=== PATIENT | female | born 1940 | race Caucasian/White ===

== ENCOUNTER → 2020-05-28 10:33 | Outpatient (BNVA) | payer MEDICARE, SELFPAY | PROVIDERS: PCP Internal Medicine Cardiovascular Disease; Referring Provider Internal Medicine Cardiovascular Disease; Visit Provider Internal Medicine | DX: I48.91 Unspecified atrial fibrillation (principal); Z51.81 Encounter for therapeutic drug level monitoring; Z79.01 Long term (current) use of anticoagulants | CPT/HCPCS: 99211 ==

== ENCOUNTER 2020-05-28 18:42 | Outpatient (REF) | payer MEDICARE, SELFPAY | END 2020-05-28 18:43 | disposition home or self-care (01) | LOC: HO.LNP 18:42 | PROVIDERS: Visit Provider Internal Medicine | DX: I48.91 Unspecified atrial fibrillation (principal); Z51.81 Encounter for therapeutic drug level monitoring; Z79.01 Long term (current) use of anticoagulants | CPT/HCPCS: 85610 ==

== ENCOUNTER → 2020-06-08 15:14 | Outpatient (BNVA) | payer MEDICARE, SELFPAY | PROVIDERS: PCP Internal Medicine; Visit Provider Internal Medicine | DX: I48.20 Chronic atrial fibrillation, unspecified (principal); Z51.81 Encounter for therapeutic drug level monitoring; Z79.01 Long term (current) use of anticoagulants | CPT/HCPCS: 85610; 99211 ==

== ENCOUNTER → 2020-06-21 09:23 | Outpatient (BNVA) | payer MEDICARE, SELFPAY | PROVIDERS: PCP Internal Medicine; Visit Provider Internal Medicine | DX: I48.20 Chronic atrial fibrillation, unspecified (principal); Z79.01 Long term (current) use of anticoagulants; Z51.81 Encounter for therapeutic drug level monitoring | CPT/HCPCS: 85610; 99211 ==

== ENCOUNTER → 2020-06-29 09:56 | Outpatient (REF) | payer MEDICARE, SELFPAY ==
--- NOTE | 2020-06-29 10:30 | CA_ITS ---
Transthoracic Echocardiogram Patient (Last, First, Middle): Sandra Herrera A Gender: Female Date of : 1940 Age: 80 Procedure Date: 06/29/2020 Procedure Type: Transthoracic Echocardiogram Location: OP Height: 157.48 cm Weight: 38.56 kg BSA: 1.33 m2 Heart Rate: bpm BP: 102 / 70 mmHg Surgical Elastic Knitter: Carol MD: Pilar Mcguire MD Symptoms: S/P MITRACLIP PROCEDURE Study Quality: Good ECG Rhythm: Atrial Fibrillation Conclusions: - The left ventricular systolic function is low normal. The visually estimated ejection fraction is between 50-55%. - Moderately increased right ventricular cavity size. There is moderate to severely decreased right ventricular systolic function. - Severe biatrial enlargement. - Status post collin-clip procedure. Mean gradient across the mitral valve 4mmHg at 69/min. There is mild mitral valve regurgitation. - There is moderate to severe tricuspid valve regurgitation. Findings Left Ventricle Normal left ventricular cavity size. There is normal left ventricular wall thickness. The left ventricular systolic function is low normal. The visually estimated ejection fraction is between 50-55%. The calculated ejection fraction is 53% by biplane method. There is no evidence of regional wall motion abnormalities. There is a flattened septum in diastole ( D shaped left ventricle) consistent with right ventricular volume overload. Right Ventricle Moderately increased right ventricular cavity size. There is moderate to severely decreased right ventricular systolic function. Atria Severe biatrial enlargement. Suspect iatrogenic [id number] interatrial shunt based on color Doppler. Aortic Valve There is a normal trileaflet aortic valve. There is no aortic valve stenosis. There is mild aortic valve regurgitation. Mitral Valve There is mild mitral valve regurgitation. Status post collin-clip procedure. Mean gradient across the mitral valve 4mmHg at 69/min. Pulmonic Valve The pulmonic valve was not well visualized. There is trace pulmonic valve regurgitation. Tricuspid Valve Normal tricuspid valve structure. There is moderate to severe tricuspid valve regurgitation. The pulmonary artery systolic pressure is normal. Great Vessels The aortic annulus, sinuses of valsalva, and asc aorta are normal in size. Venous The inferior vena cava is normal in size and collapses greater than 50% with inspiration. Pericardium/Pleural There is no evidence of pericardial effusion. Prior Study Comparison Changes noted compared to prior study dated: 12/27/2019. Improved mitral regurgitation severity after MitraClip. Measurements 2D Linear Measurements RVIDd: 3.16 RVIDd Index: 2.38 IVSd: 0.99 0.6-0.9/0.6-1.0 cm LVIDd: 4.78 3.9-5.3/4.2-5.9 cm LVIDd Index: 3.59 2.4-3.2/2.2-3.1 cm/m2 LVIDs: 3.31 2.0-3.6 cm LVPWd: 0.97 0.7-1.1 cm Ao Root: 2.80 2.1-3.5 cm LA Diam: 5.50 2.7-3.8/3.0-4.0 cm LAIDs Index: 4.14 1.5-2.3 cm/m2 LV Mass: 204.56 67-162/88-224 g LV Mass Index: 153.81 43-95/49-115 g/m2 LVOT Diam: 2.00 3.0+(-)1.3 cm 2D Systolic Function EF 4C: 49.70 >55% EF 2C: 55.10 >55% EF BiP: 52.70 >55% Mitral Valve MV VTI: 0.42 MV Pk Eduard: 1.58 MV Mn Eduard: 0.94 MV Pk Grad: 10.00 MV Mn Grad: 4.00 MVA Continuity: 0.74 MR ERO: 13.00 MR Alias Eduard: 0.29 MR RAD: 0.60 Aortic Valve AoV Pk Eduard: 1.08 AoV Mn Eduard: 0.78 AoV VTI: 0.21 AoV Pk Grad: 5.00 Aov Mn Grad: 3.00 JAZMIN Cont.VTI: 1.49 AI Pk Eduard: 3.76 AI Sully: 1.90 LVOT LVOT Pk Eduard: 0.55 LVOT Mn Eduard: 0.33 LVOT VTI: 0.10 LVOT Pk Grad: 1.00 LVOT Mn Grad: 1.00 LVOT Diam: 2.00 LVOT Area: 3.14 Tricuspid Valve TR Pk Eduard: 2.40 TR Pk Grad: 23.00 RA Press: 8.00 RVSP: 31.00 Great Vessels Aorta Ao Root-2D: 2.80 2.0-3.7 cm Ao Asc: 3.00 2.1-3.4 cm Ao Arch: 2.90 Updated in Other Vendor System with Status of Final Pedro Joseph MD electronically signed on 06/29/2020 1:03:25 PM with status of Final
== END ==
LOC: HO.CARD 09:56
PROVIDERS: Visit Provider Internal Medicine Cardiovascular Disease
DX: Z98.890 Other specified postprocedural states (principal); Z95.2 Presence of prosthetic heart valve
CPT/HCPCS: 85610; 93306

== ENCOUNTER → 2020-07-06 08:51 | Outpatient (BNVA) | payer MEDICARE, SELFPAY | PROVIDERS: PCP Internal Medicine; Visit Provider Internal Medicine | DX: I48.20 Chronic atrial fibrillation, unspecified (principal); Z51.81 Encounter for therapeutic drug level monitoring; Z79.01 Long term (current) use of anticoagulants | CPT/HCPCS: 85610; 99211 ==

== ENCOUNTER → 2020-07-13 10:05 | Outpatient (BNVA) | payer MEDICARE, SELFPAY | PROVIDERS: PCP Internal Medicine; Referring Provider Internal Medicine; Visit Provider Internal Medicine Cardiovascular Disease | DX: I34.0 Nonrheumatic mitral (valve) insufficiency (principal); I38 Endocarditis, valve unspecified; I50.9 Heart failure, unspecified; I48.20 Chronic atrial fibrillation, unspecified; Z79.01 Long term (current) use of anticoagulants; Z95.818 Presence of other cardiac implants and grafts | CPT/HCPCS: 99212 ==

== ENCOUNTER → 2020-07-14 09:57 | Outpatient (BNVA) | payer MEDICARE, SELFPAY | PROVIDERS: PCP Internal Medicine; Visit Provider Internal Medicine | DX: I48.20 Chronic atrial fibrillation, unspecified (principal); Z51.81 Encounter for therapeutic drug level monitoring; Z79.01 Long term (current) use of anticoagulants | CPT/HCPCS: 85610; 99211 ==

== ENCOUNTER 2020-07-20 09:22 | Outpatient (REF) | payer MEDICARE, SELFPAY ==
[2020-07-20 12:33] LABS: Free T4 (Free Thyroxine) 1.31 ng/dL (0.71-1.85); Thyroid Stimulating Hormone 3.37 uIU/mL (0.32-4.0)
== END 2020-07-20 09:23 | disposition home or self-care (01) ==
LOC: HO.LAB 09:22
PROVIDERS: PCP Internal Medicine; Visit Provider Internal Medicine Endocrinology, Diabetes & Metabolism
DX: E03.9 Hypothyroidism, unspecified (principal)
CPT/HCPCS: 84439; 84443; 85610; 99211

== ENCOUNTER → 2020-07-30 09:42 | Outpatient (BNVA) | payer MEDICARE, SELFPAY | PROVIDERS: PCP Internal Medicine; Visit Provider Internal Medicine | DX: I48.91 Unspecified atrial fibrillation (principal); Z51.81 Encounter for therapeutic drug level monitoring; Z79.01 Long term (current) use of anticoagulants | CPT/HCPCS: 85610; 99211 ==

== ENCOUNTER → 2020-08-09 10:18 | Outpatient (BNVA) | payer MEDICARE, SELFPAY | PROVIDERS: PCP Internal Medicine; Visit Provider Internal Medicine | DX: I48.91 Unspecified atrial fibrillation (principal); Z51.81 Encounter for therapeutic drug level monitoring; Z79.01 Long term (current) use of anticoagulants | CPT/HCPCS: 85610; 99211 ==

== ENCOUNTER → 2020-08-16 10:06 | Outpatient (BNVA) | payer MEDICARE, SELFPAY | PROVIDERS: PCP Internal Medicine; Visit Provider Internal Medicine | DX: I48.91 Unspecified atrial fibrillation (principal); Z51.81 Encounter for therapeutic drug level monitoring; Z79.01 Long term (current) use of anticoagulants | CPT/HCPCS: 85610; 99211 ==

== ENCOUNTER → 2020-09-01 10:39 | Outpatient (BNVA) | payer MEDICARE, SELFPAY | PROVIDERS: PCP Internal Medicine; Visit Provider Internal Medicine | DX: I48.20 Chronic atrial fibrillation, unspecified (principal); Z79.01 Long term (current) use of anticoagulants; Z51.81 Encounter for therapeutic drug level monitoring | CPT/HCPCS: 85610; 99211 ==

== ENCOUNTER → 2020-09-08 10:16 | Outpatient (BNVA) | payer MEDICARE, SELFPAY | PROVIDERS: PCP Internal Medicine; Visit Provider Internal Medicine | DX: I48.91 Unspecified atrial fibrillation (principal); I48.20 Chronic atrial fibrillation, unspecified; Z79.01 Long term (current) use of anticoagulants; Z51.81 Encounter for therapeutic drug level monitoring | CPT/HCPCS: 85610; 99211 ==

== ENCOUNTER → 2020-09-14 09:39 | Outpatient (BNVA) | payer MEDICARE, SELFPAY | PROVIDERS: PCP Internal Medicine; Visit Provider Internal Medicine Cardiovascular Disease | DX: I50.9 Heart failure, unspecified (principal); I38 Endocarditis, valve unspecified; I48.20 Chronic atrial fibrillation, unspecified; I34.0 Nonrheumatic mitral (valve) insufficiency; I07.1 Rheumatic tricuspid insufficiency; I51.7 Cardiomegaly | CPT/HCPCS: 99212 ==

== ENCOUNTER → 2020-09-17 10:25 | Outpatient (BNVA) | payer MEDICARE, SELFPAY | PROVIDERS: PCP Internal Medicine; Visit Provider Internal Medicine | DX: I48.91 Unspecified atrial fibrillation (principal); Z51.81 Encounter for therapeutic drug level monitoring; Z79.01 Long term (current) use of anticoagulants | CPT/HCPCS: 85610 ==

== ENCOUNTER → 2020-10-01 10:17 | Outpatient (BNVA) | payer MEDICARE, SELFPAY | PROVIDERS: PCP Internal Medicine; Visit Provider Internal Medicine | DX: I48.91 Unspecified atrial fibrillation (principal); Z51.81 Encounter for therapeutic drug level monitoring; Z79.01 Long term (current) use of anticoagulants | CPT/HCPCS: 85610; 99211 ==

== ENCOUNTER → 2020-10-22 10:28 | Outpatient (BNVA) | payer MEDICARE, SELFPAY | PROVIDERS: PCP Internal Medicine; Visit Provider Internal Medicine | DX: I48.91 Unspecified atrial fibrillation (principal); Z51.81 Encounter for therapeutic drug level monitoring; Z79.01 Long term (current) use of anticoagulants | CPT/HCPCS: 85610; 99211 ==

== ENCOUNTER → 2020-11-12 10:18 | Outpatient (BNVA) | payer MEDICARE, SELFPAY | PROVIDERS: PCP Internal Medicine; Visit Provider Internal Medicine | DX: I48.91 Unspecified atrial fibrillation (principal); Z51.81 Encounter for therapeutic drug level monitoring; Z79.01 Long term (current) use of anticoagulants | CPT/HCPCS: 85610; 99211 ==

== ENCOUNTER 2020-11-22 10:22 | Outpatient (REF) | payer MEDICARE, SELFPAY ==
[2020-11-22 12:03] LABS: MANUAL DIFF FLAG NO
[2020-11-22 12:06] LABS: Glucose Urine UA NEG (NEG); Leukocyte Esterase Urine TRACE (NEG); Nitrite Urine NEG (NEG); Specific Gravity - Urine 1.025 (1.005-1.025); UACC Culture Trigger YES; Urine Blood 2+ (NEG); Urine Ketones NEG (NEG); Urine Protein TRACE MG/DL (NEG-TRACE)
[2020-11-22 12:09] LABS: Appearance Urine CLEAR; Color Urine YELLOW
[2020-11-22 12:10] LABS: Basophils Percent Auto 0.7 % (0-2); Eosinophils Absolute Auto 0.1 X10*3/uL (0.0-0.4); Eosinophils Percent Auto 3.2 % (0-4); Hematocrit 44.7 % (37-47); Hemoglobin 14.1 g/dl (12.0-16.0); Imm Gran Abs Auto 0.02 X10*3/uL (0.00-0.03); Imm Gran Pct Auto 0.5 % (0.0-0.4); Lymphocytes Absolute Auto 1.2 X10*3/uL (1.2-4.9); Lymphocytes Percent Auto 27.8 % (20-40); Mean Corpuscular HGB Conc 31.5 g/dl (31.0-35.0); Mean Platelet Volume 9.3 fL (9.4-12.3); Monocytes Absolute Auto 0.6 X10*3/uL (0.1-1.2); Monocytes Percent Auto 13.1 % (2-11); Neutrophils Absolute Auto 2.4 X10*3/uL (2.0-8.3); Neutrophils Percent Auto 54.7 % (45-73); Platelet Count 196 X10*3/uL (160-400); Red Blood Count 4.86 X10*6/uL (4.20-5.50); Red Cell Distribution Width 17.3 % (11.0-16.0); White Blood Count 4.4 X10*3/uL (4.8-10.8)
[2020-11-22 12:19] LABS: Bacteria Urine TRACE /LPF; Squamous Epithelial Cell Urine 4+ /LPF
[2020-11-22 12:33] LABS: B Type Natriuretic Peptide 1150 pg/mL (<100)
[2020-11-22 12:36] LABS: Alanine Aminotransferase 24 U/L (0-31); Albumin Level 3.7 g/dL (3.5-5.0); Alkaline Phosphatase 98 U/L (39-117); Anion Gap 13 (12-20); Aspartate Amino Transferase 38 U/L (5-31); Blood Urea Nitrogen 38 mg/dL (9-16); Calcium 8.8 mg/dL (8.4-10.2); Carbon Dioxide 29 mmol/L (22-29); Chloride 99 mmol/L (96-108); Cholesterol 197 mg/dL; Estimated Glomerular Filt Rate 45; Glucose Fasting 89 mg/dL (60-99); HDL Cholesterol 53 mg/dL; LDL Cholesterol Calculated 120 mg/dl; Potassium 4.2 mmol/L (3.3-5.1); Sodium 137 mmol/L (135-145); Total Protein 6.5 g/dL (6.5-8.0); Triglycerides 120 mg/dL
[2020-11-22 12:57] LABS: Free T4 (Free Thyroxine) 1.59 ng/dL (0.71-1.85); Thyroid Stimulating Hormone 0.44 uIU/mL (0.32-4.0); Vitamin D 25-OH Total 49.7 ng/mL (>30)
== END 2020-11-22 10:23 | disposition home or self-care (01) ==
LOC: HO.LAB 10:22
PROVIDERS: PCP Internal Medicine; Visit Provider Internal Medicine
DX: I50.30 Unspecified diastolic (congestive) heart failure (principal); I38 Endocarditis, valve unspecified; I48.20 Chronic atrial fibrillation, unspecified; I50.9 Heart failure, unspecified; K58.9 Irritable bowel syndrome, unspecified; N18.31 Chronic kidney disease, stage 3a; E78.00 Pure hypercholesterolemia, unspecified; E03.9 Hypothyroidism, unspecified; E55.9 Vitamin D deficiency, unspecified; M81.0 Age-related osteoporosis without current pathological fracture
CPT/HCPCS: 36415; 80053; 80061; 81001; 81003; 82306; 83880; 84439; 84443; 85025; 87086

== ENCOUNTER → 2020-11-26 10:14 | Outpatient (BNVA) | payer MEDICARE, SELFPAY | PROVIDERS: PCP Internal Medicine; Visit Provider Internal Medicine | DX: I48.20 Chronic atrial fibrillation, unspecified (principal); Z79.01 Long term (current) use of anticoagulants; Z51.81 Encounter for therapeutic drug level monitoring | CPT/HCPCS: 85610; 99211 ==

== ENCOUNTER → 2020-12-10 10:14 | Outpatient (BNVA) | payer MEDICARE, SELFPAY | PROVIDERS: PCP Internal Medicine; Visit Provider Internal Medicine | DX: I48.91 Unspecified atrial fibrillation (principal); Z79.01 Long term (current) use of anticoagulants; Z51.81 Encounter for therapeutic drug level monitoring | CPT/HCPCS: 85610; 99211 ==

== ENCOUNTER → 2020-12-14 09:28 | Outpatient (BNVA) | payer MEDICARE, SELFPAY | PROVIDERS: PCP Internal Medicine; Visit Provider Nurse Practitioner Family | DX: I50.9 Heart failure, unspecified (principal); I38 Endocarditis, valve unspecified; I34.0 Nonrheumatic mitral (valve) insufficiency; I07.1 Rheumatic tricuspid insufficiency; I48.20 Chronic atrial fibrillation, unspecified; I51.7 Cardiomegaly | CPT/HCPCS: 99212 ==

== ENCOUNTER → 2020-12-24 10:12 | Outpatient (BNVA) | payer MEDICARE, SELFPAY | PROVIDERS: PCP Internal Medicine; Visit Provider Internal Medicine | DX: I48.20 Chronic atrial fibrillation, unspecified (principal); Z51.81 Encounter for therapeutic drug level monitoring; Z79.01 Long term (current) use of anticoagulants | CPT/HCPCS: 85610; 99211 ==

== ENCOUNTER 2020-12-30 09:40 | Outpatient (REF) | payer MEDICARE, SELFPAY ==
[2020-12-30 11:16] LABS: Alanine Aminotransferase 27 U/L (0-31); Albumin Level 3.8 g/dL (3.5-5.0); Alkaline Phosphatase 106 U/L (39-117); Anion Gap 12 (12-20); Aspartate Amino Transferase 40 U/L (5-31); Bilirubin Total 1.1 mg/dL (0.0-1.0); Blood Urea Nitrogen 44 mg/dL (9-16); Calcium 9.4 mg/dL (8.4-10.2); Carbon Dioxide 30 mmol/L (22-29); Chloride 102 mmol/L (96-108); Estimated Glomerular Filt Rate 41; Glucose Random 112 mg/dL (60-115); Potassium 4.3 mmol/L (3.3-5.1); Sodium 140 mmol/L (135-145); Total Protein 6.6 g/dL (6.5-8.0)
[2020-12-30 11:38] LABS: Vitamin D 25-OH Total 50.8 ng/mL (>30)
[2021-01-04 16:57] LABS: N-Telopeptide 41 (see note); NTXCreaRU 18 mg/dL (20-275)
== END 2020-12-30 09:41 | disposition home or self-care (01) ==
LOC: HO.LAB 09:40
PROVIDERS: PCP Internal Medicine; Visit Provider Internal Medicine Endocrinology, Diabetes & Metabolism
DX: M81.0 Age-related osteoporosis without current pathological fracture (principal)
CPT/HCPCS: 36415; 80053; 82306; 82523

== ENCOUNTER → 2020-12-31 09:40 | Outpatient (BNVA) | payer MEDICARE, SELFPAY | PROVIDERS: PCP Internal Medicine; Visit Provider Internal Medicine Endocrinology, Diabetes & Metabolism | DX: M81.0 Age-related osteoporosis without current pathological fracture (principal); E03.9 Hypothyroidism, unspecified | CPT/HCPCS: 99212 ==

== ENCOUNTER → 2021-01-11 10:11 | Outpatient (BNVA) | payer MEDICARE, SELFPAY | PROVIDERS: PCP Internal Medicine; Visit Provider Internal Medicine | DX: I48.91 Unspecified atrial fibrillation (principal); Z51.81 Encounter for therapeutic drug level monitoring; Z79.01 Long term (current) use of anticoagulants | CPT/HCPCS: 85610; 99211 ==

== ENCOUNTER → 2021-01-25 10:22 | Outpatient (BNVA) | payer MEDICARE, SELFPAY | PROVIDERS: PCP Internal Medicine; Visit Provider Internal Medicine | DX: Z79.01 Long term (current) use of anticoagulants (principal) | CPT/HCPCS: 85610; 99211 ==

== ENCOUNTER 2021-01-27 09:04 | Outpatient (REF) | payer MEDICARE, SELFPAY ==
--- NOTE | ~2021-01-27 | MM_ITS ---
EXAMINATION: BONE DENSITOMETRY CLINICAL INDICATION: Age-related osteoporosis without current pathological fracture. COMPARISON: Previous BD dated 09/24/2018 and baseline BD dated 10/04/2007. TECHNIQUE: Using a [employer] DXA System (software version: 13.1) manufactured by [employer], dual-energy x-ray absorptiometry was performed of the lumbar spine and left hip. The images are of good technical quality. Summary results are attached. FINDINGS: AP SPINE L1-L4: Current: BMD 0.799 g/cm2, Z-score -0.5, T-score -3.2, osteoporosis, 10.0% decrease from previous, 18.0% decrease from baseline (<5% change is not significant). Prior: BMD 0.888 g/cm2. Baseline: BMD 0.974 g/cm2. LEFT FEMUR, NECK: Current: BMD 0.617 g/cm2, Z-score -0.3, T-score -3.0, osteoporosis. Prior: BMD 0.735 g/cm2. Baseline: BMD 0.783 g/cm2. LEFT FEMUR, TOTAL: Current: BMD 0.660 g/cm2, Z-score -0.1, T-score -2.8, osteoporosis, 10.7% decrease from previous, 24.0% decrease from baseline (<5% change is not significant). Prior: BMD 0.739 g/cm2. Baseline: BMD 0.868 g/cm2. IDENTIFIED RISK FACTORS: Height loss, family history (parental hip fracture), menopause. HISTORY OF FRACTURE: None listed. MEDICATIONS: Vitamin D. MM/XR DEXA axial skeleton IMPRESSION: 1. DIAGNOSIS: Osteoporosis based on the lowest T-score value of -3.2 in the lumbar spine applying World Health Organization criteria. 2. 10-YEAR FRACTURE RISK PREDICTION, FRAX: Major osteoporotic fracture (clinical spine, forearm, hip or shoulder) 39.1%. Hip fracture 31.1%. 3. Treatment Recommendations: NOF guidelines recommend consideration for treatment in postmenopausal women and men age 50 and older presenting with the following: -A hip or vertebral (clinical or morphometric) fracture. -T-score less than or equal to -2.5 at the femoral neck or spine after appropriate evaluation to exclude secondary causes. -Low bone mass at the hip or spine and a 10-year fracture probability by FRAX of greater than or equal to 3% for hip fracture or greater than or equal to 20% for major osteoporotic fracture based on the [place] adapted WHO algorithm. 4. Other Recommendations: All treatment decisions require clinical judgment and consideration of individual patient factors, including patient preferences, comorbidities, previous drug use, risk factors not captured in the FRAX model (e.g. frailty, falls, vitamin D deficiency, increased bone turnover, interval significant decline in bone density) and possible under or overestimation of fracture risk by FRAX. Additional medical evaluation for secondary cause of low bone mineral density may be appropriate. FUTURE SCAN RECOMMENDATION: People with diagnosed cases of osteoporosis or at high risk for fracture should have regular bone mineral density tests. For patients eligible for Medicare, routine testing is allowed once every 2 years. The testing frequency can be increased to one year for patients who have rapidly progressing disease, those who are receiving or discontinuing medical therapy to restore bone mass, or have additional risk factors.
[2021-01-27 12:12] LABS: MANUAL DIFF FLAG NO
[2021-01-27 12:18] LABS: Basophils Percent Auto 0.6 % (0-2); Eosinophils Absolute Auto 0.1 X10*3/uL (0.0-0.4); Eosinophils Percent Auto 2.2 % (0-4); Hematocrit 44.3 % (37-47); Hemoglobin 13.9 g/dl (12.0-16.0); Imm Gran Abs Auto 0.01 X10*3/uL (0.00-0.03); Imm Gran Pct Auto 0.2 % (0.0-0.4); Lymphocytes Absolute Auto 1.1 X10*3/uL (1.2-4.9); Lymphocytes Percent Auto 22.8 % (20-40); Mean Corpuscular HGB Conc 31.4 g/dl (31.0-35.0); Mean Corpuscular Hemoglobin 29.8 pg (27.0-33.0); Mean Corpuscular Volume 94.9 fL (80-98); Monocytes Absolute Auto 0.5 X10*3/uL (0.1-1.2); Monocytes Percent Auto 9.8 % (2-11); Neutrophils Absolute Auto 3.2 X10*3/uL (2.0-8.3); Neutrophils Percent Auto 64.4 % (45-73); Platelet Count 170 X10*3/uL (160-400); Red Blood Count 4.67 X10*6/uL (4.20-5.50); Red Cell Distribution Width 15.8 % (11.0-16.0); White Blood Count 4.9 X10*3/uL (4.8-10.8)
[2021-01-27 12:26] LABS: D Dimer < 200 NG/ML
[2021-01-27 13:02] LABS: Alanine Aminotransferase 21 U/L (0-31); Alkaline Phosphatase 104 U/L (39-117); Anion Gap 12 (12-20); Aspartate Amino Transferase 35 U/L (5-31); Bilirubin Total 1.2 mg/dL (0.0-1.0); Blood Urea Nitrogen 36 mg/dL (9-16); Calcium 9.1 mg/dL (8.4-10.2); Carbon Dioxide 28 mmol/L (22-29); Chloride 105 mmol/L (96-108); Estimated Glomerular Filt Rate 44; Glucose Random 87 mg/dL (60-115); Potassium 4.3 mmol/L (3.3-5.1); Sodium 141 mmol/L (135-145); Total Protein 6.9 g/dL (6.5-8.0)
[2021-01-27 13:33] LABS: Erythrocyte Sedimentation Rate 7 MM/HR (0-20)
== END 2021-01-27 09:05 | disposition home or self-care (01) ==
LOC: HO.MAMMO 09:04
PROVIDERS: Absent Provider Internal Medicine; PCP Internal Medicine; Visit Provider Internal Medicine Endocrinology, Diabetes & Metabolism
DX: Z13.820 Encounter for screening for osteoporosis (principal); M81.0 Age-related osteoporosis without current pathological fracture; R23.3 Spontaneous ecchymoses; Z78.0 Asymptomatic menopausal state; Z79.01 Long term (current) use of anticoagulants; Z79.899 Other long term (current) drug therapy
CPT/HCPCS: 36415; 77080; 80053; 85025; 85379; 85652

== ENCOUNTER → 2021-02-15 10:12 | Outpatient (BNVA) | payer MEDICARE, SELFPAY | PROVIDERS: PCP Internal Medicine; Visit Provider Internal Medicine | DX: I48.91 Unspecified atrial fibrillation (principal); Z51.81 Encounter for therapeutic drug level monitoring; Z79.01 Long term (current) use of anticoagulants | CPT/HCPCS: 85610; 99211 ==

== ENCOUNTER → 2021-03-08 09:58 | Outpatient (BNVA) | payer MEDICARE, SELFPAY | PROVIDERS: PCP Internal Medicine; Visit Provider Internal Medicine | DX: I48.20 Chronic atrial fibrillation, unspecified (principal); Z51.81 Encounter for therapeutic drug level monitoring; Z79.01 Long term (current) use of anticoagulants | CPT/HCPCS: 85610; 99211 ==

== ENCOUNTER → 2021-03-22 09:31 | Outpatient (BNVA) | payer MEDICARE, SELFPAY | PROVIDERS: PCP Internal Medicine; Visit Provider Internal Medicine | DX: I48.20 Chronic atrial fibrillation, unspecified (principal); I50.9 Heart failure, unspecified; I83.893 Varicose veins of bilateral lower extremities with other complications; Z51.81 Encounter for therapeutic drug level monitoring; Z79.01 Long term (current) use of anticoagulants; Z79.899 Other long term (current) drug therapy; Z98.890 Other specified postprocedural states | CPT/HCPCS: 85610; 99211; 99212 ==

== ENCOUNTER → 2021-04-12 10:13 | Outpatient (BNVA) | payer MEDICARE, SELFPAY | PROVIDERS: PCP Internal Medicine; Visit Provider Internal Medicine | DX: I48.20 Chronic atrial fibrillation, unspecified (principal); Z51.81 Encounter for therapeutic drug level monitoring; Z79.01 Long term (current) use of anticoagulants | CPT/HCPCS: 85610; 99211 ==

== ENCOUNTER → 2021-04-15 09:05 | Outpatient (REF) | payer MEDICARE, SELFPAY ==
--- NOTE | 2021-04-15 09:08 | CA_ITS ---
Transthoracic Echocardiogram Patient (Last, First, Middle): Sandra Herrera A Gender: Female Date of : 1940 Age: 80 Procedure Date: 04/15/2021 Procedure Type: Transthoracic Echocardiogram Location: OP Height: 157.48 cm Weight: 39.46 kg BSA: 1.34 m2 Heart Rate: bpm BP: 110 / 60 mmHg Bioengineer: MASSIEL Referring MD: Mikey Rodriguez MD Track Equipment Operator: Mikey Rodriguez MD Symptoms: S/p Mitraclip Study Quality: Good ECG Rhythm: Atrial Fibrillation Conclusions: - 1. Low normal LV systolic function next 2. Severe biatrial enlargement 3. Status post MitraClip procedure with mean gradient across lateral orifice of 4 mm of mercury with mild mitral regurgitation 4. Severe tricuspid regurgitation 5. Normal RV systolic pressure 6. No pericardial effusion Findings Left Ventricle Normal left ventricular cavity size. There is normal left ventricular wall thickness. The left ventricular systolic function is low normal. The visually estimated ejection fraction is between 50-55%. There is a flattened septum in diastole ( D shaped left ventricle) consistent with right ventricular volume overload. Diastolic function is indeterminate on the basis of available data. Right Ventricle Severely increased right ventricular cavity size. There is low normal right ventricular systolic function. Atria Severe biatrial enlargement. There is no evidence of interatrial shunt. Aortic Valve There is mild thickening of the aortic valve. There is no aortic valve stenosis. There is trace (trivial) aortic valve regurgitation. Mitral Valve There is moderate anterior and severe posterior mitral leaflet thickening. The anterior mitral leaflet has restricted mobility and the posterior mitral leaflet has restricted mobility. There is mild mitral valve regurgitation. The mitral regurgitation jet is directed posteriorly. There is mild mitral valve stenosis. Mobility consistent with MitraClip procedure, 2 separate orifice with mean gradient of 4 mm of mercury through the lateral orifice. Pulmonic Valve The pulmonic valve is likely normal. There is trace to mild pulmonic valve regurgitation. Tricuspid Valve Normal tricuspid valve structure. There is severe tricuspid valve regurgitation. The tricuspid regurgitation jet is directed centrally. The right ventricular systolic pressure is normal. The right ventricular systolic pressure is 29 mmHg. Mildly elevated right atrial pressure. There is poor coaptation of leaflets Great Vessels All visible segments of the aorta are normal in size. The pulmonary artery was not well visualized. Venous The inferior vena cava is moderately dilated and collapses greater than 50% with inspiration. Pericardium/Pleural There is no evidence of pericardial effusion. Prior Study Comparison Changes noted compared to prior study dated: 06/29/2020. Severe tricuspid regurgitation noted, due to poor coaptation of tricuspid leaflets Measurements 2D Linear Measurements IVSd: 1.01 0.6-0.9/0.6-1.0 cm LVIDd: 4.47 3.9-5.3/4.2-5.9 cm LVIDd Index: 3.34 2.4-3.2/2.2-3.1 cm/m2 LVIDs: 3.25 2.0-3.6 cm LVPWd: 1.00 0.7-1.1 cm Ao Root: 3.00 2.1-3.5 cm LA Diam: 5.10 2.7-3.8/3.0-4.0 cm LAIDs Index: 3.81 1.5-2.3 cm/m2 LV Mass: 190.09 67-162/88-224 g LV Mass Index: 141.86 43-95/49-115 g/m2 LVOT Diam: 1.90 3.0+(-)1.3 cm 2D Systolic Function EF 4C: 53.70 >55% EF 2C: 56.60 >55% EF BiP: 55.70 >55% Mitral Valve MV VTI: 0.49 MV Pk Eduard: 2.11 MV Mn Eduard: 1.10 MV Pk Grad: 18.00 MV Mn Grad: 6.00 PHT: 87.00 MVA PHT: 2.53 MVA Continuity: 0.58 Decel Castro: 6.91 Aortic Valve AoV Pk Eduard: 0.85 AoV Mn Eduard: 0.63 AoV VTI: 0.16 AoV Pk Grad: 3.00 Aov Mn Grad: 2.00 JAZMIN Cont.VTI: 1.80 AI Pk Eduard: 3.80 AI Castro: 1.29 LVOT LVOT Pk Eduard: 0.49 LVOT Mn Eduard: 0.30 LVOT VTI: 0.10 LVOT Pk Grad: 1.00 LVOT Mn Grad: 0.00 LVOT Diam: 1.90 LVOT Area: 2.84 Right Ventricle TAPSE (mm): 1.65 TVS' Eduard: 11.30 Tricuspid Valve TR Pk Eduard: 2.30 TR Pk Grad: 21.00 RA Press: 8.00 RVSP: 29.00 Great Vessels Aorta Ao Root-2D: 3.00 2.0-3.7 cm Ao Asc: 2.90 2.1-3.4 cm Ao Arch: 2.70 Updated in Other Vendor System with Status of Final Mikey Rodriguez MD electronically signed on 04/16/2021 2:00:55 PM with status of Final
== END ==
LOC: HO.CARD 09:05
PROVIDERS: PCP Internal Medicine; Visit Provider Internal Medicine Cardiovascular Disease
DX: Z95.818 Presence of other cardiac implants and grafts (principal); Z98.890 Other specified postprocedural states; Z95.2 Presence of prosthetic heart valve
CPT/HCPCS: 93306

== ENCOUNTER → 2021-05-03 10:14 | Outpatient (BNVA) | payer MEDICARE, SELFPAY | PROVIDERS: PCP Internal Medicine; Visit Provider Internal Medicine | DX: I48.20 Chronic atrial fibrillation, unspecified (principal); Z51.81 Encounter for therapeutic drug level monitoring; Z79.01 Long term (current) use of anticoagulants | CPT/HCPCS: 85610; 99211 ==

== ENCOUNTER → 2021-05-31 10:10 | Outpatient (BNVA) | payer MEDICARE, SELFPAY | PROVIDERS: PCP Internal Medicine; Visit Provider Internal Medicine | DX: I48.20 Chronic atrial fibrillation, unspecified (principal); Z51.81 Encounter for therapeutic drug level monitoring; Z79.01 Long term (current) use of anticoagulants | CPT/HCPCS: 85610; 99211 ==

== ENCOUNTER → 2021-06-28 10:12 | Outpatient (BNVA) | payer MEDICARE, SELFPAY | PROVIDERS: PCP Internal Medicine; Visit Provider Internal Medicine | DX: I48.20 Chronic atrial fibrillation, unspecified (principal); Z51.81 Encounter for therapeutic drug level monitoring; Z79.01 Long term (current) use of anticoagulants | CPT/HCPCS: 85610; 99211 ==

== ENCOUNTER 2021-07-25 10:20 | Outpatient (REF) | payer MEDICARE, SELFPAY ==
[2021-07-25 12:04] LABS: MANUAL DIFF FLAG NO
[2021-07-25 12:11] LABS: Basophils Percent Auto 0.4 % (0-2); Eosinophils Absolute Auto 0.1 X10*3/uL (0.0-0.4); Eosinophils Percent Auto 1.7 % (0-4); Hematocrit 46.2 % (37.0-47.0); Hemoglobin 14.5 g/dl (12.0-16.0); Imm Gran Abs Auto 0.03 X10*3/uL (0.00-0.03); Imm Gran Pct Auto 0.6 % (0.0-0.4); Lymphocytes Absolute Auto 1.3 X10*3/uL (1.2-4.9); Lymphocytes Percent Auto 24.9 % (20-40); Mean Corpuscular HGB Conc 31.4 g/dl (31.0-35.0); Mean Corpuscular Hemoglobin 30.2 pg (27.0-33.0); Mean Corpuscular Volume 96.3 fL (80.0-98.0); Mean Platelet Volume 8.7 fL (9.4-12.3); Monocytes Absolute Auto 0.5 X10*3/uL (0.1-1.2); Monocytes Percent Auto 9.7 % (2-11); Neutrophils Absolute Auto 3.2 x10*3/uL (2.0-8.3); Neutrophils Percent Auto 62.7 % (45-73); Platelet Count 157 X10*3/uL (160-400); White Blood Count 5.2 X10*3/uL (4.8-10.8)
[2021-07-25 12:31] LABS: Alanine Aminotransferase 25 U/L (0-31); Alkaline Phosphatase 127 U/L (39-117); Anion Gap 12 (12-20); Aspartate Amino Transferase 38 U/L (5-31); Bilirubin Total 1.3 mg/dL (0.0-1.0); Blood Urea Nitrogen 32 mg/dL (9-16); Calcium 9.7 mg/dL (8.4-10.2); Carbon Dioxide 29 mmol/L (22-29); Chloride 104 mmol/L (96-108); Cholesterol 192 mg/dL; Estimated Glomerular Filt Rate 50; Glucose Fasting 96 mg/dL (60-99); HDL Cholesterol 51 mg/dL; LDL Cholesterol Calculated 111 mg/dl; Potassium 4.6 mmol/L (3.3-5.1); Triglycerides 151 mg/dL
[2021-07-25 12:38] LABS: B Type Natriuretic Peptide 1708 pg/mL (<100)
[2021-07-25 12:52] LABS: Free T4 (Free Thyroxine) 1.52 ng/dL (0.71-1.85); Thyroid Stimulating Hormone 1.42 uIU/mL (0.32-4.0); Vitamin D 25-OH Total 44.4 ng/mL (>30)
[2021-07-25 12:55] LABS: Sodium 140 mmol/L (135-145)
== END 2021-07-25 10:21 | disposition home or self-care (01) ==
LOC: HO.LAB 10:20
PROVIDERS: PCP Internal Medicine; Referring Provider Internal Medicine; Visit Provider Internal Medicine
DX: I48.20 Chronic atrial fibrillation, unspecified (principal); I11.0 Hypertensive heart disease with heart failure; I50.9 Heart failure, unspecified; I38 Endocarditis, valve unspecified; E78.00 Pure hypercholesterolemia, unspecified; E03.9 Hypothyroidism, unspecified; E55.9 Vitamin D deficiency, unspecified; Z51.81 Encounter for therapeutic drug level monitoring; Z79.01 Long term (current) use of anticoagulants
CPT/HCPCS: 36415; 80053; 80061; 82306; 83880; 84439; 84443; 85025; 85610; 99211

== ENCOUNTER 2021-07-26 09:24 | Outpatient (REF) | payer MEDICARE, SELFPAY ==
[2021-07-26 10:33] LABS: Appearance Urine HAZY; Color Urine YELLOW; Glucose Urine UA NEG (NEG); Leukocyte Esterase Urine TRACE (NEG); Nitrite Urine POS (NEG); PH 5.5 (5.0-8.0); Specific Gravity - Urine 1.025 (1.005-1.025); UACC Culture Trigger YES; Urine Blood 1+ (NEG); Urine Ketones NEG (NEG); Urine Protein TRACE MG/DL (NEG-TRACE)
[2021-07-26 10:50] LABS: Bacteria Urine 3+ /LPF
[2021-07-26 10:51] LABS: Mucus Urine TRACE /LPF; Squamous Epithelial Cell Urine TRACE /LPF
== END 2021-07-26 09:25 | disposition home or self-care (01) ==
LOC: HO.LDS 09:24
PROVIDERS: PCP Internal Medicine; Visit Provider Internal Medicine
DX: N39.0 Urinary tract infection, site not specified (principal)
CPT/HCPCS: 81001; 81003; 87086; 87088; 87186

== ENCOUNTER → 2021-08-03 11:05 | Outpatient (REF) | payer MEDICARE, SELFPAY ==
--- NOTE | 2021-08-03 11:09 | CA_ITS ---
Transthoracic Echocardiogram Patient (Last, First, Middle): Sandra Herrera A Gender: Female Date of : 1940 Age: 81 Procedure Date: 08/03/2021 Procedure Type: Transthoracic Echocardiogram Location: OP Height: 157.48 cm Weight: 38.56 kg BSA: 1.33 m2 Heart Rate: bpm BP: 116 / 70 mmHg Commercial Banker: MELANIE Referring MD: Mikey Rodriguez MD Mortgage Loan Computation Clerk: Mikey Rodriguez MD Symptoms: Z98.890 - Other specified postprocedural states Study Quality: Good ECG Rhythm: Atrial Fibrillation Conclusions: - 1. Normal LV systolic function 2. Severe biatrial enlargement with small shunt at the level of fossa ovalis 3. MitraClip in position with [id number] mitral regurgitation with possible mild mitral stenosis 4. Severe tricuspid regurgitation 5. Normal calculated RV systolic pressure 6. No pericardial effusion Findings Left Ventricle Normal left ventricular size, thickness, and systolic function. The visually estimated ejection fraction is between 55-60%. Diastolic function is indeterminate on the basis of available data. Right Ventricle Moderately increased right ventricular cavity size. There is borderline right ventricular systolic function. Atria Severe biatrial enlargement. There is evidence of a small secundum atrial septal defect with left to right shunting. Most likely iatrogenic related to MitraClip procedure. Aortic Valve There is mild thickening of the aortic valve. There is no aortic valve stenosis. There is trace (trivial) aortic valve regurgitation. Mitral Valve There is moderate anterior and posterior mitral leaflet thickening. The anterior mitral leaflet has restricted mobility and the posterior mitral leaflet is immobile. There is mild to moderate mitral valve regurgitation. The mitral regurgitation jet is directed posteriorly. The leaflets a tethered together as could be seen in patients status post MitraClip procedure with some refractile portion noted on the posterior leaflet. Mean gradient across 1 of the orifice is 5 mmHg, weighs suggest some stenosis Pulmonic Valve The pulmonic valve is likely normal. Tricuspid Valve Likely normal tricuspid valve structure and function. There is severe tricuspid valve regurgitation. The right ventricular systolic pressure is 28 mmHg. There is poor coaptation of leaflets leading to what appears to be severe tricuspid regurgitation. Great Vessels All visible segments of the aorta are normal in size. The pulmonary artery was not well visualized. Venous The inferior vena cava is moderately dilated and collapses less than 50% with inspiration. Pericardium/Pleural There is no evidence of pericardial effusion. Measurements 2D Linear Measurements IVSd: 0.81 0.6-0.9/0.6-1.0 cm LVIDd: 4.22 3.9-5.3/4.2-5.9 cm LVIDd Index: 3.17 2.4-3.2/2.2-3.1 cm/m2 LVIDs: 2.70 2.0-3.6 cm LVPWd: 1.11 0.7-1.1 cm Ao Root: 2.70 2.1-3.5 cm LA Diam: 5.30 2.7-3.8/3.0-4.0 cm LAIDs Index: 3.98 1.5-2.3 cm/m2 LV Mass: 162.93 67-162/88-224 g LV Mass Index: 122.50 43-95/49-115 g/m2 LVOT Diam: 1.90 3.0+(-)1.3 cm 2D Systolic Function EF 4C: 55.80 >55% EF 2C: 58.50 >55% Mitral Valve MV VTI: 0.41 MV Pk Eduard: 1.86 MV Mn Eduard: 1.09 MV Pk Grad: 14.00 MV Mn Grad: 6.00 MV Pk E: 1.72 MV Decel Time: 287.00 E'Lateral: 8.27 E'Medial: 5.87 E/E' Med: 29.30 E/E' Lat: 20.80 PHT: 84.00 MVA PHT: 2.62 MVA Continuity: 0.87 Decel Edmunds: 6.39 Aortic Valve AoV Pk Eduard: 0.94 AoV Pk Grad: 4.00 AI Pk Eduard: 1.89 AI Edmunds: 0.56 LVOT LVOT Pk Eduard: 0.71 LVOT Mn Eduard: 0.45 LVOT VTI: 0.13 LVOT Pk Grad: 2.00 LVOT Mn Grad: 1.00 LVOT Diam: 1.90 LVOT Area: 2.84 Diastolic Function MV Pk E: 1.72 E'Medial: 5.87 E/E' Med: 29.30 E' Laterial: 8.27 E/E' Lat: 20.80 Right Ventricle TAPSE (mm): 1.82 Tricuspid Valve TR Pk Eduard: 2.22 TR Pk Grad: 20.00 RA Press: 8.00 RVSP: 28.00 Great Vessels Aorta Ao Root-2D: 2.70 2.0-3.7 cm Updated in Other Vendor System with Status of Final Mikey Rodriguez MD electronically signed on 08/03/2021 4:41:02 PM with status of Final
== END ==
LOC: HO.CARD 11:05
PROVIDERS: PCP Internal Medicine; Visit Provider Internal Medicine Cardiovascular Disease
DX: I38 Endocarditis, valve unspecified (principal); I50.9 Heart failure, unspecified; I34.0 Nonrheumatic mitral (valve) insufficiency; Z95.818 Presence of other cardiac implants and grafts; Z98.890 Other specified postprocedural states
CPT/HCPCS: 93306

== ENCOUNTER → 2021-08-09 10:09 | Outpatient (BNVA) | payer MEDICARE, SELFPAY | PROVIDERS: PCP Internal Medicine; Visit Provider Internal Medicine | DX: I48.20 Chronic atrial fibrillation, unspecified (principal); Z51.81 Encounter for therapeutic drug level monitoring; Z79.01 Long term (current) use of anticoagulants | CPT/HCPCS: 85610; 99211 ==

== ENCOUNTER → 2021-08-30 09:57 | Outpatient (BNVA) | payer MEDICARE, SELFPAY | PROVIDERS: PCP Internal Medicine; Visit Provider Internal Medicine | DX: I48.20 Chronic atrial fibrillation, unspecified (principal); Z51.81 Encounter for therapeutic drug level monitoring; Z79.01 Long term (current) use of anticoagulants | CPT/HCPCS: 85610; 99211 ==

== ENCOUNTER 2021-09-13 09:45 | Outpatient (REF) | payer MEDICARE, SELFPAY ==
[2021-09-13 13:02] LABS: Anion Gap 12 (12-20); B Type Natriuretic Peptide 1430 pg/mL (<100); Blood Urea Nitrogen 35 mg/dL (9-16); Calcium 9.8 mg/dL (8.4-10.2); Carbon Dioxide 30 mmol/L (22-29); Chloride 103 mmol/L (96-108); Estimated Glomerular Filt Rate 47; Glucose Random 91 mg/dL (60-115); Potassium 4.9 mmol/L (3.3-5.1); Sodium 140 mmol/L (135-145)
== END 2021-09-13 09:46 | disposition home or self-care (01) ==
LOC: HO.LAB 09:45
PROVIDERS: Absent Provider Internal Medicine Cardiovascular Disease; PCP Internal Medicine; Visit Provider Internal Medicine
DX: I48.20 Chronic atrial fibrillation, unspecified (principal); I38 Endocarditis, valve unspecified; I07.1 Rheumatic tricuspid insufficiency; I50.9 Heart failure, unspecified; Z51.81 Encounter for therapeutic drug level monitoring; Z79.01 Long term (current) use of anticoagulants; Z95.818 Presence of other cardiac implants and grafts; Z98.890 Other specified postprocedural states
CPT/HCPCS: 36415; 80048; 83880; 85610; 93005; 99211; 99212

== ENCOUNTER → 2021-10-11 10:00 | Outpatient (BNVA) | payer MEDICARE, SELFPAY | PROVIDERS: PCP Internal Medicine; Visit Provider Internal Medicine | DX: I48.20 Chronic atrial fibrillation, unspecified (principal); Z51.81 Encounter for therapeutic drug level monitoring; Z79.01 Long term (current) use of anticoagulants | CPT/HCPCS: 85610; 99211 ==

== ENCOUNTER → 2021-11-09 09:52 | Outpatient (BNVA) | payer MEDICARE, SELFPAY | PROVIDERS: PCP Internal Medicine; Visit Provider Internal Medicine | DX: I48.20 Chronic atrial fibrillation, unspecified (principal); Z79.01 Long term (current) use of anticoagulants; Z51.81 Encounter for therapeutic drug level monitoring | CPT/HCPCS: 85610; 99211 ==

== ENCOUNTER 2021-11-25 09:30 | Outpatient (REF) | payer MEDICARE, SELFPAY ==
[2021-11-25 11:34] LABS: MANUAL DIFF FLAG NO
[2021-11-25 11:46] LABS: Basophils Percent Auto 0.5 % (0-2); Eosinophils Absolute Auto 0.1 X10*3/uL (0.0-0.4); Eosinophils Percent Auto 2.7 % (0-4); Hematocrit 44.6 % (37.0-47.0); Hemoglobin 13.9 g/dl (12.0-16.0); Imm Gran Abs Auto 0.02 X10*3/uL (0.00-0.03); Imm Gran Pct Auto 0.5 % (0.0-0.4); Lymphocytes Absolute Auto 1.1 X10*3/uL (1.2-4.9); Lymphocytes Percent Auto 24.3 % (20-40); Mean Corpuscular HGB Conc 31.2 g/dl (31.0-35.0); Mean Corpuscular Hemoglobin 30.9 pg (27.0-33.0); Mean Corpuscular Volume 99.1 fL (80.0-98.0); Mean Platelet Volume 9.4 fL (9.4-12.3); Monocytes Absolute Auto 0.6 X10*3/uL (0.1-1.2); Monocytes Percent Auto 12.7 % (2-11); Neutrophils Absolute Auto 2.6 x10*3/uL (2.0-8.3); Neutrophils Percent Auto 59.3 % (45-73); Platelet Count 170 X10*3/uL (160-400); Red Cell Distribution Width 15.2 % (11.0-16.0); White Blood Count 4.4 X10*3/uL (4.8-10.8)
[2021-11-25 12:03] LABS: Alanine Aminotransferase 24 U/L (0-31); Albumin Level 4.1 g/dL (3.5-5.0); Alkaline Phosphatase 116 U/L (39-117); Anion Gap 12 (12-20); Aspartate Amino Transferase 40 U/L (5-31); Bilirubin Total 1.6 mg/dL (0.0-1.0); Blood Urea Nitrogen 36 mg/dL (9-16); Calcium 9.4 mg/dL (8.4-10.2); Carbon Dioxide 29 mmol/L (22-29); Chloride 103 mmol/L (96-108); Cholesterol 203 mg/dL; Estimated Glomerular Filt Rate 46; Glucose Fasting 94 mg/dL (60-99); HDL Cholesterol 59 mg/dL; LDL Cholesterol Calculated 120 mg/dl; Potassium 4.1 mmol/L (3.3-5.1); Sodium 140 mmol/L (135-145); Total Protein 7.2 g/dL (6.5-8.0); Triglycerides 122 mg/dL
[2021-11-25 12:18] LABS: B Type Natriuretic Peptide 1173 pg/mL (<100)
[2021-11-25 12:27] LABS: Free T4 (Free Thyroxine) 1.32 ng/dL (0.71-1.85); Thyroid Stimulating Hormone 2.01 uIU/mL (0.32-4.0); Vitamin D 25-OH Total 47.3 ng/mL (>30)
== END 2021-11-25 09:31 | disposition home or self-care (01) ==
LOC: HO.HMGCLDS 09:30
PROVIDERS: PCP Internal Medicine; Visit Provider Internal Medicine
DX: E55.9 Vitamin D deficiency, unspecified (principal); E78.00 Pure hypercholesterolemia, unspecified; E03.9 Hypothyroidism, unspecified; I11.0 Hypertensive heart disease with heart failure; I50.9 Heart failure, unspecified
CPT/HCPCS: 36415; 80053; 80061; 82306; 83880; 84439; 84443; 85025

== ENCOUNTER 2021-11-28 07:43 | Outpatient (REF) | payer MEDICARE, SELFPAY ==
[2021-11-28 12:12] LABS: Appearance Urine HAZY; Color Urine YELLOW; Glucose Urine UA NEG (NEG); Leukocyte Esterase Urine 1+ (NEG); Nitrite Urine NEG (NEG); PH 6.5 (5.0-8.0); UACC Culture Trigger YES; Urine Blood 2+ (NEG); Urine Ketones NEG (NEG); Urine Protein TRACE MG/DL (NEG-TRACE)
[2021-11-28 13:23] LABS: Bacteria Urine 4+ /LPF; Calcium Oxalate Crystals Urine 4+ /LPF; RBC Urine 0 /HPF (0); Squamous Epithelial Cell Urine 4+ /LPF
== END 2021-11-28 07:44 | disposition home or self-care (01) ==
LOC: HO.HMGCLNP 07:43
PROVIDERS: Visit Provider Internal Medicine
DX: I10 Essential (primary) hypertension (principal)
CPT/HCPCS: 81001; 81003; 87086; 87088; 87186

== ENCOUNTER → 2021-12-06 10:26 | Outpatient (BNVA) | payer MEDICARE, SELFPAY | PROVIDERS: PCP Internal Medicine; Visit Provider Internal Medicine | DX: I48.20 Chronic atrial fibrillation, unspecified (principal); Z79.01 Long term (current) use of anticoagulants; Z51.81 Encounter for therapeutic drug level monitoring | CPT/HCPCS: 85610; 99211 ==

== ENCOUNTER → 2021-12-20 10:17 | Outpatient (BNVA) | payer MEDICARE, SELFPAY | PROVIDERS: PCP Internal Medicine; Referring Provider Internal Medicine; Visit Provider Internal Medicine Cardiovascular Disease | DX: I50.9 Heart failure, unspecified (principal); I38 Endocarditis, valve unspecified; I48.20 Chronic atrial fibrillation, unspecified; Z79.01 Long term (current) use of anticoagulants | CPT/HCPCS: 99212 ==

== ENCOUNTER → 2022-01-03 10:08 | Outpatient (BNVA) | payer MEDICARE, SELFPAY | PROVIDERS: PCP Internal Medicine; Visit Provider Internal Medicine | DX: I48.20 Chronic atrial fibrillation, unspecified (principal); Z79.01 Long term (current) use of anticoagulants; Z51.81 Encounter for therapeutic drug level monitoring | CPT/HCPCS: 85610; 99211 ==

== ENCOUNTER → 2022-02-01 09:55 | Outpatient (BNVA) | payer MEDICARE, SELFPAY | PROVIDERS: PCP Internal Medicine; Visit Provider Internal Medicine | DX: Z79.01 Long term (current) use of anticoagulants (principal); Z51.81 Encounter for therapeutic drug level monitoring; I48.20 Chronic atrial fibrillation, unspecified | CPT/HCPCS: 85610; 99211 ==

== ENCOUNTER → 2022-02-28 10:28 | Outpatient (BNVA) | payer MEDICARE, SELFPAY | PROVIDERS: PCP Internal Medicine; Visit Provider Internal Medicine | DX: I48.20 Chronic atrial fibrillation, unspecified (principal); Z51.81 Encounter for therapeutic drug level monitoring; Z79.01 Long term (current) use of anticoagulants | CPT/HCPCS: 85610; 99211 ==

== ENCOUNTER → 2022-03-14 09:56 | Outpatient (BNVA) | payer MEDICARE, SELFPAY | PROVIDERS: PCP Internal Medicine; Visit Provider Internal Medicine | DX: I48.20 Chronic atrial fibrillation, unspecified (principal); Z51.81 Encounter for therapeutic drug level monitoring; Z79.01 Long term (current) use of anticoagulants | CPT/HCPCS: 85610; 99211 ==

== ENCOUNTER 2022-03-21 10:14 | Outpatient (REF) | payer MEDICARE, SELFPAY ==
[2022-03-21 10:27] LABS: MANUAL DIFF FLAG NO
[2022-03-21 11:04] LABS: Basophils Percent Auto 0.5 % (0-2); Eosinophils Absolute Auto 0.1 X10*3/uL (0.0-0.4); Eosinophils Percent Auto 2.5 % (0-4); Hematocrit 45.1 % (37.0-47.0); Hemoglobin 14.2 g/dl (12.0-16.0); Imm Gran Abs Auto 0.01 X10*3/uL (0.00-0.03); Imm Gran Pct Auto 0.2 % (0.0-0.4); Lymphocytes Absolute Auto 0.9 X10*3/uL (1.2-4.9); Lymphocytes Percent Auto 20.8 % (20-40); Mean Corpuscular HGB Conc 31.5 g/dl (31.0-35.0); Mean Corpuscular Hemoglobin 31.4 pg (27.0-33.0); Mean Corpuscular Volume 99.8 fL (80.0-98.0); Mean Platelet Volume 8.7 fL (9.4-12.3); Monocytes Absolute Auto 0.5 X10*3/uL (0.1-1.2); Monocytes Percent Auto 12.2 % (2-11); Neutrophils Absolute Auto 2.8 x10*3/uL (2.0-8.3); Neutrophils Percent Auto 63.8 % (45-73); Platelet Count 143 X10*3/uL (160-400); Red Blood Count 4.52 X10*6/uL (4.20-5.50); Red Cell Distribution Width 14.6 % (11.0-16.0); White Blood Count 4.4 X10*3/uL (4.8-10.8)
[2022-03-21 11:17] LABS: Appearance Urine HAZY; Color Urine YELLOW; Glucose Urine UA NEG (NEG); Leukocyte Esterase Urine NEG (NEG); Nitrite Urine NEG (NEG); PH 5.5 (5.0-8.0); Specific Gravity - Urine >= 1.030 (1.005-1.025); UACC Culture Trigger NO; Urine Blood NEG (NEG); Urine Ketones NEG (NEG); Urine Protein 2+ MG/DL (NEG-TRACE)
[2022-03-21 11:33] LABS: B Type Natriuretic Peptide 1424 pg/mL (<100)
[2022-03-21 11:35] LABS: Alanine Aminotransferase 18 U/L (0-31); Albumin Level 4.2 g/dL (3.5-5.0); Alkaline Phosphatase 119 U/L (39-117); Anion Gap 12 (12-20); Aspartate Amino Transferase 36 U/L (5-31); Bilirubin Total 1.5 mg/dL (0.0-1.0); Blood Urea Nitrogen 32 mg/dL (9-16); Calcium 9.2 mg/dL (8.4-10.2); Carbon Dioxide 30 mmol/L (22-29); Chloride 103 mmol/L (96-108); Cholesterol 192 mg/dL; Estimated Glomerular Filt Rate 47; Glucose Fasting 142 mg/dL (60-99); HDL Cholesterol 54 mg/dL; LDL Cholesterol Calculated 119 mg/dl; Potassium 5.2 mmol/L (3.3-5.1); Sodium 140 mmol/L (135-145); Total Protein 7.1 g/dL (6.5-8.0); Triglycerides 95 mg/dL
[2022-03-21 11:42] LABS: Bacteria Urine 1+ /LPF; Squamous Epithelial Cell Urine 1+ /LPF; WBC Urine 0-2 /HPF (0-4)
[2022-03-21 11:51] LABS: Free T4 (Free Thyroxine) 1.22 ng/dL (0.71-1.85); Thyroid Stimulating Hormone 2.14 uIU/mL (0.32-4.0)
== END 2022-03-21 10:15 | disposition home or self-care (01) ==
LOC: HO.LAB 10:14
PROVIDERS: PCP Internal Medicine; Visit Provider Internal Medicine
DX: I11.0 Hypertensive heart disease with heart failure (principal); I50.9 Heart failure, unspecified; I38 Endocarditis, valve unspecified; I48.20 Chronic atrial fibrillation, unspecified; I07.1 Rheumatic tricuspid insufficiency; E03.9 Hypothyroidism, unspecified; E78.00 Pure hypercholesterolemia, unspecified; E55.9 Vitamin D deficiency, unspecified; Z95.818 Presence of other cardiac implants and grafts; Z79.890 Hormone replacement therapy
CPT/HCPCS: 36415; 80053; 80061; 81001; 81003; 82306; 83880; 84439; 84443; 85025; 99212

== ENCOUNTER 2022-04-05 11:00 | Outpatient (REF) | payer MEDICARE, SELFPAY ==
[2022-04-05 14:19] LABS: Anion Gap 15 (12-20); Blood Urea Nitrogen 34 mg/dL (9-16); Calcium 9.3 mg/dL (8.4-10.2); Carbon Dioxide 28 mmol/L (22-29); Chloride 102 mmol/L (96-108); Estimated Glomerular Filt Rate 50; Glucose Random 87 mg/dL (60-115); Potassium 4.9 mmol/L (3.3-5.1); Sodium 140 mmol/L (135-145)
== END 2022-04-05 11:01 | disposition home or self-care (01) ==
LOC: HO.LAB 11:00
PROVIDERS: PCP Internal Medicine; Visit Provider Nurse Practitioner Family
DX: E87.5 Hyperkalemia (principal)
CPT/HCPCS: 36415; 80048

== ENCOUNTER → 2022-04-11 10:27 | Outpatient (BNVA) | payer MEDICARE, SELFPAY | PROVIDERS: PCP Internal Medicine; Visit Provider Internal Medicine | DX: I48.20 Chronic atrial fibrillation, unspecified (principal); Z51.81 Encounter for therapeutic drug level monitoring; Z79.01 Long term (current) use of anticoagulants | CPT/HCPCS: 85610; 99211 ==

== ENCOUNTER 2022-04-11 11:18 | Outpatient (REF) | payer MEDICARE, SELFPAY ==
[2022-04-11 11:32] LABS: Appearance Urine Cloudy; Color Urine Dark Yellow; Glucose Urine UA Negative (Negative); Leukocyte Esterase Urine Moderate (2+) (Negative); Nitrite Urine Positive (Negative); PH 5.5 (5.0-8.0); Specific Gravity - Urine 1.025 (1.005-1.025); Urine Blood Small (1+) (Negative); Urine Ketones Negative (Negative); Urine Protein 30 (1+) mg/dL (Neg-Trace)
[2022-04-11 11:41] LABS: Bacteria Urine 4+ (None Seen); Hyaline Casts Urine 0-2 /LPF; RBC Urine 0-2 /HPF (0-2); Squamous Epithelial Cell Urine 0-2 /HPF; UACC Culture Trigger YES; WBC Clumps Urine Present; WBC Urine 21-50 /HPF (0-5)
== END 2022-04-11 11:19 | disposition home or self-care (01) ==
LOC: HO.LNP 11:18
PROVIDERS: Visit Provider Internal Medicine
DX: I10 Essential (primary) hypertension (principal)
CPT/HCPCS: 81001; 87086; 87088; 87186

== ENCOUNTER → 2022-05-09 10:34 | Outpatient (BNVA) | payer MEDICARE, SELFPAY | PROVIDERS: PCP Internal Medicine; Visit Provider Internal Medicine | DX: I48.20 Chronic atrial fibrillation, unspecified (principal); Z79.01 Long term (current) use of anticoagulants; Z51.81 Encounter for therapeutic drug level monitoring | CPT/HCPCS: 85610; 99211 ==

== ENCOUNTER → 2022-06-06 10:28 | Outpatient (BNVA) | payer MEDICARE, SELFPAY | PROVIDERS: PCP Internal Medicine; Visit Provider Internal Medicine | DX: I48.20 Chronic atrial fibrillation, unspecified (principal); Z79.01 Long term (current) use of anticoagulants; Z51.81 Encounter for therapeutic drug level monitoring | CPT/HCPCS: 85610; 99211 ==

== ENCOUNTER → 2022-07-04 09:50 | Outpatient (BNVA) | payer MEDICARE, SELFPAY | PROVIDERS: PCP Internal Medicine; Visit Provider Internal Medicine | DX: I48.20 Chronic atrial fibrillation, unspecified (principal); Z79.01 Long term (current) use of anticoagulants; Z51.81 Encounter for therapeutic drug level monitoring | CPT/HCPCS: 85610; 99211 ==

== ENCOUNTER → 2022-07-18 09:52 | Outpatient (BNVA) | payer MEDICARE, SELFPAY | PROVIDERS: PCP Internal Medicine; Visit Provider Internal Medicine | DX: I48.20 Chronic atrial fibrillation, unspecified (principal); Z79.01 Long term (current) use of anticoagulants; Z51.81 Encounter for therapeutic drug level monitoring | CPT/HCPCS: 85610; 99211 ==

== ENCOUNTER → 2022-08-02 09:46 | Outpatient (REF) | payer MEDICARE, SELFPAY ==
--- NOTE | 2022-08-02 09:49 | CA_ITS ---
Transthoracic Echocardiogram Patient (Last, First, Middle): Sandra Herrera A Gender: Female Date of : 1940 Age: 82 Procedure Date: 08/02/2022 Procedure Type: Transthoracic Echocardiogram Location: OP Height: 157.48 cm Weight: 39.46 kg BSA: 1.34 m2 Heart Rate: 61 bpm BP: 125 / 80 mmHg Licensed Funeral Director And Embalmer: ROBERTA Referring MD: Mikey Rodriguez MD Physics Instructor: Mikey Rodriguez MD Symptoms: Z98.890 - Other specified postprocedural states Study Quality: Adequate ECG Rhythm: Atrial Fibrillation Conclusions: - 1. Normal LV systolic function 2. Moderately increased right ventricular size with reduced systolic function next 3. Severe biatrial enlargement 4. MitraClip in place with mild mitral regurgitation 5. Mild aortic regurgitation noted 6. Moderate to severe tricuspid regurgitation with mildly elevated right atrial pressures with normal RV systolic pressure 7. No gross pericardial effusion Findings Left Ventricle Normal left ventricular size, thickness, and systolic function. The visually estimated ejection fraction is between 55-60%. Right Ventricle Moderately increased right ventricular cavity size. There is mildly decreased right ventricular systolic function. Atria Severe biatrial enlargement. There is evidence of a small secundum atrial septal defect with left to right shunting. Aortic Valve Normal aortic valve structure and function. There is no aortic valve stenosis. There is mild aortic valve regurgitation. Mitral Valve There is mild anterior and moderate posterior mitral leaflet thickening. There is mild mitral valve regurgitation. The mitral regurgitation jet is directed posteriorly. patient with known prior MitraClip, with leaflet mobility restricted due to the clip. Pulmonic Valve The pulmonic valve is likely normal. There is trace to mild pulmonic valve regurgitation. Tricuspid Valve Normal tricuspid valve structure. There is moderate to severe tricuspid valve regurgitation. Mildly elevated right atrial pressure. There is no evidence of pulmonary hypertension. Great Vessels All visible segments of the aorta are normal in size. The pulmonary artery was not well visualized. Venous The inferior vena cava is moderately dilated and collapses less than 50% with inspiration. Pericardium/Pleural There is no evidence of pericardial effusion. Prior Study Comparison No significant change compared to prior study dated: 08/03/2021. delay in reporting due to technical issues with vendor reporting system Measurements 2D Linear Measurements IVSd: 0.87 0.6-0.9/0.6-1.0 cm LVIDd: 5.35 3.9-5.3/4.2-5.9 cm LVIDd Index: 3.99 2.4-3.2/2.2-3.1 cm/m2 LVIDs: 4.04 2.0-3.6 cm LVPWd: 0.82 0.7-1.1 cm LA Diam: 5.90 2.7-3.8/3.0-4.0 cm LAIDs Index: 4.40 1.5-2.3 cm/m2 LV Mass: 203.61 67-162/88-224 g LV Mass Index: 151.95 43-95/49-115 g/m2 LVOT Diam: 1.80 3.0+(-)1.3 cm 2D Systolic Function EF 4C: 57.20 >55% EF 2C: 55.70 >55% EF BiP: 59.60 >55% Mitral Valve MV Pk E: 1.53 MV Decel Time: 499.00 E'Lateral: 10.10 E'Medial: 5.98 E/E' Med: 25.60 E/E' Lat: 15.10 PHT: 146.00 MVA PHT: 1.51 Decel [place]: 3.07 Aortic Valve AoV Pk Eduard: 0.93 AoV Mn Eduard: 0.61 AoV VTI: 0.18 AoV Pk Grad: 3.00 Aov Mn Grad: 2.00 JAZMIN Cont.VTI: 1.39 LVOT LVOT Pk Eduard: 0.48 LVOT Mn Eduard: 0.33 LVOT VTI: 0.10 LVOT Pk Grad: 1.00 LVOT Mn Grad: 1.00 LVOT Diam: 1.80 LVOT Area: 2.54 Diastolic Function MV Pk E: 1.53 E'Medial: 5.98 E/E' Med: 25.60 E' Laterial: 10.10 E/E' Lat: 15.10 Right Ventricle TAPSE (mm): 14.80 TVS' Eduard: 8.27 Tricuspid Valve TR Pk Eduard: 2.66 TR Pk Grad: 28.00 RA Press: 8.00 RVSP: 36.00 Great Vessels Aorta Sinus of Valsalva: 2.80 2.0-3.5 cm Ao Asc: 2.80 2.1-3.4 cm Pulmonary Valve PV Pk Eduard: 0.68 Peak PV Grad: 2.00 Updated in Other Vendor System with Status of Final Mikey Rodriguez MD electronically signed on 08/04/2022 4:24:56 PM with status of Final
== END ==
LOC: HO.CARD 09:46
PROVIDERS: PCP Internal Medicine; Visit Provider Internal Medicine Cardiovascular Disease
DX: I07.1 Rheumatic tricuspid insufficiency (principal); I38 Endocarditis, valve unspecified; I50.9 Heart failure, unspecified; Z95.818 Presence of other cardiac implants and grafts; Z98.890 Other specified postprocedural states
CPT/HCPCS: 93306

== ENCOUNTER 2022-08-04 09:07 | Outpatient (REF) | payer MEDICARE, SELFPAY ==
[2022-08-04 11:40] LABS: Appearance Urine Cloudy; Color Urine Dark Yellow; Glucose Urine UA Negative (Negative); Leukocyte Esterase Urine Moderate (2+) (Negative); Nitrite Urine Negative (Negative); PH 5.5 (5.0-9.0); UMIC TRIGGER UACC YES; Urine Blood Small (1+) (Negative); Urine Ketones Negative (Negative); Urine Protein 30 (1+) mg/dL (Neg-Trace)
[2022-08-04 11:46] LABS: Bacteria Urine 4+ (None Seen); Hyaline Casts Urine 0-2 /LPF (0-2); UACC Culture Trigger YES; WBC Urine >50 /HPF (0-5)
== END 2022-08-04 09:08 | disposition home or self-care (01) ==
LOC: HO.HMGCLDS 09:07
PROVIDERS: PCP Internal Medicine; Visit Provider Internal Medicine
DX: I10 Essential (primary) hypertension (principal)
CPT/HCPCS: 81001; 87086

== ENCOUNTER → 2022-08-08 09:52 | Outpatient (BNVA) | payer MEDICARE, SELFPAY | PROVIDERS: PCP Internal Medicine; Visit Provider Internal Medicine | DX: I48.20 Chronic atrial fibrillation, unspecified (principal); Z79.01 Long term (current) use of anticoagulants; Z51.81 Encounter for therapeutic drug level monitoring | CPT/HCPCS: 85610; 99211 ==

== ENCOUNTER → 2022-08-22 09:56 | Outpatient (BNVA) | payer MEDICARE, SELFPAY | PROVIDERS: PCP Internal Medicine; Visit Provider Internal Medicine | DX: I48.20 Chronic atrial fibrillation, unspecified (principal); Z79.01 Long term (current) use of anticoagulants; Z51.81 Encounter for therapeutic drug level monitoring | CPT/HCPCS: 85610; 99211 ==

== ENCOUNTER → 2022-09-12 09:37 | Outpatient (BNVA) | payer MEDICARE, SELFPAY | PROVIDERS: PCP Internal Medicine; Visit Provider Internal Medicine | DX: I48.20 Chronic atrial fibrillation, unspecified (principal); Z79.01 Long term (current) use of anticoagulants; Z51.81 Encounter for therapeutic drug level monitoring | CPT/HCPCS: 85610; 99211 ==

== ENCOUNTER → 2022-09-26 09:31 | Outpatient (BNVA) | payer MEDICARE, SELFPAY | PROVIDERS: PCP Internal Medicine; Referring Provider Internal Medicine; Visit Provider Internal Medicine Cardiovascular Disease | DX: I48.20 Chronic atrial fibrillation, unspecified (principal); I50.9 Heart failure, unspecified; I38 Endocarditis, valve unspecified | CPT/HCPCS: 93005; 99212 ==

== ENCOUNTER → 2022-10-10 09:28 | Outpatient (BNVA) | payer MEDICARE, SELFPAY | PROVIDERS: PCP Internal Medicine; Visit Provider Internal Medicine | DX: I48.20 Chronic atrial fibrillation, unspecified (principal); Z51.81 Encounter for therapeutic drug level monitoring; Z79.01 Long term (current) use of anticoagulants | CPT/HCPCS: 85610; 99211 ==

== ENCOUNTER → 2022-11-14 09:34 | Outpatient (BNVA) | payer MEDICARE, SELFPAY | PROVIDERS: PCP Internal Medicine; Visit Provider Internal Medicine | DX: I48.20 Chronic atrial fibrillation, unspecified (principal); Z79.01 Long term (current) use of anticoagulants; Z51.81 Encounter for therapeutic drug level monitoring | CPT/HCPCS: 85610; 99211 ==

== ENCOUNTER 2022-11-28 09:21 | Outpatient (REF) | payer MEDICARE, SELFPAY ==
[2022-11-28 11:30] LABS: MANUAL DIFF FLAG NO
[2022-11-28 11:36] LABS: Appearance Urine Cloudy; Color Urine Dark Yellow; Glucose Urine UA Negative (Negative); Leukocyte Esterase Urine Small (1+) (Negative); Nitrite Urine Negative (Negative); PH 5.5 (5.0-9.0); UMIC TRIGGER UACC YES; Urine Blood Moderate (2+) (Negative); Urine Ketones Negative (Negative); Urine Protein 30 (1+) mg/dL (Neg-Trace)
[2022-11-28 11:47] LABS: Bacteria Urine 2+ (None Seen); Calcium Oxalate Crystals Urine Present; Hyaline Casts Urine 0-2 /LPF (0-2); UACC Culture Trigger YES; WBC Clumps Urine Present; WBC Urine 21-50 /HPF (0-5)
[2022-11-28 11:52] LABS: Basophils Percent Auto 0.4 % (0-2); Eosinophils Absolute Auto 0.3 X10*3/uL (0.0-0.4); Hematocrit 43.6 % (37.0-47.0); Hemoglobin 13.7 g/dl (12.0-16.0); Imm Gran Abs Auto 0.02 X10*3/uL (0.00-0.03); Imm Gran Pct Auto 0.4 % (0.0-0.4); Lymphocytes Absolute Auto 1.1 X10*3/uL (1.2-4.9); Lymphocytes Percent Auto 22.2 % (20-40); Mean Corpuscular HGB Conc 31.4 g/dl (31.0-35.0); Mean Corpuscular Hemoglobin 31.4 pg (27.0-33.0); Mean Platelet Volume 8.9 fL (9.4-12.3); Monocytes Absolute Auto 0.6 X10*3/uL (0.1-1.2); Monocytes Percent Auto 11.6 % (2-11); Neutrophils Percent Auto 60.4 % (45-73); Platelet Count 204 X10*3/uL (160-400); Red Blood Count 4.36 X10*6/uL (4.20-5.50); Red Cell Distribution Width 13.4 % (11.0-16.0)
[2022-11-28 12:48] LABS: Alanine Aminotransferase 25 U/L (0-31); Albumin Level 4.1 g/dL (3.5-5.0); Alkaline Phosphatase 117 U/L (39-117); Anion Gap 15 (12-20); Aspartate Amino Transferase 41 U/L (5-31); Bilirubin Total 1.4 mg/dL (0.0-1.0); Blood Urea Nitrogen 37 mg/dL (9-16); Calcium 9.4 mg/dL (8.4-10.2); Carbon Dioxide 28 mmol/L (22-29); Chloride 104 mmol/L (96-108); Cholesterol 227 mg/dL; Estimated Glomerular Filt Rate 44; Glucose Fasting 90 mg/dL (60-99); HDL Cholesterol 58 mg/dL; LDL Cholesterol Calculated 149 mg/dl; Potassium 4.5 mmol/L (3.3-5.1); Sodium 142 mmol/L (135-145); Triglycerides 100 mg/dL
[2022-11-28 12:49] LABS: Folate 16.3 ng/mL (> or = 4.0); Free T4 (Free Thyroxine) 1.51 ng/dL (0.71-1.85); Thyroid Stimulating Hormone 0.57 uIU/mL (0.32-4.0); Vitamin B12 626 pg/mL (200-900); Vitamin D 25-OH Total 64.8 ng/mL (>30)
== END 2022-11-28 09:22 | disposition home or self-care (01) ==
LOC: HO.HMGCLDS 09:21
PROVIDERS: PCP Internal Medicine; Visit Provider Internal Medicine
DX: I10 Essential (primary) hypertension (principal); E03.9 Hypothyroidism, unspecified; E55.9 Vitamin D deficiency, unspecified; E78.00 Pure hypercholesterolemia, unspecified; E53.8 Deficiency of other specified B group vitamins; R30.0 Dysuria
CPT/HCPCS: 36415; 80053; 80061; 81001; 82306; 82607; 82746; 84439; 84443; 85025; 87086; 87088; 87186

== ENCOUNTER 2022-12-06 09:33 | Outpatient (AMB) | payer MEDICARE, SELFPAY ==
[2022-12-06 09:40] VITALS: BP 124/66; PULSE 58; BMI 16.9
--- NOTE | 2022-12-06 09:40 | A.OFFPC_ITS ---
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: No Allergies Sulfa (Sulfonamide Antibiotics) [Sulfa (Sulfonamides)] Allergy (Mild, Verified 04/09/23 13:54) RASH ciprofloxacin [Cipro] Allergy (Unknown, Verified 04/09/23 13:54) rash scallops Allergy (Unknown, Verified 04/09/23 13:54) Sick to the stomach Medication List - Last Reconciled 12/06/22 by Darrian Proctor MD amoxicillin 2,000 mg PO ONCE PRN cholecalciferol (vitamin D3) 25 mcg PO DAILY 90 days donepezil 10 mg PO DAILY furosemide 20 mg orally One tablet daily except Sunday and Sunday 2 tablets; levothyroxine 75 mcg PO DAILY 90 days metoprolol succinate ER 100 mg PO DAILY 90 days warfarin 2 mg See Protocol PO 4XW 90 days Tobacco use date assessed: 12/06/22 Fall risk assessment: No Falls in past year Last assessed Fall Risk: 12/06/22 HPI 4m follow up HPI Details Patient comes in today for her follow up visit - is again accompanied by her daughter Patient states that she feels okay She denies any headaches or dizziness Denies any chest pains, no SOB No nausea/vomiting, no abdominal pain No change in bowel habits noted Needs a few of her Rx refilled Had her follow up labs done last week - to discuss her results [facility] Medical History Alzheimer's disease Anticoagulated on Coumadin CHF due to valvular disease Chronic atrial fibrillation Chronic kidney disease (CKD), stage III (moderate) Enlarged RV (right ventricle) Hypothyroidism Irritable bowel syndrome (IBS) Mitral regurgitation Osteoporosis Petechial rash Petechial rash Pure hypercholesterolemia Tricuspid regurgitation Surgical History Hx of left mastectomy Hx of tubal ligation No pertinent past surgical history Status post implantation of mitral valve leaflet clip (~06/16/20) Family History Father Hx of blood clots Mother Hx of blood clots Social History Housing: House Alcohol intake: never Patient Tobacco Use Status: Never used Tobacco e-Cigarette/Vaping Use: Never Used Second Hand Smoke Exposure: No service: No Current occupational status: retired Cognitive needs: No Hearing needs: No Vision needs: Yes Questionnaire PHQ-9 Over the last 2 weeks, how often have you been bothered by any of the following problems? 1. Little interest or pleasure in doing things: not at all 2. Feeling down, depressed, or hopeless: not at all 3. Trouble falling or staying asleep, or sleeping too much: not at all 4. Feeling tired or having little energy: not at all 5. Poor appetite or overeating: not at all 6. Feeling bad about yourself - or that you are a failure or have let yourself or your family down: not at all 7. Trouble concentrating on things, such as reading the newspaper or watching television: not at all 8. Moving or speaking so slowly that other people could have noticed. Or the opposite - being so fidgety or restless that you have been moving around a lot more than usual: not at all 9. Thoughts that you would be better off or of hurting yourself in some way: not at all Total score: 0 Depression Screening Interpretation: Negative 23191 - PHQ-9 Billing: Yes Source: Developed by Drs. Freedom Yung, Radha Herrera, Adi Anand and colleagues, with an educational alejandro from [employer]. Thrive Questionnaire Declines Thrive assessment: No Date Thrive assessed: 12/06/22 I am a: Patient What is your living situation today?: I have a steady place to live Within the past 12 months, did the food you bought not last and you didn't have the money to get more?: Never true Within the past 12 months, did you worry whether your food would run out before you got money to buy more?: Never true Do you have trouble paying for medicines?: No Do you have trouble getting transportation to medical appointments?: No Do you have trouble paying your heating and electricity bill?: No Do you have trouble taking care of your child, family member or friend?: No Do you have trouble with day-to-day activities such as bathing, preparing meals, shopping, managing finances, etc.?: No Are you currently unemployed and looking for a job?: No Are you interested in more education?: No Currently or been in a relationship where the following occur: no concerns reported AUDIT C Alcohol Use Questionnaire (AUDIT-C) 1. How often do you have a drink containing alcohol?: Never 3. How often do you have six or more drinks on one occasion?: Never Total Score: 0 Score Reviewed/Action Taken: Yes ALTON-7 AMB Questionnaire ALTON-7 Date ALTON - 7 assessed: 12/06/22 Feeling nervous, anxious, or on edge: 0 = Not at all Not being able to stop or control worryin = Not at all Worrying too much about different things: 0 = Not at all Trouble relaxin = Not at all Being so restless that it is hard to sit still: 0 = Not at all Becoming easily annoyed or irritable: 0 = Not at all Feeling afraid as if something awful might happen: 0 = Not at all Total ALTON-7 score (0-4 normal; 5-9 mild; 10-14 moderate; 15-21 severe): 0 Source: Developed by Drs. Freedom Yung, Radha Herrera, Adi Anand and colleagues, with an educational alejandro from [employer]. Review of Systems Const Denies anorexia (but daughter states that she just eats what she wants, which is not much), Denies chills, Denies difficulty sleeping, Denies fatigue, Denies fever(s) and Denies headache(s) ENT Denies dysphagia, Denies dizziness, Denies otalgia, Denies headache(s), Denies neck pain, Denies odynophagia and Denies sore throat Card Denies chest pain, Denies palpitations and Denies dyspnea Resp Denies cough, Denies dyspnea and Denies wheezing GI Denies abdominal pain, Denies constipation, Denies dysphagia, Denies heartburn, Denies diarrhea, Denies nausea, Denies odynophagia and Denies vomiting Denies difficulty voiding, Denies nocturia and Denies dysuria Musc Denies neck pain Neuro Denies confusion, Denies dizziness, Denies headache(s) and Reports memory loss (stable) Psych Denies confusion and Reports memory loss (stable) Endo Denies fatigue and Denies palpitations Aller/Immun Denies wheezing Physical exam (Primary Care) Vital Signs: Last Vital Signs Pulse 58 12/06/22 09:40 BP 124/66 12/06/22 09:40 BMI result Body Mass Index 16.9 Tobacco/Smoking Status: Tobacco use Status Tobacco use date assessed 12/06/22 12/06/22 09:42 Patient Tobacco Use Status Never used Tobacco 12/06/22 09:42 e-Cigarette/Vaping Use Never Used 12/06/22 09:42 PHQ-9: PHQ-9 Score PHQ-9: Total score 0 12/06/22 10:47 Depression Screening Interpretation: Negative Thrive Assessment: Date of Thrive Assessment Date Thrive assessed 12/06/22 12/06/22 09:42 Currently or been in a relationship where the following occur: no concerns reported Const General: no acute distress and alert; No confusion Orientation/consciousness: No confusion HENMT Ears: TM's normal bilaterally and EAC's normal Throat: Yes posterior oropharynx normal and Yes tonsils normal (no TP congestion noted) Neck Neck: Yes no lymphadenopathy and Yes supple Resp Auscultation: clear to auscultation bilaterally, no rales and no wheezes Cardio Rate: regular rate Rhythm: abnormal rhythm irregularly irregular Heart sounds: Murmur heart sound present systolic III/, at the apex and at the left sternal border GI Palpation (GI): Soft to palpation and nontender Auscultation: normal bowel sounds Neuro General: No confusion Extrem General: Yes no clubbing, cyanosis or edema Results Reviewed Results Reviewed: Laboratory Tests 11/28/22 11/28/22 11/28/22 09:31 09:31 09:31 WBC 5.0 Hgb 13.7 Hct 43.6 Plt Count 204 D Sodium 142 Potassium 4.5 Creatinine 1.18 Estimated GFR 44 Fasting Glucose 90 Calcium 9.4 AST 41 H ALT 25 Triglycerides 100 Cholesterol 227 LDL Cholesterol, Calc 149 HDL Cholesterol 58 Vitamin B12 626 25-OH Vitamin D Total 64.8 TSH 0.57 Free T4 1.51 Ur Specific [place] 1.020 Urine Protein 30 (1+) H Urine Glucose (UA) Negative Urine Blood Moderate (2+) H Assessment and Plan Assessment & Plan (1) Chronic atrial fibrillation: Code(s): I48.20 - Chronic atrial fibrillation, unspecified Plan: Patient remains rate-controlled currently on Metoprolol ER 100 mg QD Continue on long-term anticoagulation with Coumadin - patient continues to follow-up with the [facility] for PT/ INR monitoring regularly (2) CHF due to valvular disease: Code(s): I50.9 - Heart failure, unspecified; I38 - Endocarditis, valve unspecified Plan: Symptoms have improved a lot since her MitraClip procedure in May 2020 Reinforced fluid restriction Continue Furosemide 40 mg alternating with 20 mg once a day Echocardiogram done a couple of years ago (prior to her MitraClip procedure) showed ejection fraction to be between 60-65% but with severe mitral regurgitation, severe tricuspid regurgitation and biatrial enlargement Repeat echocardiogram done last week (08/02/22) revealed normal LV systolic function, moderately increased right ventricular size with reduced? ? systolic function, severe biatrial enlargement, MitraClip in place, with mild mitral regurgitation, mild aortic regurgitation, moderate to severe? tricuspid regurgitation with mildly elevated right atrial pressures with normal RV systolic pressure. No gross pericardial effusion?is seen Follow up with Cardiology as scheduled (3) Mitral regurgitation: Comment: Status post MitraClip Code(s): I34.0 - Nonrheumatic mitral (valve) insufficiency Qualifiers: Cardiac valve disease etiology: nonrheumatic Qualified Code(s): I34.0 - Nonrheumatic mitral (valve) insufficiency Plan: S/P MitraClip procedure at [facility] on 06/16/2020, followed by cardiac rehab, which patient states has helped a lot with her symptoms Follow-up with cardiology as scheduled (4) Hypothyroidism: Code(s): E03.9 - Hypothyroidism, unspecified Qualifiers: Hypothyroidism type: acquired Qualified Code(s): E03.9 - Hypothyroidism, unspecified Plan: Continue Levothyroxine 75 mcg once a day Was seeing endocrinology for follow up but Dr. George recently left her practice; will renew referral later on with Dr. Bingham only if necessary Will recheck her TFTs in 4 months for follow up (5) Pure hypercholesterolemia: Code(s): E78.00 - Pure hypercholesterolemia, unspecified Plan: Results of her labs done last week reviewed and discussed with patient - cautioned that her cholesterol levels have increased from her previous numbers in 2020 Reinforced low cholesterol diet Patient was on Simvastatin in the past but this was discontinued during her hospitalization last year and she prefers NOT to go back on the Rx if possible Will recheck her labs in 4 months for follow-up (6) Chronic kidney disease (CKD), stage III (moderate): Code(s): N18.30 - Chronic kidney disease, stage 3 unspecified Qualifiers: Chronic kidney disease stage 3 subtype: stage 3a (GFR 45-59) Qualified Code(s): N18.31 - Chronic kidney disease, stage 3a Plan: Stable ? Will continue to monitor her renal function regularly (7) Osteoporosis: Code(s): M81.0 - Age-related osteoporosis without current pathological fracture Qualifiers: Osteoporosis type: age-related Presence of current pathological fracture: without current pathological fracture Qualified Code(s): M81.0 - Age- related osteoporosis without current pathological fracture Plan: Repeat BMD back on 01/27/2021 revealed about a 10% decline in her overall BMD from her previous scan in July 2016 Patient was referred to and seen by Endocrinology recently and recommended starting on Prolia but patient decided against taking any Rx due to their potential side effects Continue Caltrate 600+ D tablet chewable, 600-400 mg - unit 1 tablet twice a day Follow-up with endocrinology as schedule: (8) Irritable bowel syndrome (IBS): Code(s): K58.9 - Irritable bowel syndrome without diarrhea Qualifiers: Irritable bowel syndrome type: unspecified Qualified Code(s): K58.9 - Irritable bowel syndrome without diarrhea Plan: Follow up with GI (Dr. Tolliver)? as scheduled Has been taking Align (as recommended by Dr. Tolliver) and states that the medication helps a lot States that Dr. Tolliver recommended no further intervention or procedures -? last colonoscopy in 2008 was normal (9) Alzheimer's disease: Code(s): G30.9 - Alzheimer's disease, unspecified; F02.80 - Dementia in other diseases classified elsewhere, unspecified severity, without behavioral disturbance, psychotic disturbance, mood disturbance, and anxiety Plan: Continue Donepezil 5 mg once a day at bedtime Follow-up with Neurology as scheduled Plan Follow up in 4 months Orders: Orders Complete Blood Count Auto Diff 4 Months I10 - Essential (primary) hypertension Comprehensive [place]. Panel Fast 4 Months E78.00 - Pure hypercholesterolemia, unspecified Lipid Panel 4 Months E78.00 - Pure hypercholesterolemia, unspecified Free T4 (Free Thyroxine) 4 Months E03.9 - Hypothyroidism, unspecified Thyroid Stimulating Hormone 4 Months E03.9 - Hypothyroidism, unspecified Vitamin D 25-OH Total 4 Months E55.9 - Vitamin D deficiency, unspecified UA CC w/rflx Micro + Cult 4 Months R30.0 - Dysuria Medications: Changed From donepezil 10 mg PO DAILY To donepezil 10 mg PO DAILY 90 tabs 3RF 90 days Refilled levothyroxine 75 mcg PO DAILY 90 tabs 3RF 90 days E03.9 - Hypothyroidism, unspecified cholecalciferol (vitamin D3) 25 mcg PO DAILY 90 caps 3RF 90 days M81.0 - Age- related osteoporosis without current pathological fracture Coding Level of Care Code Est Pt Level 4 (35281) Diagnoses Chronic atrial fibrillation I48.20 CHF due to valvular disease I50.9; I38 Mitral regurgitation I34.0 Cardiac valve disease etiology: nonrheumatic Hypothyroidism E03.9 Hypothyroidism type: acquired Pure hypercholesterolemia E78.00 Chronic kidney disease (CKD), stage III (moderate) N18.31 Chronic kidney disease stage 3 subtype: stage 3a (GFR 45-59) Osteoporosis M81.0 Osteoporosis type: age-related Presence of current pathological fracture: without current pathological fracture Irritable bowel syndrome (IBS) K58.9 Irritable bowel syndrome type: unspecified Alzheimer's disease G30.9; F02.80
== END 2022-12-06 10:54 | disposition home or self-care (01) ==
LOC: HO.HMGH 09:33
PROVIDERS: PCP Internal Medicine; Visit Provider Internal Medicine
DX: I48.20 Chronic atrial fibrillation, unspecified (principal); I50.9 Heart failure, unspecified; E03.9 Hypothyroidism, unspecified; N18.31 Chronic kidney disease, stage 3a; I38 Endocarditis, valve unspecified; I34.0 Nonrheumatic mitral (valve) insufficiency; E78.00 Pure hypercholesterolemia, unspecified; M81.0 Age-related osteoporosis without current pathological fracture; K58.9 Irritable bowel syndrome, unspecified; G30.9 Alzheimer's disease, unspecified; F02.80 Dementia in other diseases classified elsewhere, unspecified severity, without behavioral disturbance, psychotic disturbance, mood disturbance, and anxiety
CPT/HCPCS: 99214

== ENCOUNTER → 2022-12-12 09:44 | Outpatient (BNVA) | payer MEDICARE, SELFPAY | PROVIDERS: PCP Internal Medicine; Visit Provider Internal Medicine | DX: I48.20 Chronic atrial fibrillation, unspecified (principal); Z79.01 Long term (current) use of anticoagulants; Z51.81 Encounter for therapeutic drug level monitoring | CPT/HCPCS: 85610; 99211 ==

== ENCOUNTER → 2022-12-26 09:30 | Outpatient (BNVA) | payer MEDICARE, SELFPAY | PROVIDERS: PCP Internal Medicine; Visit Provider Internal Medicine | DX: I48.20 Chronic atrial fibrillation, unspecified (principal); Z79.01 Long term (current) use of anticoagulants; Z51.81 Encounter for therapeutic drug level monitoring | CPT/HCPCS: 85610; 99211 ==

== ENCOUNTER → 2023-01-23 09:27 | Outpatient (BNVA) | payer MEDICARE, SELFPAY | PROVIDERS: PCP Internal Medicine; Visit Provider Internal Medicine | DX: I48.20 Chronic atrial fibrillation, unspecified (principal); Z79.01 Long term (current) use of anticoagulants; Z51.81 Encounter for therapeutic drug level monitoring | CPT/HCPCS: 85610; 99211 ==

== ENCOUNTER → 2023-02-20 09:31 | Outpatient (BNVA) | payer MEDICARE, SELFPAY | PROVIDERS: PCP Internal Medicine; Visit Provider Internal Medicine | DX: I48.20 Chronic atrial fibrillation, unspecified (principal); Z51.81 Encounter for therapeutic drug level monitoring; Z79.01 Long term (current) use of anticoagulants | CPT/HCPCS: 85610; 99211 ==

== ENCOUNTER 2023-03-20 09:24 | Outpatient (AMB) | payer MEDICARE, SELFPAY ==
--- NOTE | 2023-03-20 09:39 | MHC.OFFVISCO ---
Intake Intake Visit Reasons: Anticoagulation Allergies Sulfa (Sulfonamide Antibiotics) [Sulfa (Sulfonamides)] Allergy (Mild, Verified 03/20/23 09:28) RASH ciprofloxacin [Cipro] Allergy (Unknown, Verified 03/20/23 09:28) rash scallops Allergy (Unknown, Verified 03/20/23 09:28) Sick to the stomach Medication List - Last Reconciled 03/20/23 by Duyen Qureshi RN amoxicillin 2,000 mg PO ONCE PRN cholecalciferol (vitamin D3) 25 mcg PO DAILY 90 days donepezil 10 mg PO DAILY 90 days furosemide 20 mg orally One tablet daily except Sunday and Sunday 2 tablets; levothyroxine 75 mcg PO DAILY 90 days metoprolol succinate ER 100 mg PO DAILY 90 days warfarin 2 mg See Protocol PO 4XW 90 days Nursing Note Amb to [facility] accomp by daughter, feeling well Medications and supplements reviewed No changes in health, diet, medications, or supplements Denies any unusual signs and symptoms of bruising, bleeding Denies any new Chest pain, SOB, or clotting INR: 2.9 in therapeutic range, top Nutritional guidance given: ok for a green today then balance greens and reds in diet Dose: continue usual dosing;1mg x 2 days and 2mg x 5 days F/U INR: 4 weeks Patient verbalizes understanding of instructions given with accurate read back/ teach back of dosing Anti-Coag Initial Assessment Social Hx Patient Tobacco Use Status: Never used Tobacco alcohol intake: never Coding Level of Care Code Est Patient Level 1 Diagnoses Current use of anticoagulant therapy Z79.01 Time Spent (min) 15 Results AMB INR Fingerstick AMB INR Fingerstick 2.9 Last Edit by Duyen Qureshi RN on 03/20/23 09:36 interface failure Assessment & Plan Assessment & Plan (1) Current use of anticoagulant therapy: Code(s): Z79.01 - group home (current) use of anticoagulants Category: Medical
[2023-03-20 09:43] LABS: Prothrombin Time Whole Bld POC 34.5 sec (11.1-13.5); ~PT, ~INR - Anti Coag Clinic 2.9 (0.9-1.1)
== END 2023-03-20 09:41 | disposition home or self-care (01) ==
LOC: HO.ACS 09:24
PROVIDERS: PCP Internal Medicine; Visit Provider Internal Medicine
DX: Z79.01 Long term (current) use of anticoagulants (principal)

== ENCOUNTER → 2023-03-20 09:24 | Outpatient (BNVA) | payer MEDICARE, SELFPAY | PROVIDERS: PCP Internal Medicine; Visit Provider Internal Medicine | DX: I48.20 Chronic atrial fibrillation, unspecified (principal); Z51.81 Encounter for therapeutic drug level monitoring; Z79.01 Long term (current) use of anticoagulants | CPT/HCPCS: 85610; 99211 ==

== ENCOUNTER 2023-03-27 09:16 | Outpatient (AMB) | payer MEDICARE, SELFPAY ==
[2023-03-27 09:18] VITALS: BP 120/82; PULSE 61; BMI 15.8
--- NOTE | 2023-03-27 09:18 | MHC.OFFVIS ---
Intake Vital Signs 03/27/23 09:18 Height 5 ft 1 in Weight 83 lb 12.41 oz BMI 15.8 BP 120/82 Blood Pressure Location Lt brachial Position Sitting Pulse 61 Intake Visit Reasons: 6 mth f/ up Intake Note: 6 month follow-up feeling good Compliance Review Officer Required: No Loading Machine Adjuster: Loading Machine Adjuster Present Accompanied by: Daughter Allergies Sulfa (Sulfonamide Antibiotics) [Sulfa (Sulfonamides)] Allergy (Mild, Verified 03/20/23 09:28) RASH ciprofloxacin [Cipro] Allergy (Unknown, Verified 03/20/23 09:28) rash scallops Allergy (Unknown, Verified 03/20/23 09:28) Sick to the stomach Medication List - Last Reconciled 03/27/23 by Mikey Rodriguez MD amoxicillin 2,000 mg PO ONCE PRN cholecalciferol (vitamin D3) 25 mcg PO DAILY 90 days donepezil 10 mg PO DAILY 90 days furosemide 20 mg orally One tablet daily except Sunday and Sunday 2 tablets; levothyroxine 75 mcg PO DAILY 90 days metoprolol succinate ER 100 mg PO DAILY 90 days warfarin 2 mg See Protocol PO 4XW 90 days HPI HPI Comments History of Present Illness Details Sandra comes for follow-up. She has been doing well from cardiac perspective. She has not had any worsening heart failure symptoms. She remains very active at home. Denies orthopnea, abdominal distention, leg edema. Takes a diuretic regimen. Denies any palpitations, lightheadedness, syncope. No bleeding issues or neurologic events. [facility] Medical History Alzheimer's disease Anticoagulated on Coumadin CHF due to valvular disease Chronic atrial fibrillation Chronic kidney disease (CKD), stage III (moderate) Enlarged RV (right ventricle) Hypothyroidism Irritable bowel syndrome (IBS) Mitral regurgitation Osteoporosis Petechial rash Petechial rash Pure hypercholesterolemia Tricuspid regurgitation Surgical History Hx of left mastectomy Hx of tubal ligation No pertinent past surgical history Status post implantation of mitral valve leaflet clip (~06/16/20) Family History Father Hx of blood clots Mother Hx of blood clots Social History Housing: House Alcohol intake: never Patient Tobacco Use Status: Never used Tobacco e-Cigarette/Vaping Use: Never Used Second Hand Smoke Exposure: No service: No Current occupational status: retired Cognitive needs: No Hearing needs: No Vision needs: Yes Review of Systems Const Denies chills, Denies fatigue, Denies fever(s), Denies frequent falls, Denies weakness, Denies weight gain and Denies weight loss ENT Denies dizziness Card Denies chest pain, Denies leg edema, Denies lightheadedness, Denies palpitations, Denies dyspnea, Denies dyspnea on exertion, Denies orthopnea and Denies other (loss of consciousness) Resp Denies cough, Denies dyspnea and Denies dyspnea on exertion GI Denies hematochezia and Denies change in stool character Musc Denies abnormal gait, Denies muscle weakness, Denies numbness, Denies radiating pain into limb and Denies tingling Neuro Denies abnormal gait, Denies dizziness, Denies frequent falls, Denies numbness, Denies tingling and Denies weakness Endo Denies fatigue and Denies palpitations Physical Exam Vital Signs: Last Vital Signs Pulse 61 03/27/23 09:18 BP 120/82 03/27/23 09:18 BMI result Body Mass Index 15.8 Const General: cooperative, comfortable, no acute distress, alert, awake, Physically active and well groomed Nutritional Appearance: thin Orientation/consciousness: patient oriented x3 Limitations: no limitations Neck Neck: Yes trachea midline, Yes supple and Yes no JVD (Prominent V-waves) Resp Effort & Inspection: normal respiratory effort Auscultation: clear to auscultation bilaterally Cardio Jugular venous distension: no JVD Palpation: abnormal PMI displaced PMI and heave (Right ventricular) Rhythm: abnormal rhythm irregularly irregular Heart sounds: S1 normal heart sound present, S2 normal heart sound present, no click and Murmur heart sound present systolic holo and at the right sternal border GI Auscultation: normal bowel sounds Skin General skin exam: no rashes or lesions noted Neuro General: patient oriented x3 and no focal motor deficits Extrem General: No clubbing, No cyanosis and Yes edema (Right greater than left, both lower extremity in compression stocking) Psych Appearance: grossly normal Assessment & Plan Assessment & Plan (1) CHF due to valvular disease: Code(s): I50.9 - Heart failure, unspecified; I38 - Endocarditis, valve unspecified Plan: Patient with prior significant heart failure related to severe mitral regurgitation as well as predominantly right heart failure. Status post MitraClip procedure and since then she has done well with no hospitalization and improve functional status. Heart failure syndrome has been under control but has required chronic diuretic therapy. Continue the same. Management of heart failure was discussed in details. She does have underlying significant tricuspid regurgitation which increase the risk for development of right heart failure in the future. Her at this point time will continue monitor clinically. Advised to call me with worsening symptoms. Daily weight monitoring avoidance of salt loading was discussed additional diuretics was discussed. She understands agrees. Follow-up echocardiogram in 6 months time. (2) Chronic atrial fibrillation: Code(s): I48.20 - Chronic atrial fibrillation, unspecified Plan: Chronic rate control atrial fibrillation. Continue current rate control strategy. Continue full oral anticoagulation with warfarin therapy being followed by Cou[facility] Clinic. Maintain target INR between 2 and 3. (3) Status post implantation of mitral valve leaflet clip: Onset Date: ~06/16/20 Comment: May 2020. Three Aks TR MitraClips were placed for severe mitral regurgitation with reduction mitral regurgitation to mild range. Procedure was done for primary mitral regurgitation secondary to mitral valve prolapse with congestive heart failure. Code(s): Z98.890 - Other specified postprocedural states; Z95.818 - Presence of other cardiac implants and grafts Plan: Status post MitraClip procedure which has done very well for her. Her mitral regurgitation improved. Although she does have short murmur on clinical exam. Follow-up echocardiogram 6 months time. SBE prophylaxis as per [facility] guidelines. Follow up in the clinic in 6 months, sooner p.r.n.. Thank you for allowing me to partake in her care Coding Level of Care Code Est Pt Level 4 (48584) Diagnoses CHF due to valvular disease I50.9; I38 Chronic atrial fibrillation I48.20 Status post implantation of mitral valve leaflet clip Z98.890; Z95.818
== END 2023-03-27 09:36 | disposition home or self-care (01) ==
PROVIDERS: Visit Provider Internal Medicine Cardiovascular Disease
DX: I50.9 Heart failure, unspecified (principal); I38 Endocarditis, valve unspecified; I48.20 Chronic atrial fibrillation, unspecified; Z98.890 Other specified postprocedural states; Z95.818 Presence of other cardiac implants and grafts
CPT/HCPCS: 99214

== ENCOUNTER → 2023-03-27 09:16 | Outpatient (BNVA) | payer MEDICARE, SELFPAY | PROVIDERS: Visit Provider Internal Medicine Cardiovascular Disease | DX: I50.9 Heart failure, unspecified (principal); I38 Endocarditis, valve unspecified; I48.20 Chronic atrial fibrillation, unspecified; Z98.890 Other specified postprocedural states; Z95.818 Presence of other cardiac implants and grafts | CPT/HCPCS: 99212 ==

== ENCOUNTER 2023-03-28 08:42 | Outpatient (AMB) | payer MEDICARE, SELFPAY ==
--- NOTE | 2023-03-28 08:44 | AM.OFFVISMDC ---
Intake Vital Signs 03/28/23 08:45 Height 5 ft 1 in Weight 83 lb BMI 15.7 BP 130/82 Blood Pressure Location Rt brachial Position Sitting Pulse 64 Pulse Source Pulse Oximeter Temp Source Skin Pulse Oximetry (%) 97 Oxygen Delivery Method Room Air Intake Visit Reasons: AWV- G0439 Intake Note: Patient is here for an Annual Wellness Visit. Dam Attendant Required: No Allergies Sulfa (Sulfonamide Antibiotics) [Sulfa (Sulfonamides)] Allergy (Mild, Verified 03/28/23 09:06) RASH ciprofloxacin [Cipro] Allergy (Unknown, Verified 03/28/23 09:06) rash scallops Allergy (Unknown, Verified 03/28/23 09:06) Sick to the stomach Medication List - Last Reconciled 03/28/23 by BALWINDER Singh amoxicillin 2,000 mg PO ONCE PRN cholecalciferol (vitamin D3) 25 mcg PO DAILY 90 days donepezil 10 mg PO DAILY 90 days furosemide 20 mg orally One tablet daily except Sunday and Sunday 2 tablets; levothyroxine 75 mcg PO DAILY 90 days metoprolol succinate ER 100 mg PO DAILY 90 days warfarin 2 mg See Protocol PO 4XW 90 days Fall Risk Assessment Fall risk assessment: No Falls in past year Date Fall Risk Assessed: 03/28/23 HPI AWV- G0439 HPI Details Patient is an 82-year-old female presents today for subsequent wellness visit. Patient of Dr. Proctor. Today patient is accompanied by her daughter who is a healthcare proxy. Today we discussed patient's need for pneumonia vaccine, bone density screen, and mammogram, patient has declined. [place] of care was reviewed with healthcare proxy and the patient and they were provided with a screening schedule.? Patient has a healthcare proxy and MOLST forms on file. [facility] Medical History Alzheimer's disease Anticoagulated on Coumadin CHF due to valvular disease Chronic atrial fibrillation Chronic kidney disease (CKD), stage III (moderate) Enlarged RV (right ventricle) Hypothyroidism Irritable bowel syndrome (IBS) Mitral regurgitation Osteoporosis Petechial rash Petechial rash Pure hypercholesterolemia Tricuspid regurgitation Surgical History Hx of left mastectomy Hx of tubal ligation No pertinent past surgical history Status post implantation of mitral valve leaflet clip (~10/21/20) Family History Father Hx of blood clots Mother Hx of blood clots Social History Housing: House Alcohol intake: never Patient Tobacco Use Status: Never used Tobacco e-Cigarette/Vaping Use: Never Used Second Hand Smoke Exposure: No service: No Current occupational status: retired Cognitive needs: No Hearing needs: No Vision needs: Yes Questionnaire Medicare Wellness Checkup What is your age?: 80 or older What gender do you identify with?: female During the past 4 weeks, how much have you been bothered by emotional problems such as feeling anxious, depressed, irritable, sad or downhearted, and blue?: not at all During the past 4 weeks, has your physical & emotional health limited your social activities with family, friends, neighbors, or groups?: not at all During the past 4 weeks, how much bodily pain have you generally had?: no pain During the past 4 weeks, was someone available to help you if you needed & wanted help?: yes, as much as I wanted During the past 4 weeks, what was the hardest physical activity you could do for at least 2 minutes?: moderate Can you get to places out of walking distance without help? (For eg., can you travel alone on buses, taxis or drive your car?): No Can you go shopping for groceries or clothes without someone's help?: No Can you prepare your own meals?: No Can you do your housework without help?: Yes Because of any health problems, do you need the help of another person with your personal care needs such as eating, bathing, dressing or getting around the house?: No Can you handle your own money without help?: No During the past 4 weeks, how would you rate your health in general?: very good During the past 4 weeks how have things been going for you?: very well; could hardly better Are you having difficulties driving your car?: not applicable, I don't use a car Do you always fasten your seat belt when you are in a car?: yes, usually During past 4 weeks, have you been bothered by the following: never: Sexual problems?, Trouble eating well?, Teeth or denture problems? and Problems using the telephone?, seldom: Falling or dizzy when standing up and sometimes: Tiredness or fatigue? Have you fallen 2 or more times in the past year?: No Are you afraid of falling?: No Are you a smoker?: no During the past 4 weeks, how many drinks of wine, beer, or other alcoholic beverages did you have?: no alcohol at all Do you exercise for about 20 minutes 3 or more times a week?: no, I usually do not exercise this much Have you been given information to help with the following?: yes: Hazards in your house that might hurt you? and yes: Keeping track of your medications? How often do you have trouble taking medicines the way you have been told to take them?: sometimes I take medicine as prescribed How confident are you that you can control & manage most of your health problems?: somewhat confident What is your race?: White Mini Mental State Exam (MMSE) Orientation What is the (year) (season) (date) (day) (month)?: year, season, date and day Score Score: 4 Activity of Daily Living Bathing - sponge bath, tub bath or shower: receives no assistance (gets in/out by self, if usual bathing means Dressing - getting clothes from closets & drawers, including inner/outer garments & fasteners.: gets clothes & gets completely dressed without help Toileting - going to the 'toilet room' for urine/bowel elimination & cleaning self/arranging clothes: goes to toilet room, cleans self, arranges clothes without help Transfer: moves in & out of bed and chair without help (may use support object) Continence: controls urination/bowel movements completely by self Feeding: feeds self without help Total Score: 0 Information obtained from: patient Using telephone: independent Traveling: dependent Shopping: needs assistance Preparing meals: needs assistance Housework: needs assistance Taking medicine: needs assistance Managing money: dependent PHQ-9 Over the last 2 weeks, how often have you been bothered by any of the following problems? 1. Little interest or pleasure in doing things: not at all 2. Feeling down, depressed, or hopeless: not at all 3. Trouble falling or staying asleep, or sleeping too much: not at all 4. Feeling tired or having little energy: several days 5. Poor appetite or overeating: not at all 6. Feeling bad about yourself - or that you are a failure or have let yourself or your family down: several days 7. Trouble concentrating on things, such as reading the newspaper or watching television: not at all 8. Moving or speaking so slowly that other people could have noticed. Or the opposite - being so fidgety or restless that you have been moving around a lot more than usual: not at all 9. Thoughts that you would be better off or of hurting yourself in some way: not at all Total score: 2 Depression Screening Interpretation: Negative 74233 - PHQ-9 Billing: Yes Source: Developed by Drs. Freedom Yung, Radha Herrera, Adi Anand and colleagues, with an educational alejandro from [employer]. ALTON-7 AMB Questionnaire ALTON-7 Date ALTON - 7 assessed: 03/28/23 Feeling nervous, anxious, or on edge: 0 = Not at all Not being able to stop or control worryin = Not at all Worrying too much about different things: 0 = Not at all Trouble relaxin = Not at all Being so restless that it is hard to sit still: 0 = Not at all Becoming easily annoyed or irritable: 0 = Not at all Feeling afraid as if something awful might happen: 0 = Not at all Total ALTON-7 score (0-4 normal; 5-9 mild; 10-14 moderate; 15-21 severe): 0 Source: Developed by Drs. Freedom Yung, Radha Herrera, Adi Anand and colleagues, with an educational alejandro from [employer]. ALTON-7 Assessment Billing ALTON-7 Assessment Tool: ALTON-7 Assessment 72635 AUDIT C Alcohol Use Questionnaire (AUDIT-C) 1. How often do you have a drink containing alcohol?: Never 3. How often do you have six or more drinks on one occasion?: Never Total Score: 0 Score Reviewed/Action Taken: No Thrive Questionnaire Date Thrive assessed: 03/28/23 I am a: Patient What is your living situation today?: I have a steady place to live Within the past 12 months, did the food you bought not last and you didn't have the money to get more?: Never true Within the past 12 months, did you worry whether your food would run out before you got money to buy more?: Never true Currently or been in a relationship where the following occur: no concerns reported Physical Exam Vital Signs: Last Vital Signs Pulse 64 03/28/23 08:45 BP 130/82 03/28/23 08:45 Pulse Ox 97 03/28/23 08:45 Oxygen Delivery Method Room Air 03/28/23 08:45 BMI result Body Mass Index 15.7 Const General: cooperative and no acute distress Orientation/consciousness: oriented to person and oriented to place HEENT Other: Whisper test: pass Neuro Other: Balance: Normal Get up and walk: able to Romberg: negative Tandem gait: unable to General: oriented to person and oriented to place Assessment & Plan Assessment & Plan (1) Encounter for Medicare annual wellness exam: Code(s): Z00.00 - Encounter for general adult medical examination without abnormal findings (2) Anticoagulated on Coumadin: Code(s): Z79.01 - [facility] (current) use of anticoagulants Plan: Continue to follow-up with [facility] (3) Current use of anticoagulant therapy: Code(s): 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 Rodriguez (5) Chronic atrial fibrillation: Code(s): I48.20 - Chronic atrial fibrillation, unspecified Plan: Metoprolol 100 mg daily and Coumadin Continue to follow-up with cardiology Dr. Rodriguez (6) Hypothyroidism: Code(s): E03.9 - Hypothyroidism, unspecified Qualifiers: Hypothyroidism type: acquired Qualified Code(s): E03.9 - Hypothyroidism, unspecified Plan: Levothyroxine 75 mcg daily (7) Pure hypercholesterolemia: Code(s): E78.00 - Pure hypercholesterolemia, unspecified Plan: Low-cholesterol diet (8) Chronic kidney disease (CKD), stage III (moderate): Code(s): N18.30 - Chronic kidney disease, stage 3 unspecified Qualifiers: Chronic kidney disease stage 3 subtype: stage 3a (GFR 45-59) Qualified Code(s): N18.31 - Chronic kidney disease, stage 3a Plan: Stable, will continue to monitor (9) Osteoporosis: Code(s): M81.0 - Age-related osteoporosis without current pathological fracture Qualifiers: Osteoporosis type: age-related Presence of current pathological fracture: without current pathological fracture Qualified Code(s): M81.0 - Age-related osteoporosis without current pathological fracture Plan: Patient is on vitamin-D Patient has declined bone density screening (10) Alzheimer's disease: Code(s): G30.9 - Alzheimer's disease, unspecified; F02.80 - Dementia in other diseases classified elsewhere, unspecified severity, without behavioral disturbance, psychotic disturbance, mood disturbance, and anxiety Plan: Donepezil 10 mg daily Continue to follow-up with neurology Dr. Catalan Quality Reporting (2019) Fall Risk Screening ([facility] 139) Last assessed Fall Risk: 03/28/23 Fall risk assessment: No Falls in past year Depression/Bipolar (159/160/161/177) PHQ-9: Total score: 2 Coding Level of Care Code Medicare Subsequent (G0439) Diagnoses Encounter for Medicare annual wellness exam Z00.00 Anticoagulated on Coumadin Z79.01 Current use of anticoagulant therapy Z79.01 CHF due to valvular disease I50.9; I38 Chronic atrial fibrillation I48.20 Hypothyroidism E03.9 Hypothyroidism type: acquired Pure hypercholesterolemia E78.00 Chronic kidney disease (CKD), stage III (moderate) N18.31 Chronic kidney disease stage 3 subtype: stage 3a (GFR 45-59) Osteoporosis M81.0 Osteoporosis type: age-related Presence of current pathological fracture: without current pathological fracture Alzheimer's disease G30.9; F02.80 CPT Codes Advance Care Planning - Advance Care Planning discussion: On file, no changes ([id number]) Advance Care Planning - Time spent: 1-15 minutes, on File ([id number]) Additional Codes ALTON-7 Assessment Billing - ALTON-7 Assessment Tool: ALTON-7 Assessment [id number] ([id number]) Advance Care Planning Advance Care Planning discussion: On file, no changes Date of discussion: 03/28/23 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
[2023-03-28 08:45] VITALS: BP 130/82; PULSE 64; O2SAT 97; BMI 15.7
== END 2023-03-28 09:22 | disposition home or self-care (01) ==
PROVIDERS: PCP Internal Medicine; Visit Provider Nurse Practitioner Family
DX: Z00.00 Encounter for general adult medical examination without abnormal findings (principal); Z79.01 Long term (current) use of anticoagulants; I50.9 Heart failure, unspecified; I38 Endocarditis, valve unspecified; I48.20 Chronic atrial fibrillation, unspecified; E03.9 Hypothyroidism, unspecified; E78.00 Pure hypercholesterolemia, unspecified; N18.31 Chronic kidney disease, stage 3a; M81.0 Age-related osteoporosis without current pathological fracture; G30.9 Alzheimer's disease, unspecified; F02.80 Dementia in other diseases classified elsewhere, unspecified severity, without behavioral disturbance, psychotic disturbance, mood disturbance, and anxiety
CPT/HCPCS: 1123F; G0439

== ENCOUNTER 2023-04-02 08:46 | Outpatient (REF) | payer MEDICARE, SELFPAY ==
[2023-04-02 11:30] LABS: MANUAL DIFF FLAG NO
[2023-04-02 11:50] LABS: Basophils Percent Auto 0.5 % (0-2); Eosinophils Absolute Auto 0.1 X10*3/uL (0.0-0.4); Eosinophils Percent Auto 1.8 % (0-4); Hematocrit 44.7 % (37.0-47.0); Hemoglobin 14.4 g/dl (12.0-16.0); Imm Gran Abs Auto 0.02 X10*3/uL (0.00-0.03); Imm Gran Pct Auto 0.5 % (0.0-0.4); Lymphocytes Percent Auto 22.4 % (20-40); Mean Corpuscular HGB Conc 32.2 g/dl (31.0-35.0); Mean Corpuscular Hemoglobin 31.9 pg (27.0-33.0); Mean Corpuscular Volume 98.9 fL (80.0-98.0); Mean Platelet Volume 9.4 fL (9.4-12.3); Monocytes Absolute Auto 0.5 X10*3/uL (0.1-1.2); Monocytes Percent Auto 11.4 % (2-11); Neutrophils Absolute Auto 2.8 x10*3/uL (2.0-8.3); Neutrophils Percent Auto 63.4 % (45-73); Platelet Count 190 X10*3/uL (160-400); Red Blood Count 4.52 X10*6/uL (4.20-5.50); Red Cell Distribution Width 13.7 % (11.0-16.0); White Blood Count 4.4 X10*3/uL (4.8-10.8)
[2023-04-02 12:44] LABS: Alanine Aminotransferase 21 U/L (0-31); Alkaline Phosphatase 114 U/L (39-117); Anion Gap 17 (12-20); Aspartate Amino Transferase 36 U/L (5-31); Bilirubin Total 1.1 mg/dL (0.0-1.0); Blood Urea Nitrogen 39 mg/dL (9-16); Calcium 9.4 mg/dL (8.4-10.2); Carbon Dioxide 26 mmol/L (22-29); Chloride 102 mmol/L (96-108); Cholesterol 203 mg/dL; Estimated Glomerular Filt Rate 42; Glucose Fasting 102 mg/dL (60-99); HDL Cholesterol 56 mg/dL; LDL Cholesterol Calculated 130 mg/dl; Potassium 4.5 mmol/L (3.3-5.1); Sodium 140 mmol/L (135-145); Total Protein 7.2 g/dL (6.5-8.0); Triglycerides 89 mg/dL
[2023-04-02 12:48] LABS: Free T4 (Free Thyroxine) 1.54 ng/dL (0.71-1.85); Thyroid Stimulating Hormone 0.32 uIU/mL (0.32-4.0); Vitamin D 25-OH Total 69.9 ng/mL (>30)
== END 2023-04-02 08:47 | disposition home or self-care (01) ==
LOC: HO.HMGCLDS 08:46
PROVIDERS: PCP Internal Medicine; Visit Provider Internal Medicine
DX: E03.9 Hypothyroidism, unspecified (principal); I10 Essential (primary) hypertension; E55.9 Vitamin D deficiency, unspecified; E78.00 Pure hypercholesterolemia, unspecified
CPT/HCPCS: 36415; 80053; 80061; 82306; 84439; 84443; 85025

== ENCOUNTER 2023-04-03 08:00 | Outpatient (REF) | payer MEDICARE, SELFPAY ==
[2023-04-03 11:38] LABS: Appearance Urine Cloudy; Color Urine Dark Yellow; Glucose Urine UA Negative (Negative); Leukocyte Esterase Urine Moderate (2+) (Negative); Nitrite Urine Positive (Negative); PH 6.5 (5.0-9.0); UMIC TRIGGER UACC YES; Urine Blood Moderate (2+) (Negative); Urine Ketones Negative (Negative); Urine Protein 100 (2+) mg/dL (Neg-Trace)
[2023-04-03 11:41] LABS: Bacteria Urine 4+ (None Seen); Hyaline Casts Urine 0-2 /LPF (0-2); UACC Culture Trigger YES; WBC Urine >50 /HPF (0-5)
== END 2023-04-03 08:01 | disposition home or self-care (01) ==
LOC: HO.HMGCLNP 08:00
PROVIDERS: PCP Internal Medicine; Visit Provider Internal Medicine
DX: R30.0 Dysuria (principal)
CPT/HCPCS: 81001; 87086; 87088; 87186

== ENCOUNTER 2023-04-09 13:19 | Outpatient (AMB) | payer MEDICARE, SELFPAY ==
[2023-04-09 13:39] VITALS: BP 116/80; BMI 15.7
--- NOTE | 2023-04-09 13:39 | MHC.PC.OV ---
Vital Signs 04/09/23 13:39 Height 5 ft 1 in Weight 83 lb 4 oz BMI 15.7 BP 116/80 Blood Pressure Location Lt brachial Position Sitting Pulse Source Pulse Oximeter Oxygen Delivery Method Room Air Intake Visit Reasons: [facility] f/u Assessment Technician Required: No Accompanied by: Self / Same As Patient Allergies Sulfa (Sulfonamide Antibiotics) [Sulfa (Sulfonamides)] Allergy (Mild, Verified 04/09/23 13:54) RASH ciprofloxacin [Cipro] Allergy (Unknown, Verified 04/09/23 13:54) rash scallops Allergy (Unknown, Verified 04/09/23 13:54) Sick to the stomach Medication List - Last Reconciled 04/09/23 by Darrian Proctor MD amoxicillin 2,000 mg PO ONCE PRN cholecalciferol (vitamin D3) 25 mcg PO DAILY 90 days donepezil 10 mg PO DAILY 90 days furosemide 20 mg orally One tablet daily except Sunday and Sunday 2 tablets; levothyroxine 75 mcg PO DAILY 90 days metoprolol succinate ER 100 mg PO DAILY 90 days warfarin 2 mg See Protocol PO 4XW 90 days Tobacco use date assessed: 04/09/23 Fall risk assessment: No Falls in past year Last assessed Fall Risk: 04/09/23 Dental Screening Dental Screen Date: 04/09/23 Did you have a dental visit in the last 12 months?: Yes Did you have a dental problem in the last 6 months where you did not have access to dental care?: No Was dental information given to patient?: Patient has dentist [facility] HPI Details Patient comes in today for her follow up visit States that she feels okay She denies any headaches or dizziness Denies any chest pains, no SOB No nausea/vomiting, no abdominal pain No change in bowel habits noted Needs her Metoprolol Rx refilled Had her follow up labs done last week - to discuss her results [facility] Medical History Alzheimer's disease Anticoagulated on Coumadin CHF due to valvular disease Chronic atrial fibrillation Chronic kidney disease (CKD), stage III (moderate) Enlarged RV (right ventricle) Hypothyroidism Irritable bowel syndrome (IBS) Mitral regurgitation Osteoporosis Petechial rash Petechial rash Pure hypercholesterolemia Tricuspid regurgitation Surgical History Hx of left mastectomy Hx of tubal ligation No pertinent past surgical history Status post implantation of mitral valve leaflet clip (~06/16/20) Family History Father Hx of blood clots Mother Hx of blood clots Social History Housing: House Alcohol intake: never Patient Tobacco Use Status: Never used Tobacco e-Cigarette/Vaping Use: Never Used Second Hand Smoke Exposure: No service: No Current occupational status: retired Cognitive needs: No Hearing needs: No Vision needs: Yes Questionnaire PHQ-9 Over the last 2 weeks, how often have you been bothered by any of the following problems? 1. Little interest or pleasure in doing things: not at all 2. Feeling down, depressed, or hopeless: not at all 3. Trouble falling or staying asleep, or sleeping too much: not at all 4. Feeling tired or having little energy: several days 5. Poor appetite or overeating: not at all 6. Feeling bad about yourself - or that you are a failure or have let yourself or your family down: several days 7. Trouble concentrating on things, such as reading the newspaper or watching television: not at all 8. Moving or speaking so slowly that other people could have noticed. Or the opposite - being so fidgety or restless that you have been moving around a lot more than usual: not at all 9. Thoughts that you would be better off or of hurting yourself in some way: not at all Total score: 2 Depression Screening Interpretation: Negative 53328 - PHQ-9 Billing: Yes Source: Developed by Drs. Freedom Yung, Radha Herrera, Adi Anand and colleagues, with an educational alejandro from [employer]. Thrive Questionnaire Date Thrive assessed: 04/09/23 I am a: Patient What is your living situation today?: I have a steady place to live Within the past 12 months, did the food you bought not last and you didn't have the money to get more?: Never true Within the past 12 months, did you worry whether your food would run out before you got money to buy more?: Never true Do you have trouble paying for medicines?: No Do you have trouble getting transportation to medical appointments?: No Do you have trouble paying your heating and electricity bill?: No Do you have trouble taking care of your child, family member or friend?: No Do you have trouble with day-to-day activities such as bathing, preparing meals, shopping, managing finances, etc.?: No Are you currently unemployed and looking for a job?: No Are you interested in more education?: No Please select the resources that you would like help with: None Currently or been in a relationship where the following occur: no concerns reported AUDIT C Alcohol Use Questionnaire (AUDIT-C) 1. How often do you have a drink containing alcohol?: Never 3. How often do you have six or more drinks on one occasion?: Never Total Score: 0 Score Reviewed/Action Taken: Yes ALTON-7 AMB Questionnaire ALTON-7 Date ALTON - 7 assessed: 04/09/23 Feeling nervous, anxious, or on edge: 0 = Not at all Not being able to stop or control worryin = Not at all Worrying too much about different things: 0 = Not at all Trouble relaxin = Not at all Being so restless that it is hard to sit still: 0 = Not at all Becoming easily annoyed or irritable: 0 = Not at all Feeling afraid as if something awful might happen: 0 = Not at all Total ALTON-7 score (0-4 normal; 5-9 mild; 10-14 moderate; 15-21 severe): 0 Source: Developed by Drs. Freedom Yung, Radha Herrera, Adi Anand and colleagues, with an educational alejandro from [employer]. ALTON-7 Assessment Billing ALTON-7 Assessment Tool: ALTON-7 Assessment 12517 Review of Systems Const Denies anorexia (daughter states that patient has been eating better lately), Denies difficulty sleeping, Denies fatigue, Denies fever(s) and Denies headache(s) ENT Denies dysphagia, Denies dizziness, Denies otalgia, Denies headache(s), Denies neck pain, Denies odynophagia and Denies sore throat Card Denies chest pain, Denies palpitations and Denies dyspnea Resp Denies cough, Denies dyspnea and Denies wheezing GI Denies abdominal pain, Denies constipation, Denies dysphagia, Denies heartburn, Denies diarrhea, Denies nausea, Denies odynophagia and Denies vomiting Denies difficulty voiding, Denies nocturia, Denies dysuria and Denies urinary urgency Musc Denies neck pain Neuro Denies confusion, Denies dizziness, Denies headache(s) and Reports memory loss (stable) Psych Denies confusion and Reports memory loss (stable) Endo Denies fatigue and Denies palpitations Aller/Immun Denies wheezing Physical exam (Primary Care) Vital Signs: Last Vital Signs BP 116/80 04/09/23 13:39 Oxygen Delivery Method Room Air 04/09/23 13:39 BMI result Body Mass Index 15.7 Tobacco/Smoking Status: Tobacco use Status Tobacco use date assessed 04/09/23 04/09/23 13:47 Patient Tobacco Use Status Never used Tobacco 04/09/23 13:47 e-Cigarette/Vaping Use Never Used 04/09/23 13:47 PHQ-9: PHQ-9 Score PHQ-9: Total score 2 04/09/23 13:47 Depression Screening Interpretation: Negative Thrive Assessment: Date of Thrive Assessment Date Thrive assessed 04/09/23 04/09/23 13:47 Currently or been in a relationship where the following occur: no concerns reported Const General: No confusion Orientation/consciousness: No confusion HENMT Ears: TM's normal bilaterally and EAC's normal Throat: Yes posterior oropharynx normal and Yes tonsils normal (no TP congestion noted) Neck Neck: Yes no lymphadenopathy and Yes supple Resp Auscultation: clear to auscultation bilaterally, no rales and no wheezes Cardio Rate: regular rate Rhythm: abnormal rhythm irregularly irregular Heart sounds: Murmur heart sound present systolic III/, at the apex and at the left sternal border GI Palpation (GI): Soft to palpation and nontender Auscultation: normal bowel sounds Neuro General: No confusion Extrem General: Yes no clubbing, cyanosis or edema Results Reviewed Results Reviewed: Laboratory Tests 04/02/23 04/02/23 04/03/23 09:02 09:02 08:00 WBC 4.4 L Hgb 14.4 Hct 44.7 Plt Count 190 Sodium 140 Potassium 4.5 Creatinine 1.23 Estimated GFR 42 Fasting Glucose 102 H Calcium 9.4 AST 36 H ALT 21 Triglycerides 89 Cholesterol 203 LDL Cholesterol, Calc 130 HDL Cholesterol 56 25-OH Vitamin D Total 69.9 TSH 0.32 Free T4 1.54 Ur Specific [place] 1.020 Urine Protein 100 (2+) H Urine Glucose (UA) Negative Urine Blood Moderate (2+) H Assessment and Plan Assessment & Plan (1) Chronic atrial fibrillation: Code(s): I48.20 - Chronic atrial fibrillation, unspecified Plan: Patient remains rate-controlled on Metoprolol ER 100 mg QD - Rx refilled Continue long-term anticoagulation with Coumadin - patient continues to follow-up with [facility] for PT/ INR monitoring regularly (2) CHF due to valvular disease: Code(s): I50.9 - Heart failure, unspecified; I38 - Endocarditis, valve unspecified Plan: Symptoms have improved a lot since her MitraClip procedure a few years ago in May 2020 Echocardiogram done a couple of years ago (prior to her MitraClip procedure) showed ejection fraction to be between 60-65% but with severe mitral regurgitation, severe tricuspid regurgitation and biatrial enlargement Repeat echocardiogram on 08/02/22 revealed normal LV systolic function, moderately increased right ventricular size with reduced? systolic function, severe biatrial enlargement, MitraClip in place, with mild mitral regurgitation, mild aortic regurgitation, moderate to severe? tricuspid regurgitation with mildly elevated right atrial pressures with normal RV systolic pressure. No gross pericardial effusion?is seen Reinforced fluid restriction Continue Furosemide 40 mg alternating with 20 mg Q AM Follow up with Cardiology as scheduled (3) Mitral regurgitation: Comment: Status post MitraClip Code(s): I34.0 - Nonrheumatic mitral (valve) insufficiency Qualifiers: Cardiac valve disease etiology: nonrheumatic Qualified Code(s): I34.0 - Nonrheumatic mitral (valve) insufficiency Plan: S/P MitraClip procedure at [facility] on 06/16/2020, followed by cardiac rehab, which patient states has helped a lot with her symptoms Follow-up with cardiology as scheduled (4) Hypothyroidism: Code(s): E03.9 - Hypothyroidism, unspecified Qualifiers: Hypothyroidism type: acquired Qualified Code(s): E03.9 - Hypothyroidism, unspecified Plan: TFTs were normal on her labs done last week Continue Levothyroxine 75 mcg QD Was seeing endocrinology for follow up but Dr. George left the practice a couple of years ago; will renew referral to endocrinology only if necessary Will recheck her TFTs in 4 months for follow up (5) Pure hypercholesterolemia: Code(s): E78.00 - Pure hypercholesterolemia, unspecified Plan: Results of her labs done last week reviewed and discussed with patient and her daughter - patient's cholesterol levels have improved slightly from previous Reinforced to continue on low cholesterol diet Patient was on Simvastatin in the past but this was discontinued during her hospitalization last year and she prefers not to go back on it if possible Will recheck her labs in 4 months for follow-up (6) Chronic kidney disease (CKD), stage III (moderate): Code(s): N18.30 - Chronic kidney disease, stage 3 unspecified Qualifiers: Chronic kidney disease stage 3 subtype: stage 3a (GFR 45-59) Qualified Code(s): N18.31 - Chronic kidney disease, stage 3a Plan: Stable -? will continue to monitor renal function regularly (7) Osteoporosis: Code(s): M81.0 - Age-related osteoporosis without current pathological fracture Qualifiers: Osteoporosis type: age-related Presence of current pathological fracture: without current pathological fracture Qualified Code(s): M81.0 - Age-related osteoporosis without current pathological fracture Plan: Repeat BMD back on 01/27/2021 revealed about a 10% decline in her overall BMD from her previous scan in July 2016 Patient was referred to and seen by Endocrinology recently and recommended starting on Prolia but patient decided against taking any Rx due to their potential side effects Continue Caltrate 600+ D tablet chewable, 600-400 mg - unit 1 tablet BID Follow-up with endocrinology as scheduled (8) Irritable bowel syndrome (IBS): Code(s): K58.9 - Irritable bowel syndrome without diarrhea Qualifiers: Irritable bowel syndrome type: unspecified Qualified Code(s): K58.9 - Irritable bowel syndrome without diarrhea Plan: Follow up with GI (Dr. Tolliver)? as scheduled Has been taking Align (as recommended by Dr. Tolliver) and states that this has helped a lot States that Dr. Tolliver recommended no further intervention or procedures -? last colonoscopy in 2008 was normal (9) Alzheimer's disease: Code(s): G30.9 - Alzheimer's disease, unspecified; F02.80 - Dementia in other diseases classified elsewhere, unspecified severity, without behavioral disturbance, psychotic disturbance, mood disturbance, and anxiety Plan: Continue Donepezil 5 mg Q HS Follow-up with Neurology as scheduled (10) Bacteriuria: Code(s): R82.71 - Bacteriuria Plan: Patient's recent urine culture grew (+) Klebsiella Patient states that she has NO acute urinary symptoms at all - denies dysuria, urinary frequency or urgency or nocturia Advised to increase her oral fluid intake but as she currently has no acute symptoms, will NOT treat with antibiotics Patient is advised to call [facility] if she should start experiencing any acute urinary symptoms Plan Follow up in 4 months Orders: Orders Comprehensive [place]. Panel Fast 4 Months E78.00 - Pure hypercholesterolemia, unspecified Lipid Panel 4 Months E78.00 - Pure hypercholesterolemia, unspecified Complete Blood Count Auto Diff 4 Months I10 - Essential (primary) hypertension Vitamin D 25-OH Total 4 Months E55.9 - Vitamin D deficiency, unspecified Vitamin B12 and Folate 4 Months E53.8 - Deficiency of other specified B group vitamins Free T4 (Free Thyroxine) 4 Months E03.9 - Hypothyroidism, unspecified UA CC w/rflx Micro + Cult 4 Months R30.0 - Dysuria Thyroid Stimulating Hormone 4 Months E03.9 - Hypothyroidism, unspecified Medications: Refilled metoprolol succinate ER 100 mg PO DAILY 90 days 90 tabs 3RF I48.20 - Chronic atrial fibrillation, unspecified Coding Level of Care Code Est Pt Level 4 (38748) Diagnoses Chronic atrial fibrillation I48.20 CHF due to valvular disease I50.9; I38 Mitral regurgitation I34.0 Cardiac valve disease etiology: nonrheumatic Hypothyroidism E03.9 Hypothyroidism type: acquired Pure hypercholesterolemia E78.00 Chronic kidney disease (CKD), stage III (moderate) N18.31 Chronic kidney disease stage 3 subtype: stage 3a (GFR 45-59) Osteoporosis M81.0 Osteoporosis type: age-related Presence of current pathological fracture: without current pathological fracture Irritable bowel syndrome (IBS) K58.9 Irritable bowel syndrome type: unspecified Alzheimer's disease G30.9; F02.80 Bacteriuria R82.71 Additional Codes ALTON-7 Assessment Billing - ALTON-7 Assessment Tool: ALTON-7 Assessment 23409 ([id number])
== END 2023-04-09 14:08 | disposition home or self-care (01) ==
PROVIDERS: PCP Internal Medicine; Visit Provider Internal Medicine
DX: E03.9 Hypothyroidism, unspecified (principal); I48.20 Chronic atrial fibrillation, unspecified; I50.9 Heart failure, unspecified; N18.31 Chronic kidney disease, stage 3a; I38 Endocarditis, valve unspecified; I34.0 Nonrheumatic mitral (valve) insufficiency; E78.00 Pure hypercholesterolemia, unspecified; M81.0 Age-related osteoporosis without current pathological fracture; K58.9 Irritable bowel syndrome, unspecified; G30.9 Alzheimer's disease, unspecified; F02.80 Dementia in other diseases classified elsewhere, unspecified severity, without behavioral disturbance, psychotic disturbance, mood disturbance, and anxiety; R82.71 Bacteriuria
CPT/HCPCS: 99214

== ENCOUNTER 2023-04-17 09:04 | Outpatient (AMB) | payer SELFPAY ==
[2023-04-17 09:32] LABS: Prothrombin Time Whole Bld POC 34.7 sec (11.1-13.5); ~PT, ~INR - Anti Coag Clinic 2.9 (0.9-1.1)
--- NOTE | 2023-04-17 09:35 | MHC.OFFVISCO ---
Intake Intake Visit Reasons: Anticoagulation Allergies Sulfa (Sulfonamide Antibiotics) [Sulfa (Sulfonamides)] Allergy (Mild, Verified 04/17/23 09:28) RASH ciprofloxacin [Cipro] Allergy (Unknown, Verified 04/17/23 09:28) rash scallops Allergy (Unknown, Verified 04/17/23 09:28) Sick to the stomach Medication List - Last Reconciled 04/17/23 by Sherlyn Alvarez RN amoxicillin 2,000 mg PO ONCE PRN cholecalciferol (vitamin D3) 25 mcg PO DAILY 90 days donepezil 10 mg PO DAILY 90 days furosemide 20 mg orally One tablet daily except Sunday and Sunday 2 tablets; levothyroxine 75 mcg PO DAILY 90 days metoprolol succinate ER 100 mg PO DAILY 90 days warfarin 2 mg See Protocol PO 4XW 90 days Anti-Coag Initial Assessment Social Hx Patient Tobacco Use Status: Never used Tobacco alcohol intake: never Coding Diagnoses Current use of anticoagulant therapy Z79.01 Assessment & Plan Assessment & Plan (1) Current use of anticoagulant therapy: Code(s): 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
--- NOTE | 2023-04-17 09:35 | MHC.OFFVISCO ---
Intake Intake Visit Reasons: Anticoagulation Allergies Sulfa (Sulfonamide Antibiotics) [Sulfa (Sulfonamides)] Allergy (Mild, Verified 04/17/23 09:28) RASH ciprofloxacin [Cipro] Allergy (Unknown, Verified 04/17/23 09:28) rash scallops Allergy (Unknown, Verified 04/17/23 09:28) Sick to the stomach Medication List - Last Reconciled 04/17/23 by Sherlyn Alvarez RN amoxicillin 2,000 mg PO ONCE PRN cholecalciferol (vitamin D3) 25 mcg PO DAILY 90 days donepezil 10 mg PO DAILY 90 days furosemide 20 mg orally One tablet daily except Sunday and Sunday 2 tablets; levothyroxine 75 mcg PO DAILY 90 days metoprolol succinate ER 100 mg PO DAILY 90 days warfarin 2 mg See Protocol PO 4XW 90 days Nursing Note NO CP,SOB,DIET/MED CHANGES,FALLS OR SX OF BLEEDING. CONTINUE PRESENT DOSE AND FOLLOW-UP IN 4 WEEKS. GOOD UNDERSTANDING OF DOSING INSTR. 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
== END 2023-04-17 09:37 | disposition home or self-care (01) ==
LOC: HO.ACS 09:04
PROVIDERS: PCP Internal Medicine; Visit Provider Internal Medicine
DX: Z79.01 Long term (current) use of anticoagulants (principal)

== ENCOUNTER → 2023-04-17 09:04 | Outpatient (BNVA) | payer SELFPAY | PROVIDERS: PCP Internal Medicine; Visit Provider Internal Medicine | DX: I48.20 Chronic atrial fibrillation, unspecified (principal); Z51.81 Encounter for therapeutic drug level monitoring; Z79.01 Long term (current) use of anticoagulants | CPT/HCPCS: 85610; 99211 ==

== ENCOUNTER 2023-05-15 09:46 | Outpatient (AMB) | payer MEDICARE, SELFPAY ==
[2023-05-15 09:58] LABS: Prothrombin Time Whole Bld POC 34.6 sec (11.1-13.5); ~PT, ~INR - Anti Coag Clinic 2.9 (0.9-1.1)
--- NOTE | 2023-05-15 10:03 | MHC.OFFVISCO ---
Intake Intake Visit Reasons: Anticoagulation Allergies Sulfa (Sulfonamide Antibiotics) [Sulfa (Sulfonamides)] Allergy (Mild, Verified 05/15/23 09:51) RASH ciprofloxacin [Cipro] Allergy (Unknown, Verified 05/15/23 09:51) rash scallops Allergy (Unknown, Verified 05/15/23 09:51) Sick to the stomach Medication List - Last Reconciled 05/15/23 by Lorena Tobin RN amoxicillin 2,000 mg PO ONCE PRN cholecalciferol (vitamin D3) 25 mcg PO DAILY 90 days donepezil 10 mg PO DAILY 90 days furosemide 20 mg orally One tablet daily except Sunday and Sunday 2 tablets; levothyroxine 75 mcg PO DAILY 90 days metoprolol succinate ER 100 mg PO DAILY 90 days warfarin 2 mg See Protocol PO 4XW 90 days Nursing Note INR: 2.9 in therapeutic range Medications and supplements reviewed No changes in health, diet, medications, or supplements, pt states i feel good and I dont feel 83 Denies any signs and symptoms of bleeding or bruising or clotting. 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
== END 2023-05-15 10:06 | disposition home or self-care (01) ==
LOC: HO.ACS 09:46
PROVIDERS: PCP Internal Medicine; Visit Provider Internal Medicine
DX: Z79.01 Long term (current) use of anticoagulants (principal)

== ENCOUNTER → 2023-05-15 09:46 | Outpatient (BNVA) | payer MEDICARE, SELFPAY | PROVIDERS: PCP Internal Medicine; Visit Provider Internal Medicine | DX: I48.20 Chronic atrial fibrillation, unspecified (principal); Z79.01 Long term (current) use of anticoagulants; Z51.81 Encounter for therapeutic drug level monitoring | CPT/HCPCS: 85610; 99211 ==

== ENCOUNTER 2023-06-15 09:32 | Outpatient (AMB) | payer MEDICARE, SELFPAY ==
--- NOTE | 2023-06-15 09:53 | MHC.OFFVISCO ---
Intake Intake Visit Reasons: Anticoagulation Allergies Sulfa (Sulfonamide Antibiotics) [Sulfa (Sulfonamides)] Allergy (Mild, Verified 06/15/23 09:40) RASH ciprofloxacin [Cipro] Allergy (Unknown, Verified 06/15/23 09:40) rash scallops Allergy (Unknown, Verified 06/15/23 09:40) Sick to the stomach Medication List - Last Reconciled 06/15/23 by Lorena Tobin RN amoxicillin 2,000 mg PO ONCE PRN cholecalciferol (vitamin D3) 25 mcg PO DAILY 90 days donepezil 10 mg PO DAILY 90 days furosemide 20 mg orally One tablet daily except Sunday and Sunday 2 tablets; levothyroxine 75 mcg PO DAILY 90 days metoprolol succinate ER 100 mg PO DAILY 90 days warfarin 2 mg See Protocol PO 4XW 90 days Nursing Note INR: 3.3 just out of rang Medications and supplements reviewed- no changes s/p covid and flu vaccine 2 weeks ago, daughter had covid last week, pt feels fine Denies any signs and symptoms of bleeding or bruising or clotting. Bleeding, bruising, clotting discussed Nutritional guidance given - cooked greens weekly Dose: decrease dose today to 1 mg then resume usual dose 1mg sun sat/ 2mg x 5 days F/U INR: 1 month Patient verbalizes understanding of instructions given Anti-Coag Initial Assessment Social Hx Patient Tobacco Use Status: Never used Tobacco alcohol intake: never Coding Level of Care Code Est Patient Level 1 Diagnoses Current use of anticoagulant therapy Z79.01 Results AMB INR Fingerstick AMB INR Fingerstick 3.3 Last Edit by Lorena Tobin RN on 06/15/23 09:47 manual entry Assessment & Plan Assessment & Plan (1) Current use of anticoagulant therapy: Code(s): 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
[2023-06-15 09:54] LABS: Prothrombin Time Whole Bld POC 39.7 sec (11.1-13.5); ~PT, ~INR - Anti Coag Clinic 3.3 (0.9-1.1)
== END 2023-06-15 09:57 | disposition home or self-care (01) ==
LOC: HO.ACS 09:32
PROVIDERS: PCP Internal Medicine; Visit Provider Internal Medicine
DX: Z79.01 Long term (current) use of anticoagulants (principal)

== ENCOUNTER → 2023-06-15 09:32 | Outpatient (BNVA) | payer MEDICARE, SELFPAY | PROVIDERS: PCP Internal Medicine; Visit Provider Internal Medicine | DX: I48.20 Chronic atrial fibrillation, unspecified (principal); Z51.81 Encounter for therapeutic drug level monitoring; Z79.01 Long term (current) use of anticoagulants | CPT/HCPCS: 85610; 99211 ==

== ENCOUNTER → 2023-07-17 09:45 | Outpatient (BNVA) | payer MEDICARE, SELFPAY | PROVIDERS: PCP Internal Medicine; Visit Provider Internal Medicine | DX: I48.20 Chronic atrial fibrillation, unspecified (principal); Z79.01 Long term (current) use of anticoagulants; Z51.81 Encounter for therapeutic drug level monitoring | CPT/HCPCS: 85610; 99211 ==

== ENCOUNTER 2023-07-31 09:24 | Outpatient (REF) | payer MEDICARE, SELFPAY ==
[2023-07-31 10:29] LABS: MANUAL DIFF FLAG NO
[2023-07-31 10:49] LABS: Basophils Percent Auto 0.5 % (0-2); Eosinophils Absolute Auto 0.3 X10*3/uL (0.0-0.4); Hematocrit 43.7 % (37.0-47.0); Imm Gran Abs Auto 0.02 X10*3/uL (0.00-0.03); Imm Gran Pct Auto 0.3 % (0.0-0.4); Lymphocytes Absolute Auto 0.8 X10*3/uL (1.2-4.9); Lymphocytes Percent Auto 13.9 % (20-40); Mean Corpuscular Hemoglobin 31.7 pg (27.0-33.0); Mean Corpuscular Volume 98.9 fL (80.0-98.0); Mean Platelet Volume 9.2 fL (9.4-12.3); Monocytes Absolute Auto 0.7 X10*3/uL (0.1-1.2); Monocytes Percent Auto 11.6 % (2-11); Neutrophils Absolute Auto 4.1 x10*3/uL (2.0-8.3); Neutrophils Percent Auto 68.7 % (45-73); Platelet Count 272 X10*3/uL (160-400); Red Blood Count 4.42 X10*6/uL (4.20-5.50); Red Cell Distribution Width 13.5 % (11.0-16.0)
[2023-07-31 10:51] LABS: Appearance Urine Cloudy; Color Urine Yellow; Glucose Urine UA Negative (Negative); Leukocyte Esterase Urine Small (1+) (Negative); Nitrite Urine Positive (Negative); PH 5.5 (5.0-9.0); Specific Gravity - Urine 1.025 (1.005-1.025); UMIC TRIGGER UACC YES; Urine Blood Large (3+) (Negative); Urine Ketones 15 mg/dL (Negative); Urine Protein Trace mg/dL (Neg-Trace)
[2023-07-31 11:21] LABS: Bacteria Urine 4+ (None Seen); Hyaline Casts Urine 0-2 /LPF (0-2); RBC Urine >20 /HPF (0-2); UACC Culture Trigger YES; WBC Urine 21-50 /HPF (0-5)
[2023-07-31 11:26] LABS: Alanine Aminotransferase 21 U/L (0-31); Albumin Level 3.8 g/dL (3.5-5.0); Alkaline Phosphatase 109 U/L (39-117); Anion Gap 15 (12-20); Aspartate Amino Transferase 38 U/L (5-31); Bilirubin Total 1.1 mg/dL (0.0-1.0); Blood Urea Nitrogen 36 mg/dL (9-16); Calcium 9.6 mg/dL (8.4-10.2); Carbon Dioxide 27 mmol/L (22-29); Chloride 100 mmol/L (96-108); Cholesterol 209 mg/dL (<200); Estimated Glomerular Filt Rate 42; Glucose Fasting 161 mg/dL (60-99); HDL Cholesterol 50 mg/dL (>40); LDL Cholesterol Calculated 142 mg/dL (<100); Potassium 4.1 mmol/L (3.3-5.1); Sodium 138 mmol/L (135-145); Thyroid Stimulating Hormone 2.71 uIU/mL (0.32-4.0); Total Protein 7.3 g/dL (6.5-8.0); Triglycerides 89 mg/dL (<150); Vitamin D 25-OH Total 53.7 ng/mL (>30)
[2023-07-31 12:21] LABS: Folate 16.7 ng/mL (> or = 4.0); Vitamin B12 973 pg/mL (200-900)
== END 2023-07-31 09:25 | disposition home or self-care (01) ==
LOC: HO.HMGCLDS 09:24
PROVIDERS: PCP Internal Medicine; Visit Provider Internal Medicine
DX: I10 Essential (primary) hypertension (principal); E78.00 Pure hypercholesterolemia, unspecified; E03.9 Hypothyroidism, unspecified; E53.8 Deficiency of other specified B group vitamins; E55.9 Vitamin D deficiency, unspecified; R30.0 Dysuria
CPT/HCPCS: 36415; 80053; 80061; 81001; 82306; 82607; 82746; 84439; 84443; 85025; 87086

== ENCOUNTER 2023-08-07 14:03 | Outpatient (AMB) | payer MEDICARE, SELFPAY ==
[2023-08-07 14:06] VITALS: BP 110/68; PULSE 64; O2SAT 93; BMI 15.4
--- NOTE | 2023-08-07 14:06 | MHC.PC.OV ---
Vital Signs 08/07/23 14:06 Height 5 ft 1 in Weight 81 lb 8 oz BMI 15.4 BP 110/68 Blood Pressure Location Lt brachial Position Sitting Pulse 64 Pulse Source Pulse Oximeter Pulse Oximetry (%) 93 Oxygen Delivery Method Room Air Intake Visit Reasons: AF, hyperlipidemia, hypothyroidism, CHF, dementia Bi Application Developer Required: No Accompanied by: Self / Same As Patient Allergies Sulfa (Sulfonamide Antibiotics) [Sulfa (Sulfonamides)] Allergy (Mild, Verified 08/07/23 14:45) RASH ciprofloxacin [Cipro] Allergy (Unknown, Verified 08/07/23 14:45) rash scallops Allergy (Unknown, Verified 08/07/23 14:45) Sick to the stomach Medication List - Last Reconciled 08/07/23 by Darrian Proctor MD amoxicillin 2,000 mg PO ONCE PRN cholecalciferol (vitamin D3) 25 mcg PO DAILY 90 days donepezil 10 mg PO DAILY 90 days furosemide 20 mg orally One tablet daily except Sunday and Sunday 2 tablets; levothyroxine 75 mcg PO DAILY 90 days metoprolol succinate ER 100 mg PO DAILY 90 days warfarin 2 mg See Protocol PO 4XW 90 days Tobacco use date assessed: 08/07/23 Fall risk assessment: No Falls in past year Last assessed Fall Risk: 08/07/23 Dental Screening Dental Screen Date: 08/07/23 Did you have a dental visit in the last 12 months?: Yes Did you have a dental problem in the last 6 months where you did not have access to dental care?: No Was dental information given to patient?: Patient has dentist HPI AF, hyperlipidemia, hypothyroidism, CHF, dementia HPI Details Patient comes in today for her follow up visit - she is again accompanied by her daughter, who helps provide information when patient has difficulty doing so and unable to remember States that she feels okay She denies any headaches or dizziness Denies any chest pains, no SOB No nausea/vomiting, no abdominal pain No change in bowel habits noted Had her follow up labs done last week - to discuss her results [facility] Medical History Anticoagulated on Coumadin Petechial rash Petechial rash Enlarged RV (right ventricle) Tricuspid regurgitation Alzheimer's disease Irritable bowel syndrome (IBS) Osteoporosis Chronic kidney disease (CKD), stage III (moderate) Pure hypercholesterolemia Hypothyroidism Chronic atrial fibrillation Mitral regurgitation CHF due to valvular disease Surgical History Status post implantation of mitral valve leaflet clip (~06/16/20) Hx of tubal ligation Hx of left mastectomy No pertinent past surgical history Family History Father Hx of blood clots Mother Hx of blood clots Social History Housing: House Alcohol intake: never Patient Tobacco Use Status: Never used Tobacco e-Cigarette/Vaping Use: Never Used Second Hand Smoke Exposure: No service: No Current occupational status: retired Cognitive needs: No Hearing needs: No Vision needs: Yes Questionnaire PHQ-9 Over the last 2 weeks, how often have you been bothered by any of the following problems? 1. Little interest or pleasure in doing things: not at all 2. Feeling down, depressed, or hopeless: not at all 3. Trouble falling or staying asleep, or sleeping too much: not at all 4. Feeling tired or having little energy: several days 5. Poor appetite or overeating: not at all 6. Feeling bad about yourself - or that you are a failure or have let yourself or your family down: several days 7. Trouble concentrating on things, such as reading the newspaper or watching television: not at all 8. Moving or speaking so slowly that other people could have noticed. Or the opposite - being so fidgety or restless that you have been moving around a lot more than usual: not at all 9. Thoughts that you would be better off or of hurting yourself in some way: not at all Total score: 2 Depression Screening Interpretation: Negative Depression Screening Done: Yes 40148 - PHQ-9 Billing: Yes Source: Developed by Drs. Freedom Yung, Radha Herrera, Adi Anand and colleagues, with an educational alejandro from [employer]. Thrive Questionnaire Date Thrive assessed: 08/07/23 I am a: Patient What is your living situation today?: I have a steady place to live Within the past 12 months, did the food you bought not last and you didn't have the money to get more?: Never true Within the past 12 months, did you worry whether your food would run out before you got money to buy more?: Never true Do you have trouble paying for medicines?: No Do you have trouble getting transportation to medical appointments?: No Do you have trouble paying your heating and electricity bill?: No Do you have trouble taking care of your child, family member or friend?: No Do you have trouble with day-to-day activities such as bathing, preparing meals, shopping, managing finances, etc.?: No Are you currently unemployed and looking for a job?: No Are you interested in more education?: No Please select the resources that you would like help with: None Currently or been in a relationship where the following occur: no concerns reported AUDIT C Alcohol Use Questionnaire (AUDIT-C) 1. How often do you have a drink containing alcohol?: Never 3. How often do you have six or more drinks on one occasion?: Never Total Score: 0 Score Reviewed/Action Taken: Yes ALTON-7 AMB Questionnaire ALTON-7 Date ALTON - 7 assessed: 08/07/23 Feeling nervous, anxious, or on edge: 0 = Not at all Not being able to stop or control worryin = Not at all Worrying too much about different things: 0 = Not at all Trouble relaxin = Not at all Being so restless that it is hard to sit still: 0 = Not at all Becoming easily annoyed or irritable: 0 = Not at all Feeling afraid as if something awful might happen: 0 = Not at all Total ALTON-7 score (0-4 normal; 5-9 mild; 10-14 moderate; 15-21 severe): 0 Source: Developed by Drs. Freedom Yung, Radha Herrera, Adi Anand and colleagues, with an educational alejandro from [employer]. ALTON-7 Assessment Billing ALTON-7 Assessment Tool: ALTON-7 Assessment 75184 Review of Systems Const Denies anorexia (daughter states that patient has been eating better lately), Denies difficulty sleeping, Denies fatigue, Denies fever(s) and Denies headache(s) ENT Denies dysphagia, Denies dizziness, Denies otalgia, Denies headache(s), Denies neck pain, Denies odynophagia and Denies sore throat Card Denies chest pain, Denies palpitations and Denies dyspnea Resp Denies cough, Denies dyspnea and Denies wheezing GI Denies abdominal pain, Denies constipation, Denies dysphagia, Denies heartburn, Denies diarrhea, Denies nausea, Denies odynophagia and Denies vomiting Denies difficulty voiding, Denies nocturia, Denies dysuria and Denies urinary urgency Musc Denies neck pain Skin/Breast Denies rash Neuro Denies confusion, Denies dizziness, Denies headache(s) and Reports memory loss (stable) Psych Denies confusion and Reports memory loss (stable) Endo Denies fatigue and Denies palpitations Aller/Immun Denies wheezing Physical exam (Primary Care) Vital Signs: Last Vital Signs Pulse 64 08/07/23 14:06 BP 110/68 08/07/23 14:06 Pulse Ox 93 08/07/23 14:06 Oxygen Delivery Method Room Air 08/07/23 14:06 BMI result Body Mass Index 15.4 Tobacco/Smoking Status: Tobacco use Status Tobacco use date assessed 08/07/23 08/07/23 14:08 Patient Tobacco Use Status Never used Tobacco 08/07/23 14:08 e-Cigarette/Vaping Use Never Used 08/07/23 14:08 PHQ-9: PHQ-9 Score PHQ-9: Total score 2 08/07/23 14:26 Depression Screening Interpretation: Negative Thrive Assessment: Date of Thrive Assessment Date Thrive assessed 08/07/23 08/07/23 14:08 Currently or been in a relationship where the following occur: no concerns reported Const General: No confusion Orientation/consciousness: No confusion HENMT Ears: TM's normal bilaterally and EAC's normal Throat: Yes posterior oropharynx normal and Yes tonsils normal (no TP congestion noted) Neck Neck: Yes no lymphadenopathy and Yes supple Resp Auscultation: clear to auscultation bilaterally, no rales and no wheezes Cardio Rate: regular rate Rhythm: abnormal rhythm irregularly irregular Heart sounds: Murmur heart sound present systolic III/, at the apex and at the left sternal border GI Palpation (GI): Soft to palpation and nontender Auscultation: normal bowel sounds Neuro General: No confusion Extrem General: Yes no clubbing, cyanosis or edema Results Reviewed Results Reviewed: Laboratory Tests 07/31/23 07/31/23 08:00 09:29 WBC 6.0 Hgb 14.0 Hct 43.7 Plt Count 272 D Sodium 138 Potassium 4.1 Creatinine 1.22 Estimated GFR 42 Fasting Glucose 161 H Calcium 9.6 Total Bilirubin 1.1 H AST 38 H ALT 21 Triglycerides 89 Cholesterol 209 H LDL Cholesterol, Calc 142 H HDL Cholesterol 50 Vitamin B12 973 H 25-OH Vitamin D Total 53.7 TSH 2.71 Free T4 1.30 Ur Specific [place] 1.025 Urine Protein Trace Urine Glucose (UA) Negative Urine Blood Large (3+) H Assessment and Plan Assessment & Plan (1) Chronic atrial fibrillation: Code(s): I48.20 - Chronic atrial fibrillation, unspecified Plan: Patient remains rate-controlled on Metoprolol ER 100 mg QD Continue long-term anticoagulation with Coumadin - patient continues to follow-[facility] with [facility] for PT/ INR monitoring regularly (2) CHF due to valvular disease: Code(s): I50.9 - Heart failure, unspecified; I38 - Endocarditis, valve unspecified Plan: Compensated - symptoms have improved a lot since her MitraClip procedure a few years ago in May 2020 Echocardiogram done a few years ago (prior to her MitraClip procedure) showed ejection fraction to be between 60-65% but with severe mitral regurgitation, severe tricuspid regurgitation and biatrial enlargement Repeat echocardiogram on 08/02/22 revealed normal LV systolic function, moderately increased right ventricular size with reduced? systolic function, severe biatrial enlargement, MitraClip in place, with mild mitral regurgitation, mild aortic regurgitation, moderate to severe? tricuspid regurgitation with mildly elevated right atrial pressures with normal RV systolic pressure. No gross pericardial effusion?is seen Reinforced fluid restriction Continue Furosemide 40 mg alternating with 20 mg Q AM Follow up with Cardiology as scheduled (3) Mitral regurgitation: Comment: Status post MitraClip Code(s): I34.0 - Nonrheumatic mitral (valve) insufficiency Qualifiers: Cardiac valve disease etiology: nonrheumatic Qualified Code(s): I34.0 - Nonrheumatic mitral (valve) insufficiency Plan: S/P MitraClip procedure at [facility] on 06/16/2020, followed by cardiac rehab, which patient states has helped a lot with her symptoms Follow-up with cardiology as scheduled (4) Pure hypercholesterolemia: Code(s): E78.00 - Pure hypercholesterolemia, unspecified Plan: Results of her labs done last week reviewed and discussed with patient and her daughter Reinforced to continue on low cholesterol diet Patient was on Simvastatin in the past but this was discontinued during her hospitalization last year and she prefers not to go back on it if possible Will recheck her labs and fasting lipids in 4 months for follow-up (5) Hypothyroidism: Code(s): E03.9 - Hypothyroidism, unspecified Qualifiers: Hypothyroidism type: acquired Qualified Code(s): E03.9 - Hypothyroidism, unspecified Plan: TFTs remained normal on her labs done last week Continue Levothyroxine 75 mcg QD Was seeing endocrinology for follow up but Dr. George left the practice a couple of years ago; will renew referral to endocrinology only if necessary Will recheck her TFTs in 4 months for follow up (6) Chronic kidney disease (CKD), stage III (moderate): Code(s): N18.30 - Chronic kidney disease, stage 3 unspecified Qualifiers: Chronic kidney disease stage 3 subtype: stage 3a (GFR 45-59) Qualified Code(s): N18.31 - Chronic kidney disease, stage 3a Plan: Stable -? will continue to monitor her renal function regularly (7) Osteoporosis: Code(s): M81.0 - Age-related osteoporosis without current pathological fracture Qualifiers: Osteoporosis type: age-related Presence of current pathological fracture: without current pathological fracture Qualified Code(s): M81.0 - Age-related osteoporosis without current pathological fracture Plan: Repeat BMD back on 01/27/2021 revealed about a 10% decline in her overall BMD from her previous scan in July 2016 Patient was referred to and seen by Endocrinology recently and recommended starting on Prolia but patient decided against taking any Rx due to their potential side effects Continue Caltrate 600+ D tablet chewable, 600-400 mg - unit 1 tablet BID Follow-up with endocrinology as scheduled (8) Irritable bowel syndrome (IBS): Code(s): K58.9 - Irritable bowel syndrome without diarrhea Qualifiers: Irritable bowel syndrome type: unspecified Qualified Code(s): K58.9 - Irritable bowel syndrome without diarrhea Plan: Follow up with GI (Dr. Tolliver)? as scheduled Has been taking Align (as recommended by Dr. Tolliver) and states that this has helped a lot States that Dr. Tolliver recommended no further intervention or procedures -? last colonoscopy in 2008 was normal (9) Alzheimer's disease: Code(s): G30.9 - Alzheimer's disease, unspecified; F02.80 - Dementia in other diseases classified elsewhere, unspecified severity, without behavioral disturbance, psychotic disturbance, mood disturbance, and anxiety Plan: Continue Donepezil 5 mg Q HS Follow-up with Neurology as scheduled (10) Bacteriuria: Code(s): R82.71 - Bacteriuria Plan: Patient's recent urine culture grew (+) multiple monica, suggestive of contamination Patient states that she has NO acute urinary symptoms at all - denies dysuria, urinary frequency or urgency or nocturia Advised to increase her oral fluid intake; as she currently has no acute symptoms, will NOT treat with antibiotics Plan Follow up in 4 months Orders: Orders Thyroid Stimulating Hormone 4 Months E03.9 - Hypothyroidism, unspecified Free T4 (Free Thyroxine) 4 Months E03.9 - Hypothyroidism, unspecified Comprehensive [place]. Panel Fast 4 Months E78.00 - Pure hypercholesterolemia, unspecified Lipid Panel 4 Months E78.00 - Pure hypercholesterolemia, unspecified Complete Blood Count Auto Diff 4 Months I10 - Essential (primary) hypertension UA CC w/rflx Micro + Cult 4 Months R30.0 - Dysuria Vitamin B12 and Folate 4 Months E53.8 - Deficiency of other specified B group vitamins Vitamin D 25-OH Total 4 Months E55.9 - Vitamin D deficiency, unspecified Coding Level of Care Code Est Pt Level 4 (99957) Diagnoses Chronic atrial fibrillation I48.20 CHF due to valvular disease I50.9; I38 Nonrheumatic mitral valve regurgitation I34.0 Cardiac valve disease etiology: nonrheumatic Pure hypercholesterolemia E78.00 Acquired hypothyroidism E03.9 Hypothyroidism type: acquired Stage 3a chronic kidney disease N18.31 Chronic kidney disease stage 3 subtype: stage 3a (GFR 45-59) Age-related osteoporosis without current pathological fracture M81.0 Osteoporosis type: age-related Presence of current pathological fracture: without current pathological fracture Irritable bowel syndrome, unspecified type K58.9 Irritable bowel syndrome type: unspecified Alzheimer's disease G30.9; F02.80 Bacteriuria R82.71 Additional Codes ALTON-7 Assessment Billing - ALTON-7 Assessment Tool: ALTON-7 Assessment [id number] ([id number])
== END 2023-08-07 14:49 | disposition home or self-care (01) ==
PROVIDERS: PCP Internal Medicine; Visit Provider Internal Medicine
DX: I48.20 Chronic atrial fibrillation, unspecified (principal); I50.9 Heart failure, unspecified; N18.31 Chronic kidney disease, stage 3a; G30.9 Alzheimer's disease, unspecified; F02.80 Dementia in other diseases classified elsewhere, unspecified severity, without behavioral disturbance, psychotic disturbance, mood disturbance, and anxiety; I38 Endocarditis, valve unspecified; I34.0 Nonrheumatic mitral (valve) insufficiency; E78.00 Pure hypercholesterolemia, unspecified; E03.9 Hypothyroidism, unspecified; M81.0 Age-related osteoporosis without current pathological fracture; K58.9 Irritable bowel syndrome, unspecified; R82.71 Bacteriuria
CPT/HCPCS: 99214

== ENCOUNTER 2023-08-14 10:12 | Outpatient (AMB) | payer MEDICARE, SELFPAY ==
[2023-08-14 10:20] LABS: Prothrombin Time Whole Bld POC 32.6 sec (11.1-13.5); ~PT, ~INR - Anti Coag Clinic 2.7 (0.9-1.1)
--- NOTE | 2023-08-14 10:20 | MHC.OFFVISCO ---
Intake Intake Visit Reasons: Anticoagulation Allergies Sulfa (Sulfonamide Antibiotics) [Sulfa (Sulfonamides)] Allergy (Mild, Verified 08/14/23 10:16) RASH ciprofloxacin [Cipro] Allergy (Unknown, Verified 08/14/23 10:16) rash scallops Allergy (Unknown, Verified 08/14/23 10:16) Sick to the stomach Medication List - Last Reconciled 08/14/23 by Citlaly Kate RN amoxicillin 2,000 mg PO ONCE PRN cholecalciferol (vitamin D3) 25 mcg PO DAILY 90 days donepezil 10 mg PO DAILY 90 days furosemide 20 mg orally One tablet daily except Sunday and Sunday 2 tablets; levothyroxine 75 mcg PO DAILY 90 days metoprolol succinate ER 100 mg PO DAILY 90 days warfarin 2 mg See Protocol PO 4XW 90 days Nursing Note INR: 2.7- in therapeutic range of 2-3 Medications and supplements reviewed No changes in health, diet, medications, or supplements, Denies any signs and symptoms of bleeding or bruising or clotting. 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
== END 2023-08-14 10:27 | disposition home or self-care (01) ==
LOC: HO.ACS 10:12
PROVIDERS: PCP Internal Medicine; Visit Provider Internal Medicine
DX: Z79.01 Long term (current) use of anticoagulants (principal)

== ENCOUNTER → 2023-08-14 10:12 | Outpatient (BNVA) | payer MEDICARE, SELFPAY | PROVIDERS: PCP Internal Medicine; Visit Provider Internal Medicine | DX: I48.20 Chronic atrial fibrillation, unspecified (principal); Z79.01 Long term (current) use of anticoagulants; Z51.81 Encounter for therapeutic drug level monitoring | CPT/HCPCS: 85610; 99211 ==

== ENCOUNTER → 2023-08-23 08:22 | Outpatient (REF) | payer MEDICARE, SELFPAY ==
--- NOTE | 2023-08-23 08:26 | CA_ITS ---
Transthoracic Echocardiogram Patient (Last, First, Middle): Sandra Herrear A Gender: Female Date of : 1940 Age: 83 Procedure Date: 08/23/2023 Procedure Type: Transthoracic Echocardiogram Location: OP Height: 157.48 cm Weight: 37.2 kg BSA: 1.31 m2 Heart Rate: bpm BP: 118 / 68 mmHg Deckhand Clam Dredge: TO Referring MD: Mikey Rodriguez MD Symptoms: I50.9 - Heart failure, unspecified Study Quality: Technically Difficult ECG Rhythm: Atrial Fibrillation Conclusions: - The left ventricular systolic function is normal. The visually estimated ejection fraction is between 55-60%. - Severe biatrial enlargement. - Atrial septal defect with left to right shunt and gradient of 17mmHg. - There is mild to moderate mitral valve regurgitation. Mitraclip in place. Mean gradient of 7mmHg at 70/min. - There is moderate tricuspid valve regurgitation. - Mild pulmonary hypertension is present. Findings Procedure Information The study quality is limited by patients body habitus. Left Ventricle Normal left ventricular cavity size. There is normal left ventricular wall thickness. The left ventricular systolic function is normal. The visually estimated ejection fraction is between 55-60%. There is no evidence of regional wall motion abnormalities. Diastolic function is indeterminate on the basis of available data. Right Ventricle Mildly increased right ventricular cavity size. There is low normal right ventricular systolic function. Atria Severe biatrial enlargement. Atrial septal defect with left to right shunt and gradient of 17mmHg. Aortic Valve There is a normal trileaflet aortic valve. There is no aortic valve stenosis. There is mild aortic valve regurgitation. Mitral Valve There is mild to moderate mitral valve regurgitation. Mitraclip in place. Mean gradient of 7mmHg at 70/min. Pulmonic Valve There is trace to mild pulmonic valve regurgitation. Tricuspid Valve There is moderate tricuspid valve regurgitation. Mild pulmonary hypertension is present. Great Vessels The asc aorta is normal in size. Venous The inferior vena cava is mildly dilated and collapses less than 50% with inspiration. Pericardium/Pleural There is a trivial pericardial effusion. Prior Study Comparison No significant change compared to prior study dated: 08/02/2022. Measurements 2D Linear Measurements IVSd: 1.02 0.6-0.9/0.6-1.0 cm LVIDd: 4.91 3.9-5.3/4.2-5.9 cm LVIDd Index: 3.75 2.4-3.2/2.2-3.1 cm/m2 LVIDs: 3.01 2.0-3.6 cm LVPWd: 1.00 0.7-1.1 cm LA Diam: 4.90 2.7-3.8/3.0-4.0 cm LAIDs Index: 3.74 1.5-2.3 cm/m2 LV Mass: 222.57 67-162/88-224 g LV Mass Index: 169.90 43-95/49-115 g/m2 LVOT Diam: 2.00 3.0+(-)1.3 cm 2D Systolic Function EF 4C: 46.70 >55% EF 2C: 48.40 >55% Mitral Valve MV VTI: 0.57 MV Pk Eduard: 2.28 MV Mn Eduard: 1.14 MV Pk Grad: 21.00 MV Mn Grad: 7.00 E'Lateral: 10.70 E'Medial: 8.12 MVA Continuity: 0.61 MR VTI: 1.77 Aortic Valve AoV Pk Eduard: 0.75 AoV Pk Grad: 2.00 AI Pk Eduard: 3.43 AI [place]: 1.27 LVOT LVOT Pk Eduard: 0.56 LVOT Mn Eduard: 0.36 LVOT VTI: 0.11 LVOT Pk Grad: 1.00 LVOT Mn Grad: 1.00 LVOT Diam: 2.00 LVOT Area: 3.14 Diastolic Function E'Medial: 8.12 E' Laterial: 10.70 Right Ventricle TAPSE (mm): 17.60 TVS' Eduard: 11.20 Tricuspid Valve TR Pk Eduard: 3.06 TR Pk Grad: 37.00 RA Press: 15.00 RVSP: 52.00 Great Vessels Aorta Sinus of Valsalva: 2.97 2.0-3.5 cm Ao Asc: 3.00 2.1-3.4 cm Updated in Other Vendor System with Status of Final Pedro Joseph MD electronically signed on 08/25/2023 12:15:22 PM with status of Final
== END ==
LOC: HO.CARD 08:22
PROVIDERS: PCP Internal Medicine; Visit Provider Internal Medicine Cardiovascular Disease
DX: I50.9 Heart failure, unspecified (principal); I38 Endocarditis, valve unspecified
CPT/HCPCS: 93306

== ENCOUNTER → 2023-08-23 08:26 | Outpatient (BNV) | payer MEDICARE, SELFPAY | PROVIDERS: PCP Internal Medicine; Visit Provider Internal Medicine | DX: I50.9 Heart failure, unspecified (principal) | CPT/HCPCS: 93306 ==

== ENCOUNTER 2023-09-11 09:56 | Outpatient (AMB) | payer MEDICARE, SELFPAY ==
--- NOTE | 2023-09-11 10:01 | MHC.OFFVISCO ---
Intake Intake Visit Reasons: Anticoagulation Allergies Sulfa (Sulfonamide Antibiotics) [Sulfa (Sulfonamides)] Allergy (Mild, Verified 09/11/23 09:57) RASH ciprofloxacin [Cipro] Allergy (Unknown, Verified 09/11/23 09:57) rash scallops Allergy (Unknown, Verified 09/11/23 09:57) Sick to the stomach Medication List - Last Reconciled 09/11/23 by Citlaly Kate RN amoxicillin 2,000 mg PO ONCE PRN cholecalciferol (vitamin D3) 25 mcg PO DAILY 90 days donepezil 10 mg PO DAILY 90 days furosemide 20 mg orally One tablet daily except Sunday and Sunday 2 tablets; levothyroxine 75 mcg PO DAILY 90 days metoprolol succinate ER 100 mg PO DAILY 90 days warfarin 2 mg See Protocol PO 4XW 90 days Nursing Note INR: 2.5- in therapeutic range of 2-3 Medications and supplements reviewed- no changes No changes in health, diet, medications, or supplements, Denies any signs and symptoms of bleeding or bruising or clotting. 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
[2023-09-11 10:03] LABS: Prothrombin Time Whole Bld POC 29.6 sec (11.1-13.5); ~PT, ~INR - Anti Coag Clinic 2.5 (0.9-1.1)
== END 2023-09-11 10:20 | disposition home or self-care (01) ==
LOC: HO.ACS 09:56
PROVIDERS: PCP Internal Medicine; Visit Provider Internal Medicine
DX: Z79.01 Long term (current) use of anticoagulants (principal)

== ENCOUNTER → 2023-09-11 09:56 | Outpatient (BNVA) | payer MEDICARE, SELFPAY | PROVIDERS: PCP Internal Medicine; Visit Provider Internal Medicine | DX: I48.20 Chronic atrial fibrillation, unspecified (principal); Z79.01 Long term (current) use of anticoagulants; Z51.81 Encounter for therapeutic drug level monitoring | CPT/HCPCS: 85610; 99211 ==

== ENCOUNTER 2023-10-16 10:01 | Outpatient (AMB) | payer MEDICARE, SELFPAY ==
--- NOTE | 2023-10-16 10:24 | MHC.OFFVISCO ---
Intake Intake Visit Reasons: Anticoagulation Allergies Sulfa (Sulfonamide Antibiotics) [Sulfa (Sulfonamides)] Allergy (Mild, Verified 10/16/23 10:19) RASH ciprofloxacin [Cipro] Allergy (Unknown, Verified 10/16/23 10:19) rash scallops Allergy (Unknown, Verified 10/16/23 10:19) Sick to the stomach Medication List - Last Reconciled 10/16/23 by Citlaly Kate RN amoxicillin 2,000 mg PO ONCE PRN cholecalciferol (vitamin D3) 25 mcg PO DAILY 90 days donepezil 10 mg PO DAILY 90 days furosemide 20 mg orally One tablet daily except Sunday and Sunday 2 tablets; levothyroxine 75 mcg PO DAILY 90 days metoprolol succinate ER 100 mg PO DAILY 90 days warfarin 2 mg See Protocol PO 4XW 90 days Nursing Note INR: 2.6- in therapeutic range of 2-3 Medications and supplements reviewed- no changes No changes in health, diet, medications, or supplements, Denies any signs and symptoms of bleeding or bruising or clotting. 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
[2023-10-16 10:26] LABS: Prothrombin Time Whole Bld POC 31.5 sec (11.1-13.5); ~PT, ~INR - Anti Coag Clinic 2.6 (0.9-1.1)
== END 2023-10-16 10:52 | disposition home or self-care (01) ==
LOC: HO.ACS 10:01
PROVIDERS: PCP Internal Medicine; Visit Provider Internal Medicine
DX: Z79.01 Long term (current) use of anticoagulants (principal)

== ENCOUNTER → 2023-10-16 10:01 | Outpatient (BNVA) | payer MEDICARE, SELFPAY | PROVIDERS: PCP Internal Medicine; Visit Provider Internal Medicine | DX: I48.20 Chronic atrial fibrillation, unspecified (principal); Z79.01 Long term (current) use of anticoagulants; Z51.81 Encounter for therapeutic drug level monitoring | CPT/HCPCS: 85610; 99211 ==

== ENCOUNTER 2023-10-30 10:14 | Outpatient (REF) | payer MEDICARE, SELFPAY ==
[2023-10-30 11:05] LABS: MANUAL DIFF FLAG NO
[2023-10-30 11:57] LABS: Basophils Percent Auto 0.4 % (0-2); Eosinophils Absolute Auto 0.1 X10*3/uL (0.0-0.4); Eosinophils Percent Auto 1.6 % (0-4); Hematocrit 46.4 % (37.0-47.0); Hemoglobin 14.8 g/dl (12.0-16.0); Imm Gran Abs Auto 0.03 X10*3/uL (0.00-0.03); Imm Gran Pct Auto 0.6 % (0.0-0.4); Lymphocytes Percent Auto 21.4 % (20-40); Mean Corpuscular HGB Conc 31.9 g/dl (31.0-35.0); Mean Corpuscular Volume 100.2 fL (80.0-98.0); Mean Platelet Volume 9.1 fL (9.4-12.3); Monocytes Absolute Auto 0.4 X10*3/uL (0.1-1.2); Neutrophils Absolute Auto 3.3 x10*3/uL (2.0-8.3); Platelet Count 207 X10*3/uL (160-400); Red Blood Count 4.63 X10*6/uL (4.20-5.50); Red Cell Distribution Width 13.9 % (11.0-16.0); White Blood Count 4.9 X10*3/uL (4.8-10.8)
[2023-10-30 12:44] LABS: Alanine Aminotransferase 30 U/L (0-31); Albumin Level 4.1 g/dL (3.5-5.0); Alkaline Phosphatase 102 U/L (39-117); Anion Gap 13 (12-20); Aspartate Amino Transferase 43 U/L (5-31); Bilirubin Total 1.2 mg/dL (0.0-1.0); Blood Urea Nitrogen 31 mg/dL (9-16); Calcium 9.9 mg/dL (8.4-10.2); Carbon Dioxide 32 mmol/L (22-29); Chloride 100 mmol/L (96-108); Cholesterol 209 mg/dL (<200); Estimated Glomerular Filt Rate 43; Glucose Fasting 146 mg/dL (60-99); Glucose Random 145 mg/dL (60-115); HDL Cholesterol 64 mg/dL (>40); LDL Cholesterol Calculated 122 mg/dL (<100); Potassium 5.3 mmol/L (3.3-5.1); Sodium 140 mmol/L (135-145); Total Protein 7.4 g/dL (6.5-8.0); Triglycerides 117 mg/dL (<150)
[2023-10-30 12:55] LABS: Thyroid Stimulating Hormone 3.29 uIU/mL (0.32-4.0); Vitamin D 25-OH Total 53.9 ng/mL (>30)
[2023-10-30 13:13] LABS: Folate > 20.0 ng/mL (> or = 4.0)
[2023-10-31 12:11] LABS: Vitamin B12 754 pg/mL (200-900)
== END 2023-10-30 10:15 | disposition home or self-care (01) ==
LOC: HO.LAB 10:14
PROVIDERS: PCP Internal Medicine; Visit Provider Internal Medicine Cardiovascular Disease
DX: E53.8 Deficiency of other specified B group vitamins (principal); E55.9 Vitamin D deficiency, unspecified; E03.9 Hypothyroidism, unspecified; E78.00 Pure hypercholesterolemia, unspecified; I11.0 Hypertensive heart disease with heart failure; I50.9 Heart failure, unspecified; I38 Endocarditis, valve unspecified; I48.20 Chronic atrial fibrillation, unspecified; Q21.10 Atrial septal defect, unspecified; Z98.890 Other specified postprocedural states; Z95.818 Presence of other cardiac implants and grafts
CPT/HCPCS: 36415; 80048; 80053; 80061; 82306; 82607; 82746; 84439; 84443; 85025; 93005; 99212

== ENCOUNTER 2023-10-30 10:14 | Outpatient (AMB) | payer MEDICARE, SELFPAY ==
[2023-10-30 10:20] VITALS: BP 106/62; PULSE 66; BMI 15.8
--- NOTE | 2023-10-30 10:20 | MHC.OFFVIS ---
Intake Vital Signs 10/30/23 10:20 Height 5 ft 1 in Weight 83 lb 12.41 oz BMI 15.8 BP 106/62 Blood Pressure Location Lt brachial Position Left Lateral Pulse 66 Pulse Source Monitor Intake Visit Reasons: 6 mth f/up Intake Note: 6 month follow up with EKG PT feels good Allergies Sulfa (Sulfonamide Antibiotics) [Sulfa (Sulfonamides)] Allergy (Mild, Verified 10/16/23 10:19) RASH ciprofloxacin [Cipro] Allergy (Unknown, Verified 10/16/23 10:19) rash scallops Allergy (Unknown, Verified 10/16/23 10:19) Sick to the stomach Medication List - Last Reconciled 10/30/23 by Mikey Rodriguez MD amoxicillin 2,000 mg PO ONCE PRN cholecalciferol (vitamin D3) 25 mcg PO DAILY 90 days donepezil 10 mg PO DAILY 90 days furosemide 20 mg orally One tablet daily except Sunday and Sunday 2 tablets; levothyroxine 75 mcg PO DAILY 90 days metoprolol succinate ER 100 mg PO DAILY 90 days warfarin 2 mg See Protocol PO 4XW 90 days HPI HPI Comments History of Present Illness Details Sandra comes for follow-up. She is accompanied by her daughter. She has been doing well. Daughter is the 1 who manages her medications as she has some cognitive issues. She denies any worsening shortness of breath, orthopnea, PND. Denies any prolonged palpitation irregular heartbeat, weight gain, abdominal distension. She denies any chest pain, lightheadedness, syncope. No bleeding issues or neurologic events. REPLACED BY [facility] Medical History Anticoagulated on Coumadin Petechial rash Petechial rash Enlarged RV (right ventricle) Tricuspid regurgitation Alzheimer's disease Irritable bowel syndrome (IBS) Osteoporosis Chronic kidney disease (CKD), stage III (moderate) Pure hypercholesterolemia Hypothyroidism Chronic atrial fibrillation Mitral regurgitation CHF due to valvular disease Surgical History Status post implantation of mitral valve leaflet clip (~06/16/20) Hx of tubal ligation Hx of left mastectomy No pertinent past surgical history Family History Father Hx of blood clots Mother Hx of blood clots Social History Housing: House Alcohol intake: never Patient Tobacco Use Status: Never used Tobacco e-Cigarette/Vaping Use: Never Used Second Hand Smoke Exposure: No service: No Current occupational status: retired Cognitive needs: No Hearing needs: No Vision needs: Yes Review of Systems Const Denies weakness ENT Denies dizziness Card Denies chest pain, Denies chest pain with activity, Denies syncope, Denies rapid heart rate, Denies pedal edema, Denies edema, Denies leg edema, Denies lightheadedness, Denies palpitations, Denies dyspnea, Denies dyspnea on exertion and Denies orthopnea Resp Denies cough, Denies dyspnea and Denies dyspnea on exertion GI Denies hematochezia and Denies change in stool character Musc Denies abnormal gait, Denies muscle cramps, Denies muscle weakness, Denies numbness, Denies radiating pain into limb and Denies tingling Neuro Denies abnormal gait, Denies dizziness, Denies syncope, Denies numbness, Denies tingling and Denies weakness Endo Denies palpitations Physical Exam Vital Signs: Last Vital Signs Pulse 66 10/30/23 10:20 BP 106/62 10/30/23 10:20 BMI result Body Mass Index 15.8 Const General: cooperative, comfortable, no acute distress, alert, awake, Physically active and well groomed Nutritional Appearance: thin and underweight Orientation/consciousness: patient oriented x3 Limitations: no limitations Neck Neck: Yes trachea midline, Yes supple and Yes no JVD (Prominent V-waves) Resp Effort & Inspection: normal respiratory effort Auscultation: clear to auscultation bilaterally Cardio Jugular venous distension: no JVD Palpation: abnormal PMI displaced PMI and heave (Right ventricular) Rhythm: abnormal rhythm irregularly irregular Heart sounds: S1 normal heart sound present, S2 normal heart sound present, no click and Murmur heart sound present systolic holo and at the right sternal border GI Auscultation: normal bowel sounds Skin General skin exam: no rashes or lesions noted Neuro General: patient oriented x3 and no focal motor deficits Extrem General: No clubbing, No cyanosis and Yes edema (Right greater than left, both lower extremity in compression stocking) Psych Appearance: grossly normal Office Procedures EKG Details: EKG shows atrial fibrillation with poor R-wave progression, nonspecific ST T wave changes, with poor baseline 79169-[id number], Complete Assessment & Plan Assessment & Plan (1) CHF due to valvular disease: Code(s): I50.9 - Heart failure, unspecified; I38 - Endocarditis, valve unspecified Plan: Congestive heart failure related to mitral and tricuspid regurgitation the past has done very well with MitraClip procedure with improvement in mitral regurgitation. Clinically euvolemic and well compensated with good functional status. Continue current diuretic dose. Daily weight monitoring avoidance of salt loading was discussed. Additional diuretics as need be. She is multiple comorbidities including chronic atrial fibrillation, RV enlargement, tricuspid regurgitation, cognitive impairment, CKD that may impair her overall prognosis. However she is done well. She is encouraged to continue to participate in physical activity as tolerated. Continue current rate control with metoprolol. (2) Chronic atrial fibrillation: Code(s): I48.20 - Chronic atrial fibrillation, unspecified Plan: Chronic rate control atrial fibrillation for many years. She is done well at this point in time with rate control. Will continue pursue rate control with metoprolol. Daughter wishes to switch her from warfarin to Eliquis for the ease due to her cognitive dysfunction as well as to improve her diet and not worry about monitoring the levels. Will pursue the same will switch her to Eliquis 2.5 mg b.i.d.. Advised renal function today. She will require quarterly renal function test on Eliquis. (3) Status post implantation of mitral valve leaflet clip: Onset Date: ~06/16/20 Comment: May 2020. Three Aks TR MitraClips were placed for severe mitral regurgitation with reduction mitral regurgitation to mild range. Procedure was done for primary mitral regurgitation secondary to mitral valve prolapse with congestive heart failure. Code(s): Z98.890 - Other specified postprocedural states; Z95.818 - Presence of other cardiac implants and grafts Plan: Status post MitraClip placement for significant mitral regurgitation. Has done extremely well since the same. She has not [id number] mitral regurgitation with mean gradient across the valve 7 mmHg. She has no evidence of mitral stenosis. She is underlying moderate tricuspid regurgitation. Will continue monitor clinically continue full oral anticoagulation. SBE prophylaxis as per ACC/[place] guidelines. (4) ASD (atrial septal defect): Code(s): Q21.10 - Atrial septal defect, unspecified Plan: Iatrogenic ASD related to MitraClip procedure. Clinically not significant at this point time. No interventions required. Will continue monitor clinically. Follow up in the clinic in 6 months time, sooner p.r.n.. Thank you for allowing me to partake in her care Orders: Orders Basic Metabolic Panel Today I48.20 - Chronic atrial fibrillation, unspecified Medications: New apixaban (Eliquis) 2.5 mg PO BID 60 tabs 5RF I48.20 - Chronic atrial fibrillation, unspecified Discontinued warfarin 2 mg x 5 days a week, 1 mg x 2 days a week. Discontinued Reason: Doctor's Order 2 mg See Protocol PO 4XW 90 days 52 tabs 3RF afib I48.20 - Chronic atrial fibrillation, unspecified, Z79.01 - MCFP (current) use of anticoagulants Coding Level of Care Code Est Pt Level 4 (02983) Diagnoses CHF due to valvular disease I50.9; I38 Chronic atrial fibrillation I48.20 Status post implantation of mitral valve leaflet clip Z98.890; Z95.818 ASD (atrial septal defect) Q21.10 CPT Codes EKG - CPT: 42986-Trkyomytihhsipwym, Complete ([id number])
== END 2023-10-30 10:39 | disposition home or self-care (01) ==
PROVIDERS: PCP Internal Medicine; Visit Provider Internal Medicine Cardiovascular Disease
DX: I50.9 Heart failure, unspecified (principal); I38 Endocarditis, valve unspecified; I48.20 Chronic atrial fibrillation, unspecified; Z98.890 Other specified postprocedural states; Z95.818 Presence of other cardiac implants and grafts; Q21.10 Atrial septal defect, unspecified
CPT/HCPCS: 93010; 99214

== ENCOUNTER 2023-11-01 09:40 | Outpatient (REF) | payer MEDICARE, SELFPAY ==
[2023-11-01 10:32] LABS: Appearance Urine Cloudy; Color Urine Dark Yellow; Glucose Urine UA Negative (Negative); Leukocyte Esterase Urine Trace (Negative); Nitrite Urine Positive (Negative); Specific Gravity - Urine 1.025 (1.005-1.025); UMIC TRIGGER UACC YES; Urine Blood Small (1+) (Negative); Urine Ketones Negative (Negative); Urine Protein 30 (1+) mg/dL (Neg-Trace)
[2023-11-01 10:35] LABS: Bacteria Urine 4+ (None Seen); Hyaline Casts Urine 0-2 /LPF (0-2); Squamous Epithelial Cell Urine 0-2 /HPF (0-2); UACC Culture Trigger YES
== END 2023-11-01 09:41 | disposition home or self-care (01) ==
LOC: HO.LNP 09:40
PROVIDERS: Visit Provider Internal Medicine
DX: R30.0 Dysuria (principal)
CPT/HCPCS: 81001; 81003; 87086; 87088; 87186

== ENCOUNTER 2023-12-04 04:00 | Outpatient (REF) | payer MEDICARE, SELFPAY ==
[2023-12-04 13:32] LABS: Appearance Urine Cloudy; Color Urine Dark Yellow; Glucose Urine UA Negative (Negative); PH 5.5 (5.0-9.0); Specific Gravity - Urine 1.025 (1.005-1.025); Urine Blood Small (1+) (Negative)
[2023-12-04 13:33] LABS: Leukocyte Esterase Urine Trace (Negative); Nitrite Urine Negative (Negative); UMIC TRIGGER UACC YES; Urine Ketones Negative (Negative); Urine Protein 30 (1+) mg/dL (Neg-Trace)
[2023-12-04 13:47] LABS: Bacteria Urine 4+ (None Seen); Calcium Oxalate Crystals Urine Present; Hyaline Casts Urine 0-2 /LPF (0-2); WBC Urine 0-5 /HPF (0-5)
== END 2023-12-04 04:01 | disposition home or self-care (01) ==
LOC: HO.HMGCLNP 04:00
PROVIDERS: PCP Internal Medicine; Visit Provider Internal Medicine
DX: R30.0 Dysuria (principal)
CPT/HCPCS: 81001

== ENCOUNTER 2023-12-12 14:20 | Outpatient (AMB) | payer MEDICARE, SELFPAY ==
[2023-12-12 14:21] VITALS: BP 114/72; PULSE 60; BMI 15.7
--- NOTE | 2023-12-12 14:21 | A.OFFPC_ITS ---
Vital Signs 12/12/23 14:21 Height 5 ft 1 in Weight 83 lb 0.8 oz BMI 15.7 BP 114/72 Blood Pressure Location Lt brachial Position Sitting Pulse 60 Pulse Source Pulse Oximeter Oxygen Delivery Method Room Air Intake Visit Reasons: 4 month f/u Nursing Home Manager Required: No Allergies Sulfa (Sulfonamide Antibiotics) [Sulfa (Sulfonamides)] Allergy (Mild, Verified 12/12/23 15:40) RASH ciprofloxacin [Cipro] Allergy (Unknown, Verified 12/12/23 15:40) rash scallops Allergy (Unknown, Verified 12/12/23 15:40) Sick to the stomach Medication List - Last Reconciled 12/12/23 by Darrian Proctor MD amoxicillin 2,000 mg PO ONCE PRN apixaban (Eliquis) 2.5 mg PO BID cholecalciferol (vitamin D3) 25 mcg PO DAILY 90 days donepezil 10 mg PO DAILY 90 days furosemide 20 mg orally One tablet daily except Sunday and Sunday 2 tablets; levothyroxine 75 mcg PO DAILY 90 days metoprolol succinate ER 100 mg PO DAILY 90 days Tobacco use date assessed: 12/12/23 Fall risk assessment: No Falls in past year Last assessed Fall Risk: 12/12/23 Dental Screening Dental Screen Date: 08/07/23 HPI 4 month f/u HPI Details Patient comes in today for follow-up visit States that she feels okay She denies any headaches or dizziness Denies any chest pains, no shortness of breath No nausea /vomiting, no abdominal pain No change in bowel habits noted Had her follow-up labs done a couple of weeks ago - to discuss her results [facility] Medical History Anticoagulated on Coumadin Petechial rash Petechial rash Enlarged RV (right ventricle) Tricuspid regurgitation Alzheimer's disease Irritable bowel syndrome (IBS) Osteoporosis Chronic kidney disease (CKD), stage III (moderate) Pure hypercholesterolemia Hypothyroidism Chronic atrial fibrillation Mitral regurgitation CHF due to valvular disease Surgical History Status post implantation of mitral valve leaflet clip (~06/16/20) Hx of tubal ligation Hx of left mastectomy No pertinent past surgical history Family History Father Hx of blood clots Mother Hx of blood clots Social History Housing: House Alcohol intake: never Patient Tobacco Use Status: Never used Tobacco e-Cigarette/Vaping Use: Never Used Second Hand Smoke Exposure: No service: No Current occupational status: retired Cognitive needs: No Hearing needs: No Vision needs: Yes Questionnaire PHQ-9 Over the last 2 weeks, how often have you been bothered by any of the following problems? 1. Little interest or pleasure in doing things: not at all 2. Feeling down, depressed, or hopeless: not at all 3. Trouble falling or staying asleep, or sleeping too much: not at all 4. Feeling tired or having little energy: several days 5. Poor appetite or overeating: not at all 6. Feeling bad about yourself - or that you are a failure or have let yourself or your family down: several days 7. Trouble concentrating on things, such as reading the newspaper or watching television: not at all 8. Moving or speaking so slowly that other people could have noticed. Or the opposite - being so fidgety or restless that you have been moving around a lot more than usual: not at all 9. Thoughts that you would be better off or of hurting yourself in some way: not at all Total score: 2 Depression Screening Interpretation: Negative Depression Screening Done: Yes 52128 - PHQ-9 Billing: Yes Source: Developed by Drs. Freedom Yung, Radha Herrera, Adi Anand and colleagues, with an educational alejandro from [employer]. Thrive Questionnaire Date Thrive assessed: 12/12/23 I am a: Patient What is your living situation today?: I have a steady place to live Within the past 12 months, did the food you bought not last and you didn't have the money to get more?: Never true Within the past 12 months, did you worry whether your food would run out before you got money to buy more?: Never true Do you have trouble paying for medicines?: No Do you have trouble getting transportation to medical appointments?: No Do you have trouble paying your heating and electricity bill?: No Do you have trouble taking care of your child, family member or friend?: No Do you have trouble with day-to-day activities such as bathing, preparing meals, shopping, managing finances, etc.?: No Are you currently unemployed and looking for a job?: No Are you interested in more education?: No Please select the resources that you would like help with: None Currently or been in a relationship where the following occur: no concerns reported THRIVE Score: 0 AUDIT C Alcohol Use Questionnaire (AUDIT-C) 1. How often do you have a drink containing alcohol?: Never 3. How often do you have six or more drinks on one occasion?: Never Total Score: 0 Score Reviewed/Action Taken: Yes ALTON-7 AMB Questionnaire ALTON-7 Date ALTON - 7 assessed: 12/12/23 Feeling nervous, anxious, or on edge: 0 = Not at all Not being able to stop or control worryin = Not at all Worrying too much about different things: 0 = Not at all Trouble relaxin = Not at all Being so restless that it is hard to sit still: 0 = Not at all Becoming easily annoyed or irritable: 0 = Not at all Feeling afraid as if something awful might happen: 0 = Not at all Total ALTON-7 score (0-4 normal; 5-9 mild; 10-14 moderate; 15-21 severe): 0 Source: Developed by Drs. Freedom Yung, Radha Herrera, Adi Anand and colleagues, with an educational alejandro from [employer]. ALTON-7 Assessment Billing ALTON-7 Assessment Tool: ALTON-7 Assessment 94130 Review of Systems Const Denies difficulty sleeping, Denies fatigue, Denies fever(s) and Denies headache(s) ENT Denies dysphagia, Denies dizziness, Denies otalgia, Denies headache(s), Denies neck pain, Denies odynophagia and Denies sore throat Card Denies chest pain, Denies palpitations and Denies dyspnea Resp Denies cough, Denies dyspnea and Denies wheezing GI Denies abdominal pain, Denies constipation, Denies dysphagia, Denies heartburn, Denies diarrhea, Denies nausea, Denies odynophagia and Denies vomiting Denies difficulty voiding, Denies nocturia, Denies dysuria and Denies urinary urgency Musc Denies neck pain Skin/Breast Denies rash Neuro Denies confusion, Denies dizziness, Denies headache(s) and Reports memory loss (stable) Psych Denies confusion and Reports memory loss (stable) Endo Denies fatigue and Denies palpitations Aller/Immun Denies wheezing Physical exam (Primary Care) Vital Signs: Last Vital Signs Pulse 60 12/12/23 14:21 BP 114/72 12/12/23 14:21 Oxygen Delivery Method Room Air 12/12/23 14:21 BMI result Body Mass Index 15.7 Tobacco/Smoking Status: Tobacco use Status Tobacco use date assessed 12/12/23 12/12/23 14:22 Patient Tobacco Use Status Never used Tobacco 12/12/23 14:22 e-Cigarette/Vaping Use Never Used 12/12/23 14:22 PHQ-9: PHQ-9 Score PHQ-9: Total score 2 12/12/23 15:42 Depression Screening Interpretation: Negative Thrive Assessment: Date of Thrive Assessment Date Thrive assessed 12/12/23 12/12/23 14:22 Currently or been in a relationship where the following occur: no concerns reported Const General: No confusion Orientation/consciousness: No confusion HENMT Ears: TM's normal bilaterally and EAC's normal Throat: Yes posterior oropharynx normal and Yes tonsils normal (no TP congestion noted) Neck Neck: Yes no lymphadenopathy and Yes supple Resp Auscultation: clear to auscultation bilaterally, no rales and no wheezes Cardio Rate: regular rate Rhythm: abnormal rhythm irregularly irregular Heart sounds: Murmur heart sound present systolic III/, at the apex and at the left sternal border GI Palpation (GI): Soft to palpation and nontender Auscultation: normal bowel sounds Neuro General: No confusion Extrem General: Yes no clubbing, cyanosis or edema Results Reviewed Results Reviewed: Laboratory Tests 10/30/23 12/04/23 11:04 09:00 WBC 4.9 Hgb 14.8 Hct 46.4 Plt Count 207 Sodium 140 Potassium 5.3 H Creatinine 1.19 Estimated GFR 43 Fasting Glucose 146 H Calcium 9.9 AST 43 H ALT 30 Triglycerides 117 Cholesterol 209 H LDL Cholesterol, Calc 122 H HDL Cholesterol 64 Vitamin B12 754 25-OH Vitamin D Total 53.9 TSH 3.29 Free T4 1.20 Ur Specific [place] 1.025 Urine Protein 30 (1+) H Urine Glucose (UA) Negative Urine Blood Small (1+) H Urine Nitrite Negative Ur Leukocyte Esterase Trace H Assessment and Plan Assessment & Plan (1) Chronic atrial fibrillation: Code(s): I48.20 - Chronic atrial fibrillation, unspecified Plan: Patient remains rate-controlled on Metoprolol ER 100 mg QD She was recently switched from Coumadin to Apixaban 2.5 mg BID by cardiology and is very happy that she no longer has to keep monitoring her INR and adjusting her Rx dose accordingly (2) CHF due to valvular disease: Code(s): I50.9 - Heart failure, unspecified; I38 - Endocarditis, valve unspecified Plan: Compensated - symptoms have improved a lot since her MitraClip procedure a few years ago in May 2020 Echocardiogram done a few years ago (prior to her MitraClip procedure) showed ejection fraction to be between 60-65% but with severe mitral regurgitation, severe tricuspid regurgitation and biatrial enlargement Repeat echocardiogram on 08/02/22 revealed normal LV systolic function, moderately increased right ventricular size with reduced? systolic function, severe biatrial enlargement, MitraClip in place, with mild mitral regurgitation, mild aortic regurgitation, moderate to severe? tricuspid regurgitation with mildly elevated right atrial pressures with normal RV systolic pressure. No gross pericardial effusion?is seen Reinforced fluid restriction Continue Furosemide 40 mg alternating with 20 mg Q AM Follow up with Cardiology as scheduled (3) Mitral regurgitation: Comment: Status post MitraClip Code(s): I34.0 - Nonrheumatic mitral (valve) insufficiency Qualifiers: Cardiac valve disease etiology: nonrheumatic Qualified Code(s): I34.0 - Nonrheumatic mitral (valve) insufficiency Plan: S/P MitraClip procedure at [facility] on 06/16/2020, followed by cardiac rehab, which patient states has helped a lot with her symptoms Follow-up with cardiology as scheduled (4) Pure hypercholesterolemia: Code(s): E78.00 - Pure hypercholesterolemia, unspecified Plan: Results of her labs done a couple of weeks ago reviewed and discussed with patient and her daughter Reinforced to continue on low cholesterol diet Patient was on Simvastatin in the past but this was discontinued during her hospitalization last year and she prefers not to go back on it if possible Will recheck her labs and fasting lipids in 4 months for follow-up (5) Hypothyroidism: Code(s): E03.9 - Hypothyroidism, unspecified Qualifiers: Hypothyroidism type: acquired Qualified Code(s): E03.9 - Hypothyroidism, unspecified Plan: TFTs remained normal on her labs done a couple of weeks ago Continue Levothyroxine 75 mcg QD Was seeing endocrinology for follow up but Dr. George left the practice a couple of years ago; will renew referral to endocrinology only if necessary Will recheck her TFTs in 4 months for follow up (6) Chronic kidney disease (CKD), stage III (moderate): Code(s): N18.30 - Chronic kidney disease, stage 3 unspecified Qualifiers: Chronic kidney disease stage 3 subtype: stage 3a (GFR 45-59) Qualified Code(s): N18.31 - Chronic kidney disease, stage 3a Plan: Stable -? will continue to monitor her renal function regularly (7) Osteoporosis: Code(s): M81.0 - Age-related osteoporosis without current pathological fracture Qualifiers: Osteoporosis type: age-related Presence of current pathological fracture: without current pathological fracture Qualified Code(s): M81.0 - Age- related osteoporosis without current pathological fracture Plan: Repeat BMD back on 01/27/2021 revealed about a 10% decline in her overall BMD from her previous scan in July 2016 Patient was referred to and seen by Endocrinology recently and recommended starting on Prolia but patient decided against taking any Rx due to their potential side effects Continue Caltrate 600+ D tablet chewable, 600-400 mg - unit 1 tablet BID Follow-up with endocrinology as scheduled (8) Irritable bowel syndrome (IBS): Code(s): K58.9 - Irritable bowel syndrome without diarrhea Qualifiers: Irritable bowel syndrome type: unspecified Qualified Code(s): K58.9 - Irritable bowel syndrome without diarrhea Plan: Follow up with GI (Dr. Tolliver)? as scheduled Has been taking Align (as recommended by Dr. Tolliver) and states that this has helped a lot States that Dr. Tolliver recommended no further intervention or procedures -? last colonoscopy in 2008 was normal (9) Alzheimer's disease: Code(s): G30.9 - Alzheimer's disease, unspecified; F02.80 - Dementia in other diseases classified elsewhere, unspecified severity, without behavioral disturbance, psychotic disturbance, mood disturbance, and anxiety Plan: Continue Donepezil 5 mg Q HS Follow-up with Neurology as scheduled Plan To return as scheduled in March 2024 for her annual Medicare Wellness Exam AND follow up visit Orders: Orders Free T4 (Free Thyroxine) 03/27/24 E03.9 - Hypothyroidism, unspecified Thyroid Stimulating Hormone 03/27/24 E03.9 - Hypothyroidism, unspecified Lipid Panel 03/27/24 E78.00 - Pure hypercholesterolemia, unspecified Vitamin D 25-OH Total 03/27/24 E55.9 - Vitamin D deficiency, unspecified Complete Blood Count Auto Diff 03/27/24 D64.9 - Anemia, unspecified Comprehensive [place]. Panel Fast 03/27/24 E78.00 - Pure hypercholesterolemia, unspecified UA CC w/rflx Micro + Cult 03/27/24 R30.0 - Dysuria Vitamin B12 and Folate 03/27/24 E53.8 - Deficiency of other specified B group vitamins Referrals Podiatry Referral L60.1 - Onycholysis Medications: Refilled metoprolol succinate ER 100 mg PO DAILY 90 tabs 3RF 90 days I48.20 - Chronic atrial fibrillation, unspecified levothyroxine 75 mcg PO DAILY 90 tabs 3RF 90 days E03.9 - Hypothyroidism, unsp ecified Coding Level of Care Code Est Pt Level 4 (55724) Diagnoses Chronic atrial fibrillation I48.20 CHF due to valvular disease I50.9; I38 Nonrheumatic mitral valve regurgitation I34.0 Cardiac valve disease etiology: nonrheumatic Pure hypercholesterolemia E78.00 Acquired hypothyroidism E03.9 Hypothyroidism type: acquired Stage 3a chronic kidney disease N18.31 Chronic kidney disease stage 3 subtype: stage 3a (GFR 45-59) Age-related osteoporosis without current pathological fracture M81.0 Osteoporosis type: age-related Presence of current pathological fracture: without current pathological fracture Irritable bowel syndrome, unspecified type K58.9 Irritable bowel syndrome type: unspecified Alzheimer's disease G30.9; F02.80 Additional Codes ALTON-7 Assessment Billing - ALTON-7 Assessment Tool: ALTON-7 Assessment 47524 ([id number])
== END 2023-12-12 15:06 | disposition home or self-care (01) ==
PROVIDERS: PCP Internal Medicine; Visit Provider Internal Medicine
DX: I48.20 Chronic atrial fibrillation, unspecified (principal); I50.9 Heart failure, unspecified; N18.31 Chronic kidney disease, stage 3a; G30.9 Alzheimer's disease, unspecified; F02.80 Dementia in other diseases classified elsewhere, unspecified severity, without behavioral disturbance, psychotic disturbance, mood disturbance, and anxiety; I38 Endocarditis, valve unspecified; I34.0 Nonrheumatic mitral (valve) insufficiency; E78.00 Pure hypercholesterolemia, unspecified; E03.9 Hypothyroidism, unspecified; M81.0 Age-related osteoporosis without current pathological fracture; K58.9 Irritable bowel syndrome, unspecified
CPT/HCPCS: 99214

== ENCOUNTER 2024-02-25 11:18 | Outpatient (AMB) | payer MEDICARE, SELFPAY ==
--- NOTE | 2024-02-25 11:19 | MHC.PC.OV ---
Vital Signs 02/25/24 11:23 Height 5 ft 1 in Weight 83 lb 8 oz BMI 15.8 BP 110/66 Blood Pressure Location Rt brachial Position Sitting Pulse 61 Pulse Source Pulse Oximeter Pulse Oximetry (%) 95 Oxygen Delivery Method Room Air Intake Visit Reasons: preop march 10 surgery cataract Intake Note: Patient is here for a Pre-op for Cataract surgery scheduled with Dr West ([facility]) on 03/10 for left, 03/24 for right Scrap Metal Collector Required: No District Supervisor: Present Accompanied by: Daughter Allergies Sulfa (Sulfonamide Antibiotics) [Sulfa (Sulfonamides)] Allergy (Mild, Verified 02/25/24 11:38) RASH ciprofloxacin [Cipro] Allergy (Unknown, Verified 02/25/24 11:38) rash scallops Allergy (Unknown, Verified 02/25/24 11:38) Sick to the stomach Medication List - Last Reconciled 02/25/24 by Darrian Proctor MD amoxicillin 2,000 mg PO ONCE PRN apixaban (Eliquis) 2.5 mg PO BID cholecalciferol (vitamin D3) 25 mcg PO DAILY 90 days donepezil 10 mg PO DAILY 90 days furosemide 20 mg orally One tablet daily except Sunday and Sunday 2 tablets; levothyroxine 75 mcg PO DAILY 90 days metoprolol succinate ER 100 mg PO DAILY 90 days Tobacco use date assessed: 02/25/24 Fall risk assessment: No Falls in past year Last assessed Fall Risk: 02/25/24 Dental Screening Dental Screen Date: 02/25/24 Did you have a dental visit in the last 12 months?: Yes Did you have a dental problem in the last 6 months where you did not have access to dental care?: No Was dental information given to patient?: Patient has dentist HPI preop march 10 surgery cataract HPI Details Patient comes in today at the request of Dr. Nelson West for a preoperative medical examination for clearance for surgery She is currently scheduled for cataract extraction / phacoemulsification with IOL under MAC of the left eye on 03/10/2024, followed by the same procedure on the right eye a couple of weeks later on 03/24/2024 Patient states that she currently feels okay She denies any headaches or dizziness Denies any chest pains,no increased SOB No nausea/vomiting, no abdominal pain No change in bowel habits noted PFSH Medical History Anticoagulated on Coumadin Petechial rash Petechial rash Enlarged RV (right ventricle) Tricuspid regurgitation Alzheimer's disease Irritable bowel syndrome (IBS) Osteoporosis Chronic kidney disease (CKD), stage III (moderate) Pure hypercholesterolemia Hypothyroidism Chronic atrial fibrillation Mitral regurgitation CHF due to valvular disease Surgical History Status post implantation of mitral valve leaflet clip (~06/16/20) Hx of tubal ligation Hx of left mastectomy No pertinent past surgical history Family History Father Hx of blood clots Mother Hx of blood clots Social History Housing: House Alcohol intake: never Patient Tobacco Use Status: Never used Tobacco e-Cigarette/Vaping Use: Never Used Second Hand Smoke Exposure: No service: No Current occupational status: retired Cognitive needs: No Hearing needs: No Vision needs: Yes Questionnaire Thrive Questionnaire Date Thrive assessed: 12/12/23 ALTON-7 AMB Questionnaire ALTON-7 Date ALTON - 7 assessed: 12/12/23 Source: Developed by Drs. Freedom Yung, Radha Herrera, Adi Anand and colleagues, with an educational alejandro from [employer]. Review of Systems Const Denies difficulty sleeping, Denies fatigue, Denies fever(s) and Denies headache(s) Eyes Reports blurry vision ENT Denies dysphagia, Denies dizziness, Denies otalgia, Denies headache(s), Denies neck pain, Denies odynophagia and Denies sore throat Card Denies chest pain, Denies palpitations and Denies dyspnea Resp Denies cough, Denies dyspnea and Denies wheezing GI Denies abdominal pain, Denies constipation, Denies dysphagia, Denies heartburn, Denies diarrhea, Denies nausea, Denies odynophagia and Denies vomiting Denies difficulty voiding, Denies nocturia, Denies dysuria and Denies urinary urgency Musc Denies neck pain Skin/Breast Denies rash Neuro Denies confusion, Denies dizziness, Denies headache(s) and Reports memory loss (stable) Psych Denies confusion and Reports memory loss (stable) Endo Denies fatigue and Denies palpitations Aller/Immun Denies wheezing Physical exam (Primary Care) Vital Signs: Last Vital Signs Pulse 61 02/25/24 11:23 BP 110/66 02/25/24 11:23 Pulse Ox 95 02/25/24 11:23 Oxygen Delivery Method Room Air 02/25/24 11:23 BMI result Body Mass Index 15.8 Tobacco/Smoking Status: Tobacco use Status Tobacco use date assessed 02/25/24 02/25/24 11:30 Patient Tobacco Use Status Never used Tobacco 02/25/24 11:30 e-Cigarette/Vaping Use Never Used 02/25/24 11:30 Thrive Assessment: Date of Thrive Assessment Date Thrive assessed 12/12/23 02/25/24 11:30 Const General: comfortable, no acute distress and alert; No confusion Orientation/consciousness: No confusion HENMT Throat: Yes posterior oropharynx normal and Yes tonsils normal (no TP congestion noted) Neck Neck: Yes no lymphadenopathy and Yes supple Thyroid: Thyroid normal Resp Auscultation: clear to auscultation bilaterally, no rales and no wheezes Cardio Rate: regular rate Rhythm: abnormal rhythm irregularly irregular Heart sounds: Murmur heart sound present systolic III/, at the apex and at the left sternal border GI Palpation (GI): Soft to palpation and nontender Auscultation: normal bowel sounds General: Yes no CVA tenderness Back/Spine/Pelvis Back: no CVA tenderness Thoracic/Lumbar Spine: No lumbar spinal tenderness Skin Rashes: no rashes Neuro General: No confusion Extrem General: Yes no clubbing, cyanosis or edema Assessment and Plan Assessment & Plan (1) Preoperative examination: Code(s): Z01.818 - Encounter for other preprocedural examination Plan: Patient presents with acceptable risks and currently appears to be medically optimized for planned low cardiac-risk procedure(s) She has not had any significant pulmonary or cardiac symptoms lately - is still in AF but has been rate-controlled for a while now (2) Cataracts, bilateral: Code(s): H26.9 - Unspecified cataract Qualifiers: Cataract type: age-related Age-related cataract type: unspecified Qualified Code(s): H25.9 - Unspecified age-related cataract Plan: She is presently scheduled for cataract extraction / phacoemulsification with IOL under MAC of the left eye on 03/10/2024, followed by the same procedure on the right eye a couple of weeks later on 03/24/[address] Nelson West (3) Chronic atrial fibrillation: Code(s): I48.20 - Chronic atrial fibrillation, unspecified Plan: Patient is currently in atrial fibrillation but she remains rate-controlled on Metoprolol ER 100 mg QD Continue Apixaban 2.5 mg BID - is advised to just skip her dose on the night before her procedure and to resume her Eliquis at her usual dose immediately following her cataract surgery Follow up with cardiology as scheduled (4) CHF due to valvular disease: Code(s): I50.9 - Heart failure, unspecified; I38 - Endocarditis, valve unspecified Plan: Compensated - her cardiac symptoms have improved a lot since her MitraClip procedure a few years ago in May 2020 Echocardiogram done a few years ago (prior to her MitraClip procedure) showed ejection fraction to be between 60-65% but with severe mitral regurgitation, severe tricuspid regurgitation and biatrial enlargement Repeat echocardiogram on 08/02/22 revealed normal LV systolic function, moderately increased right ventricular size with reduced? systolic function, severe biatrial enlargement, MitraClip in place, with mild mitral regurgitation, mild aortic regurgitation, moderate to severe? tricuspid regurgitation with mildly elevated right atrial pressures with normal RV systolic pressure. No gross pericardial effusion?is seen Reinforced fluid restriction Continue Furosemide 40 mg alternating with 20 mg Q AM Follow up with Cardiology as scheduled (5) Mitral regurgitation: Comment: Status post MitraClip Code(s): I34.0 - Nonrheumatic mitral (valve) insufficiency Qualifiers: Cardiac valve disease etiology: nonrheumatic Qualified Code(s): I34.0 - Nonrheumatic mitral (valve) insufficiency Plan: S/P MitraClip procedure at [facility] on 06/16/2020, followed by cardiac rehab, which patient states has helped a lot with her symptoms Follow-up with cardiology as scheduled (6) Pure hypercholesterolemia: Code(s): E78.00 - Pure hypercholesterolemia, unspecified Plan: Reinforced low cholesterol diet Patient was on Simvastatin in the past but this was discontinued during her hospitalization last year and she prefers not to go back on it if possible Will recheck her labs and fasting lipids as scheduled next month for follow-up (7) Hypothyroidism: Code(s): E03.9 - Hypothyroidism, unspecified Qualifiers: Hypothyroidism type: acquired Qualified Code(s): E03.9 - Hypothyroidism, unspecified Plan: Continue Levothyroxine 75 mcg QD (8) Chronic kidney disease (CKD), stage III (moderate): Code(s): N18.30 - Chronic kidney disease, stage 3 unspecified Qualifiers: Chronic kidney disease stage 3 subtype: stage 3a (GFR 45-59) Qualified Code(s): N18.31 - Chronic kidney disease, stage 3a Plan: Stable -? will continue to monitor her renal function regularly (9) Osteoporosis: Code(s): M81.0 - Age-related osteoporosis without current pathological fracture Qualifiers: Osteoporosis type: age-related Presence of current pathological fracture: without current pathological fracture Qualified Code(s): M81.0 - Age-related osteoporosis without current pathological fracture Plan: Repeat BMD back on 01/27/2021 revealed about a 10% decline in her overall BMD from her previous scan in July 2016 Patient was referred to and seen by Endocrinology recently and recommended starting on Prolia but patient decided against taking any Rx due to their potential side effects Continue Caltrate 600+ D tablet chewable, 600-400 mg-unit 1 tablet BID Follow-up with endocrinology as scheduled (10) Irritable bowel syndrome (IBS): Code(s): K58.9 - Irritable bowel syndrome without diarrhea Qualifiers: Irritable bowel syndrome type: unspecified Qualified Code(s): K58.9 - Irritable bowel syndrome without diarrhea Plan: Follow up with GI (Dr. Tolliver)? as scheduled She has been taking Align (as recommended by Dr. Tolliver) and states that this has helped a lot States that Dr. Tolliver recommended no further intervention or procedures -? last colonoscopy in 2008 was normal (11) Alzheimer's disease: Code(s): G30.9 - Alzheimer's disease, unspecified; F02.80 - Dementia in other diseases classified elsewhere, unspecified severity, without behavioral disturbance, psychotic disturbance, mood disturbance, and anxiety Plan: Continue Donepezil 5 mg Q HS Follow-up with Neurology as scheduled Plan Patient currently appears medically optimized and has no contraindications to undergo planned low cardiac-risk procedures - she is medically cleared for her upcoming cataract surgeries with Dr. West on 03/10/2024 and 03/24/2024 She is reminded to just hold her nighttime dose of Eliquis the day before her procedure(s) and to resume it immediately following her surgery To return as scheduled next month for her annual Medicare Wellness Exam and follow up visit Coding Level of Care Code Est Pt Level 3 (60334) Diagnoses Preoperative examination Z01.818 Age-related cataract of both eyes, unspecified age-related cataract type H25.9 Cataract type: age-related Age-related cataract type: unspecified Chronic atrial fibrillation I48.20 CHF due to valvular disease I50.9; I38 Nonrheumatic mitral valve regurgitation I34.0 Cardiac valve disease etiology: nonrheumatic Pure hypercholesterolemia E78.00 Acquired hypothyroidism E03.9 Hypothyroidism type: acquired Stage 3a chronic kidney disease N18.31 Chronic kidney disease stage 3 subtype: stage 3a (GFR 45-59) Age-related osteoporosis without current pathological fracture M81.0 Osteoporosis type: age-related Presence of current pathological fracture: without current pathological fracture Irritable bowel syndrome, unspecified type K58.9 Irritable bowel syndrome type: unspecified Alzheimer's disease G30.9; F02.80
[2024-02-25 11:23] VITALS: BP 110/66; PULSE 61; O2SAT 95; BMI 15.8
== END 2024-02-25 11:50 | disposition home or self-care (01) ==
PROVIDERS: PCP Internal Medicine; Visit Provider Internal Medicine
DX: I48.20 Chronic atrial fibrillation, unspecified (principal); I50.9 Heart failure, unspecified; N18.31 Chronic kidney disease, stage 3a; G30.9 Alzheimer's disease, unspecified; F02.80 Dementia in other diseases classified elsewhere, unspecified severity, without behavioral disturbance, psychotic disturbance, mood disturbance, and anxiety; Z01.818 Encounter for other preprocedural examination; H25.9 Unspecified age-related cataract; I38 Endocarditis, valve unspecified; I34.0 Nonrheumatic mitral (valve) insufficiency; E78.00 Pure hypercholesterolemia, unspecified; M81.0 Age-related osteoporosis without current pathological fracture; E03.9 Hypothyroidism, unspecified
CPT/HCPCS: 99213

== ENCOUNTER 2024-03-10 08:24 | Day surgery (SDC) | payer MEDICARE, SELFPAY ==
[2024-03-06 09:27] VITALS: BMI 15.8
[2024-03-06 09:28] VITALS: BMI 15.8
[2024-03-10] MEDS: Tetracaine HCl/PF 0.5% Oph Sol 4 ML DROPS 1 DROP EYE-LEFT (09:19)
[2024-03-10] MEDS: Cyclopentolate 1 % Ophth Sol 2 ML DRPBTL 1 DROP EYE-LEFT ×3 (09:20→09:36)
[2024-03-10] MEDS: Tropicamide 1 % Ophth Sol 3 ML BTL 1 DROP EYE-LEFT ×3 (09:22→09:38)
[2024-03-10] MEDS: Ketorolac Tromethamine 0.5% Op 10 ML DROPS 1 DROP EYE-LEFT ×3 (09:24→09:40)
[2024-03-10] MEDS: Phenylephrine HCL 2.5% Oph SoL 2 ML BOTTLE 1 DROP EYE-LEFT ×3 (09:26→09:42)
[2024-03-10] MEDS: Lactated Ringers 500 ML 50 ML IV (09:36)
[2024-03-10 09:37] VITALS: BP 136/82; PULSE 64; RESP 16; TEMP 37.1; O2SAT 98
--- NOTE | 2024-03-10 10:00 | HO.ANESPROP2 ---
Documented by User: Danica Baumann NP 03/06/24 14:26 HPI - Anesthesia Eval Consult details Narrative: 83yo F for Left Cataract Extraction IOL Insertion No previous cataract on record Eliquis for afib Follows [facility] cardiology [facility] Active Problems Active Problems: All Active Problems Cataracts, bilateral (Acute) Preoperative examination (Acute) Onycholysis of toenail (Acute) ASD (atrial septal defect) (Acute) Bacteriuria (Acute) Serum potassium elevated (Acute) Encounter for Medicare annual wellness exam (Acute) Hospital discharge follow-up (Acute) Current use of anticoagulant therapy (Acute) Anticoagulated on Coumadin (Acute) Status post implantation of mitral valve leaflet clip (Acute ~06/16/20) CHF due to valvular disease (Acute) Chronic atrial fibrillation (Acute) Hypothyroidism (Acute) Pure hypercholesterolemia (Acute) Chronic kidney disease (CKD), stage III (moderate) (Acute) Osteoporosis (Acute) Irritable bowel syndrome (IBS) (Acute) Alzheimer's disease (Acute) Tricuspid regurgitation (Acute) Enlarged RV (right ventricle) (Acute) Petechial rash (Acute) Petechial rash (Acute) Past Medical History Medical History (Updated 03/06/24 @ 09:34 by Duyen Quick, RN) Cataract of both eyes Anticoagulated on Coumadin Petechial rash Petechial rash Enlarged RV (right ventricle) Tricuspid regurgitation Alzheimer's disease Irritable bowel syndrome (IBS) Osteoporosis Chronic kidney disease (CKD), stage III (moderate) Pure hypercholesterolemia Hypothyroidism Chronic atrial fibrillation Mitral regurgitation CHF due to valvular disease Family History Family History Father Hx of blood clots Mother Hx of blood clots Surgical History Surgical History (Updated 03/10/24 @ 09:55 by Jessy Yo) Status post implantation of mitral valve leaflet clip (~06/16/20) Hx of tubal ligation Hx of left mastectomy Social History Social History Housing: House Alcohol intake: never Patient Tobacco Use Status: Never used Tobacco e-Cigarette/Vaping Use: Never Used Second Hand Smoke Exposure: No Advance Directives: No Advance Directives Information Provided: Yes Advance Directives on File: No service: No Current occupational status: retired Cognitive needs: No Hearing needs: No Vision needs: Yes Meds Allergies Allergy/AdvReac Type Severity Reaction Status Date / Time Sulfa (Sulfonamide Allergy Mild RASH Verified 03/10/24 09:15 Antibiotics) [Sulfa (Sulfonamides)] ciprofloxacin [Cipro] Allergy Unknown rash Verified 03/10/24 09:15 scallops Allergy Unknown Sick to Verified 03/10/24 09:15 the stomach Home Medications ?Medication ?Instructions ?Recorded ?Confirmed ?Last Taken ?Type amoxicillin 500 mg capsule 2,000 mg PO ONCE PRN 10/10/22 02/25/24 Unknown History Exam Height,Weight and Vital Signs: Height 5 ft 1 in Weight 38.011 kg Assessment and Plan Assessment Anesthesia Assessment: Chart Reviewed Documented by User: Adele Prater DO 03/10/24 10:05 HPI - Anesthesia Eval Consult details Narrative: 83yo F for Left Cataract Extraction IOL Insertion No previous cataract on record Eliquis for afib Follows [facility] cardiology. Hx of ASD with left to right shunt on echo 07/2023, mild to mod MR, and moderate TR. EF 55-60%. [facility] Past Medical History Medical History (Updated 03/06/24 @ 09:34 by Duyen Quick RN) Cataract of both eyes Anticoagulated on Coumadin Petechial rash Petechial rash Enlarged RV (right ventricle) Tricuspid regurgitation Alzheimer's disease Irritable bowel syndrome (IBS) Osteoporosis Chronic kidney disease (CKD), stage III (moderate) Pure hypercholesterolemia Hypothyroidism Chronic atrial fibrillation Mitral regurgitation CHF due to valvular disease Family History Family History Father Hx of blood clots Mother Hx of blood clots Family history of problems with anesthesia: No Surgical History Surgical History (Updated 03/10/24 @ 09:55 by Jessy Yo) Status post implantation of mitral valve leaflet clip (~06/16/20) Hx of tubal ligation Hx of left mastectomy History of Problems with Anesthesia: No Social History Social History Housing: House Alcohol intake: never Patient Tobacco Use Status: Never used Tobacco e-Cigarette/Vaping Use: Never Used Second Hand Smoke Exposure: No Advance Directives: No Advance Directives Information Provided: Yes Advance Directives on File: No service: No Current occupational status: retired Cognitive needs: No Hearing needs: No Vision needs: Yes Meds Allergies Allergy/AdvReac Type Severity Reaction Status Date / Time Sulfa (Sulfonamide Allergy Mild RASH Verified 03/10/24 09:15 Antibiotics) [Sulfa (Sulfonamides)] ciprofloxacin [Cipro] Allergy Unknown rash Verified 03/10/24 09:15 scallops Allergy Unknown Sick to Verified 03/10/24 09:15 the stomach Home Medications ?Medication ?Instructions ?Recorded ?Confirmed ?Last Taken ?Type amoxicillin 500 mg capsule 2,000 mg PO ONCE PRN 10/10/22 02/25/24 Unknown History Exam Exam Date and Time: March 10, 2024 1000 Height,Weight and Vital Signs: Height 5 ft 1 in Weight 38.011 kg Vital Signs Temperature 98.8 F 03/10/24 09:37 Pulse Rate 64 03/10/24 09:37 Respiratory Rate 16 03/10/24 09:37 Blood Pressure 136/82 03/10/24 09:37 Pulse Oximetry 98 03/10/24 09:37 Oxygen Delivery Method Room Air 03/10/24 09:37 Temperature 98.8 F 03/10/24 09:37 Pulse Rate 64 03/10/24 09:37 Respiratory Rate 16 03/10/24 09:37 Blood Pressure 136/82 03/10/24 09:37 Pulse Oximetry 98 03/10/24 09:37 Oxygen Delivery Method Room Air 03/10/24 09:37 Airway Mallampati Class: II TM Dist: >3cm Neck ROM: Full Loose/Missing/Broken Teeth: No (patient denies any loose or broken teeth) Heart: S1S2 Lungs: CTAB Assessment and Plan Assessment Anesthesia Assessment: Anesthesia Plan Discussed and Chart Reviewed Final Anesthetic Review Family History of Problems with Anesthesia: No History of Problems with Anesthesia: No NPO: Yes ASA Class: III Final Preanesthetic Review: No Changes in Pt Med Stat, Meds/Allgs Chart Reviewed, Consent Obtained/Reviewed and Anes Risks/Benef Reviewed Patient Risk: High Procedure Risk: Low Anesthetic Plan Anesthetic Plan: MAC: and Agree w/ Assess. and Plan Disposition: Standard PACU
--- NOTE | 2024-03-10 10:21 | MHC.SHP ---
Pre-Procedural Eval Section A - 24 Hr Update-Section A only Date of Service: 03/10/24 The patient is an INPATIENT: No Changes since office visit: No Cold of Flu in the past 2 weeks, No New Medical Problems, No Changes in Medication and No Patient answered all questions The patient has been examined within 24 hours of the surgical procedure. The History & Physical has been completed within 30 days and I have reviewed it.: Yes Section B - Complete if H&P > 30 days Chief Complaint: Age-related nuclear cataract, left eye Allergies: Allergies Allergy/AdvReac Type Severity Reaction Status Date / Time Sulfa (Sulfonamide Allergy Mild RASH Verified 03/10/24 09:15 Antibiotics) [Sulfa (Sulfonamides)] ciprofloxacin [Cipro] Allergy Unknown rash Verified 03/10/24 09:15 scallops Allergy Unknown Sick to Verified 03/10/24 09:15 the stomach Plan Diagnosis/Plan: Unchanged I have reviewed the history and physical and performed a pertinent physical examination on my patient. No changes have occurred unless specified. Time Spent With Patient Time: Total time managing care of this patient today ____ minutes.
--- NOTE | 2024-03-10 10:21 | HO.PNOPHT ---
Ophthalmology Procedure Procedure Date of Service: 03/10/24 Ophthalmology Viscoelastic: Healon Duet Dual Pack Pro Ophthalmology Lenses: IOL Acrysof MP - MA60AC (17.5) Procedure Notes: PREOPERATIVE DIAGNOSIS: Decreased visual acuity left eye secondary to cataract POSTOPERATIVE DIAGNOSIS: Same PROCEDURE: Left cataract extraction with intraocular lens insertion SURGEON: Nelson Delgado M.D. ANESTHESIA: Topical/MAC ESTIMATED BLOOD LOSS: None COMPLICATIONS: None After obtaining informed consent, the patient was brought to the operation room suite and placed in the supine position. After adequate sedation per anesthesia, topical drops of Tetracaine were given to the left eye. The eye was then prepped and draped in the usual sterile fashion. The operating room microscope was then positioned over the operative eye and a lid speculum placed. A paracentesis was created. Viscoelastic was then instilled into the anterior chamber. A three plane incision was then created temporally, utilizing a 2.85 mm keratome. Capsulotomy forceps were then utilized to create a circular tear capsulotomy. Hydrodissection and hydrodelineation were carried out until adequate mobilization of the nucleus occurred. Phacoemulsification was then utilized to remove the dense central nucleus followed by removal of the cortical material utilizing the automated aspiration irrigation unit. Viscoat elastic was instilled into the posterior capsular bag followed by placement of a posterior chamber intraocular lens without difficulty. The residual Viscoat elastic was then removed utilizing the automated IA machine. The wound was check and found to be watertight. The patient tolerated the procedure well and the lid speculum was removed. Intracameral injection of Vigamox 0.1 mL followed by a subtenon injection of Kenalog-40 0.2 mL were administered. The patient will be seen in the a.m.
[2024-03-10 10:27] LABS: Potassium 4.5 mmol/L (3.3-5.1)
[2024-03-10 10:54] VITALS: BP 144/83; PULSE 73; RESP 16; TEMP 36.6; O2SAT 100
== END 2024-03-10 11:01 | disposition home or self-care (01) ==
PROVIDERS: Anesthesiology; PCP Internal Medicine; Visit Provider Ophthalmology
PROC: (CPT 66985; principal; 2024-03-10 10:30)
DX: H25.12 Age-related nuclear cataract, left eye (principal); H54.7 Unspecified visual loss; F03.90 Unspecified dementia, unspecified severity, without behavioral disturbance, psychotic disturbance, mood disturbance, and anxiety; E07.9 Disorder of thyroid, unspecified; E78.00 Pure hypercholesterolemia, unspecified; I48.20 Chronic atrial fibrillation, unspecified; Z79.01 Long term (current) use of anticoagulants; Z79.899 Other long term (current) drug therapy; Z88.1 Allergy status to other antibiotic agents; Z88.2 Allergy status to sulfonamides
CPT/HCPCS: 66984; 36415; 84132; J3010; J3301; V2630

== ENCOUNTER 2024-03-24 08:11 | Day surgery (SDC) | payer MEDICARE, SELFPAY ==
[2024-03-06 10:22] VITALS: BMI 15.8
--- NOTE | 2024-03-20 13:42 | P.CONAN_ITS ---
Documented by User: Danica Baumann NP 03/20/24 13:44 HPI - Anesthesia Eval Consult details Narrative: 83yo F for Right Cataract Extraction IOL Insertion Left eye 03/10/24: Fent 50 Eliquis for afib Follow[facility]ology. Hx of ASD with left to right shunt on echo 07/2023, mild to mod MR, and moderate TR. EF 55-60%. [facility] Active Problems Active Problems: All Active Problems Cataracts, bilateral (Acute) Preoperative examination (Acute) Onycholysis of toenail (Acute) ASD (atrial septal defect) (Acute) Bacteriuria (Acute) Serum potassium elevated (Acute) Encounter for Medicare annual wellness exam (Acute) Hospital discharge follow-up (Acute) Current use of anticoagulant therapy (Acute) Anticoagulated on Coumadin (Acute) Status post implantation of mitral valve leaflet clip (Acute ~06/16/20) CHF due to valvular disease (Acute) Chronic atrial fibrillation (Acute) Hypothyroidism (Acute) Pure hypercholesterolemia (Acute) Chronic kidney disease (CKD), stage III (moderate) (Acute) Osteoporosis (Acute) Irritable bowel syndrome (IBS) (Acute) Alzheimer's disease (Acute) Tricuspid regurgitation (Acute) Enlarged RV (right ventricle) (Acute) Petechial rash (Acute) Petechial rash (Acute) Past Medical History Medical History Cataract of both eyes Anticoagulated on Coumadin Petechial rash Petechial rash Enlarged RV (right ventricle) Tricuspid regurgitation Alzheimer's disease Irritable bowel syndrome (IBS) Osteoporosis Chronic kidney disease (CKD), stage III (moderate) Pure hypercholesterolemia Hypothyroidism Chronic atrial fibrillation Mitral regurgitation CHF due to valvular disease Family History Family History Father Hx of blood clots Mother Hx of blood clots Family history of problems with anesthesia: No Surgical History Surgical History Status post implantation of mitral valve leaflet clip (~06/16/20) Hx of tubal ligation Hx of left mastectomy History of Problems with Anesthesia: No Social History Social History Housing: House Alcohol intake: never Patient Tobacco Use Status: Never used Tobacco e-Cigarette/Vaping Use: Never Used Second Hand Smoke Exposure: No Are you DNR?: No Advance Directives: No Advance Directives Information Provided: Yes service: No Current occupational status: retired Cognitive needs: No Hearing needs: No Vision needs: Yes Meds Allergies Allergy/AdvReac Type Severity Reaction Status Date / Time Sulfa (Sulfonamide Allergy Mild RASH Verified 03/24/24 09:33 Antibiotics) [Sulfa (Sulfonamides)] ciprofloxacin [Cipro] Allergy Unknown rash Verified 03/24/24 09:33 scallops Allergy Unknown Sick to Verified 03/24/24 09:33 the stomach Exam Height,Weight and Vital Signs: Height 5 ft 1 in Weight 37.875 kg Assessment and Plan Assessment Anesthesia Assessment: Chart Reviewed Final Anesthetic Review Family History of Problems with Anesthesia: No History of Problems with Anesthesia: No Documented by User: Amirah Houston MD 03/24/24 10:04 [facility] Past Medical History Medical History Cataract of both eyes Anticoagulated on Coumadin Petechial rash Petechial rash Enlarged RV (right ventricle) Tricuspid regurgitation Alzheimer's disease Irritable bowel syndrome (IBS) Osteoporosis Chronic kidney disease (CKD), stage III (moderate) Pure hypercholesterolemia Hypothyroidism Chronic atrial fibrillation Mitral regurgitation CHF due to valvular disease Family History Family History Father Hx of blood clots Mother Hx of blood clots Surgical History Surgical History Status post implantation of mitral valve leaflet clip (~06/16/20) Hx of tubal ligation Hx of left mastectomy Social History Social History Housing: House Alcohol intake: never Patient Tobacco Use Status: Never used Tobacco e-Cigarette/Vaping Use: Never Used Second Hand Smoke Exposure: No Are you DNR?: No Advance Directives: No Advance Directives Information Provided: Yes service: No Current occupational status: retired Cognitive needs: No Hearing needs: No Vision needs: Yes Meds Allergies Allergy/AdvReac Type Severity Reaction Status Date / Time Sulfa (Sulfonamide Allergy Mild RASH Verified 03/24/24 09:33 Antibiotics) [Sulfa (Sulfonamides)] ciprofloxacin [Cipro] Allergy Unknown rash Verified 03/24/24 09:33 scallops Allergy Unknown Sick to Verified 03/24/24 09:33 the stomach Exam Airway Mallampati Class: II TM Dist: >3cm Neck ROM: Limited Heart: a fib Lungs: cta Assessment and Plan Assessment Anesthesia Assessment: Anesthesia Plan Discussed Final Anesthetic Review NPO: Yes ASA Class: III Final Preanesthetic Review: No Changes in Pt Med Stat, Meds/Allgs Chart Reviewed, Consent Obtained/Reviewed and Anes Risks/Benef Reviewed Patient Risk: Intermediate Procedure Risk: Low Anesthetic Plan Anesthetic Plan: MAC: Disposition: Standard PACU
[2024-03-24 09:42] VITALS: BMI 15.9
[2024-03-24 09:51] VITALS: BP 126/77; PULSE 63; RESP 18; TEMP 36.2; O2SAT 96; BMI 15.9
[2024-03-24] MEDS: Lactated Ringers 500 ML 50 ML IV (10:16)
[2024-03-24] MEDS: Tetracaine HCl/PF 0.5% Oph Sol 4 ML DROPS 1 DROP EYE-RIGHT ×2 (10:17→10:18)
[2024-03-24] MEDS: Tropicamide 1 % Ophth Sol 3 ML BTL 1 DROP EYE-RIGHT ×3 (10:18→10:23)
[2024-03-24] MEDS: Phenylephrine HCL 2.5% Oph SoL 2 ML BOTTLE 1 DROP EYE-RIGHT ×3 (10:18→10:22)
[2024-03-24] MEDS: Ketorolac Tromethamine 0.5% Op 10 ML DROPS 1 DROP EYE-RIGHT ×3 (10:18→10:23)
[2024-03-24] MEDS: Cyclopentolate 1 % Ophth Sol 2 ML DRPBTL 1 DROP EYE-RIGHT ×3 (10:19→10:23)
--- NOTE | 2024-03-24 10:42 | MHC.SHP ---
Pre-Procedural Eval Section A - 24 Hr Update-Section A only Date of Service: 03/24/24 The patient is an INPATIENT: No Changes since office visit: No Cold of Flu in the past 2 weeks, No New Medical Problems, No Changes in Medication and No Patient answered all questions The patient has been examined within 24 hours of the surgical procedure. The History & Physical has been completed within 30 days and I have reviewed it.: Yes Section B - Complete if H&P > 30 days Chief Complaint: Age-related nuclear cataract, right eye Allergies: Allergies Allergy/AdvReac Type Severity Reaction Status Date / Time Sulfa (Sulfonamide Allergy Mild RASH Verified 03/24/24 09:33 Antibiotics) [Sulfa (Sulfonamides)] ciprofloxacin [Cipro] Allergy Unknown rash Verified 03/24/24 09:33 scallops Allergy Unknown Sick to Verified 03/24/24 09:33 the stomach Plan Diagnosis/Plan: Unchanged I have reviewed the history and physical and performed a pertinent physical examination on my patient. No changes have occurred unless specified. Time Spent With Patient Time: Total time managing care of this patient today ____ minutes.
--- NOTE | 2024-03-24 10:43 | P.PCNO_ITS ---
Ophthalmology Procedure Procedure Date of Service: 03/24/24 Ophthalmology Lenses: IOL Acrysof MP - [id number] (18.5) Procedure Notes: PREOPERATIVE DIAGNOSIS: Decreased visual acuity right eye secondary to cataract POSTOPERATIVE DIAGNOSIS: Same PROCEDURE: Right cataract extraction with intraocular lens insertion SURGEON: Nelson Delgado M.D. ANESTHESIA: Topical/MAC ESTIMATED BLOOD LOSS: None COMPLICATIONS: None After obtaining informed consent, the patient was brought to the operating room suite and placed in the supine position. After adequate sedation per anesthesia, topical drops of Tetracaine were given to the right eye. The eye was then prepped and draped in the usual sterile fashion. The operating room microscope was then positioned over the operative eye and a lid speculum placed. A paracentesis was created. Viscoelastic was then instilled into the anterior chamber. A three plane incision was then created temporally, utilizing a 2.85 mm keratome. Capsulotomy forceps were then utilized to create a circular tear capsulotomy. Hydrodissection and hydrodelineation were carried out until adequate mobilization of the nucleus occurred. Phacoemulsification was then utilized to remove the dense central nucleus followed by removal of the cortical material utilizing the automated aspiration irrigation unit. Viscoelastic was instilled into the posterior capsular bag followed by placement of a posterior chamber intraocular lens without difficulty. The residual Viscoelastic was then removed utilizing the automated IA machine. The wound was checked and found to be watertight. The patient tolerated the procedure well and the lid speculum was removed. Intracameral injection of Viga mox 0.1 mL followed by a subtenon injection of Kenalog-40 0.2 mL were administered. The patient will be seen in the a.m.
[2024-03-24 11:08] VITALS: BP 140/69; PULSE 52; RESP 16; TEMP 36.6; O2SAT 96
== END 2024-03-24 11:27 | disposition home or self-care (01) ==
PROVIDERS: PCP Internal Medicine; Visit Provider Ophthalmology
PROC: (CPT 66985; principal; 2024-03-24 11:00)
DX: H25.11 Age-related nuclear cataract, right eye (principal); H54.7 Unspecified visual loss; E03.9 Hypothyroidism, unspecified; E78.00 Pure hypercholesterolemia, unspecified; N18.30 Chronic kidney disease, stage 3 unspecified; I48.20 Chronic atrial fibrillation, unspecified; I50.9 Heart failure, unspecified; I38 Endocarditis, valve unspecified; I34.0 Nonrheumatic mitral (valve) insufficiency; G30.9 Alzheimer's disease, unspecified; F02.80 Dementia in other diseases classified elsewhere, unspecified severity, without behavioral disturbance, psychotic disturbance, mood disturbance, and anxiety; M81.0 Age-related osteoporosis without current pathological fracture; Z79.01 Long term (current) use of anticoagulants; Z79.899 Other long term (current) drug therapy; Z88.1 Allergy status to other antibiotic agents; Z88.2 Allergy status to sulfonamides; Z98.890 Other specified postprocedural states
CPT/HCPCS: 66984; J3010; J3301; V2630

== ENCOUNTER 2024-03-31 08:19 | Outpatient (REF) | payer MEDICARE, SELFPAY ==
[2024-03-31 10:09] LABS: MANUAL DIFF FLAG NO
[2024-03-31 10:18] LABS: Basophils Percent Auto 0.6 % (0-2); Eosinophils Absolute Auto 0.1 X10*3/uL (0.0-0.4); Eosinophils Percent Auto 2.1 % (0-4); Hematocrit 41.7 % (37.0-47.0); Hemoglobin 13.5 g/dl (12.0-16.0); Imm Gran Abs Auto 0.02 X10*3/uL (0.00-0.03); Imm Gran Pct Auto 0.4 % (0.0-0.4); Lymphocytes Percent Auto 20.6 % (20-40); Mean Corpuscular HGB Conc 32.4 g/dl (31.0-35.0); Mean Corpuscular Hemoglobin 32.6 pg (27.0-33.0); Mean Corpuscular Volume 100.7 fL (80.0-98.0); Monocytes Absolute Auto 0.5 X10*3/uL (0.1-1.2); Monocytes Percent Auto 11.3 % (2-11); Neutrophils Absolute Auto 3.1 x10*3/uL (2.0-8.3); Platelet Count 176 X10*3/uL (160-400); Red Blood Count 4.14 X10*6/uL (4.20-5.50); Red Cell Distribution Width 13.5 % (11.0-16.0); White Blood Count 4.8 X10*3/uL (4.8-10.8)
[2024-03-31 10:53] LABS: Alanine Aminotransferase 36 U/L (0-31); Alkaline Phosphatase 81 U/L (39-117); Anion Gap 6 (12-20); Aspartate Amino Transferase 42 U/L (5-31); Bilirubin Total 1.1 mg/dL (0.0-1.0); Blood Urea Nitrogen 45 mg/dL (9-16); Calcium 9.2 mg/dL (8.4-10.2); Carbon Dioxide 34 mmol/L (22-29); Chloride 104 mmol/L (96-108); Cholesterol 185 mg/dL (<200); Estimated Glomerular Filt Rate 50; Glucose Fasting 100 mg/dL (60-99); HDL Cholesterol 58 mg/dL (>40); LDL Cholesterol Calculated 107 mg/dL (<100); Potassium 4.8 mmol/L (3.3-5.1); Sodium 139 mmol/L (135-145); Total Protein 6.8 g/dL (6.5-8.0); Triglycerides 103 mg/dL (<150)
[2024-03-31 10:57] LABS: Free T4 (Free Thyroxine) 1.28 ng/dL (0.71-1.85); Thyroid Stimulating Hormone 1.69 uIU/mL (0.32-4.0); Vitamin D 25-OH Total 62.9 ng/mL (>30)
[2024-03-31 11:12] LABS: Folate 10.4 ng/mL (> or = 4.0); Vitamin B12 574 pg/mL (200-900)
== END 2024-03-31 08:20 | disposition home or self-care (01) ==
LOC: HO.HMGCLDS 08:19
PROVIDERS: PCP Internal Medicine; Visit Provider Internal Medicine
DX: E03.9 Hypothyroidism, unspecified (principal); E78.00 Pure hypercholesterolemia, unspecified; D64.9 Anemia, unspecified; E55.9 Vitamin D deficiency, unspecified; E53.8 Deficiency of other specified B group vitamins
CPT/HCPCS: 36415; 80053; 80061; 82306; 82607; 82746; 84439; 84443; 85025

== ENCOUNTER 2024-04-04 10:44 | Outpatient (AMB) | payer MEDICARE, SELFPAY ==
[2024-04-04 11:12] VITALS: BP 112/62; PULSE 60; RESP 16; BMI 15.1
--- NOTE | 2024-04-04 11:16 | A.OFFVIS_ITS ---
Intake Vital Signs 04/04/24 11:12 04/04/24 11:25 Height 5 ft 1 in Weight 80 lb BMI 15.1 15.1 BP 112/62 Blood Pressure Location Lt brachial Position Sitting Respiration 16 Pulse 60 Pulse Source Palpation Intake Visit Reasons: SWV [id number] & AF, hyperlipidemia, hypothyroidism Allergies Sulfa (Sulfonamide Antibiotics) [Sulfa (Sulfonamides)] Allergy (Mild, Verified 04/04/24 12:02) RASH ciprofloxacin [Cipro] Allergy (Unknown, Verified 04/04/24 12:02) rash scallops Allergy (Unknown, Verified 04/04/24 12:02) Sick to the stomach Medication List - Last Reconciled 04/04/24 by Darrian Proctor MD apixaban (Eliquis) 2.5 mg PO BID apixaban (Eliquis) 2.5 mg PO BID cholecalciferol (vitamin D3) 25 mcg PO DAILY 90 days donepezil 10 mg PO DAILY 90 days furosemide 20 mg orally One tablet daily except Sunday and Sunday 2 tablets; levothyroxine 75 mcg PO DAILY 90 days levothyroxine 75 mcg PO DAILY 90 days metoprolol succinate ER 100 mg PO DAILY 90 days metoprolol succinate ER 100 mg PO DAILY 90 days HPI SWV [id number] & AF, hyperlipidemia, hypothyroidism HPI Details Patient comes in today for her Annual Medicare Wellness Exam AND follow up visit States that she feels okay Her daughter states that she is still forgetful at times but her cognition has not gotten any worse (no changes) since her last visit She denies any headaches or dizziness Denies any chest pains, no increased SOB No nausea/vomiting, no abdominal pain No change in bowel habits noted Needs a few of her Rx refilled She had her follow up labs done a few days ago - to discuss her results IPPE/AWV: c/o of Annual Wellness Visit, subsequent visit. Medical / Social History Reviewed Past Medical History Yes . [place] of Care / Care Team list updated Yes . Surgical/Hospitalization History Yes . Current Medications (including OTC and supplements) Yes . Family History Yes . Tobacco Control form Yes . AUDIT-C (Alcohol use) form Yes . Illicit drug use in Social History Yes . Current diagnosis of depression? No Appropriate PHQ2/PHQ9 completed Yes . Data entered by [employer] and reviewed by provider Home Safety Throw rugs? No Grab bars? No Raised toilet seats? No Working smoke detectors? Yes Working carbon monoxide detectors? Yes Data entered by [employer] and reviewed by provider Activities of Daily Living (ADLs) Difficulty bathing or showering? No Difficulty dressing? No Difficulty using the toilet? No Difficulty getting in and out of bed? No Difficulty walking? No Receives help from another person with any of the above tasks? No Instrumental Activities of Daily Living (IADLs) Uses the telephone without help Gets to places out of walking distance without help Goes shopping for groceries without help Prepares own meals without help Does own minor home maintenance without help Does own laundry without help Does own housework without help Manages own money without help Currently takes medications? Yes Takes medication without help End-of-Life Planning Discussed advance directive Yes Advance directive on file Discussed wishes expressed in advance directive agreed to following patient's wishes Fall Risk: Fall History Have you had any falls with injury in the past year? No . Have you had two or more falls in the past year? No . Fall Risk Assessment: No falls in the past year . HRA filled out by the patient, reviewed by Provider and scanned. REPLACED BY [facility] Medical History Cataract of both eyes Anticoagulated on Coumadin Petechial rash Petechial rash Enlarged RV (right ventricle) Tricuspid regurgitation Alzheimer's disease Irritable bowel syndrome (IBS) Osteoporosis Chronic kidney disease (CKD), stage III (moderate) Pure hypercholesterolemia Hypothyroidism Chronic atrial fibrillation Mitral regurgitation CHF due to valvular disease Surgical History Status post implantation of mitral valve leaflet clip (~06/16/20) Hx of tubal ligation Hx of left mastectomy Family History Father Hx of blood clots Mother Hx of blood clots Social History Housing: House Alcohol intake: never Patient Tobacco Use Status: Never used Tobacco e-Cigarette/Vaping Use: Never Used Second Hand Smoke Exposure: No service: No Current occupational status: retired Cognitive needs: No Hearing needs: No Vision needs: Yes Questionnaire Medicare Wellness Checkup What is your age?: 79 or older What gender do you identify with?: female During the past 4 weeks, how much have you been bothered by emotional problems such as feeling anxious, depressed, irritable, sad or downhearted, and blue?: not at all During the past 4 weeks, has your physical & emotional health limited your social activities with family, friends, neighbors, or groups?: not at all During the past 4 weeks, how much bodily pain have you generally had?: no pain During the past 4 weeks, was someone available to help you if you needed & wanted help?: yes, quite a bit During the past 4 weeks, what was the hardest physical activity you could do for at least 2 minutes?: moderate Can you get to places out of walking distance without help? (For eg., can you travel alone on buses, taxis or drive your car?): No Can you go shopping for groceries or clothes without someone's help?: No Can you prepare your own meals?: Yes Can you do your housework without help?: Yes Because of any health problems, do you need the help of another person with your personal care needs such as eating, bathing, dressing or getting around the house?: No Can you handle your own money without help?: No During the past 4 weeks, how would you rate your health in general?: very good During the past 4 weeks how have things been going for you?: very well; could hardly better Are you having difficulties driving your car?: not applicable, I don't use a car Do you always fasten your seat belt when you are in a car?: yes, usually During past 4 weeks, have you been bothered by the following: never: Falling or dizzy when standing up, Trouble eating well?, Teeth or denture problems? and Problems using the telephone? and sometimes: Tiredness or fatigue? Have you fallen 2 or more times in the past year?: No Are you afraid of falling?: No Are you a smoker?: no During the past 4 weeks, how many drinks of wine, beer, or other alcoholic beverages did you have?: no alcohol at all Do you exercise for about 20 minutes 3 or more times a week?: yes, most of the time Have you been given information to help with the following?: no: Hazards in your house that might hurt you? and no: Keeping track of your medications? How often do you have trouble taking medicines the way you have been told to take them?: I always take medicine as prescribed How confident are you that you can control & manage most of your health problems?: somewhat confident What is your race?: White Mini Mental State Exam (MMSE) Orientation What is the (year) (season) (date) (day) (month)?: year, season and month Where are we (state) (county) (town or city) (hospital) (floor)?: state, county, town or city, hospital/clinic and floor Score Score: 8 Activity of Daily Living Bathing - sponge bath, tub bath or shower: receives no assistance (gets in/out by self, if usual bathing means Dressing - getting clothes from closets & drawers, including inner/outer garments & fasteners.: gets clothes & gets completely dressed without help Toileting - going to the 'toilet room' for urine/bowel elimination & cleaning self/arranging clothes: goes to toilet room, cleans self, arranges clothes without help Transfer: moves in & out of bed and chair without help (may use support object) Continence: controls urination/bowel movements completely by self Feeding: feeds self without help Total Score: 0 Information obtained from: patient Using telephone: independent Traveling: dependent Shopping: needs assistance Preparing meals: needs assistance Housework: needs assistance Taking medicine: needs assistance Managing money: dependent PHQ-9 Over the last 2 weeks, how often have you been bothered by any of the following problems? 1. Little interest or pleasure in doing things: not at all 2. Feeling down, depressed, or hopeless: not at all 3. Trouble falling or staying asleep, or sleeping too much: not at all 4. Feeling tired or having little energy: several days 5. Poor appetite or overeating: not at all 6. Feeling bad about yourself - or that you are a failure or have let yourself or your family down: not at all 7. Trouble concentrating on things, such as reading the newspaper or watching television: several days 8. Moving or speaking so slowly that other people could have noticed. Or the opposite - being so fidgety or restless that you have been moving around a lot more than usual: not at all 9. Thoughts that you would be better off or of hurting yourself in some way: not at all Total score: 2 Depression Screening Interpretation: Negative Depression Screening Done: Yes 97920 - PHQ-9 Billing: Yes Source: Developed by Drs. Freedom Yung, Radha Herrera, Adi Anand and colleagues, with an educational alejandro from [employer]. Review of Systems Const Denies difficulty sleeping, Denies fatigue, Denies fever(s) and Denies headache(s) ENT Denies dysphagia, Denies dizziness, Denies otalgia, Denies headache(s), Denies neck pain, Denies odynophagia and Denies sore throat Card Denies chest pain, Denies palpitations and Denies dyspnea Resp Denies cough, Denies dyspnea and Denies wheezing GI Denies abdominal pain, Denies constipation, Denies dysphagia, Denies heartburn, Denies diarrhea, Denies nausea, Denies odynophagia and Denies vomiting Denies difficulty voiding, Denies nocturia, Denies dysuria and Denies urinary urgency Musc Denies neck pain Skin/Breast Denies rash Neuro Denies confusion, Denies dizziness, Denies headache(s) and Reports memory loss (stable) Psych Denies confusion and Reports memory loss (stable) Endo Denies fatigue and Denies palpitations Aller/Immun Denies wheezing Physical Exam Vital Signs: Last Vital Signs Pulse 60 04/04/24 11:12 Resp 16 04/04/24 11:12 BP 112/62 04/04/24 11:12 BMI result Body Mass Index 15.1 IPPE/AWV: Balance Romberg Yes . Tandem walk Yes . Walk and Turn Yes . Rise from sit to stand Yes . Vision Corrective lens No Vision screen pass Hearing Whisper test pass . Urinary incont. no. EKG Not clinically necessary. Const General: no acute distress and alert; No confusion Orientation/consciousness: No confusion HEENT Ears: TM's normal bilaterally and EAC's normal Throat: Yes posterior oropharynx normal and Yes tonsils normal (no TP congestion noted) Neck Neck: Yes no lymphadenopathy and Yes supple Thyroid: Thyroid normal Resp Auscultation: clear to auscultation bilaterally, no rales and no wheezes Cardio Rate: regular rate Rhythm: abnormal rhythm irregularly irregular Heart sounds: Murmur heart sound present systolic III/, at the apex and at the left sternal border GI Palpation (GI): Soft to palpation and nontender Auscultation: normal bowel sounds General: Yes no CVA tenderness Back/Spine/Pelvis Back: no CVA tenderness Thoracic/Lumbar Spine: No lumbar spinal tenderness Skin Rashes: no rashes Neuro General: No confusion Extrem General: Yes no clubbing, cyanosis or edema Results Reviewed Results Reviewed: Laboratory Tests 03/31/24 08:31 WBC 4.8 Hgb 13.5 Hct 41.7 Plt Count 176 Sodium 139 Potassium 4.8 Creatinine 1.04 Estimated GFR 50 Fasting Glucose 100 H Calcium 9.2 D AST 42 H ALT 36 H Triglycerides 103 Cholesterol 185 LDL Cholesterol, Calc 107 H HDL Cholesterol 58 Vitamin B12 574 25-OH Vitamin D Total 62.9 TSH 1.69 Free T4 1.28 Assessment & Plan Assessment & Plan (1) Medicare annual wellness visit, subsequent: Code(s): Z00.00 - Encounter for general adult medical examination without abnormal findings Plan: HRA form reviewed, discussed and filled out with patient; form will be scanned into patient's chart YOBANI and CCP forms updated (2) Chronic atrial fibrillation: Code(s): I48.20 - Chronic atrial fibrillation, unspecified Plan: Patient remains rate-controlled currently on Metoprolol ER 100 mg QD Continue on long-term anticoagulation with Apixaban 2.5 mg BID (3) CHF due to valvular disease: Code(s): I50.9 - Heart failure, unspecified; I38 - Endocarditis, valve unspecified Plan: Symptoms have improved a lot since her MitraClip procedure in May 2020 Will continue to monitor patient closely Reinforced fluid restriction Continue on Furosemide 40 mg alternating with 20 mg once a day Echocardiogram done a few years ago (prior to her MitraClip procedure) showed ejection fraction to be between 60-65% but with severe mitral regurgitation, severe tricuspid regurgitation and biatrial enlargement Repeat echocardiogram on 08/02/22 revealed normal LV systolic function, moderately increased right ventricular size with reduced? systolic function, severe biatrial enlargement, MitraClip in place, with mild mitral regurgitation, mild aortic regurgitation, moderate to severe? tricuspid regurgitation with mildly elevated right atrial pressures with normal RV systolic pressure. No gross pericardial effusion?is seen Follow up with cardiology as scheduled (4) Mitral regurgitation: Comment: Status post MitraClip Code(s): I34.0 - Nonrheumatic mitral (valve) insufficiency Qualifiers: Cardiac valve disease etiology: nonrheumatic Qualified Code(s): I34.0 - Nonrheumatic mitral (valve) insufficiency Plan: S/P MitraClip procedure at [facility] on 06/16/2020, followed by cardiac rehab, which patient states helped a lot Follow-up with cardiology as scheduled (5) Hypothyroidism: Code(s): E03.9 - Hypothyroidism, unspecified Qualifiers: Hypothyroidism type: acquired Qualified Code(s): E03.9 - Hypothyroidism, unspecified Plan: Continue Levothyroxine 75 mcg once a day - Rx refilled Will recheck TFTs in 4 months for follow up (6) Pure hypercholesterolemia: Code(s): E78.00 - Pure hypercholesterolemia, unspecified Plan: Results of her labs done a few days ago reviewed and discussed with patient Reinforced low cholesterol diet Patient was on Simvastatin in the past but this was discontinued during her hospitalization earlier this year and she prefers not to go back on it if possible Will continue to monitor her fasting lipid profile and labs regularly -? will recheck labs in 4 months for follow-up (7) Chronic kidney disease (CKD), stage III (moderate): Code(s): N18.30 - Chronic kidney disease, stage 3 unspecified Qualifiers: Chronic kidney disease stage 3 subtype: stage 3a (GFR 45-59) Qualified Code(s): N18.31 - Chronic kidney disease, stage 3a Plan: Stable -? will continue to monitor renal function regularly (8) Osteoporosis: Code(s): M81.0 - Age-related osteoporosis without current pathological fracture Qualifiers: Osteoporosis type: age-related Presence of current pathological fracture: without current pathological fracture Qualified Code(s): M81.0 - Age- related osteoporosis without current pathological fracture Plan: Repeat BMD back in July 2016 showed a -16% decline in BMD compared to 2013 Patient was referred to and seen by Endocrinology recently and recommended starting on Prolia but patient decided against taking any Rx due to their potential side effects Continue Caltrate 600+ D tablet chewable, 600-400 mg - unit 1 tablet twice a day Follow-up with endocrinology as scheduled (9) Irritable bowel syndrome (IBS): Code(s): K58.9 - Irritable bowel syndrome without diarrhea Qualifiers: Irritable bowel syndrome type: unspecified Qualified Code(s): K58.9 - Irritable bowel syndrome without diarrhea Plan: Follow up with GI (Dr. Tolliver)? as scheduled She has been taking Align (as recommended by Dr. Tolliver) and states that the medication helps a lot States that Dr. Tolliver recommended no further intervention -? last colonoscopy in 2008 was normal (10) Alzheimer's disease: Code(s): G30.9 - Alzheimer's disease, unspecified; F02.80 - Dementia in other diseases classified elsewhere, unspecified severity, without behavioral disturbance, psychotic disturbance, mood disturbance, and anxiety Plan: Continue Donepezil 5 mg once a day at bedtime Follow-up with Neurology as scheduled Plan Follow up in 4 months Orders: Orders Complete Blood Count Auto Diff 4 Months D64.9 - Anemia, unspecified Comprehensive [place]. Panel Fast 4 Months E78.00 - Pure hypercholesterolemia, unspecified Lipid Panel 4 Months E78.00 - Pure hypercholesterolemia, unspecified Free T4 (Free Thyroxine) 4 Months E03.9 - Hypothyroidism, unspecified Vitamin B12 and Folate 4 Months E53.8 - Deficiency of other specified B group vitamins B Type Natriuretic Peptide 4 Months I50.9 - Heart failure, unspecified Thyroid Stimulating Hormone 4 Months E03.9 - Hypothyroidism, unspecified Vitamin D 25-OH Total 4 Months E55.9 - Vitamin D deficiency, unspecified UA CC w/rflx Micro + Cult 4 Months R30.0 - Dysuria Medications: Refilled apixaban (Eliquis) 2.5 mg PO BID 60 tabs 5RF I48.20 - Chronic atrial fibrillation, unspecified metoprolol succinate ER 100 mg PO DAILY 90 days 90 tabs 3RF I48.20 - Chronic atrial fibrillation, unspecified donepezil 10 mg PO DAILY 90 days 90 tabs 3RF levothyroxine 75 mcg PO DAILY 90 days 90 tabs 3RF E03.9 - Hypothyroidism, unspecified Quality Reporting (2019) Depression/Bipolar (159/160/161/177) PHQ-9: Total score: 2 Coding Level of Care Code Medicare Subsequent (G0439) Est Pt Level 4 (32593) Diagnoses Medicare annual wellness visit, subsequent Z00.00 Chronic atrial fibrillation I48.20 CHF due to valvular disease I50.9; I38 Nonrheumatic mitral valve regurgitation I34.0 Cardiac valve disease etiology: nonrheumatic Acquired hypothyroidism E03.9 Hypothyroidism type: acquired Pure hypercholesterolemia E78.00 Stage 3a chronic kidney disease N18.31 Chronic kidney disease stage 3 subtype: stage 3a (GFR 45-59) Age-related osteoporosis without current pathological fracture M81.0 Osteoporosis type: age-related Presence of current pathological fracture: without current pathological fracture Irritable bowel syndrome, unspecified type K58.9 Irritable bowel syndrome type: unspecified Alzheimer's disease G30.9; F02.80
[2024-04-04 11:25] VITALS: BMI 15.1
== END 2024-04-04 12:14 | disposition home or self-care (01) ==
PROVIDERS: PCP Internal Medicine; Visit Provider Internal Medicine
DX: Z00.00 Encounter for general adult medical examination without abnormal findings (principal); I48.20 Chronic atrial fibrillation, unspecified; I50.9 Heart failure, unspecified; N18.31 Chronic kidney disease, stage 3a; G30.9 Alzheimer's disease, unspecified; F02.80 Dementia in other diseases classified elsewhere, unspecified severity, without behavioral disturbance, psychotic disturbance, mood disturbance, and anxiety; I38 Endocarditis, valve unspecified; I34.0 Nonrheumatic mitral (valve) insufficiency; E03.9 Hypothyroidism, unspecified; E78.00 Pure hypercholesterolemia, unspecified; M81.0 Age-related osteoporosis without current pathological fracture; K58.9 Irritable bowel syndrome, unspecified
CPT/HCPCS: G0439

== ENCOUNTER 2024-04-29 10:55 | Emergency (ER) | payer MEDICARE, SELFPAY ==
--- NOTE | ~2024-04-29 | XR_ITS ---
EXAMINATION: XR HAND, RIGHT CLINICAL INFORMATION: Hand pain COMPARISON: None available. TECHNIQUE: PA, lateral, and oblique views of the right hand. FINDINGS: Marked degenerative changes are seen in the hand at the DIP joints and to a lesser extent at the PIP joints there is some minimal subluxation at the PIP joint of the third digit. Degenerative changes are seen at the MCP joints most marked in the first through third digits. Marked degenerative changes are seen at the CMC joint and the triscaphe joint. No chondrocalcinosis. No fractures. XR/XR hand RT min 3V IMPRESSION: Marked degenerative changes in the hand as described above. No acute finding. Electronically signed by: Eulalio Valdivia MD 04/29/2024 12:01 PM EDT
[2024-04-29 11:00] VITALS: BP 122/78; PULSE 65; RESP 19; TEMP 36.6; O2SAT 98; BMI 15.2
--- NOTE | 2024-04-29 11:01 | ED.GENADULT ---
HPI - General Adult General Chief complaint: Wound/Laceration Stated complaint: Infected cut R hand Time Seen by Provider: 04/29/24 11:29 Source: patient and RN notes reviewed Mode of arrival: ambulatory Limitations: no limitations History of Present Illness ED Provider: Zina Gamboa PA-C [facility] narrative: This is a 83-year-old female, with a past medical history of CHF, chronic atrial fibrillation, CKD stage 3, atrial fibrillation, mitral regurgitation, who presents emergency department with complaints of right hand wound. Patient is unsure how she got this wound however daughter noticed increased redness to the dorsum of her right hand. Patient has prophylactic antibiotics which she takes prior to dental procedures and daughter gave this to her this morning as she was concerned that this area has become infected. She states that the area of swelling has improved since she 1st noticed it. No fevers or chills. No other complaints or concerns at this time. complaint: Right hand redness Related Data Previous Rx's ?Medication ?Instructions ?Recorded cholecalciferol (vitamin D3) 25 25 mcg PO DAILY 90 days #90 caps 12/06/22 mcg (1,000 unit) capsule furosemide 20 mg tablet 20 mg PO .COMPLEX #120 tabs 03/03/24 apixaban 2.5 mg tablet (Eliquis) 2.5 mg PO BID #60 tabs 04/04/24 donepezil 10 mg tablet 10 mg PO DAILY 90 days #90 tabs 04/04/24 levothyroxine 75 mcg tablet 75 mcg PO DAILY 90 days #90 tabs 04/04/24 metoprolol succinate 100 mg 100 mg PO DAILY 90 days #90 tabs 04/04/24 tablet,extended release 24 hr cephalexin 250 mg capsule 250 mg PO BID 7 days #14 caps 04/29/24 Allergies Allergy/AdvReac Type Severity Reaction Status Date / Time Sulfa (Sulfonamide Allergy Mild RASH Verified 04/29/24 11:03 Antibiotics) [Sulfa (Sulfonamides)] ciprofloxacin [Cipro] Allergy Unknown rash Verified 04/29/24 11:03 scallops Allergy Unknown Sick to Verified 04/29/24 11:03 the stomach Review of Systems Review of Systems: Yes all other systems are reviewed and are negative Constitutional: Constitutional: Reports as per [facility] Past Medical History Medical History Cataract of both eyes Anticoagulated on Coumadin Petechial rash Petechial rash Enlarged RV (right ventricle) Tricuspid regurgitation Alzheimer's disease Irritable bowel syndrome (IBS) Osteoporosis Chronic kidney disease (CKD), stage III (moderate) Pure hypercholesterolemia Hypothyroidism Chronic atrial fibrillation Mitral regurgitation CHF due to valvular disease Surgical History Status post implantation of mitral valve leaflet clip (~06/16/20) Hx of tubal ligation Hx of left mastectomy Family History Family History Father Hx of blood clots Mother Hx of blood clots Social History Social History Housing: House Alcohol intake: never Patient Tobacco Use Status: Never used Tobacco e-Cigarette/Vaping Use: Never Used Second Hand Smoke Exposure: No Advance Directives Date on File: 08/11/22 service: No Current occupational status: retired Cognitive needs: No Hearing needs: No Vision needs: Yes Physical Exam ED Vital Signs: Vital Signs - 24 hr 04/29/24 11:00 04/29/24 13:28 Temperature 98 F 98 F Pulse Rate 65 65 Respiratory Rate 19 19 Blood Pressure 122/78 122/78 Pulse Oximetry 98 98 Oxygen Delivery Method Room Air Room Air BMI result Body Mass Index 15.2 Const General: cooperative, comfortable and no acute distress Orientation/consciousness: patient oriented x3 Limitations: no limitations [facility] Head: Yes normal to inspection, Yes normocephalic and Yes atraumatic Ears: hearing grossly normal bilaterally General nose exam: Normal external nose present Face and sinus: Yes normal facial exam Mouth: Normal oral and palatal mucosa present, oropharynx normal and moist mucous membranes Throat: Yes posterior oropharynx normal Eyes General: appearance normal, both eyes and all related structures Eyelids: Yes eyelids normal Conjunctivae: conjunctivae normal Sclerae: sclerae normal Pupils: Equal, round and reactive pupils present EOM: EOMs intact bilaterally Neck Neck: Yes normal visual inspection, Yes full ROM and Yes no lymphadenopathy Lymphatic: no lymphadenopathy noted Chest Chest palpation & inspection: normal inspection of the chest Resp Effort & Inspection: normal respiratory effort and able to speak in complete sentences Auscultation: clear to auscultation bilaterally, no crackles, no rales, no rhonchi and no wheezes Cardio Rate: regular rate Rhythm: regular rhythm Heart sounds: S1 normal heart sound present and S2 normal heart sound present GI Inspection: Yes normal to inspection Skin Other: Right hand, dorsal aspect overlying the MCP, there is a healed eschar noted with mild surrounding erythema, no warmth, no drainage, full range of motion of the digits without difficulty. Strong radial pulse. No lymphangitic streaking. General skin exam: no rashes or lesions noted Trauma: no lacerations or abrasions Wounds: no wounds Neuro General: patient oriented x3 and moves all extremities Cranial nerves: Yes Equal, round and reactive pupils present Extrem General: Yes normal to inspection Right upper extremity: normal to inspection Left upper extremity: normal to inspection Right lower extremity: normal to inspection Left lower extremity: normal to inspection Course Course Course Narrative: RME, this is a rapid medical exam performed by Ulises Guerra please refer to primary provider for complete H&P- 83 year old female presents for evaluation of right hand redness and swelling. She reports a small cut about a week ago to her right 3rd finger that is now red and inflamed. She is currently on Amoxicillin after a dental extraction. Plan for basic labs and x-ray Medications Administered Discontinued Medications Generic Name Dose Route Start Last Admin Trade Name Freq PRN Reason Stop Dose Admin Diphtheria/Tetanus/Acell Pertussis 0.5 ml 04/29/24 13:09 04/29/24 13:19 Diphth,Pertus(Acell),Tet Adult 0.5 Ml Syringe IM 04/29/24 13:10 0.5 ml .ONCE ONE Administration Medical Decision Making Medical Decision Making [facility] Narrative: This is a 83-year-old female who presents emergency department with concerns for skin infection. Patient is unsure how she received this however daughter gave her amoxicillin this morning as she has this for dental procedures. Area appears to be slightly erythematous, no warmth. Will treat with course of Keflex. She does have CKD, and her creatinine clearance is 21.3, therefore renal adjustment was indicated. Discussed strict return precautions. Area was outlined using skin marker. Patient understands and agrees with plan. Daughter understands, stable for discharge Differential Diagnosis Differential Diagnoses: The differential diagnosis associated with the presentation includes Cellulitis, contusion, sprain, strain, lymphangitis Lab Data [facility] Lab Attestation statement: I reviewed the patient's lab results. No leukocytosis, stable H&H, chemistry revealing creatinine of 1.17 and BUN of 34, similar to previous 04/29/24 11:40 04/29/24 11:40 Labs: Lab Results 04/29/24 Range/Units 11:40 WBC 4.8 (4.8-10.8) X10*3/uL RBC 4.24 (4.20-5.50) X10*6/uL Hgb 13.8 (12.0-16.0) g/dl Hct 42.5 (37.0-47.0) % MCV 100.2 H (80.0-98.0) fL MCH 32.5 (27.0-33.0) pg MCHC 32.5 (31.0-35.0) g/dl RDW 13.6 (11.0-16.0) % Plt Count 178 (160-400) X10*3/uL MPV 8.3 L (9.4-12.3) fL Immature Gran % (Auto) 0.4 (0.0-0.4) % Neut % (Auto) 66.0 (45-73) % Lymph % (Auto) 18.8 L (20-40) % [place] % (Auto) 11.1 H (2-11) % Eos % (Auto) 3.3 (0-4) % Baso % (Auto) 0.4 (0-2) % Lymph # (Auto) 0.9 L (1.2-4.9) X10*3/uL [place] # (Auto) 0.5 (0.1-1.2) X10*3/uL Eos # (Auto) 0.2 (0.0-0.4) X10*3/uL Baso # (Auto) 0.0 (0.0-0.2) X10*3/uL Abs Immat Gran (auto) 0.02 (0.00-0.03) X10*3/uL Absolute Neuts (auto) 3.2 (2.0-8.3) x10*3/uL Absolute Nucleated RBC 0.000 (0.0-0.012) X10*3/uL Nucleated RBC % (auto) 0.0 (0.0-0.2) /100WBC ESR 5 (0-20) MM/HR PT 13.4 H (11.1-13.3) SEC INR 1.1 (0.9-1.1) Sodium 139 (135-145) mmol/L Potassium 4.9 (3.3-5.1) mmol/L Chloride 102 (96-108) mmol/L Carbon Dioxide 31 H (22-29) mmol/L Anion Gap 11 L (12-20) BUN 34 H (9-16) mg/dL Creatinine 1.17 (0.5-1.4) mg/dL Estim Creat Clear Calc 21.3 Estimated GFR 44 Random Glucose 99 (60-115) mg/dL Calcium 9.6 (8.4-10.2) mg/dL C-Reactive Protein 0.24 (< or = 0.50) mg/dL Radiology Impression Discussion of test interpretation with radiology: I have reviewed the radiologist's reading. Radiologist Impression: XR/XR hand RT min 3V IMPRESSION: Marked degenerative changes in the hand as described above. No acute finding. Electronically signed by: Eulalio Valdivia MD 04/29/2024 12:01 PM EDT RP Dictated By: Eulalio Valdivia MD Chronic Conditions Patient?s care impacted by: Other (CKD) Discharge Plan Discharge Clinical Impression: Cellulitis of hand Patient Disposition: Home, Self-Care Instructions: Cellulitis (ED) Additional Instructions: You were seen in the emergency department due to a wound. This is starting to become infected, please take prescribed antibiotics as directed. Finish the entire course even if your symptoms improve. Watch for any signs of worsening infection including but not limited to increased redness spreading the on the outlined region, fevers, chills, worsening swelling. If any of these occur, please report back to the emergency room for re-evaluation. Prescriptions: New cephalexin 250 mg capsule 250 mg PO BID 7 Days Qty: 14 0RF No Action furosemide 20 mg tablet 20 mg PO .COMPLEX Qty: 120 5RF Rx Instructions: 20 mg orally One tablet daily except Sunday and Sunday 2 tablets; cholecalciferol (vitamin D3) 25 mcg (1,000 unit) capsule 25 mcg PO DAILY 90 Days Qty: 90 3RF Eliquis 2.5 mg tablet 2.5 mg PO BID Qty: 60 5RF donepezil 10 mg tablet 10 mg PO DAILY 90 Days Qty: 90 3RF levothyroxine 75 mcg tablet 75 mcg PO DAILY 90 Days Qty: 90 3RF metoprolol succinate 100 mg tablet extended release 24 hr 100 mg PO DAILY 90 Days Qty: 90 3RF Interventions: ED Discharge Assessment Last Done: 04/29/24 13:28 Discharge Date/Time: 04/29/24 13:29 Print Language: Colombian
[2024-04-29 11:44] LABS: MANUAL DIFF FLAG NO
[2024-04-29 11:46] LABS: Basophils Percent Auto 0.4 % (0-2); Eosinophils Absolute Auto 0.2 X10*3/uL (0.0-0.4); Eosinophils Percent Auto 3.3 % (0-4); Hematocrit 42.5 % (37.0-47.0); Hemoglobin 13.8 g/dl (12.0-16.0); Imm Gran Abs Auto 0.02 X10*3/uL (0.00-0.03); Imm Gran Pct Auto 0.4 % (0.0-0.4); Lymphocytes Absolute Auto 0.9 X10*3/uL (1.2-4.9); Lymphocytes Percent Auto 18.8 % (20-40); Mean Corpuscular HGB Conc 32.5 g/dl (31.0-35.0); Mean Corpuscular Hemoglobin 32.5 pg (27.0-33.0); Mean Corpuscular Volume 100.2 fL (80.0-98.0); Mean Platelet Volume 8.3 fL (9.4-12.3); Monocytes Absolute Auto 0.5 X10*3/uL (0.1-1.2); Monocytes Percent Auto 11.1 % (2-11); Neutrophils Absolute Auto 3.2 x10*3/uL (2.0-8.3); Platelet Count 178 X10*3/uL (160-400); Red Blood Count 4.24 X10*6/uL (4.20-5.50); Red Cell Distribution Width 13.6 % (11.0-16.0); White Blood Count 4.8 X10*3/uL (4.8-10.8)
[2024-04-29 11:51] LABS: INTERNATIONAL NORM RATIO 1.1 (0.9-1.1); Prothrombin Time 13.4 SEC (11.1-13.3)
[2024-04-29 11:58] LABS: Anion Gap 11 (12-20); Blood Urea Nitrogen 34 mg/dL (9-16); C Reactive Protein 0.24 mg/dL (< or = 0.50); Calcium 9.6 mg/dL (8.4-10.2); Carbon Dioxide 31 mmol/L (22-29); Chloride 102 mmol/L (96-108); Creatinine Clr Calc Pharmacy 21.3; Estimated Glomerular Filt Rate 44; Glucose Random 99 mg/dL (60-115); Potassium 4.9 mmol/L (3.3-5.1); Sodium 139 mmol/L (135-145)
[2024-04-29 12:25] LABS: Erythrocyte Sedimentation Rate 5 MM/HR (0-20)
[2024-04-29] MEDS: Diphth,Pertus(ACell),Tet Adult 0.5 ML SYRINGE IM (13:19)
[2024-04-29 13:28] VITALS: BP 122/78; PULSE 65; RESP 19; TEMP 36.6; O2SAT 98
== END 2024-04-29 13:29 | disposition home or self-care (01) ==
PROVIDERS: Physician Assistant; Emergency Provider Emergency Medicine; PCP Internal Medicine
DX: L03.113 Cellulitis of right upper limb (principal)
CPT/HCPCS: 36415; 73130; 80048; 85025; 85610; 85652; 86140; 90715; 99282

== ENCOUNTER 2024-05-01 12:42 | Inpatient (IN) | payer MEDICARE, SELFPAY ==
--- NOTE | ~2024-05-01 | XR_ITS ---
EXAMINATION: XR HAND, RIGHT CLINICAL INFORMATION: Cellulitis. Scratched by a cat. COMPARISON: Right hand radiographs dated 04/29/2024. TECHNIQUE: PA, lateral, and oblique views of the right hand. FINDINGS: There is no fracture. There is unchanged subluxation at the distal interphalangeal joint of the third digit. There are stable degenerative changes at the distal interphalangeal joints and at the metacarpophalangeal joints. There is mild mid hand soft tissue swelling. There is no radiopaque foreign object. XR/XR hand RT min 3V IMPRESSION: No acute osseous right hand abnormality. Stable degenerative changes. Mild soft tissue swelling. Electronically signed by: Chaitanya Arauz DO 05/01/2024 04:31 PM EDT
[2024-05-01 13:08] VITALS: BP 118/53; PULSE 59; RESP 20; TEMP 37; O2SAT 100; BMI 14.2
--- NOTE | 2024-05-01 15:12 | ED_ITS ---
HPI - General Adult General Chief complaint: Skin/Abscess/Foreign Body Stated complaint: Rash on hands Time Seen by Provider: 05/01/24 14:55 Source: patient Mode of arrival: ambulatory Limitations: no limitations History of Present Illness ED Provider: Melvin MARLEY HPI narrative: 83 year old female history of Alzheimer's disease, atrial fibrillation, CKD, mitral regurg, CHF, recently diagnosed with right hand cellulitis presents with worsening cellulitis despite antibiotics. She reports the antibiotics also made her break out in a rash. She reports redness, swelling and pain to hand have worsened. It started as a small scratch and it progressed to her whole hand being red, hot and slightly painful. Denies fevers and chills. Related Data Previous Rx's ?Medication ?Instructions ?Recorded cholecalciferol (vitamin D3) 25 25 mcg PO DAILY 90 days #90 caps 12/06/22 mcg (1,000 unit) capsule furosemide 20 mg tablet 20 mg PO .COMPLEX #120 tabs 03/03/24 apixaban 2.5 mg tablet (Eliquis) 2.5 mg PO BID #60 tabs 04/04/24 donepezil 10 mg tablet 10 mg PO DAILY 90 days #90 tabs 04/04/24 levothyroxine 75 mcg tablet 75 mcg PO DAILY 90 days #90 tabs 04/04/24 metoprolol succinate 100 mg 100 mg PO DAILY 90 days #90 tabs 04/04/24 tablet,extended release 24 hr cephalexin 250 mg capsule 250 mg PO BID 7 days #14 caps 04/29/24 Allergies Allergy/AdvReac Type Severity Reaction Status Date / Time Sulfa (Sulfonamide Allergy Mild RASH Verified 05/01/24 13:11 Antibiotics) [Sulfa (Sulfonamides)] ciprofloxacin [Cipro] Allergy Unknown rash Verified 05/01/24 13:11 scallops Allergy Unknown Sick to Verified 05/01/24 13:11 the stomach Review of Systems Review of Systems: Yes all other systems are reviewed and are negative PMFSH Past Medical History Attestation statement: The following information was validated with the patient. Source: old records reviewed and nursing notes reviewed Medical History Cataract of both eyes Anticoagulated on Coumadin Petechial rash Petechial rash Enlarged RV (right ventricle) Tricuspid regurgitation Alzheimer's disease Irritable bowel syndrome (IBS) Osteoporosis Chronic kidney disease (CKD), stage III (moderate) Pure hypercholesterolemia Hypothyroidism Chronic atrial fibrillation Mitral regurgitation CHF due to valvular disease Surgical History Status post implantation of mitral valve leaflet clip (~06/16/20) Hx of tubal ligation Hx of left mastectomy Family History Family History Father Hx of blood clots Mother Hx of blood clots Social History Social History Housing: House Alcohol intake: never Patient Tobacco Use Status: Never used Tobacco e-Cigarette/Vaping Use: Never Used Second Hand Smoke Exposure: No Advance Directives Date on File: 08/11/22 Do you have a plan to hurt others: No Plan service: No Current occupational status: retired Cognitive needs: No Hearing needs: No Vision needs: Yes Physical Exam ED Vital Signs: Vital Signs - 24 hr 05/01/24 13:08 Temperature 98.6 F Pulse Rate 59 Respiratory Rate 20 Blood Pressure 118/53 L Pulse Oximetry 100 Oxygen Delivery Method Room Air BMI result Body Mass Index 14.2 vss Appearance: Alert.? Oriented X3.? No acute distress.? Head: Normocephalic, atraumatic, no step-offs or deformities Eyes: Pupils equal, round and reactive to light.? ENT: Pharynx normal.? Neck: Normal inspection.? Neck supple.? CVS: Normal heart rate and rhythm.? Pulses normal.? Respiratory: No respiratory distress.? Breath sounds normal.? Abdomen: Soft and nontender.? Skin: Skin warm and dry.? Normal skin color.? Normal skin turgor.? + significant erythema and warmth to the dorsal aspect of right hand expanding beyond marked regions with marker. No discomfort with range of motion of right wrist or fingers. 2+ radial pulses equal bilateral. Normal distal sensation Extremities: No lower extremity edema.? No calf ttp. 5/5 strength to bilateral upper and lower extremities Neuro: Oriented X 3.? No motor deficit.? No sensory deficit. CN 2-12 intact Medical Decision Making Medical Decision Making MDM Narrative: 83-year-old female presents with worsening cellulitis as well as drug rash. Physical exam + significant erythema and warmth to the dorsal aspect of right h and expanding beyond marked regions with marker. No discomfort with range of motion of right wrist or fingers. 2+ radial pulses equal bilateral. Normal distal sensation' History and physical exam concerning for worsening cellulitis as well as allergic reaction. No signs of anaphylaxis, had osteomyelitis, neurovascular compromise, acute threat to limb. Plan labs, Zosyn, hospital admission as patient is failing p.o. Differential Diagnosis Differential Diagnoses: The differential diagnosis associated with the presentation includes History and physical exam concerning for worsening cellulitis as well as allergic reaction. No signs of anaphylaxis, had osteomyelitis, neurovascular compromise, acute threat to limb. Admission/Observation Consideration of admission/observation: Escalation of care including admission/observation considered likely Independent Interpretation I performed an independent interpretation of an: Plain X-Ray Radiology Impression Discussion of test interpretation with radiology: I have reviewed the radiologist's reading. External Record Review External record reviewed: Office record, Outpatient record, Prior outpatient labs, Prior outpatient radiology and Primary care record Chronic Conditions Patient?s care impacted by: Other (Atrial fibrillation, CHF, atrial septal defect, CKD, Alzheimer's, tricuspid regurg) Discharge Plan Discharge Clinical Impression: Cellulitis Patient Disposition: Admitted As Inpatient Prescriptions: No Action furosemide 20 mg tablet 20 mg PO .COMPLEX Qty: 120 5RF Rx Instructions: 20 mg orally One tablet daily except Sunday and Sunday 2 tablets; cephalexin 250 mg capsule 250 mg PO BID 7 Days Qty: 14 0RF cholecalciferol (vitamin D3) 25 mcg (1,000 unit) capsule 25 mcg PO DAILY 90 Days Qty: 90 3RF Eliquis 2.5 mg tablet 2.5 mg PO BID Qty: 60 5RF donepezil 10 mg tablet 10 mg PO DAILY 90 Days Qty: 90 3RF levothyroxine 75 mcg tablet 75 mcg PO DAILY 90 Days Qty: 90 3RF metoprolol succinate 100 mg tablet extended release 24 hr 100 mg PO DAILY 90 Days Qty: 90 3RF Print Language: Burundian
--- OUTSIDE RECORDS SUMMARY | 2024-05-01 15:26 | XMS_ITS ---
Author Organization [facility] Address [address] [place] [address] Care Team Providers Care Acting Instructor Name Role Phone Hitesh CRENSHAW [place] Primary Care Provider Unava ilPatti Donald [phone] Encounters Encounter Location Date Provider Diagnosis [facility] [address] [place] [address] 03/11/2024 Patti Andrade PLAN OF TREATMENT Next Appt Details Provider Name:Patti ponce, 05/16/2024 01:45:00 PM, [address] [place], [address],
--- OUTSIDE RECORDS SUMMARY | 2024-05-01 15:26 | XMS_ITS ---
Author Organization [facility] Address [address] [place] [address] Care Team Providers Care Photovoltaic Subcontractor Name Role Phone Hitesh CRENSHAW [place] Primary Care Provider Unava ilPatti Donald Unavailable [phone] REASON FOR VISIT Gel Toe Spreaders Large Encounters Encounter Location Date Provider Diagnosis [facility] [address] [place] [address] 03/04/2024 Patti Andrade PLAN OF TREATMENT Next Appt Details Provider Name:Patti ponce, 05/16/2024 01:45:00 PM, [address] [place], [address],
--- OUTSIDE RECORDS SUMMARY | 2024-05-01 15:26 | XMS_ITS ---
Author Organization [facility] Address [address] [facility] [place] [address] Care Team Providers Care Vault Maker Name Role Phone Hitesh CRENSHAW [place] Primary Care Provider Patti Arellano Unavailable [phone] ALLERGIES Allergen (clinical drug ingredient) Drug/Non Drug Allergy documented on EMR Reaction Allergy Type Onset Date Status sulfamethoxazole / trimethoprim Bactrim Unknown Drug Allergy Active ciprofloxacin Cipro Unknown Drug Allergy Act fortino Shrimp Flavor Unknown Drug Allergy Act fortino REASON FOR VISIT At Risk Footcare, Painful Nail(s) aggrevated by shoes and causing difficulty standing/walking. MEDICATIONS Medication SIG (Take, Route, Frequency, Duration) Notes Start Date End Date Status Eliquis 2.5 MG as directed Orally Active B-Complex Active Vitamin D Active Furosemide 20 MG Oral for 90 Days Active Levothyroxine Sodium 75 MCG Oral for 90 Days Active Warfarin Sodium 10 MG 1 tablet Orally On ce a day for 48 days Not-Taking Metoprolol Succinate ER 100 MG Oral for 90 Days Active Donepezil HCl 10 MG Oral for 90 Active SOCIAL HISTORY Tobacco Use: Social History Observation Description Date Details (start date - stop date) Never Smoker NA - NA Sex Assigned At : Social History Observation Description Sex Assigned At Unknown Tobacco Use/Smoking Question Answer Notes Are you a: nonsmoker Additional Findings: Tobacco Non-User Current no n-smoker Tobacco use other than smoking: Question Answer Notes Are you an other tobacco user? No VITAL SIGNS Height 5 ft 2 in in 03/04/2024 Weight 83 lbs 03/04/2024 BMI 15.18 kg/m2 03/04/2024 Blood pressure systolic 111 mm Hg 03/04/20 24 Blood pressure diastolic 66 mm Hg 024 Encounters Encounter Location Date Provider Diagnosis [facility] [address] [place] [address] 03/04/2024 Patti Andrade Atherosclerosis of wrangell artery of both lower extremities, with unspecified presence of clinical manifestation I70.203 ; Tinea unguium B35.1 ; Pain in right toe(s) M79.674 and Pain in left toe(s) M79.675 ASSESSMENTS Encounter Date Diagnosis Assessment Notes Treatment Notes Treatment Clinical Notes 03/04/2024 Atherosclerosis of wrangell artery of both lower extremities, with unspecified presence of clinical manifestation (ICD-10 - I70.203) 03/04/2024 Tinea unguium (ICD-1 0 - B35.1) 03/04/2024 Pain in right toe(s) (ICD-10 - M79.674) 03/04/2024 Pain in left toe(s) (ICD-10 - M79.675) PLAN OF TREATMENT Next Appt Details Follow Up: 2 Months, Reason: Provider Name:Patit ponce, 05/16/2024 01:45:00 PM, [address] [place] [address], [phone], Procedure Notes * Category Sub-Category Detail Notes Keratoma Treatment Parring or Cutting o f Benign Hyperkeratotic Lesion(s) 64751 ( 2-4 Lesions ) - The Benign hyperkeratotic lesions, as described above were pared, and/or cut utilizing a sterile 15 blade, tissue nippers, and/or dremel, Q8 Debride Nails 1-5 Procedure: Nail debrideme nt performed extensively to reduce/remove overall nail length, girth, thickness, subungual debris, and necrotic tissue, by manual and electrical means through the use of a nail nipper and/or dremel, to more viable healthy nail plate or bed tissue 1-5. Silver nitrate used for any petechial bleeding as necessary. Patient chooses, no pharmaceutical tx (30476) Nail Reduction Nail Reduction Trimming of dyst rophic nails performed to reduce/remove overall nail length and girth, by manual and electrical means with use of a nail nipper and/or dremel, to more viable healthy nail plate or bed tissue 6-10 ([id number]) Progress Notes * Examination Category Sub-Category Detail Notes Dermatologic SKIN FINDINGS: Skin exam reveal s Keratotic lesion(s) located at TA T5 Vascular DP PULSES: 0/4, B/L PT PULSES: 0/4, B/L CAPILLARY FILL TIME: delayed, all digits , B/L SKIN TEMPERTURE GRADIENT OF THE LOWER EXTERMITIES: decreased, cool to cool, proximal to dis jennifer, B/L HAIR GROWTH/TEXTURE/ELASTICITY/TURGOR: d ecreased, B/L CLAUDICATION: denies, B/L REST PAIN: denies, B/L Nails NAILS are: Elongated, overg rown, dystrophic, lytic, greater than 3mm thick, discolored and friable with crumbly malodorous subungual debris, with pain on palpation TA T5 remaining nails are elongated, overgrown, dystrophic History and Physical Notes * HPI (History of Present Illness) Category Sub-Category Detail Notes At Risk footcare Pt States Last PCP Visit: Date: 12/11
--- OUTSIDE RECORDS SUMMARY | 2024-05-01 15:26 | XMS_ITS | Patient Health Record ---
Author Organization [facility] [place] Address [address] [place] [address] Care Team Providers Care Roustabout Supervisor Name Role Phone Darrian Proctor MD Primary Care Provider Patti Arellano Unavailable [phone] ALLERGIES Allergen (clinical drug ingredient) Drug/Non Drug Allergy documented on EMR Reaction Allergy Type Onset Date Status sulfamethoxazole / trimethoprim Bactrim Unknown Drug Allergy Active ciprofloxacin Cipro Unknown Drug Allergy Act fortino Shrimp Flavor Unknown Drug Allergy Act fortino REASON FOR REFERRAL Diagnosis 1 Pain in unspecified foot (M79.673) Referring Provider First Name Darrian Referring Provider Last Name Hitesh Referred Organization [facility] [place] Referred Provider Patti Andrade Referred Address [address],[place], [place],[address], Referred Provider Specialty Podiatry Referral Priority Routine MEDICATIONS Medication SIG (Take, Route, Frequency, Duration) Notes Start Date End Date Status Warfarin Sodium 10 MG 1 tablet Orally On ce a day for 48 days Not-Taking Metoprolol Succinate ER 100 MG Oral for 90 Days Active Donepezil HCl 10 MG Oral for 90 Active Eliquis 2.5 MG as directed Orally Active B-Complex Active Vitamin D Active Furosemide 20 MG Oral for 90 Days Active Levothyroxine Sodium 75 MCG Oral for 90 Days Active SOCIAL HISTORY Tobacco Use: Social History Observation Description Date Details (start date - stop date) Never Smoker NA - NA Sex Assigned At : Social History Observation Description Sex Assigned At Unknown Tobacco Use/Smoking Question Answer Notes Are you a: nonsmoker Additional Findings: Tobacco Non-User Current no n-smoker Alcohol Screen Question Answer Notes Did you have a drink containing alcohol in the p ast year? No Points 0 Interpretation Negative Tobacco use other than smoking: Question Answer Notes Are you an other tobacco user? No PROBLEMS Problem Type ICD Code Onset Dates Problem Status W/U Status Risk SNOMED Code Notes Problem Other hammer toe(s) (acquired), right foot (M20.41) Active confirmed Acquired hammer toe of right foot (74205227315 [id number]) Problem Other hammer toe(s) (acquired), left foot (M20.42) Active confirmed Acquired hammer toe of left foot ([id number]) Problem Atherosclerosis of red cliff artery of both lower extremities, with unspecified presence of clinical manifestation (I70.203) Active confirmed VITAL SIGNS Blood pressure diastolic 66 mm Hg 03/04/2024 Height 5 ft 2 in in 03/04/2024 Blood pressure systolic 111 mm Hg 03/04/2024 Weight 83 lbs 03/04/2024 BMI 15.18 kg/m2 03/04/2024 Encounters Encounter Location Date Provider Diagnosis [address] [address] 12/12/2023 Patti Andrade [address] [address] 12/18/2023 Patti Andrade Atherosclerosis of red cliff artery of both lower extremities, with unspecified presence of clinical manifestation I70.203 ; Other hammer toe(s) (acquired), right foot M20.41 ; Tinea unguium B35.1 ; Pain in right toe(s) M79.674 ; Pain in left toe(s) M79.675 and Other hammer toe(s) (acquired), left foot M20.[address] [address] 01/03/2024 Patti Andrade [address] [address] 03/04/2024 Patti Perickris Atherosclerosis of red cliff artery of both lower extremities, with unspecified presence of clinical manifestation I70.203 ; Tinea unguium B35.1 ; Pain in right toe(s) M79.674 and Pain in left toe(s) M79.675 [facility] [address] [place] [address] 03/04/2024 [facility] [address] [place] [address] 03/11/2024 Patti Andrade ASSESSMENTS Encounter Date Diagnosis Assessment Notes Treatment Notes Treatment Clinical Notes 12/18/2023 Other hammer toe(s) (acquired), right foot (ICD-10 - M20.41) 12/18/2023 Atherosclerosis of red cliff artery of both lower extremities, with unspecified presence of clinical manifestation (ICD-10 - I70.203) 03/04/2024 Tinea unguium (ICD-1 0 - B35.1) 03/04/2024 Atherosclerosis of red cliff artery of both lower extremities, with unspecified presence of clinical manifestation (ICD-10 - I70.203) 03/04/2024 Pain in right toe(s) (ICD-10 - M79.674) 12/18/2023 Tinea unguium (ICD-1 0 - B35.1) 12/18/2023 Pain in right toe(s) (ICD-10 - M79.674) 03/04/2024 Pain in left toe(s) (ICD-10 - M79.675) 12/18/2023 Pain in left toe(s) (ICD-10 - M79.675) 12/18/2023 Other hammer toe(s) (acquired), left foot (ICD-10 - M20.42) PLAN OF TREATMENT Next Appt Details Provider Name:Patti ponce, 05/16/2024 01:45:00 PM, [address] [place], [address], Insurance Providers Payer Name Payer Address Payer Phone Subscriber Number Group Number Insured Name Patient Relationship to Insured Coverage Start Date Coverage End Date [employer] 65 Medicare Preferred [address] [place] [address] [id number] Sandra Herrera Self - patient is the insured MEDICAL (GENERAL) HISTORY Medical History History ICD Code Cancer covid-19 Dementia Chicken pox thyroid congestive heart failure Surgical History Surgery Date(Month/Year) tubal ligation 1970 mastectomy 1998 torn knee ligament 1994 3 micro clips attached to mitral valve 1
[2024-05-01 15:54] LABS: MANUAL DIFF FLAG NO
[2024-05-01 15:57] LABS: Eosinophils Absolute Auto 0.2 X10*3/uL (0.0-0.4); Eosinophils Percent Auto 3.3 % (0-4); Hematocrit 42.3 % (37.0-47.0); Hemoglobin 13.8 g/dl (12.0-16.0); Imm Gran Abs Auto 0.01 X10*3/uL (0.00-0.03); Imm Gran Pct Auto 0.2 % (0.0-0.4); Lymphocytes Absolute Auto 0.9 X10*3/uL (1.2-4.9); Lymphocytes Percent Auto 18.7 % (20-40); Mean Corpuscular HGB Conc 32.6 g/dl (31.0-35.0); Mean Corpuscular Hemoglobin 32.8 pg (27.0-33.0); Mean Corpuscular Volume 100.5 fL (80.0-98.0); Mean Platelet Volume 8.6 fL (9.4-12.3); Monocytes Absolute Auto 0.5 X10*3/uL (0.1-1.2); Monocytes Percent Auto 10.2 % (2-11); Neutrophils Absolute Auto 3.1 x10*3/uL (2.0-8.3); Neutrophils Percent Auto 67.6 % (45-73); Platelet Count 188 X10*3/uL (160-400); Red Blood Count 4.21 X10*6/uL (4.20-5.50); Red Cell Distribution Width 13.6 % (11.0-16.0); White Blood Count 4.6 X10*3/uL (4.8-10.8)
--- NOTE | 2024-05-01 16:15 | PC.NURSE ---
No blood cultures needed per provider
[2024-05-01 16:16] LABS: Alanine Aminotransferase 20 U/L (0-31); Alkaline Phosphatase 78 U/L (39-117); Anion Gap 11 (12-20); Aspartate Amino Transferase 33 U/L (5-31); Bilirubin Total 0.7 mg/dL (0.0-1.0); Blood Urea Nitrogen 35 mg/dL (9-16); Calcium 9.8 mg/dL (8.4-10.2); Carbon Dioxide 34 mmol/L (22-29); Chloride 101 mmol/L (96-108); Estimated Glomerular Filt Rate 46; Glucose Random 92 mg/dL (60-115); Potassium 4.3 mmol/L (3.3-5.1); Sodium 142 mmol/L (135-145); Total Protein 7.1 g/dL (6.5-8.0)
[2024-05-01] MEDS: dexAMETHasone sod phosphate 4 MG/ML VIAL 8 MG IVPUSH (16:17)
[2024-05-01] MEDS: Piperacillin Sodium/Tazobactam 3.375 GM in 0.9 % Sodium Chloride 50 ML IV (16:18)
--- NOTE | 2024-05-01 17:05 | PC.NURSE ---
Pt reports cat scratch on right hand 2 days ago, was seen here and started on PO ABX, has been compliant. Pt noticed worsening in redness and swelling today, came back for eval. Alert and oriented, breathing even and unlabored, skin warm and dry. No vomiting, diarrhea, SOB or CP
--- NOTE | 2024-05-01 17:10 | PM.IMHP ---
History of Present Illness Date of Service: 05/01/24 Attending physician on admission: Adalgisa Curiel Chief Complaint: Worsening right hand infection Pt is an 83-year-old female with a PMH significant for HFpEF, mitral valve regurgitation s/p mitraclips in place, atrial septal defect, persistent AFib on Eliquis, dementia, IBS, and CKD III who presents to the ED with?worsening right hand cellulitis. Patient alert and oriented to self only secondary to dementia and is therefore incapable of providing accurate HPI, which is instead obtained from chart and provider review and family who was at bedside. Patient apparently was playing with her cat approximately 10 days ago when she got scratched at the base of her right 3rd finger. Area was cleaned and dried and covered with bacitracin and Band-Aids. Initially had did well, until early this week when patient started complaining of wound that was now leaking fluid. On Sunday and became swollen and red and patient presented to the ED where she was treated for cellulitis and discharged on cephalexin 250 mg b.i.d. x7 days. Patient re-presented today after family noticed redness and swelling has now spread further beyond marked boundaries on patient's hand as well as for a possible new pruritic rash on patient's forehead, arms, and legs bilaterally. Denies fever, chills, nausea, vomiting, abdominal pain. No chest pain/pressure, palpitation. Denies shortness or breath or difficulty breathing In the ED pt with low BP of 118/53, vitals otherwise WNL. Labs were grossly unremarkable and largely reassuring. No leukocytosis. Stable H& H. Renal function baseline. No electrolyte abnormalities. X-ray of right hand showed no acute osseous abnormalities, but showed mild soft tissue swelling and stable degenerative changes. Pt was treated with Zosyn and dexamethasone. Pt will be admitted to the hospital for treatment and further evaluation of right hand cellulitis secondary to animal encounter that has failed outpatient therapy. Review of Systems Review of Systems: Worsening right hand redness and swelling Rash on face, arms, torso, and legs No fever, chills, nausea, vomiting, abdominal pain Denies chest pain/pressure, palpitations No shortness a breath or difficulty breathing [facility] Medical History Cataract of both eyes Anticoagulated on Coumadin Petechial rash Petechial rash Enlarged RV (right ventricle) Tricuspid regurgitation Alzheimer's disease Irritable bowel syndrome (IBS) Osteoporosis Chronic kidney disease (CKD), stage III (moderate) Pure hypercholesterolemia Hypothyroidism Chronic atrial fibrillation Mitral regurgitation CHF due to valvular disease Family History Father Hx of blood clots Mother Hx of blood clots Surgical History Status post implantation of mitral valve leaflet clip (~06/16/20) Hx of tubal ligation Hx of left mastectomy Social History Housing: House Alcohol intake: never Patient Tobacco Use Status: Never used Tobacco Smoked in Last 30 Days: No e-Cigarette/Vaping Use: Never Used Second Hand Smoke Exposure: No Use of substances other than those prescribed or required for medical reasons: No Advance Directives: Yes Advance Directives on File: Yes Advance Directives Date on File: 08/11/22 Do you have a plan to hurt others: No Plan service: No Current occupational status: retired Cognitive needs: No Hearing needs: No Vision needs: Yes Meds Allergies Allergy/AdvReac Type Severity Reaction Status Date / Time Sulfa (Sulfonamide Allergy Mild RASH Verified 05/01/24 13:11 Antibiotics) [Sulfa (Sulfonamides)] ciprofloxacin [Cipro] Allergy Unknown rash Verified 05/01/24 13:11 scallops Allergy Unknown Sick to Verified 05/01/24 13:11 the stomach Home Medications ?Medication ?Instructions ?Recorded ?Confirmed ?Last Taken ?Type furosemide 20 mg tablet 20 mg PO SUMOTUTHFR 05/01/24 05/01/24 05/01/24 History furosemide 20 mg tablet 40 mg PO WESA 05/01/24 05/01/24 04/30/24 History levothyroxine 75 mcg tablet 75 mcg PO DAILY@0600 05/01/24 05/01/24 05/01/24 History vitamin B complex 1 tab PO DAILY 05/01/24 05/01/24 Unknown History Physical Exam Vital Signs and Narrative: Vital Signs: Last Vital Signs Temp 98.6 F 05/01/24 13:08 Pulse 59 05/01/24 13:08 Resp 20 05/01/24 13:08 BP 118/53 L 05/01/24 13:08 Pulse Ox 100 05/01/24 13:08 O2 Del Method Room Air 05/01/24 13:08 BMI result Body Mass Index 14.2 General: AOx1 only, frail-looking, no acute distress Resp: CTA bilaterally CVS: S1, S2, RRR GI: +BS, NT, no distention Skin: Diffuse maculopapular areas on face, arms, torso, and legs. As pictured below Neuro: Cranial nerves II-XII grossly intact bilaterally. Motor grossly intact bilaterally Extremities: Dorsal aspect of right hand with erythema, swelling, and tenderness. Small punctate lesion at the base of third finger. As pictured below Psych: Pleasantly confused Results Labs 05/01/24 15:50 05/01/24 15:50 Labs: Laboratory Results - last 24 hr 05/01/24 15:50 MCV 100.5 H MCH 32.8 MCHC 32.6 RDW 13.6 Plt Count 188 MPV 8.6 L Immature Gran % (Auto) 0.2 Neut % (Auto) 67.6 Lymph % (Auto) 18.7 L [place] % (Auto) 10.2 Eos % (Auto) 3.3 Baso % (Auto) 0.0 Lymph # (Auto) 0.9 L [place] # (Auto) 0.5 Eos # (Auto) 0.2 Baso # (Auto) 0.0 Abs Immat Gran (auto) 0.01 Absolute Neuts (auto) 3.1 Absolute Nucleated RBC 0.000 Nucleated RBC % (auto) 0.0 Anion Gap 11 L Estim Creat Clear Calc 22.0 Estimated GFR 46 Random Glucose 92 Calcium 9.8 Total Bilirubin 0.7 AST 33 H ALT 20 Alkaline Phosphatase 78 C-Reactive Protein 0.20 Total Protein 7.1 Albumin 4.0 Imaging Radiologist's Impressions: Impressions Hand X-Ray 05/01/24 15:20 IMPRESSION: No acute osseous right hand abnormality. Stable degenerative changes. Mild soft tissue swelling. Electronically signed by: Chaitanya Arauz DO 05/01/2024 04:31 PM EDT RP Assessment and Plan (1) Cellulitis of right hand: Status: Acute Plan Pt is an 83-year-old female with a PMH significant for HFpEF, mitral valve regurgitation s/p mitraclips in place, atrial septal defect, persistent AFib on Eliquis, dementia, hypothyroidism and CKD III who presents to the ED with?worsening right hand cellulitis. Pt will be admitted to the hospital for treatment and further evaluation of right hand cellulitis secondary to animal encounter that has failed outpatient therapy. Right hand cellulitis Secondary to cat scratch 10 days prior Started on Keflex 2 days ago with worsening cellulitis since Patient does not meet sepsis criteria: No fever, tachycardia, tachypnea, or leukocytosis Will treat with Zosyn, started 05/01/2024 Follow cultures Non-specific rash Pt with diffuse pruritic, nonpainful, maculopapular rash on face, arms, torso, and legs bilaterally Unclear etiology, unclear age Patient given dexamethasone in the ED Benadryl p.o. p.r.n. for pruritus Persistent AFib Continue Eliquis, metoprolol HFpEF Not in acute exacerbation BP soft, hold furosemide for now Hypothyroidism Continue levothyroxine Unspecified dementia Continue donepezil Full Code Attending:?Dr. Curiel DVT Prophylaxis: On Eliquis Pt will require a hospitalization of at least two nights for treatment of?right hand cellulitis secondary to cat scratch that has failed outpatient therapy that will require IV antibiotics. Quality Stroke Does the patient have a stroke diagnosis?: No VTE Prior VTE?: No VTE Risk Level:: Medical - moderate - high VTE Device Contraindication: Treatment Not Indicated VTE Drug Contraindication: N/A - Med Ordered
[2024-05-01 17:43] LABS: Erythrocyte Sedimentation Rate 5 MM/HR (0-20)
[2024-05-01] MEDS: diphenhydrAMINE HCL 25 MG CAPSULE PO (18:13)
--- NOTE | 2024-05-01 19:20 | PHA.MEDREC ---
Addendum entered by Irene Pace RPh 05/01/24 19:32: Reviewed by [facility] Original Note: Pharmacy Consult ? Medication Reconciliation Pharmacy has completed the medication reconciliation. Spoke to patient to confirm med list. patient didn't know what she takes she said to call her daughter. Called and spoke to daughter Alida and she was able to confirm patients medications. she said patient takes Furosemide 20 mg 1 tablet every day except on Saturdays and Wednesdays she takes 2 tablets. patient is no longer on cephalexin .
[2024-05-01 19:59] VITALS: BP 108/53; PULSE 55; RESP 16; TEMP 36.3; O2SAT 97
[2024-05-01] MEDS: Apixaban 2.5 MG TABLET PO (20:25)
[2024-05-01 21:15] VITALS: BP 142/78; PULSE 89; RESP 18; TEMP 36.1; O2SAT 97
[2024-05-01] MEDS: Piperacillin Sodium/Tazobactam 2.25 GM in 0.9 % Sodium Chloride 50 ML IV (21:49)
[2024-05-02 04:00] VITALS: BP 117/65; PULSE 68; RESP 16; TEMP 36.6; O2SAT 99
[2024-05-02] MEDS: Piperacillin Sodium/Tazobactam 2.25 GM in 0.9 % Sodium Chloride 50 ML IV ×4 (04:34→22:30)
[2024-05-02] MEDS: Levothyroxine Sodium 75 MCG TABLET PO (05:07)
[2024-05-02 07:16] VITALS: BP 108/63; PULSE 73; RESP 18; TEMP 36.8; O2SAT 96
[2024-05-02] MEDS: 0.9 % Sodium Chloride Flush 3 ML SYRINGE IVFLUSH ×3 (07:29→23:31)
[2024-05-02] MEDS: Apixaban 2.5 MG TABLET PO ×2 (07:30→20:03)
[2024-05-02] MEDS: Metoprolol Succinate ER 100 MG TAB.ER.24H PO (07:30)
[2024-05-02] MEDS: Cholecalciferol (Vitamin D3) 25 MCG TABLET PO (07:31)
[2024-05-02] MEDS: Donepezil HCl 10 MG TABLET PO (07:31)
[2024-05-02] MEDS: Multivitamin TABLET 1 TAB PO (07:31)
--- NOTE | 2024-05-02 09:07 | MHC.CM.PN ---
Addendum entered by Eva Abreu 05/02/24 09:09: A new HCP has been documented and scanned into EMR. Original Note: IMM 05/02/24 Female DX Cellulits from cat scratch. Patient lives with her son. She is independent with all functional mobility. If a VNA is ordered at co, Pt preference is [facility]. A referral has been sent to [facility]. DP Home self care. She will arrange for a ride home from a family member.
[2024-05-02 11:40] VITALS: BMI 15.7
--- NOTE | 2024-05-02 14:56 | P.PNIM_ITS ---
Subjective Subjective Date of Service: 05/03/24 Interval History: Being followed for right hand cellulitis due to cat scratch Poor historian due to dementia, denies pain and right hand, unable to recall when rash started but feels that started after using antibiotics (keflex), denies fever, no chills complaining itching. Review of Systems All other system reviewed and are negative. Physical Exam 2 Vital Signs: Vital Signs: Last Vital Signs Temp 98.2 F 05/02/24 07:16 Pulse 73 05/02/24 07:16 Resp 18 05/02/24 07:16 BP 108/63 05/02/24 07:16 Pulse Ox 96 05/02/24 07:16 O2 Del Method Room Air 05/02/24 07:16 BMI result Body Mass Index 15.7 Const: Other: General awake alert, in no acute distress. Neck no JVD. CVS regular rate rhythm, Respiratory lungs clear to auscultation, no respiratory distress, no wheeze, no rhonchi. Gastrointestinal abdomen soft, nonbtender, bowel sounds audible Extremities no edema. Neuro non focal Skin diffuse raised rash on forehead, arms torso and legs please see pictures in admission note, also nonblanching rash on legs, and hyperemic rash finger webs Dorsum of right hand with mild erythema, swelling resolved small punctate lesion at base of 3rd finger with no drainage Psych pleasantly confused Objective Data Active Medications Acetaminophen (Acetaminophen 325 Mg Tablet) 650 mg PO Q6H PRN PRN Reason: Pain, Mild (Pain Scale 1-3), fever or headache Apixaban (Apixaban 2.5 Mg Tablet) 2.5 mg PO BID [facility] Last Admin: 05/02/24 07:30 Dose: 2.5 mg Documented By: BASIA Benzonatate (Benzonatate 100 Mg Capsule) 100 mg PO TID PRN PRN Reason: Cough Calcium Carbonate (Calcium Carbonate 750 Mg Tab.Chew) 750 mg PO Q4H PRN PRN Reason: Heartburn Donepezil HCl (Donepezil Hcl 10 Mg Tablet) 10 mg PO DAILY [facility] Last Admin: 05/02/24 07:31 Dose: 10 mg Documented By: BASIA Furosemide (Furosemide 40 Mg Tablet) 40 mg PO WeSa@0900 [facility]; Protocol Piperacillin Sod/Tazobactam (Sod 2.25 gm/ Sodium Chloride) 50 mls @ 100 mls/hr IV Q6H [facility] Last Infusion: 05/02/24 12:12 Dose: Infused Documented By: BASIA Levothyroxine Sodium (Levothyroxine Sodium 75 Mcg Tablet) 75 mcg PO DAILY@0600 [facility] Last Admin: 05/02/24 05:07 Dose: 75 mcg Documented By: GIOVANNI-ARSEN Magnesium Hydroxide (Milk Of Magnesia 30 Ml Oral.Susp) 30 ml PO DAILY PRN PRN Reason: Constipation Melatonin (Melatonin 3 Mg Tablet) 6 mg PO BEDTIME PRN PRN Reason: Insomnia Metoprolol Succinate (Metoprolol Succinate Er 100 Mg Tab.Er.24h) 100 mg PO DAILY [facility]; Protocol Last Admin: 05/02/24 07:30 Dose: 100 mg Documented By: BASIA Multivitamins/Vitamin C (Multivitamin Tablet) 1 tab PO DAILY [facility] Last Admin: 05/02/24 07:31 Dose: 1 tab Documented By: BASIA Ondansetron HCl (Ondansetron Hcl 4 Mg/2 Ml Vial) 4 mg IVPUSH Q8H PRN PRN Reason: Nausea and Vomiting Sodium Chloride (0.9 % Sodium Chloride Flush 3 Ml Syringe) 3 ml IVFLUSH QSHIFT [facility] Last Admin: 05/02/24 07:29 Dose: 3 ml Documented By: BASIA Vitamin D (Cholecalciferol (Vitamin D3) 25 Mcg Tablet) 25 mcg PO DAILY [facility] Last Admin: 05/02/24 07:31 Dose: 25 mcg Documented By: BASIA Labs 05/01/24 15:50 05/01/24 15:50 Labs: Laboratory Results - last 24 hr 05/01/24 15:50 MCV 100.5 H MCH 32.8 MCHC 32.6 RDW 13.6 Plt Count 188 MPV 8.6 L Immature Gran % (Auto) 0.2 Neut % (Auto) 67.6 Lymph % (Auto) 18.7 L [place] % (Auto) 10.2 Eos % (Auto) 3.3 Baso % (Auto) 0.0 Lymph # (Auto) 0.9 L [place] # (Auto) 0.5 Eos # (Auto) 0.2 Baso # (Auto) 0.0 Abs Immat Gran (auto) 0.01 Absolute Neuts (auto) 3.1 Absolute Nucleated RBC 0.000 Nucleated RBC % (auto) 0.0 ESR 5 Anion Gap 11 L Estim Creat Clear Calc 22.0 Estimated GFR 46 Random Glucose 92 Calcium 9.8 Total Bilirubin 0.7 AST 33 H ALT 20 Alkaline Phosphatase 78 C-Reactive Protein 0.20 Total Protein 7.1 Albumin 4.0 Assessment and Plan (1) Cellulitis of right hand: Status: Acute (2) Rash and nonspecific skin eruption: Status: Acute Plan 83-year-old female with a PMH significant for HFpEF, mitral valve regurgitation s/p mitraclips in place, atrial septal defect, persistent AFib on Eliquis, dementia, hypothyroidism and CKD III who presents to the ED with?worsening right hand cellulitis. Pt will be admitted to the hospital for treatment and further evaluation of right hand cellulitis secondary to animal encounter that has failed outpatient therapy. Right hand cellulitis Secondary to cat scratch 10 days prior Failed outpatient antibiotic treatment with Keflex on iv Zosyn, started 05/01/2024 Afebrile, normal WBC if remained hemodynamically stable will transition to by mouth antibiotics Non-specific rash Pt with diffuse pruritic, nonpainful, maculopapular rash on face, arms, torso, and legs bilaterally, with some itching Unclear etiology, unclear age Patient given dexamethasone in the ED Benadryl p.o. p.r.n. for pruritus and add steroid cream twice daily Monitor closely Persistent AFib Continue Eliquis, and metoprolol HFpEF Not in acute exacerbation,BP soft, continue to hold furosemide Moderate protein calorie malnutrition recommend protein supplement. Hypothyroidism Continue levothyroxine Unspecified dementia Continue donepezil Full Code DVT Prophylaxis: On Eliquis Pt will require continued inpatient hospitalization for treatment of?right hand cellulitis secondary to cat scratch that has failed outpatient therapy that will require IV antibiotics. Quality Stroke Does the patient have a stroke diagnosis?: No VTE Prior VTE?: No VTE Risk Level:: Medical - moderate - high VTE Device Contraindication: Treatment Not Indicated VTE Drug Contraindication: N/A - Med Ordered
[2024-05-02 15:04] VITALS: BP 111/58; PULSE 66; RESP 20; TEMP 36.1; O2SAT 97
--- NOTE | 2024-05-02 15:21 | HO.WOUND ---
Wound Consult: Initial 83yr old? female admitted to [facility] on 05/01/24 - See progress notes and H&P for detailed history.? Wound consult placed for buttock.? Patient agreeable to assessment and photo documentation.? Coccyx - No Pressure injury noted - redness is blanchable - it is slow to sharath but remains blanchable at this time. The tissue remains intact and she denies pain. Nutrition is following and offered supplements - patient refused at this time. Recommend preventative measure of Foam to protect from friction and aid in pressure redistribution and ANN MARIE mattress to be added. Recommendations: 1. Turn and Reposition every 2 hours and as needed for patient comfort.? Use pillows or wedges to support off loading positions. 2. Off Load all bony prominences with use of pillows and heel boots if needed.? Apply Preventative foams where needed. ? 3. Monitor for incontinence and moisture control, use barrier creams when needed for prevention and treatment. 4. Provide adequate and supplemental nutrition.? 5. Order low air loss mattress. 6. When applicable maintain blood glucose levels per Providers order. 7. Coccyx and Sacrum - Routine Cleansing - Apply sacral foam dressing assess Q shift and Change every 5 days and PRN. Re-consult wound care Nurse for wound deterioration or wound changes.
[2024-05-02 16:00] VITALS: BP 96/54; PULSE 66; RESP 18; TEMP 36.3; O2SAT 95
[2024-05-02] MEDS: Triamcinolone Acet 0.5 % Cream 15 GM TUBE 1 APPL TOPICAL ×2 (16:40→20:05)
[2024-05-03] VITALS: RESP 16
[2024-05-03 03:02] VITALS: BP 137/77; PULSE 61; RESP 16; TEMP 36; O2SAT 93
[2024-05-03] MEDS: Piperacillin Sodium/Tazobactam 2.25 GM in 0.9 % Sodium Chloride 50 ML IV (05:39)
[2024-05-03] MEDS: Levothyroxine Sodium 75 MCG TABLET PO (05:40)
[2024-05-03 07:03] VITALS: BP 118/58; PULSE 52; RESP 16; TEMP 36.2; O2SAT 96
[2024-05-03] MEDS: 0.9 % Sodium Chloride Flush 3 ML SYRINGE IVFLUSH ×3 (09:19→21:15)
[2024-05-03 09:20] VITALS: BP 114/54; PULSE 62
[2024-05-03] MEDS: Metoprolol Succinate ER 100 MG TAB.ER.24H PO (09:20)
[2024-05-03] MEDS: Donepezil HCl 10 MG TABLET PO (09:23)
[2024-05-03] MEDS: Multivitamin TABLET 1 TAB PO (09:24)
[2024-05-03] MEDS: Apixaban 2.5 MG TABLET PO ×2 (09:24→21:16)
[2024-05-03] MEDS: Cholecalciferol (Vitamin D3) 25 MCG TABLET PO (09:24)
[2024-05-03] MEDS: Triamcinolone Acet 0.5 % Cream 15 GM TUBE 1 APPL TOPICAL ×2 (09:24→21:16)
[2024-05-03] MEDS: methylPREDNISolone Sod Succ 40 MG/ML VIAL IVPUSH ×2 (10:05→21:15)
--- NOTE | 2024-05-03 12:55 | P.PNIM_ITS ---
Subjective Subjective Date of Service: 05/04/24 Interval History: Patient is a poor historian with underlying history of dementia Complaining of intermittent itching, denies right hand worsening swelling or pain, denies shortness of breath, no nausea, no vomiting, no fever no chills, tolerating diet no acute issues overnight. Review of Systems All other system reviewed and are negative Physical Exam 2 Vital Signs: Vital Signs: Last Vital Signs Temp 97.2 F 05/03/24 07:03 Pulse 62 05/03/24 09:20 Resp 16 05/03/24 07:03 BP 114/54 L 05/03/24 09:20 Pulse Ox 96 05/03/24 07:03 O2 Del Method Room Air 05/03/24 07:03 BMI result Body Mass Index 15.7 Const: Other: General awake alert, in no acute distress. Neck no JVD. CVS regular rate rhythm, Respiratory lungs clear to auscultation, no respiratory distress, no wheeze, no rhonchi. Gastrointestinal abdomen soft, nonbtender, bowel sounds audible Extremities no edema. Neuro non focal Skin diffuse raised rash on forehead, arms torso and legs please see pictures in admission note, also nonblanching rash on legs, and hyperemic rash finger webs , no vesicle Dorsum of right hand with mild erythema, swelling resolved ,dry punctate lesion at base of 3rd finger with no drainage. Psych pleasantly confused Objective Data Active Medications Acetaminophen (Acetaminophen 325 Mg Tablet) 650 mg PO Q6H PRN PRN Reason: Pain, Mild (Pain Scale 1-3), fever or headache Apixaban (Apixaban 2.5 Mg Tablet) 2.5 mg PO BID [facility] Last Admin: 05/03/24 09:24 Dose: 2.5 mg Documented By: BASIA Benzonatate (Benzonatate 100 Mg Capsule) 100 mg PO TID PRN PRN Reason: Cough Calcium Carbonate (Calcium Carbonate 750 Mg Tab.Chew) 750 mg PO Q4H PRN PRN Reason: Heartburn Diphenhydramine HCl (Diphenhydramine Hcl 25 Mg Capsule) 25 mg PO Q6H PRN PRN Reason: itching Donepezil HCl (Donepezil Hcl 10 Mg Tablet) 10 mg PO DAILY [facility] Last Admin: 05/03/24 09:23 Dose: 10 mg Documented By: BASIA Levothyroxine Sodium (Levothyroxine Sodium 75 Mcg Tablet) 75 mcg PO DAILY@0600 [facility] Last Admin: 05/03/24 05:40 Dose: 75 mcg Documented By: CHAPIS Magnesium Hydroxide (Milk Of Magnesia 30 Ml Oral.Susp) 30 ml PO DAILY PRN PRN Reason: Constipation Melatonin (Melatonin 3 Mg Tablet) 6 mg PO BEDTIME PRN PRN Reason: Insomnia Methylprednisolone Sodium Succinate (Methylprednisolone Sod Succ 40 Mg/Ml Vial) 40 mg IVPUSH Q12H [facility] Last Admin: 05/03/24 10:05 Dose: 40 mg Documented By: BASIA Metoprolol Succinate (Metoprolol Succinate Er 100 Mg Tab.Er.24h) 100 mg PO DAILY [facility]; Protocol Last Admin: 05/03/24 09:20 Dose: 100 mg Documented By: BASIA Multivitamins/Vitamin C (Multivitamin Tablet) 1 tab PO DAILY [facility] Last Admin: 05/03/24 09:24 Dose: 1 tab Documented By: BASIA Ondansetron HCl (Ondansetron Hcl 4 Mg/2 Ml Vial) 4 mg IVPUSH Q8H PRN PRN Reason: Nausea and Vomiting Sodium Chloride (0.9 % Sodium Chloride Flush 3 Ml Syringe) 3 ml IVFLUSH QSHIFT [facility] Last Admin: 05/03/24 09:19 Dose: 3 ml Documented By: BASIA Triamcinolone Acetonide (Triamcinolone Acet 0.5 % Cream 15 Gm Tube) 1 appl TOPICAL BID [facility]; Protocol Last Admin: 05/03/24 09:24 Dose: 1 appl Documented By: BASIA Vitamin D (Cholecalciferol (Vitamin D3) 25 Mcg Tablet) 25 mcg PO DAILY [facility] Last Admin: 05/03/24 09:24 Dose: 25 mcg Documented By: BASIA Labs 05/01/24 15:50 05/01/24 15:50 Assessment and Plan (1) Rash and nonspecific skin eruption: Status: Acute (2) Cellulitis of right hand: Status: Acute Plan 83-year-old female with a PMH significant for HFpEF, mitral valve regurgitation s/p mitraclips in place, atrial septal defect, persistent AFib on Eliquis, dementia, hypothyroidism and CKD III who presents to the ED with?worsening right hand cellulitis. Pt will be admitted to the hospital for treatment and further evaluation of right hand cellulitis secondary to animal encounter that has failed outpatient therapy. Right hand cellulitis Secondary to cat scratch 10 days prior Redness and swelling significantly resolved DC IV antibiotics, afebrile, normal WBC, follow clinical course Non-specific rash Pt with diffuse pruritic, nonpainful, maculopapular rash on face, arms, torso, and legs bilaterally, with some itching Unclear etiology, unclear age Since no improvement in rash will place on IV Solu Medrol,cont. Benadryl p.o. p.r.n. for pruritus and steroid cream twice daily Call daughter left message to discuss when rash was started, before or after starting Keflex. Monitor closely Persistent AFib Continue Eliquis, and metoprolol HFpEF Not in acute exacerbation,BP soft, continue to hold furosemide Moderate protein calorie malnutrition recommend protein supplement. Hypothyroidism Continue levothyroxine Unspecified dementia Continue donepezil Full Code DVT Prophylaxis: On Eliquis Pt will require continued inpatient hospitalization for treatment of?right hand cellulitis secondary to cat scratch that has failed outpatient therapy that will require IV antibiotics. Quality Stroke Does the patient have a stroke diagnosis?: No VTE Prior VTE?: No VTE Risk Level:: Medical - moderate - high VTE Device Contraindication: Treatment Not Indicated VTE Drug Contraindication: N/A - Med Ordered
[2024-05-03 15:11] VITALS: BP 130/60; PULSE 61; RESP 16; TEMP 36.8; O2SAT 95
[2024-05-03 19:18] VITALS: BP 114/64; PULSE 73; RESP 16; TEMP 36.7; O2SAT 95
[2024-05-03] MEDS: diphenhydrAMINE HCL 25 MG CAPSULE PO (21:15)
[2024-05-04 03:01] VITALS: BP 126/73; PULSE 66; RESP 16; TEMP 36.1; O2SAT 94
[2024-05-04] MEDS: Levothyroxine Sodium 75 MCG TABLET PO (05:35)
[2024-05-04 07:41] VITALS: BP 131/68; PULSE 57; RESP 16; TEMP 36.4; O2SAT 97
[2024-05-04] MEDS: Apixaban 2.5 MG TABLET PO (08:38)
[2024-05-04] MEDS: Cholecalciferol (Vitamin D3) 25 MCG TABLET PO (08:38)
[2024-05-04] MEDS: Donepezil HCl 10 MG TABLET PO (08:38)
[2024-05-04] MEDS: Metoprolol Succinate ER 100 MG TAB.ER.24H PO (08:38)
[2024-05-04] MEDS: Multivitamin TABLET 1 TAB PO (08:39)
[2024-05-04] MEDS: 0.9 % Sodium Chloride Flush 3 ML SYRINGE IVFLUSH (08:39)
[2024-05-04] MEDS: methylPREDNISolone Sod Succ 40 MG/ML VIAL IVPUSH (08:39)
[2024-05-04] MEDS: Triamcinolone Acet 0.5 % Cream 15 GM TUBE 1 APPL TOPICAL (08:39)
--- NOTE | 2024-05-04 12:25 | MHC.CM.PN ---
PATIENT IS DC HOME - SELF CARE. RN AND UNIT AWARE OF PLAN. [facility] MADE AWARE IN [facility]. IMM 05/02 PREVIOUSLY COMPLETED.
--- NOTE | 2024-05-04 12:27 | P.DS_ITS ---
DS: Providers Provider Date of Service: 05/04/24 Date of admission: 05/01/24 17:24 Date of discharge: 05/04/24 Primary care physician: Darrian Proctor MD Consults: 05/02/24 07:41 Consult to Wound Care Routine Reason for consultation: bilateral buttocks redness Has provider been notified: No DS: Diagnosis Discharge Diagnosis (1) Rash and nonspecific skin eruption: Status: Acute (2) Cellulitis of right hand: Status: Acute DS: Summary Hospital Course Hospital Course: History of presenting illness: Date of Service: 05/01/24 Attending physician on admission: Adalgisa Curiel Chief Complaint: Worsening right hand infection Pt is an 83-year-old female with a PMH significant for HFpEF, mitral valve regurgitation s/p mitraclips in place, atrial septal defect, persistent AFib on Eliquis, dementia, IBS, and CKD III who presents to the ED with?worsening right hand cellulitis. Patient alert and oriented to self only secondary to dementia and is therefore incapable of providing accurate HPI, which is instead obtained from chart and provider review and family who was at bedside. Patient apparently was playing with her cat approximately 10 days ago when she got scratched at the base of her right 3rd finger. Area was cleaned and dried and covered with bacitracin and Band-Aids. Initially had did well, until early this week when patient started complaining of wound that was now leaking fluid. On Sunday and became swollen and red and patient presented to the ED where she was treated for cellulitis and discharged on cephalexin 250 mg b.i.d. x7 days. Patient re-presented today after family noticed redness and swelling has now spread further beyond marked boundaries on patient's hand as well as for a possi ble new pruritic rash on patient's forehead, arms, and legs bilaterally. Denies fever, chills, nausea, vomiting, abdominal pain. No chest pain/pressure, palpitation. Denies shortness or breath or difficulty breathing In the ED pt with low BP of 118/53, vitals otherwise WNL. Labs were grossly unremarkable and largely reassuring. No leukocytosis. Stable H& H. Renal function baseline. No electrolyte abnormalities. X-ray of right hand showed no acute osseous abnormalities, but showed mild soft tissue swelling and stable degenerative changes. Pt was treated with Zosyn and dexamethasone. Pt will be admitted to the hospital for treatment and further evaluation of right hand cellulitis secondary to animal encounter that has failed outpatient therapy. Hospital course: 83-year-old female with a PMH significant for HFpEF, mitral valve regurgitation s/p mitraclips in place, atrial septal defect, persistent AFib on Eliquis, dementia, hypothyroidism and CKD III presented to the ED with?worsening right hand cellulitis and admitted to the hospital for treatment and further evaluation of right hand cellulitis secondary to animal encounter that has failed outpatient therapy. Right hand cellulitis secondary to cat scratch treated at home with 2 days of Keflex, treated with IV Zosyn, patient remained afebrile with normal WBC count, redness and erythema completely resolved, therefore being discharged home on no further antibiotics. In regard to diffuse Non-specific rash, daughter provided history that rash was present on left upper arm prior to use of Keflex but noted new areas of rash over the course of next few days while on keflex, no history of prior similar rash, patient goes out and does yard work frequently,no hx of bug bites,no associated fevers, no pain, no vesicles, had intermittent itching, treated with IV Solu Medrol with good response ,will discharge home on 5 more days of steroids ,recommend to use Kenalog cream for few more days. Recommend to continue Eliquis and metoprolol for Persistent AFib, no acute CHF exacerbation was noted continue home dose of Lasix Hypothyroidism recommend to continue levothyroxine. Unspecified dementia continue donepezil. Time Attestation Discharge Coordination Time (in mins): 36 Quality: Safe Use of Opioids Does Pt have an Active Cancer Diagnosis on the Problem List?: No Quality: Stroke Does the patient have a stroke diagnosis?: No Physical Exam Vital Signs: Vital Signs: Last Vital Signs Temp 97.6 F 05/04/24 07:41 Pulse 57 05/04/24 07:41 Resp 16 05/04/24 07:41 BP 131/68 05/04/24 07:41 Pulse Ox 97 05/04/24 07:41 O2 Del Method Room Air 05/04/24 07:41 BMI result Body Mass Index 15.7 Const: Other: General awake alert, in no acute distress. Neck no JVD. CVS regular rate rhythm, Respiratory lungs clear to auscultation, no respiratory distress, no wheeze, no rhonchi. Gastrointestinal abdomen soft, non tender, bowel sounds audible Extremities no edema. Neuro non focal Skin significant improvement in diffuse rash with less hyperemia, no open sores Dorsum of right hand erythema and swelling resolved,dry punctate lesion at base of 3rd finger with no drainage. Psych pleasantly confused Discharge Plan Discharge Anticipated Discharge Date/Time: 05/04/24 10:13 Patient Disposition: Home, Self-Care Discharge Diagnosis: Right hand cellulitis Nonspecific diffuse rash Referrals: Darrian Proctor MD [Primary Care Provider] - 1 Week Discharge Medications: New prednisone 10 mg tablet 10 mg PO DAILY Qty: 5 0RF Rx Instructions: take prednisone 10mg x 2 tabs x2 days than 10mg 1 tab daily x3 days with food famotidine [Pepcid] 20 mg tablet 20 mg PO DAILY Qty: 10 0RF Continued furosemide 20 mg tablet 40 mg PO WESA levothyroxine 75 mcg tablet 75 mcg PO DAILY@0600 furosemide 20 mg tablet 20 mg PO SUMOTUTHFR vitamin B complex Tablet 1 tab PO DAILY cholecalciferol (vitamin D3) 25 mcg (1,000 unit) capsule 25 mcg PO DAILY 90 Days Qty: 90 3RF Eliquis 2.5 mg tablet 2.5 mg PO BID Qty: 60 5RF donepezil 10 mg tablet 10 mg PO DAILY 90 Days Qty: 90 3RF metoprolol succinate 100 mg tablet extended release 24 hr 100 mg PO DAILY 90 Days Qty: 90 3RF Discharge Orders: Discharge Order (Routine); Ordered 05/04/24 Ordered By: Adalgisa Curiel Diet: Advance to usual diet Activity on Discharge: As tolerated Stand Alone Forms: Patient Portal Discharge page Print Language: Singaporean Care Plan Goals: Right hand cellulitis resolved no further antibiotics Take prednisone 20 mg (2x 10mg prednisone) x2 days starting tomorrow, then prednisone 10 mg daily for 3 days with food Take Pepcid 1 tablet daily for 5 days is scheduled and then can use Pepcid 1 tablet daily as needed for acidity. Health Concerns: Continue all home medications as before Plan of Treatment: Follow-up with PCP call for appointment Assessment: As above Discharge Date/Time: 05/04/24 14:11
== END 2024-05-04 14:11 | disposition home or self-care (01) | DRG 603 ==
LOC: HO.ED 16:17 → HO.EDOVER 18:12 → HO.S3 19:36
PROVIDERS: Physician Assistant; Admitting Provider Student in an Organized Health Care Education/Training Program; Emergency Provider Emergency Medicine; PCP Internal Medicine; Visit Provider Hospitalist
DX: L03.113 Cellulitis of right upper limb (principal); I50.32 Chronic diastolic (congestive) heart failure; E44.0 Moderate protein-calorie malnutrition; Z68.1 Body mass index [BMI] 19.9 or less, adult; I48.19 Other persistent atrial fibrillation; G30.9 Alzheimer's disease, unspecified; F02.80 Dementia in other diseases classified elsewhere, unspecified severity, without behavioral disturbance, psychotic disturbance, mood disturbance, and anxiety; W55.03XD Scratched by cat, subsequent encounter; R21 Rash and other nonspecific skin eruption; I34.0 Nonrheumatic mitral (valve) insufficiency; N18.30 Chronic kidney disease, stage 3 unspecified; E03.9 Hypothyroidism, unspecified; Z79.01 Long term (current) use of anticoagulants; Z79.890 Hormone replacement therapy; Z79.899 Other long term (current) drug therapy
CPT/HCPCS: 36415; 73130; 80048; 80053; 85025; 85610; 85652; 86140; 90471; 90715; 99282; 99284; 99285; J1100; J2543; J2919

== ENCOUNTER → 2024-05-01 17:24 | Outpatient (BNV) | payer MEDICARE, SELFPAY | PROVIDERS: Admitting Provider Student in an Organized Health Care Education/Training Program; Emergency Provider Emergency Medicine; PCP Internal Medicine; Visit Provider Student in an Organized Health Care Education/Training Program | DX: L03.113 Cellulitis of right upper limb (principal) | CPT/HCPCS: 99222; 99232; 99239 ==

== ENCOUNTER 2024-05-07 09:32 | Outpatient (AMB) | payer MEDICARE, SELFPAY ==
--- NOTE | 2024-05-07 09:35 | MHC.OFFVIS ---
Vital Signs 05/07/24 09:37 Height 5 ft 1 in Weight 81 lb 9.137 oz BMI 15.4 BP 118/76 Blood Pressure Location Lt brachial Position Sitting Pulse 62 Intake Visit Reasons: 6 mth f/up Intake Note: 6 month follow-up feeling good Big Data Solutions Architect Required: No Service Engine Repairer: Service Engine Repairer Present Accompanied by: Daughter Allergies Sulfa (Sulfonamide Antibiotics) [Sulfa (Sulfonamides)] Allergy (Mild, Verified 05/01/24 13:11) RASH ciprofloxacin [Cipro] Allergy (Unknown, Verified 05/01/24 13:11) rash scallops Allergy (Unknown, Verified 05/01/24 13:11) Sick to the stomach Medication List - Last Reconciled 05/07/24 by Mikey Rodriguez MD apixaban (Eliquis) 2.5 mg PO BID cholecalciferol (vitamin D3) 25 mcg PO DAILY 90 days donepezil 10 mg PO DAILY 90 days famotidine (Pepcid) 20 mg PO DAILY furosemide 40 mg PO WESA furosemide 20 mg PO SUMOTUTHFR levothyroxine 75 mcg PO DAILY@0600 metoprolol succinate ER 100 mg PO DAILY 90 days prednisone 10 mg PO DAILY vitamin B complex 1 tab PO DAILY HPI Comments Details: Sandra comes for follow-up. He is accompanied by her daughter. She denies any new cardiac complaints at this point time. She denies any worsening shortness of breath, orthopnea, PND. Remains active. Recently admitted with cellulitis in her hand. Denies any prolonged palpitation irregular heartbeat. No lightheadedness, syncope. No chest pain. No bleeding issues or neurologic events. [facility] Medical History Cataract of both eyes Anticoagulated on Coumadin Petechial rash Petechial rash Enlarged RV (right ventricle) Tricuspid regurgitation Alzheimer's disease Irritable bowel syndrome (IBS) Osteoporosis Chronic kidney disease (CKD), stage III (moderate) Pure hypercholesterolemia Hypothyroidism Chronic atrial fibrillation Mitral regurgitation CHF due to valvular disease Surgical History Status post implantation of mitral valve leaflet clip (~06/16/20) Hx of tubal ligation Hx of left mastectomy Family History Father Hx of blood clots Mother Hx of blood clots Social History Household Members: Other Household Members Other:: son Housing: House Do you presently have visiting nurse or other home services: No Alcohol intake: never Patient Tobacco Use Status: Never used Tobacco e-Cigarette/Vaping Use: Never Used Second Hand Smoke Exposure: No Advance Directives Date on File: 08/11/22 service: No Current occupational status: retired Cognitive needs: No Hearing needs: No Vision needs: Yes Review of Systems Const Denies chills, Denies fatigue, Denies fever(s), Denies frequent falls, Denies weakness, Denies weight gain and Denies weight loss ENT Denies dizziness Card Denies chest pain, Denies leg edema, Denies lightheadedness, Denies palpitations, Denies dyspnea, Denies dyspnea on exertion, Denies orthopnea and Denies other (loss of consciousness) Resp Denies cough, Denies dyspnea and Denies dyspnea on exertion GI Denies hematochezia and Denies change in stool character Musc Denies abnormal gait, Denies muscle weakness, Denies numbness, Denies radiating pain into limb and Denies tingling Neuro Denies abnormal gait, Denies dizziness, Denies frequent falls, Denies numbness, Denies tingling and Denies weakness Endo Denies fatigue and Denies palpitations Physical Exam Vital Signs: Last Vital Signs Pulse 62 05/07/24 09:37 BP 118/76 05/07/24 09:37 BMI result Body Mass Index 15.4 Const General: cooperative, comfortable, no acute distress, alert, awake, Physically active and well groomed Nutritional Appearance: thin, underweight and other (Frail elderly woman) Orientation/consciousness: patient oriented x3 Limitations: no limitations Neck Neck: Yes trachea midline, Yes supple and Yes no JVD (Prominent V-waves) Resp Effort & Inspection: normal respiratory effort Auscultation: clear to auscultation bilaterally Cardio Jugular venous distension: no JVD Palpation: abnormal PMI displaced PMI and heave (Right ventricular) Rhythm: abnormal rhythm irregularly irregular Heart sounds: S1 normal heart sound present, S2 normal heart sound present, no click and Murmur heart sound present systolic holo and at the right sternal border GI Auscultation: normal bowel sounds Skin General skin exam: no rashes or lesions noted Neuro General: patient oriented x3 and no focal motor deficits Extrem General: No clubbing, No cyanosis and Yes edema (Right greater than left, both lower extremity in compression stocking) Psych Appearance: grossly normal Assessment & Plan Assessment & Plan (1) CHF due to valvular disease: Code(s): I50.9 - Heart failure, unspecified; I38 - Endocarditis, valve unspecified Category: Medical Plan: CHF due to prior biatrial valve regurgitation with delayed repair status post mitral valve clip. See below for management. Currently doing well, has remained clinically euvolemic and well compensated on current therapy. Will further reduce furosemide to 20 mg daily. Signs and symptoms of heart failure were discussed additional diuretics as need be. Advised to call me with worsening symptoms. Follow-up echocardiogram 6 months time. (2) Chronic atrial fibrillation: Code(s): I48.20 - Chronic atrial fibrillation, unspecified Category: Medical Plan: Chronic rate control atrial fibrillation. Longstanding atrial fibrillation unlikely to pursue rhythm control approach. Continue rate control approach with metoprolol. Rate is adequately controlled on this therapy. Continue full oral anticoagulation, currently on Eliquis 2.5 mg b.i.d.. Quarterly renal function test should be considered. (3) Status post implantation of mitral valve leaflet clip: Onset Date: ~06/16/20 Comment: May 2020. Three Aks TR MitraClips were placed for severe mitral regurgitation with reduction mitral regurgitation to mild range. Procedure was done for primary mitral regurgitation secondary to mitral valve prolapse with congestive heart failure. Code(s): Z98.890 - Other specified postprocedural states; Z95.818 - Presence of other cardiac implants and grafts Category: Surgical Plan: Status post MitraClip procedure for severe mitral regurgitation related to mitral valve prolapse. Has done significantly better since the procedure with improvement in heart failure syndrome although still requires diuretic therapy. Has residual [id number] mitral regurgitation. Pulmonary hypertension is improved significantly over time. 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 No interventions related to that is required at this point in time. Will follow-up echocardiogram in 6 months time. SBE prophylaxis as per [facility] guidelines. Currently on full oral anticoagulation with Eliquis. Will follow up in the clinic in 6 months time, sooner p.r.n.. Thank you for allowing me to partake in her care Orders: Orders CA echo transthoracic complete 6 Months Z95.818 - Presence of other cardiac implants and grafts, Z98.890 - Other specified postprocedural states Medications: Changed From furosemide 20 mg PO SUMOTUTHFR To furosemide 20 mg PO DAILY Coding Level of Care Code Est Pt Level 4 (71839) Diagnoses CHF due to valvular disease I50.9; I38 Chronic atrial fibrillation I48.20 Status post implantation of mitral valve leaflet clip Z98.890; Z95.818
[2024-05-07 09:37] VITALS: BP 118/76; PULSE 62; BMI 15.4
== END 2024-05-07 09:57 | disposition home or self-care (01) ==
PROVIDERS: PCP Internal Medicine; Visit Provider Internal Medicine
DX: I50.9 Heart failure, unspecified (principal); I38 Endocarditis, valve unspecified; I48.20 Chronic atrial fibrillation, unspecified; Z98.890 Other specified postprocedural states; Z95.818 Presence of other cardiac implants and grafts
CPT/HCPCS: 99214

== ENCOUNTER → 2024-05-07 09:32 | Outpatient (BNVA) | payer MEDICARE, SELFPAY | PROVIDERS: PCP Internal Medicine; Visit Provider Internal Medicine | DX: I50.9 Heart failure, unspecified (principal); I38 Endocarditis, valve unspecified; I48.20 Chronic atrial fibrillation, unspecified; Z95.818 Presence of other cardiac implants and grafts; Z98.890 Other specified postprocedural states | CPT/HCPCS: 99212 ==

== ENCOUNTER 2024-05-15 08:51 | Outpatient (AMB) | payer MEDICARE, SELFPAY ==
[2024-05-15 08:56] VITALS: BP 116/72; BMI 15.5
--- NOTE | 2024-05-15 08:56 | A.OFFPC_ITS ---
Vital Signs 05/15/24 08:56 Height 5 ft 1 in Weight 82 lb 4 oz BMI 15.5 BP 116/72 Blood Pressure Location Lt brachial Position Sitting Pulse Source Pulse Oximeter Oxygen Delivery Method Room Air Intake Visit Reasons: TCM 05/04 right hnd infection Volunteer Specialist Required: No Accompanied by: Self / Same As Patient Allergies Sulfa (Sulfonamide Antibiotics) [Sulfa (Sulfonamides)] Allergy (Mild, Verified 05/15/24 08:57) RASH ciprofloxacin [Cipro] Allergy (Unknown, Verified 05/15/24 08:57) rash scallops Allergy (Unknown, Verified 05/15/24 08:57) Sick to the stomach Tobacco use date assessed: 05/15/24 Fall risk assessment: No Falls in past year Last assessed Fall Risk: 05/15/24 Dental Screening Dental Screen Date: 05/15/24 Did you have a dental visit in the last 12 months?: Yes Did you have a dental problem in the last 6 months where you did not have access to dental care?: No Was dental information given to patient?: Patient has dentist HPI TCM TCM Information Date of Discharge 05/04/24 Discharged From [facility] Interactive Contact Date (Reference documentation from this date) 05/05/24 HPI Comments History of Present Illness Details 84 y/o female patient who [facility] for TCM. She was admitted at [facility] on 05/01/24 for Right hand Cellulitis from Cat Scratch. She was discharged home 05/04/24 on stable condition. Today Pt reports that infection had resolved and rash is completely Gone. Denies fevers, chills, nausea or vomiting. [facility] Medical History Cataract of both eyes Anticoagulated on Coumadin Petechial rash Petechial rash Enlarged RV (right ventricle) Tricuspid regurgitation Alzheimer's disease Irritable bowel syndrome (IBS) Osteoporosis Chronic kidney disease (CKD), stage III (moderate) Pure hypercholesterolemia Hypothyroidism Chronic atrial fibrillation Mitral regurgitation CHF due to valvular disease Surgical History Status post implantation of mitral valve leaflet clip (~06/16/20) Hx of tubal ligation Hx of left mastectomy Family History Father Hx of blood clots Mother Hx of blood clots Social History Household Members: Other Household Members Other:: son Housing: House Do you presently have visiting nurse or other home services: No Alcohol intake: never Patient Tobacco Use Status: Never used Tobacco e-Cigarette/Vaping Use: Never Used Second Hand Smoke Exposure: No Advance Directives Date on File: 08/11/22 service: No Current occupational status: retired Cognitive needs: No Hearing needs: No Vision needs: Yes Questionnaire PHQ-9 Over the last 2 weeks, how often have you been bothered by any of the following problems? 1. Little interest or pleasure in doing things: not at all 2. Feeling down, depressed, or hopeless: not at all 3. Trouble falling or staying asleep, or sleeping too much: not at all 4. Feeling tired or having little energy: several days 5. Poor appetite or overeating: not at all 6. Feeling bad about yourself - or that you are a failure or have let yourself or your family down: not at all 7. Trouble concentrating on things, such as reading the newspaper or watching television: several days 8. Moving or speaking so slowly that other people could have noticed. Or the opposite - being so fidgety or restless that you have been moving around a lot more than usual: not at all 9. Thoughts that you would be better off or of hurting yourself in some way: not at all Total score: 2 Depression Screening Interpretation: Negative Depression Screening Done: Yes 62515 - PHQ-9 Billing: Yes Source: Developed by Drs. Freedom Yung, Radha Herrera, Adi Anand and colleagues, with an educational alejandro from [employer]. Thrive Questionnaire Date Thrive assessed: 05/15/24 I am a: Patient What is your living situation today?: I have a steady place to live Within the past 12 months, did the food you bought not last and you didn't have the money to get more?: Never true Within the past 12 months, did you worry whether your food would run out before you got money to buy more?: Never true Do you have trouble paying for medicines?: No Do you have trouble getting transportation to medical appointments?: No Do you have trouble paying your heating and electricity bill?: No Do you have trouble taking care of your child, family member or friend?: No Do you have trouble with day-to-day activities such as bathing, preparing meals, shopping, managing finances, etc.?: No Are you currently unemployed and looking for a job?: No Are you interested in more education?: No Please select the resources that you would like help with: None Currently or been in a relationship where the following occur: No concerns reported THRIVE Score: 0 AUDIT C Alcohol Use Questionnaire (AUDIT-C) 1. How often do you have a drink containing alcohol?: Never 3. How often do you have six or more drinks on one occasion?: Never Total Score: 0 Score Reviewed/Action Taken: Yes ALTON-7 AMB Questionnaire ALTON-7 Date ALTON - 7 assessed: 05/15/24 Feeling nervous, anxious, or on edge: 0 = Not at all Not being able to stop or control worryin = Not at all Worrying too much about different things: 0 = Not at all Trouble relaxin = Not at all Being so restless that it is hard to sit still: 0 = Not at all Becoming easily annoyed or irritable: 0 = Not at all Feeling afraid as if something awful might happen: 0 = Not at all Total ALTON-7 score (0-4 normal; 5-9 mild; 10-14 moderate; 15-21 severe): 0 Source: Developed by Drs. Freedom Yung, Radha Herrera, Adi Anand and colleagues, with an educational alejandro from [employer]. Physical exam (Primary Care) Vital Signs: Last Vital Signs BP 116/72 05/15/24 08:56 Oxygen Delivery Method Room Air 05/15/24 08:56 BMI result Body Mass Index 15.5 Tobacco/Smoking Status: Tobacco use Status Tobacco use date assessed 05/15/24 05/15/24 08:58 Patient Tobacco Use Status Never used Tobacco 05/15/24 08:57 e-Cigarette/Vaping Use Never Used 05/15/24 08:57 PHQ-9: PHQ-9 Score PHQ-9: Total score 2 05/15/24 09:11 Depression Screening Interpretation: Negative Thrive Assessment: Date of Thrive Assessment Date Thrive assessed 05/15/24 05/15/24 08:58 Currently or been in a relationship where the following occur: No concerns reported Const General: cooperative and no acute distress Orientation/consciousness: patient oriented x3 Skin General skin exam: no rashes or lesions noted Neuro General: patient oriented x3, gait normal and moves all extremities Extrem General: Yes normal to inspection Psych Speech and movement: Normal speech and movement present Assessment and Plan Assessment & Plan (1) Cellulitis of right hand: Code(s): L03.113 - Cellulitis of right upper limb Plan: Resolved. Coding Level of Care Code TCM Mod MDM <= 14 Days Diagnoses Cellulitis of right hand L03.113 Time Spent (min) 20
== END 2024-05-15 09:25 | disposition home or self-care (01) ==
PROVIDERS: PCP Internal Medicine; Visit Provider Nurse Practitioner Family
DX: L03.113 Cellulitis of right upper limb (principal)

== ENCOUNTER → 2024-05-15 08:51 | Outpatient (BNVA) | payer MEDICARE, SELFPAY | PROVIDERS: PCP Internal Medicine; Visit Provider Nurse Practitioner Family | DX: L03.113 Cellulitis of right upper limb (principal) | CPT/HCPCS: 96127; 99212 ==

== ENCOUNTER 2024-08-05 10:07 | Outpatient (REF) | payer MEDICARE, SELFPAY ==
[2024-08-05 13:02] LABS: MANUAL DIFF FLAG NO
[2024-08-05 13:11] LABS: Basophils Percent Auto 0.4 % (0-2); Eosinophils Absolute Auto 0.2 X10*3/uL (0.0-0.4); Hematocrit 40.1 % (37.0-47.0); Hemoglobin 12.4 g/dl (12.0-16.0); Imm Gran Abs Auto 0.02 X10*3/uL (0.00-0.03); Imm Gran Pct Auto 0.4 % (0.0-0.4); Lymphocytes Percent Auto 21.6 % (20-40); Mean Corpuscular HGB Conc 30.9 g/dl (31.0-35.0); Mean Corpuscular Hemoglobin 31.6 pg (27.0-33.0); Mean Platelet Volume 9.3 fL (9.4-12.3); Monocytes Absolute Auto 0.4 X10*3/uL (0.1-1.2); Monocytes Percent Auto 9.7 % (2-11); Neutrophils Absolute Auto 2.9 x10*3/uL (2.0-8.3); Neutrophils Percent Auto 63.9 % (45-73); Platelet Count 182 X10*3/uL (160-400); Red Blood Count 3.93 X10*6/uL (4.20-5.50); Red Cell Distribution Width 15.2 % (11.0-16.0); White Blood Count 4.5 X10*3/uL (4.8-10.8)
[2024-08-05 13:20] LABS: Appearance Urine Cloudy; Color Urine Dark Yellow; Glucose Urine UA Negative (Negative); Leukocyte Esterase Urine Negative (Negative); Nitrite Urine Negative (Negative); PH 6.5 (5.0-9.0); UMIC TRIGGER UACC YES; Urine Blood Negative (Negative); Urine Ketones Negative (Negative); Urine Protein 30 (1+) mg/dL (Neg-Trace)
[2024-08-05 13:27] LABS: B Type Natriuretic Peptide 1133 pg/mL (<100)
[2024-08-05 13:32] LABS: Alanine Aminotransferase 31 U/L (0-31); Albumin Level 3.8 g/dL (3.5-5.0); Alkaline Phosphatase 77 U/L (39-117); Anion Gap 14 (12-20); Aspartate Amino Transferase 51 U/L (5-31); Bilirubin Total 1.1 mg/dL (0.0-1.0); Blood Urea Nitrogen 34 mg/dL (9-16); Calcium 8.5 mg/dL (8.4-10.2); Carbon Dioxide 31 mmol/L (22-29); Chloride 102 mmol/L (96-108); Cholesterol 170 mg/dL (<200); Estimated Glomerular Filt Rate 47; Glucose Fasting 82 mg/dL (60-99); HDL Cholesterol 66 mg/dL (>40); LDL Cholesterol Calculated 93 mg/dL (<100); Potassium 4.7 mmol/L (3.3-5.1); Sodium 142 mmol/L (135-145); Total Protein 6.9 g/dL (6.5-8.0); Triglycerides 58 mg/dL (<150)
[2024-08-05 13:37] LABS: Free T4 (Free Thyroxine) 1.36 ng/dL (0.71-1.85); Thyroid Stimulating Hormone 3.14 uIU/mL (0.32-4.0); Vitamin D 25-OH Total 55.5 ng/mL (>30)
[2024-08-05 13:50] LABS: Folate 15.7 ng/mL (> or = 4.0); Vitamin B12 785 pg/mL (200-900)
[2024-08-05 13:59] LABS: Bacteria Urine 1+ (None Seen); Calcium Oxalate Crystals Urine Present; Hyaline Casts Urine 0-2 /LPF (0-2); RBC Urine 0-2 /HPF (0-2); WBC Urine 0-5 /HPF (0-5)
--- OUTSIDE RECORDS SUMMARY | 2024-08-06 19:44 | XMS_ITS | Data Portability ---
Author Organization [facility]IE [facility], [address] Address [address] [place] [address] Assessment No assessment recorded. Plan of Treatment Reminders Order Date Submit Date Provider Last Modified By Organization Details Last Modified Time Details Appointments None recorded. Lab rapid flu (A+B) 2023 [email or web address] 20999_[facility] [address] [place], [address], 4 15:21:36 SARS CoV 2 (COVID-19) Ag, QL, IA, upper respiratory specimen 2023 024 [email or web address] [facility] [address] [place], [address], 4 15:21:36 urinalysis, dipstick 2023 024 [email or web address] _[facility], [address] [place], [address], 4 15:12:11 Referral None recorded. Procedures None recorded. Surgeries None recorded. Imaging None recorded. Medication Orders amoxicillin 875 mg-potassiu m clavulanate 125 mg tablet [address] [facility], [address] [place] [address], [address], 4 14:55:34 albuterol sulfate HFA 90 mcg/actuati on aerosol inhaler 2023 [facility], [address] [place] [address], [address], 15:21:39 azithromyci n 250 mg tablet 2023 024 [email or web address] [facility], [address] [place] [address], [address], 14:55:41 Patient TargetsNo targets recorded. Patient Instructions Encounter Date Encounter Id Patient Instructions Last Modified By Organization Details Last Modified Time 07/11/2024 [id number] pneumonia: care instructions [email or web address] Not available 07/11/2024 15:21:36 Reason for Referral None Reported. Results Created Date Observation Date Name Description Value Unit Range Abnormal Flag Note LastModifiedBy Organization Detail LastModifiedTime 07/11/2007/11/2024 SARS CoV 2 (COVI D-19) Ag, QL, IA, upper respi rator y speci men Unknown Analyte negati ve Not Available betsy ngo [address] [place], [address], 07/11/2024 14:46:48 07/11/20 24 07/11/2024 SARS CoV 2 (COVI D-19) Ag, QL, IA, upper respi rator y speci men Unknown Analyte yes Not Available arely [address] [place], [address], 07/11/2024 14:46:48 07/11/2007/11/2024 rapid flu (A+B) Unknown Analyte negati ve Not Available 2099betsy ngo [address] [place], [address], 07/11/2024 14:46:41 07/11/2007/11/2024 rapid flu (A+B) Unknown Analyte negati ve Not Available betsy ngo [address] [place], [address], 07/11/2024 14:46:41 11/26/07/22/2024 urina lysis , dipst ick Unknown Analyte Yellow Not Available _ arely [address] [place], [address], 07/22/2024 14:55:12 07/22/2007/22/2024 urina lysis , dipst ick Unknown Analyte Clear Not Available arely [address] [place], [address], 07/22/2024 14:55:12 07/22/2007/22/2024 urina lysis , dipst ick Unknown Analyte Negati ve Not Available betsy ngo [address] [place], [address], 07/22/2024 14:55:12 07/22/2007/22/2024 urina lysis , dipst ick Unknown Analyte Negati ve Not Available betsy ngo [address], [address], 07/22/2024 14:55:12 07/22/2007/22/2024 urina lysis , dipst ick Unknown Analyte Negati ve Not Available betys ngo [address], [address], 07/22/2024 14:55:12 07/22/2007/22/2024 urina lysis , dipst ick Unknown Analyte 1.025 Not Available arely [address], [address], 07/22/2024 14:55:12 07/22/2007/22/2024 urina lysis , dipst ick Unknown Analyte Trace- intact Not Available betsy ngo [address], [address], 07/22/2024 14:55:12 07/22/2007/22/2024 urina lysis , dipst ick Unknown Analyte 5.5 Not Available 2099Khurram_ arely [address], [address], 07/22/2024 14:55:12 07/22/2007/22/2024 urina lysis , dipst ick Unknown Analyte 30 mg/dL Not Available _betsy ngo [address], [address], 07/22/2024 14:55:12 07/22/2007/22/2024 urina lysis , dipst ick Unknown Analyte 0.2 E.U./d L Not Available _betsy ngo [address], [address], 07/22/2024 14:55:12 07/22/2007/22/2024 urina lysis , dipst ick Unknown Analyte Negati ve Not Available 2099tori ngo [address], [address], 07/22/2024 14:55:12 07/22/2007/22/2024 urina lysis , dipst ick Unknown Analyte Trace Not Available _ arely [address], [address], 07/22/2024 14:55:12 Result Notes None recorded. Problems Name Problem SNOMED Code Status Onset Date Resolution Date Notes Provider Name and Address Organization Details Recorded Time Congestive heart failure 66851507 Active 024 Sandra Dariusz null, PA - [facility] 14:45:47 Problem Notes None recorded. Medical Equipment None Reported. Allergies Allergen ID Allergen Name Allergen Category Reaction Reaction Severity Criticality Documentation Date Start Date Code Code System Note Provider Name and Address Organization Details Recorded Time 8048419 Cipro medicatio n Not available Not available Not available 07/11/202456937 3 RxNorm Sandra Dariusz null, PA - [facility] 4 14:43:17 7309183 scallop allergeni c extract food Not available Not available Not available 07/11/2024 42039 6 RxNorm Sandra Arzola angelo [facility] 4 14:43:30 8712626 Substance with sulfonami de structure and antibacte rial mechanism of action (substanc e) medicatio n Not available Not available Not available 07/11/2024 04291 8003 SNOMED Sandra Arzola angelo [facility] 4 14:43:34 Medications Name Sig Start Date Stop Date Status Note LastModified by Organization Details LastModified Time prednisone 10 mg tablet 07/22 completed Not Available Not Available Not Available azithromyci n 250 mg tablet TAKE 2 TABLETS (500 MG) BY ORAL ROUTE ONCE DAILY FOR 1 DAY THEN 1 TABLET (250 MG) BY ORAL ROUTE ONCE DAILY FOR 4 DAYS 07/22 completed Not Available Not Available Not Available cephalexin 250 mg capsule 07/22 completed Not Available Not Available Not Available donepezil 10 mg tablet active Not Available Not Available Not Available metoprolol succinate ER 100 mg tablet,exte nded release 24 hr active Not Available Not Available Not Available levothyroxi ne 75 mcg tablet active Not Available Not Available Not Available famotidine 20 mg tablet active Not Available Not Available Not Available warfarin 2 mg tablet active Not Available Not Available No t Available furosemide 20 mg tablet active Not Available Not Available Not Available albuterol sulfate HFA 90 mcg/actuati on aerosol inhaler Inhale 2 puffs every 4 hours by inhalatio n route for 30 days. active Not Available Not Available No t Available amoxicillin 875 mg-potassiu m clavulanate 125 mg tablet Take 1 tablet every 12 hours by oral route for 10 days. 07/22 completed Not Available Not Available Not Available levothyroxi ne active Not Available Not Available Not Available B Complex active Not Available Not Elsie ilable Not Available furosemide active Not Available Not Av ailable Not Available metoprolol succinate active Not Available Not Available No t Available Eliquis 2.5 mg tablet Take 1 tablet twice a day by oral route. active Not Available Not Available No t Available Vitals Date Recorded Body height Body mass index (BMI) Body weight Heart rate Respiratory rate Oxygen saturation Oxygen saturation in Arterial blood by Pulse oximetry Body temperature Systolic blood pressure Diastolic blood pressure Provider Name and Address Organization Details Last Updated DateTime 157.48 cm 15 kg/m2 95667.5 7 g 68 /min 18 /min 100 % 100 % 99 [degF] 134 mm[Hg] 84 mm[Hg] Sandra Dariusz PA - [facility] 14:49:58 Date Recorded Body height Body mass index (BMI) Body weight Respiratory rate Body temperature Oxygen saturation Oxygen saturation in Arterial blood by Pulse oximetry Heart rate Systolic blood pressure Diastolic blood pressure Provider Name and Address Organization Details Last Updated DateTime 157.48 cm 15.2 kg/m2 77251.1 7 g 18 /min 97.5 [degF] 97 % 97 % 54 /min 139 mm[Hg] 70 mm[Hg] Melvi Lenora PA - [facility] 14:52:35 Social History Question Answer Notes LastModified by [employer] ion Details LastModified Time Tobacco Smoking Status Never Smoker Sandra stephens PA - [facility] 07/11/2024 14:46:17 What Is Your Level Of Alcohol Consumption? None Information not available 07/11/2024 Have You Had A Flu Shot This Season? Yes Information not available 07/11/2024 If No, Would You Like A Flu Shot Today? No Information not available 07/11/2024 What Was The Date Of Your Most Recent Tobacco Screening? 07/11/2024 Information not available 07/11/2024 Do You Use Any Illicit Or Recreational Drugs? No Information not available 07/11/2024 Have You Recently Traveled Abroad? No Information not available 07/11/2024 Do You Or Have You Ever Used Any Other Forms Of Tobacco Or Nicotine? No Information not available 07/11/2024 Sex: Unknown Functional Status None recorded. Mental Status None recorded. Family History Relationship Description Onset Age of this Age Resolved Age Notes LastModified by Organization Details LastModified Time Father No current problems or disability Not available 07/11 14:45:58 Mother No current problems or disability Not available 07/11 14:45:58 Medical History No medical history recorded. Gynecological HistoryNo gynecological history recorded. Obstetrics History GPAL:G 0 P 0 0 0 0 Past Encounters Encounter ID Performer Location Encounter Start Date Encounter Closed Date Diagnosis/Indication Diagnosis SNOMED-CT Code Diagnosis ICD10 Code [id number] [address] [place] [address] 02/17/2020 11:10:35 02/17/2020 12:53:51 [id number] [address] [place] [address] 07/07/2016 09:49:52 07/07/2016 11:21:58 [id number] ROSALIE Rivas [address] [place] [address] 07/11/2024 14:37:21 07/11/2024 15:28:24 Community acquired pneumonia 726399957 J18.9 [id number] ROSALIE Rivas [address] [place] [address] 07/22/2024 14:39:53 07/22/2024 15:18:16 Mild dehydration 4392992236 108 E86.0 Health Concerns Section Related Observation LastModified by Organization Detai ls LastModified Time None Recorded Concern Status LastModified by Organization Details LastModified Time None Recorded Advance Directives Directive None Recorded Payers Encounter Date Sequence Insurance Name Policy Number Policy Cosme Covered Member ID Cosme Member ID Guarantor Name 02/17/2020 1 [facility]: MEDICARE H[place] BLUE (MEDICARE REPLACEMENT HMO) [id number] Sandra Herrera [id number] Sandra Herrera 07/11/2024 1 [facility]: MEDIC[place]UE (MEDICARE REPLACEMENT HMO) [id number] Sandra Herrera [id number] Sandra Herrera 07/22/2024 1 [facility]: MEDIC[place]UE (MEDICARE REPLACEMENT HMO) [id number] Sandra Herrera [id number] Sandra Herrera Notes Date Note Type Note Provider Name and Address Organization Details Recorded Time 07/11/2024 text/html 84 y/o female here with cough, congestion and fevers for the past week, not improving. Has CHF, but symptoms are not similar to her usual flares ROSALIE Rivas [address] [place], [address], PA - [facility] 07/11/2024 15:26:55 07/22/2024 text/html 84 y/o female here to recheck after being treated for pna 10 days ago. She is having some mid back pain. Cough has resolved completely. Daughter is concerned that her temp has been up and down, between 99-100 ROSALIE Rivas [address], [place], [address], PA - [facility] 07/22/2024 15:12:25 OBGyn Episode No OBEpisode recorded.
--- OUTSIDE RECORDS SUMMARY | 2024-08-06 19:44 | XMS_ITS | Continuity of Care Document ---
Author Organization [facility]IE Dickson [facility], [facility] Address [address] [place] [address] Assessment No assessment recorded. Plan of Treatment Reminders Order Date Submit Date Provider Last Modified By Organization Details Last Modified Time Details Appointments None recorded. Lab urinalysis , dipstick 2023 024 [email or web address] _arely [facility], [address] [place], [address], 15:12:11 Referral None recorded. Procedures None recorded. Surgeries None recorded. Imaging None recorded. Medication Orders None recorded. Patient TargetsNo targets recorded. Patient InstructionsNo instructions recorded. Reason for Referral None Reported. Results Created Date Observation Date Name Description Value Unit Range Abnormal Flag Note LastModifiedBy Organization Detail LastModifiedTime 07/22/2007/22/2024 urina lysis , dipst ick Unknown Analyte Yellow Not Available [facility] [address] [place], [address], 07/22/2024 14:55:12 07/22/2007/22/2024 urina lysis , dipst ick Unknown Analyte Clear Not Available _ [address] [place], [address], 07/22/2024 14:55:12 07/22/2007/22/2024 urina lysis , dipst ick Unknown Analyte Negati ve Not Available [address] [place], [address], 07/22/2024 14:55:12 07/22/2007/22/2024 urina lysis , dipst ick Unknown Analyte Negati ve Not Available betsy ngo [address] [place], [address], 07/22/2024 14:55:12 07/22/2007/22/2024 urina lysis , dipst ick Unknown Analyte Negati ve Not Available betsy ngo [address] [place], [address], 07/22/2024 14:55:12 07/22/2007/22/2024 urina lysis , dipst ick Unknown Analyte 1.025 Not Available are[place] [address] [place], [address], 07/22/2024 14:55:12 07/22/2007/22/2024 urina lysis , dipst ick Unknown Analyte Trace- intact Not Available betsy ngo [address] [place], [address], 07/22/2024 14:55:12 07/22/2007/22/2024 urina lysis , dipst ick Unknown Analyte 5.5 Not Available arely [address] [place], [address], 07/22/2024 14:55:12 07/22/2007/22/2024 urina lysis , dipst ick Unknown Analyte 30 mg/dL Not Available [facility]sy [place] [address] [place], [address], 07/22/2024 14:55:12 07/22/2007/22/2024 urina lysis , dipst ick Unknown Analyte 0.2 E.U./d L Not Available [facility] [address] [place], [address], 07/22/2024 14:55:12 07/22/20 24 07/22/2024 urina lysis , dipst ick Unknown Analyte Negati ve Not Available _betsy ngo [facility] [address] [place], [address], 07/22/2024 14:55:12 07/22/20 24 07/22/2024 urina lysis , dipst ick Unknown Analyte Trace Not Available _ arely [facility] [address] [place], [address], 07/22/2024 14:55:12 Result Notes None recorded. Problems Name Problem SNOMED Code Status Onset Date Resolution Date Notes Provider Name and Address Organization Details Recorded Time Congestive heart failure 34274646 Active 024 Sandra Daruisz null, PA - [facility] 14:45:47 Problem Notes None recorded. Medical Equipment None Reported. Allergies Allergen ID Allergen Name Allergen Category Reaction Reaction Severity Criticality Documentation Date Start Date Code Code System Note Provider Name and Address Organization Details Recorded Time 3176955 Cipro medicatio n Not available Not available Not available 07/11/202445014 3 RxNorm Sandra Dariusz null, PA - [facility] 4 14:43:17 7735087 scallop allergeni c extract food Not available Not available Not available 07/11/2024 65485 6 RxNorm Sandra Dariusz null, PA - [facility] 4 14:43:30 0308722 Substance with sulfonami de structure and antibacte rial mechanism of action (substanc e) medicatio n Not available Not available Not available 07/11/2024 46936 8003 SNOMED Sandra Dariusz null, PA - [facility] 4 14:43:34 Medications Name Sig [...] and Address Organization Details Last Updated DateTime 4 157.48 cm 15.2 kg/m2 77436.1 7 g 18 /min 97.5 [degF] 97 % 97 % 54 /min 139 mm[Hg] 70 mm[Hg] Melvi WIGGINS - [facility] 14:52:35 Social History Question Answer Notes LastModified by Organizat ion Details LastModified Time Tobacco Smoking Status Never Smoker ROSALIE Chow - [facility] 07/11/2024 14:46:17 What Is [...] Diagnosis/Indication Diagnosis SNOMED-CT Code Diagnosis ICD10 Code [id number] ROSALIE Rivas [address] [place] [address] 07/11/2024 14:37:21 07/11/2024 15:28:24 Community acquired pneumonia 242569970 J18.9 [id number] ROSALIE Rivas [address] [place] [address] 07/22/2024 14:39:53 07/22/2024 15:18:16 Mild dehydration 3258930079 108 E86.0 Health Concerns Section Related Observation LastModified by Organization Detai ls LastModified Time None Recorded Concern Status LastModified by Organization Details LastModified Time None Recorded Payers Encounter Date Sequence Insurance Name Policy Number Policy Cosme Covered Member ID Cosme Member ID Guarantor Name 07/22/2024 1 [facility]: [place] BLUE (MEDICARE REPLACEMENT HMO) [id number] Sandra Herrera [id number] Sandra Herrera Notes Date Note Type Note Provider Name and Address Organization Details Recorded Time 07/22/2024 text/html 84 y/o female here to recheck after being treated for pna 10 days ago. She is having some mid back pain. Cough has resolved completely. Daughter is concerned that her temp has been up and down, between 99-100 ROSALIE Rivas [address] [place], [address], PA - [facility] 07/22/2024 15:12:25 OBGyn Episode No OBEpisode recorded.
--- OUTSIDE RECORDS SUMMARY | 2024-08-06 19:45 | XMS_ITS ---
[facility] Organization [facility] Address [address] [place] [address] Care Team Providers Care Stone Banker Name Role Phone Hitesh CRENSHAW Medanales Primary Care Provider Patti Arellano Unavailable [phone] Allergies Allergen (clinical drug ingredient) Drug/Non Drug Allergy documented on EMR Reaction Allergy Type Onset Date Status sulfamethoxazole / trimethoprim Bactrim Unknown Drug Allergy Active ciprofloxacin Cipro Unknown Drug Allergy Act fortino Shrimp Flavor Unknown Drug Allergy Act fortino REASON FOR VISIT At Risk Footcare, Painful Nail(s) aggrevated by shoes and causing difficulty standing/walking. Medications Medication SIG (Take, Route, Frequency, Duration) Notes Start Date End Date Status Furosemide 20 MG Oral for 90 Days Active Vitamin D Active Metoprolol Succinate ER 100 MG Oral for 90 Days Active Levothyroxine Sodium 75 MCG Oral for 90 Days Active Donepezil HCl 10 MG Oral for 90 Active B-Complex Active Eliquis 2.5 MG as directed Orally Active Warfarin Sodium 10 MG 1 tablet Orally On ce a day for 48 days Not-Taking Social History Tobacco Use: Social History Observation Description Date Details (start date - stop date) Never Smoker NA - NA Tobacco Use/Smoking Question Answer Notes Are you a: nonsmoker Additional Findings: Tobacco Non-User Current no n-smoker Alcohol Screen Question Answer Notes Did you have a drink containing alcohol in the p ast year? No Points 0 Interpretation Negative Tobacco use other than smoking: Question Answer Notes Are you an other tobacco user? No Vital Signs Height 5 ft 2 in in 08/01/2024 Weight 83 lbs 08/01/2024 BMI 15.18 kg/m2 08/01/2024 Encounters Encounter Location Date Provider Diagnosis [facility] [place] [address] [place] [address] 08/01/2024 Patti Andrade Atherosclerosis of kiana artery of both lower extremities, with unspecified presence of clinical manifestation I70.203 ; Tinea unguium B35.1 ; Pain in right toe(s) M79.674 and Pain in left toe(s) M79.675 Assessments Encounter Date Diagnosis (ICD Code) Assessment Notes Treatment Notes Treatment Clinical Notes Section Notes 08/01/2024 Atherosclerosis of kiana artery of both lower extremities, with unspecified presence of clinical manifestation (ICD-10 - I70.203) 08/01/2024 Tinea unguium (ICD-10 - B35.1) 08/01/2024 Pain in right toe(s) (ICD-10 - M79.674) 08/01/2024 Pain in left toe(s) (ICD-10 - M79.675) Plan Of Treatment Next Appt Details Follow Up: 2 Months, Reason: Provider Name:Patti ponce, 10/17/2024 02:00:00 PM, [address] [place] [address], [id number], Procedure Notes * Category Sub-Category Detail Notes Keratoma Treatment Parring or Cutting o f Benign Hyperkeratotic Lesion(s) (-56) 2-4 Lesions - Due to the at risk nature of the patients medical condition as documented in the exam findings, performance of this keratoderma treatment is medically necessary as its management by an unskilled/untrained nonprofessional would put this patients foot and overall health at risk. Therefore, the benign hyperkeratotic lesions, ( 2) in total, locations as stated and described in the exam, were pared, and/or cut utilizing a sterile 15 blade, tissue nippers, and/or power [employer] instrumentation - 64723 Debride Nails 1-5 Procedure: Due to the cli nical pathology outlined in the exam findings, performance of this nail treatment is medically necessary as its management by an unskilled/untrained nonprofessional would put this patients foot and overall health at risk. Therefore, debridement to affected nail(s), as described in exam, was performed extensively to reduce/remove overall nail length, girth, thickness, subungual debris, and necrotic tissue, by manual and/or electrical means through the use of a nail nipper and/or dremel stylegrinder, to a more viable healthy nail plate or bed tissue 5 nails or fewer in number. Silver nitrate was used for any petechial bleeding as necessary. Definitive antifungal treatment options, both pharmaceutical and surgical, have been reviewed and discussed with the patient. The patient solely prefers the use of intermittent/as needed professional debridement services for their nail condition and understands that additional periodic treatments may be required as necessary to maintain effective symptomatic relief - 74235 Nail Reduction Nail Reduction Trimming of dyst rophic nails performed to reduce/remove overall nail length and girth, by manual and electrical means with use of a nail nipper and/or dremel, to more viable healthy nail plate or bed tissue 6-10 (S4027-N9) Progress Notes * Sandra HERRERA ADOB: [birth year] (84 yo F)Acc No.[id number]:08/01/2024 Progress Note Patient:?Sandra HERRERA Provider:?Patti Andrade DPM :1940???Age:84 Y???Sex:Female D ate:08/01/2024 Address:[address] [place] [address] Pcp:Darrian Proctor MD Subjective: * Chief Complaints: * ???At Risk FootcarePainful N ail(s) aggrevated by shoes and causing difficulty standing/walking. * HPI: ???At Risk footcare:?Pt States Last PCP Visit:?Date?04/04/2024 * ROS:?General/Constitutional:?Nausea?denies.?Vomiting?denies.?Hunger Thirst?denies.?Loss appetite?denies.?Chills?denies.?Fatigue?denies.?Fever?denies.?Night Sweats?denies.?Unexplained weight loss?denies.?Unexplained weight gain?denies.?HEENTM:?Dentures?denies.?Dizziness?denies.?Glasses/contacts?admits.?Retinopathy?de nies.?Blurred/double vision?denies.?TMJ?denies.?Discharge/drainage?denies.?Implants?denies.?Sore throat?denies.?Dental implants?denies.?Hard of hearing ?denies.?Difficulty chewing/swallowing/speaking?denies.?Nose bleeds?denies.?Sore mouth?denies.?Respiratory:?On Oxygen?denies.?Pneumonia/pleurisy?denies.?Bronchitis?denies.?Emphysema?denies.?C oughing?denies.?Cough blood?denies.?Shortness of breath?admits.?Wheezing?denies.?Cardiovascular:?Pacemaker?denies.?MVP?denies.?WPW?denies.?CHF?admits.?Heart attack?denies.?Septal defect?denies.?Rapid beat?denies.?Chest pain ?denies.?Atrial Fib.?admits.?Murmur/Palpitations?admits.?Gastrointestinal:?Hemorrhoids?denies.?Stomach/Abdominal pain?denies.?Dark blood stool?denies.?Irritable bowel ?denies.?Constipation?denies.?Diarrhea?denies.?Hematology:?Swelling?denies.?Clots?denies.?Varicose Veins?admits.?Bruising?denies.?Bleeding problem?denies.?Genitourinary:?Blood urine?denies.?Frequent/Painfu/urination/bladder control?denies.?Kidney stones?denies.?Infection (UTI)?denies.?Nephropathy?denies.?sex trans dis (STD)?denies.?Prostate?denies.?Musculoskeletal:?Hammertoes?denies.?Bunions?denies.?Back Pain?denies.?Muscle Cramps/ Resting?denies.?Muscle cramps / walking?denies.?Generalized aches and pains?denies.?Weakness?denies.?Integ.:?Christensen?denies.?Scars?denies.?Corns/calluses?denies.?Ingrown nails?admits.?Painful nails?denies.?Open Sores?denies.?Rashes?denies.?Neurologic:?Difficulty sleeping?denies.?Brain disorder?denies.?Numbness?denies.?Balance trouble?denies.?Confusion?admits.?Fainting/blackouts?denies.?Tingling?denies.?Tr emors?denies.? * Medical History:? * Surgical History:?tubal liga tion 1970mastectomy 1999torn knee ligament micro clips attached to mitral valve 06/16/2020 * Hospitalization/Major Diagno stic Procedure:?[facility] [place]- Right hand infection 05/01-05/04/24 * Family History:?Mother: dece ased.?Father: .? * Social History:?Tobacco Use:?Tobacco Use/Smoking?Are you a:?nonsmoker ?Additional Findings: Tobacco Non-User?Current non-smoker ?Tobacco use other than smoking?Are you an other tobacco user??No ???Drugs/Alcohol:?Drugs?Have you used drugs other than those for medical reasons in the past 12 months??No ?Alcohol Screen?Did you have a drink containing alcohol in the past year??No ?Points?0 ?Interpretation?Negative ???Miscellaneous:?Caffeine: no. ?Children: yes, 8. ?Exercise: yes, walking, housework, gardening/yard work,glider. ?Marital status: single. ?Occupation: Retired- [employer] at the [employer]. * Medications:?TakingEliquis 2 .5 MG Tablet as directed Orally B-Complex Vitamin D Furosemide 20 MG Tablet Oral Levothyroxine Sodium 75 MCG Tablet Oral Metoprolol Succinate ER 100 MG Tablet Extended Release 24 Hour Oral Donepezil HCl 10 MG Tablet Oral Taking Eliquis 2.5 MG Tablet as directed Orally Taking B-Complex Taking Vitamin D Taking Furosemide 20 MG Tablet Oral Taking Levothyroxine Sodium 75 MCG Tablet Oral Taking Metoprolol Succinate ER 100 MG Tablet Extended Release 24 Hour Oral Taking Donepezil HCl 10 MG Tablet Oral Not-Taking/PRNWarfarin Sodium 10 MG Tablet 1 tablet Orally Once a day Medication List reviewed and reconciled with the patientNot-Taking/PRN Warfarin Sodium 10 MG Tablet 1 tablet Orally Once a day Medication List reviewed and reconciled with the patient * Allergies:?CiproBactriRadames Rand[Allergies Verified] Objective: * Vitals:?Ht: 5 ft 2 in, Wt: 8 3, BMI: 15.18, Shoe size: 6, Ht-cm: 157.48 cm, Wt- k.65 kg. * Examination: ???Vascular: ?DP PULSES(B):? 0/4, B/L.?PT PULSES(B):? 0/4, B/L.?CAPILLARY FILL TIME:? delayed, all digits, B/L.?TROPHIC CONDITION-TEXTURE/ELASTICITY/TURGOR/HAIR GROWTH(B):? decreased, B/L.?TEMPERTURE GRADIENT(C):? decreased, cool to cool, proximal to distal, B/L.?CLAUDICATION(C):?denies, B/L.?REST PAIN:?denies, B/L.?Nails: ?NAILS are:?Elongated, overgrown, dystrophic, lytic, greater than 3mm thick, discolored and friable with crumbly malodorous subungual debris, with pain on palpation TA T5 remaining nails are elongated, overgrown, dystrophic.?Dermatologic: ?SKIN FINDINGS:?Skin exam reveals Keratotic lesion(s) located at, SUB MTH (s), 5, B/L.? Assessment: * Assessment: 1.?Tinea unguium - B35.1???2 .?Atherosclerosis of kiana artery of both lower extremities, with unspecified presence of clinical manifestation - I70.203 (Primary)???3.?Pain in right toe(s) - M79.674???4.?Pain in left toe(s) - M79.675??? Plan: * Treatment: * Procedures:?Debride Nails 1-5:?Procedure:?Due to the clinical pathology outlined in the exam findings, performance of this nail treatment is medically necessary as its management by an unskilled/untrained nonprofessional would put this patients foot and overall health at risk. Therefore, debridement to affected nail(s), as described in exam, was performed extensively to reduce/remove overall nail length, girth, thickness, subungual debris, and necrotic tissue, by manual and/or electrical means through the use of a nail nipper and/or dremel stylegrinder, to a more viable healthy nail plate or bed tissue 5 nails or fewer in number. Silver nitrate was used for any petechial bleeding as necessary. Definitive antifungal treatment options, both pharmaceutical and surgical, have been reviewed and discussed with the patient. The patient solely prefers the use of intermittent/as needed professional debridement services for their nail condition and understands that additional periodic treatments may be required as necessary to maintain effective symptomatic relief - 57501.?Keratoma Treatment:?Parring or Cutting of Benign Hyperkeratotic Lesion(s)?(-56) 2-4 Lesions - Due to the at risk nature of the patients medical condition as documented in the exam findings, performance of this keratoderma treatment is medically necessary as its management by an unskilled/untrained nonprofessional would put this patients foot and overall health at risk. Therefore, the benign hyperkeratotic lesions, ( 2) in total, locations as stated and described in the exam, were pared, and/or cut utilizing a sterile 15 blade, tissue nippers, and/or power dremel instrumentation - 25573.?Nail Reduction:?Nail Reduction?Trimming of dystrophic nails performed to reduce/remove overall nail length and girth, by manual and electrical means with use of a nail nipper and/or dremel, to more viable healthy nail plate or bed tissue 6-10 (G0127- Q8).? * Procedure Codes:?G0127 RENETTA ING DYSTROPHIC NAILS ANY #, Modifiers: XS , [id number] DEBRIDE NAIL, 1-5, Modifiers: XS 80072 TRIM SKIN LESIONS, 2 TO 4, Modifiers: XS , Q8 * Follow Up:?2 Months * Images: * Sign off status: Completed true * Provider:?Patti Andrade DPM Date:?01/2024 Generated for Bella interiano/Svetlana/Valerie on:?08/06/2024 07:44 PM EST History and Physical Notes * HPI (History of Present Illness) Category Sub-Category Detail Notes Category Not es At Risk footcare Pt States Last PCP Visit: Date: Examination Category Sub-Category Detail Notes Category Not es Dermatologic SKIN FINDINGS: Skin exam reveal s Keratotic lesion(s) located at, SUB MTH (s), 5, B/L Vascular DP PULSES(B): 0/4, B/L PT PULSES(B): 0/4, B/L CAPILLARY FILL TIME: delayed, all digits , B/L TEMPERTURE GRADIENT(C): decreased, cool to cool, proximal to distal, B/L TROPHIC CONDITION-TEXTURE/ELASTICITY/TURGOR/HAIR GROWTH(B): decreased, B/L CLAUDICATION(C): denies, B/L REST PAIN: denies, B/L Nails NAILS are: Elongated, overg rown, dystrophic, lytic, greater than 3mm thick, discolored and friable with crumbly malodorous subungual debris, with pain on palpation TA T5 remaining nails are elongated, overgrown, dystrophic
--- OUTSIDE RECORDS SUMMARY | 2024-08-06 19:45 | XMS_ITS | Patient Health Record ---
Author Organization [facility] Address [address] [place] [address] Care Team Providers Care Chief Load Dispatcher Name Role Phone Darrian Proctor MD Primary Care Provider Patti Arellano Unavailable [phone] Allergies Allergen (clinical drug ingredient) Drug/Non Drug Allergy documented on EMR Reaction Allergy Type Onset Date Status sulfamethoxazole / trimethoprim Bactrim Unknown Drug Allergy Active ciprofloxacin Cipro Unknown Drug Allergy Act fortino Shrimp Flavor Unknown Drug Allergy Act fortino Reason For Referral Diagnosis 1 Pain in unspecified foot (M79.673) Referring Provider First Name Darrian Referring Provider Last Name Hitesh Referred Organization [facility] Referred Provider Patti Andrade Referred Address [address],[place], [place],[address], Referred Provider Specialty Podiatry Referral Priority Routine Medications Medication SIG (Take, Route, Frequency, Duration) Notes Start Date End Date Status B-Complex Active Eliquis 2.5 MG as directed Orally Active Furosemide 20 MG Oral for 90 Days Active Vitamin D Active Metoprolol Succinate ER 100 MG Oral for 90 Days Active Levothyroxine Sodium 75 MCG Oral for 90 Days Active Warfarin Sodium 10 MG 1 tablet Orally On ce a day for 48 days Not-Taking Donepezil HCl 10 MG Oral for 90 Active Social History Tobacco Use: Social History Observation [...] Are you an other tobacco user? No Problems Problem Type SNOMED Code ICD Code Onset Dates Problem Status W/U Status Risk Notes Problem Acquired hammer toe of right foot ([id number] 93653) Other hammer toe(s) (acquired), right foot (M20.41) Active confirmed Problem Acquired hammer toe of left foot ([id number] 37385) Other hammer toe(s) (acquired), left foot (M20.42) Active confirmed Problem Atherosclerosis of big sandy artery of both lower extremities, with unspecified presence of clinical manifestation (I70.203) Active confirmed Vital Signs Blood pressure diastolic 72 mm Hg 05/16/2024 Height 5 ft 2 in in 08/01/2024 Blood pressure systolic 122 mm Hg 05/16/2024 Weight 83 lbs 08/01/2024 BMI 15.18 kg/m2 08/01/2024 Encounters Encounter Location Date Provider Diagnosis [address] [address] 12/18/2023 Patti Perica Atherosclerosis of big sandy artery of both lower extremities, with unspecified presence of clinical manifestation I70.203 ; Other hammer toe(s) (acquired), right foot M20.41 ; Tinea unguium B35.1 ; Pain in right toe(s) M79.674 ; Pain in left toe(s) M79.675 and Other hammer toe(s) (acquired), left foot M20.[address] [address] 03/04/2024 Patti Perica Atherosclerosis of big sandy artery of both lower extremities, with unspecified presence of clinical manifestation I70.203 ; Tinea unguium B35.1 ; Pain in right toe(s) M79.674 and Pain in left toe(s) M79.[address] [address] 05/16/2024 Patti Perica Atherosclerosis of big sandy artery of both lower extremities, with unspecified presence of clinical manifestation I70.203 ; Tinea unguium B35.1 ; Pain in right toe(s) M79.674 and Pain in left toe(s) M79.675 [facility] [address] [address] 08/01/2024 Patti Andrade Atherosclerosis of big sandy artery of both lower extremities, with unspecified presence of clinical manifestation I70.203 ; Tinea unguium B35.1 ; Pain in right toe(s) M79.674 and Pain in left toe(s) M79.675 [facility] [address] 12/12/2023 Patti Perica [facility] [address] 01/03/2024 [facility] [address] 03/04/2024 Patti Andrade Assessments Encounter Date Diagnosis (ICD Code) Assessment Notes Treatment Notes Treatment Clinical Notes Section Notes 12/18/2023 Other hammer toe(s) (acquired), right foot (ICD-10 - M20.41) 12/18/2023 Atherosclerosis of big sandy artery of both lower extremities, with unspecified presence of clinical manifestation (ICD-10 - I70.203) 03/04/2024 Tinea unguium (ICD-10 - B35.1) 03/04/2024 Atherosclerosis of big sandy artery of both lower extremities, with unspecified presence of clinical manifestation (ICD-10 - I70.203) 05/16/2024 Tinea unguium (ICD-10 - B35.1) 05/16/2024 Atherosclerosis of big sandy artery of both lower extremities, with unspecified presence of clinical manifestation (ICD-10 - I70.203) 08/01/2024 Tinea unguium (ICD-10 - B35.1) 08/01/2024 Atherosclerosis of big sandy artery of both lower extremities, with unspecified presence of clinical manifestation (ICD-10 - I70.203) 05/16/2024 Pain in right toe(s) (ICD-10 - M79.674) 08/01/2024 Pain in right toe(s) (ICD-10 - M79.674) 03/04/2024 Pain in right toe(s) (ICD-10 - M79.674) 12/18/2023 Tinea unguium (ICD-10 - B35.1) 12/18/2023 Pain in right toe(s) (ICD-10 - M79.674) 03/04/2024 Pain in left toe(s) (ICD-10 - M79.675) 08/01/2024 Pain in left toe(s) (ICD-10 - M79.675) 05/16/2024 Pain in left toe(s) (ICD-10 - M79.675) 12/18/2023 Pain in left toe(s) (ICD-10 - M79.675) 12/18/2023 Other hammer toe(s) (acquired), left foot (ICD-10 - M20.42) Plan Of Treatment Next Appt Details Provider Name:Patti ponce, 10/17/2024 02:00:00 PM, [address] [place] [address], [address], Insurance Providers Payer Name Payer Address Payer Phone Subscriber Number Group Number Insured Name Patient Relationship to Insured Coverage Start Date Coverage End Date [facility] 65 Medicare Preferred [address] [place] [address] [id number] Sandra Herrera Self - patient is the insured Medical (General) History Medical History History ICD Code Cancer covid-19 Dementia Chicken pox thyroid congestive heart failure Surgical History Surgery Date(Month/Year) tubal ligation 1970 mastectomy 1998 torn knee ligament 1994 3 micro clips attached to mitral valve 1 Hospitalization History Reason Date(Month/Year) [facility] [place] [facility]- Right hand infection 05/01-05/04
--- OUTSIDE RECORDS SUMMARY | 2024-08-06 19:45 | XMS_ITS ---
Author Organization [facility] Address [address] [place] [address] Care Team Providers Care House Parent Name Role Phone Darrian Proctor MD Primary Care Provider Unava ilPatti Donald [phone] Encounters Encounter Location Date Provider Diagnosis [facility] [address] [place] [address] 03/11/2024 Patti Andrade Plan Of Treatment Next Appt Details Provider Name:Patti ponce, 10/17/2024 02:00:00 PM, [address] [place], [address], Progress Notes * Sandra HERRERA ADOB: (84 yo F)Acc No.[id number]:03/11/2024 Progress Note Patient:?Sandra HERRERA Provider:?Patti Andrade DPM :1940???Age:83 Y???Sex:Female D ate:03/11/2024 Address:[address] [place] [address] Pcp:Darrian Proctor MD Subjective: * Chief Complaints: * ??? * Medical History:? Objective: * Vitals:? Assessment: Plan: * Treatment: * Images: * The named appointment provid er may or may not be the originator of this progress note, and it is not deemed complete until electronically signed by the appointment provider. Sign off status: Pending * Provider:?Patti Andrade DPM Date:? Generated for Bella interiano/Svetlana/Valerie on:?08/06/2024 07:45 PM EST
--- OUTSIDE RECORDS SUMMARY | 2024-08-06 19:45 | XMS_ITS ---
Author Organization [facility] Address [address] [place] [address] Care Team Providers Care Padder Cushion Name Role Phone Hitesh CRENSHAW [place] Primary Care Provider Patti Arellano Unavailable [phone] Allergies Allergen (clinical drug ingredient) Drug/Non Drug [...] HCl 10 MG Oral for 90 Active Levothyroxine Sodium 75 MCG Oral for 90 Days Active Metoprolol Succinate ER 100 MG Oral for 90 Days Active Furosemide 20 MG Oral for 90 Days Active Vitamin D Active Eliquis 2.5 MG as directed Orally Active B-Complex Active Social History Tobacco Use: Social History Observation Description Date Details (start date - stop date) Never Smoker NA - NA Tobacco Use/Smoking Question Answer Notes Are you a: nonsmoker Additional Findings: Tobacco Non-User Current no n-smoker Tobacco use other than smoking: Question Answer Notes Are you an other tobacco user? No Vital Signs Height 5 ft 2 in in 05/16/2024 Weight 83 lbs 05/16/2024 BMI 15.18 kg/m2 05/16/2024 Blood pressure systolic 122 mm Hg 05/16/20 24 Blood pressure diastolic 72 mm Hg 024 Encounters Encounter Location Date Provider Diagnosis [facility] [address] [place] [address] 05/16/2024 Patti Andrade Atherosclerosis of big sandy artery of both lower extremities, with unspecified presence of clinical manifestation I70.203 ; Tinea unguium B35.1 ; Pain in right toe(s) M79.674 and Pain in left toe(s) M79.675 Assessments Encounter Date Diagnosis (ICD Code) Assessment Notes Treatment Notes Treatment Clinical Notes Section Notes 05/16/2024 Atherosclerosis of big sandy artery of both lower extremities, with unspecified presence of clinical manifestation (ICD-10 - I70.203) 05/16/2024 Tinea unguium (ICD-10 - B35.1) 05/16/2024 Pain in right toe(s) (ICD-10 - M79.674) 05/16/2024 Pain in left toe(s) (ICD-10 - M79.675) Plan Of Treatment Next Appt Details Follow Up: 2 Months, Reason: Provider Name:Patti ponce, 10/17/2024 02:00:00 PM, [address] [place] [address], [phone], Procedure Notes * Category Sub-Category Detail Notes Debride Nails 1-5 Procedure: Nail debrideme nt performed extensively to reduce/remove overall nail length, girth, thickness, subungual debris, and necrotic tissue, by manual and electrical means through the use of a nail nipper and/or dremel, to more viable healthy nail plate or bed tissue 1-5. Silver nitrate used for any petechial bleeding as necessary. Patient chooses, no pharmaceutical tx (25277) Nail Reduction Nail Reduction Trimming of dyst rophic nails performed to reduce/remove overall nail length and girth, by manual and electrical means with use of a nail nipper and/or dremel, to more viable healthy nail plate or bed tissue 6-10 (S4019-B9) Progress Notes * Sandra HERRERA ADOB: [birth year] (84 yo F)Acc No.[id number]:05/16/2024 Progress Note Patient:?Sandra Herrera Provider:?Patti Andrade DPM :1940???Age:84 Y???Sex:Female D ate:05/16/2024 Address:[address], [place] Pcp:Darrian Proctor MD Subjective: * Chief Complaints: [...] History:?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 * Social History:?Tobacco Use:?Tobacco Use/Smoking?Are you a:?nonsmoker ?Additional Findings: Tobacco Non-User?Current non-smoker ?Tobacco use other than smoking?Are you an other tobacco user??No ???Miscellaneous:?no Caffeine. ?Children: yes, 8. ?Exercise: yes, walking, housework, gardening/yard work,glider. ?Marital status: single. ?Occupation: Retired- [employer] at the [employer]. * Medications:?TakingEliquis 2 .5 MG Tablet as [...] MG Tablet 1 tablet Orally Once a dayMedication List reviewed and reconciled with the patientNot-Taking/PRN Warfarin Sodium 10 MG Tablet 1 tablet Orally Once a dayMedication List reviewed and reconciled with the patient * Allergies:?CiproBactrimShrim p Navyes[Allergies Verified] Objective: * Vitals:?Ht: 5 ft 2 in, Wt: 8 3, BMI: 15.18, Shoe size: 6, BP: 122/72 mm Hg, Ht- cm: 157.48 cm, Wt-k.65 kg. * Examination: ???Vascular: ?DP PULSES(B):? 0/4, B/L.?PT PULSES(B):? 0/4, B/L.?CAPILLARY FILL TIME:? delayed, all digits, B/L.?TROPHIC CONDITION-TEXTURE/ELASTICITY/TURGOR/HAIR GROWTH(B):? decreased, B/L.?TEMPERTURE GRADIENT(C):? decreased, cool to cool, proximal to distal, B/L.?CLAUDICATION(C):?denies, B/L.?REST PAIN:?denies, B/L.?Nails: ?NAILS are:?Elongated, overgrown, dystrophic, lytic, greater than 3mm thick, discolored and friable with crumbly malodorous subungual debris, with pain on palpation TA T5 remaining nails are elongated, overgrown, dystrophic.? Assessment: * Assessment: 1.?Tinea unguium - B35.1?2.? Atherosclerosis of big sandy artery of both lower extremities, with unspecified presence of clinical manifestation - I70.203?3.?Pain in right toe(s) - M79.674?4.?Pain in left toe(s) - M79.675? Plan: * Treatment: * Procedures:?Debride Nails 1-5:?Procedure:?Nail debridement performed extensively to reduce/remove overall nail length, girth, thickness, subungual debris, and necrotic tissue, by manual and electrical means through the use of a nail nipper and/or dremel, to more viable healthy nail plate or bed tissue 1-5. Silver nitrate used for any petechial bleeding as necessary. Patient chooses, no pharmaceutical tx (50838).?Nail Reduction:?Nail Reduction?Trimming of dystrophic nails performed to reduce/remove overall nail length and girth, by manual and electrical means with use of a nail nipper and/or dremel, to more viable healthy nail plate or bed tissue 6-10 (G0127- Q8).? * Procedure Codes:?G0127 RENETTA ING DYSTROPHIC NAILS ANY #, Modifiers: XS , [id number] DEBRIDE NAIL, 1-5, Modifiers: XS * Follow Up:?2 Months * Images: * Sign off status: Completed true * Provider:Denisa Andrade, DPM Date:? Generated for Mariani laisha/Svetlana/eTransmitting on:?08/06/2024 07:44 PM EST History and Physical Notes * HPI (History of Present Illness) Category Sub-Category Detail Notes Category Not es At Risk footcare Pt States Last PCP Visit: Date: Examination Category Sub-Category Detail Notes Category Not es Dermatologic SKIN FINDINGS: Vascular DP PULSES(B): 0/4, B/L PT PULSES(B): [...]
--- OUTSIDE RECORDS SUMMARY | 2024-08-06 19:45 | XMS_ITS | Continuity of Care Document ---
Author Organization [facility] Dickson s, [address] Address [address] [place] [address] Assessment No assessment recorded. Plan of Treatment Reminders Order Date Submit Date Provider Last Modified By Organization Details Last Modified Time Details Appointments None recorded. Lab rapid flu (A+B) 2023 [email or web address] [facility], [address] [place] [address], [phone], 4 15:21:36 SARS CoV 2 (COVID-19) Ag, QL, IA, upper respiratory specimen 2023 [email or web address] [facility], [address] [place] [address], [phone], 4 15:21:36 Referral None recorded. Procedures None recorded. Surgeries None recorded. Imaging None recorded. Medication Orders amoxicillin 875 mg-potassiu m clavulanate 125 mg tablet [address] [facility], [address] [place] [address], [address], 4 14:55:34 albuterol sulfate HFA 90 mcg/actuati on aerosol inhaler 2023 [facility], [address] [place] [address], [address], 4 15:21:39 azithromyci n 250 mg tablet [address] [facility] [address] [facility], [address] [place] [address], [address], 14:55:41 Patient TargetsNo targets recorded. Patient Instructions Encounter Date Encounter Id Patient Instructions Last Modified By Organization Details Last Modified Time 07/11/2024 [id number] pneumonia: care instructions [email or web address] Not available 07/11/2024 15:21:36 Reason for Referral None Reported. Results Created Date Observation Date Name Description Value Unit Range Abnormal Flag Note LastModifiedBy Organization Detail LastModifiedTime 07/11/20 24 07/11/2024 SARS CoV 2 (COVI D-19) Ag, QL, IA, upper respi rator y speci men Unknown Analyte negati ve Not Available [address] [place], [place] [address] [place], [address], 07/11/2024 14:46:48 07/11/2007/11/2024 SARS CoV 2 (COVI D-19) Ag, QL, IA, upper respi rator y speci men Unknown Analyte yes Not Available [address] [place], [place] [address] [place], [phone], 07/11/2024 14:46:48 07/11/2007/11/2024 rapid flu (A+B) Unknown Analyte negati ve Not Available [address] [place] [address], [phone], 07/11/2024 14:46:41 07/11/20 24 07/11/2024 rapid flu (A+B) Unknown Analyte negati ve Not Available [address] [place] [address], [phone], 07/11/2024 14:46:41 Result Notes None recorded. Problems Name Problem SNOMED Code Status Onset Date Resolution Date Notes Provider Name and Address Organization Details Recorded Time Congestive heart failure 93349589 Active 024 Sandra stephens PA - [facility] 14:45:47 Problem Notes None recorded. Medical Equipment None Reported. Allergies Allergen ID Allergen Name Allergen Category Reaction Reaction Severity Criticality Documentation Date Start Date Code Code System Note Provider Name and Address Organization Details Recorded Time 9326949 Cipro medicatio n Not available Not available Not available 07/11/202418865 3 RxNorm Sandra Dariusz null, PA - [facility] 4 14:43:17 6294579 scallop allergeni c extract food Not available Not available Not available 07/11/2024 45962 6 RxNorm Sandra Dariusz null, PA - [facility] 4 14:43:30 [id number] Substance with sulfonami de structure and antibacte rial mechanism of action (substanc e) medicatio n Not available Not available Not available 07/11/2024 14707 8003 SNOMED Sandra Dariusz null, PA - [...] Last Updated DateTime 157.48 cm 15 kg/m2 80824.5 7 g 68 /min 18 /min 100 % 100 % 99 [degF] 134 mm[Hg] 84 mm[Hg] Sandra Arzola PA - [facility] 14:49:58 Social History Question Answer Notes LastModified by [...] Diagnosis/Indication Diagnosis SNOMED-CT Code Diagnosis ICD10 Code [id number] ROSALIE Rivas [address] [facility] [place] [address] 07/11/2024 14:37:21 07/11/2024 15:28:24 Community acquired pneumonia 743091153 J18.9 Health Concerns Section Related Observation LastModified by Organization Detai ls LastModified Time None Recorded Concern Status LastModified by Organization Details LastModified Time None Recorded Payers Encounter Date Sequence Insurance Name Policy Number Policy Cosme Covered Member ID Cosme Member ID Guarantor Name 07/11/2024 1 [facility]: MEDICARE HMO BLUE (MEDICARE REPLACEMENT HMO) [id number] Sandra Herrera [id number] Sandra Herrera Notes Date Note Type Note Provider Name and Address Organization Details Recorded Time 07/11/2024 text/html 84 y/o female here with cough, congestion and fevers for the past week, not improving. Has CHF, but symptoms are not similar to her usual flares ROSALIE Rivas [address] [place], [address], [place] - [facility] 07/11/2024 15:26:55 OBGyn Episode No OBEpisode recorded.
== END 2024-08-05 10:08 | disposition home or self-care (01) ==
LOC: HO.HMGCLDS 10:07
PROVIDERS: PCP Internal Medicine; Visit Provider Internal Medicine
DX: D64.9 Anemia, unspecified (principal); E78.00 Pure hypercholesterolemia, unspecified; I50.9 Heart failure, unspecified; E03.9 Hypothyroidism, unspecified; E53.8 Deficiency of other specified B group vitamins; E55.9 Vitamin D deficiency, unspecified
CPT/HCPCS: 36415; 80053; 80061; 81001; 82306; 82607; 82746; 83880; 84439; 84443; 85025

== ENCOUNTER 2024-08-12 10:40 | Outpatient (AMB) | payer MEDICARE, SELFPAY ==
[2024-08-12 10:43] VITALS: BP 118/78; PULSE 75; BMI 16.1
--- NOTE | 2024-08-12 10:43 | MHC.PC.OV ---
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 Accompanied by: Self / Same As Patient Allergies Sulfa (Sulfonamide Antibiotics) [Sulfa (Sulfonamides)] Allergy (Mild, Verified 08/12/24 11:32) RASH ciprofloxacin [Cipro] Allergy (Unknown, Verified 08/12/24 11:32) rash scallops Allergy (Unknown, Verified 08/12/24 11:32) Sick to the stomach Medication List - Last Reconciled 08/12/24 by Darrian Proctor MD apixaban (Eliquis) 2.5 mg PO BID 90 days cholecalciferol (vitamin D3) 25 mcg PO DAILY 90 days donepezil 10 mg PO DAILY 90 days furosemide 20 mg PO DAILY levothyroxine 75 mcg PO DAILY@0600 metoprolol succinate ER 100 mg PO DAILY 90 days vitamin B complex 1 tab PO DAILY Tobacco use date assessed: 08/12/24 Fall risk assessment: No Falls in past year Last assessed Fall Risk: 08/12/24 Dental Screening Dental Screen Date: 08/12/24 Did you have a dental visit in the last 12 months?: Yes Did you have a dental problem in the last 6 months where you did not have access to dental care?: No Was dental information given to patient?: Patient has dentist HPI 4 Month F/U HPI Details Patient comes in today for follow-up visit Her daughter states that patient had a bout of pneumonia last month and she was brought to a local urgent care center where they prescribed her some oral antibiotics that eventually cleared up her pneumonia Patient states that she currently feels okay She denies any headaches or dizziness; denies any fever or sore throat Denies any chest pains, no increased shortness of breath No nausea /vomiting, no abdominal pain No change in bowel habits noted Needs her Eliquis Rx refilled She had her follow-up labs done last week - to discuss her results [facility] Medical History (Updated 08/12/24 @ 12:39 by Darrian Proctor MD) Mitral regurgitation Cataract of both eyes Anticoagulated on Coumadin Petechial rash Petechial rash Enlarged RV (right ventricle) Tricuspid regurgitation Alzheimer's disease Irritable bowel syndrome (IBS) Osteoporosis Chronic kidney disease (CKD), stage III (moderate) Pure hypercholesterolemia Hypothyroidism Chronic atrial fibrillation CHF due to valvular disease Surgical History Status post implantation of mitral valve leaflet clip (~06/16/20) Hx of tubal ligation Hx of left mastectomy Family History Father Hx of blood clots Mother Hx of blood clots Social History Household Members: Other Household Members Other:: son Housing: House Do you presently have visiting nurse or other home services: No Alcohol intake: never Patient Tobacco Use Status: Never used Tobacco e-Cigarette/Vaping Use: Never Used Second Hand Smoke Exposure: No Advance Directives Date on File: 08/11/22 service: No Current occupational status: retired Cognitive needs: No Hearing needs: No Vision needs: Yes Questionnaire PHQ-9 Over the last 2 weeks, how often have you been bothered by any of the following problems? 1. Little interest or pleasure in doing things: not at all 2. Feeling down, depressed, or hopeless: not at all 3. Trouble falling or staying asleep, or sleeping too much: not at all 4. Feeling tired or having little energy: several days 5. Poor appetite or overeating: not at all 6. Feeling bad about yourself - or that you are a failure or have let yourself or your family down: not at all 7. Trouble concentrating on things, such as reading the newspaper or watching television: several days 8. Moving or speaking so slowly that other people could have noticed. Or the opposite - being so fidgety or restless that you have been moving around a lot more than usual: not at all 9. Thoughts that you would be better off or of hurting yourself in some way: not at all Total score: 2 Depression Screening Interpretation: Negative Depression Screening Done: Yes 83124 - PHQ-9 Billing: Yes Source: Developed by Drs. Freedom Yung, Radha Herrera, Adi Anand and colleagues, with an educational alejandro from [employer]. Thrive Questionnaire Date Thrive assessed: 08/12/24 I am a: Patient What is your living situation today?: I have a steady place to live Within the past 12 months, did the food you bought not last and you didn't have the money to get more?: Never true Within the past 12 months, did you worry whether your food would run out before you got money to buy more?: Never true Do you have trouble paying for medicines?: No Do you have trouble getting transportation to medical appointments?: No Do you have trouble paying your heating and electricity bill?: No Do you have trouble taking care of your child, family member or friend?: No Do you have trouble with day-to-day activities such as bathing, preparing meals, shopping, managing finances, etc.?: No Are you currently unemployed and looking for a job?: No Are you interested in more education?: No Please select the resources that you would like help with: None Currently or been in a relationship where the following occur: No concerns reported THRIVE Score: 0 AUDIT C Alcohol Use Questionnaire (AUDIT-C) 1. How often do you have a drink containing alcohol?: Never 3. How often do you have six or more drinks on one occasion?: Never Total Score: 0 Score Reviewed/Action Taken: Yes ALTON-7 AMB Questionnaire ALTON-7 Date ALTON - 7 assessed: 08/12/24 Feeling nervous, anxious, or on edge: 0 = Not at all Not being able to stop or control worryin = Not at all Worrying too much about different things: 0 = Not at all Trouble relaxin = Not at all Being so restless that it is hard to sit still: 0 = Not at all Becoming easily annoyed or irritable: 0 = Not at all Feeling afraid as if something awful might happen: 0 = Not at all Total ALTON-7 score (0-4 normal; 5-9 mild; 10-14 moderate; 15-21 severe): 0 Source: Developed by Drs. Freedom Yung, Radha Herrera, Adi Anand and colleagues, with an educational alejandro from [employer]. Review of Systems Const Denies chills, Denies difficulty sleeping, Denies fatigue, Denies fever(s) and Denies headache(s) ENT Denies dysphagia, Denies dizziness, Denies otalgia, Denies headache(s), Denies neck pain, Denies odynophagia and Denies sore throat Card Denies chest pain, Denies palpitations and Denies dyspnea Resp Denies chest congestion, Denies cough and Denies dyspnea GI Denies abdominal pain, Denies constipation, Denies dysphagia, Denies heartburn, Denies diarrhea, Denies nausea, Denies odynophagia and Denies vomiting Denies difficulty voiding, Denies nocturia, Denies dysuria and Denies urinary urgency Musc Denies back pain and Denies neck pain Skin/Breast Denies rash Neuro Denies confusion, Denies dizziness, Denies headache(s) and Reports memory loss (stable) Psych Denies confusion and Reports memory loss (stable) Endo Denies fatigue and Denies palpitations Physical exam (Primary Care) Vital Signs: Last Vital Signs Pulse 75 08/12/24 10:43 BP 118/78 08/12/24 10:43 Oxygen Delivery Method Room Air 08/12/24 10:43 BMI result Body Mass Index 16.1 Tobacco/Smoking Status: Tobacco use Status Tobacco use date assessed 08/12/24 08/12/24 10:48 Patient Tobacco Use Status Never used Tobacco 08/12/24 10:48 e-Cigarette/Vaping Use Never Used 08/12/24 10:48 PHQ-9: PHQ-9 Score PHQ-9: Total score 2 08/12/24 10:48 Depression Screening Interpretation: Negative Thrive Assessment: Date of Thrive Assessment Date Thrive assessed 08/12/24 08/12/24 10:48 Currently or been in a relationship where the following occur: No concerns reported Const General: no acute distress and alert; No confusion Orientation/consciousness: patient oriented x3 and No confusion HENMT Ears: TM's normal bilaterally and EAC's normal Throat: Yes posterior oropharynx normal and Yes tonsils normal (no TP congestion noted) Neck Neck: Yes supple and No lymphadenopathy Thyroid: Thyroid normal Resp Auscultation: clear to auscultation bilaterally, no rales and no wheezes Cardio Rate: regular rate Rhythm: abnormal rhythm irregularly irregular Heart sounds: Murmur heart sound present systolic III/, at the apex and at the left sternal border GI Palpation (GI): Soft to palpation and nontender Auscultation: normal bowel sounds General: Yes no CVA tenderness Back/Spine/Pelvis Back: no CVA tenderness Skin Rashes: no rashes Neuro General: patient oriented x3 and No confusion Extrem General: Yes no clubbing, cyanosis or edema Results Reviewed Results Reviewed: Laboratory Tests 08/05/24 08/05/24 07:00 10:40 WBC 4.5 L Hgb 12.4 Hct 40.1 Plt Count 182 Sodium 142 Potassium 4.7 Creatinine 1.11 Estimated GFR 47 Fasting Glucose 82 Calcium 8.5 D AST 51 H ALT 31 B-Natriuretic Peptide 1133 H Triglycerides 58 Cholesterol 170 LDL Cholesterol, Calc 93 HDL Cholesterol 66 Vitamin B12 785 25-OH Vitamin D Total 55.5 TSH 3.14 Free T4 1.36 Ur Specific Wolcott 1.020 Urine Protein 30 (1+) H Urine Glucose (UA) Negative Urine Blood Negative Urine Nitrite Negative Ur Leukocyte Esterase Negative Coding Level of Care Code Est Pt Level 4 (95587) Diagnoses Chronic atrial fibrillation I48.20 CHF due to valvular disease I50.9; I38 Nonrheumatic mitral valve regurgitation I34.0 Cardiac valve disease etiology: nonrheumatic Acquired hypothyroidism E03.9 Hypothyroidism type: acquired Pure hypercholesterolemia E78.00 Stage 3a chronic kidney disease N18.31 Chronic kidney disease stage 3 subtype: stage 3a (GFR 45-59) Age-related osteoporosis without current pathological fracture M81.0 Osteoporosis type: age-related Presence of current pathological fracture: without current pathological fracture Irritable bowel syndrome, unspecified type K58.9 Irritable bowel syndrome type: unspecified Elevated LFTs R79.89 Alzheimer's disease G30.9; F02.80 Additional Codes PHQ-9 - 85352 - PHQ-9 Billing: Yes ([id number]) Assessment & Plan Assessment & Plan (1) Chronic atrial fibrillation: Code(s): I48.20 - Chronic atrial fibrillation, unspecified Category: Medical Plan: Patient currently remains rate-controlled on Metoprolol ER 100 mg QD Continue long-term anticoagulation with Apixaban 2.5 mg BID - Rx refilled (2) CHF due to valvular disease: Code(s): I50.9 - Heart failure, unspecified; I38 - Endocarditis, valve unspecified Category: Medical Plan: Her symptoms have improved a lot since her MitraClip procedure back in May 2020 Reinforced fluid restriction Continue Furosemide 20 mg QD Echocardiogram done a few years ago (prior to her MitraClip procedure) showed ejection fraction to be between 60-65% but with severe mitral regurgitation, severe tricuspid regurgitation and biatrial enlargement Her most recent echocardiogram done in July 2023 revealed normal left ventricular systolic function, with the visually estimated ejection fraction to be between 55-60%. There is severe biatrial enlargement and atrial septal defect with left to right shunt and gradient of 17mmHg. There is also mild to moderate mitral valve regurgitation. Mitraclip is in place. Mean gradient of 7mmHg at 70/min. There is moderate tricuspid valve regurgitation. Mild pulmonary hypertension is present She is scheduled for repeat echocardiogram in October 2024 Follow up with cardiology as scheduled (3) Mitral regurgitation: Comment: Status post MitraClip Code(s): I34.0 - Nonrheumatic mitral (valve) insufficiency Category: Medical Qualifiers: Cardiac valve disease etiology: nonrheumatic Qualified Code(s): I34.0 - Nonrheumatic mitral (valve) insufficiency Plan: S/P MitraClip procedure at [facility] on 06/16/2020, followed by cardiac rehab, which patient states helped a lot Follow-up with cardiology as scheduled (4) Hypothyroidism: Code(s): E03.9 - Hypothyroidism, unspecified Category: Medical Qualifiers: Hypothyroidism type: acquired Qualified Code(s): E03.9 - Hypothyroidism, unspecified Plan: Continue Levothyroxine 75 mcg once a day Will recheck TFTs in 4 months for follow up (5) Pure hypercholesterolemia: Code(s): E78.00 - Pure hypercholesterolemia, unspecified Category: Medical Plan: Results of her labs done last week reviewed and discussed with patient Reinforced low cholesterol diet Patient was on Simvastatin in the past but this was discontinued during her hospitalization earlier this year and she prefers not to go back on it if possible Will continue to monitor her fasting lipid profile and labs regularly -? will recheck her labs in 4 months for follow-up (6) Chronic kidney disease (CKD), stage III (moderate): Code(s): N18.30 - Chronic kidney disease, stage 3 unspecified Category: Medical Qualifiers: Chronic kidney disease stage 3 subtype: stage 3a (GFR 45-59) Qualified Code(s): N18.31 - Chronic kidney disease, stage 3a Plan: Stable -? will continue to monitor her renal function regularly (7) Osteoporosis: Code(s): M81.0 - Age-related osteoporosis without current pathological fracture Category: Medical Qualifiers: Osteoporosis type: age-related Presence of current pathological fracture: without current pathological fracture Qualified Code(s): M81.0 - Age-related osteoporosis without current pathological fracture Plan: Her repeat BMD back in July 2016 showed a -16% decline in BMD compared to her numbers in 2013 Patient was referred to and seen by Endocrinology recently and recommended starting on Prolia but patient decided against taking any Rx due to their potential side effects Continue Caltrate 600+ D tablet chewable, 600-400 mg - unit 1 tablet twice a day Her most recent BMD done in 01/2021 revealed (+) osteoporosis based on the lowest T-score value of -3.2 in the lumbar spine Her BMD here in both the AP spine and femur have declined by 10% or more from her previous BMD In 2015 Follow-up with endocrinology as scheduled (8) Irritable bowel syndrome (IBS): Code(s): K58.9 - Irritable bowel syndrome, unspecified Category: Medical Qualifiers: Irritable bowel syndrome type: unspecified Qualified Code(s): K58.9 - Irritable bowel syndrome without diarrhea Plan: Patient has been taking Align (as recommended by Dr. Tolliver) and states that the medication helps a lot States that Dr. Tolliver recommended no further intervention -? last colonoscopy in 2008 was normal Follow up with GI (Dr. Tolliver)? as scheduled (9) Elevated LFTs: Code(s): R79.89 - Other specified abnormal findings of blood chemistry Category: Medical Plan: Patient's serum AST was again elevated on her recent labs and has increased slightly from previous She currently denies any acute GI symptoms Will just continue to monitor her LFTs for now and if her LFT elevation persists or gets worse, will consider sending her for abdominal US at her next visit for further evaluation Patient is advised to call [facility] if she starts experiencing any unusual and persistent GI symptoms at any time (10) Alzheimer's disease: Code(s): G30.9 - Alzheimer's disease, unspecified; F02.80 - Dementia in other diseases classified elsewhere, unspecified severity, without behavioral disturbance, psychotic disturbance, mood disturbance, and anxiety Category: Medical Plan: Continue Donepezil 5 mg once a day at bedtime Follow-up with Neurology as scheduled Plan Follow up in 4 months Orders: Orders Lipid Panel 4 Months E78.00 - Pure hypercholesterolemia, unspecified Thyroid Stimulating Hormone 4 Months E03.9 - Hypothyroidism, unspecified Free T4 (Free Thyroxine) 4 Months E03.9 - Hypothyroidism, unspecified Complete Blood Count Auto Diff 4 Months D64.9 - Anemia, unspecified Comprehensive Lucile. Panel Fast 4 Months E78.00 - Pure hypercholesterolemia, unspecified B Type Natriuretic Peptide 4 Months I50.9 - Heart failure, unspecified UA CC w/rflx Micro + Cult 4 Months R30.0 - Dysuria Medications: Changed From apixaban (Eliquis) 2.5 mg PO BID 60 tabs 5RF I48.20 - Chronic atrial fibrillation, unspecified To apixaban (Eliquis) 2.5 mg PO BID 90 days 180 tabs 3RF I48.20 - Chronic atrial fibrillation, unspecified
--- OUTSIDE RECORDS SUMMARY | 2024-08-12 10:47 | XMS_ITS | Continuity of Care Document ---
Author Organization [facility] Dickson s, [facility] Address [address] [place] [address] Assessment No assessment recorded. Plan of Treatment Reminders Order Date Submit Date Provider Last Modified By Organization Details Last Modified Time Details Appointments None recorded. Lab rapid flu (A+B) 2023 [email or web address], [address] [place] [address], [phone], 4 15:21:36 SARS CoV 2 (COVID-19) Ag, QL, IA, upper respiratory specimen 2023 [email or web address] [facility], [address] [place] [address], [phone], 4 15:21:36 Referral None recorded. Procedures None recorded. Surgeries None recorded. Imaging None recorded. Medication Orders amoxicillin 875 mg-potassiu m clavulanate 125 mg tablet [address] [facility], [address] [place] [address], [id number], 4 14:55:34 albuterol sulfate HFA 90 mcg/actuati on aerosol inhaler 2023 [facility], [address] [place] [address], [id number], 4 15:21:39 azithromyci n 250 mg tablet [address] [facility], [address] [place] [address], [id number], 14:55:41 Patient TargetsNo targets recorded. Patient Instructions Encounter Date Encounter Id Patient Instructions Last Modified By Organization Details Last Modified Time 07/11/2024 [id number] pneumonia: care instructions [email or web address] Not available 07/11/2024 15:21:36 Reason for Referral None Reported. Results Created Date Observation Date Name Description Value Unit Range Abnormal Flag Note LastModifiedBy Organization Detail LastModifiedTime 07/11/20 24 07/11/2024 SARS CoV 2 (COVI D-19) Ag, QL, IA, upper respi rator y speci men Unknown Analyte negati ve Not Available [address] [place], [place] [address] [place], [phone], 07/11/2024 14:46:48 07/11/2007/11/2024 SARS CoV 2 (COVI D-19) Ag, QL, IA, upper respi rator y speci men Unknown Analyte yes Not Available [address] [place], [place] [address] [place], [phone], 07/11/2024 14:46:48 07/11/2007/11/2024 rapid flu (A+B) Unknown Analyte negati ve Not Available [address] [place] [address], [phone], 07/11/2024 14:46:41 07/11/20 24 07/11/2024 rapid flu (A+B) Unknown Analyte negati ve Not Available [address] [place] [address], [phone], 07/11/2024 14:46:41 Result Notes None recorded. Problems Name Problem SNOMED Code Status Onset Date Resolution Date Notes Provider Name and Address Organization Details Recorded Time Congestive heart failure [id number] Active 024 Sandra stephens PA - [facility] 14:45:47 Problem Notes None recorded. Medical Equipment None Reported. Allergies Allergen ID Allergen Name Allergen Category Reaction Reaction Severity Criticality Documentation Date Start Date Code Code System Note Provider Name and Address Organization Details Recorded Time [id number] Cipro medicatio n Not available Not available Not available 07/11/202429821 3 RxNorm Sandra Dariusz null, PA - [facility] 4 14:43:17 [id number] scallop allergeni c extract food Not available Not available Not available 07/11/2024 48415 6 RxNorm Sandra Dariusz null, PA - [facility] 4 14:43:30 [id number] Substance with sulfonami de structure and antibacte rial mechanism of action (substanc e) medicatio n Not available Not available Not available 07/11/2024 32669 8003 SNOMED Sandra Dariusz null, PA - [...] Last Updated DateTime 157.48 cm 15 kg/m2 30069.5 7 g 68 /min 18 /min 100 % 100 % 99 [degF] 134 mm[Hg] 84 mm[Hg] Sandra Arzola PA - [facility] 14:49:58 Social History Question Answer Notes [...] Diagnosis/Indication Diagnosis SNOMED-CT Code Diagnosis ICD10 Code [id number] ROSALIE Rivas [address] [facility] [place] [address] 07/11/2024 14:37:21 07/11/2024 15:28:24 Community acquired pneumonia [id number] J18.9 Health Concerns Section Related Observation LastModified by Organization Detai ls LastModified Time None Recorded Concern Status LastModified by Organization Details LastModified Time None Recorded Payers Encounter Date Sequence Insurance Name Policy Number Policy Cosme Covered Member ID Cosme Member ID Guarantor Name 07/11/2024 1 [facility]: MEDICARE HMO BLUE (MEDICARE REPLACEMENT HMO) [id number] Sandra Herrera [id number] Sandra Herrera Notes Date Note Type Note Provider Name and Address Organization Details Recorded Time 07/11/2024 text/html 84 y/o female here with cough, congestion and fevers for the past week, not improving. Has CHF, but symptoms are not similar to her usual flares ROSALIE Rivas [address] [place], [address], PA - [facility] 07/11/2024 15:26:55 OBGyn Episode No OBEpisode recorded.
--- OUTSIDE RECORDS SUMMARY | 2024-08-12 10:48 | XMS_ITS ---
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, with unspecified presence of clinical manifestation I70.203 ; Tinea unguium B35.1 ; Pain in right toe(s) M79.674 and Pain in left toe(s) M79.675 Assessments Encounter Date Diagnosis (ICD Code) Assessment Notes Treatment Notes Treatment Clinical Notes Section Notes 05/16/2024 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 Patient chooses, no pharmaceutical tx (38726) Nail Reduction Nail Reduction Trimming of dyst rophic nails performed to reduce/remove overall nail length and girth, by manual and electrical means with use of a nail nipper and/or dremel, to more viable healthy nail plate or bed tissue 6-10 (O9180-S6) Progress Notes * Sandra HERRERA ADOB: [birth year] (84 yo F)Acc No.[id number]:05/16/2024 Progress Note Patient:?Sandra Herrera Provider:?Patti Andrade DPM :1940???Age:84 Y???Sex:Female D ate:05/16/2024 Address:[address], [place] Pcp:Darrian Proctor MD Subjective: * Chief Complaints: [...] History:?tubal liga tion 1970mastectomy 1999torn knee ligament 10829 micro clips attached to mitral valve 06/16/2020 * Hospitalization/Major Diagno stic Procedure:?[facility] [place] [facility]- Right hand infection 05/01-05/04/24 * Family History:?Mother: dece ased.?Father: .? * Social History:?Tobacco Use:?Tobacco Use/Smoking?Are you a:?nonsmoker ?Additional Findings: Tobacco Non-User?Current non-smoker ?Tobacco use other than smoking?Are you an other tobacco user??No ???Miscellaneous:?no Caffeine. ?Children: yes, 8. ?Exercise: yes, walking, housework, gardening/yard work,glider. ?Marital status: single. ?Occupation: Retired- [employer] the [employer]. * Medications:?TakingEliquis 2 .5 MG Tablet as [...] Assessment: 1.?Tinea unguium - B35.1?2.? 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 Patient chooses, no pharmaceutical tx (90710).?Nail Reduction:?Nail Reduction?Trimming of dystrophic nails performed to reduce/remove overall nail length and girth, by manual and electrical means with use of a nail nipper and/or dremel, to more viable healthy nail plate or bed tissue 6-10 (G0127- Q8).? * Procedure Codes:?G0127 RENETTA ING DYSTROPHIC NAILS ANY #, Modifiers: XS , [id number] DEBRIDE NAIL, 1-5, Modifiers: XS * Follow Up:?2 Months * Images: * Sign off status: Completed true * Provider:Denisa Andrade, DPM Date:? Generated for Mariani laisha/Svetlana/eTransmitting on:?08/12/2024 10:47 AM EST History and Physical Notes * HPI [...]
--- OUTSIDE RECORDS SUMMARY | 2024-08-12 10:48 | XMS_ITS ---
Author Organization [facility] Address [address] [place] [address] Care Team Providers Care Student Truck Driver Name Role Phone Hitesh CRENSHAW [place] Primary Care Provider Patti Arellano Unavailable [phone] Allergies Allergen (clinical drug ingredient) Drug/Non Drug [...] 08/01/2024 Encounters Encounter Location Date Provider Diagnosis [facility] [address] [place] [address] 08/01/2024 Patti Andrade Atherosclerosis of kas[place] artery of both lower extremities, with unspecified presence of clinical manifestation I70.203 ; Tinea unguium B35.1 ; Pain in right toe(s) M79.674 and Pain in left toe(s) M79.675 Assessments Encounter Date Diagnosis (ICD Code) Assessment Notes Treatment Notes Treatment Clinical Notes Section Notes 08/01/2024 Atherosclerosis of kas[place] artery of both lower extremities, with unspecified presence of clinical manifestation (ICD-10 - I70.203) 08/01/2024 Tinea unguium (ICD-10 - B35.1) 08/01/2024 Pain in right toe(s) (ICD-10 - M79.674) 08/01/2024 Pain in left toe(s) (ICD-10 - M79.675) Plan Of Treatment Next Appt Details Follow Up: 2 Months, Reason: Provider Name:Patti ponce, 10/17/2024 02:00:00 PM, [address] [place] [address], [address], Procedure Notes * Category Sub-Category Detail Notes [...] sterile 15 blade, tissue nippers, and/or power [employer] instrumentation - 78152 Debride Nails 1-5 Procedure: Due to the [...] necessary to maintain effective symptomatic relief - 95435 Nail Reduction Nail Reduction Trimming of dyst rophic nails performed to reduce/remove overall nail length and girth, by manual and electrical means with use of a nail nipper and/or dremel, to more viable healthy nail plate or bed tissue 6-10 (C9494-I7) Progress Notes * Sandra HERRERA ADOB: [birth year] (84 yo F)Acc No.[id number]:08/01/2024 Progress Note Patient:?Sandra HERRERA Provider:?Patti Andrade DPM :1940???Age:84 Y???Sex:Female D ate:08/01/2024 Address:[address] [place] [address] Pcp:Darrian Proctor MD Subjective: * Chief Complaints: [...] mitral valve 06/16/2020 * Hospitalization/Major Diagno stic Procedure:[place] [place] [place] 05[place]01-05[place]04/24 * Family [...] gardening/yard work,glider. ?Marital status: single. ?Occupation: Retired- [employer] * Medications:?TakingEliquis 2 .5 MG Tablet as [...] Assessment: 1.?Tinea unguium - B35.1???2 .?Atherosclerosis of kasaan artery of both lower extremities, with unspecified [...] necessary to maintain effective symptomatic relief - 49041.?Keratoma Treatment:?Parring or Cutting of Benign Hyperkeratotic Lesion(s)?(-56) [...] tissue nippers, and/or power dremel instrumentation - 32009.?Nail Reduction:?Nail Reduction?Trimming of dystrophic nails performed to reduce/remove overall nail length and girth, by manual and electrical means with use of a nail nipper and/or dremel, to more viable healthy nail plate or bed tissue 6-10 (G0127- Q8).? * Procedure Codes:?G0127 RENETTA ING DYSTROPHIC NAILS ANY #, Modifiers: XS , [id number] DEBRIDE NAIL, 1-5, Modifiers: XS 32990 TRIM SKIN LESIONS, 2 TO 4, Modifiers: XS , Q8 * Follow Up:?2 Months * Images: * Sign off status: Completed true * Provider:?Patti Andrade DPM Date:?01/2024 Generated for Bella interiano/Svetlana/Valerie on:?08/12/2024 10:47 AM EST History and Physical [...]
--- OUTSIDE RECORDS SUMMARY | 2024-08-12 10:48 | XMS_ITS | Patient Health Record ---
Author Organization [facility] [place] Address [address] [place] [address] Care Team Providers Care Buttonhole Maker Name Role Phone Darrian Proctor MD Primary Care Provider Patti Arellano Unavailable [phone] Allergies Allergen (clinical drug ingredient) Drug/Non Drug Allergy documented on EMR Reaction Allergy Type Onset Date Status sulfamethoxazole / trimethoprim Bactrim Unknown Drug Allergy Active ciprofloxacin Cipro Unknown Drug Allergy Act fortino Shrimp Flavor Unknown Drug Allergy Act fortino Reason For Referral Diagnosis 1 Pain in unspecified foot (M79.673) Referring Provider First Name Darrian Referring Provider Last Name Hitesh Referred Organization [facility] Referred Provider Patti Andrade Referred Address [address] [facility],[place],[address], Referred Provider Specialty Podiatry Referral Priority Routine [...] Problem Acquired hammer toe of right foot (37052583744 80996) Other hammer toe(s) (acquired), right foot (M20.41) Active confirmed Problem Acquired hammer toe of left foot ([id number] 07149) Other hammer toe(s) (acquired), left foot (M20.42) Active confirmed Problem Atherosclerosis of cloverdale artery of both lower extremities, with unspecified presence of clinical manifestation (I70.203) Active confirmed Vital Signs Blood pressure diastolic 72 mm Hg 05/16/2024 Height 5 ft 2 in in 08/01/2024 Blood pressure systolic 122 mm Hg 05/16/2024 Weight 83 lbs 08/01/2024 BMI 15.18 kg/m2 08/01/2024 Encounters Encounter Location Date Provider Diagnosis [address] [address] 12/18/2023 Patti Perica Atherosclerosis of cloverdale artery of both lower extremities, with unspecified presence of clinical manifestation I70.203 ; Other hammer toe(s) (acquired), right foot M20.41 ; Tinea unguium B35.1 ; Pain in right toe(s) M79.674 ; Pain in left toe(s) M79.675 and Other hammer toe(s) (acquired), left foot M20.[address] [address] 03/04/2024 Patti Perica Atherosclerosis of cloverdale artery of both lower extremities, with unspecified presence of clinical manifestation I70.203 ; Tinea unguium B35.1 ; Pain in right toe(s) M79.674 and Pain in left toe(s) M79.[address] [address] 05/16/2024 Patti Perica Atherosclerosis of cloverdale artery of both lower extremities, with unspecified presence of clinical manifestation I70.203 ; Tinea unguium B35.1 ; Pain in right toe(s) M79.674 and Pain in left toe(s) M79.[address] [facility] [address] [address] 08/01/2024 Patti Andrade Atherosclerosis of cloverdale artery of both lower extremities, with unspecified presence of clinical manifestation I70.203 ; Tinea unguium B35.1 ; Pain in right toe(s) M79.674 and Pain in left toe(s) M79.[address] [facility] [address] 12/12/2023 Patti Perica [facility] [address] 01/03/2024 [facility] [address] 03/04/2024 Patti Andrade Assessments Encounter Date Diagnosis (ICD Code) Assessment Notes Treatment Notes Treatment Clinical Notes Section Notes 12/18/2023 Other hammer toe(s) (acquired), right foot (ICD-10 - M20.41) 12/18/2023 Atherosclerosis of cloverdale artery of both lower extremities, with unspecified presence of clinical manifestation (ICD-10 - I70.203) 03/04/2024 Tinea unguium (ICD-10 - B35.1) 03/04/2024 Atherosclerosis of cloverdale artery of both lower extremities, with unspecified presence of clinical manifestation (ICD-10 - I70.203) 05/16/2024 Tinea unguium (ICD-10 - B35.1) 05/16/2024 Atherosclerosis of cloverdale artery of both lower extremities, with unspecified presence of clinical manifestation (ICD-10 - I70.203) 08/01/2024 Tinea unguium (ICD-10 - B35.1) 08/01/2024 Atherosclerosis of cloverdale artery of both lower extremities, with unspecified [...] Details Provider Name:Patti ponce, 10/17/2024 02:00:00 PM, [address] [place] [address], [address], Insurance Providers Payer Name Payer Address Payer Phone Subscriber Number Group Number Insured Name Patient Relationship to Insured Coverage Start Date Coverage End Date [facility] 65 Medicare Preferred [address] [place] [address] [id number] Sandra Herrera Self - patient is the insured Medical (General) History Medical History History ICD Code Cancer covid-19 Dementia Chicken pox thyroid congestive heart failure Surgical History Surgery Date(Month/Year) tubal ligation 1970 mastectomy 1998 torn knee ligament 1994 3 micro clips attached to mitral valve 1 Hospitalization History Reason Date(Month/Year) [facility] [place] 05/01-05/04
--- OUTSIDE RECORDS SUMMARY | 2024-08-12 10:48 | XMS_ITS ---
Author Organization [facility] Address [address] [place] [address] Care Team Providers Care Account Executive Agribusiness Name Role Phone Darrian Proctor MD Primary Care Provider Unava ilPatti Donald [phone] Encounters Encounter Location Date Provider Diagnosis [facility] [address] [place] [address] 03/11/2024 Patti Andrade Plan Of Treatment Next Appt Details Provider Name:Patti ponce, 10/17/2024 02:00:00 PM, [address] [place], [address], Progress Notes * Sandra HERRERA ADOB: (84 yo F)Acc No.[id number]:03/11/2024 Progress Note Patient:?Sandra HERRERA Provider:?Patti Andrade DPM :1940???Age:83 Y???Sex:Female D ate:03/11/2024 Address:[address] [place] [address] Pcp:Darrian Proctor MD Subjective: * Chief Complaints: [...] Andrade DPM Date:? Generated for Bella interiano/Svetlana/Valerie on:?08/12/2024 10:47 AM EST
== END 2024-08-12 11:16 | disposition home or self-care (01) ==
PROVIDERS: PCP Internal Medicine; Visit Provider Internal Medicine
DX: I48.20 Chronic atrial fibrillation, unspecified (principal); I50.9 Heart failure, unspecified; N18.31 Chronic kidney disease, stage 3a; G30.9 Alzheimer's disease, unspecified; F02.80 Dementia in other diseases classified elsewhere, unspecified severity, without behavioral disturbance, psychotic disturbance, mood disturbance, and anxiety; I38 Endocarditis, valve unspecified; I34.0 Nonrheumatic mitral (valve) insufficiency; E03.9 Hypothyroidism, unspecified; E78.00 Pure hypercholesterolemia, unspecified; M81.0 Age-related osteoporosis without current pathological fracture; K58.9 Irritable bowel syndrome, unspecified

== ENCOUNTER → 2024-08-12 10:40 | Outpatient (BNVA) | payer MEDICARE, SELFPAY | PROVIDERS: PCP Internal Medicine; Visit Provider Internal Medicine | DX: I48.20 Chronic atrial fibrillation, unspecified (principal); I50.9 Heart failure, unspecified; I38 Endocarditis, valve unspecified; I34.0 Nonrheumatic mitral (valve) insufficiency; N18.31 Chronic kidney disease, stage 3a; E03.9 Hypothyroidism, unspecified; E78.00 Pure hypercholesterolemia, unspecified; M81.0 Age-related osteoporosis without current pathological fracture; K58.9 Irritable bowel syndrome, unspecified; G30.9 Alzheimer's disease, unspecified; F02.80 Dementia in other diseases classified elsewhere, unspecified severity, without behavioral disturbance, psychotic disturbance, mood disturbance, and anxiety; R79.89 Other specified abnormal findings of blood chemistry; D64.9 Anemia, unspecified; R30.0 Dysuria; Z79.01 Long term (current) use of anticoagulants | CPT/HCPCS: 96127; 99212 ==

== ENCOUNTER → 2024-11-05 08:33 | Outpatient (REF) | payer MEDICARE, SELFPAY ==
--- OUTSIDE RECORDS SUMMARY | 2024-11-05 09:05 | XMS_ITS ---
[facility] Organization [facility] Address [address] [facility] [place] [address] Care Team Providers Care Machine Silk Screen Printer Name Role Phone Hitesh CRENSHAW Merna Primary Care Provider UnaPatti Knapp Unavailable [phone] Allergies Allergen (clinical drug ingredient) Drug/Non Drug Allergy documented on EMR Reaction Allergy Type Onset Date Status Bactrim Unknown Drug Allergy Active ciprofloxacin Cipro [...] 08/01/2024 Encounters Encounter Location Date Provider Diagnosis [facility] [place] [address] [place] [address] 08/01/2024 Patti Andrade Atherosclerosis of twenty-nine palms artery of both lower extremities, with unspecified presence of clinical manifestation I70.203 ; Tinea unguium B35.1 ; Pain in right toe(s) M79.674 and Pain in left toe(s) M79.675 Assessments Encounter Date Diagnosis (ICD Code) Assessment Notes Treatment Notes Treatment Clinical Notes Section Notes 08/01/2024 Atherosclerosis of twenty-nine palms artery of both lower extremities, with unspecified presence of clinical manifestation (ICD-10 - I70.203) 08/01/2024 Tinea unguium (ICD-10 - B35.1) 08/01/2024 Pain in right toe(s) (ICD-10 - M79.674) 08/01/2024 Pain in left toe(s) (ICD-10 - M79.675) Plan Of Treatment Next Appt Details Follow Up: 2 Months, Reason: Provider Name:Patti ponce, 12/31/2024 02:00:00 PM, [address] [place] [address], [phone], Procedure Notes * Category Sub-Category Detail Notes [...] sterile 15 blade, tissue nippers, and/or power Pipelinefxmel instrumentation - 29528 Debride Nails 1-5 Procedure: Due to the [...] necessary to maintain effective symptomatic relief - 09212 Nail Reduction Nail Reduction Trimming of dyst rophic nails performed to reduce/remove overall nail length and girth, by manual and electrical means with use of a nail nipper and/or dremel, to more viable healthy nail plate or bed tissue 6-10 (X4514-G8) Progress Notes * Sandra HERRERA ADOB: [birth year] (84 yo F)Acc No.[id number]:08/01/2024 Progress Note Patient:?Sandra HERRERA Provider:?Patti Andrade DPM :1940???Age:84 Y???Sex:Female D ate:08/01/2024 Address:[address] [place] [address] [place] Pcp:Darrian Proctor MD Subjective: * Chief Complaints: [...] mitral valve 06/16/2020 * Hospitalization/Major Diagno stic Procedure:?[facility] [place]- Right hand infection 05/01-05/04/24 * [...] gardening/yard work,glider. ?Marital status: single. ?Occupation: Retired- [employer] at the [employer]. * Medications:?TakingEliquis 2 .5 MG Tablet [...] reviewed and reconciled with the patient * Allergies:?TheoroBactriRadames Rand[Allergies Verified] Objective: * Vitals:?Ht: 5 ft [...] Assessment: 1.?Tinea unguium - B35.1???2 .?Atherosclerosis of twenty-nine palms artery of both lower extremities, with unspecified [...] necessary to maintain effective symptomatic relief - 28656.?Keratoma Treatment:?Parring or Cutting of Benign Hyperkeratotic Lesion(s)?(-56) [...] tissue nippers, and/or power dremel instrumentation - 24597.?Nail Reduction:?Nail Reduction?Trimming of dystrophic nails performed to reduce/remove overall nail length and girth, by manual and electrical means with use of a nail nipper and/or dremel, to more viable healthy nail plate or bed tissue 6-10 (G0127- Q8).? * Procedure Codes:?G0127 RENETTA ING DYSTROPHIC NAILS ANY #, Modifiers: XS , [id number] DEBRIDE NAIL, 1-5, Modifiers: XS 21814 TRIM SKIN LESIONS, 2 TO 4, Modifiers: XS , Q8 * Follow Up:?2 Months * Images: * Sign off status: Completed true * Provider:?Patti Andrade DPM Date:?01/2024 Generated for Bella interiano/Svetlana/Maryamsmitting on:?11/05/2024 09:05 AM EDT History and Physical Notes * HPI (History of Present Illness) Category Sub-Category Detail Notes Category Not es At Risk footcare Pt States Last PCP Visit: Date: Examination Category Sub-Category Detail Notes Category Not es Dermatologic SKIN FINDINGS: Skin exam reveal s Keratotic lesion(s) located at, SUB MTH (s), 5, B/L Vascular DP PULSES (B): 0/4, B/L PT PULSES (B): 0/4, B/L CAPILLARY FILL TIME: delayed, all digits , B/L TEMPERTURE GRADIENT (C): decreased, cool to cool, proximal to distal, B/L TROPHIC CONDITION-TEXTURE/ELASTICITY/TURGOR/HAIR GROWTH (B): decreased, B/L CLAUDICATION (C): denies, B/L REST PAIN: denies, B/L Nails NAILS are: Elongated, overg rown, dystrophic, lytic, greater than 3mm thick, discolored and friable with crumbly malodorous subungual debris, with pain on palpation TA T5 remaining nails are elongated, overgrown, dystrophic
--- OUTSIDE RECORDS SUMMARY | 2024-11-05 09:05 | XMS_ITS ---
Author Organization [facility] Address [address] [place] [address] Care Team Providers Care Diet Consultant Name Role Phone Hitesh CRENSHAW [place] Primary Care Provider UnaPatti Knapp Unavailable [phone] Allergies Allergen (clinical drug ingredient) Drug/Non Drug Allergy documented on EMR Reaction Allergy Type Onset Date Status Bactrim Unknown Drug Allergy Active ciprofloxacin Cipro Unknown Drug Allergy Act fortino Shrimp Flavor Unknown Drug Allergy Act fortino Medications Medication SIG (Take, Route, Frequency, Duration) Notes Start Date End Date Status Metoprolol Succinate ER 100 MG Oral for 90 Days Active Levothyroxine Sodium 75 MCG Oral for 90 Days Active Furosemide 20 MG Oral for 90 Days Active Warfarin Sodium 10 MG 1 tablet Orally On ce a day for 48 days Not-Taking Donepezil HCl 10 MG Oral for 90 Active Vitamin D Active B-Complex Active Eliquis 2.5 MG as directed Orally Active Encounters Encounter Location Date Provider Diagnosis [facility] [address] [place] [address] 10/17/2024 Patti Andrade Plan Of Treatment Next Appt Details Provider Name:Patti ponce, 12/31/2024 02:00:00 PM, [address] [place] [address], [phone], Progress Notes * Sandra HERRERA ADOB: [birth year] (84 yo F)Acc No.[id number]:10/17/2024 Progress Note Patient:?Sandra HERRERA Provider:?Patti Andrade DPM :1940???Age:84 Y???Sex:Female D ate:10/17/2024 Address:[address] [place] [address] [place] [facility] Pcp:Darrian Proctor MD Subjective: * Chief Complaints: * ??? * Medical History:?Cancer, Cov id-19, Dementia, Chicken pox, Thyroid, Congestive heart failure. * Medications:?Taking Eliquis 2.5 MG Tablet as directed Orally [...] 1 tablet Orally Once a day * Allergies:?Cipro, Bactrim, S hrimp Flavor. Objective: * Vitals:? Assessment: Plan: * Treatment: * Images: * The named appointment provid er may or may not be the originator of this progress note, and it is not deemed complete until electronically signed by the appointment provider. Sign off status: Pending * Provider:?Patti Andrade DPM Date:? Generated for Bella interiano/Svetlana/Ozitting on:?11/05/2024 09:05 AM EDT
--- OUTSIDE RECORDS SUMMARY | 2024-11-05 09:06 | XMS_ITS | Patient Health Record ---
Author Organization [facility] [place] Address [address] [place] [address] Care Team Providers Care City Marshal Name Role Phone Darrian Proctor MD Primary Care Provider Patti Arellano Unavailable [phone] Allergies Allergen (clinical drug ingredient) Drug/Non Drug Allergy documented on EMR Reaction Allergy Type Onset Date Status Bactrim Unknown Drug Allergy Active ciprofloxacin Cipro Unknown Drug Allergy Act fortino Shrimp Flavor Unknown Drug Allergy Act fortino Reason For Referral Diagnosis 1 Pain in unspecified foot (M79.673) Referring Provider First Name Darrian Referring Provider Last Name Hitesh Referred Organization [facility] Referred Provider Patti Andrade Referred Address [address] [facility],[address],[place] Referred Provider Specialty Podiatry Referral Priority Routine Medications Medication SIG (Take, Route, Frequency, Duration) Notes Start Date End Date Status Metoprolol Succinate ER 100 MG Oral for 90 Days Active Levothyroxine Sodium 75 MCG Oral for 90 Days Active Furosemide 20 MG Oral for 90 Days Active Vitamin D Active B-Complex Active Eliquis [...] Problem Acquired hammer toe of right foot (30121850760 28049) Other hammer toe(s) (acquired), right foot (M20.41) Active confirmed Problem Acquired hammer toe of left foot ([id number] 47365) Other hammer toe(s) (acquired), left foot (M20.42) Active confirmed Problem Atherosclerosis of anvik artery of both lower extremities, with unspecified presence of clinical manifestation (I70.203) Active confirmed Vital Signs Blood pressure diastolic 72 mm Hg 05/16/2024 Height 5 ft 2 in in 08/01/2024 Blood pressure systolic 122 mm Hg 05/16/2024 Weight 83 lbs 08/01/2024 BMI 15.18 kg/m2 08/01/2024 Encounters Encounter Location Date Provider Diagnosis [address] [address] 12/18/2023 Patti Perica Atherosclerosis of anvik artery of both lower extremities, with unspecified presence of clinical manifestation I70.203 ; Other hammer toe(s) (acquired), right foot M20.41 ; Tinea unguium B35.1 ; Pain in right toe(s) M79.674 ; Pain in left toe(s) M79.675 and Other hammer toe(s) (acquired), left foot M20.[address] [address] 03/04/2024 Patti Perica Atherosclerosis of anvik artery of both lower extremities, with unspecified presence of clinical manifestation I70.203 ; Tinea unguium B35.1 ; Pain in right toe(s) M79.674 and Pain in left toe(s) M79.[address] [address] 05/16/2024 Patti Perica Atherosclerosis of anvik artery of both lower extremities, with unspecified presence of clinical manifestation I70.203 ; Tinea unguium B35.1 ; Pain in right toe(s) M79.674 and Pain in left toe(s) M79.675 [facility] [address] 08/01/2024 Patti Andrade Atherosclerosis of anvik artery of both lower extremities, with unspecified presence of clinical manifestation I70.203 ; Tinea unguium B35.1 ; Pain in right toe(s) M79.674 and Pain in left toe(s) M79.[address] [address] 12/12/2023 Patti Andrade [facility] [address] 01/03/2024 Patti Andrade [address] [address] 03/04/2024 Patti Andrade Assessments Encounter Date Diagnosis (ICD Code) Assessment Notes Treatment Notes Treatment Clinical Notes Section Notes 12/18/2023 Other hammer toe(s) (acquired), right foot (ICD-10 - M20.41) 12/18/2023 Atherosclerosis of anvik artery of both lower extremities, with unspecified presence of clinical manifestation (ICD-10 - I70.203) 03/04/2024 Tinea unguium (ICD-10 - B35.1) 03/04/2024 Atherosclerosis of anvik artery of both lower extremities, with unspecified presence of clinical manifestation (ICD-10 - I70.203) 05/16/2024 Tinea unguium (ICD-10 - B35.1) 05/16/2024 Atherosclerosis of anvik artery of both lower extremities, with unspecified presence of clinical manifestation (ICD-10 - I70.203) 08/01/2024 Tinea unguium (ICD-10 - B35.1) 08/01/2024 Atherosclerosis of anvik artery of both lower extremities, with unspecified [...] Details Provider Name:Patti ponce, 12/31/2024 02:00:00 PM, [address] [place] [address], [phone], Insurance Providers Payer Name Payer Address Payer Phone Subscriber Number Group Number Insured Name Patient Relationship to Insured Coverage Start Date Coverage End Date [employer] 65 Medicare Preferred [address] [place] [address] [phone] [id number] Sandra Herrera Self - patient is the insured Medical (General) History Medical History History ICD Code Cancer covid-19 Dementia Chicken pox thyroid congestive heart failure Surgical History Surgery Date(Month/Year) tubal ligation 1970 mastectomy 1998 torn knee ligament 1994 3 micro clips attached to mitral valve 1 Hospital[place] History Reason Date(Month/[place] [facility] [place]
--- OUTSIDE RECORDS SUMMARY | 2024-11-05 09:06 | XMS_ITS ---
[facility] Address [address] [place] [address] Care Team Providers Care Air Press Operator Name Role Phone Hitesh CRENSHAW Veteran Primary Care Provider Patti Arellano Unavailable [phone] Allergies Allergen (clinical drug ingredient) Drug/Non Drug [...] 024 Encounters Encounter Location Date Provider Diagnosis [facility] [place] [address] [place] [address] 05/16/2024 Patti Andrade Atherosclerosis of hop[place] artery of both lower extremities, with unspecified presence of clinical manifestation I70.203 ; Tinea unguium B35.1 ; Pain in right toe(s) M79.674 and Pain in left toe(s) M79.675 Assessments Encounter Date Diagnosis (ICD Code) Assessment Notes Treatment Notes Treatment Clinical Notes Section Notes 05/16/2024 Atherosclerosis of hop[place] artery of both lower extremities, with unspecified presence of clinical manifestation (ICD-10 - I70.203) 05/16/2024 Tinea unguium (ICD-10 - B35.1) 05/16/2024 Pain in right toe(s) (ICD-10 - M79.674) 05/16/2024 Pain in left toe(s) (ICD-10 - M79.675) Plan Of Treatment Next Appt Details Follow Up: 2 Months, Reason: Provider Name:Patti ponce, 12/31/2024 02:00:00 PM, [address] [place] [address], [phone], Procedure Notes * Category Sub-Category Detail Notes [...] as necessary. Patient chooses, no pharmaceutical tx (49933) Nail Reduction Nail Reduction Trimming of dyst rophic nails performed to reduce/remove overall nail length and girth, by manual and electrical means with use of a nail nipper and/or dremel, to more viable healthy nail plate or bed tissue 6-10 (P0230-C3) Progress Notes * Sandra HERRERA ADOB: [birth year] (84 yo F)Acc No.[id number]:05/16/2024 Progress Note Patient:?Sandra Herrera Provider:?Patti Andrade DPM :1940???Age:84 Y???Sex:Female D ate:05/16/2024 Address:[address] , [place] Pcp:Darrian Proctor MD Subjective: * Chief Complaints: [...] History:?tubal liga tion 1970mastectomy 1999torn knee ligament 48448 micro clips attached to mitral valve 06/16/2020 * Hospitalization/Major Diagno stic Procedure[place] [place] 05[place]01[place]04[place]24 * Family History:?Mother: dece ased.?Father: .? * Social History:?Tobacco Use:?Tobacco Use/Smoking?Are you a:?nonsmoker ?Additional Findings: Tobacco Non-User?Current non-smoker ?Tobacco use other than smoking?Are you an other tobacco user??No ???Miscellaneous:?no Caffeine. ?Children: yes, 8. ?Exercise: yes, walking, housework, gardening/yard work,glider. ?Marital status: single. ?Occupation: Retired- [employer] at the [employer]. * Medications:?TakingEliquis 2 .5 MG Tablet as [...] reconciled with the patient * Allergies:?CiproBactrimShrim p Giorgi[Allergies Verified] Objective: * Vitals:?Ht: 5 ft 2 [...] Assessment: 1.?Tinea unguium - B35.1?2.? Atherosclerosis of hop[place] artery of both lower extremities, with unspecified [...] as necessary. Patient chooses, no pharmaceutical tx (13479).?Nail Reduction:?Nail Reduction?Trimming of dystrophic nails performed to reduce/remove overall nail length and girth, by manual and electrical means with use of a nail nipper and/or dremel, to more viable healthy nail plate or bed tissue 6-10 (G0127- Q8).? * Procedure Codes:?G0127 RENETTA ING DYSTROPHIC NAILS ANY #, Modifiers: XS , [id number] DEBRIDE NAIL, 1-5, Modifiers: XS * Follow Up:?2 Months * Images: * Sign off status: Completed true * Provider:?Patti Andrade, DPM Date:? Generated for Bella interiano/Svetlana/Ozitting on:?11/05/2024 09:05 AM EDT History and Physical Notes * HPI (History of Present Illness) Category Sub-Category Detail Notes Category Not es At Risk footcare Pt States Last PCP Visit: Date: 4 Examination Category Sub-Category Detail Notes Category Not es Dermatologic SKIN FINDINGS: Vascular DP PULSES (B): 0/4, B/L PT [...]
--- OUTSIDE RECORDS SUMMARY | 2024-11-05 09:06 | XMS_ITS | Data Portability ---
Author Organization ROSALIE Dickson s [address] Address [address] [place] [address] Assessment No assessment recorded. Plan of Treatment Reminders Order Date Submit Date Provider Last Modified By Organization Details Last Modified Time Details Appointments None recorded. Lab urinalysis, dipstick 2023 [facility] [address] [address] [place], [address], 4 15:12:11 rapid flu (A+B) 2023 ik6 [facility] [address] [place], [address], 4 15:21:36 SARS CoV 2 (COVID-19) Ag, QL, IA, upper respiratory specimen 2023 [facility] [address] [place], [address], 4 15:21:36 Referral None recorded. Procedures None recorded. Surgeries None recorded. Imaging None recorded. Medication Orders amoxicillin 875 mg-potassiu m clavulanate 125 mg tablet [address] [facility], [address] [place] [address], [address], 4 14:55:34 albuterol sulfate HFA 90 mcg/actuati on aerosol inhaler 2023 [facility], [address] [place] [address], [address], 15:21:39 azithromyci n 250 mg tablet 2023 024 [email or web address] [facility], [address] [place] [address], [address], 14:55:41 Patient TargetsNo targets recorded. Patient Instructions Encounter Date Encounter Id Patient Instructions Last Modified By Organization Details Last Modified Time 07/11/2024 [id number] pneumonia: care instructions [email or web address] Not available 07/11/2024 15:21:36 Reason for Referral None Reported. Results Created Date Observation Date Name Description Value Unit Range Abnormal Flag Note LastModifiedBy Organization Detail LastModifiedTime 07/11/2007/11/2024 SARS CoV 2 (COVI D-19) Ag, QL, IA, upper respi rator y speci men Unknown Analyte negati ve Not Available betsy n[place] [address] [place], [address], 07/11/2024 14:46:48 07/11/20 24 07/11/2024 SARS CoV 2 (COVI D-19) Ag, QL, IA, upper respi rator y speci men Unknown Analyte yes Not Available arely [address] [place], [address], 07/11/2024 14:46:48 07/11/2007/11/2024 rapid flu (A+B) Unknown Analyte negati ve Not Available 2099betsy ngo [address] [place], [address], 07/11/2024 14:46:41 07/11/2007/11/2024 rapid flu (A+B) Unknown Analyte negati ve Not Available betsy ngo [address] [place], [address], 07/11/2024 14:46:41 11/26/07/22/2024 urina lysis , dipst ick Unknown Analyte Yellow Not Available _ are[place] [address] [place], [address], 07/22/2024 14:55:12 07/22/2007/22/2024 urina lysis , dipst ick Unknown Analyte Clear Not Available arely [address] [place], [address], 07/22/2024 14:55:12 07/22/2007/22/2024 urina lysis , dipst ick Unknown Analyte Negati ve Not Available betsy ngo [address] [place], [address], 07/22/2024 14:55:12 07/22/2007/22/2024 urina lysis , dipst ick Unknown Analyte Negati ve Not Available betsy ngo [address], [address], 07/22/2024 14:55:12 07/22/2007/22/2024 urina lysis , dipst ick Unknown Analyte Negati ve Not Available betsy ngo [address], [address], 07/22/2024 14:55:12 07/22/2007/22/2024 urina lysis , dipst ick Unknown Analyte 1.025 Not Available arely [address], [address], 07/22/2024 14:55:12 07/22/2007/22/2024 urina lysis , dipst ick Unknown Analyte Trace- intact Not Available betsy ngo [address], [address], 07/22/2024 14:55:12 07/22/2007/22/2024 urina lysis , dipst ick Unknown Analyte 5.5 Not Available 2099Khurram_ arely [address], [address], 07/22/2024 14:55:12 07/22/2007/22/2024 urina lysis , dipst ick Unknown Analyte 30 mg/dL Not Available _betsy ngo [address], [address], 07/22/2024 14:55:12 07/22/2007/22/2024 urina lysis , dipst ick Unknown Analyte 0.2 E.U./d L Not Available _betsy ngo [address], [address], 07/22/2024 14:55:12 07/22/2007/22/2024 urina lysis , dipst ick Unknown Analyte Negati ve Not Available 2099tori ngo [address], [address], 07/22/2024 14:55:12 07/22/2007/22/2024 urina lysis , dipst ick Unknown Analyte Trace Not Available _ arely [address], [address], 07/22/2024 14:55:12 Result Notes None recorded. Problems Name Problem SNOMED Code Status Onset Date Resolution Date Notes Provider Name and Address Organization Details Recorded Time Congestive heart failure 86292563 Active 024 Sandra Dariusz null, [place] - [facility] 14:45:47 Problem Notes None recorded. Medical Equipment None Reported. Allergies Allergen ID Allergen Name Allergen Category Reaction Reaction Severity Criticality Documentation Date Start Date Code Code System Note Provider Name and Address Organization Details Recorded Time 8606370 Cipro medicatio n Not available Not available Not available 07/11/202480725 3 RxNorm Sandra Dariusz null, PA - [facility] 4 14:43:17 8404667 scallop allergeni c extract food Not available Not available Not available 07/11/2024 16962 6 RxNorm Sandra Arzola angelo BANNER [facility] 4 14:43:30 2739070 Substance with sulfonami de structure and antibacte rial mechanism of action (substanc e) medicatio n Not available Not available Not available 07/11/2024 70628 8003 SNOMED Sandra Arzola angelo BANNER [facility] 4 14:43:34 Medications Name Sig [...] height Body mass index (BMI) Body weight Pain severity - 0-10 verbal numeric rating [Score] - Reported Heart rate Respiratory rate Oxygen saturation Oxygen saturation in Arterial blood by Pulse oximetry Body temperature Systolic blood pressure Diastolic blood pressure Provider Name and Address Organization Details Last Updated DateTime 157.48 cm 15 kg/m2 15395.5 7 g 0 68 /min 18 /min 100 % 100 % 99 [degF] 134 mm[Hg] 84 mm[Hg] Sandra Arzola PA - [facility] 14:49:58 Date Recorded Body height Body mass index (BMI) Body weight Respiratory rate Body temperature Oxygen saturation Oxygen saturation in Arterial blood by Pulse oximetry Heart rate Systolic blood pressure Diastolic blood pressure Provider Name and Address Organization Details Last Updated DateTime 157.48 cm 15.2 kg/m2 30400.1 7 g 18 /min 97.5 [degF] 97 % 97 % 54 /min 139 mm[Hg] 70 mm[Hg] Melvi Cooley ID - [facility] [facility] 14:52:35 Social History Question Answer Notes LastModified by OMsignalizOzmosis ion Details LastModified Time Tobacco Smoking Status Never Smoker Sandra stephens Drizly - [facility] 07/11/2024 14:46:17 What Is Your Level Of Alcohol Consumption? None Information not available 07/11/2024 Have You Had A Flu Shot This ? Yes Information not available 07/11/2024 If No, [...] Diagnosis/Indication Diagnosis SNOMED-CT Code Diagnosis ICD10 Code Diagnosis Note [id number] [address] [address] 02/17/2020 11:10:35 02/17/2020 12:53:51 [id number] 2[address] [address] 07/07/2016 09:49:52 07/07/2016 11:21:58 [id number] ROSALIE Rivas [address] [address] [place] [address] 07/11/2024 14:37:21 07/11/2024 15:28:24 Community acquired pneumonia [id number] J18.9 Treatment is antibiotic s as prescribed , inhaler and cough medication as needed, supportive , including, rest, fluids, humidifier , and sometimes cough suppressan ts and/or nasal decongesta nts to help reduce symptoms until your body's immune system kills the virus and the both self-recov ers Breathing warm, moist air helps loosen the sticky mucus that may make you feel like you are choking. Other things that may also help include: Placing a warm, wet washcloth loosely near your nose and mouth.Fill ing a humidifier with warm water and breathing in the warm mist.Cough ing helps clear your airways. Take a couple of deep breaths, 2 to 3 times every hour. Deep breaths help open up your lungs. While lying down, tap your chest gently a few times a day. This helps bring up mucus from the lungs. If you smoke, now is the time to quit. Do not allow smoking in your home. Drink plenty of liquids, as long as your provider says it is OK. Drink water, juice, or weak tea.Drink at least 6 to 10 cups (1.5 to 2.5 liters) a day.Do not drink alcohol.Ge t plenty of rest when you go home. If you have trouble sleeping at night, take naps during the day. Go to Emergency room for new or worsening concerning symptoms.I f breathing is: Getting harderFast er than beforeShal low and you cannot get a deep breathAlso call your provider if you have any of the following: Need to lean forward when sitting to breathe more easilyHave chest pain when you take a deep breathHead aches more often than usualFeel sleepy or confusedFe lashawn returnsCou ghing up dark mucus or bloodFinge rtips or the skin around your fingernail s is blue If symptoms worsen, return to clinic.If you develop any chest pain, worsening symptoms, worsening shortness of breath, fevers unrelieved with OTC tylenol or ibuprofen go to the nearest emergency room, or call 911. Contact office for any questions. Follow-up with your PCP in 2 weeks for a recheck. If you are not seeing improvemen t within 48-72 hours I would recommend a reevaluati on with a chest xray. Recheck chest xray in 1 month with PCP is recommende d to verify pneumonia has resolved. [id number] ROSALIE Rivas [address] [place] [address] 07/22/2024 14:39:53 07/22/2024 15:18:16 Mild dehydration [id number] 108 E86.0 DEHYDRATIO N- Dehydratio n happens when your body loses too much fluid. This might happen when you do not drink enough water or you lose large amounts of fluids from your body because of diarrhea, vomiting, or sweating. Severe dehydratio n can be life-threa tening. ??? Water and minerals called electrolyt es help put your body fluids back in balance. Learn the early signs of fluid loss, and drink more fluids to prevent dehydratio n. ??? How can you care for yourself at home? Drink plenty of fluids. Choose water and other clear liquids until you feel better. If you have kidney, heart, or liver disease and have to limit fluids, talk with your doctor before you increase the amount of fluids you drink. If you do not feel like eating or drinking, try taking small sips of water, sports drinks, or other rehydratio n drinks. Get plenty of rest. To prevent dehydratio n Add more fluids to your diet and daily routine, unless your doctor has told you not to. During hot weather, drink more fluids. Drink even more fluids if you exercise a lot. Stay away from drinks with alcohol. Watch for the symptoms of dehydratio n. These include: A dry, sticky mouth. Not much urine. Dry and sunken eyes. Feeling very tired. Learn what problems can lead to dehydratio n. These include: Diarrhea, fever, and vomiting. Any illness with a fever, such as pneumonia or the flu. Activities that cause heavy sweating, such as endurance races and heavy outdoor work in hot or humid weather. Certain medicines, such as cold and allergy pills (antihista mines), pills that remove water from the body (diuretics ), and laxatives. Certain diseases, such as diabetes, cancer, and heart or kidney disease. Health Concerns Section Related Observation LastModified by Organization Detai ls LastModified Time None Recorded Concern Status LastModified by Organization Details LastModified Time None Recorded Advance Directives Directive None Recorded Payers Encounter Date Sequence Insurance Name Policy Number Policy Cosme Covered Member ID Cosme Member ID Guarantor Name 02/17/2020 1 [facility] (MEDICARE REPLACEMENT HMO) [id number] Sandra Herrera [id number] Sandra Herrera 07/11/2024 1 [facility] HMO) [id number] Sandra Herrera [id number] Sandra Herrera 07/22/2024 1 [facility]MEDICARE [place]PLACEMENT HMO) [id number] Sandra Herrera [id number] Sandra Herrera Notes Date Note Type Note Provider Name and Address Organization Details Recorded Time 07/11/2024 text/html 84 y/o female here with cough, congestion and fevers for the past week, not improving. Has CHF, but symptoms are not similar to her usual flares ROSALIE Rivas [address] [place], [address], PA - [facility] 07/11/2024 15:26:55 07/22/2024 text/html 84 y/o female here to recheck after being treated for pna 10 days ago. She is having some mid back pain. Cough has resolved completely. Daughter is concerned that her temp has been up and down, between 99-100 ROSALIE Rivas [address] [place], [address], PA - [facility] 07/22/2024 15:12:25 OBGyn Episode No OBEpisode recorded.
--- OUTSIDE RECORDS SUMMARY | 2024-11-05 09:06 | XMS_ITS ---
[facility] Organization Unknown Encounters Encounter Type Encounter Reason Primary Diagnosis Location Date Ambulatory [facility], [facility]. ([facility]) 07/22/2024
== END ==
LOC: HO.CARD 08:33
PROVIDERS: PCP Internal Medicine; Visit Provider Internal Medicine Cardiovascular Disease
DX: Z95.818 Presence of other cardiac implants and grafts (principal); Z98.890 Other specified postprocedural states
CPT/HCPCS: 93306

== ENCOUNTER → 2024-11-05 08:36 | Outpatient (BNV) | payer MEDICARE, SELFPAY | PROVIDERS: PCP Internal Medicine; Visit Provider Internal Medicine | DX: Q21.19 Other specified atrial septal defect (principal); T82.03XA Leakage of heart valve prosthesis, initial encounter; I27.20 Pulmonary hypertension, unspecified; I36.1 Nonrheumatic tricuspid (valve) insufficiency; I37.1 Nonrheumatic pulmonary valve insufficiency; I35.1 Nonrheumatic aortic (valve) insufficiency; I31.39 Other pericardial effusion (noninflammatory) | CPT/HCPCS: 93303; 93320; 93325 ==

== ENCOUNTER 2024-11-12 09:11 | Outpatient (AMB) | payer MEDICARE, SELFPAY ==
[2024-11-12 09:21] VITALS: BP 104/60; PULSE 59; BMI 15.8
--- NOTE | 2024-11-12 09:21 | A.OFFVIS_ITS ---
Vital Signs 11/12/24 09:21 Height 5 ft 1 in Weight 83 lb 12.41 oz BMI 15.8 BP 104/60 Blood Pressure Location Rt brachial Position Sitting Pulse 59 Pulse Source Monitor Intake Visit Reasons: 6mth f/up-echo Allergies Sulfa (Sulfonamide Antibiotics) [Sulfa (Sulfonamides)] Allergy (Mild, Verified 08/12/24 11:32) RASH ciprofloxacin [Cipro] Allergy (Unknown, Verified 08/12/24 11:32) rash scallops Allergy (Unknown, Verified 08/12/24 11:32) Sick to the stomach Medication List - Last Reconciled 11/12/24 by Mikey Rodriguez MD apixaban (Eliquis) 2.5 mg PO BID 90 days cholecalciferol (vitamin D3) 25 mcg PO DAILY 90 days donepezil 10 mg PO DAILY 90 days furosemide 20 mg PO DAILY levothyroxine 75 mcg PO DAILY@0600 metoprolol succinate ER 100 mg PO DAILY 90 days vitamin B complex 1 tab PO DAILY HPI Comments Details: Sandra comes for follow-up. She is accompanied by her daughter. She continues to remain active around the house. She was no new worsening symptoms. Denies any worsening shortness of breath, fatigue. Denies any lightheadedness, syncope. Denies any orthopnea, PND, worsening leg edema. Takes all her medications. No prolonged palpitation irregular heartbeat. Most recent echocardiogram shows low normal LV EF but severely dilated right ventricle with severe biatrial enlargement with MitraClip in place with yhgn-cj-lxwwyvyi mitral regurgitation with severe tricuspid regurgitation severe pulmonary hypertension. [facility] Medical History Mitral regurgitation Cataract of both eyes Anticoagulated on Coumadin Petechial rash Petechial rash Enlarged RV (right ventricle) Tricuspid regurgitation Alzheimer's disease Irritable bowel syndrome (IBS) Osteoporosis Chronic kidney disease (CKD), stage III (moderate) Pure hypercholesterolemia Hypothyroidism Chronic atrial fibrillation CHF due to valvular disease Surgical History Status post implantation of mitral valve leaflet clip (~06/16/20) Hx of tubal ligation Hx of left mastectomy Family History Father Hx of blood clots Mother Hx of blood clots Social History Household Members: Other Household Members Other:: son Housing: House Do you presently have visiting nurse or other home services: No Alcohol intake: never Patient Tobacco Use Status: Never used Tobacco e-Cigarette/Vaping Use: Never Used Second Hand Smoke Exposure: No Advance Directives Date on File: 08/11/22 service: No Current occupational status: retired Cognitive needs: No Hearing needs: No Vision needs: Yes Review of Systems Const Denies weakness ENT Denies dizziness Card Denies chest pain, Denies chest pain with activity, Denies syncope, Denies rapid heart rate, Denies pedal edema, Denies edema, Denies leg edema, Denies lightheadedness, Denies palpitations, Denies dyspnea, Denies dyspnea on exertion and Denies orthopnea Resp Denies cough, Denies dyspnea and Denies dyspnea on exertion GI Denies hematochezia and Denies change in stool character Musc Denies abnormal gait, Denies muscle cramps, Denies muscle weakness, Denies numbness, Denies radiating pain into limb and Denies tingling Neuro Denies abnormal gait, Denies dizziness, Denies syncope, Denies numbness, Denies tingling and Denies weakness Endo Denies palpitations Physical Exam Vital Signs: Last Vital Signs Pulse 59 11/12/24 09:21 BP 104/60 11/12/24 09:21 BMI result Body Mass Index 15.8 Const General: cooperative, comfortable, no acute distress, alert, awake, Physically active and well groomed Nutritional Appearance: thin, underweight and other (Frail elderly woman) Orientation/consciousness: patient oriented x3 Limitations: no limitations Neck Neck: Yes trachea midline, Yes supple and Yes no JVD (Prominent V-waves) Resp Effort & Inspection: normal respiratory effort Auscultation: clear to auscultation bilaterally Cardio Jugular venous distension: no JVD Palpation: abnormal PMI displaced PMI and heave (Right ventricular) Rhythm: abnormal rhythm irregularly irregular Heart sounds: S1 normal heart sound present, S2 normal heart sound present, no click and Murmur heart sound present systolic holo and at the right sternal border GI Auscultation: normal bowel sounds Skin General skin exam: no rashes or lesions noted Neuro General: patient oriented x3 and no focal motor deficits Extrem General: No clubbing, No cyanosis and Yes edema (Right greater than left, both lower extremity in compression stocking) Psych Appearance: grossly normal Office Procedures EKG Details: EKG shows atrial fibrillation with incomplete right bundle-branch block with septal QS pattern 44609-Sqbokhggvoualbdna, Complete Assessment & Plan Assessment & Plan (1) CHF due to valvular disease: Code(s): I50.9 - Heart failure, unspecified; I38 - Endocarditis, valve unspecified Category: Medical Plan: Patient with congestive heart failure status post MitraClip although this was quite delayed in her course with now severe pulmonary hypertension with severe tricuspid regurgitation severely enlarged RV. Overall prognosis is guarded and limited unlikely to cause progressive heart failure in the future. Clinically today looks euvolemic and well compensated. Goals of therapy were discussed. Continue current diuretic regimen. Daily weight monitoring avoidance salt loading was discussed additional diuretics as need be. She understands and agrees. Maintain activity level as tolerated. (2) Status post implantation of mitral valve leaflet clip: Onset Date: ~06/16/20 Comment: May 2020. Three Aks TR MitraClips were placed for severe mitral regurgitation with reduction mitral regurgitation to mild range. Procedure was done for primary mitral regurgitation secondary to mitral valve prolapse with congestive heart failure. Code(s): Z98.890 - Other specified postprocedural states; Z95.818 - Presence of other cardiac implants and grafts Category: Surgical Plan: Status post MitraClip with arri-pq-cyawauof mitral regurgitation. Overall good repair. Will continue monitor clinically. Continue Eliquis therapy as above. SBE prophylaxis as per ACC/aha guidelines. (3) Chronic atrial fibrillation: Code(s): I48.20 - Chronic atrial fibrillation, unspecified Category: Medical Plan: Chronic atrial fibrillation, currently rate controlled with metoprolol therapy. No symptoms related to it. Significant biatrial enlargement precludes rhythm management. Continue full oral anticoagulation, currently on Eliquis 2.5 mg b.i.d.. Quarterly renal function test should be pursued. Will follow up in the clinic in 6 months time, sooner p.r.n.. Thank you for allowing me to partake in her care Coding Level of Care Code Est Pt Level 4 (25999) Complex EM visit Add On G2211 Diagnoses CHF due to valvular disease I50.9; I38 Status post implantation of mitral valve leaflet clip Z98.890; Z95.818 Chronic atrial fibrillation I48.20 CPT Codes EKG - CPT: 42477-Wnfnpzbqhauvaeyua, Complete ([id number])
--- OUTSIDE RECORDS SUMMARY | 2024-11-12 10:01 | XMS_ITS ---
Author Organization [facility] Address [address] [place] [address] Care Team Providers Care Living Skills Advisor Name Role Phone Hitesh CRENSHAW [place] Primary Care Provider Patti Arellano Unavailable [phone] Allergies Allergen (clinical drug ingredient) Drug/Non Drug [...] 08/01/2024 Encounters Encounter Location Date Provider Diagnosis [facility] [address] [place] [address] 08/01/2024 Patti Andrade Atherosclerosis of [place] artery of both lower extremities, with unspecified presence of clinical manifestation I70.203 ; Tinea unguium B35.1 ; Pain in right toe(s) M79.674 and Pain in left toe(s) M79.675 Assessments Encounter Date Diagnosis (ICD Code) Assessment Notes Treatment Notes Treatment Clinical Notes Section Notes 08/01/2024 Atherosclerosis of [place] artery of both lower extremities, with unspecified presence of clinical manifestation (ICD-10 - I70.203) 08/01/2024 Tinea unguium (ICD-10 - B35.1) 08/01/2024 Pain in right toe(s) (ICD-10 - M79.674) 08/01/2024 Pain in left toe(s) (ICD-10 - M79.675) Plan Of Treatment Next Appt Details Follow Up: 2 Months, Reason: Provider Name:Patti ponce, 12/31/2024 02:00:00 PM, [address] [place] [address], [address], Procedure Notes * Category Sub-Category Detail Notes [...] sterile 15 blade, tissue nippers, and/or power BrightScope instrumentation - 07174 Debride Nails 1-5 Procedure: Due to the [...] necessary to maintain effective symptomatic relief - 22900 Nail Reduction Nail Reduction Trimming of dyst rophic nails performed to reduce/remove overall nail length and girth, by manual and electrical means with use of a nail nipper and/or dremel, to more viable healthy nail plate or bed tissue 6-10 (D6410-C5) Progress Notes * Sandra HERRERA ADOB: [birth year] (84 yo F)Acc No.[id number]:08/01/2024 Progress Note Patient:?Sandra HERRERA Provider:?Patti Andrade DPM :1940???Age:84 Y???Sex:Female D ate:08/01/2024 Address:[address] [place] [address] Pcp:Darrian Proctor MD Subjective: * Chief Complaints: [...] mitral valve 06/16/2020 * Hospitalization/Major Diagno stic Procedure:?[facility] ER- Right hand infection 05/01-05/04/24 * Family [...] gardening/yard work,glider. ?Marital status: single. 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 * Medications:?TakingEliquis 2 .5 MG Tablet [...] Assessment: 1.?Tinea unguium - B35.1???2 .?Atherosclerosis of [place] artery of both lower extremities, with unspecified [...] necessary to maintain effective symptomatic relief - 03371.?Keratoma Treatment:?Parring or Cutting of Benign Hyperkeratotic Lesion(s)?(-56) [...] tissue nippers, and/or power dremel instrumentation - 23889.?Nail Reduction:?Nail Reduction?Trimming of dystrophic nails performed to reduce/remove overall nail length and girth, by manual and electrical means with use of a nail nipper and/or dremel, to more viable healthy nail plate or bed tissue 6-10 (G0127- Q8).? * Procedure Codes:?G0127 RENETTA ING DYSTROPHIC NAILS ANY #, Modifiers: XS , [id number] DEBRIDE NAIL, 1-5, Modifiers: XS 32281 TRIM SKIN LESIONS, 2 TO 4, Modifiers: XS , Q8 * Follow Up:?2 Months * Images: * Sign off status: Completed true * Provider:?Patti Andrade DPM Date:?01/2024 Generated for Bella interiano/Svetlana/Valerie on:?11/12/2024 10:01 AM EDT History and Physical Notes * [...]
--- OUTSIDE RECORDS SUMMARY | 2024-11-12 10:01 | XMS_ITS ---
[facility] Address [address] [place] [address] Care Team Providers Care District Resource Officer Name Role Phone Hitesh CRENSHAW [place] Primary Care Provider Patti Arellano Unavailable [phone] Allergies Allergen (clinical drug ingredient) Drug/Non Drug [...] Active Encounters Encounter Location Date Provider Diagnosis [facility] [address] [place] [address] 10/17/2024 Patti Andrade Plan Of Treatment Next Appt Details Provider Name:Patti ponce, 12/31/2024 02:00:00 PM, [address] [place], [address], Progress Notes * Sandra HERRERA ADOB: [birth year] (84 yo F)Acc No.[id number]:10/17/2024 Progress Note Patient:?Sandra HERRERA Provider:?Patti Andrade DPM :1940???Age:84 Y???Sex:Female D ate:10/17/2024 Address:[address] [place] [address] [id number] Pcp:Darrian Proctor MD Subjective: * Chief Complaints: [...] Andrade DPM Date:? Generated for Bella interiano/Svetlana/Ozitting on:?11/12/2024 10:01 AM EDT
--- OUTSIDE RECORDS SUMMARY | 2024-11-12 10:02 | XMS_ITS | Patient Health Record ---
Author Organization [facility] Zari chanel [place] Address [address] [place] [address] Care Team Providers Care Reconciler Name Role Phone Darrian Proctor MD Primary Care Provider Patti Arellano Unavailable [phone] Allergies Allergen (clinical drug ingredient) Drug/Non Drug Allergy documented on EMR Reaction Allergy Type Onset Date Status sulfamethoxazole / trimethoprim Bactrim Unknown Drug Allergy Active ciprofloxacin Cipro Unknown Drug Allergy Act fortino Shrimp Flavor Unknown Drug Allergy Act fortino Reason For Referral Diagnosis 1 Pain in unspecified foot (M79.673) Referring Provider First Name Darrian Referring Provider Last Name Hitesh Referred Organization [facility] [place] Referred Provider Patti Andrade Referred Address [address] [facility],[place],[address], Referred Provider Specialty Podiatry Referral Priority Routine [...] Problem Acquired hammer toe of right foot (71103240350 08310) Other hammer toe(s) (acquired), right foot (M20.41) Active confirmed Problem Acquired hammer toe of left foot (33269167050 74328) Other hammer toe(s) (acquired), left foot (M20.42) Active confirmed Problem Atherosclerosis of suquamish artery of both lower extremities, with unspecified presence of clinical manifestation (I70.203) Active confirmed Vital Signs Blood pressure diastolic 72 mm Hg 05/16/2024 Height 5 ft 2 in in 08/01/2024 Blood pressure systolic 122 mm Hg 05/16/2024 Weight 83 lbs 08/01/2024 BMI 15.18 kg/m2 08/01/2024 Encounters Encounter Location Date Provider Diagnosis [address] [address] 12/18/2023 Patti Perica Atherosclerosis of suquamish artery of both lower extremities, with unspecified presence of clinical manifestation I70.203 ; Other hammer toe(s) (acquired), right foot M20.41 ; Tinea unguium B35.1 ; Pain in right toe(s) M79.674 ; Pain in left toe(s) M79.675 and Other hammer toe(s) (acquired), left foot M20.[address] [address] 03/04/2024 Patti Perica Atherosclerosis of suquam[place] artery of both lower extremities, with unspecified presence of clinical manifestation I70.203 ; Tinea unguium B35.1 ; Pain in right toe(s) M79.674 and Pain in left toe(s) M79.[address] [address] 05/16/2024 Patti Perica Atherosclerosis of suquamish artery of both lower extremities, with unspecified presence of clinical manifestation I70.203 ; Tinea unguium B35.1 ; Pain in right toe(s) M79.674 and Pain in left toe(s) M79.675 [facility] [address] [address] 08/01/2024 Patti Andrade Atherosclerosis of [place]quam[place] artery of both lower extremities, with unspecified presence of clinical manifestation I70.203 ; Tinea unguium B35.1 ; Pain in right toe(s) M79.674 and Pain in left toe(s) M79.675 [facility] [address] 12/12/2023 Patti Perica [facility] [address] 01/03/2024 [facility] [address] 03/04/2024 Patti Andrade Assessments Encounter Date Diagnosis (ICD Code) Assessment Notes Treatment Notes Treatment Clinical Notes Section Notes 12/18/2023 Other hammer toe(s) (acquired), right foot (ICD-10 - M20.41) 12/18/2023 Atherosclerosis of suquamish artery of both lower extremities, with unspecified presence of clinical manifestation (ICD-10 - I70.203) 03/04/2024 Tinea unguium (ICD-10 - B35.1) 03/04/2024 Atherosclerosis of suquamish artery of both lower extremities, with unspecified presence of clinical manifestation (ICD-10 - I70.203) 05/16/2024 Tinea unguium (ICD-10 - B35.1) 05/16/2024 Atherosclerosis of suquamish artery of both lower extremities, with unspecified presence of clinical manifestation (ICD-10 - I70.203) 08/01/2024 Tinea unguium (ICD-10 - B35.1) 08/01/2024 Atherosclerosis of suquamish artery of both lower extremities, with unspecified [...] Details Provider Name:Patti ponce, 12/31/2024 02:00:00 PM, [address] [place] [address], [address], Insurance Providers Payer Name Payer Address Payer Phone Subscriber Number Group Number Insured Name Patient Relationship to Insured Coverage Start Date Coverage End Date [facility] 65 Medicare Preferred [address] [place] [address] [id number] Sandra Herrera Self - patient is the insured Medical (General) History Medical History History ICD Code Cancer covid-19 Dementia Chicken pox thyroid congestive heart failure Surgical History Surgery Date(Month/Year) tubal ligation 1970 mastectomy 1998 torn knee ligament 1994 3 micro clips attached to mitral valve 1 Hospitalization History Reason Date(Month/Year) [facility]- Right hand infection 05/01-05/04
--- OUTSIDE RECORDS SUMMARY | 2024-11-12 10:02 | XMS_ITS | Data Portability ---
Author Organization [facility]on [facility] [address] Address [address] [place] [address] Assessment No assessment recorded. Plan of Treatment Reminders Order Date Submit Date Provider Last Modified By Organization Details Last Modified Time Details Appointments None recorded. Lab urinalysis, dipstick 2023 [email or web address] [address] [facility] [place], [address], 4 15:12:11 rapid flu (A+B) 2023 [facility] [address] [place], [address], 4 15:21:36 SARS CoV 2 (COVID-19) Ag, QL, IA, upper respiratory specimen 2023 [facility], [address] [place], [address], 4 15:21:36 Referral None recorded. Procedures None recorded. Surgeries None recorded. Imaging None recorded. Medication Orders amoxicillin 875 mg-potassiu m clavulanate 125 mg tablet [address] [facility] [address] [facility], [address] [place] [address], [address], 4 14:55:34 albuterol sulfate HFA 90 mcg/actuati on aerosol inhaler 2023 [facility], [address] [place] [address], [address], 15:21:39 azithromyci n 250 mg tablet 2023 024 [email or web address] [facility], [address] [place] [address], [address], 14:55:41 Patient TargetsNo targets recorded. Patient Instructions Encounter Date Encounter Id Patient Instructions Last Modified By Organization Details Last Modified Time 07/11/2024 [id number] pneumonia: care instructions [email or web address] Not available 07/11/2024 15:21:36 Reason for Referral None Reported. Results Created Date Observation Date Name Description Value Unit Range Abnormal Flag Note LastModifiedBy Organization Detail LastModifiedTime 07/11/2007/11/2024 SARS CoV 2 (COVI D-19) Ag, QL, IA, upper respi rator y speci men Unknown Analyte negati ve Not Available [facility] [address] [place], [address], 07/11/2024 14:46:48 07/11/20 24 07/11/2024 SARS CoV 2 (COVI D-19) Ag, QL, IA, upper respi rator y speci men Unknown Analyte yes Not Available arely [address] [place], [address], 07/11/2024 14:46:48 07/11/2007/11/2024 rapid flu (A+B) Unknown Analyte negati ve Not Available [address]y [address] [place], [address], 07/11/2024 14:46:41 07/11/2007/11/2024 rapid flu (A+B) Unknown Analyte negati ve Not Available [facility] [address] [place], [address], 07/11/2024 14:46:41 11/26/07/22/2024 urina lysis , dipst ick Unknown Analyte Yellow Not Available _ arely [address] [place], [address], 07/22/2024 14:55:12 07/22/2007/22/2024 urina lysis , dipst ick Unknown Analyte Clear Not Available arely [address] [place], [address], 07/22/2024 14:55:12 07/22/2007/22/2024 urina lysis , dipst ick Unknown Analyte Negati ve Not Available betsy n[facility] [address] [place], [address], 07/22/2024 14:55:12 07/22/2007/22/2024 urina lysis , dipst ick Unknown Analyte Negati ve Not Available betsy ngo [address], [address], 07/22/2024 14:55:12 07/22/2007/22/2024 urina lysis , dipst ick Unknown Analyte Negati ve Not Available betsy ngo [address], [address], 07/22/2024 14:55:12 07/22/2007/22/2024 urina lysis , dipst ick Unknown Analyte 1.025 Not Available arely [address], [address], 07/22/2024 14:55:12 07/22/2007/22/2024 urina lysis , dipst ick Unknown Analyte Trace- intact Not Available betsy ngo [address], [address], 07/22/2024 14:55:12 07/22/2007/22/2024 urina lysis , dipst ick Unknown Analyte 5.5 Not Available 2099Khurram_ arely [address], [address], 07/22/2024 14:55:12 07/22/2007/22/2024 urina lysis , dipst ick Unknown Analyte 30 mg/dL Not Available _betsy ngo [address], [address], 07/22/2024 14:55:12 07/22/2007/22/2024 urina lysis , dipst ick Unknown Analyte 0.2 E.U./d L Not Available _betsy ngo [address], [address], 07/22/2024 14:55:12 07/22/2007/22/2024 urina lysis , dipst ick Unknown Analyte Negati ve Not Available 2099tori ngo [address], [address], 07/22/2024 14:55:12 07/22/2007/22/2024 urina lysis , dipst ick Unknown Analyte Trace Not Available _ arely [address], [address], 07/22/2024 14:55:12 Result Notes None recorded. Problems Name Problem SNOMED Code Status Onset Date Resolution Date Notes Provider Name and Address Organization Details Recorded Time Congestive heart failure 41349052 Active 024 Sandra Dariusz null, [place] - [facility] 14:45:47 Problem Notes None recorded. Medical Equipment None Reported. Allergies Allergen ID Allergen Name Allergen Category Reaction Reaction Severity Criticality Documentation Date Start Date Code Code System Note Provider Name and Address Organization Details Recorded Time 2400780 Cipro medicatio n Not available Not available Not available 07/11/202468983 3 RxNorm Sandra Dariusz null, [place] - [facility] 4 14:43:17 4723789 scallop allergeni c extract food Not available Not available Not available 07/11/2024 19836 6 RxNorm Sandra Arzola angelo [facility] [place] 4 14:43:30 5751041 Substance with sulfonami de structure and antibacte rial mechanism of action (substanc e) medicatio n Not available Not available Not available 07/11/2024 88803 8003 SNOMED Sandra Arzola angelo [facility] [facility] 4 14:43:34 Medications Name Sig [...] Last Updated DateTime 157.48 cm 15 kg/m2 87509.5 7 g 0 68 /min 18 /min 100 % 100 % 99 [degF] 134 mm[Hg] 84 mm[Hg] Sandra Arzola [place] - [facility] 14:49:58 Date Recorded Body height Body mass index (BMI) Body weight Respiratory rate Body temperature Oxygen saturation Oxygen saturation in Arterial blood by Pulse oximetry Heart rate Systolic blood pressure Diastolic blood pressure Provider Name and Address Organization Details Last Updated DateTime 157.48 cm 15.2 kg/m2 49684.1 7 g 18 /min 97.5 [degF] 97 % 97 % 54 /min 139 mm[Hg] 70 mm[Hg] Melvi [place] [facility] 14:52:35 Social History Question Answer Notes LastModified by FlittoizWymsee ion Details LastModified Time Tobacco Smoking Status Never Smoker Sandra stephens [facility] - [facility] 07/11/2024 14:46:17 What Is [...] SNOMED-CT Code Diagnosis ICD10 Code Diagnosis Note [id number] [address] [address] 02/17/2020 11:10:35 02/17/2020 12:53:[id number] [address] 07/07/2016 09:49:52 07/07/2016 11:21:58 [id number] ROSALIE Rivas [address] [address] [place] [address] 07/11/2024 14:37:21 07/11/2024 15:28:24 Community acquired pneumonia 177837964 J18.9 Treatment is antibiotic s as prescribed [...] recommende d to verify pneumonia has resolved. [id number] ROSALIE Rivas [address] [place] [address] 07/22/2024 14:39:53 07/22/2024 15:18:16 Mild dehydration [id number] 108 E86.0 DEHYDRATIO N- Dehydratio n happens [...] Member ID Guarantor Name 02/17/2020 1 [facility] BLUE (MEDICARE REPLACEMENT HMO) [id number] Sandra Herrera [id number] Sandra Herrera 07/11/2024 1 [facility] O [place]UE (MEDICARE REPLACEMENT HMO) [id number] Sandra Herrera [id number] Sandra Herrera 07/22/2024 1 [facility] (MEDICARE REPLACEMENT HMO) [id number] Sandra Herrera [id number] Sandra Herrera Notes Date Note Type Note Provider Name and Address Organization Details Recorded Time 07/11/2024 text/html 84 y/o female here with cough, congestion and fevers for the past week, not improving. Has CHF, but symptoms are not similar to her usual flares ROSALIE Rivas [address] [place], [address], [place] - [facility] 07/11/2024 15:26:55 07/22/2024 text/html 84 y/o female here to recheck after being treated for pna 10 days ago. She is having some mid back pain. Cough has resolved completely. Daughter is concerned that her temp has been up and down, between 99-100 ROSALIE Rivas [address] [place], [address], [place] - [facility] 07/22/2024 15:12:25 OBGyn Episode No OBEpisode recorded.
--- OUTSIDE RECORDS SUMMARY | 2024-11-12 10:02 | XMS_ITS ---
Author Organization [facility] Address [address] [facility] [place] [address] Care Team Providers Care Bit Tapper Name Role Phone Hitesh CRENSHAW [place] Primary Care Provider Patti Arellano Unavailable [phone] Allergies Allergen (clinical drug ingredient) Drug/Non Drug [...] 024 Encounters Encounter Location Date Provider Diagnosis [facility] [place] [address] [place] [address] 05/16/2024 Patti Andrade Atherosclerosis of [place] artery of both lower extremities, with unspecified presence of clinical manifestation I70.203 ; Tinea unguium B35.1 ; Pain in right toe(s) M79.674 and Pain in left toe(s) M79.675 Assessments Encounter Date Diagnosis (ICD Code) Assessment Notes Treatment Notes Treatment Clinical Notes Section Notes 05/16/2024 Atherosclerosis of [place] artery of both lower extremities, with unspecified presence of clinical manifestation (ICD-10 - I70.203) 05/16/2024 Tinea unguium (ICD-10 - B35.1) 05/16/2024 Pain in right toe(s) (ICD-10 - M79.674) 05/16/2024 Pain in left toe(s) (ICD-10 - M79.675) Plan Of Treatment Next Appt Details Follow Up: 2 Months, Reason: Provider Name:Patti ponce, 12/31/2024 02:00:00 PM, [address] [place] [address], [address], Procedure Notes * Category Sub-Category Detail Notes [...] as necessary. Patient chooses, no pharmaceutical tx (19906) Nail Reduction Nail Reduction Trimming of dyst rophic nails performed to reduce/remove overall nail length and girth, by manual and electrical means with use of a nail nipper and/or dremel, to more viable healthy nail plate or bed tissue 6-10 (T2137-O9) Progress Notes * Sandra HERRERA ADOB: 9 (84 yo F)Acc No.[id number]:05/16/2024 Progress Note Patient:?Sandra Herrera Provider:?Patti Andrade DPM :1940???Age:84 Y???Sex:Female D ate:05/16/2024 Address:[address], [place] Pcp:Darrian Proctor MD Subjective: * Chief Complaints: [...] History:?tubal liga tion 1970mastectomy 1999torn knee ligament 15377 micro clips attached to mitral valve 06/16/2020 [...] gardening/yard work,glider. ?Marital status: single. ?Occupation: Retired- [employer]. * Medications:?TakingEliquis 2 .5 MG [...] Assessment: 1.?Tinea unguium - B35.1?2.? Atherosclerosis of chicken [place] artery of both lower extremities, with unspecified [...] as necessary. Patient chooses, no pharmaceutical tx (20138).?Nail Reduction:?Nail Reduction?Trimming of dystrophic nails performed to reduce/remove overall nail length and girth, by manual and electrical means with use of a nail nipper and/or dremel, to more viable healthy nail plate or bed tissue 6-10 (G0127- Q8).? * Procedure Codes:?G0127 RENETTA ING DYSTROPHIC NAILS ANY #, Modifiers: XS , [id number] DEBRIDE NAIL, 1-5, Modifiers: XS * Follow Up:?2 Months * Images: * Sign off status: Completed true * Provider:Denisa Andrade, DPM Date:? Generated for Mariani laisha/Svetlana/eTransmitting on:?11/12/2024 10:01 AM EDT History and Physical [...]
== END 2024-11-12 09:39 | disposition home or self-care (01) ==
LOC: HO.HCS 09:11
PROVIDERS: PCP Internal Medicine; Visit Provider Internal Medicine Cardiovascular Disease
DX: I50.9 Heart failure, unspecified (principal); I38 Endocarditis, valve unspecified; Z98.890 Other specified postprocedural states; Z95.818 Presence of other cardiac implants and grafts; I48.20 Chronic atrial fibrillation, unspecified
CPT/HCPCS: 93010; 99214; G2211

== ENCOUNTER → 2024-11-12 09:11 | Outpatient (BNVA) | payer MEDICARE, SELFPAY | PROVIDERS: PCP Internal Medicine; Visit Provider Internal Medicine Cardiovascular Disease | DX: I27.20 Pulmonary hypertension, unspecified (principal); I50.9 Heart failure, unspecified; I48.20 Chronic atrial fibrillation, unspecified; Z95.818 Presence of other cardiac implants and grafts; Z98.890 Other specified postprocedural states | CPT/HCPCS: 93005; 99212 ==

== ENCOUNTER 2024-11-28 17:12 | Inpatient (IN) | payer MEDICARE, SELFPAY ==
--- NOTE | ~2024-11-28 | XR_ITS ---
CLINICAL HISTORY: weakness 2 view chest x-ray Comparison: None Findings: Moderate left pleural effusion. Mild adjacent airspace opacity. Clear right lung. No significant right pleural effusion. Moderately enlarged cardiac silhouette. Postsurgical changes of the heart. No acute fracture. IMPRESSION: 1. Moderately enlarged cardiac silhouette may be secondary to moderate cardiomegaly and/or pericardial fluid. 2. Moderate left pleural effusion. Mild adjacent atelectasis and/or infiltrate. This document has been electronically signed by: Gaby Ruiz MD on 11/28/2024 17:48:18
--- NOTE | ~2024-11-28 | CT_ITS ---
CLINICAL HISTORY: vomiting, marylu, r o urinary obstruction CT abdomen and pelvis without contrast Comparison: US - US ABDOMEN LIMITED - 11/28/24 18:55 EDT Findings: Findings at the lung bases are reported separately. There is moderate hydronephrosis of the left kidney. There are multiple small nonobstructive calculi within the left kidney. Evaluation of the left ureter is mildly limited. There is no gross evidence of ureteral calculus. There is severe infiltration of left-sided perinephric fat. There is a trace amount of free fluid adjacent to the spleen. There is a small right kidney cyst. There is pancreatic volume loss. Infiltration of perinephric fat obscures the left adrenal gland. The spleen and right adrenal gland are unremarkable. There are no calcified gallstones. No bowel obstruction, pneumoperitoneum, or pneumatosis. Severe vascular calcifications within the uterus. Small to moderate pelvic free fluid. 11 mm left ovarian cyst. Unremarkable urinary bladder. Appendix not definitively seen. The bones are intact. IMPRESSION: 1. Moderate hydronephrosis of the left kidney. Severe infiltration of left-sided perinephric fat. Consider pyelonephritis. The degree of infiltration within the retroperitoneum also raises the possibility of urine extravasation or hemorrhage of uncertain source. Recommend follow-up evaluation, preferably with contrast. 2. There are multiple small nonobstructive calculi within the left kidney. No gross evidence of ureteral calculus. 3. There is a small amount of free fluid within the left upper quadrant and there is a small to moderate amount of pelvic free fluid. This document has been electronically signed by: Gaby Ruiz MD on 11/28/2024 20:51:58
--- NOTE | ~2024-11-28 | US_ITS ---
CLINICAL HISTORY: pain, N V Ultrasound gallbladder Comparison: None Findings: The gallbladder is distended. There are no gallstones. There is no gallbladder wall thickening or pericholecystic fluid. The common bile duct measures 3 mm. Impression: 1. No evidence of cholelithiasis or biliary obstruction. This document has been electronically signed by: Gaby Ruiz MD on 11/28/2024 19:25:55
--- NOTE | ~2024-11-28 | CT_ITS ---
CLINICAL HISTORY: weakness, ?pericardial effusion CT chest without contrast Comparison: None Findings: The heart is normal size. The visualized thyroid and mediastinum are unremarkable. There is moderately severe cardiomegaly. There is no pericardial effusion. There are postsurgical changes in the region of the mitral valve. There are bandlike opacities and volume loss within the left lower lobe. There are trace bilateral pleural effusions. Findings at the level of the abdomen are reported separately. The bones are intact. IMPRESSION: 1. Small left pleural effusion. Multifocal atelectasis within the left lower lobe with volume loss. 2. Moderately severe cardiomegaly. No pericardial effusion. 3. There are trace bilateral pleural effusions. This document has been electronically signed by: Gaby Ruiz MD on 11/28/2024 20:40:27
[2024-11-28 17:24] VITALS: BP 103/62; PULSE 81; RESP 18; TEMP 36.6; O2SAT 93; BMI 15.2
--- NOTE | 2024-11-28 17:26 | ED_ITS ---
HPI - General Adult General Chief complaint: Weakness Stated complaint: dehydration Time Seen by Provider: 11/28/24 18:08 Source: patient, family (daughter), RN notes reviewed and old records reviewed Mode of arrival: ambulatory Limitations: no limitations History of Present Illness ED Provider: Mari AVALOS narrative: 84-year-old female with past medical history significant for mitral regurgitation, AFib on Eliquis, atrial septal defect, congestive heart failure, hypothyroidism, chronic kidney disease, IBS, Alzheimer's disease presents for evaluation of weakness per the patient's daughter, 3 days ago on Sunday, the patient had several episodes of nonbloody diarrhea that lasted for about 3 hours. Ever since then she has had decreased appetite and has been sleeping most of the day the patient offers no complaints, she denies any pain, denies any fevers, chills, cough, shortness of breath, she denies any current nausea or vomiting. She had an echocardiogram last month with Dr. Rodriguez she does not have any leg swelling no other complaints or concerns at this time Related Data Home Medications ?Medication ?Instructions ?Recorded ?Confirmed levothyroxine 75 mcg tablet 75 mcg PO DAILY@0600 05/01/24 11/12/24 vitamin B complex 1 tab PO DAILY 05/01/24 11/12/24 furosemide 20 mg tablet 20 mg PO DAILY 05/07/24 11/12/24 Previous Rx's ?Medication ?Instructions ?Recorded cholecalciferol (vitamin D3) 25 25 mcg PO DAILY 90 days #90 caps 12/06/22 mcg (1,000 unit) capsule donepezil 10 mg tablet 10 mg PO DAILY 90 days #90 tabs 04/04/24 metoprolol succinate 100 mg 100 mg PO DAILY 90 days #90 tabs 04/04/24 tablet,extended release 24 hr apixaban 2.5 mg tablet (Eliquis) 2.5 mg PO BID 90 days #180 tabs 08/12/24 Allergies Allergy/AdvReac Type Severity Reaction Status Date / Time Sulfa (Sulfonamide Allergy Mild RASH Verified 11/28/24 17:26 Antibiotics) [Sulfa (Sulfonamides)] ciprofloxacin [Cipro] Allergy Unknown rash Verified 11/28/24 17:26 scallops Allergy Unknown Sick to Verified 11/28/24 17:26 the stomach Review of Systems 2 Constitutional: Constitutional: Denies chills, Denies fever(s), Reports malaise, Reports poor appetite and Reports weakness Eyes: Eyes: Denies blurry vision ENT: Denies vertigo and Denies dizziness Cardiovascular: Cardiovascular: Denies chest pain and Denies dyspnea Respiratory: Respiratory: Denies cough and Denies dyspnea Gastrointestinal: Gastrointestinal: Denies abdominal pain, Reports diarrhea (resolved), Denies nausea and Denies vomiting Musculoskeletal: Musculoskeletal: Denies back pain Integumentary/Breasts: Skin/Breast: Denies rash Neurologic: Denies vertigo, Denies dizziness and Reports weakness Psychiatric: Psychiatric: Denies anxiety and Denies suicidal ideation [facility] Past Medical History Medical History Mitral regurgitation Cataract of both eyes Anticoagulated on Coumadin Petechial rash Petechial rash Enlarged RV (right ventricle) Tricuspid regurgitation Alzheimer's disease Irritable bowel syndrome (IBS) Osteoporosis Chronic kidney disease (CKD), stage III (moderate) Pure hypercholesterolemia Hypothyroidism Chronic atrial fibrillation CHF due to valvular disease Surgical History Status post implantation of mitral valve leaflet clip (~06/16/20) Hx of tubal ligation Hx of left mastectomy Family History Family History Father Hx of blood clots Mother Hx of blood clots Social History Social History Household Members: Other Household Members Other:: son Housing: House Do you presently have visiting nurse or other home services: No Alcohol intake: never Patient Tobacco Use Status: Never used Tobacco Smoked in Last 30 Days: No e-Cigarette/Vaping Use: Never Used Second Hand Smoke Exposure: No Use of substances other than those prescribed or required for medical reasons: No Advance Directives: Yes Advance Directives on File: Yes Advance Directives Date on File: 08/11/22 service: No Current occupational status: retired Cognitive needs: No Hearing needs: No Vision needs: Yes Physical Exam ED Vital Signs: Vital Signs - 24 hr 11/28/24 17:24 11/28/24 18:10 11/28/24 22:23 Temperature 97.8 F 97.6 F 98.4 F Pulse Rate 81 72 80 Respiratory Rate 18 23 H 24 H Blood Pressure 103/62 126/73 116/68 Pulse Oximetry 93 93 98 Oxygen Delivery Method Room Air Room Air Room Air BMI result Body Mass Index 15.2 Const General: healthy appearing, comfortable, no acute distress, alert and awake Orientation/consciousness: patient oriented x3 HENMT Other: mucosa dry Head: Yes normocephalic and Yes atraumatic Eyes Eyelids: Yes eyelids normal Conjunctivae: conjunctivae normal Sclerae: sclerae normal Corneas: corneas normal Pupils: Equal, round and reactive pupils present EOM: EOMs intact bilaterally Neck Neck: Yes full ROM Resp Effort & Inspection: normal respiratory effort, able to speak in complete sentences, no audible wheezes and not labored Auscultation: clear to auscultation bilaterally Cardio Other: No significant lower extremity edema Rhythm: abnormal rhythm irregularly irregular GI Inspection: No distended Palpation (GI): Soft to palpation, not firm, nontender, no guarding and not rigid Skin General skin exam: elasticity normal Neuro General: patient oriented x3 Cranial nerves: Yes CN's II-XII intact bilaterally, Yes Equal, round and reactive pupils present and Yes Bilaterally intact EOM present Cognition (Neuro): normal cognition Extrem Other: Moving all extremities well without any obvious deformities Course Course Course Narrative: RME performed by Samantha Duckworth PA-C. Patient is an 84 year old assigned female at presenting to the emergency department with increased confusion and concerns for dehydration. Patient's family states that the patient has been eating and drinking less and looking overall lethargic. Detailed physical exam and review of systems are deferred to the rf test technician. EKG, labs, and swabs ordered. Patient placed back in the waiting room pending room availability and results. Reevaluation(s) Reevaluation #1: received call from we will Radiology, the patient's CT scan shows findings consistent with pyelonephritis and possible extravasation of urine into the peritoneum. I ordered ceftriaxone, we will get a straight cath of the urinalysis. I will discuss with the Urology, Dr. Paula Time: 21:03 Reevaluation #2: discussed with Dr. Paula who was comfortable admitting this patient to the medical service and he will follow up tomorrow. The patient should be NPO after midnight. she has already received ceftriaxone, blood cultures were ordered though the patient Is not septic. Time: 22:25 Medications Administered Discontinued Medications Generic Name Dose Route Start Last Admin Trade Name Freq PRN Reason Stop Dose Admin Ceftriaxone Sodium 1 gm 11/28/24 20:56 11/28/24 21:47 Ceftriaxone Sodium 1 Gm Vial IVPUSH 11/28/24 20:57 1 gm ONCE ONE Administration Sodium Chloride 1,000 mls @ 999 mls/hr 11/28/24 18:30 11/28/24 21:41 Ns IV 11/28/24 19:30 Infused .Q1H1M SHAHRIAR Infusion Medical Decision Making Medical Decision Making [facility] Narrative: 84-year-old female with past medical history as above presents for evaluation of weakness and decreased appetite. The patient offers no complaints, most of the history is provided by the daughter who is bedside. clinically, the patient appears dry, she does have a white count of 12.4 1000 with a left shift, no significant anemia. Her chemistries are significant for acute kidney injury on top of chronic kidney disease. her sodium is low at 133 which could be related to her vomiting, there is no anion gap. The BUN of 59 and creatinine of 2.48 is approximately double her baseline. Troponin was in normal limits at 14.8, the patient's BNP is chronically elevated in his currently 1781. chest x-ray shows a left-sided pleural effusion and some concern for pericardial effusion. Her last echocardiogram shows concern for a small right-sided pericardial effusion Differential Diagnosis Differential Diagnoses: The differential diagnosis associated with the presentation includes weakness JOLYNN Gastroenteritis Diverticulitis Colitis Acute appendicitis Pericardial effusion Pneumonia Failure to thrive Dehydration Orthostasis Admission/Observation Consideration of admission/observation: Escalation of care including admission/observation considered Consult Healthcare Provider Management of the patient was discussed with: Hospitalist and Mainframe Systems Administrator (Dr. Paula) he recommends admission to medicine and NPO after midnight. He feels this is just severe pyelonephritis Lab Data [facility] Lab Attestation statement: I reviewed the patient's lab results. mild leukocytosis with a left shift as above. Chemistry abnormalities as above 11/28/24 17:59 11/28/24 17:59 Labs: Lab Results 11/28/24 11/28/24 11/28/24 Range/Units 17:59 21:22 22:01 WBC 12.4 H (4.8-10.8) X10*3/uL RBC 4.64 (4.20-5.50) X10*6/uL Hgb 14.6 (12.0-16.0) g/dl Hct 43.4 (37.0-47.0) % MCV 93.5 (80.0-98.0) fL MCH 31.5 (27.0-33.0) pg MCHC 33.6 (31.0-35.0) g/dl RDW 14.2 (11.0-16.0) % Plt Count 197 (160-400) X10*3/uL MPV 8.9 L (9.4-12.3) fL Immature Gran % (Auto) 0.5 H (0.0-0.4) % Neut % (Auto) 85.3 H (45-73) % Lymph % (Auto) 4.2 L (20-40) % [place] % (Auto) 9.8 (2-11) % Eos % (Auto) 0.0 (0-4) % Baso % (Auto) 0.2 (0-2) % Lymph # (Auto) 0.5 L (1.2-4.9) X10*3/uL [place] # (Auto) 1.2 (0.1-1.2) X10*3/uL Eos # (Auto) 0.0 (0.0-0.4) X10*3/uL Baso # (Auto) 0.0 (0.0-0.2) X10*3/uL Abs Immat Gran (auto) 0.06 H (0.00-0.03) X10*3/uL Absolute Neuts (auto) 10.6 H (2.0-8.3) x10*3/uL Absolute Nucleated RBC 0.000 (0.0-0.012) X10*3/uL Nucleated RBC % (auto) 0.0 (0.0-0.2) /100WBC Sodium 133 L (135-145) mmol/L Potassium 4.4 (3.3-5.1) mmol/L Chloride 95 L (96-108) mmol/L Carbon Dioxide 28 (22-29) mmol/L Anion Gap 14 (12-20) BUN 59 H (9-16) mg/dL Creatinine 2.48 H (0.5-1.4) mg/dL Estim Creat Clear Calc 9.8 Estimated GFR 18 Random Glucose 103 (60-115) mg/dL Lactic Acid 1.5 (0.5-2.0) mmol/L Calcium 9.0 (8.4-10.2) mg/dL Magnesium 2.3 (1.6-2.6) mg/dL Total Bilirubin 2.2 H (0.0-1.0) mg/dL AST 32 H (5-31) U/L ALT 13 (0-31) U/L Alkaline Phosphatase 81 (39-117) U/L Total Creatine Kinase 52 (26-140) U/L Troponin I High Sens 14.8 (<3.5-17.0) ng/L B-Natriuretic Peptide 1781 H (<100) pg/mL Total Protein 6.7 (6.5-8.0) g/dL Albumin 3.4 L (3.5-5.0) g/dL Urine Color Dark Yellow Urine Appearance Clear Urine pH 5.0 (5.0-9.0) Ur Specific [place] 1.020 (1.005-1.025) Urine Protein 30 (1+) H (Neg-Trace) mg/dL Urine Glucose (UA) Negative (Negative) mg/dL Urine Ketones Trace (Negative) mg/dL Urine Blood Negative (Negative) Urine Nitrite Negative (Negative) Ur Leukocyte Esterase Negative (Negative) Urine RBC 0-2 (0-2) /HPF Urine WBC 0-5 (0-5) /HPF Ur Squamous Epith Cells 3-5 (0-2) /HPF Urine Bacteria None Seen (None Seen) Hyaline Casts 11-20 (0-2) /LPF Influenza Type A (PCR) NEGATIVE (Negative) Influenza Type B (PCR) NEGATIVE (Negative) RSV RNA Qual (PCR) NEGATIVE (Negative) SARS-CoV-2 RNA (RT-PCR) NEGATIVE (Negative) Discharge Plan Discharge Clinical Impression: Weakness, JOLYNN (acute kidney injury), Acute pyelonephritis Patient Disposition: Admitted As Inpatient Prescriptions: No Action levothyroxine 75 mcg tablet 75 mcg PO DAILY@0600 vitamin B complex Tablet 1 tab PO DAILY cholecalciferol (vitamin D3) 25 mcg (1,000 unit) capsule 25 mcg PO DAILY 90 Days Qty: 90 3RF donepezil 10 mg tablet 10 mg PO DAILY 90 Days Qty: 90 3RF metoprolol succinate 100 mg tablet extended release 24 hr 100 mg PO DAILY 90 Days Qty: 90 3RF furosemide 20 mg tablet 20 mg PO DAILY Eliquis 2.5 mg tablet 2.5 mg PO BID 90 Days Qty: 180 3RF Print Language: Kiswahili
--- NOTE | 2024-11-28 17:27 | ECG_ITS ---
Test Reason : WEAKNESS Blood Pressure : */* mmHG Vent. Rate : 78 BPM Atrial Rate : * BPM P-R Int : * ms QRS Dur : 92 ms QT Int : 382 ms P-R-T Axes : * 130 3 degrees QTcB Int : 435 ms Atrial fibrillation Right axis deviation Incomplete right bundle branch block Anterior infarct , age undetermined Abnormal ECG When compared with ECG of 26-Dec-2019 20:51, Incomplete right bundle branch block is now Present Referred By: Samantha Duckworth Electronically Signed By: DEBRA SIMMONS
[2024-11-28 18:07] LABS: MANUAL DIFF FLAG NO
[2024-11-28 18:08] LABS: Basophils Percent Auto 0.2 % (0-2); Hematocrit 43.4 % (37.0-47.0); Hemoglobin 14.6 g/dl (12.0-16.0); Imm Gran Abs Auto 0.06 X10*3/uL (0.00-0.03); Imm Gran Pct Auto 0.5 % (0.0-0.4); Lymphocytes Absolute Auto 0.5 X10*3/uL (1.2-4.9); Lymphocytes Percent Auto 4.2 % (20-40); Mean Corpuscular HGB Conc 33.6 g/dl (31.0-35.0); Mean Corpuscular Hemoglobin 31.5 pg (27.0-33.0); Mean Corpuscular Volume 93.5 fL (80.0-98.0); Mean Platelet Volume 8.9 fL (9.4-12.3); Monocytes Absolute Auto 1.2 X10*3/uL (0.1-1.2); Monocytes Percent Auto 9.8 % (2-11); Neutrophils Absolute Auto 10.6 x10*3/uL (2.0-8.3); Neutrophils Percent Auto 85.3 % (45-73); Platelet Count 197 X10*3/uL (160-400); Red Blood Count 4.64 X10*6/uL (4.20-5.50); Red Cell Distribution Width 14.2 % (11.0-16.0); White Blood Count 12.4 X10*3/uL (4.8-10.8)
[2024-11-28 18:10] VITALS: BP 126/73; PULSE 72; RESP 23; TEMP 36.4; O2SAT 93
--- OUTSIDE RECORDS SUMMARY | 2024-11-28 18:16 | XMS_ITS ---
Author Organization [facility] Address [address] [place] [address] Care Team Providers Care Agent Name Role Phone Hitesh CRENSHAW [place] Primary Care Provider Patti Arellano Unavailable [phone] Allergies Allergen (clinical drug ingredient) Drug/Non Drug [...] Active Encounters Encounter Location Date Provider Diagnosis [facility] [address] [place] [address] 10/17/2024 Patti Andrade Plan Of Treatment Next Appt Details Provider Name:Patti ponce, 12/31/2024 02:00:00 PM, [address] [place], [address], Progress Notes * Sandra HERRERA ADOB: [birth year] (84 yo F)Acc No.[id number]:10/17/2024 Progress Note Patient:?Sandra HERRERA Provider:?Patti Andrade DPM :1940???Age:84 Y???Sex:Female D ate:10/17/2024 Address:[address] [place] [address] [place] Pcp:Darrian Proctor MD Subjective: * Chief Complaints: [...] Andrade DPM Date:? Generated for Bella interiano/Svetlana/Ozitting on:?11/28/2024 06:15 PM EDT
--- OUTSIDE RECORDS SUMMARY | 2024-11-28 18:16 | XMS_ITS ---
Author Organization [facility] Address [address] [facility] [place] [address] Care Team Providers Care Chairman Emeritus Name Role Phone Hitesh CRENSHAW [place] Primary Care Provider Patti Arellano Unavailable [phone] Allergies Allergen (clinical drug ingredient) Drug/Non Drug [...] 024 Encounters Encounter Location Date Provider Diagnosis [facility] [place] [address] [place] [address] 05/16/2024 Patti Andrade Atherosclerosis of kashia artery of both lower extremities, with unspecified presence of clinical manifestation I70.203 ; Tinea unguium B35.1 ; Pain in right toe(s) M79.674 and Pain in left toe(s) M79.675 Assessments Encounter Date Diagnosis (ICD Code) Assessment Notes Treatment Notes Treatment Clinical Notes Section Notes 05/16/2024 Atherosclerosis of kashia artery of both lower extremities, with unspecified presence of clinical manifestation (ICD-10 - I70.203) 05/16/2024 Tinea unguium (ICD-10 - B35.1) 05/16/2024 Pain in right toe(s) (ICD-10 - M79.674) 05/16/2024 Pain in left toe(s) (ICD-10 - M79.675) Plan Of Treatment Next Appt Details Follow Up: 2 Months, Reason: Provider Name:Patti ponce, 12/31/2024 02:00:00 PM, [address] [place] [address], [address], Procedure Notes * Category Sub-Category Detail Notes [...] as necessary. Patient chooses, no pharmaceutical tx (79635) Nail Reduction Nail Reduction Trimming of dyst rophic nails performed to reduce/remove overall nail length and girth, by manual and electrical means with use of a nail nipper and/or dremel, to more viable healthy nail plate or bed tissue 6-10 (Q1587-D3) Progress Notes * Sandra HERRERA ADOB: [birth year] (84 yo F)Acc No.[id number]:05/16/2024 Progress Note Patient:?Sandra Herrera Provider:?Patti Andrade DPM :1940???Age:84 Y???Sex:Female D ate:05/16/2024 Address:[address], [place] Pcp:Darrian Proctor MD Subjective: * Chief Complaints: [...] History:?tubal liga tion 1970mastectomy 1999torn knee ligament 06143 micro clips attached to mitral valve 06/16/2020 * Hospitalization/Major Diagno stic Procedure:?[facility] ER- Right hand infection 05/01-05/04/24 * Family History:?Mother: dece ased.?Father: .? * Social History:?Tobacco Use:?Tobacco Use/Smoking?Are you a:?nonsmoker ?Additional Findings: Tobacco Non-User?Current non-smoker ?Tobacco use other than smoking?Are you an other tobacco user??No ???Miscellaneous:?no Caffeine. ?Children: yes, 8. ?Exercise: yes, walking, housework, gardening/yard work,glider. ?Marital status: single. ?Occupation: Retired- [employer] at the [employer]. * Medications:?TakingEliquis 2 .5 MG [...] Assessment: 1.?Tinea unguium - B35.1?2.? Atherosclerosis of kashia artery of both lower extremities, with unspecified [...] as necessary. Patient chooses, no pharmaceutical tx (43595).?Nail Reduction:?Nail Reduction?Trimming of dystrophic nails performed to reduce/remove overall nail length and girth, by manual and electrical means with use of a nail nipper and/or dremel, to more viable healthy nail plate or bed tissue 6-10 (G0127- Q8).? * Procedure Codes:?G0127 RENETTA ING DYSTROPHIC NAILS ANY #, Modifiers: XS , [id number] DEBRIDE NAIL, 1-5, Modifiers: XS * Follow Up:?2 Months * Images: * Sign off status: Completed true * Provider:Denisa Andrade, DPM Date:? Generated for Mariani laisha/Svetlana/eTransmitting on:?11/28/2024 06:16 PM EDT History and Physical Notes * HPI [...]
--- OUTSIDE RECORDS SUMMARY | 2024-11-28 18:16 | XMS_ITS | Patient Health Record ---
Author Organization [facility] [place] Address [address] [place] [address] Care Team Providers Care Assistant Football Coach Name Role Phone Hitesh CRENSHAW [place] Primary Care Provider Unava ilable Patti Andrade Unavailable [phone] Allergies Allergen (clinical drug ingredient) Drug/Non Drug Allergy documented on EMR Reaction Allergy Type Onset Date Status sulfamethoxazole / trimethoprim Bactrim Unknown Drug Allergy Active ciprofloxacin Cipro Unknown Drug Allergy Act fortino Shrimp Flavor Unknown Drug Allergy Act fortino Reason For Referral Diagnosis 1 Pain in unspecified foot (M79.673) Referring Provider First Name Darrian Referring Provider Last Name [facility] Referred Provider Patti Andrade Referred Address [address] [place], [place],[address], Referred Provider Specialty Podiatry Referral Priority Routine Diagnosis 1 Atherosclerosis of n ative artery of both lower extremities, with unspecified presence of clinical manifestation (I70.203) Diagnosis 2 Other hammer toe(s) (acquired), right foot (M20.41) Diagnosis 3 Other hammer toe(s) (acquired), left foot (M20.42) Diagnosis 4 Pain in left toe(s) (M79.675) Diagnosis 5 Pain in right toe(s) (M79.674) Diagnosis 6 Tinea unguium (B35.1 ) Referring Provider First Name Darrian Referring Provider Last Name Hitesh [facility] Referred Provider Patti Andrade Referred Address [address] [place], [place],[address], Referred Provider Specialty Podiatry Referral Priority Routine [...] Problem Acquired hammer toe of right foot ([id number]) Other hammer toe(s) (acquired), right foot (M20.41) Active confirmed Problem Acquired hammer toe of left foot ([id number]) Other hammer toe(s) (acquired), left foot (M20.42) Active confirmed Problem Atherosclerosis of choctaw artery of both lower extremities, with unspecified presence of clinical manifestation (I70.203) Active confirmed Vital Signs Blood pressure diastolic 72 mm Hg 05/16/2024 Height 5 ft 2 in in 08/01/2024 Blood pressure systolic 122 mm Hg 05/16/2024 Weight 83 lbs 08/01/2024 BMI 15.18 kg/m2 08/01/2024 Encounters Encounter Location Date Provider Diagnosis [facility] [place] [address] [place] [address] 12/18/2023 aPtti Andrade Atherosclerosis of choctaw artery of both lower extremities, with unspecified presence of clinical manifestation I70.203 ; Other hammer toe(s) (acquired), right foot M20.41 ; Tinea unguium B35.1 ; Pain in right toe(s) M79.674 ; Pain in left toe(s) M79.675 and Other hammer toe(s) (acquired), left foot M20.[address] [address] 03/04/2024 Patti Perica Atherosclerosis of choctaw artery of both lower extremities, with unspecified presence of clinical manifestation I70.203 ; Tinea unguium B35.1 ; Pain in right toe(s) M79.674 and Pain in left toe(s) M79.[address] [address] 05/16/2024 Patti Perica Atherosclerosis of choctaw artery of both lower extremities, with unspecified presence of clinical manifestation I70.203 ; Tinea unguium B35.1 ; Pain in right toe(s) M79.674 and Pain in left toe(s) M79.[address] [address] 08/01/2024 Patti Perica Atherosclerosis of choctaw artery of both lower extremities, with unspecified presence of clinical manifestation I70.203 ; Tinea unguium B35.1 ; Pain in right toe(s) M79.674 and Pain in left toe(s) M79.[address] [address] 12/12/2023 Patti Perica [address] [address] 01/03/2024 Patti Perica [address] [address] 03/04/2024 Patti Andrade Assessments Encounter Date Diagnosis (ICD Code) Assessment Notes Treatment Notes Treatment Clinical Notes Section Notes 12/18/2023 Other hammer toe(s) (acquired), right foot (ICD-10 - M20.41) 12/18/2023 Atherosclerosis of choctaw artery of both lower extremities, with unspecified presence of clinical manifestation (ICD-10 - I70.203) 03/04/2024 Tinea unguium (ICD-10 - B35.1) 03/04/2024 Atherosclerosis of choctaw artery of both lower extremities, with unspecified presence of clinical manifestation (ICD-10 - I70.203) 05/16/2024 Tinea unguium (ICD-10 - B35.1) 05/16/2024 Atherosclerosis of choctaw artery of both lower extremities, with unspecified presence of clinical manifestation (ICD-10 - I70.203) 08/01/2024 Tinea unguium (ICD-10 - B35.1) 08/01/2024 Atherosclerosis of choctaw artery of both lower extremities, with unspecified [...] Provider Name:Patti ponce, 12/31/2024 02:00:00 PM, [address] [place], [address], Insurance Providers Payer Name Payer Address Payer Phone Subscriber Number Group Number Insured Name Patient Relationship to Insured Coverage Start Date Coverage End Date [facility] 65 Medicare Preferred [address] [place] [address] [id number] Sandra Herrera Self - patient is the insured Medical (General) History Medical History History ICD Code Cancer covid-19 Dementia Chicken pox thyroid congestive heart failure Surgical History Surgery Date(Month/Year) tubal ligation 1969 mastectomy 1998 torn knee ligament 1994 3 micro clips attached to mitral valve 1 Hospitalization History Reason Date(Month/Year) [facility] [place] ER- Right hand infection 05/01-05/04
--- OUTSIDE RECORDS SUMMARY | 2024-11-28 18:16 | XMS_ITS | Data Portability ---
Author Organization ROSALIE Dickson s [address] Address [address] [place] [address] Assessment No assessment recorded. Plan of Treatment Reminders Order Date Submit Date Provider Last Modified By Organization Details Last Modified Time Details Appointments None recorded. Lab urinalysis, dipstick 2023 [facility] [address] [place], [address], 4 15:12:11 rapid flu (A+B) 2023 ik6 [facility] [address] [place], [address], 4 15:21:36 SARS CoV 2 (COVID-19) Ag, QL, IA, upper respiratory specimen 2023 [facility] [address] [place], [address], 4 15:21:36 Referral None recorded. Procedures None recorded. Surgeries None recorded. Imaging None recorded. Medication Orders amoxicillin 875 mg-potassiu m clavulanate 125 mg tablet [address] [facility], [address] [place] [address], [address], 14:55:34 albuterol sulfate HFA 90 mcg/actuati on aerosol inhaler 2023 [facility], [address] [place] [address], [address], 15:21:39 azithromyci n 250 mg tablet 2023 024 [email or web address] [facility], [address] [place] [address], [id number], 14:55:41 Patient TargetsNo targets recorded. Patient Instructions Encounter Date Encounter Id Patient Instructions Last Modified By Organization Details Last Modified Time 07/11/2024 [id number] pneumonia: care instructions [email or web address] Not available 07/11/2024 15:21:36 Reason for Referral None Reported. Results Created Date Observation Date Name Description Value Unit Range Abnormal Flag Note LastModifiedBy Organization Detail LastModifiedTime 07/11/2007/11/2024 SARS CoV 2 (COVI D-19) Ag, QL, IA, upper respi rator y speci men Unknown Analyte negati ve Not Available betsy [place] [address] [place], [address], 07/11/2024 14:46:48 07/11/20 24 07/11/2024 SARS CoV 2 (COVI D-19) Ag, QL, IA, upper respi rator y speci men Unknown Analyte yes Not Available arely [address] [place], [address], 07/11/2024 14:46:48 07/11/2007/11/2024 rapid flu (A+B) Unknown Analyte negati ve Not Available 2099betsy ngo [address] [place], [address], 07/11/2024 14:46:41 07/11/2007/11/2024 rapid flu (A+B) Unknown Analyte negati ve Not Available [address]sy [address] [address] [place], [address], 07/11/2024 14:46:41 11/26/07/22/2024 urina lysis , dipst ick Unknown Analyte Yellow Not Available _ are[place] [address] [place], [address], 07/22/2024 14:55:12 07/22/2007/22/2024 urina lysis , dipst ick Unknown Analyte Clear Not Available arely [address] [place], [address], 07/22/2024 14:55:12 07/22/2007/22/2024 urina lysis , dipst ick Unknown Analyte Negati ve Not Available betsy ngo [address] [place], [address], 07/22/2024 14:55:12 07/22/2007/22/2024 urina lysis , dipst ick Unknown Analyte Negati ve Not Available betsy ngo [address], [address], 07/22/2024 14:55:12 07/22/2007/22/2024 urina lysis , dipst ick Unknown Analyte Negati ve Not Available betsy ngo [address], [address], 07/22/2024 14:55:12 07/22/2007/22/2024 urina lysis , dipst ick Unknown Analyte 1.025 Not Available arely [address], [address], 07/22/2024 14:55:12 07/22/2007/22/2024 urina lysis , dipst ick Unknown Analyte Trace- intact Not Available betsy ngo [address], [address], 07/22/2024 14:55:12 07/22/2007/22/2024 urina lysis , dipst ick Unknown Analyte 5.5 Not Available 2099Khurram_ arely [address], [address], 07/22/2024 14:55:12 07/22/2007/22/2024 urina lysis , dipst ick Unknown Analyte 30 mg/dL Not Available _betsy ngo [address], [address], 07/22/2024 14:55:12 07/22/2007/22/2024 urina lysis , dipst ick Unknown Analyte 0.2 E.U./d L Not Available _betsy ngo [address], [address], 07/22/2024 14:55:12 07/22/2007/22/2024 urina lysis , dipst ick Unknown Analyte Negati ve Not Available 2099tori ngo [address], [address], 07/22/2024 14:55:12 07/22/2007/22/2024 urina lysis , dipst ick Unknown Analyte Trace Not Available _ arely [address], [address], 07/22/2024 14:55:12 Result Notes None recorded. Problems Name Problem SNOMED Code Status Onset Date Resolution Date Notes Provider Name and Address Organization Details Recorded Time Congestive heart failure 58288841 Active 024 Sandra Dariusz null, [place] - [facility] 14:45:47 Problem Notes None recorded. Medical Equipment None Reported. Allergies Allergen ID Allergen Name Allergen Category Reaction Reaction Severity Criticality Documentation Date Start Date Code Code System Note Provider Name and Address Organization Details Recorded Time 5626478 Cipro medicatio n Not available Not available Not available 07/11/202408036 3 RxNorm Sandra Dariusz null, PA - [facility] 4 14:43:17 2114905 scallop allergeni c extract food Not available Not available Not available 07/11/2024 56161 6 RxNorm Sandra Arzola angelo [facility] 4 14:43:30 7575843 Substance with sulfonami de structure and antibacte rial mechanism of action (substanc e) medicatio n Not available Not available Not available 07/11/2024 65800 8003 SNOMED Sandra Arzola angelo [facility] 4 14:43:34 Medications [...] Last Updated DateTime 157.48 cm 15 kg/m2 27898.5 7 g 0 68 /min 18 /min 100 % 100 % 99 [degF] 134 mm[Hg] 84 mm[Hg] Sandra Arzola PA - [facility] 14:49:58 Date Recorded Body height Body mass index (BMI) Body weight Respiratory rate Body temperature Oxygen saturation Oxygen saturation in Arterial blood by Pulse oximetry Heart rate Systolic blood pressure Diastolic blood pressure Provider Name and Address Organization Details Last Updated DateTime 157.48 cm 15.2 kg/m2 65140.1 7 g 18 /min 97.5 [degF] 97 % 97 % 54 /min 139 mm[Hg] 70 mm[Hg] Melvi Cooley [place] - [facility] 14:52:35 Social History Question Answer Notes LastModified by [employer] ion Details LastModified Time Tobacco Smoking Status Never Smoker Sandra stephens Genome - [facility] 07/11/2024 14:46:17 What Is [...] SNOMED-CT Code Diagnosis ICD10 Code Diagnosis Note [id number] 21005_[address] [address] 02/17/2020 11:10:35 02/17/2020 12:53:[address] [id number] 2[address] [address] 07/07/2016 09:49:52 07/07/2016 11:21:58 [id number] [facility]ALIE Rivas [address] [address] [place] [address] 07/11/2024 14:37:21 07/11/2024 15:28:24 Community acquired pneumonia 327957197 J18.9 Treatment is antibiotic s as prescribed [...] recommende d to verify pneumonia has resolved. [id number] ROSALIE Rivas [address] [place] [address] 07/22/2024 14:39:53 07/22/2024 15:18:16 Mild dehydration 6418184797 108 E86.0 DEHYDRATIO N- Dehydratio n happens [...] Cosme Member ID Guarantor Name 02/17/2020 1 [facility]: MEDICARE HMO BLUE (MEDICARE REPLACEMENT HMO) [id number] Sandra Herrera [id number] Sandra Herrera 07/11/2024 1 [facility]: MEDICARE O BLUE (MEDICARE REPLACEMENT HMO) [id number] Sandra Herrera [id number] Sandra Herrera 07/22/2024 1 [facility]: MEDICARE HMO BLUE (MEDICARE REPLACEMENT HMO) [id number] Sandra Herrera [id number] Sandra Herrera Notes Date Note Type Note Provider Name and Address Organization Details Recorded Time 07/11/2024 text/html 84 y/o female here with cough, congestion and fevers for the past week, not improving. Has CHF, but symptoms are not similar to her usual flares ROSALIE Rivas [address] [place], [address], PA - [facility] 07/11/2024 15:26:55 07/22/2024 text/html 84 y/o female here to recheck after being treated for pna 10 days ago. She is having some mid back pain. Cough has resolved completely. Daughter is concerned that her temp has been up and down, between 99-100 ROSALIE Rivas [address] [place], [address], PA - [facility] 07/22/2024 15:12:25 OBGyn Episode No OBEpisode recorded.
--- OUTSIDE RECORDS SUMMARY | 2024-11-28 18:16 | XMS_ITS ---
Author Organization [facility] Address [address] [place] [address] Care Team Providers Care User Experience Researcher Name Role Phone Hitesh CRENSHAW [place] Primary Care Provider Patti Arellano Unavailable [phone] Allergies Allergen (clinical drug ingredient) Drug/Non Drug [...] 08/01/2024 Encounters Encounter Location Date Provider Diagnosis [facility] [place] [address] [place] [address] 08/01/2024 Patti Andrade Atherosclerosis of [place]osh[place] artery of both lower extremities, with unspecified presence of clinical manifestation I70.203 ; Tinea unguium B35.1 ; Pain in right toe(s) M79.674 and Pain in left toe(s) M79.675 Assessments Encounter Date Diagnosis (ICD Code) Assessment Notes Treatment Notes Treatment Clinical Notes Section Notes 08/01/2024 Atherosclerosis of [place]osh[place] artery of both lower extremities, with unspecified presence of clinical manifestation (ICD-10 - I70.203) 08/01/2024 Tinea unguium (ICD-10 - B35.1) 08/01/2024 Pain in right toe(s) (ICD-10 - M79.674) 08/01/2024 Pain in left toe(s) (ICD-10 - M79.675) Plan Of Treatment Next Appt Details Follow Up: 2 Months, Reason: Provider Name:Patti ponce, 12/31/2024 02:00:00 PM, [address] [place] [address], [address], Procedure Notes * Category Sub-Category Detail Notes [...] sterile 15 blade, tissue nippers, and/or power [employer] instrumentation - 98624 Debride Nails 1-5 Procedure: Due to the [...] necessary to maintain effective symptomatic relief - 63905 Nail Reduction Nail Reduction Trimming of dyst rophic nails performed to reduce/remove overall nail length and girth, by manual and electrical means with use of a nail nipper and/or dremel, to more viable healthy nail plate or bed tissue 6-10 (O3853-M4) Progress Notes * Sandra HERRERA ADOB: [birth year] (84 yo F)Acc No.[id number]:08/01/2024 Progress Note Patient:?Sandra HERRERA Provider:?Patti Andrade DPM :1940???Age:84 Y???Sex:Female D ate:08/01/2024 Address:[address] [place] [address] Pcp:Darrian Proctor MD Subjective: * Chief Complaints: [...] mitral valve 06/16/2020 * Hospitalization/Major Diagno stic Procedure:?[facility]- Right hand infection 05/01-05/04/24 * Family [...] gardening/yard work,glider. ?Marital status: single. ?Occupation: Retired- [employer] at the [employer]. * Medications:?TakingEliquis 2 .5 MG [...] Assessment: 1.?Tinea unguium - B35.1???2 .?Atherosclerosis of [place]osh[place] artery of both lower extremities, with unspecified [...] necessary to maintain effective symptomatic relief - 19466.?Keratoma Treatment:?Parring or Cutting of Benign Hyperkeratotic Lesion(s)?(-56) [...] tissue nippers, and/or power dremel instrumentation - 69457.?Nail Reduction:?Nail Reduction?Trimming of dystrophic nails performed to reduce/remove overall nail length and girth, by manual and electrical means with use of a nail nipper and/or dremel, to more viable healthy nail plate or bed tissue 6-10 (G0127- Q8).? * Procedure Codes:?G0127 RENETTA ING DYSTROPHIC NAILS ANY #, Modifiers: XS , [id number] DEBRIDE NAIL, 1-5, Modifiers: XS 16367 TRIM SKIN LESIONS, 2 TO 4, Modifiers: XS , Q8 * Follow Up:?2 Months * Images: * Sign off status: Completed true * Provider:?Patti Andrade DPM Date:?01/2024 Generated for Bella interiano/Svetlana/Valerie on:?11/28/2024 06:15 PM EDT History and Physical Notes * [...]
[2024-11-28 18:22] LABS: Alanine Aminotransferase 13 U/L (0-31); Albumin Level 3.4 g/dL (3.5-5.0); Alkaline Phosphatase 81 U/L (39-117); Anion Gap 14 (12-20); Aspartate Amino Transferase 32 U/L (5-31); Bilirubin Total 2.2 mg/dL (0.0-1.0); Blood Urea Nitrogen 59 mg/dL (9-16); Carbon Dioxide 28 mmol/L (22-29); Chloride 95 mmol/L (96-108); Creatinine Clr Calc Pharmacy 9.8; Estimated Glomerular Filt Rate 18; Glucose Random 103 mg/dL (60-115); Magnesium 2.3 mg/dL (1.6-2.6); Potassium 4.4 mmol/L (3.3-5.1); Sodium 133 mmol/L (135-145); Total Protein 6.7 g/dL (6.5-8.0)
[2024-11-28 18:28] LABS: Troponin-I High Sensitivity 14.8 ng/L (<3.5-17.0)
[2024-11-28] MEDS: 0.9 % Sodium Chloride 1,000 ML 999 ML IV (18:41)
[2024-11-28 18:43] LABS: Influenza A PCR NEGATIVE (Negative); Influenza B PCR NEGATIVE (Negative); Resp Syncy Virus RNA Qual PCR NEGATIVE (Negative); SARS COV2 PCR INHOUSE NEGATIVE (Negative)
[2024-11-28 18:56] LABS: B Type Natriuretic Peptide 1781 pg/mL (<100)
[2024-11-28 21:15] VITALS: BP 109/59; PULSE 71; RESP 16; O2SAT 94
[2024-11-28 21:29] LABS: Appearance Urine Clear; Color Urine Dark Yellow; Glucose Urine UA Negative (Negative); Leukocyte Esterase Urine Negative (Negative); Nitrite Urine Negative (Negative); UMIC TRIGGER UACC YES; Urine Blood Negative (Negative); Urine Ketones Trace mg/dL (Negative); Urine Protein 30 (1+) mg/dL (Neg-Trace)
--- NOTE | 2024-11-28 21:39 | PC.NURSE ---
Straight cath for urine sample. Collected and sent to lab.
[2024-11-28 21:41] LABS: Bacteria Urine None Seen (None Seen); RBC Urine 0-2 /HPF (0-2); WBC Urine 0-5 /HPF (0-5)
[2024-11-28] MEDS: cefTRIAXone sodium 1 GM VIAL IVPUSH (21:47)
[2024-11-28 22:21] LABS: Lactic Acid 1.5 mmol/L (0.5-2.0)
[2024-11-28 22:23] VITALS: BP 116/68; PULSE 80; RESP 24; TEMP 36.9; O2SAT 98
--- NOTE | 2024-11-28 22:43 | PM.IMHP ---
History of Present Illness Date of Service: 11/28/24 Chief Complaint: lethargy This is a 84-year-old female with pertinent history of congestive heart failure with preserved ejection fraction, mitral valve regurgitation status post mitraclips, ASD, persistent atrial fibrillation on Eliquis, unspecified dementia, CKD stage 3, IBS who was brought to the emergency department for evaluation of altered mentation and poor p.o. intake. As per the daughter, patient is oriented to self and occasionally to place at baseline. At the time of my evaluation, patient is oriented x2. The daughter states that patient had an episode of nausea and nonbloody emesis 2 days prior to presentation. She has been very sleepy and lethargic over the last couple of days with very poor p.o. intake. This has unlike her and there is a change in mentation at the daughter observed. Also had nonbloody diarrhea 2 days prior to presentation that has since resolved. Patient has no complaints at the time of my evaluation. Unable to obtain review of systems. In the emergency department, imaging with moderate hydronephrosis and left-sided pyelonephritis. CT scan was discussed with Urology who requested admission and will evaluate the patient in a.m.. Also found to have JOLYNN with creatinine 2.48. Review of Systems Review of Systems: Yes Unobtainable due to mental condition and Unobtainable due to mental status [facility] Medical History Mitral regurgitation Cataract of both eyes Anticoagulated on Coumadin Petechial rash Petechial rash Enlarged RV (right ventricle) Tricuspid regurgitation Alzheimer's disease Irritable bowel syndrome (IBS) Osteoporosis Chronic kidney disease (CKD), stage III (moderate) Pure hypercholesterolemia Hypothyroidism Chronic atrial fibrillation CHF due to valvular disease Family History Father Hx of blood clots Mother Hx of blood clots Surgical History Status post implantation of mitral valve leaflet clip (~06/16/20) Hx of tubal ligation Hx of left mastectomy Social History Household Members: Other Household Members Other:: son Housing: House Do you presently have visiting nurse or other home services: No Alcohol intake: never Patient Tobacco Use Status: Never used Tobacco Smoked in Last 30 Days: No e-Cigarette/Vaping Use: Never Used Second Hand Smoke Exposure: No Use of substances other than those prescribed or required for medical reasons: No Advance Directives: Yes Advance Directives on File: Yes Advance Directives Date on File: 08/11/22 service: No Current occupational status: retired Cognitive needs: No Hearing needs: No Vision needs: Yes Meds Allergies Allergy/AdvReac Type Severity Reaction Status Date / Time Sulfa (Sulfonamide Allergy Mild RASH Verified 11/28/24 17:26 Antibiotics) [Sulfa (Sulfonamides)] ciprofloxacin [Cipro] Allergy Unknown rash Verified 11/28/24 17:26 scallops Allergy Unknown Sick to Verified 11/28/24 17:26 the stomach Home Medications ?Medication ?Instructions ?Recorded ?Confirmed ?Last Taken ?Type levothyroxine 75 mcg tablet 75 mcg PO DAILY@0600 05/01/24 11/12/24 05/01/24 History vitamin B complex 1 tab PO DAILY 05/01/24 11/12/24 Unknown History furosemide 20 mg tablet 20 mg PO DAILY 05/07/24 11/12/24 Unknown History Physical Exam Vital Signs and Narrative: Vital Signs: Last Vital Signs Temp 98.4 F 11/28/24 22:23 Pulse 80 11/28/24 22:23 Resp 24 H 11/28/24 22:23 BP 116/68 11/28/24 22:23 Pulse Ox 98 11/28/24 22:23 O2 Del Method Room Air 11/28/24 22:23 BMI result Body Mass Index 15.2 Elderly female lying in bed in no distress Neck supple, no JVD Irregularly irregular, S1-S2 heard Regular breath sounds bilaterally, no wheezing or crackles appreciated Abdomen soft nontender, no guarding, no rigidity Patient is awake, oriented x2, disoriented to time ; no focal motor deficit Psych: Normal mood No pedal edema Results Labs 11/28/24 17:59 11/28/24 17:59 Labs: Laboratory Results - last 24 hr 11/28/24 11/28/24 11/28/24 17:59 21:22 22:01 MCV 93.5 MCH 31.5 MCHC 33.6 RDW 14.2 Plt Count 197 MPV 8.9 L Immature Gran % (Auto) 0.5 H Neut % (Auto) 85.3 H Lymph % (Auto) 4.2 L [place] % (Auto) 9.8 Eos % (Auto) 0.0 Baso % (Auto) 0.2 Lymph # (Auto) 0.5 L [place] # (Auto) 1.2 Eos # (Auto) 0.0 Baso # (Auto) 0.0 Abs Immat Gran (auto) 0.06 H Absolute Neuts (auto) 10.6 H Absolute Nucleated RBC 0.000 Nucleated RBC % (auto) 0.0 Anion Gap 14 Estim Creat Clear Calc 9.8 Estimated GFR 18 Random Glucose 103 Lactic Acid 1.5 Calcium 9.0 Magnesium 2.3 Total Bilirubin 2.2 H AST 32 H ALT 13 Alkaline Phosphatase 81 Total Creatine Kinase 52 B-Natriuretic Peptide 1781 H Total Protein 6.7 Albumin 3.4 L Urine Color Dark Yellow Urine Appearance Clear Urine pH 5.0 Ur Specific [place] 1.020 Urine Protein 30 (1+) H Urine Glucose (UA) Negative Urine Ketones Trace Urine Blood Negative Urine Nitrite Negative Ur Leukocyte Esterase Negative Urine RBC 0-2 Urine WBC 0-5 Ur Squamous Epith Cells 3-5 Urine Bacteria None Seen Hyaline Casts 11-20 Influenza Type A (PCR) NEGATIVE Influenza Type B (PCR) NEGATIVE RSV RNA Qual (PCR) NEGATIVE SARS-CoV-2 RNA (RT-PCR) NEGATIVE Assessment and Plan (1) Acute pyelonephritis: Status: Acute (2) JOLYNN (acute kidney injury): Status: Acute Plan This is a 84-year-old female with pertinent history of congestive heart failure with preserved ejection fraction, mitral valve regurgitation status post mitraclips, ASD, persistent atrial fibrillation on Eliquis, unspecified dementia, CKD stage 3, IBS who was brought to the emergency department for evaluation of altered mentation and poor p.o. intake. #. Sepsis due to left-sided pyelonephritis with moderate hydronephrosis: Resuscitated with IV crystalloids. Lactic acid blood culture obtained. Initiating IV ceftriaxone. Urology consulted from the ER and CT scan was discussed. Will keep patient NPO for possible procedure in a.m. #. Acute metabolic encephalopathy in the setting of above #. Acute kidney injury on CKD: Likely prerenal in the setting of decreased p.o. intake. Monitor creatinine urine output with crystalloid resuscitation. Avoid nephrotoxins #. Congestive heart failure with preserved ejection fraction: No exacerbation during admission. Hold furosemide in the setting of JOLYNN #. Persistent atrial fibrillation: Hold Eliquis until urological evaluation #. Hypothyroidism: On Synthroid #. Dementia, unspecified: On donepezil. Maintain sleep-wake cycle Med rec pending DVT prophylaxis: Mechanical Full code. Discussed with daughter at bedside Admit as inpatient and will require two night minimum hospital stay for IV antibiotics, monitoring of mentation (as above), which is not possible in a lesser acute setting. Specialist consult pending Quality Stroke Does the patient have a stroke diagnosis?: No VTE Prior VTE?: No VTE Risk Level:: Medical - moderate - high VTE Device Contraindication: N/A - Device Ordered VTE Drug Contraindication: Treatment Not Indicated
--- NOTE | 2024-11-28 23:20 | PC.NURSE ---
Hospital bed requested
[2024-11-28 23:25] VITALS: BP 112/57; PULSE 68; RESP 16; O2SAT 92
[2024-11-29] VITALS (9 sets, daily range): BP systolic 101–131; BP diastolic 56–72; PULSE 63–90; RESP 12–24; TEMP 36–36.6; O2SAT 92–95
[2024-11-29] MEDS: 0.9 % Sodium Chloride Flush 3 ML SYRINGE IVFLUSH ×4 (00:52→22:52)
[2024-11-29 06:05] LABS: MANUAL DIFF FLAG NO
[2024-11-29 06:06] LABS: Basophils Percent Auto 0.1 % (0-2); Eosinophils Percent Auto 0.1 % (0-4); Hematocrit 41.9 % (37.0-47.0); Hemoglobin 14.2 g/dl (12.0-16.0); Imm Gran Abs Auto 0.04 X10*3/uL (0.00-0.03); Imm Gran Pct Auto 0.4 % (0.0-0.4); Lymphocytes Absolute Auto 0.6 X10*3/uL (1.2-4.9); Lymphocytes Percent Auto 6.3 % (20-40); Mean Corpuscular HGB Conc 33.9 g/dl (31.0-35.0); Mean Corpuscular Volume 94.4 fL (80.0-98.0); Mean Platelet Volume 8.8 fL (9.4-12.3); Monocytes Absolute Auto 1.1 X10*3/uL (0.1-1.2); Monocytes Percent Auto 11.9 % (2-11); Neutrophils Absolute Auto 7.7 x10*3/uL (2.0-8.3); Neutrophils Percent Auto 81.2 % (45-73); Platelet Count 179 X10*3/uL (160-400); Red Blood Count 4.44 X10*6/uL (4.20-5.50); Red Cell Distribution Width 14.3 % (11.0-16.0); White Blood Count 9.4 X10*3/uL (4.8-10.8)
[2024-11-29 06:19] LABS: Anion Gap 17 (12-20); Blood Urea Nitrogen 58 mg/dL (9-16); Calcium 8.6 mg/dL (8.4-10.2); Carbon Dioxide 26 mmol/L (22-29); Chloride 97 mmol/L (96-108); Creatinine Clr Calc Pharmacy 10.5; Estimated Glomerular Filt Rate 20; Glucose Random 84 mg/dL (60-115); Potassium 4.7 mmol/L (3.3-5.1); Sodium 135 mmol/L (135-145)
--- NOTE | 2024-11-29 08:36 | PC.NURSE ---
Patient sleeping, awakens easily to verbal stimuli. denies pain at this time. incontinent of urine. care provided and patient repositioned for comfort. patient aware of plan of care for admission
--- NOTE | 2024-11-29 08:44 | PC.NURSE ---
med rec confirmed with patients daughter Alida who is her HCP
--- NOTE | 2024-11-29 08:51 | PHA.MEDREC ---
Addendum entered by Allie Bedolla RPh 11/29/24 10:47: [facility] reviewed Original Note: Pharmacy Consult ? Medication Reconciliation Pharmacy has completed the medication reconciliation. Pt poor historian. Called Daughter Alida which knows all meds.
--- NOTE | 2024-11-29 11:11 | P.PNIM_ITS ---
Subjective Subjective Date of Service: 11/30/24 Interval History: seen and evaluated left eye has mild edema no fever or chills still lethargic no other events Review of Systems Review of Systems: Yes Unobtainable due to mental status Physical Exam 2 Vital Signs: Vital Signs: Last Vital Signs Temp 96.8 F 11/29/24 10:00 Pulse 81 11/29/24 10:00 Resp 18 11/29/24 10:00 BP 120/65 11/29/24 10:00 Pulse Ox 92 11/29/24 10:00 O2 Del Method Room Air 11/29/24 10:00 BMI result Body Mass Index 15.2 Const: Other: Constitutional : interactive, not in distress Cardiovascular : no JVP, no lower extremity edema Respiratory : bilateral chest movement, not in resp distress Gastrointestinal: soft, lax, Non tender Skin : Warm, Dry Neurological : Alert with stimulation & disoriented , No focal deficit Objective Data Active Medications Acetaminophen (Acetaminophen 325 Mg Tablet) 650 mg PO Q6H PRN PRN Reason: Pain, Mild 1-3,fever,headache Calcium Carbonate (Calcium Carbonate 750 Mg Tab.Chew) 750 mg PO Q4H PRN PRN Reason: Heartburn Ceftriaxone Sodium (Ceftriaxone Sodium 1 Gm Vial) 1 gm IVPUSH Q24H [facility] Magnesium Hydroxide (Milk Of Magnesia 30 Ml Oral.Susp) 30 ml PO DAILY PRN PRN Reason: Constipation Melatonin (Melatonin 3 Mg Tablet) 6 mg PO BEDTIME PRN PRN Reason: Insomnia Ondansetron HCl (Ondansetron Hcl 4 Mg/2 Ml Vial) 4 mg IVPUSH Q8H PRN PRN Reason: Nausea and Vomiting Sodium Chloride (0.9 % Sodium Chloride Flush 3 Ml Syringe) 3 ml IVFLUSH QSHIFT [facility] Last Admin: 11/29/24 07:25 Dose: 3 ml Documented By: DORIS Labs 11/30/24 06:16 11/30/24 06:16 Labs: Laboratory Results - last 24 hr 11/28/24 11/28/24 11/28/24 17:59 21:22 22:01 MCV 93.5 MCH 31.5 MCHC 33.6 RDW 14.2 Plt Count 197 MPV 8.9 L Immature Gran % (Auto) 0.5 H Neut % (Auto) 85.3 H Lymph % (Auto) 4.2 L [place] % (Auto) 9.8 Eos % (Auto) 0.0 Baso % (Auto) 0.2 Lymph # (Auto) 0.5 L [place] # (Auto) 1.2 Eos # (Auto) 0.0 Baso # (Auto) 0.0 Abs Immat Gran (auto) 0.06 H Absolute Neuts (auto) 10.6 H Absolute Nucleated RBC 0.000 Nucleated RBC % (auto) 0.0 Anion Gap 14 Estim Creat Clear Calc 9.8 Estimated GFR 18 Random Glucose 103 Lactic Acid 1.5 Calcium 9.0 Magnesium 2.3 Total Bilirubin 2.2 H AST 32 H ALT 13 Alkaline Phosphatase 81 Total Creatine Kinase 52 B-Natriuretic Peptide 1781 H Total Protein 6.7 Albumin 3.4 L Urine Color Dark Yellow Urine Appearance Clear Urine pH 5.0 Ur Specific [place] 1.020 Urine Protein 30 (1+) H Urine Glucose (UA) Negative Urine Ketones Trace Urine Blood Negative Urine Nitrite Negative Ur Leukocyte Esterase Negative Urine RBC 0-2 Urine WBC 0-5 Ur Squamous Epith Cells 3-5 Urine Bacteria None Seen Hyaline Casts 11-20 Influenza Type A (PCR) NEGATIVE Influenza Type B (PCR) NEGATIVE RSV RNA Qual (PCR) NEGATIVE SARS-CoV-2 RNA (RT-PCR) NEGATIVE 11/29/24 05:46 MCV 94.4 MCH 32.0 MCHC 33.9 RDW 14.3 Plt Count 179 MPV 8.8 L Immature Gran % (Auto) 0.4 Neut % (Auto) 81.2 H Lymph % (Auto) 6.3 L [place] % (Auto) 11.9 H Eos % (Auto) 0.1 Baso % (Auto) 0.1 Lymph # (Auto) 0.6 L [place] # (Auto) 1.1 Eos # (Auto) 0.0 Baso # (Auto) 0.0 Abs Immat Gran (auto) 0.04 H Absolute Neuts (auto) 7.7 Absolute Nucleated RBC 0.000 Nucleated RBC % (auto) 0.0 Anion Gap 17 Estim Creat Clear Calc 10.5 Estimated GFR 20 Random Glucose 84 Lactic Acid Calcium 8.6 Magnesium Total Bilirubin AST ALT Alkaline Phosphatase Total Creatine Kinase B-Natriuretic Peptide Total Protein Albumin Urine Color Urine Appearance Urine pH Ur Specific [place] Urine Protein Urine Glucose (UA) Urine Ketones Urine Blood Urine Nitrite Ur Leukocyte Esterase Urine RBC Urine WBC Ur Squamous Epith Cells Urine Bacteria Hyaline Casts Influenza Type A (PCR) Influenza Type B (PCR) RSV RNA Qual (PCR) SARS-CoV-2 RNA (RT-PCR) Assessment and Plan (1) Acute pyelonephritis: Status: Acute (2) JOLYNN (acute kidney injury): Status: Acute (3) Weakness: Status: Acute (4) Sepsis: Status: Acute (5) Toxic metabolic encephalopathy: Status: Acute (6) Pyelonephritis: Status: Acute Plan This is a 84-year-old female with pertinent history of congestive heart failure with preserved ejection fraction, mitral valve regurgitation status post mitraclips, ASD, persistent atrial fibrillation on Eliquis, unspecified dementia, CKD stage 3, IBS who was brought to the emergency department for evaluation of altered mentation and poor p.o. intake. # Sepsis due to left-sided pyelonephritis with moderate hydronephrosis complicated with acute toxic metabolic encephalopathy IV crystalloids. follow blood culture IV ceftriaxone Urology consulted , to monitor for need of intervention CT scan was discussed. start diet recurrent reorientation # Acute kidney injury on CKD Likely prerenal in the setting of decreased p.o. intake Monitor creatinine urine output crystalloid resuscitation. Avoid nephrotoxins # Congestive heart failure with preserved ejection fraction No exacerbation during admission. Hold furosemide in the setting of JOLYNN # Persistent atrial fibrillation Hold Eliquis until urological evaluation # Hypothyroidism On Synthroid # Dementia, unspecified donepezil. Maintain sleep-wake cycle DVT prophylaxis: Mechanical Full code. Discussed with daughter at bedside Admit as inpatient and will require overnight hospital stay for IV antibiotics, monitoring of mentation (as above), which is not possible in a lesser acute setting. Specialist consult pending Quality Stroke Does the patient have a stroke diagnosis?: No VTE Prior VTE?: No VTE Risk Level:: Medical - moderate - high VTE Device Contraindication: N/A - Device Ordered VTE Drug Contraindication: Treatment Not Indicated
--- NOTE | 2024-11-29 13:59 | P.CNUR_ITS ---
History of Present Illness Consult details Consult date: 11/29/24 Narrative: CC: Pyelonephritis versus forniceal rupture left kidney 84-year-old female Baseline dementia, CKD 3, malnutrition with BMI reported at 15 Brought into hospital by daughter. Relays episode of nausea with emesis. Noted her mother to be sleepy and lethargic over past few days with low p.o. intake Creatinine found to be 2.3 significantly above baseline WBC elevated UA normal Imaging - Moderate hydronephrosis of the left kidney. Severe infiltration of left-sided perinephric fat. Consider pyelonephritis. The degree of infiltration within the retroperitoneum also raises the possibility of urine extravasation or hemorrhage of uncertain source. Reason creatinine certainly suggestive of forniceal rupture with urinary extravasation and reabsorption. However significant elevation of BUN also favors dehydration with acute on chronic renal insult. Suggest [place] catheter placement and hydration for fluid monitoring If creatinine persistently elevated over 48 hours would consider stenting. No acute indication. Review of Systems 2 Constitutional: Constitutional: Reports as per HPI and Reports no additional constitutional complaints Cardiovascular: Cardiovascular: Reports as per HPI and Reports no additional cardiovascular complaints Respiratory: Respiratory: Reports as per HPI and Reports no additional respiratory complaints Gastrointestinal: Gastrointestinal: Reports as per HPI and Reports no additional gastrointestinal complaints Genitourinary: Genitourinary: Reports as per HPI Musculoskeletal: Musculoskeletal: Reports no additional musculoskeletal complaints and Reports as per HPI Neurologic: Reports system reviewed and no additional complaints, except as documented and Reports as per HPI [facility] Past Medical History Medical History Mitral regurgitation Cataract of both eyes Anticoagulated on Coumadin Petechial rash Petechial rash Enlarged RV (right ventricle) Tricuspid regurgitation Alzheimer's disease Irritable bowel syndrome (IBS) Osteoporosis Chronic kidney disease (CKD), stage III (moderate) Pure hypercholesterolemia Hypothyroidism Chronic atrial fibrillation CHF due to valvular disease Family History Family History Father Hx of blood clots Mother Hx of blood clots Surgical History Surgical History Status post implantation of mitral valve leaflet clip (~06/16/20) Hx of tubal ligation Hx of left mastectomy Social History Social History Household Members: Other Household Members Other:: Son Alex Housing: House Do you presently have visiting nurse or other home services: No Alcohol intake: never Patient Tobacco Use Status: Never used Tobacco Smoked in Last 30 Days: No e-Cigarette/Vaping Use: Never Used Second Hand Smoke Exposure: No Use of substances other than those prescribed or required for medical reasons: No Have you been hit, kicked, punched, or otherwise hurt by someone within the past year? If so, by whom?: No Do you feel safe in your current relationship?: Yes Is there a partner from a previous relationship who is making you feel unsafe now?: No Are you made to feel afraid or neglected: No Advance Directives: Yes Advance Directives on File: Yes Advance Directives Date on File: 08/11/22 Do you have a plan to hurt others: No Plan Recently lost weight without trying: Unsure Patient : No : No service: No Current occupational status: retired Cognitive needs: No Hearing needs: No Vision needs: Yes Meds Allergies Allergy/AdvReac Type Severity Reaction Status Date / Time Sulfa (Sulfonamide Allergy Mild RASH Verified 11/28/24 17:26 Antibiotics) [Sulfa (Sulfonamides)] ciprofloxacin [Cipro] Allergy Unknown rash Verified 11/28/24 17:26 scallops Allergy Unknown Sick to Verified 11/28/24 17:26 the stomach Active Medications: Current Medications Acetaminophen (Acetaminophen 325 Mg Tablet) 650 mg PO Q6H PRN PRN Reason: Pain, Mild 1-3,fever,headache Calcium Carbonate (Calcium Carbonate 750 Mg Tab.Chew) 750 mg PO Q4H PRN PRN Reason: Heartburn Ceftriaxone Sodium (Ceftriaxone Sodium 1 Gm Vial) 1 gm IVPUSH Q24H [facility] Magnesium Hydroxide (Milk Of Magnesia 30 Ml Oral.Susp) 30 ml PO DAILY PRN PRN Reason: Constipation Melatonin (Melatonin 3 Mg Tablet) 6 mg PO BEDTIME PRN PRN Reason: Insomnia Ondansetron HCl (Ondansetron Hcl 4 Mg/2 Ml Vial) 4 mg IVPUSH Q8H PRN PRN Reason: Nausea and Vomiting Sodium Chloride (0.9 % Sodium Chloride Flush 3 Ml Syringe) [facility] Last Admin: 11/29/24 07:25 Dose: 3 ml Home Medications ?Medication ?Instructions ?Recorded ?Confirmed ?Last Taken ?Type levothyroxine 75 mcg tablet 75 mcg PO DAILY@0600 05/01/24 11/29/24 11/28/24 History vitamin B complex 1 tab PO DAILY 05/01/24 11/29/24 11/28/24 History furosemide 20 mg tablet 20 mg PO DAILY 05/07/24 11/29/24 11/28/24 History donepezil 10 mg tablet 10 mg PO BEDTIME 11/29/24 11/29/24 11/27/24 History Physical Exam 2 Vital Signs: Vital Signs: Last Vital Signs Temp 97.7 F 11/29/24 12:00 Pulse 86 11/29/24 12:00 Resp 12 11/29/24 12:00 BP 131/67 11/29/24 12:00 Pulse Ox 92 11/29/24 12:00 O2 Del Method Room Air 11/29/24 12:00 BMI result Body Mass Index 15.2 Const: General: cooperative, healthy appearing, comfortable and no acute distress Orientation/consciousness: patient oriented x3 HEENT: Face and sinus: Yes normal facial exam Mouth: moist mucous membranes Neck: Neck: Yes normal visual inspection, Yes full ROM and Yes trachea midline Chest: Chest palpation & inspection: normal inspection of the chest Resp: Effort & Inspection: normal respiratory effort, able to speak in complete sentences and no respiratory distress GI: Inspection: Yes normal to inspection Back/Spine/Pelvis: Cervical Spine: normal cervical lordosis Thoracic/Lumbar Spine: thoracic and lumbar spine normal to inspection Skin: General skin exam: no rashes or lesions noted Neuro: General: patient oriented x3, tone normal and moves all extremities Extrem: General: Yes normal to inspection and Yes capillary refill normal Results Labs 11/29/24 05:46 11/29/24 05:46 Labs: Abnormal lab results 11/28/24 11/28/24 11/29/24 Range/Units 17:59 21:22 05:46 WBC 12.4 H (4.8-10.8) X10*3/uL MPV 8.9 L 8.8 L (9.4-12.3) fL Immature Gran % (Auto) 0.5 H (0.0-0.4) % Neut % (Auto) 85.3 H 81.2 H (45-73) % Lymph % (Auto) 4.2 L 6.3 L (20-40) % [place] % (Auto) 11.9 H (2-11) % Lymph # (Auto) 0.5 L 0.6 L (1.2-4.9) X10*3/uL Abs Immat Gran (auto) 0.06 H 0.04 H (0.00-0.03) X10*3/uL Absolute Neuts (auto) 10.6 H (2.0-8.3) x10*3/uL Sodium 133 L (135-145) mmol/L Chloride 95 L (96-108) mmol/L BUN 59 H 58 H (9-16) mg/dL Creatinine 2.48 H 2.32 H (0.5-1.4) mg/dL Total Bilirubin 2.2 H (0.0-1.0) mg/dL AST 32 H (5-31) U/L B-Natriuretic Peptide 1781 H (<100) pg/mL Albumin 3.4 L (3.5-5.0) g/dL Urine Protein 30 (1+) H (Neg-Trace) mg/dL Short CBC 11/28/24 11/29/24 Range/Units 17:59 05:46 WBC 12.4 H 9.4 (4.8-10.8) X10*3/uL Hgb 14.6 14.2 (12.0-16.0) g/dl Hct 43.4 41.9 (37.0-47.0) % Plt Count 197 179 (160-400) X10*3/uL BMP 11/28/24 11/29/24 17:59 05:46 Sodium 133 L 135 Potassium 4.4 4.7 Chloride 95 L 97 Carbon Dioxide 28 26 BUN 59 H 58 H Creatinine 2.48 H 2.32 H Calcium 9.0 8.6 Cardiac Enzymes 11/28/24 Range/Units 17:59 Total Creatine Kinase 52 (26-140) U/L Liver Function 11/28/24 Range/Units 17:59 Total Bilirubin 2.2 H (0.0-1.0) mg/dL AST 32 H (5-31) U/L ALT 13 (0-31) U/L Alkaline Phosphatase 81 (39-117) U/L Albumin 3.4 L (3.5-5.0) g/dL Urine 11/28/24 Range/Units 21:22 Urine Color Dark Yellow Urine Appearance Clear Urine pH 5.0 (5.0-9.0) Ur Specific [place] 1.020 (1.005-1.025) Urine Protein 30 (1+) H (Neg-Trace) mg/dL Urine Glucose (UA) Negative (Negative) mg/dL All other labs normal. Assessment and Plan (1) Pyelonephritis: Status: Acute (2) Hydronephrosis: Qualifiers: Hydronephrosis type: unspecified Qualified Code(s): N13.30 - Unspecified hydronephrosis Status: Acute (3) JOLYNN (acute kidney injury): Status: Acute Plan Rehydration Antibiotics Re evaluation for potential stent in 48 hours Procedures Date of Service Date of Service: 11/29/24
--- NOTE | 2024-11-29 15:34 | MHC.CM.PN ---
IMM 11/29/24 DX LETHARGY PYELO VS FORNICEAL RUPTURE VS DEHYDRATION SHE LIVES WITH HER SON. SHE IS INDEPENDENT WITH ALL FUNCTIONAL MOBILITY PER DTR. CONSULTS ORDERED + WOUND CARE HCP ON FILE DP HOME WITH OR WITH OUT SERVICES DTR WILL TRANSPORT HOME
[2024-11-29] MEDS: Metoprolol Succinate ER 50 MG TAB.ER.24H PO (15:36)
[2024-11-29] MEDS: cefTRIAXone sodium 1 GM VIAL IVPUSH (22:45)
[2024-11-29] MEDS: Donepezil HCl 10 MG TABLET PO (22:45)
[2024-11-30 03:48] VITALS: BP 109/59; PULSE 68; RESP 16; TEMP 36.6; O2SAT 94
[2024-11-30] MEDS: Levothyroxine Sodium 75 MCG TABLET PO (05:40)
[2024-11-30 06:35] LABS: MANUAL DIFF FLAG NO
[2024-11-30 06:42] LABS: Basophils Percent Auto 0.1 % (0-2); Eosinophils Percent Auto 0.2 % (0-4); Hematocrit 40.4 % (37.0-47.0); Hemoglobin 13.8 g/dl (12.0-16.0); Imm Gran Abs Auto 0.04 X10*3/uL (0.00-0.03); Imm Gran Pct Auto 0.5 % (0.0-0.4); Lymphocytes Absolute Auto 0.6 X10*3/uL (1.2-4.9); Lymphocytes Percent Auto 7.6 % (20-40); Mean Corpuscular HGB Conc 34.2 g/dl (31.0-35.0); Mean Corpuscular Hemoglobin 31.7 pg (27.0-33.0); Mean Corpuscular Volume 92.9 fL (80.0-98.0); Monocytes Percent Auto 11.8 % (2-11); Neutrophils Absolute Auto 6.7 x10*3/uL (2.0-8.3); Neutrophils Percent Auto 79.8 % (45-73); Platelet Count 197 X10*3/uL (160-400); Red Blood Count 4.35 X10*6/uL (4.20-5.50); Red Cell Distribution Width 14.1 % (11.0-16.0); White Blood Count 8.4 X10*3/uL (4.8-10.8)
[2024-11-30 06:55] LABS: Anion Gap 16 (12-20); Blood Urea Nitrogen 61 mg/dL (9-16); Calcium 8.7 mg/dL (8.4-10.2); Carbon Dioxide 25 mmol/L (22-29); Chloride 100 mmol/L (96-108); Creatinine Clr Calc Pharmacy 15.2; Estimated Glomerular Filt Rate 31; Glucose Random 96 mg/dL (60-115); Potassium 3.9 mmol/L (3.3-5.1); Sodium 137 mmol/L (135-145)
[2024-11-30 07:47] VITALS: BP 107/72; PULSE 82; RESP 18; TEMP 36.6; O2SAT 96
[2024-11-30] MEDS: Metoprolol Succinate ER 50 MG TAB.ER.24H PO (07:53)
[2024-11-30] MEDS: Cholecalciferol (Vitamin D3) 25 MCG TABLET PO (07:53)
[2024-11-30] MEDS: Multivitamin TABLET 1 TAB PO (07:53)
[2024-11-30] MEDS: 0.9 % Sodium Chloride Flush 3 ML SYRINGE IVFLUSH ×3 (07:56→23:41)
--- NOTE | 2024-11-30 11:50 | P.PNIM_ITS ---
Subjective Subjective Date of Service: 11/30/24 Interval History: seen and evaluated feels better , no fever or chills still lethargic reporting diarrhea no other events Review of Systems Review of Systems: Yes all other systems are reviewed and are negative Physical Exam 2 Vital Signs: Vital Signs: Last Vital Signs Temp 97.8 F 11/30/24 07:47 Pulse 82 11/30/24 07:47 Resp 18 11/30/24 07:47 BP 107/72 11/30/24 07:47 Pulse Ox 96 11/30/24 07:47 O2 Del Method Room Air 11/30/24 07:47 BMI result Body Mass Index 15.2 Const: Other: Constitutional : interactive, not in distress Cardiovascular : no JVP, no lower extremity edema Respiratory : bilateral chest movement, not in resp distress Gastrointestinal: soft, lax, Non tender Urology: no CVA tenderness Skin : Warm, Dry Neurological : Alert with stimulation & disoriented , No focal deficit Objective Data Active Medications Acetaminophen (Acetaminophen 325 Mg Tablet) 650 mg PO Q6H PRN PRN Reason: Pain, Mild 1-3,fever,headache Calcium Carbonate (Calcium Carbonate 750 Mg Tab.Chew) 750 mg PO Q4H PRN PRN Reason: Heartburn Ceftriaxone Sodium (Ceftriaxone Sodium 1 Gm Vial) 1 gm IVPUSH Q24H [facility] Last Admin: 11/29/24 22:45 Dose: 1 gm Documented By: HUSSEIN Donepezil HCl (Donepezil Hcl 10 Mg Tablet) 10 mg PO BEDTIME [facility] Last Admin: 11/29/24 22:45 Dose: 10 mg Documented By: HUSSEIN Levothyroxine Sodium (Levothyroxine Sodium 75 Mcg Tablet) 75 mcg PO DAILY@0600 [facility] Last Admin: 11/30/24 05:40 Dose: 75 mcg Documented By: JAME Magnesium Hydroxide (Milk Of Magnesia 30 Ml Oral.Susp) 30 ml PO DAILY PRN PRN Reason: Constipation Melatonin (Melatonin 3 Mg Tablet) 6 mg PO BEDTIME PRN PRN Reason: Insomnia Metoprolol Succinate (Metoprolol Succinate Er 50 Mg Tab.Er.24h) 50 mg PO DAILY [facility]; Protocol Last Admin: 11/30/24 07:53 Dose: 50 mg Documented By: FACUNDO Multivitamins/Vitamin C (Multivitamin Tablet) 1 tab PO DAILY [facility] Last Admin: 11/30/24 07:53 Dose: 1 tab Documented By: FACUNDO Ondansetron HCl (Ondansetron Hcl 4 Mg/2 Ml Vial) 4 mg IVPUSH Q8H PRN PRN Reason: Nausea and Vomiting Sodium Chloride (0.9 % Sodium Chloride Flush 3 Ml Syringe) 3 ml IVFLUSH QSHIFT [facility] Last Admin: 11/30/24 07:56 Dose: 3 ml Documented By: FACUNDO Vitamin D (Cholecalciferol (Vitamin D3) 25 Mcg Tablet) 25 mcg PO DAILY [facility] Last Admin: 11/30/24 07:53 Dose: 25 mcg Documented By: FACUNDO Labs 11/30/24 06:16 11/30/24 06:16 Labs: Laboratory Results - last 24 hr 11/30/24 06:16 MCV 92.9 MCH 31.7 MCHC 34.2 RDW 14.1 Plt Count 197 MPV 9.0 L Immature Gran % (Auto) 0.5 H Neut % (Auto) 79.8 H Lymph % (Auto) 7.6 L [place] % (Auto) 11.8 H Eos % (Auto) 0.2 Baso % (Auto) 0.1 Lymph # (Auto) 0.6 L [place] # (Auto) 1.0 Eos # (Auto) 0.0 Baso # (Auto) 0.0 Abs Immat Gran (auto) 0.04 H Absolute Neuts (auto) 6.7 Absolute Nucleated RBC 0.000 Nucleated RBC % (auto) 0.0 Anion Gap 16 Estim Creat Clear Calc 15.2 Estimated GFR 31 Random Glucose 96 Calcium 8.7 Microbiology Microbiology Results: Microbiology 11/28/24 22:01 Blood Culture - Preliminary Blood - Venous No growth after 24 hours. 11/28/24 22:01 Blood Culture - Preliminary Blood - Venous No growth after 24 hours. Assessment and Plan (1) Hydronephrosis: Status: Acute (2) Pyelonephritis: Status: Acute (3) Sepsis: Status: Acute (4) Acute pyelonephritis: Status: Acute (5) JOLYNN (acute kidney injury): Status: Acute Plan This is a 84-year-old female with pertinent history of congestive heart failure with preserved ejection fraction, mitral valve regurgitation status post mitraclips, ASD, persistent atrial fibrillation on Eliquis, unspecified dementia, CKD stage 3, IBS who was brought to the emergency department for evaluation of altered mentation and poor p.o. intake. # Sepsis due to left-sided pyelonephritis with moderate hydronephrosis complicated with acute toxic metabolic encephalopathy CT scan was discussed. dc IV crystalloids. follow blood culture IV ceftriaxone Urology consulted , to monitor for need of intervention tolerating diet recurrent reorientation # Acute kidney injury on CKD Likely prerenal in the setting of decreased p.o. intake Cr improved to 1.6 close to baseline Monitor creatinine urine output Avoid nephrotoxins # Diarrhea check stool studies, if negative start Imodium # Congestive heart failure with preserved ejection fraction No exacerbation during admission. Hold furosemide in the setting of JOLYNN # Persistent atrial fibrillation Hold Eliquis until urological evaluation # Hypothyroidism On Synthroid # Dementia, unspecified donepezil. Maintain sleep-wake cycle DVT prophylaxis: Mechanical Full code. Discussed with daughter at bedside Admit as inpatient and will require overnight hospital stay for IV antibiotics, monitoring of mentation and Specialist follow up and intervention pending Quality Stroke Does the patient have a stroke diagnosis?: No VTE Prior VTE?: No VTE Risk Level:: Medical - moderate - high VTE Device Contraindication: N/A - Device Ordered VTE Drug Contraindication: Treatment Not Indicated
[2024-11-30 13:00] LABS: Leukocytes Stool Qualitative NEGATIVE (NEGATIVE)
[2024-11-30 14:08] LABS: CDiff Toxin Negative (Negative)
[2024-11-30 14:09] LABS: CDIFF Internal ctrl Dots and bkg OK (V)
[2024-11-30 14:12] LABS: CDiff Gene PCR POSITIVE (Negative)
[2024-11-30] MEDS: vancomycin HCL 125 MG CAPSULE PO ×2 (14:18→19:56)
[2024-11-30 15:01] VITALS: BP 116/64; PULSE 77; RESP 16; TEMP 36.3; O2SAT 95
[2024-11-30] MEDS: Donepezil HCl 10 MG TABLET PO (19:56)
[2024-11-30] MEDS: cefTRIAXone sodium 1 GM VIAL IVPUSH (19:56)
[2024-11-30 23:34] VITALS: BP 124/67; PULSE 82; RESP 18; TEMP 36.7; O2SAT 96
[2024-12-01 06:53] VITALS: BP 115/67; PULSE 84; RESP 16; TEMP 36.6; O2SAT 95
[2024-12-01 08:00] LABS: MANUAL DIFF FLAG NO
[2024-12-01 08:17] LABS: Basophils Percent Auto 0.2 % (0-2); Eosinophils Absolute Auto 0.1 X10*3/uL (0.0-0.4); Eosinophils Percent Auto 2.5 % (0-4); Hematocrit 39.8 % (37.0-47.0); Hemoglobin 13.1 g/dl (12.0-16.0); Imm Gran Abs Auto 0.03 X10*3/uL (0.00-0.03); Imm Gran Pct Auto 0.5 % (0.0-0.4); Lymphocytes Absolute Auto 0.8 X10*3/uL (1.2-4.9); Lymphocytes Percent Auto 13.6 % (20-40); Mean Corpuscular HGB Conc 32.9 g/dl (31.0-35.0); Mean Corpuscular Hemoglobin 31.5 pg (27.0-33.0); Mean Corpuscular Volume 95.7 fL (80.0-98.0); Mean Platelet Volume 9.2 fL (9.4-12.3); Monocytes Absolute Auto 0.7 X10*3/uL (0.1-1.2); Neutrophils Absolute Auto 3.9 x10*3/uL (2.0-8.3); Neutrophils Percent Auto 71.2 % (45-73); Platelet Count 188 X10*3/uL (160-400); Red Blood Count 4.16 X10*6/uL (4.20-5.50); Red Cell Distribution Width 14.1 % (11.0-16.0); White Blood Count 5.5 X10*3/uL (4.8-10.8)
[2024-12-01 08:37] LABS: Anion Gap 11 (12-20); Blood Urea Nitrogen 50 mg/dL (9-16); Calcium 8.7 mg/dL (8.4-10.2); Carbon Dioxide 29 mmol/L (22-29); Chloride 104 mmol/L (96-108); Creatinine Clr Calc Pharmacy 24.1; Estimated Glomerular Filt Rate 52; Glucose Random 82 mg/dL (60-115); Potassium 3.5 mmol/L (3.3-5.1); Sodium 140 mmol/L (135-145)
[2024-12-01] MEDS: vancomycin HCL 125 MG CAPSULE PO ×3 (08:54→20:22)
[2024-12-01] MEDS: Cholecalciferol (Vitamin D3) 25 MCG TABLET PO (08:54)
[2024-12-01] MEDS: Metoprolol Succinate ER 50 MG TAB.ER.24H PO (08:54)
[2024-12-01] MEDS: Multivitamin TABLET 1 TAB PO (08:54)
[2024-12-01] MEDS: 0.9 % Sodium Chloride Flush 3 ML SYRINGE IVFLUSH ×3 (08:55→20:22)
--- NOTE | 2024-12-01 14:19 | HO.PM.IMPN ---
Subjective Subjective Date of Service: 12/01/24 Interval History: seen and evaluated feels better , no fever or chills more alert and interactive resolving diarrhea; CDiff positive no other events Review of Systems Review of Systems: Yes all other systems are reviewed and are negative Physical Exam Vital Signs: Vital Signs: Last Vital Signs Temp 97.8 F 12/01/24 06:53 Pulse 84 12/01/24 06:53 Resp 16 12/01/24 06:53 BP 115/67 12/01/24 06:53 Pulse Ox 95 12/01/24 06:53 O2 Del Method Room Air 12/01/24 06:53 BMI result Body Mass Index 15.2 Const: Other: Constitutional : interactive, not in distress Cardiovascular : no JVP, no lower extremity edema Respiratory : bilateral chest movement, not in resp distress Gastrointestinal: soft, lax, Non tender Urology: no CVA tenderness Skin : Warm, Dry Neurological : Alert with stimulation & disoriented , No focal deficit Objective Data Active Medications Acetaminophen (Acetaminophen 325 Mg Tablet) 650 mg PO Q6H PRN PRN Reason: Pain, Mild 1-3,fever,headache Calcium Carbonate (Calcium Carbonate 750 Mg Tab.Chew) 750 mg PO Q4H PRN PRN Reason: Heartburn Ceftriaxone Sodium (Ceftriaxone Sodium 1 Gm Vial) 1 gm IVPUSH Q24H [facility] Last Admin: 11/30/24 19:56 Dose: 1 gm Documented By: ASHLYN Donepezil HCl (Donepezil Hcl 10 Mg Tablet) 10 mg PO BEDTIME [facility] Last Admin: 11/30/24 19:56 Dose: 10 mg Documented By: ASHLYN Levothyroxine Sodium (Levothyroxine Sodium 75 Mcg Tablet) 75 mcg PO DAILY@0600 [facility] Last Admin: 12/01/24 05:46 Dose: Not Given Documented By: CHAPIS Non-Admin Reason: Patient Refused Magnesium Hydroxide (Milk Of Magnesia 30 Ml Oral.Susp) 30 ml PO DAILY PRN PRN Reason: Constipation Melatonin (Melatonin 3 Mg Tablet) 6 mg PO BEDTIME PRN PRN Reason: Insomnia Metoprolol Succinate (Metoprolol Succinate Er 50 Mg Tab.Er.24h) 50 mg PO DAILY [facility]; Protocol Last Admin: 12/01/24 08:54 Dose: 50 mg Documented By: DIAMANTE Multivitamins/Vitamin C (Multivitamin Tablet) 1 tab PO DAILY [facility] Last Admin: 12/01/24 08:54 Dose: 1 tab Documented By: DIAMANTE Ondansetron HCl (Ondansetron Hcl 4 Mg/2 Ml Vial) 4 mg IVPUSH Q8H PRN PRN Reason: Nausea and Vomiting Sodium Chloride (0.9 % Sodium Chloride Flush 3 Ml Syringe) 3 ml IVFLUSH QSHIFT [facility] Last Admin: 12/01/24 08:55 Dose: 3 ml Documented By: DIAMANTE Vancomycin HCl (Vancomycin Hcl 125 Mg Capsule) 125 mg PO Q6H [facility] Last Admin: 12/01/24 08:54 Dose: 125 mg Documented By: DIAMANTE Vitamin D (Cholecalciferol (Vitamin D3) 25 Mcg Tablet) 25 mcg PO DAILY [facility] Last Admin: 12/01/24 08:54 Dose: 25 mcg Documented By: DIAMANTE Labs 12/01/24 06:15 12/01/24 06:15 Labs: Laboratory Results - last 24 hr 12/01/24 06:15 MCV 95.7 MCH 31.5 MCHC 32.9 RDW 14.1 Plt Count 188 MPV 9.2 L Immature Gran % (Auto) 0.5 H Neut % (Auto) 71.2 Lymph % (Auto) 13.6 L [place] % (Auto) 12.0 H Eos % (Auto) 2.5 Baso % (Auto) 0.2 Lymph # (Auto) 0.8 L [place] # (Auto) 0.7 Eos # (Auto) 0.1 Baso # (Auto) 0.0 Abs Immat Gran (auto) 0.03 Absolute Neuts (auto) 3.9 Absolute Nucleated RBC 0.000 Nucleated RBC % (auto) 0.0 Anion Gap 11 L Estim Creat Clear Calc 24.1 Estimated GFR 52 Random Glucose 82 Calcium 8.7 Microbiology Microbiology Results: Microbiology 11/28/24 22:01 Blood Culture - Preliminary Blood - Venous No growth after 48 hours. 11/28/24 22:01 Blood Culture - Preliminary Blood - Venous No growth after 48 hours. Assessment and Plan (1) Hydronephrosis: Status: Acute (2) Pyelonephritis: Status: Acute (3) Toxic metabolic encephalopathy: Status: Acute (4) Sepsis: Status: Acute (5) Acute pyelonephritis: Status: Acute (6) JOLYNN (acute kidney injury): Status: Acute Plan This is a 84-year-old female with pertinent history of congestive heart failure with preserved ejection fraction, mitral valve regurgitation status post mitraclips, ASD, persistent atrial fibrillation on Eliquis, unspecified dementia, CKD stage 3, IBS who was brought to the emergency department for evaluation of altered mentation and poor p.o. intake. # Sepsis due to left-sided pyelonephritis with moderate hydronephrosis complicated with acute toxic metabolic encephalopathy CT scan as reported dc IV crystalloids. nngative urine and blood culture continue IV ceftriaxone Urology consulted , she will unlikely need of intervention tolerating diet recurrent reorientation # Acute kidney injury on CKD Likely prerenal in the setting of decreased p.o. intake Cr improved to 1 Monitor creatinine urine output Avoid nephrotoxins # Diarrhea +ve CDiff Ag but not the toxin start Imodium and PO Vancomycin # Congestive heart failure with preserved ejection fraction No exacerbation during admission. Hold furosemide in the setting of JOLYNN # Persistent atrial fibrillation Hold Eliquis until urological evaluation # Hypothyroidism On Synthroid # Dementia, unspecified donepezil. Maintain sleep-wake cycle DVT prophylaxis: Mechanical Full code. Admit as inpatient and will require overnight hospital stay for IV antibiotics, monitoring of mentation Quality Stroke Does the patient have a stroke diagnosis?: No VTE Prior VTE?: No VTE Risk Level:: Medical - moderate - high VTE Device Contraindication: N/A - Device Ordered VTE Drug Contraindication: Treatment Not Indicated
--- NOTE | 2024-12-01 14:29 | MHC.CM.PN ---
Per MD rounds patient not medically cleared for dc. PT eval pending. CM will continue to follow.
--- NOTE | 2024-12-01 14:30 | P.CDIM_ITS ---
PROVIDER RESPONSE TEXT: To clarify, the appropriate diagnosis supported by the clinical indicators: Moderate QUERY TEXT: PHYSICIAN'S DOCUMENTATION REQUEST Date of Query: 12/01/2024 07:41 AM EDT Patient Name: Sandra Herrera Admit Date: 11/29/2024 Dear Janel Gar MD, A review of the medical record indicates additional documentation may be needed. Please review below and update the documentation accordingly. Documentation includes the diagnosis of malnutrition. Clinical indicators: Urology consultation note 11/29/24 - Baseline dementia, Malnutrition with BMI reported at 15. Lethargic, low po intake. BMI 15.2 Wt: 37.648kg Ht: 5ft 2in If possible, please provide additional specificity regarding the severity of the malnutrition using t he above information: Mild Moderate Severe Other (explain) Clinically unable to determine (explain) Thank you, Aditi Nevarez, CCS, CDIS Use of terms such as suspected, likely, concern for, or probable (associated with a specific diagnosi s that is being evaluated, monitored, or treated as if it exists) are acceptable and can be coded in the inpatient se tting, when documented at the time of discharge. Please use your independent medical judgment in providing your response. THIS QUERY IS PART OF THE PERMANENT MEDICAL RECORD
--- NOTE | 2024-12-01 14:30 | P.CDIM_ITS ---
PROVIDER RESPONSE TEXT: To clarify, the appropriate diagnosis supported by the clinical indicators: Acute QUERY TEXT: PHYSICIAN'S DOCUMENTATION REQUEST Date of Query: 12/01/2024 07:38 AM EDT Patient Name: Sandra Herrera Admit Date: 11/29/2024 Dear Janel Gar MD, A review of the medical record indicates additional documentation may be needed. Please review below and update the documentation accordingly. Clinical Indicators: Progress notes 11/30/24 - Sepsis due to left sided pyelonephritis with moderate hydronephrosis complica terrell by encephalopathy. CT scan dc IV cystalloids. IV Ceftriaxone. Clarify which of the following accurately represents the acuity of the Pyelonephritis: Possible options might include: Acute Chronic Other specified Other (explain) Clinically unable to determine (explain) Thank you, Aditi Nevarez, CCS, CDIS Use of terms such as suspected, likely, concern for, or probable (associated with a specific diagnosi s that is being evaluated, monitored, or treated as if it exists) are acceptable and can be coded in the inpatient se tting, when documented at the time of discharge. Please use your independent medical judgment in providing your response. THIS QUERY IS PART OF THE PERMANENT MEDICAL RECORD
[2024-12-01 14:34] VITALS: BMI 15.2
--- NOTE | 2024-12-01 14:54 | MHC.CLN ---
NUTRITION DIET=2 GRAM SODIUM. QUALIFIES MODERATELY MALNOURISHED IN THE CONTEXT OF CHRONIC ILLNESS. BMI=15.2, UNDERWEIGHT. OVERALL, WEIGHT APPEARS STABLE X ONE YEAR. SKIN WITH REDNESS TO BUTTOCK. FOLLOW FOR PO INTAKE AND ADD SUPPLEMENT IF PO LESS THAN 50%. SEE CLINICAL NUTRITION ASSESSMENT 12/01/24.
[2024-12-01 15:32] VITALS: BP 107/58; PULSE 81; RESP 18; TEMP 36.6; O2SAT 92
--- NOTE | 2024-12-01 16:31 | HO.WOUND ---
Wound Consult: Initial 84yr old?female admitted to [facility] [place] on 11/28/24 - See progress notes and H&P for detailed history.? Wound consult placed for Coccyx.? Patient agreeable to assessment and photo documentation.? Patient noted to be in brief at the time of my assessment and in a recliner chair. Recommend adding waffle cushion to chair when up and limit uninterrupted sit time to 1-2 hr increments. Sacrum Etiology: ?Stage 1 Pressure Injury ?Present on Admission Measurements: 3cm x3cm x 0cm Wound Bed: intact red pink nonblanchable tissue Drainage / Odor: None Edges: ? irregular and attached Shweta wound: ?Intact [place] No Induration, Fluctuance or Warmth noted Pain: denies Goals of Treatment: ? Foam dressing to aid in pressure redistribution, waffle cusion when up to chair and limit uninterrupted sit times in recliner chair. Recommendations: 1. Turn and Reposition every 2 hours and as needed for patient comfort.? Use pillows or wedges to support off loading positions. 2. Off Load all bony prominences with use of pillows and heel boots if needed.? Apply Preventative foams where needed. ? 3. Monitor for incontinence and moisture control, use barrier creams when needed for prevention and treatment. 4. Provide adequate and supplemental nutrition.? 5. Order low air loss mattress. 6. When applicable maintain blood glucose levels per Providers order. Sacrum - Off Load Pressure with Q2 hr turns and use of pillows - Cleanse with PH balance spray or wipes, pat dry. ?Apply foam dressing to aid in off loading and protection from friction. Change every 3-5 days and PRN. Use waffler cushion when up to recliner chair. Limit uninterrupted sit time to 1-2 hrs at a time. Re-consult wound care Nurse for wound deterioration or wound changes.
[2024-12-01 19:19] VITALS: BP 138/78; PULSE 92; RESP 18; TEMP 36; O2SAT 93
[2024-12-01] MEDS: Donepezil HCl 10 MG TABLET PO (20:22)
[2024-12-01] MEDS: cefTRIAXone sodium 1 GM VIAL IVPUSH (20:22)
[2024-12-01 23:21] VITALS: BP 143/81; PULSE 86; RESP 18; TEMP 36.9; O2SAT 95
[2024-12-02] MEDS: vancomycin HCL 125 MG CAPSULE PO ×3 (03:13→13:54)
[2024-12-02] MEDS: Levothyroxine Sodium 75 MCG TABLET PO (05:51)
[2024-12-02 08:00] VITALS: BP 126/73; PULSE 88; RESP 18; TEMP 36.4; O2SAT 92
[2024-12-02] MEDS: Cholecalciferol (Vitamin D3) 25 MCG TABLET PO (08:29)
[2024-12-02] MEDS: Multivitamin TABLET 1 TAB PO (08:29)
[2024-12-02] MEDS: Metoprolol Succinate ER 50 MG TAB.ER.24H PO (08:30)
[2024-12-02] MEDS: 0.9 % Sodium Chloride Flush 3 ML SYRINGE IVFLUSH (08:32)
--- NOTE | 2024-12-02 13:22 | MHC.CM.PN ---
Per MD rounds patient likely dc today. PT rec home w/ services. Patient/daughter prefer [facility]. [facility] delivered. Daughter will transport.
--- NOTE | 2024-12-02 13:48 | PM.DS ---
DS: Providers Provider Date of Service: 12/02/24 Date of admission: 11/28/24 22:42 Date of discharge: 12/02/24 Primary care physician: Darrian Proctor MD Consults: 11/28/24 22:42 Consult to Urology Routine Consulting Provider: [facility] [place] Urology Services Reason for consultation: Hydronephrosis with pyelonephritis 11/29/24 10:06 Consult to Wound Care Routine Reason for consultation: stage 1 to coccyx DS: Diagnosis Discharge Diagnosis (1) Hydronephrosis: Status: Acute (2) Pyelonephritis: Status: Acute (3) Toxic metabolic encephalopathy: Status: Acute (4) Sepsis: Status: Acute (5) Acute pyelonephritis: Status: Acute (6) JOLYNN (acute kidney injury): Status: Acute (7) Weakness: Status: Acute DS: Summary Hospital Course Hospital Course: Admission note HPI This is a 84-year-old female with pertinent history of congestive heart failure with preserved ejection fraction, mitral valve regurgitation status post mitraclips, ASD, persistent atrial fibrillation on Eliquis, unspecified dementia, CKD stage 3, IBS who was brought to the emergency department for evaluation of altered mentation and poor p.o. intake. As per the daughter, patient is oriented to self and occasionally to place at baseline. At the time of my evaluation, patient is oriented x2. The daughter states that patient had an episode of nausea and nonbloody emesis 2 days prior to presentation. She has been very sleepy and lethargic over the last couple of days with very poor p.o. intake. This has unlike her and there is a change in mentation at the daughter observed. Also had nonbloody diarrhea 2 days prior to presentation that has since resolved. Patient has no complaints at the time of my evaluation. Unable to obtain review of systems. In the emergency department, imaging with moderate hydronephrosis and left-sided pyelonephritis. CT scan was discussed with Urology who requested admission and will evaluate the patient in a.m.. Also found to have JOLYNN with creatinine 2.48. Hospital course The patient was treated for the following: # Sepsis due to left-sided pyelonephritis with moderate hydronephrosis complicated with acute toxic metabolic encephalopathy CT scan as reported Moderate hydronephrosis of the left kidney. Severe infiltration of left-sided perinephric fat. Consider pyelonephritis. Treated with IV Ceftriaxone and Fluids with good response as bother urine and blood cultures were negative. Evaluated by Urology team who did not think she needs intervention as pain, kidney funtion improved. recommended outpatient follow up with Dr Paula to repeat images and possible intervention once the infection is treated. recurrent reorientation as she improved back to baseline. Seen by PT who recommended home PT. # Acute kidney injury on CKD3. Likely prerenal in the setting of decreased p.o. intake and Lasix usage. Cr improved to 1 with IV hydration. Follow as outpatient. # Diarrhea secondary to +ve CDiff Ag but not the toxin. no signes of colitis. Continue PO Vancomycin to finish total of 2 weeks # Congestive heart failure with preserved ejection fraction. No exacerbation during admission. restarted furosemide in discharge as it was held for JOLYNN. # Persistent atrial fibrillation, Hld Eliquis and restarted on discharge. Discharge plan Kidney function improved to baseline. Urine cleated up. Restart home medications Continue Ceftin for 1 more week Vancomycin every 6 hours for 10 more days Take Imodium as needed for diarrhea To follow with Dr Paula as outpatient Time Attestation Discharge Coordination Time (in mins): 37 Quality: Safe Use of Opioids Does Pt have an Active Cancer Diagnosis on the Problem List?: No Quality: Stroke Does the patient have a stroke diagnosis?: No Physical Exam Vital Signs: Vital Signs: Last Vital Signs Temp 97.6 F 12/02/24 08:00 Pulse 88 12/02/24 08:00 Resp 18 12/02/24 08:00 BP 126/73 12/02/24 08:00 Pulse Ox 92 12/02/24 08:00 O2 Del Method Room Air 12/02/24 08:00 O2 Flow Rate 1 12/01/24 15:32 BMI result Body Mass Index 15.2 Const: Other: Constitutional : interactive, not in distress Cardiovascular : no JVP, no lower extremity edema Respiratory : bilateral chest movement, not in resp distress Gastrointestinal: soft, lax, Non tender Urology: no CVA tenderness Skin : Warm, Dry Neurological : Alert with stimulation & disoriented , No focal deficit DS: Data Data Completed and Pending Labs on day of discharge: Preliminary micro results at discharge 11/28/24 22:01 Blood Culture - Preliminary Blood - Venous No growth after 48 hours. 11/28/24 22:01 Blood Culture - Preliminary Blood - Venous No growth after [address] scan - abdomen: Radiologist's impression: IMPRESSION: 1. Moderate hydronephrosis of the left kidney. Severe infiltration of left-sided perinephric fat. Consider pyelonephritis. The degree of infiltration within the retroperitoneum also raises the possibility of urine extravasation or hemorrhage of uncertain source. Recommend follow-up evaluation, preferably with contrast. 2. There are multiple small nonobstructive calculi within the left kidney. No gross evidence of ureteral calculus. 3. There is a small amount of free fluid within the left upper quadrant and there is a small to moderate amount of pelvic free fluid. This document has been electronically signed by: Gaby Ruiz MD on 11/28/2024 20:51:58 Discharge Plan Discharge Anticipated Discharge Date/Time: 12/02/24 11:15 Patient Disposition: Home Health Service Discharge Diagnosis: Pyelonephritis Hydronephritis Referrals: Mindy SPARROW [Outside] - 1 Day (Mindy SPARROW will call you to schedule home physical therapy appointments.) Darrian Proctor MD [Primary Care Provider] - 1 Week Discharge Medications: New vancomycin 125 mg Capsule 125 mg PO Q6H 10 Days Qty: 40 0RF cefuroxime axetil 500 mg tablet 500 mg PO BID Qty: 14 0RF Continued levothyroxine 75 mcg tablet 75 mcg PO DAILY@0600 vitamin B complex Tablet 1 tab PO DAILY donepezil 10 mg tablet 10 mg PO BEDTIME cholecalciferol (vitamin D3) 25 mcg (1,000 unit) capsule 25 mcg PO DAILY 90 Days Qty: 90 3RF metoprolol succinate 100 mg tablet extended release 24 hr 100 mg PO DAILY 90 Days Qty: 90 3RF furosemide 20 mg tablet 20 mg PO DAILY Eliquis 2.5 mg tablet 2.5 mg PO BID 90 Days Qty: 180 3RF Discharge Orders: Discharge Order (Routine); Ordered 12/02/24 Ordered By: Janel Gar Diet: Advance to usual diet Activity on Discharge: As tolerated Stand Alone Forms: Patient Portal Discharge page Print Language: Andorran Care Plan Goals: Kidney function improved to baseline. Urine cleated up. Restart home medications Continue Ceftin for 1 more week Vancomycin every 6 hours for 10 more days Take Imodium as needed for diarrhea To follow with Dr Paula as outpatient Health Concerns: Pyelonephritis Hydronephritis Kidney injury Plan of Treatment: Antibiotics Follow up with Urology Assessment: as above
--- NOTE | 2024-12-02 14:36 | P.F2F_ITS ---
Service Date Service Date: 12/02/24 Encounter Date of encounter: 12/02/24 Reasons for Services Signs and symptoms assessed: deconditioning Reason for physical therapy: home safety and mobility and therapeutic exercises Homebound: Leaving the home is medically contraindicated at this time without the asist of a device and/or another person due th the listed conditions above and below. Reason homebound: unsteady gait / fall risk Certification: Based on the above findings, I certify that this patient is confined to the home and needs intermittent [facility] care, physical therapy and/or speech therapy, or continues to need occupational therapy. The patient is under my care, and I have initiated the establishment of the plan of care. The patient will be followed by a physician who will periodically review the plan of care. Time Spent With Patient Time: Total time managing care of this patient today ____ minutes.
== END 2024-12-02 14:29 | disposition home health service (06) | DRG 871 ==
LOC: HO.ED 22:26 → HO.EDOVER 22:55 → HO.S3 11-29 08:07
PROVIDERS: Physician Assistant; Physician Assistant Medical; Admitting Provider Student in an Organized Health Care Education/Training Program; Emergency Provider Internal Medicine; PCP Internal Medicine; Visit Provider Student in an Organized Health Care Education/Training Program
DX: A41.9 Sepsis, unspecified organism (principal); G92.8 Other toxic encephalopathy; N17.9 Acute kidney failure, unspecified; I50.32 Chronic diastolic (congestive) heart failure; E44.0 Moderate protein-calorie malnutrition; Z68.1 Body mass index [BMI] 19.9 or less, adult; I48.19 Other persistent atrial fibrillation; N13.6 Pyonephrosis; A04.72 Enterocolitis due to Clostridium difficile, not specified as recurrent; E03.9 Hypothyroidism, unspecified; F03.90 Unspecified dementia, unspecified severity, without behavioral disturbance, psychotic disturbance, mood disturbance, and anxiety; N18.30 Chronic kidney disease, stage 3 unspecified; Z20.822 Contact with and (suspected) exposure to COVID-19; Z79.01 Long term (current) use of anticoagulants; Z79.890 Hormone replacement therapy; Z79.899 Other long term (current) drug therapy
CPT/HCPCS: 0241U; 36415; 71046; 71250; 74176; 76705; 80048; 80053; 81001; 82550; 83605; 83735; 83880; 84484; 85025; 87040; 87324; 87493; 89055; 93005; 97162; 99285; J0696

== ENCOUNTER → 2024-11-28 17:27 | Outpatient (BNV) | payer MEDICARE, SELFPAY | PROVIDERS: Admitting Provider Student in an Organized Health Care Education/Training Program; Emergency Provider Internal Medicine; PCP Internal Medicine; Visit Provider Internal Medicine | DX: I48.91 Unspecified atrial fibrillation (principal); I45.10 Unspecified right bundle-branch block | CPT/HCPCS: 93010 ==

== ENCOUNTER → 2024-11-28 17:27 | Outpatient (BNV) | payer MEDICARE, SELFPAY | PROVIDERS: Visit Provider Radiology Diagnostic Radiology | DX: N13.2 Hydronephrosis with renal and ureteral calculous obstruction (principal); J90 Pleural effusion, not elsewhere classified; J98.11 Atelectasis; I51.7 Cardiomegaly; R10.9 Unspecified abdominal pain; R11.2 Nausea with vomiting, unspecified | CPT/HCPCS: 71046; 71250; 74176; 76705 ==

== ENCOUNTER → 2024-11-28 18:12 | Outpatient (BNV) | payer MEDICARE, SELFPAY | PROVIDERS: Emergency Provider Internal Medicine; PCP Internal Medicine; Visit Provider Student in an Organized Health Care Education/Training Program | DX: A41.9 Sepsis, unspecified organism (principal); N10 Acute pyelonephritis; N17.9 Acute kidney failure, unspecified; G93.41 Metabolic encephalopathy | CPT/HCPCS: 99222; 99232; 99239 ==

== ENCOUNTER → 2024-11-28 22:42 | Outpatient (BNV) | payer MEDICARE, SELFPAY | PROVIDERS: Admitting Provider Student in an Organized Health Care Education/Training Program; Emergency Provider Internal Medicine; PCP Internal Medicine; Visit Provider Urology | DX: N12 Tubulo-interstitial nephritis, not specified as acute or chronic (principal); N13.30 Unspecified hydronephrosis; N17.9 Acute kidney failure, unspecified | CPT/HCPCS: 99222 ==

== ENCOUNTER 2024-12-11 11:52 | Outpatient (REF) | payer MEDICARE, SELFPAY ==
[2024-12-11 13:11] LABS: MANUAL DIFF FLAG NO
[2024-12-11 13:36] LABS: Basophils Absolute Auto 0.1 X10*3/uL (0.0-0.2); Basophils Percent Auto 0.7 % (0-2); Eosinophils Absolute Auto 0.1 X10*3/uL (0.0-0.4); Hematocrit 42.8 % (37.0-47.0); Hemoglobin 13.7 g/dl (12.0-16.0); Imm Gran Abs Auto 0.05 X10*3/uL (0.00-0.03); Imm Gran Pct Auto 0.7 % (0.0-0.4); Lymphocytes Absolute Auto 1.2 X10*3/uL (1.2-4.9); Mean Corpuscular Hemoglobin 31.6 pg (27.0-33.0); Mean Corpuscular Volume 98.6 fL (80.0-98.0); Mean Platelet Volume 8.8 fL (9.4-12.3); Monocytes Absolute Auto 0.5 X10*3/uL (0.1-1.2); Monocytes Percent Auto 6.6 % (2-11); Neutrophils Absolute Auto 5.5 x10*3/uL (2.0-8.3); Platelet Count 377 X10*3/uL (160-400); Red Blood Count 4.34 X10*6/uL (4.20-5.50); Red Cell Distribution Width 13.9 % (11.0-16.0); White Blood Count 7.3 X10*3/uL (4.8-10.8)
[2024-12-11 13:54] LABS: Appearance Urine Clear; Color Urine Yellow; Glucose Urine UA Negative (Negative); Leukocyte Esterase Urine Small (1+) (Negative); Nitrite Urine Negative (Negative); UMIC TRIGGER UACC YES; Urine Blood Trace (Negative); Urine Ketones Negative (Negative); Urine Protein 30 (1+) mg/dL (Neg-Trace)
[2024-12-11 13:58] LABS: B Type Natriuretic Peptide 697 pg/mL (<100)
[2024-12-11 14:05] LABS: Alanine Aminotransferase 20 U/L (0-31); Albumin Level 3.7 g/dL (3.5-5.0); Anion Gap 14 (12-20); Aspartate Amino Transferase 41 U/L (5-31); Blood Urea Nitrogen 36 mg/dL (9-16); Calcium 9.4 mg/dL (8.4-10.2); Carbon Dioxide 30 mmol/L (22-29); Chloride 99 mmol/L (96-108); Cholesterol 190 mg/dL (<200); Estimated Glomerular Filt Rate 49; Glucose Fasting 88 mg/dL (60-99); HDL Cholesterol 69 mg/dL (>40); LDL Cholesterol Calculated 104 mg/dL (<100); Potassium 4.2 mmol/L (3.3-5.1); Sodium 139 mmol/L (135-145); Total Protein 7.2 g/dL (6.5-8.0); Triglycerides 86 mg/dL (<150)
[2024-12-11 14:09] LABS: Bacteria Urine 1+ (None Seen); Calcium Oxalate Crystals Urine Present; Hyaline Casts Urine 0-2 /LPF (0-2); Squamous Epithelial Cell Urine 0-2 /HPF (0-2); UACC Culture Trigger YES; WBC Urine 0-5 /HPF (0-5)
[2024-12-11 14:28] LABS: Alkaline Phosphatase 102 U/L (39-117); Free T4 (Free Thyroxine) 1.39 ng/dL (0.71-1.85); Thyroid Stimulating Hormone 4.35 uIU/mL (0.32-4.0)
--- OUTSIDE RECORDS SUMMARY | 2024-12-11 14:50 | XMS_ITS ---
Author Organization [facility] Address [address] [place] [address] Care Team Providers Care Road Advisor Name Role Phone Hitesh CRENSHAW [place] Primary Care Provider Patti Arellano Unavailable [phone] Allergies Allergen (clinical drug ingredient) Drug/Non Drug [...] 024 Encounters Encounter Location Date Provider Diagnosis [facility] [place] [address] [place] [address] 05/16/2024 Patti Andrade Atherosclerosis of [place] artery of both lower extremities, with unspecified presence of clinical manifestation I70.203 ; Tinea unguium B35.1 ; Pain in right toe(s) M79.674 and Pain in left toe(s) M79.675 Assessments Encounter Date Diagnosis (ICD Code) Assessment Notes Treatment Notes Treatment Clinical Notes Section Notes 05/16/2024 Atherosclerosis of [place] artery of both lower extremities, with unspecified presence of clinical manifestation (ICD-10 - I70.203) 05/16/2024 Tinea unguium (ICD-10 - B35.1) 05/16/2024 Pain in right toe(s) (ICD-10 - M79.674) 05/16/2024 Pain in left toe(s) (ICD-10 - M79.675) Plan Of Treatment Next Appt Details Follow Up: 2 Months, Reason: Provider Name:Patti ponce, 12/31/2024 02:00:00 PM, [address] [place] [address], [id number], Procedure Notes * Category Sub-Category Detail Notes [...] as necessary. Patient chooses, no pharmaceutical tx ([id number]) Nail Reduction Nail Reduction Trimming of dyst rophic nails performed to reduce/remove overall nail length and girth, by manual and electrical means with use of a nail nipper and/or dremel, to more viable healthy nail plate or bed tissue 6-10 ([id number]) Progress Notes * Sandra HERRERA ADOB: [birth year] (84 yo F)Acc No.[id number]:05/16/2024 Progress Note Patient:?Sandra Herrera Provider:?Patti Andrade DPM :1940???Age:84 Y???Sex:Female D ate:05/16/2024 Address:[address], [id number] Pcp:Darrian Proctor MD Subjective: * Chief Complaints: [...] History:?tubal liga tion 1970mastectomy 1999torn knee ligament 62245 micro clips attached to mitral valve 06/16/2020 * Hospitalization/Major Diagno stic Procedure:?[facility]- Right hand infection 05/01-05/04/24 * Family History:?Mother: dece ased.?Father: .? * Social History:?Tobacco Use:?Tobacco Use/Smoking?Are you a:?nonsmoker ?Additional Findings: Tobacco Non-User?Current non-smoker ?Tobacco use other than smoking?Are you an other tobacco user??No ???Miscellaneous:?no Caffeine. ?Children: yes, 8. ?Exercise: yes, walking, housework, gardening/yard work,glider. ?Marital status: single. ?Occupation: Retired- [employer] at the [employer]. * Medications:?TakingEliquis 2 .5 MG Tablet [...] Assessment: 1.?Tinea unguium - B35.1?2.? Atherosclerosis of ass[place] sioux artery of both lower extremities, with unspecified [...] as necessary. Patient chooses, no pharmaceutical tx ([id number]).?Nail Reduction:?Nail Reduction?Trimming of dystrophic nails performed to reduce/remove overall nail length and girth, by manual and electrical means with use of a nail nipper and/or dremel, to more viable healthy nail plate or bed tissue 6-10 ([id number]).? * Procedure Codes:?G0127 RENETTA ING DYSTROPHIC NAILS ANY #, Modifiers: XS , [id number] DEBRIDE NAIL, 1-5, Modifiers: XS * Follow Up:?2 Months * Images: * Sign off status: Completed true * Provider:Denisa Andrade, DPM Date:? Generated for Mariani laisha/Svetlana/eTransmitting on:?12/11/2024 02:49 PM EDT History and Physical Notes * [...]
--- OUTSIDE RECORDS SUMMARY | 2024-12-11 14:50 | XMS_ITS | Data Portability ---
Author Organization ROSALIE Dickson s [facility] [address] Address [address] [place] [address] Assessment No assessment recorded. Plan of Treatment Reminders Order Date Submit Date Provider Last Modified By Organization Details Last Modified Time Details Appointments None recorded. Lab urinalysis, dipstick 2023 [facility] [address] [facility] [address] [place], [address], 4 15:12:11 rapid flu (A+B) 2023 ik6 [address] [address] [place], [address], 4 15:21:36 SARS CoV 2 (COVID-19) Ag, QL, IA, upper respiratory specimen 2023 [facility] [address] [place], [address], 4 15:21:36 Referral None recorded. Procedures None recorded. Surgeries None recorded. Imaging None recorded. Medication Orders amoxicillin 875 mg-potassiu m clavulanate 125 mg tablet [address] [facility] [address] [facility], [address] [place] [address], [address], 4 14:55:34 albuterol sulfate HFA 90 mcg/actuati on aerosol inhaler 2023 [facility], [address] [place] [address], [address], 15:21:39 azithromyci n 250 mg tablet 2023 024 [email or web address] [facility], [address] [place] [address], [address], 14:55:41 Patient TargetsNo targets recorded. Patient Instructions Encounter Date Encounter Id Patient Instructions Last Modified By Organization Details Last Modified Time 07/11/2024 [id number] pneumonia: care instructions [email or web address] Not available 07/11/2024 15:21:36 Reason for Referral None Reported. Results Created Date Observation Date Name Description Value Unit Range Abnormal Flag Note LastModifiedBy Organization Detail LastModifiedTime 07/11/2007/11/2024 SARS CoV 2 (COVI D-19) Ag, QL, IA, upper respi rator y speci men Unknown Analyte negati ve Not Available betsy ngo [address] [place], [address], 07/11/2024 14:46:48 07/11/20 24 07/11/2024 SARS CoV 2 (COVI D-19) Ag, QL, IA, upper respi rator y speci men Unknown Analyte yes Not Available arely [address] [place], [address], 07/11/2024 14:46:48 07/11/2007/11/2024 rapid flu (A+B) Unknown Analyte negati ve Not Available 2099betsy ngo [address] [place], [address], 07/11/2024 14:46:41 07/11/2007/11/2024 rapid flu (A+B) Unknown Analyte negati ve Not Available betsy ngo [address] [place], [address], 07/11/2024 14:46:41 11/26/07/22/2024 urina lysis , dipst ick Unknown Analyte Yellow Not Available _ arely [address] [place], [address], 07/22/2024 14:55:12 07/22/2007/22/2024 urina lysis , dipst ick Unknown Analyte Clear Not Available arely [address] [place], [address], 07/22/2024 14:55:12 07/22/2007/22/2024 urina lysis , dipst ick Unknown Analyte Negati ve Not Available betsy ngo [address] [place], [address], 07/22/2024 14:55:12 07/22/2007/22/2024 urina lysis , dipst ick Unknown Analyte Negati ve Not Available betsy ngo [address], [address], 07/22/2024 14:55:12 07/22/2007/22/2024 urina lysis , dipst ick Unknown Analyte Negati ve Not Available betsy ngo [address], [address], 07/22/2024 14:55:12 07/22/2007/22/2024 urina lysis , dipst ick Unknown Analyte 1.025 Not Available arely [address], [address], 07/22/2024 14:55:12 07/22/2007/22/2024 urina lysis , dipst ick Unknown Analyte Trace- intact Not Available betsy ngo [address], [address], 07/22/2024 14:55:12 07/22/2007/22/2024 urina lysis , dipst ick Unknown Analyte 5.5 Not Available 2099Khurram_ arely [address], [address], 07/22/2024 14:55:12 07/22/2007/22/2024 urina lysis , dipst ick Unknown Analyte 30 mg/dL Not Available _betsy ngo [address], [address], 07/22/2024 14:55:12 07/22/2007/22/2024 urina lysis , dipst ick Unknown Analyte 0.2 E.U./d L Not Available _betsy ngo [address], [address], 07/22/2024 14:55:12 07/22/2007/22/2024 urina lysis , dipst ick Unknown Analyte Negati ve Not Available 2099tori ngo [address], [address], 07/22/2024 14:55:12 07/22/2007/22/2024 urina lysis , dipst ick Unknown Analyte Trace Not Available _ arely [address], [address], 07/22/2024 14:55:12 Result Notes None recorded. Problems Name Problem SNOMED Code Status Onset Date Resolution Date Notes Provider Name and Address Organization Details Recorded Time Congestive heart failure 56225096 Active 024 Sandra Dariusz null, [place] - [facility] 14:45:47 Problem Notes None recorded. Medical Equipment None Reported. Allergies Allergen ID Allergen Name Allergen Category Reaction Reaction Severity Criticality Documentation Date Start Date Code Code System Note Provider Name and Address Organization Details Recorded Time 7624066 Cipro medicatio n Not available Not available Not available 07/11/202404093 3 RxNorm Sandra Dariusz null, PA - [facility] 4 14:43:17 7402709 scallop allergeni c extract food Not available Not available Not available 07/11/2024 87316 6 RxNorm Sandra Arzola angelo [facility] 4 14:43:30 0866731 Substance with sulfonami de structure and antibacte rial mechanism of action (substanc e) medicatio n Not available Not available Not available 07/11/2024 64998 8003 SNOMED Sandra Arzola angelo [facility] 4 14:43:34 Medications Name Sig [...] Last Updated DateTime 157.48 cm 15 kg/m2 34311.5 7 g 0 68 /min 18 /min 100 % 100 % 99 [degF] 134 mm[Hg] 84 mm[Hg] Sandra Arzola PA - [facility] 14:49:58 Date Recorded Body height Body mass index (BMI) Body weight Respiratory rate Body temperature Oxygen saturation Oxygen saturation in Arterial blood by Pulse oximetry Heart rate Systolic blood pressure Diastolic blood pressure Provider Name and Address Organization Details Last Updated DateTime 157.48 cm 15.2 kg/m2 37459.1 7 g 18 /min 97.5 [degF] 97 % 97 % 54 /min 139 mm[Hg] 70 mm[Hg] Melvi [place] - [facility] 14:52:35 Social History Question Answer Notes LastModified by [facility] ion Details LastModified Time Tobacco Smoking Status Never Smoker Sandra stephens Great[facility] - [facility] 07/11/2024 14:46:17 What Is [...] SNOMED-CT Code Diagnosis ICD10 Code Diagnosis Note [id number] 21005_[address] [address] 02/17/2020 11:10:35 02/17/2020 12:53:[address] [id number] 2[address] [address] 07/07/2016 09:49:52 07/07/2016 11:21:58 [id number] ROSALIE Rivas [address] [address] [place] [address] 07/11/2024 14:37:21 07/11/2024 15:28:24 Community acquired pneumonia 242587568 J18.9 Treatment is antibiotic s as prescribed [...] recommende d to verify pneumonia has resolved. [id number] ROSALIE Rivas [address] [place] [address] 07/22/2024 14:39:53 07/22/2024 15:18:16 Mild dehydration 4082017675 108 E86.0 DEHYDRATIO N- Dehydratio n happens [...] Cosme Member ID Guarantor Name 02/17/2020 1 [facility] (MEDICARE REPLACEMENT HMO) [id number] Sandra Herrera [id number] Sandra Herrera 07/11/2024 1 [facility] [place] O BLUE (MEDICARE REPLACEMENT HMO) [id number] Sandra Herrera [id number] Sandra Herrera 07/22/2024 1 [facility]UE (MEDICARE REPLACEMENT HMO) [id number] Sandra Herrera [id number] Sandra Herrera Notes Date Note Type Note Provider Name and Address Organization Details Recorded Time 07/11/2024 text/html 84 y/o female here with cough, congestion and fevers for the past week, not improving. Has CHF, but symptoms are not similar to her usual flares ROSALIE Rivas [address] [place], [address], PA - [facility] 07/11/2024 15:26:55 07/22/2024 text/html 84 y/o female here to recheck after being treated for pna 10 days ago. She is having some mid back pain. Cough has resolved completely. Daughter is concerned that her temp has been up and down, between 99-100 ROSALIE Rivas [address] [place], [address], PA - [facility] 07/22/2024 15:12:25 OBGyn Episode No OBEpisode recorded.
--- OUTSIDE RECORDS SUMMARY | 2024-12-11 14:50 | XMS_ITS | Patient Health Record ---
Author Organization [facility] Zari chanel [place] Address [address] [place] [address] Care Team Providers Care Traffic And Transport Planner Name Role Phone Hitesh CRENSHAW [place] Primary Care Provider Unava ilable Patti Andrade Unavailable [phone] Allergies Allergen (clinical drug ingredient) Drug/Non Drug Allergy documented on EMR Reaction Allergy Type Onset Date Status sulfamethoxazole / trimethoprim Bactrim Unknown Drug Allergy Active ciprofloxacin Cipro Unknown Drug Allergy Act fortino Shrimp Flavor Unknown Drug Allergy Act fortino Reason For Referral Diagnosis 1 Pain in unspecified foot (M79.673) Referring Provider First Name Darrian Referring Provider Last Name [facility] Referred Provider Patti Andrade Referred Address [address] [place],[address], Referred Provider Specialty Podiatry Referral Priority Routine [...] Name Darrian Referring Provider Last Name Hitesh [facility] Referred Provider Patti Andrade Referred Address [address] [place], [place],[address], Referred Provider Specialty Podiatry Referral Priority Routine [...] Problem Acquired hammer toe of right foot (55973467464 43147) Other hammer toe(s) (acquired), right foot (M20.41) Active confirmed Problem Acquired hammer toe of left foot (42982662509 43581) Other hammer toe(s) (acquired), left foot (M20.42) Active confirmed Problem Atherosclerosis of [place] artery of both lower extremities, with unspecified presence of clinical manifestation (I70.203) Active confirmed Vital Signs Blood pressure diastolic 72 mm Hg 05/16/2024 Height 5 ft 2 in in 08/01/2024 Blood pressure systolic 122 mm Hg 05/16/2024 Weight 83 lbs 08/01/2024 BMI 15.18 kg/m2 08/01/2024 Encounters Encounter Location Date Provider Diagnosis [facility] [address] [place] [address] 12/18/2023 Patti Andrade Atherosclerosis of [place] artery of both lower extremities, with unspecified presence of clinical manifestation I70.203 ; Other hammer toe(s) (acquired), right foot M20.41 ; Tinea unguium B35.1 ; Pain in right toe(s) M79.674 ; Pain in left toe(s) M79.675 and Other hammer toe(s) (acquired), left foot M20.[address] [address] 03/04/2024 Patti Perica Atherosclerosis of [place] artery of both lower extremities, with unspecified presence of clinical manifestation I70.203 ; Tinea unguium B35.1 ; Pain in right toe(s) M79.674 and Pain in left toe(s) M79.[address] [address] 05/16/2024 Patti Perica Atherosclerosis of [place] artery of both lower extremities, with unspecified presence of clinical manifestation I70.203 ; Tinea unguium B35.1 ; Pain in right toe(s) M79.674 and Pain in left toe(s) M79.[address] [address] 08/01/2024 Patti Perica Atherosclerosis of [place] artery of both lower extremities, with unspecified presence of clinical manifestation I70.203 ; Tinea unguium B35.1 ; Pain in right toe(s) M79.674 and Pain in left toe(s) M79.[address] [address] 12/12/2023 Patti Perica [address] [address] 01/03/2024 Patti Perica [address] [address] 03/04/2024 Patti Andrade Assessments Encounter Date Diagnosis (ICD Code) Assessment Notes Treatment Notes Treatment Clinical Notes Section Notes 12/18/2023 Other hammer toe(s) (acquired), right foot (ICD-10 - M20.41) 12/18/2023 Atherosclerosis of [place] artery of both lower extremities, with unspecified presence of clinical manifestation (ICD-10 - I70.203) 03/04/2024 Tinea unguium (ICD-10 - B35.1) 03/04/2024 Atherosclerosis of [place] artery of both lower extremities, with unspecified presence of clinical manifestation (ICD-10 - I70.203) 05/16/2024 Tinea unguium (ICD-10 - B35.1) 05/16/2024 Atherosclerosis of ho-[place] artery of both lower extremities, with unspecified presence of clinical manifestation (ICD-10 - I70.203) 08/01/2024 Tinea unguium (ICD-10 - B35.1) 08/01/2024 Atherosclerosis of ho-chunk artery of both lower extremities, with unspecified [...] Provider Name:Patti ponce, 12/31/2024 02:00:00 PM, [address] [place], [address], Insurance Providers Payer Name Payer Address Payer Phone Subscriber Number Group Number Insured Name Patient Relationship to Insured Coverage Start Date Coverage End Date [facility] 65 Medicare Preferred [address] [place] [address] [phone] [id number] Sandra Herrera Self - patient is the insured Medical (General) History Medical History History ICD Code Cancer covid-19 Dementia Chicken pox thyroid congestive heart failure Surgical History Surgery Date(Month/Year) tubal ligation 1969 mastectomy 1998 torn knee ligament 1994 3 micro clips attached to mitral valve 1 Hospitalization History Reason Date(Month/Year[place] [facility] 05/01-05/04
--- OUTSIDE RECORDS SUMMARY | 2024-12-11 14:50 | XMS_ITS ---
[facility] Organization [facility] Address [address] [facility] [place] [address] Care Team Providers Care Slubber Operator Name Role Phone Hitesh CRENSHAW [place] Primary Care Provider Patti Arellano Unavailable [phone] Allergies Allergen (clinical drug ingredient) Drug/Non Drug [...] 08/01/2024 Encounters Encounter Location Date Provider Diagnosis [facility] [address] [place] [address] 08/01/2024 Patti Andrade Atherosclerosis of [place] artery of both lower extremities, with unspecified presence of clinical manifestation I70.203 ; Tinea unguium B35.1 ; Pain in right toe(s) M79.674 and Pain in left toe(s) M79.675 Assessments Encounter Date Diagnosis (ICD Code) Assessment Notes Treatment Notes Treatment Clinical Notes Section Notes 08/01/2024 Atherosclerosis of [place] artery of both lower extremities, with unspecified presence of clinical manifestation (ICD-10 - I70.203) 08/01/2024 Tinea unguium (ICD-10 - B35.1) 08/01/2024 Pain in right toe(s) (ICD-10 - M79.674) 08/01/2024 Pain in left toe(s) (ICD-10 - M79.675) Plan Of Treatment Next Appt Details Follow Up: 2 Months, Reason: Provider Name:Patti ponce, 12/31/2024 02:00:00 PM, [address] [place] [address], [address], Procedure Notes * Category Sub-Category Detail Notes [...] sterile 15 blade, tissue nippers, and/or power [employer]end[employer]sta instrumentation - 72331 Debride Nails 1-5 Procedure: Due to the [...] necessary to maintain effective symptomatic relief - 80311 Nail Reduction Nail Reduction Trimming of dyst rophic nails performed to reduce/remove overall nail length and girth, by manual and electrical means with use of a nail nipper and/or dremel, to more viable healthy nail plate or bed tissue 6-10 (V2039-A9) Progress Notes * Sandra HERRERA ADOB: [birth year] (84 yo F)Acc No.[id number]:08/01/2024 Progress Note Patient:?Sandra HERRERA Provider:?Patti Andrade DPM :1940???Age:84 Y???Sex:Female D ate:08/01/2024 Address:[address] [place] [address] Pcp:Darrian Proctor MD Subjective: * Chief Complaints: [...] mitral valve 06/16/2020 * Hospitalization/Major Diagno stic Procedure:?[facility] [place] [facility]- Right hand infection 05/01-05/04/24 * Family [...] gardening/yard work,glider. ?Marital status: single. ?Occupation: Retired- [employer] * Medications:?TakingEliquis 2 .5 MG Tablet as [...] Assessment: 1.?Tinea unguium - B35.1???2 .?Atherosclerosis of [place] artery of both lower extremities, with unspecified [...] necessary to maintain effective symptomatic relief - 97131.?Keratoma Treatment:?Parring or Cutting of Benign Hyperkeratotic Lesion(s)?(-56) [...] tissue nippers, and/or power dremel instrumentation - 39996.?Nail Reduction:?Nail Reduction?Trimming of dystrophic nails performed to reduce/remove overall nail length and girth, by manual and electrical means with use of a nail nipper and/or dremel, to more viable healthy nail plate or bed tissue 6-10 (G0127- Q8).? * Procedure Codes:?G0127 RENETTA ING DYSTROPHIC NAILS ANY #, Modifiers: XS , I553608 DEBRIDE NAIL, 1-5, Modifiers: XS 53652 TRIM SKIN LESIONS, 2 TO 4, Modifiers: XS , Q8 * Follow Up:?2 Months * Images: * Sign off status: Completed true * Provider:?Patti Andrade DPM Date:?01/2024 Generated for Bella interiano/Svetlana/Valerie on:?12/11/2024 02:49 PM EDT History and Physical [...]
== END 2024-12-11 11:53 | disposition home or self-care (01) ==
LOC: HO.HMGCLDS 11:52
PROVIDERS: PCP Internal Medicine; Visit Provider Internal Medicine
DX: E78.00 Pure hypercholesterolemia, unspecified (principal); I50.9 Heart failure, unspecified; D64.9 Anemia, unspecified; E03.9 Hypothyroidism, unspecified; R30.0 Dysuria
CPT/HCPCS: 36415; 80053; 80061; 81001; 83880; 84439; 84443; 85025; 87086

== ENCOUNTER 2024-12-16 10:42 | Outpatient (AMB) | payer MEDICARE, SELFPAY ==
[2024-12-16 10:52] VITALS: BP 102/64; BMI 14.5
--- NOTE | 2024-12-16 10:52 | MHC.PC.OV ---
Vital Signs 12/16/24 10:52 Height 5 ft 2 in Weight 79 lb 8 oz BMI 14.5 BP 102/64 Blood Pressure Location Lt brachial Position Sitting Pulse Source Pulse Oximeter Oxygen Delivery Method Room Air Intake Visit Reasons: [facility] 12/02 Lethargy Fire Hose Curer Required: No Accompanied by: Self / Same As Patient Allergies Sulfa (Sulfonamide Antibiotics) [Sulfa (Sulfonamides)] Allergy (Mild, Verified 12/16/24 11:21) RASH ciprofloxacin [Cipro] Allergy (Unknown, Verified 12/16/24 11:21) rash scallops Allergy (Unknown, Verified 12/16/24 11:21) Sick to the stomach Medication List - Last Reconciled 12/16/24 by Darrian Proctor MD apixaban (Eliquis) 2.5 mg PO BID 90 days cholecalciferol (vitamin D3) 25 mcg PO DAILY 90 days donepezil 10 mg PO BEDTIME furosemide 20 mg PO DAILY levothyroxine 75 mcg PO DAILY@0600 metoprolol succinate ER 100 mg PO DAILY 90 days vancomycin 125 mg PO Q6H 10 days vitamin B complex 1 tab PO DAILY Tobacco use date assessed: 12/16/24 Fall risk assessment: No Falls in past year Last assessed Fall Risk: 12/16/24 Dental Screening Dental Screen Date: 12/16/24 Did you have a dental visit in the last 12 months?: Yes Did you have a dental problem in the last 6 months where you did not have access to dental care?: No Was dental information given to patient?: Patient has dentist HPI [facility] 12/02 Lethargy HPI Details Patient comes in today for her [facility] follow up visit She was admitted to [facility] for a few days a couple of weeks ago after she was brought to the ER with altered mentation and poor oral intake Work ups done at the ER revealed (+) moderate hydronephrosis and left-sided pyelonephritis and JOLYNN with a serum creatinine of 2.48 at the time Patient was admitted and started on IV hydration and IV Abx (Ceftriaxone), with gradual improvement of her renal function as well as her mentation She was transitioned to oral Cefuroxime a few days later prior to her being discharged from the hospital Patient completed her oral Abx regimen last week and per her daughter, has been doing well since with no acute issues Her daughter states that her appetite has also improved significantly and she now finishes most of the food that she is provided per meal Patient states that she feels okay - is currently oriented x 2 and her cognition appears to be at her baseline level She denies any headaches or dizziness; no fever Denies any chest pains, no increased SOB No nausea/vomiting, no abdominal pain No change in bowel habits noted and she denies any acute urinary symptoms at present She needs a couple of her Rx refilled She had her follow up labs done last week and her daughter would like to know how her results came out TCM TCM Information Date of Discharge 12/02/24 Interactive Contact Date (Reference documentation from this date) 12/16/24 [facility] Medical History Mitral regurgitation Cataract of both eyes Anticoagulated on Coumadin Petechial rash Petechial rash Enlarged RV (right ventricle) Tricuspid regurgitation Alzheimer's disease Irritable bowel syndrome (IBS) Osteoporosis Chronic kidney disease (CKD), stage III (moderate) Pure hypercholesterolemia Hypothyroidism Chronic atrial fibrillation CHF due to valvular disease Surgical History Status post implantation of mitral valve leaflet clip (~06/16/20) Hx of tubal ligation Hx of left mastectomy Family History Father Hx of blood clots Mother Hx of blood clots Social History Household Members: Other Household Members Other:: Son Alex Housing: House Do you presently have visiting nurse or other home services: No Alcohol intake: never Patient Tobacco Use Status: Never used Tobacco e-Cigarette/Vaping Use: Never Used Second Hand Smoke Exposure: No Advance Directives Date on File: 08/11/22 service: No Current occupational status: retired Cognitive needs: No Hearing needs: No Vision needs: Yes Questionnaire PHQ-9 Over the last 2 weeks, how often have you been bothered by any of the following problems? 1. Little interest or pleasure in doing things: not at all 2. Feeling down, depressed, or hopeless: not at all 3. Trouble falling or staying asleep, or sleeping too much: not at all 4. Feeling tired or having little energy: several days 5. Poor appetite or overeating: not at all 6. Feeling bad about yourself - or that you are a failure or have let yourself or your family down: not at all 7. Trouble concentrating on things, such as reading the newspaper or watching television: several days 8. Moving or speaking so slowly that other people could have noticed. Or the opposite - being so fidgety or restless that you have been moving around a lot more than usual: not at all 9. Thoughts that you would be better off or of hurting yourself in some way: not at all Total score: 2 Depression Screening Interpretation: Negative Depression Screening Done: Yes 13531 - PHQ-9 Billing: Yes Source: Developed by Drs. Freedom Yung, Radha Herrera, Adi Anand and colleagues, with an educational alejandro from [employer]. Thrive Questionnaire Date Thrive assessed: 12/16/24 I am a: Patient What is your living situation today?: I have a steady place to live Within the past 12 months, did the food you bought not last and you didn't have the money to get more?: Never true Within the past 12 months, did you worry whether your food would run out before you got money to buy more?: Never true Do you have trouble paying for medicines?: No Do you have trouble getting transportation to medical appointments?: No Do you have trouble paying your heating and electricity bill?: No Do you have trouble taking care of your child, family member or friend?: No Do you have trouble with day-to-day activities such as bathing, preparing meals, shopping, managing finances, etc.?: No Are you currently unemployed and looking for a job?: No Are you interested in more education?: No Please select the resources that you would like help with: None Currently or been in a relationship where the following occur: No concerns reported THRIVE Score: 0 AUDIT C Alcohol Use Questionnaire (AUDIT-C) 1. How often do you have a drink containing alcohol?: Never 3. How often do you have six or more drinks on one occasion?: Never Total Score: 0 Score Reviewed/Action Taken: Yes ALTON-7 AMB Questionnaire ALTON-7 Date ALTON - 7 assessed: 12/16/24 Feeling nervous, anxious, or on edge: 0 = Not at all Not being able to stop or control worryin = Not at all Worrying too much about different things: 0 = Not at all Trouble relaxin = Not at all Being so restless that it is hard to sit still: 0 = Not at all Becoming easily annoyed or irritable: 0 = Not at all Feeling afraid as if something awful might happen: 0 = Not at all Total ALTON-7 score (0-4 normal; 5-9 mild; 10-14 moderate; 15-21 severe): 0 Source: Developed by Drs. Freedom Yung, Radha Herrera, Adi Anand and colleagues, with an educational alejandro from [employer]. Review of Systems Const Denies chills, Denies difficulty sleeping, Reports fatigue (improving), Denies fever(s), Denies headache(s) and Denies poor appetite ENT Denies dysphagia, Denies dizziness, Denies otalgia, Denies headache(s), Denies neck pain, Denies odynophagia and Denies sore throat Card Denies chest pain, Denies palpitations and Denies dyspnea Resp Denies chest congestion, Denies cough and Denies dyspnea GI Denies abdominal pain, Denies constipation, Denies dysphagia, Denies heartburn, Denies diarrhea, Denies nausea, Denies odynophagia and Denies vomiting Denies difficulty voiding, Denies nocturia, Denies dysuria and Denies urinary urgency Musc Denies back pain and Denies neck pain Skin/Breast Denies rash Neuro Denies confusion, Denies dizziness, Denies headache(s) and Reports memory loss (stable) Psych Denies confusion and Reports memory loss (stable) Endo Reports fatigue (improving) and Denies palpitations Physical exam (Primary Care) Vital Signs: Last Vital Signs BP 102/64 12/16/24 10:52 Oxygen Delivery Method Room Air 12/16/24 10:52 BMI result Body Mass Index 14.5 Tobacco/Smoking Status: Tobacco use Status Tobacco use date assessed 12/16/24 12/16/24 11:01 Patient Tobacco Use Status Never used Tobacco 12/16/24 11:01 e-Cigarette/Vaping Use Never Used 12/16/24 11:01 PHQ-9: PHQ-9 Score PHQ-9: Total score 2 12/16/24 11:01 Depression Screening Interpretation: Negative Thrive Assessment: Date of Thrive Assessment Date Thrive assessed 12/16/24 12/16/24 11:01 Currently or been in a relationship where the following occur: No concerns reported Const General: No confusion Orientation/consciousness: No confusion HENMT Ears: TM's normal bilaterally and EAC's normal Throat: Yes posterior oropharynx normal and Yes tonsils normal (no TP congestion noted) Neck Neck: Yes supple and No lymphadenopathy Thyroid: Thyroid normal Resp Auscultation: clear to auscultation bilaterally, no rales and no wheezes Cardio Rate: regular rate Rhythm: abnormal rhythm irregularly irregular Heart sounds: Murmur heart sound present systolic III/, at the apex and at the left sternal border GI Palpation (GI): Soft to palpation and nontender Auscultation: normal bowel sounds General: Yes no CVA tenderness Back/Spine/Pelvis Back: no CVA tenderness Skin Rashes: no rashes Neuro General: No confusion Extrem General: Yes no clubbing, cyanosis or edema Results Reviewed Results Reviewed: Laboratory Tests 12/11/24 12/11/24 12/11/24 09:00 12:00 12:08 WBC 7.3 Hgb 13.7 Hct 42.8 Plt Count 377 D Sodium 139 Potassium 4.2 Creatinine 1.06 Estimated GFR 49 Fasting Glucose 88 Calcium 9.4 D AST 41 H ALT 20 B-Natriuretic Peptide 697 H Triglycerides 86 Cholesterol 190 LDL Cholesterol, Calc 104 H HDL Cholesterol 69 TSH 4.35 H Free T4 1.39 Ur Specific [place] 1.020 Urine Protein 30 (1+) H Urine Glucose (UA) Negative Urine Blood Trace H Urine Nitrite Negative Ur Leukocyte Esterase Small (1+) H Coding Level of Care Code TCM Mod MDM <= 14 Days Diagnoses Pyelonephritis N12 Hydronephrosis, unspecified hydronephrosis type N13.30 Hydronephrosis type: unspecified Chronic atrial fibrillation I48.20 CHF due to valvular disease I50.9; I38 Nonrheumatic mitral valve regurgitation I34.0 Cardiac valve disease etiology: nonrheumatic Acquired hypothyroidism E03.9 Hypothyroidism type: acquired Pure hypercholesterolemia E78.00 Stage 3a chronic kidney disease N18.31 Chronic kidney disease stage 3 subtype: stage 3a (GFR 45-59) Age-related osteoporosis without current pathological fracture M81.0 Osteoporosis type: age-related Presence of current pathological fracture: without current pathological fracture Irritable bowel syndrome, unspecified type K58.9 Irritable bowel syndrome type: unspecified Elevated LFTs R79.89 Alzheimer's disease G30.9; F02.80 Additional Codes PHQ-9 - 29941 - PHQ-9 Billing: Yes ([id number]) Assessment & Plan Assessment & Plan (1) Pyelonephritis: Code(s): N12 - Tubulo-interstitial nephritis, not specified as acute or chronic Category: Medical Plan: S/P IV Ceftriaxone while in the hospital, followed by 1 week of oral Cefuroxime following her discharge from [facility] - patient completed her Abx Tx a few days ago, with no acute issues or symptoms at present (2) Hydronephrosis: Comment: moderate hydronephrosis of the left kidney Code(s): N13.30 - Unspecified hydronephrosis Category: Medical Qualifiers: Hydronephrosis type: unspecified Qualified Code(s): N13.30 - Unspecified hydronephrosis Plan: (+) moderate hydronephrosis of the left kidney seen on abdominal/pelvic CT done at [facility] a couple of weeks ago She is scheduled to see urology next month on 01/20/2025 for follow up and further management (3) Chronic atrial fibrillation: Code(s): I48.20 - Chronic atrial fibrillation, unspecified Category: Medical Plan: Patient currently remains rate-controlled on Metoprolol ER 100 mg QD (Rx refilled) Continue long-term anticoagulation with Apixaban 2.5 mg BID (4) CHF due to valvular disease: Code(s): I50.9 - Heart failure, unspecified; I38 - Endocarditis, valve unspecified Category: Medical Plan: Her symptoms have improved a lot since her MitraClip procedure back in May 2020 Reinforced fluid restriction Continue Furosemide 20 mg QD Echocardiogram done a few years ago (prior to her MitraClip procedure) showed ejection fraction to be between 60-65% but with severe mitral regurgitation, severe tricuspid regurgitation and biatrial enlargement Repeat echocardiogram done in July 2023 revealed normal left ventricular systolic function, with the visually estimated ejection fraction to be between 55-60%. There is severe biatrial enlargement and atrial septal defect with left to right shunt and gradient of 17mmHg. There is also mild to moderate mitral valve regurgitation. Mitraclip is in place. Mean gradient of 7mmHg at 70/min. There is moderate tricuspid valve regurgitation. Mild pulmonary hypertension is present Her most recent echocardiogram done last month (October 2024) revealed (+) low normal left ventricular systolic function, with the calculated ejection fraction at 54% by the biplane method. The right ventricular cavity size is severely increased, with severe biatrial enlargement and (+) atrial septal defect with [id number] shunting is noted by color doppler. There is mild to moderate mitral valve regurgitation, with a Mitraclip in place. There is severe tricuspid valve regurgitation as well, with severe pulmonary hypertension now present Follow up with cardiology as scheduled (5) Mitral regurgitation: Comment: Status post MitraClip Code(s): I34.0 - Nonrheumatic mitral (valve) insufficiency Category: Medical Qualifiers: Cardiac valve disease etiology: nonrheumatic Qualified Code(s): I34.0 - Nonrheumatic mitral (valve) insufficiency Plan: S/P MitraClip procedure at [facility] on 06/16/2020, followed by cardiac rehab, which patient states helped a lot Follow-up with cardiology as scheduled (6) Hypothyroidism: Code(s): E03.9 - Hypothyroidism, unspecified Category: Medical Qualifiers: Hypothyroidism type: acquired Qualified Code(s): E03.9 - Hypothyroidism, unspecified Plan: Patient's TFTs were normal on her labs done last week Continue Levothyroxine 75 mcg once a day - Rx refilled Will recheck her TFTs in 4 months for follow up (7) Pure hypercholesterolemia: Code(s): E78.00 - Pure hypercholesterolemia, unspecified Category: Medical Plan: Results of her labs done last week reviewed and discussed with patient - her cholesterol numbers are acceptable on her recent labs Reinforced low cholesterol diet Patient was on Simvastatin in the past but this was discontinued during her hospitalization earlier this year and she prefers not to go back on it if possible Will continue to monitor her fasting lipid profile and labs regularly -? will recheck her labs and fasting lipids in 4 months for follow-up (8) Chronic kidney disease (CKD), stage III (moderate): Code(s): N18.30 - Chronic kidney disease, stage 3 unspecified Category: Medical Qualifiers: Chronic kidney disease stage 3 subtype: stage 3a (GFR 45-59) Qualified Code(s): N18.31 - Chronic kidney disease, stage 3a Plan: Stable -? patient did suffer JOLYNN with her recent hospital admission but her renal function appears to have recovered on her recent labs Will continue to monitor her renal function regularly (9) Osteoporosis: Code(s): M81.0 - Age-related osteoporosis without current pathological fracture Category: Medical Qualifiers: Osteoporosis type: age-related Presence of current pathological fracture: without current pathological fracture Qualified Code(s): M81.0 - Age-related osteoporosis without current pathological fracture Plan: Her repeat BMD back in July 2016 showed a -16% decline in BMD compared to her numbers in 2013 Patient was referred to and seen by Endocrinology recently and recommended starting on Prolia but patient decided against taking any Rx due to their potential side effects Continue Caltrate 600+ D tablet chewable, 600-400 mg - unit 1 tablet twice a day Her most recent BMD done in 01/2021 revealed (+) osteoporosis based on the lowest T-score value of -3.2 in the lumbar spine Her BMD here in both the AP spine and femur have declined by 10% or more from her previous BMD In 2016 Follow-up with endocrinology as scheduled (10) Irritable bowel syndrome (IBS): Code(s): K58.9 - Irritable bowel syndrome, unspecified Category: Medical Qualifiers: Irritable bowel syndrome type: unspecified Qualified Code(s): K58.9 - Irritable bowel syndrome without diarrhea Plan: Patient has been taking Align (as recommended by Dr. Tolliver) and states that the medication helps a lot States that Dr. Tolliver recommended no further intervention -? last colonoscopy in 2008 was normal Follow up with GI (Dr. Tolliver)? as scheduled (11) Elevated LFTs: Code(s): R79.89 - Other specified abnormal findings of blood chemistry Category: Medical Plan: Patient's serum AST was again slightly elevated on her recent labs; ALT was normal She currently denies any acute GI symptoms Will just continue to monitor her LFTs for now and if her LFT elevation persists or gets worse, will consider sending her for abdominal US for further evaluation Patient is advised to call PAD[facility]I if she starts experiencing any unusual and persistent GI symptoms at any time (12) Alzheimer's disease: Code(s): G30.9 - Alzheimer's disease, unspecified; F02.80 - Dementia in other diseases classified elsewhere, unspecified severity, without behavioral disturbance, psychotic disturbance, mood disturbance, and anxiety Category: Medical Plan: Continue Donepezil 10 mg once a day at bedtime Follow-up with Neurology as scheduled Plan Follow up as scheduled in March 2025 Medications: Changed From levothyroxine 75 mcg PO DAILY@0600 To levothyroxine 75 mcg PO DAILY@0600 90 days 90 tabs 3RF Refilled metoprolol succinate ER 100 mg PO DAILY 90 days 90 tabs 3RF I48.20 - Chronic atrial fibrillation, unspecified
--- OUTSIDE RECORDS SUMMARY | 2024-12-16 12:45 | XMS_ITS ---
[facility] Address [address] [place] [address] Care Team Providers Care Director Statistical Programming Name Role Phone Hitesh CRENSHAW [place] Primary Care Provider Patti Arellano Unavailable [phone] Allergies Allergen (clinical drug ingredient) Drug/Non Drug [...] 08/01/2024 Encounters Encounter Location Date Provider Diagnosis [facility] [address] [place] [address] 08/01/2024 Patti Andrade Atherosclerosis of atka artery of both lower extremities, with unspecified presence of clinical manifestation I70.203 ; Tinea unguium B35.1 ; Pain in right toe(s) M79.674 and Pain in left toe(s) M79.675 Assessments Encounter Date Diagnosis (ICD Code) Assessment Notes Treatment Notes Treatment Clinical Notes Section Notes 08/01/2024 Atherosclerosis of atka artery of both lower extremities, with unspecified presence of clinical manifestation (ICD-10 - I70.203) 08/01/2024 Tinea unguium (ICD-10 - B35.1) 08/01/2024 Pain in right toe(s) (ICD-10 - M79.674) 08/01/2024 Pain in left toe(s) (ICD-10 - M79.675) Plan Of Treatment Next Appt Details Follow Up: 2 Months, Reason: Provider Name:Patti ponce, 12/31/2024 02:00:00 PM, [address] [place] [address], [phone], Procedure Notes * Category Sub-Category Detail Notes [...] sterile 15 blade, tissue nippers, and/or power [employer] instrumentation - 74473 Debride Nails 1-5 Procedure: Due to the [...] necessary to maintain effective symptomatic relief - 57770 Nail Reduction Nail Reduction Trimming of dyst rophic nails performed to reduce/remove overall nail length and girth, by manual and electrical means with use of a nail nipper and/or dremel, to more viable healthy nail plate or bed tissue 6-10 (I0353-F8) Progress Notes * Sandra HERRERA ADOB: [birth year] (84 yo F)Acc No.[id number]:08/01/2024 Progress Note Patient:?Sandra HERRERA Provider:?Patti Andrade DPM :[id number]???Age:84 Y???Sex:Female D ate:08/01/2024 Address:[address] [place] [address] Pcp:Darrian Proctor MD Subjective: * Chief Complaints: [...] 06/16/2020 * Hospitalization/Major Diagno stic Procedure:[place] Right hand infection 05/01-05/04/24 * Family [...] gardening/yard work,glider. ?Marital status: single. ?Occupation: Retired- [employer] at the [employer]. * Medications:?TakingEliquis 2 .5 MG [...] Assessment: 1.?Tinea unguium - B35.1???2 .?Atherosclerosis of atka artery of both lower extremities, with unspecified [...] necessary to maintain effective symptomatic relief - 62319.?Keratoma Treatment:?Parring or Cutting of Benign Hyperkeratotic Lesion(s)?(-56) [...] tissue nippers, and/or power dremel instrumentation - 56945.?Nail Reduction:?Nail Reduction?Trimming of dystrophic nails performed to reduce/remove overall nail length and girth, by manual and electrical means with use of a nail nipper and/or dremel, to more viable healthy nail plate or bed tissue 6-10 (G0127- Q8).? * Procedure Codes:?G0127 RENETTA ING DYSTROPHIC NAILS ANY #, Modifiers: XS , [id number] DEBRIDE NAIL, 1-5, Modifiers: XS 08458 TRIM SKIN LESIONS, 2 TO 4, Modifiers: XS , Q8 * Follow Up:?2 Months * Images: * Sign off status: Completed true * Provider:?Patti Andrade DPM Date:?01/2024 Generated for Bella interiaon/Svetlana/Valerie on:?12/16/2024 12:44 PM EDT History and Physical Notes * [...]
--- OUTSIDE RECORDS SUMMARY | 2024-12-16 12:45 | XMS_ITS | Data Portability ---
Author Organization ROSALIE Dickson s [address] Address [address] [place] [address] Assessment No assessment recorded. Plan of Treatment Reminders Order Date Submit Date Provider Last Modified By Organization Details Last Modified Time Details Appointments None recorded. Lab urinalysis, dipstick 2023 [facility] [address] [facility] [address] [place], [address], 4 15:12:11 rapid flu (A+B) 2023 ik6 [facility], [address] [place], [address], 4 15:21:36 SARS CoV 2 (COVID-19) Ag, QL, IA, upper respiratory specimen 2023 [facility], [address] [place], [address], 4 15:21:36 Referral None recorded. Procedures None recorded. Surgeries None recorded. Imaging None recorded. Medication Orders amoxicillin 875 mg-potassiu m clavulanate 125 mg tablet [address] [facility] [address] [facility], [address] [place] [address], [address], 4 14:55:34 albuterol sulfate HFA 90 mcg/actuati on aerosol inhaler 2023 [facility], [address] [place] [address], [address], 15:21:39 azithromyci n 250 mg tablet 2023 024 [email or web address] [facility], [address] [place] [address], [address], 14:55:41 Patient TargetsNo targets recorded. Patient Instructions Encounter Date Encounter Id Patient Instructions Last Modified By Organization Details Last Modified Time 07/11/2024 [id number] pneumonia: care instructions [email or web address] Not available 07/11/2024 15:21:36 Reason for Referral None Reported. Results Created Date Observation Date Name Description Value Unit Range Abnormal Flag Note LastModifiedBy Organization Detail LastModifiedTime 07/11/2007/11/2024 SARS CoV 2 (COVI D-19) Ag, QL, IA, upper respi rator y speci men Unknown Analyte negati ve Not Available betsy ngo [address] [place], [address], 07/11/2024 14:46:48 07/11/20 24 07/11/2024 SARS CoV 2 (COVI D-19) Ag, QL, IA, upper respi rator y speci men Unknown Analyte yes Not Available arely [address] [place], [address], 07/11/2024 14:46:48 07/11/2007/11/2024 rapid flu (A+B) Unknown Analyte negati ve Not Available 2099betsy ngo [address] [place], [address], 07/11/2024 14:46:41 07/11/2007/11/2024 rapid flu (A+B) Unknown Analyte negati ve Not Available betsy ngo [address] [place], [address], 07/11/2024 14:46:41 11/26/07/22/2024 urina lysis , dipst ick Unknown Analyte Yellow Not Available _ arely [address] [place], [address], 07/22/2024 14:55:12 07/22/2007/22/2024 urina lysis , dipst ick Unknown Analyte Clear Not Available arely [address] [place], [address], 07/22/2024 14:55:12 07/22/2007/22/2024 urina lysis , dipst ick Unknown Analyte Negati ve Not Available betsy ngo [address] [place], [address], 07/22/2024 14:55:12 07/22/2007/22/2024 urina lysis , dipst ick Unknown Analyte Negati ve Not Available betsy ngo [address], [address], 07/22/2024 14:55:12 07/22/2007/22/2024 urina lysis , dipst ick Unknown Analyte Negati ve Not Available betsy ngo [address], [address], 07/22/2024 14:55:12 07/22/2007/22/2024 urina lysis , dipst ick Unknown Analyte 1.025 Not Available arely [address], [address], 07/22/2024 14:55:12 07/22/2007/22/2024 urina lysis , dipst ick Unknown Analyte Trace- intact Not Available betsy ngo [address], [address], 07/22/2024 14:55:12 07/22/2007/22/2024 urina lysis , dipst ick Unknown Analyte 5.5 Not Available 2099Khurram_ arely [address], [address], 07/22/2024 14:55:12 07/22/2007/22/2024 urina lysis , dipst ick Unknown Analyte 30 mg/dL Not Available _betsy ngo [address], [address], 07/22/2024 14:55:12 07/22/2007/22/2024 urina lysis , dipst ick Unknown Analyte 0.2 E.U./d L Not Available _betsy ngo [address], [address], 07/22/2024 14:55:12 07/22/2007/22/2024 urina lysis , dipst ick Unknown Analyte Negati ve Not Available 2099tori ngo [address], [address], 07/22/2024 14:55:12 07/22/2007/22/2024 urina lysis , dipst ick Unknown Analyte Trace Not Available _ arely [address], [address], 07/22/2024 14:55:12 Result Notes None recorded. Problems Name Problem SNOMED Code Status Onset Date Resolution Date Notes Provider Name and Address Organization Details Recorded Time Congestive heart failure 81347431 Active 024 Sandra Dariusz null, [place] - [facility] 14:45:47 Problem Notes None recorded. Medical Equipment None Reported. Allergies Allergen ID Allergen Name Allergen Category Reaction Reaction Severity Criticality Documentation Date Start Date Code Code System Note Provider Name and Address Organization Details Recorded Time 7074420 Cipro medicatio n Not available Not available Not available 07/11/202499638 3 RxNorm Sandra Dariusz null, PA - [facility] 4 14:43:17 5188620 scallop allergeni c extract food Not available Not available Not available 07/11/2024 81785 6 RxNorm Sandra Arzola angelo [facility] 4 14:43:30 8420151 Substance with sulfonami de structure and antibacte rial mechanism of action (substanc e) medicatio n Not available Not available Not available 07/11/2024 40054 8003 SNOMED Sandra Arzola angelo [facility] 4 14:43:34 Medications [...] Last Updated DateTime 157.48 cm 15 kg/m2 07920.5 7 g 0 68 /min 18 /min 100 % 100 % 99 [degF] 134 mm[Hg] 84 mm[Hg] Sandra Arzola PA - [facility] 14:49:58 Date Recorded Body height Body mass index (BMI) Body weight Respiratory rate Body temperature Oxygen saturation Oxygen saturation in Arterial blood by Pulse oximetry Heart rate Systolic blood pressure Diastolic blood pressure Provider Name and Address Organization Details Last Updated DateTime 157.48 cm 15.2 kg/m2 04920.1 7 g 18 /min 97.5 [degF] 97 % 97 % 54 /min 139 mm[Hg] 70 mm[Hg] Melvi Cooley [place] - [facility] 14:52:35 Social History Question Answer Notes LastModified by JammcardizeBuilder ion Details LastModified Time Tobacco Smoking Status Never Smoker Sandra stephens 24 Quan - [facility] 07/11/2024 14:46:17 What Is [...] SNOMED-CT Code Diagnosis ICD10 Code Diagnosis Note [id number] 2[address] [address] 02/17/2020 11:10:35 02/17/2020 12:53:51 [id number] [address] [address] 07/07/2016 09:49:52 07/07/2016 11:21:58 [id number] ROSALIE Rivas [address] [address] [place] [address] 07/11/2024 14:37:21 07/11/2024 15:28:24 Community acquired pneumonia 895662005 J18.9 Treatment is antibiotic s as prescribed [...] recommende d to verify pneumonia has resolved. [id number] ROSALIE Rivas [address] [place] [address] 07/22/2024 14:39:53 07/22/2024 15:18:16 Mild dehydration 2679196306 108 E86.0 DEHYDRATIO N- Dehydratio n happens [...] Cosme Member ID Guarantor Name 02/17/2020 1 [facility] (MEDICARE REPLACEMENT HMO) [id number] Sandra Herrera [id number] Sandra Herrera 07/11/2024 1 [facility] (MEDICARE REPLACEMENT HMO) [id number] Sandra Herrera [id number] Sandra Herrera 07/22/2024 1 [facility] (MEDICARE REPLACEMENT HMO) [id number] Sandra Herrera [id number] Sandra Herrera Notes Date Note Type Note Provider Name and Address Organization Details Recorded Time 07/11/2024 text/html 84 y/o female here with cough, congestion and fevers for the past week, not improving. Has CHF, but symptoms are not similar to her usual flares ROSALIE Rivas [address] [place], [address], PA - [facility] 07/11/2024 15:26:55 07/22/2024 text/html 84 y/o female here to recheck after being treated for pna 10 days ago. She is having some mid back pain. Cough has resolved completely. Daughter is concerned that her temp has been up and down, between 99-100 ROSALIE Rivas [address] [place], [address], PA - [facility] 07/22/2024 15:12:25 OBGyn Episode No OBEpisode recorded.
--- OUTSIDE RECORDS SUMMARY | 2024-12-16 12:45 | XMS_ITS | Patient Health Record ---
Author Organization [facility] Zari chanel [place] Address [address] [place] [address] Care Team Providers Care Salesperson Hosiery Name Role Phone Darrian Proctor MD Primary Care Provider UnaPatti Knapp Unavailable [phone] Allergies Allergen (clinical drug ingredient) Drug/Non Drug Allergy documented on EMR Reaction Allergy Type Onset Date Status sulfamethoxazole / trimethoprim Bactrim Unknown Drug Allergy Active ciprofloxacin Cipro Unknown Drug Allergy Act fortino Shrimp Flavor Unknown Drug Allergy Act fortino Reason For Referral Diagnosis 1 Atherosclerosis of n ative artery [...] Referring Provider Last Name Hitesh [facility] Referred Provider Patti Andrade Referred Address [address] [facility],[place], [place],[address], Referred Provider Specialty Podiatry Referral Priority Routine [...] Problem Acquired hammer toe of right foot (1028359735974331) Other hammer toe(s) (acquired), right foot (M20.41) Active confirmed Problem Acquired hammer toe of left foot (4169576555564391) Other hammer toe(s) (acquired), left foot (M20.42) Active confirmed Problem Bilateral atherosclerosis of arteries of lower limbs (disorder) (28253922085851955 ) Atherosclerosis of [place] artery of both lower extremities, with unspecified presence of clinical manifestation (I70.203) Active confirmed Vital Signs Blood pressure diastolic 72 mm Hg 05/16/2024 Height 5 ft 2 in in 08/01/2024 Blood pressure systolic 122 mm Hg 05/16/2024 Weight 83 lbs 08/01/2024 BMI 15.18 kg/m2 08/01/2024 Encounters Encounter Location Date Provider Diagnosis [address] [address] 12/18/2023 Patti Andrade Atherosclerosis of [place] artery of both lower extremities, with unspecified presence of clinical manifestation I70.203 ; Other hammer toe(s) (acquired), right foot M20.41 ; Tinea unguium B35.1 ; Pain in right toe(s) M79.674 ; Pain in left toe(s) M79.675 and Other hammer toe(s) (acquired), left foot M20.[facility] [address] 03/04/2024 Patti Perickris Atherosclerosis of [place] artery of both lower extremities, with unspecified presence of clinical manifestation I70.203 ; Tinea unguium B35.1 ; Pain in right toe(s) M79.674 and Pain in left toe(s) M79.[address] [address] 05/16/2024 Patti Perica Atherosclerosis of [place] artery of both lower extremities, with unspecified presence of clinical manifestation I70.203 ; Tinea unguium B35.1 ; Pain in right toe(s) M79.674 and Pain in left toe(s) M79.[address] [address] 08/01/2024 Patti Perica Atherosclerosis of [place] artery of both lower extremities, with unspecified presence of clinical manifestation I70.203 ; Tinea unguium B35.1 ; Pain in right toe(s) M79.674 and Pain in left toe(s) M79.[address] [address] 01/03/2024 Patti Perica [address] [address] 03/04/2024 Patti Andrade Assessments Encounter Date Diagnosis (ICD Code) Assessment Notes Treatment Notes Treatment Clinical Notes Section Notes 12/18/2023 Other hammer toe(s) (acquired), right foot (ICD-10 - M20.41) 12/18/2023 Atherosclerosis of [place] artery of both lower extremities, with unspecified presence of clinical manifestation (ICD-10 - I70.203) 03/04/2024 Tinea unguium (ICD-10 - B35.1) 03/04/2024 Atherosclerosis of [place] artery of both lower extremities, with unspecified presence of clinical manifestation (ICD-10 - I70.203) 05/16/2024 Tinea unguium (ICD-10 - B35.1) 05/16/2024 Atherosclerosis of [place] artery of both lower extremities, with unspecified presence of clinical manifestation (ICD-10 - I70.203) 08/01/2024 Tinea unguium (ICD-10 - B35.1) 08/01/2024 Atherosclerosis of [place] artery of both lower extremities, with unspecified [...] Provider Name:Patti ponce, 12/31/2024 02:00:00 PM, [address] [facility], [place], [address], Insurance Providers Payer Name Payer Address Payer Phone Subscriber Number Group Number Insured Name Patient Relationship to Insured Coverage Start Date Coverage End Date [facility] 65 Medicare Preferred [address] [place] [address] [phone] [id number] Sandra Herrera Self - patient is the insured Medical (General) History Medical History History ICD Code Cancer covid-19 Dementia Chicken pox thyroid congestive heart failure Surgical History Surgery Date(Month/Year) tubal ligation 1970 mastectomy 1998 torn knee ligament 1994 3 micro clips attached to mitral valve 1 Hospitalization History Reason Date(Month/Year) [facility] [place] Right [place] infection 05/01-05/04
--- OUTSIDE RECORDS SUMMARY | 2024-12-16 12:45 | XMS_ITS ---
Author Organization [facility] Address [address] [facility] [place] [address] Care Team Providers Care Buckle Coverer Name Role Phone Hitesh CRENSHAW Guffey Primary Care Provider Patti Arellano Unavailable [phone] Allergies Allergen (clinical drug ingredient) Drug/Non Drug [...] 024 Encounters Encounter Location Date Provider Diagnosis [facility] [place] [address] [place] [address] 05/16/2024 Patti Andrade Atherosclerosis of [place] artery of both lower extremities, with unspecified presence of clinical manifestation I70.203 ; Tinea unguium B35.1 ; Pain in right toe(s) M79.674 and Pain in left toe(s) M79.675 Assessments Encounter Date Diagnosis (ICD Code) Assessment Notes Treatment Notes Treatment Clinical Notes Section Notes 05/16/2024 Atherosclerosis of [place] artery of both lower extremities, with unspecified presence of clinical manifestation (ICD-10 - I70.203) 05/16/2024 Tinea unguium (ICD-10 - B35.1) 05/16/2024 Pain in right toe(s) (ICD-10 - M79.674) 05/16/2024 Pain in left toe(s) (ICD-10 - M79.675) Plan Of Treatment Next Appt Details Follow Up: 2 Months, Reason: Provider Name:Patti ponce, 12/31/2024 02:00:00 PM, [address] [place] [address], [address], Procedure Notes * Category Sub-Category Detail Notes [...] as necessary. Patient chooses, no pharmaceutical tx (35143) Nail Reduction Nail Reduction Trimming of dyst rophic nails performed to reduce/remove overall nail length and girth, by manual and electrical means with use of a nail nipper and/or dremel, to more viable healthy nail plate or bed tissue 6-10 (V0420-R2) Progress Notes * Sandra HERRERA ADOB: 9 (84 yo F)Acc No.[id number]:05/16/2024 Progress Note Patient:?Sandra Herrera Provider:?Patti Andrade DPM :1940???Age:84 Y???Sex:Female D ate:05/16/2024 Address:[address], [place] Pcp:Darrian Proctor MD Subjective: * Chief Complaints: [...] History:?tubal liga tion 1970mastectomy 1999torn knee ligament 65171 micro clips attached to mitral valve 06/16/2020 * Hospitalization/Major Diagno stic Procedure:[place] infection 05/01-05/04/24 * Family History:?Mother: dece ased.?Father: .? * Social History:?Tobacco Use:?Tobacco Use/Smoking?Are you a:?nonsmoker ?Additional Findings: Tobacco Non-User?Current non-smoker ?Tobacco use other than smoking?Are you an other tobacco user??No ???Miscellaneous:?no Caffeine. ?Children: yes, 8. ?Exercise: yes, walking, housework, gardening/yard work,glider. ?Marital status: single. ?Occupation: Retired- [employer] at the [employer]. * Medications:?TakingEliquis 2 .5 MG Tablet [...] Assessment: 1.?Tinea unguium - B35.1?2.? Atherosclerosis of [place] artery of both lower extremities, with unspecified [...] as necessary. Patient chooses, no pharmaceutical tx (55147).?Nail Reduction:?Nail Reduction?Trimming of dystrophic nails performed to reduce/remove overall nail length and girth, by manual and electrical means with use of a nail nipper and/or dremel, to more viable healthy nail plate or bed tissue 6-10 (G0127- Q8).? * Procedure Codes:?G0127 RENETTA ING DYSTROPHIC NAILS ANY #, Modifiers: XS , [id number] DEBRIDE NAIL, 1-5, Modifiers: XS * Follow Up:?2 Months * Images: * Sign off status: Completed true * Provider:Denisa Andrade, DPM Date:? Generated for Printi laisha/Sumig/eTransmitting on:?12/16/2024 12:44 PM EDT History and Physical [...]
--- OUTSIDE RECORDS SUMMARY | 2024-12-16 12:45 | XMS_ITS ---
Author Organization [facility] Address [address] [place] [address] Care Team Providers Care Java Scala Developer Name Role Phone Hitesh CRENSHAW [place] Primary Care Provider Patti Arellano Unavailable [phone] Allergies Allergen (clinical drug ingredient) Drug/Non Drug [...] Active Encounters Encounter Location Date Provider Diagnosis [facility] [address] [place] [address] 10/17/2024 Patti Andrade Plan Of Treatment Next Appt Details Provider Name:Patti ponce, 12/31/2024 02:00:00 PM, [address] [place], [address], Progress Notes * Sandra HERRERA ADOB: [birth year] (84 yo F)Acc No.[id number]:10/17/2024 Progress Note Patient:?Sandra HERRERA Provider:?Patti Andrade DPM :1940???Age:84 Y???Sex:Female D ate:10/17/2024 Address:[address] [place] [address] [place] Pcp:Darrian Proctor MD Subjective: * Chief Complaints: [...] Andrade DPM Date:? Generated for Bella interiano/Svetlana/Ozitting on:?12/16/2024 12:44 PM EDT
== END 2024-12-16 11:33 | disposition home or self-care (01) ==
LOC: HO.HMCH 10:43
PROVIDERS: PCP Internal Medicine; Visit Provider Internal Medicine
DX: I48.20 Chronic atrial fibrillation, unspecified (principal); G30.9 Alzheimer's disease, unspecified; I50.9 Heart failure, unspecified; F02.80 Dementia in other diseases classified elsewhere, unspecified severity, without behavioral disturbance, psychotic disturbance, mood disturbance, and anxiety; N18.31 Chronic kidney disease, stage 3a; N12 Tubulo-interstitial nephritis, not specified as acute or chronic; N13.30 Unspecified hydronephrosis; I38 Endocarditis, valve unspecified; I34.0 Nonrheumatic mitral (valve) insufficiency; E03.9 Hypothyroidism, unspecified; E78.00 Pure hypercholesterolemia, unspecified; M81.0 Age-related osteoporosis without current pathological fracture

== ENCOUNTER → 2024-12-16 10:42 | Outpatient (BNVA) | payer MEDICARE, SELFPAY | PROVIDERS: PCP Internal Medicine; Visit Provider Internal Medicine | DX: N12 Tubulo-interstitial nephritis, not specified as acute or chronic (principal); N13.30 Unspecified hydronephrosis; I48.20 Chronic atrial fibrillation, unspecified; I50.9 Heart failure, unspecified; I38 Endocarditis, valve unspecified; I34.0 Nonrheumatic mitral (valve) insufficiency; E03.9 Hypothyroidism, unspecified; E78.00 Pure hypercholesterolemia, unspecified; N18.31 Chronic kidney disease, stage 3a; N81.0 Urethrocele; K58.9 Irritable bowel syndrome, unspecified; R79.89 Other specified abnormal findings of blood chemistry; G30.9 Alzheimer's disease, unspecified; F02.80 Dementia in other diseases classified elsewhere, unspecified severity, without behavioral disturbance, psychotic disturbance, mood disturbance, and anxiety | CPT/HCPCS: 96127; 99495 ==

== ENCOUNTER 2025-01-20 12:32 | Outpatient (AMB) | payer MEDICARE, SELFPAY ==
--- OUTSIDE RECORDS SUMMARY | 2025-01-20 12:37 | XMS_ITS ---
Author Organization [facility] Address [address] [facility] [place] [address] Care Team Providers Care Wheel Loader Operator Name Role Phone Hitesh CRENSHAW [place] Primary Care Provider Patti Arellano Unavailable [phone] Allergies Allergen (clinical drug ingredient) Drug/Non Drug [...] 08/01/2024 Encounters Encounter Location Date Provider Diagnosis [facility] [place] [address] [place] [address] 08/01/2024 Patti Andrade Atherosclerosis of hughes artery of both lower extremities, with unspecified presence of clinical manifestation I70.203 ; Tinea unguium B35.1 ; Pain in right toe(s) M79.674 and Pain in left toe(s) M79.675 Assessments Encounter Date Diagnosis (ICD Code) Assessment Notes Treatment Notes Treatment Clinical Notes Section Notes 08/01/2024 Atherosclerosis of hughes artery of both lower extremities, with unspecified presence of clinical manifestation (ICD-10 - I70.203) 08/01/2024 Tinea unguium (ICD-10 - B35.1) 08/01/2024 Pain in right toe(s) (ICD-10 - M79.674) 08/01/2024 Pain in left toe(s) (ICD-10 - M79.675) Plan Of Treatment Next Appt Details Follow Up: 2 Months, Reason: Provider Name:Patti ponce, 04/01/2025 09:30:00 AM, [address] [place] [address], [address], Procedure Notes * Category Sub-Category Detail Notes [...] sterile 15 blade, tissue nippers, and/or power [employer] instrumentation - 26489 Debride Nails 1-5 Procedure: Due to the [...] necessary to maintain effective symptomatic relief - 55135 Nail Reduction Nail Reduction Trimming of dyst rophic nails performed to reduce/remove overall nail length and girth, by manual and electrical means with use of a nail nipper and/or dremel, to more viable healthy nail plate or bed tissue 6-10 (V1111-H1) Progress Notes * Sandra HERRERA ADOB: [birth year] (84 yo F)Acc No.[id number]:08/01/2024 Progress Note Patient:?Sandra HERRERA Provider:?Patti Andrade DPM :1940???Age:84 Y???Sex:Female D ate:08/01/2024 Address:[address] [place] [address] Pcp:Darrian Proctor MD Subjective: * Chief Complaints: [...] mitral valve 06/16/2020 * Hospitalization/Major Diagno stic Procedure:?[facility] [place]- Right hand infection 05/01-05/04/24 * Family [...] ?Marital status: single. ?Occupation: Retired- [employer] at the [employer]. * Medications:?TakingEliquis 2 .5 MG Tablet [...] Assessment: 1.?Tinea unguium - B35.1???2 .?Atherosclerosis of hug[place] artery of both lower extremities, with unspecified [...] necessary to maintain effective symptomatic relief - 72361.?Keratoma Treatment:?Parring or Cutting of Benign Hyperkeratotic Lesion(s)?(-56) [...] tissue nippers, and/or power dremel instrumentation - 36329.?Nail Reduction:?Nail Reduction?Trimming of dystrophic nails performed to reduce/remove overall nail length and girth, by manual and electrical means with use of a nail nipper and/or dremel, to more viable healthy nail plate or bed tissue 6-10 (G0127- Q8).? * Procedure Codes:?G0127 RENETTA ING DYSTROPHIC NAILS ANY #, Modifiers: XS , [id number] DEBRIDE NAIL, 1-5, Modifiers: XS 88161 TRIM SKIN LESIONS, 2 TO 4, Modifiers: XS , Q8 * Follow Up:?2 Months * Images: * Sign off status: Completed true * Provider:?Patti Andrade DPM Date:?01/2024 Generated for Bella interiano/Svetlana/Valerie on:?01/20/2025 12:37 PM EDT History and Physical Notes * [...]
--- NOTE | 2025-01-20 13:10 | A.OFFVIS_ITS ---
Intake Visit Reasons: pyelonephrosis/[facility] follow up Intake Note: Patient presents today for a follow up/pyelonephrosis/[facility] Urology Medication:Vitamin B Blood Thinner:Apixaban Antibiotic Allergies:sulfa,ciprofloxacin Allergies Sulfa (Sulfonamide Antibiotics) [Sulfa (Sulfonamides)] Allergy (Mild, Verified 01/20/25 13:12) RASH ciprofloxacin [Cipro] Allergy (Unknown, Verified 01/20/25 13:12) rash scallops Allergy (Unknown, Verified 01/20/25 13:12) Sick to the stomach HPI Comments Details: Sandra is a very pleasant female. Accompanied by her daughter. She is a patient of Dr. Proctor. She is seen for the following urologic conditions - urinary tract infection Significant urinary tract infection in hospital Creatinine resolved from 2.3 to 1.0 which is baseline Urine growth negative in prior visit Baseline dementia, CKD 3, malnutrition with BMI reported at 15 Brought into hospital by daughter. Relays episode of nausea with emesis. Noted her mother to be sleepy and lethargic over past few days with low p.o. intake Creatinine found to be 2.3 significantly above baseline WBC elevated UA normal Imaging - Moderate hydronephrosis of the left kidney. Severe infiltration of left-sided perinephric fat. Consider pyelonephritis. The degree of infiltration within the retroperitoneum also raises the possibility of urine extravasation or hemorrhage of uncertain source. Encourage vitamin-C and cranberry capsules PFSH Medical History Mitral regurgitation Cataract of both eyes Anticoagulated on Coumadin Petechial rash Petechial rash Enlarged RV (right ventricle) Tricuspid regurgitation Alzheimer's disease Irritable bowel syndrome (IBS) Osteoporosis Chronic kidney disease (CKD), stage III (moderate) Pure hypercholesterolemia Hypothyroidism Chronic atrial fibrillation CHF due to valvular disease Surgical History Status post implantation of mitral valve leaflet clip (~06/16/20) Hx of tubal ligation Hx of left mastectomy Family History Father Hx of blood clots Mother Hx of blood clots Social History Household Members: Other Household Members Other:: Son Alex Housing: House Do you presently have visiting nurse or other home services: No Alcohol intake: never Patient Tobacco Use Status: Never used Tobacco e-Cigarette/Vaping Use: Never Used Second Hand Smoke Exposure: No Advance Directives Date on File: 08/11/22 service: No Current occupational status: retired Cognitive needs: No Hearing needs: No Vision needs: Yes Review of Systems Const Denies chills and Denies fever(s) Card Reports no additional complaints and Denies syncope Resp Denies cough GI Denies abdominal pain and Denies heartburn Reports as per HPI and Denies change in libido Neuro Denies syncope Psych Denies change in libido Endo Denies change in libido Physical Exam Const General: cooperative, healthy appearing, comfortable and no acute distress Orientation/consciousness: patient oriented x3 HEENT Face and sinus: Yes normal facial exam Mouth: moist mucous membranes Neck Neck: Yes normal visual inspection, Yes full ROM and Yes trachea midline Chest Chest palpation & inspection: normal inspection of the chest Resp Effort & Inspection: normal respiratory effort, able to speak in complete sentences and no respiratory distress GI Inspection: Yes normal to inspection Back/Spine/Pelvis Cervical Spine: normal cervical lordosis Thoracic/Lumbar Spine: thoracic and lumbar spine normal to inspection Skin General skin exam: no rashes or lesions noted Neuro General: patient oriented x3, gait normal, tone normal and moves all extremities Extrem General: Yes normal to inspection and Yes capillary refill normal Assessment & Plan Assessment & Plan (1) Bacteriuria: Code(s): R82.71 - Bacteriuria Category: Medical Plan Twelve month follow-up Patient Instructions: This note is constructed using voice recognition software. While every effort has been made to ensure accuracy casing wringer operator errors may have been included. Imaging studies, laboratory and physical exam results were discussed and reviewed in detail. No major barriers to patient understanding were identified. An opportunity to ask questions regarding the treatment plan was provided. All questions were answered. The patient expressed understanding and agreement with the above treatment plan. The patient is aware they should contact our office by phone for worsening of their current condition or the appearance of new urologic symptoms. Compliance is encouraged with any medications and followup testing that is ordered. It is a privilege to participate in the urologic care of your patient. If you have any questions or concerns regarding treatment for the above conditions, or other urologic issues, please do not hesitate to contact me. The office telephone contact is [phone]. Sincerely, Dr Neftali Paula MD, BOO [facility] - Urology Compassionate Specialist Care for the Genitourinary System Coding Level of Care Code Est Pt Level 3 (01929) Complex EM visit Add On G2211 Diagnoses Bacteriuria R82.71
== END 2025-01-20 13:22 | disposition home or self-care (01) ==
LOC: HO.HUSH 12:32
PROVIDERS: PCP Internal Medicine; Visit Provider Urology
DX: R82.71 Bacteriuria (principal)
CPT/HCPCS: 99213; G2211

== ENCOUNTER → 2025-01-20 12:32 | Outpatient (BNVA) | payer MEDICARE, SELFPAY | PROVIDERS: PCP Internal Medicine; Visit Provider Urology | DX: R82.71 Bacteriuria (principal) | CPT/HCPCS: 99212 ==

== ENCOUNTER 2025-01-24 17:40 | Emergency (ER) | payer MEDICARE, SELFPAY ==
--- NOTE | ~2025-01-24 | XR_ITS ---
CLINICAL HISTORY: pain, injury 3 view right shoulder Comparison: None Findings: No acute fracture. No dislocation. Osteopenia is present. There is a focus of cortical irregularity at the level of the greater tuberosity likely on the basis of rotator cuff pathology. There is mild narrowing of the acromioclavicular joint. No erosions. No radiopaque foreign body. IMPRESSION: No acute bony abnormality. This document has been electronically signed by: Gaby Ruiz MD on 01/24/2025 18:44:15
--- NOTE | ~2025-01-24 | XR_ITS ---
CLINICAL HISTORY: pain, injury 2 view right forearm Comparison: None Findings: No fractures or dislocations. There is osteopenia. No joint effusion. No significant arthritic change. No radiopaque foreign body. IMPRESSION: 1. No acute bony abnormality. This document has been electronically signed by: Gaby Ruiz MD on 01/24/2025 18:39:26
--- NOTE | ~2025-01-24 | CT_ITS ---
CLINICAL HISTORY: fall, pain CT head without contrast Comparison: None Findings: Involutional change and nonspecific white matter hypodensity. No intracranial mass, midline shift, hydrocephalus, or acute hemorrhage. Orbits, paranasal sinuses, and mastoid air cells are unremarkable. No skull fracture. 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 This is of no current significance. Impression: 1. No acute findings This document has been electronically signed by: Gaby Ruiz MD on 01/24/2025 19:29:14
[2025-01-24 17:45] VITALS: BP 137/63; PULSE 63; RESP 14; TEMP 36.5; O2SAT 97; BMI 15.7
--- NOTE | 2025-01-24 17:45 | ED.GENADULT ---
HPI - General Adult General Chief complaint: Fall Stated complaint: fell off toilet/rt forearm wound Time Seen by Provider: 01/24/25 19:21 Source: patient Mode of arrival: EMS Limitations: no limitations History of Present Illness ED Provider: HPI narrative: Patient is 84 years old with history of AFib on Eliquis, patient was trying to get off from the toilet around 14 30 lost balance and fell likely patient was asleep comes here with skin tear on the right for no other signs of injuries no history of frequent falls in the past patient denied any palpitation or chest pain denies any pain no fever no chills no nausea no vomiting Related Data Home Medications ?Medication ?Instructions ?Recorded ?Confirmed vitamin B complex 1 tab PO DAILY 05/01/24 12/16/24 furosemide 20 mg tablet 20 mg PO DAILY 05/07/24 12/16/24 donepezil 10 mg tablet 10 mg PO BEDTIME 11/29/24 12/16/24 Previous Rx's ?Medication ?Instructions ?Recorded cholecalciferol (vitamin D3) 25 25 mcg PO DAILY 90 days #90 caps 12/06/22 mcg (1,000 unit) capsule apixaban 2.5 mg tablet (Eliquis) 2.5 mg PO BID 90 days #180 tabs 08/12/24 vancomycin 125 mg capsule 125 mg PO Q6H 10 days #40 caps 12/02/24 levothyroxine 75 mcg tablet 75 mcg PO DAILY@0600 90 days #90 12/16/24 tabs metoprolol succinate 100 mg 100 mg PO DAILY 90 days #90 tabs 12/16/24 tablet,extended release 24 hr Allergies Allergy/AdvReac Type Severity Reaction Status Date / Time Sulfa (Sulfonamide Allergy Mild RASH Verified 01/24/25 17:55 Antibiotics) [Sulfa (Sulfonamides)] ciprofloxacin [Cipro] Allergy Unknown rash Verified 01/24/25 17:55 scallops Allergy Unknown Sick to Verified 01/24/25 17:55 the stomach Review of Systems Review of Systems: Yes all other systems are reviewed and are negative [facility] Past Medical History Medical History Mitral regurgitation Cataract of both eyes Anticoagulated on Coumadin Petechial rash Petechial rash Enlarged RV (right ventricle) Tricuspid regurgitation Alzheimer's disease Irritable bowel syndrome (IBS) Osteoporosis Chronic kidney disease (CKD), stage III (moderate) Pure hypercholesterolemia Hypothyroidism Chronic atrial fibrillation CHF due to valvular disease Surgical History Status post implantation of mitral valve leaflet clip (~06/16/20) Hx of tubal ligation Hx of left mastectomy Family History Family History Father Hx of blood clots Mother Hx of blood clots Social History Social History Household Members: Other Household Members Other:: Son Alex Housing: House Do you presently have visiting nurse or other home services: No Alcohol intake: never Patient Tobacco Use Status: Never used Tobacco Smoked in Last 30 Days: No e-Cigarette/Vaping Use: Never Used Second Hand Smoke Exposure: No Use of substances other than those prescribed or required for medical reasons: No Advance Directives: No Advance Directives Information Provided: Yes Advance Directives Date on File: 08/11/22 service: No Current occupational status: retired Cognitive needs: No Hearing needs: No Vision needs: Yes Physical Exam ED Vital Signs: Vital Signs - 24 hr 01/24/25 17:45 01/24/25 19:27 01/24/25 21:57 Temperature 97.7 F 97.7 F Pulse Rate 63 72 73 Respiratory Rate 14 16 Blood Pressure 137/63 129/82 141/81 H Pulse Oximetry 97 97 Oxygen Delivery Method Room Air Room Air 01/24/25 21:57 01/24/25 21:57 01/24/25 21:59 Temperature 98.4 F Pulse Rate 74 79 Respiratory Rate 18 Blood Pressure 148/81 H 156/84 H Pulse Oximetry 98 Oxygen Delivery Method Room Air 01/24/25 22:44 Temperature 98.4 F Pulse Rate 79 Respiratory Rate 18 Blood Pressure 156/84 H Pulse Oximetry 98 Oxygen Delivery Method Room Air BMI result Body Mass Index 15.7 Appearance: Alert. Oriented X3. No acute distress. Very frail Eyes: No pallor or icterus ENT: Pharynx normal. Oral Mucosa moist Neck: Normal inspection. Neck supple. CVS: Irregularly irregular heart rate systolic murmur at apex. Pulses normal. Respiratory: No respiratory distress. Equal air entry bilateral, no wheezing/rales/rhonchi Abdomen: Soft and nontender. Bowel sounds are present, no mass palpable, no CVA tenderness Skin: Skin warm and dry. Normal skin color. Normal skin turgor. Extremities: No lower extremity edema. No calf tenderness superficial skin tear right forearm Neuro: Oriented X 3. No motor deficit. No sensory deficit.No cerebellar signs , cranial nerves II-XII intact Course Course Course Narrative: RME performed by Samantha Duckworth PA-C. Patient is an 84 year old assigned female at presenting to the emergency department with right shoulder pain and right forearm pain after a fall. Patient states that she slid off the toilet and now her right shoulder and forearm hurts. Patient states that she is on eliquis. Detailed physical exam and review of systems are deferred to the administrative support manager. Imaging ordered. Patient placed back in the waiting room pending room availability and results. Procedures Laceration Laceration 1: Site: upper extremity Side (If applicable): right Size (cm): 10 Description: other (Skin avulsion) Depth: simple, single layer Pre-repair: deep structures intact Skin layer closed with: other (Steri-Strips) Medical Decision Making Medical Decision Making [facility] Narrative: Patient's with history of atrial fibrillation frail% on Eliquis comes hereafter mechanical fall while sitting on the toilet seat and dozed off CT scan of the head is negative for acute lab workup with stable labs EKG without any ischemic changes patient has a skin tear which was steri stripped Differential Diagnosis Differential Diagnoses: The differential diagnosis associated with the presentation includes Subdural hematoma/fracture/fall/metabolic Lab Data [facility] Lab Attestation statement: I reviewed the patient's lab results. 01/24/25 20:06 01/24/25 20:06 Labs: Lab Results 01/24/25 Range/Units 20:06 WBC 5.7 (4.8-10.8) X10*3/uL RBC 3.63 L (4.20-5.50) X10*6/uL Hgb 11.9 L (12.0-16.0) g/dl Hct 36.3 L (37.0-47.0) % MCV 100.0 H (80.0-98.0) fL MCH 32.8 (27.0-33.0) pg MCHC 32.8 (31.0-35.0) g/dl RDW 15.2 (11.0-16.0) % Plt Count 150 L D (160-400) X10*3/uL MPV 8.5 L (9.4-12.3) fL Immature Gran % (Auto) 0.4 (0.0-0.4) % Neut % (Auto) 75.6 H (45-73) % Lymph % (Auto) 12.6 L (20-40) % Runnels % (Auto) 9.1 (2-11) % Eos % (Auto) 1.9 (0-4) % Baso % (Auto) 0.4 (0-2) % Lymph # (Auto) 0.7 L (1.2-4.9) X10*3/uL Runnels # (Auto) 0.5 (0.1-1.2) X10*3/uL Eos # (Auto) 0.1 (0.0-0.4) X10*3/uL Baso # (Auto) 0.0 (0.0-0.2) X10*3/uL Abs Immat Gran (auto) 0.02 (0.00-0.03) X10*3/uL Absolute Neuts (auto) 4.3 (2.0-8.3) x10*3/uL Absolute Nucleated RBC 0.000 (0.0-0.012) X10*3/uL Nucleated RBC % (auto) 0.0 (0.0-0.2) /100WBC Sodium 142 (135-145) mmol/L Potassium 4.1 (3.3-5.1) mmol/L Chloride 104 (96-108) mmol/L Carbon Dioxide 31 H (22-29) mmol/L Anion Gap 11 L (12-20) BUN 40 H (9-16) mg/dL Creatinine 1.08 (0.5-1.4) mg/dL Estim Creat Clear Calc 22.7 Estimated GFR 48 Random Glucose 99 (60-115) mg/dL Calcium 9.0 (8.4-10.2) mg/dL Magnesium 2.2 (1.6-2.6) mg/dL Total Bilirubin 0.8 (0.0-1.0) mg/dL AST 58 H (5-31) U/L ALT 35 H (0-31) U/L Alkaline Phosphatase 140 H (39-117) U/L Troponin I High Sens 3.1 D (<3.5-17.0) ng/L Total Protein 6.5 (6.5-8.0) g/dL Albumin 3.7 (3.5-5.0) g/dL Independent Interpretation I performed an independent interpretation of an: EKG Interpretation: Atrial fibrillation with ventricular rate of 65 beats per minute right axis deviation no acute STT wave changes no acute ischemia Radiology Impression Discussion of test interpretation with radiology: I have reviewed the radiologist's reading. Radiologist Impression: No acute Discharge Plan Discharge Clinical Impression: Fall, Avulsion of skin of forearm Patient Disposition: Home, Self-Care Instructions: Fall Prevention for Older Adults (ED), Skin Avulsion (ED) Additional Instructions: Local care as advised Steri-Strips may stay on your forearm for 1 week until heals Prescriptions: No Action vitamin B complex Tablet 1 tab PO DAILY donepezil 10 mg tablet 10 mg PO BEDTIME vancomycin 125 mg Capsule 125 mg PO Q6H 10 Days Qty: 40 0RF cholecalciferol (vitamin D3) 25 mcg (1,000 unit) capsule 25 mcg PO DAILY 90 Days Qty: 90 3RF furosemide 20 mg tablet 20 mg PO DAILY Eliquis 2.5 mg tablet 2.5 mg PO BID 90 Days Qty: 180 3RF levothyroxine 75 mcg tablet 75 mcg PO DAILY@0600 90 Days Qty: 90 3RF metoprolol succinate 100 mg tablet extended release 24 hr 100 mg PO DAILY 90 Days Qty: 90 3RF Interventions: ED Discharge Assessment Last Done: 01/24/25 22:44 Discharge Date/Time: 01/24/25 22:55 Print Language: Bengali
[2025-01-24 19:27] VITALS: BP 129/82; PULSE 72; RESP 16; TEMP 36.5; O2SAT 97
--- OUTSIDE RECORDS SUMMARY | 2025-01-24 19:41 | XMS_ITS ---
Author Organization [facility] Address [address] [place] [address] Care Team Providers Care Door Hanger Name Role Phone Hitesh CRENSHAW [place] Primary Care Provider Patti Arellano Unavailable [phone] Allergies Allergen (clinical drug ingredient) Drug/Non Drug [...] Active Encounters Encounter Location Date Provider Diagnosis [facility] [address] [place] [address] 10/17/2024 Patti Andrade Plan Of Treatment Next Appt Details Provider Name:Patti ponce, 04/01/2025 09:30:00 AM, [address] [place], [address], Progress Notes * Sandra HERRERA ADOB: [birth year] (84 yo F)Acc No.[id number]:10/17/2024 Progress Note Patient:?Sandra HERRERA Provider:?Patti Andrade DPM :1940???Age:84 Y???Sex:Female D ate:10/17/2024 Address:[address] [place] [address] [id number] Pcp:Darrian Proctor MD Subjective: * Chief Complaints: [...] Andrade DPM Date:? Generated for Bella interiano/Svetlana/Ozitting on:?01/24/2025 07:41 PM EDT
--- NOTE | 2025-01-24 19:54 | ECG_ITS ---
Test Reason : A FIB Blood Pressure : */* mmHG Vent. Rate : 65 BPM Atrial Rate : * BPM P-R Int : * ms QRS Dur : 94 ms QT Int : 430 ms P-R-T Axes : * 139 6 degrees QTcB Int : 447 ms Atrial fibrillation Right axis deviation Incomplete right bundle branch block Anterior infarct (cited on or before 28-Nov-2024) Abnormal ECG When compared with ECG of 28-Nov-2024 17:46, T wave amplitude has increased in Lateral leads Referred By: Victor Hugo Frank Electronically Signed By: QIANA FLANNERY MD
[2025-01-24 20:10] LABS: Basophils Percent Auto 0.4 % (0-2); Eosinophils Absolute Auto 0.1 X10*3/uL (0.0-0.4); Eosinophils Percent Auto 1.9 % (0-4); Hematocrit 36.3 % (37.0-47.0); Hemoglobin 11.9 g/dl (12.0-16.0); Imm Gran Abs Auto 0.02 X10*3/uL (0.00-0.03); Imm Gran Pct Auto 0.4 % (0.0-0.4); Lymphocytes Absolute Auto 0.7 X10*3/uL (1.2-4.9); Lymphocytes Percent Auto 12.6 % (20-40); MANUAL DIFF FLAG NO; Mean Corpuscular HGB Conc 32.8 g/dl (31.0-35.0); Mean Corpuscular Hemoglobin 32.8 pg (27.0-33.0); Mean Platelet Volume 8.5 fL (9.4-12.3); Monocytes Absolute Auto 0.5 X10*3/uL (0.1-1.2); Monocytes Percent Auto 9.1 % (2-11); Neutrophils Absolute Auto 4.3 x10*3/uL (2.0-8.3); Neutrophils Percent Auto 75.6 % (45-73); Platelet Count 150 X10*3/uL (160-400); Red Blood Count 3.63 X10*6/uL (4.20-5.50); Red Cell Distribution Width 15.2 % (11.0-16.0); White Blood Count 5.7 X10*3/uL (4.8-10.8)
[2025-01-24 20:24] LABS: Alanine Aminotransferase 35 U/L (0-31); Albumin Level 3.7 g/dL (3.5-5.0); Alkaline Phosphatase 140 U/L (39-117); Anion Gap 11 (12-20); Aspartate Amino Transferase 58 U/L (5-31); Bilirubin Total 0.8 mg/dL (0.0-1.0); Blood Urea Nitrogen 40 mg/dL (9-16); Carbon Dioxide 31 mmol/L (22-29); Chloride 104 mmol/L (96-108); Creatinine Clr Calc Pharmacy 22.7; Estimated Glomerular Filt Rate 48; Glucose Random 99 mg/dL (60-115); Magnesium 2.2 mg/dL (1.6-2.6); Potassium 4.1 mmol/L (3.3-5.1); Sodium 142 mmol/L (135-145); Total Protein 6.5 g/dL (6.5-8.0)
[2025-01-24 20:31] LABS: Troponin-I High Sensitivity 3.1 ng/L (<3.5-17.0)
[2025-01-24 21:57] VITALS: BP 141/81; BP 148/81; BP 156/84; PULSE 73; PULSE 74; PULSE 79
[2025-01-24 21:59] VITALS: RESP 18; TEMP 36.9; O2SAT 98
[2025-01-24 22:44] VITALS: BP 156/84; PULSE 79; RESP 18; TEMP 36.9; O2SAT 98
== END 2025-01-24 22:55 | disposition home or self-care (01) ==
PROVIDERS: Emergency Provider Internal Medicine; PCP Internal Medicine
DX: S51.811A Laceration without foreign body of right forearm, initial encounter (principal); W19.XXXA Unspecified fall, initial encounter; I48.91 Unspecified atrial fibrillation; Z79.01 Long term (current) use of anticoagulants; Y93.9 Activity, unspecified; Y92.012 Bathroom of single-family (private) house as the place of occurrence of the external cause; Y99.9 Unspecified external cause status
CPT/HCPCS: 36415; 70450; 73030; 73090; 80053; 83735; 84484; 85025; 93005; 99284

== ENCOUNTER → 2025-01-24 17:47 | Outpatient (BNV) | payer MEDICARE, SELFPAY | PROVIDERS: PCP Internal Medicine; Visit Provider Radiology Diagnostic Radiology | DX: R51.9 Headache, unspecified (principal); M25.511 Pain in right shoulder; M79.631 Pain in right forearm; W19.XXXA Unspecified fall, initial encounter | CPT/HCPCS: 70450; 73030; 73090 ==

== ENCOUNTER → 2025-01-24 19:54 | Outpatient (BNV) | payer MEDICARE, SELFPAY | PROVIDERS: Emergency Provider Internal Medicine; PCP Internal Medicine; Visit Provider Internal Medicine Cardiovascular Disease | DX: I48.91 Unspecified atrial fibrillation (principal); I45.10 Unspecified right bundle-branch block; I25.2 Old myocardial infarction | CPT/HCPCS: 93010 ==

== ENCOUNTER 2025-01-27 10:37 | Emergency (ER) | payer MEDICARE, SELFPAY ==
[2025-01-27 11:00] VITALS: BP 121/63; PULSE 64; RESP 18; TEMP 36.5; O2SAT 100; BMI 15.8
[2025-01-27 11:48] LABS: MANUAL DIFF FLAG NO
[2025-01-27 11:49] LABS: Basophils Percent Auto 0.4 % (0-2); Eosinophils Absolute Auto 0.1 X10*3/uL (0.0-0.4); Eosinophils Percent Auto 1.5 % (0-4); Hematocrit 40.3 % (37.0-47.0); Hemoglobin 12.7 g/dl (12.0-16.0); Imm Gran Abs Auto 0.02 X10*3/uL (0.00-0.03); Imm Gran Pct Auto 0.4 % (0.0-0.4); Lymphocytes Absolute Auto 0.8 X10*3/uL (1.2-4.9); Lymphocytes Percent Auto 13.8 % (20-40); Mean Corpuscular HGB Conc 31.5 g/dl (31.0-35.0); Mean Corpuscular Hemoglobin 32.4 pg (27.0-33.0); Mean Corpuscular Volume 102.8 fL (80.0-98.0); Monocytes Absolute Auto 0.5 X10*3/uL (0.1-1.2); Monocytes Percent Auto 9.3 % (2-11); Neutrophils Absolute Auto 4.1 x10*3/uL (2.0-8.3); Neutrophils Percent Auto 74.6 % (45-73); Platelet Count 168 X10*3/uL (160-400); Red Blood Count 3.92 X10*6/uL (4.20-5.50); White Blood Count 5.5 X10*3/uL (4.8-10.8)
[2025-01-27 11:56] LABS: INTERNATIONAL NORM RATIO 1.2 (0.9-1.1); Prothrombin Time 14.2 SEC (10.9-12.4)
[2025-01-27 12:04] LABS: Anion Gap 11 (12-20); Blood Urea Nitrogen 33 mg/dL (9-16); Calcium 9.3 mg/dL (8.4-10.2); Carbon Dioxide 33 mmol/L (22-29); Chloride 102 mmol/L (96-108); Estimated Glomerular Filt Rate 49; Glucose Random 171 mg/dL (60-115); Potassium 4.7 mmol/L (3.3-5.1); Sodium 141 mmol/L (135-145)
--- NOTE | 2025-01-27 15:34 | ED.GENADULT ---
HPI - General Adult General Chief complaint: Wound/Laceration Stated complaint: Fall few days ago - hand injury Time Seen by Provider: 01/27/25 15:32 Source: patient, RN notes reviewed and old records reviewed Mode of arrival: ambulatory Limitations: no limitations History of Present Illness ED Provider: Mari HPI narrative: 84-year-old female presents for evaluation of right forearm redness. Patient was seen here 3 days ago after a fall. She had a workup that did not show any significant findings. She did have a right forearm laceration /skin tear that was closed with Steri-Strips. The patient's daughter is concerned that the wound is becoming infected as there is drainage around the dressing the patient denies any significant pain, she does have a history of dementia there have not been any reported fevers Related Data Home Medications ?Medication ?Instructions ?Recorded ?Confirmed vitamin B complex 1 tab PO DAILY 05/01/24 12/16/24 furosemide 20 mg tablet 20 mg PO DAILY 05/07/24 12/16/24 donepezil 10 mg tablet 10 mg PO BEDTIME 11/29/24 12/16/24 Previous Rx's ?Medication ?Instructions ?Recorded cholecalciferol (vitamin D3) 25 25 mcg PO DAILY 90 days #90 caps 12/06/22 mcg (1,000 unit) capsule apixaban 2.5 mg tablet (Eliquis) 2.5 mg PO BID 90 days #180 tabs 08/12/24 vancomycin 125 mg capsule 125 mg PO Q6H 10 days #40 caps 12/02/24 levothyroxine 75 mcg tablet 75 mcg PO DAILY@0600 90 days #90 12/16/24 tabs metoprolol succinate 100 mg 100 mg PO DAILY 90 days #90 tabs 12/16/24 tablet,extended release 24 hr cephalexin 500 mg capsule 500 mg PO QID #28 caps 01/27/25 Allergies Allergy/AdvReac Type Severity Reaction Status Date / Time Sulfa (Sulfonamide Allergy Mild RASH Verified 01/27/25 11:04 Antibiotics) [Sulfa (Sulfonamides)] ciprofloxacin [Cipro] Allergy Unknown rash Verified 01/27/25 11:04 scallops Allergy Unknown Sick to Verified 01/27/25 11:04 the stomach Review of Systems Constitutional: Constitutional: Reports as per HPI, Denies chills and Denies fever(s) Integumentary/Breasts: Skin/Breast: Reports erythema and Reports wounds PMFSH Past Medical History Medical History Mitral regurgitation Cataract of both eyes Anticoagulated on Coumadin Petechial rash Petechial rash Enlarged RV (right ventricle) Tricuspid regurgitation Alzheimer's disease Irritable bowel syndrome (IBS) Osteoporosis Chronic kidney disease (CKD), stage III (moderate) Pure hypercholesterolemia Hypothyroidism Chronic atrial fibrillation CHF due to valvular disease Surgical History Status post implantation of mitral valve leaflet clip (~06/16/20) Hx of tubal ligation Hx of left mastectomy Family History Family History Father Hx of blood clots Mother Hx of blood clots Social History Social History Household Members: Other Household Members Other:: Son Alex Housing: House Do you presently have visiting nurse or other home services: No Alcohol intake: never Patient Tobacco Use Status: Never used Tobacco e-Cigarette/Vaping Use: Never Used Second Hand Smoke Exposure: No Advance Directives: Yes Advance Directives on File: Yes Advance Directives Date on File: 08/11/22 service: No Current occupational status: retired Cognitive needs: No Hearing needs: No Vision needs: Yes Physical Exam ED Vital Signs: Vital Signs - 24 hr 01/27/25 11:00 01/27/25 15:39 Temperature 97.7 F 97.7 F Pulse Rate 64 64 Respiratory Rate 18 18 Blood Pressure 121/63 121/63 Pulse Oximetry 100 100 Oxygen Delivery Method Room Air Room Air BMI result Body Mass Index 15.8 Const General: healthy appearing, comfortable, no acute distress, alert and awake Nutritional Appearance: well nourished Orientation/consciousness: patient oriented x3 HENMT Head: Yes normocephalic and Yes atraumatic Eyes Eyelids: Yes eyelids normal Conjunctivae: conjunctivae normal Sclerae: sclerae normal Corneas: corneas normal EOM: EOMs intact bilaterally Resp Effort & Inspection: normal respiratory effort, able to speak in complete sentences and not labored Skin Other: patient has some bloody and purulent drainage from the proximal aspect of the wound, Steri-Strips remain intact. There is some surrounding erythema. there is some tenderness to the area. General skin exam: elasticity normal Neuro General: patient oriented x3 Cranial nerves: Yes Bilaterally intact EOM present Cognition (Neuro): normal cognition Extrem Other: there is some ecchymosis to the distal forearm extending into the wrist and dorsal surface of the right hand, but no deformity or tenderness to be the distal forearm wrist or hand. Medical Decision Making Medical Decision Making [facility] Narrative: 84-year-old female presenting for evaluation of a suspected skin infection in the area of a recent wound. She has no fever, vital signs are stable, there is no leukocytosis. she does have some discoloration to the forearm which appears most consistent with bruising from a recent fall, she is also on Eliquis. There is some purulent drainage, likely a developing cellulitis. We will start the patient on cephalexin for early cellulitis. There was no evidence of systemic infection, I educated the patient's daughter on wound care and return precautions were given Differential Diagnosis Differential Diagnoses: The differential diagnosis associated with the presentation includes cellulitis Laceration Skin tear Acute wound Lab Data [facility] Lab Attestation statement: I reviewed the patient's lab results. no leukocytosis or anemia. Normal platelet count. No significant electrolyte abnormalities warranting intervention. 01/27/25 11:37 01/27/25 11:37 Labs: Lab Results 01/27/25 Range/Units 11:37 WBC 5.5 (4.8-10.8) X10*3/uL RBC 3.92 L (4.20-5.50) X10*6/uL Hgb 12.7 (12.0-16.0) g/dl Hct 40.3 (37.0-47.0) % MCV 102.8 H (80.0-98.0) fL MCH 32.4 (27.0-33.0) pg MCHC 31.5 (31.0-35.0) g/dl RDW 15.0 (11.0-16.0) % Plt Count 168 (160-400) X10*3/uL MPV 9.0 L (9.4-12.3) fL Immature Gran % (Auto) 0.4 (0.0-0.4) % Neut % (Auto) 74.6 H (45-73) % Lymph % (Auto) 13.8 L (20-40) % Redwood % (Auto) 9.3 (2-11) % Eos % (Auto) 1.5 (0-4) % Baso % (Auto) 0.4 (0-2) % Lymph # (Auto) 0.8 L (1.2-4.9) X10*3/uL Redwood # (Auto) 0.5 (0.1-1.2) X10*3/uL Eos # (Auto) 0.1 (0.0-0.4) X10*3/uL Baso # (Auto) 0.0 (0.0-0.2) X10*3/uL Abs Immat Gran (auto) 0.02 (0.00-0.03) X10*3/uL Absolute Neuts (auto) 4.1 (2.0-8.3) x10*3/uL Absolute Nucleated RBC 0.000 (0.0-0.012) X10*3/uL Nucleated RBC % (auto) 0.0 (0.0-0.2) /100WBC PT 14.2 H (10.9-12.4) SEC INR 1.2 H (0.9-1.1) Sodium 141 (135-145) mmol/L Potassium 4.7 (3.3-5.1) mmol/L Chloride 102 (96-108) mmol/L Carbon Dioxide 33 H (22-29) mmol/L Anion Gap 11 L (12-20) BUN 33 H (9-16) mg/dL Creatinine 1.07 (0.5-1.4) mg/dL Estim Creat Clear Calc 23.0 Estimated GFR 49 Random Glucose 171 H (60-115) mg/dL Calcium 9.3 (8.4-10.2) mg/dL Discharge Plan Discharge Clinical Impression: Right forearm cellulitis Patient Disposition: Home, Self-Care Instructions: Cellulitis (ED) Additional Instructions: I recommend changing your dressing once a day you may apply topical antibiotic, but do not remove the Steri-Strips. Keep the area clean and dry. You may take cephalexin 4 times a day for 1 week to treat a skin infection. Return for new or worsening symptoms, especially if you develop fever Prescriptions: New cephalexin 500 mg capsule 500 mg PO QID Qty: 28 0RF No Action vitamin B complex Tablet 1 tab PO DAILY donepezil 10 mg tablet 10 mg PO BEDTIME vancomycin 125 mg Capsule 125 mg PO Q6H 10 Days Qty: 40 0RF cholecalciferol (vitamin D3) 25 mcg (1,000 unit) capsule 25 mcg PO DAILY 90 Days Qty: 90 3RF furosemide 20 mg tablet 20 mg PO DAILY Eliquis 2.5 mg tablet 2.5 mg PO BID 90 Days Qty: 180 3RF levothyroxine 75 mcg tablet 75 mcg PO DAILY@0600 90 Days Qty: 90 3RF metoprolol succinate 100 mg tablet extended release 24 hr 100 mg PO DAILY 90 Days Qty: 90 3RF Interventions: ED Discharge Assessment Last Done: 01/27/25 15:39 Discharge Date/Time: 01/27/25 15:39 Print Language: German
[2025-01-27 15:39] VITALS: BP 121/63; PULSE 64; RESP 18; TEMP 36.5; O2SAT 100
--- OUTSIDE RECORDS SUMMARY | 2025-01-27 17:00 | XMS_ITS ---
Author Organization [facility] Address [address] [place] [address] Care Team Providers Care Transitional Living Specialist Name Role Phone Hitesh CRENSHAW [place] Primary Care Provider Patti Arellano Unavailable [phone] Allergies Allergen (clinical drug ingredient) Drug/Non Drug [...] Encounters Encounter Location Date Provider Diagnosis [facility] [address] [place] [address] 10/17/2024 Patti Andrade Plan Of Treatment Next Appt Details Provider Name:Patti ponce, 04/01/2025 09:30:00 AM, [address] [place], [address], Progress Notes * Sandra HERRERA ADOB: 9 (84 yo F)Acc No.[id number]:10/17/2024 Progress Note Patient:?Sandra HERRERA Provider:?Patti Andrade DPM :1940???Age:84 Y???Sex:Female D ate:10/17/2024 Address:[address] [place] [address] [id number] Pcp:Darrian Proctor MD Subjective: * Chief Complaints: [...] Andrade DPM Date:? Generated for Bella interiano/Svetlana/Ozitting on:?01/27/2025 05:00 PM EDT
== END 2025-01-27 15:39 | disposition home or self-care (01) ==
PROVIDERS: Emergency Provider Emergency Medicine Emergency Medical Services; PCP Internal Medicine
DX: L03.113 Cellulitis of right upper limb (principal); M79.631 Pain in right forearm
CPT/HCPCS: 36415; 80048; 85025; 85610; 99282; 99283

== ENCOUNTER 2025-02-09 13:37 | Outpatient (AMB) | payer MEDICARE, SELFPAY ==
--- NOTE | 2025-02-09 13:40 | A.OFFPC_ITS ---
Vital Signs 02/09/25 13:42 Height 5 ft 1 in Weight 77 lb 2 oz BMI 14.6 BP 110/60 Blood Pressure Location Lt brachial Position Sitting Pulse 65 Pulse Source Pulse Oximeter Temp 97.3 F Temp Source Temporal Artery Scan Pulse Oximetry (%) 95 Oxygen Delivery Method Room Air Intake Visit Reasons: [facility] 01/24 Fall Intake Note: Patient is here for Emergency discharge follow up. Patient was discharged from [facility] on 01/24/25. Homicide Squad Captain Required: No Environmental Research Project Manager: Present Accompanied by: Daughter Allergies Sulfa (Sulfonamide Antibiotics) [Sulfa (Sulfonamides)] Allergy (Mild, Verified 02/09/25 13:56) RASH ciprofloxacin [Cipro] Allergy (Unknown, Verified 02/09/25 13:56) rash scallops Allergy (Unknown, Verified 02/09/25 13:56) Sick to the stomach Medication List - Last Reconciled 02/09/25 by NOE Ferraro apixaban (Eliquis) 2.5 mg PO BID 90 days cholecalciferol (vitamin D3) 25 mcg PO DAILY 90 days donepezil 10 mg PO BEDTIME furosemide 20 mg PO DAILY levothyroxine 75 mcg PO DAILY@0600 90 days metoprolol succinate ER 100 mg PO DAILY 90 days vitamin B complex 1 tab PO DAILY Tobacco use date assessed: 02/09/25 Fall risk assessment: 1 Fall in past year (01/24/25) Last assessed Fall Risk: 02/09/25 Dental Screening Dental Screen Date: 12/16/24 [facility] 01/24 Fall HPI Details The patient is 84 year old female present after a fall that cause her to go the hospital Significant past medical history of AFib on Eliquis, CHF to valvular disease, chronic kidney disease 3. She was reportedly trying to get off toilet and lost her balance and fell on her right side. She sustained a right forearm skin tear. This area was cleansed and secured with steri strips. After, this incident, the patient went back to the ER due to swelling in the right forearm. She was treated with keflex abt; this she since completed. The patient has not been eating much since, and her fluids intake has decreased significantly. She is on furosemide 20 mg daily, explained the patient daughter that if the patient is not drinking, she should hold this medication until she starts drinking again. Educated her to monitor the patient legs for swelling and pay attention to her breathing. Patient also has an upcoming appt with her dentist to and is supposed to be pre- medicated with amoxicillin. Her daughter is concern because she has been on four different antibiotics within a short period. Encouraged the patient's daughter to call the dentist and explained her situation to see if she still needs the antibiotic. Dressing intact to right forearm skin tear that she sustained during the fall. She denies pain to the area, except when she is using the forearm to push herself up in bed. [facility] Medical History Mitral regurgitation Cataract of both eyes Anticoagulated on Coumadin Petechial rash Petechial rash Enlarged RV (right ventricle) Tricuspid regurgitation Alzheimer's disease Irritable bowel syndrome (IBS) Osteoporosis Chronic kidney disease (CKD), stage III (moderate) Pure hypercholesterolemia Hypothyroidism Chronic atrial fibrillation CHF due to valvular disease Surgical History Status post implantation of mitral valve leaflet clip (~06/16/20) Hx of tubal ligation Hx of left mastectomy Family History Father Hx of blood clots Mother Hx of blood clots Social History Household Members: Other Household Members Other:: Son Alex Housing: House Do you presently have visiting nurse or other home services: No Alcohol intake: never Patient Tobacco Use Status: Never used Tobacco e-Cigarette/Vaping Use: Never Used Second Hand Smoke Exposure: No Advance Directives Date on File: 08/11/22 service: No Current occupational status: retired Cognitive needs: No Hearing needs: No Vision needs: Yes Questionnaire PHQ-9 Over the last 2 weeks, how often have you been bothered by any of the following problems? 1. Little interest or pleasure in doing things: not at all 2. Feeling down, depressed, or hopeless: not at all 3. Trouble falling or staying asleep, or sleeping too much: more than half the days 4. Feeling tired or having little energy: more than half the days 5. Poor appetite or overeating: more than half the days 6. Feeling bad about yourself - or that you are a failure or have let yourself or your family down: not at all 7. Trouble concentrating on things, such as reading the newspaper or watching television: more than half the days 8. Moving or speaking so slowly that other people could have noticed. Or the opposite - being so fidgety or restless that you have been moving around a lot more than usual: not at all 9. Thoughts that you would be better off or of hurting yourself in some way: not at all Total score: 8 Depression Screening Interpretation: Positive Depression Screening Done: Yes Source: Developed by Drs. Freedom Yung, Radha Herrera, Adi Anand and colleagues, with an educational alejandro from [employer]. Thrive Questionnaire Date Thrive assessed: 12/16/24 I am a: Parent/Caregiver What is your living situation today?: I have a steady place to live Within the past 12 months, did the food you bought not last and you didn't have the money to get more?: Never true Within the past 12 months, did you worry whether your food would run out before you got money to buy more?: Never true Do you have trouble paying for medicines?: No Do you have trouble getting transportation to medical appointments?: No Do you have trouble paying your heating and electricity bill?: No Do you have trouble taking care of your child, family member or friend?: No Do you have trouble with day-to-day activities such as bathing, preparing meals, shopping, managing finances, etc.?: Yes Are you currently unemployed and looking for a job?: No Are you interested in more education?: No Please select the resources that you would like help with: None Currently or been in a relationship where the following occur: No concerns reported THRIVE Score: 0 AUDIT C Alcohol Use Questionnaire (AUDIT-C) 1. How often do you have a drink containing alcohol?: Never Total Score: 0 ALTON-7 AMB Questionnaire ALTON-7 Date ALTON - 7 assessed: 12/16/24 Feeling nervous, anxious, or on edge: 0 = Not at all Not being able to stop or control worryin = Not at all Worrying too much about different things: 0 = Not at all Trouble relaxin = Not at all Being so restless that it is hard to sit still: 0 = Not at all Becoming easily annoyed or irritable: 1 = Several days Feeling afraid as if something awful might happen: 0 = Not at all Total ALTON-7 score (0-4 normal; 5-9 mild; 10-14 moderate; 15-21 severe): 1 Source: Developed by Drs. Freedom Yung, Radha Herrera, Adi Anand and colleagues, with an educational alejandro from [employer]. Review of Systems Const Denies headache(s) and Reports poor appetite Eyes Denies loss of vision ENT Denies vertigo, Denies dizziness, Denies headache(s) and Denies sore throat Card Denies chest pain, Denies leg edema and Denies lightheadedness Resp Denies cough, Denies hemoptysis and Denies wheezing GI Denies abdominal pain, Denies melena, Denies constipation, Denies diarrhea and Denies vomiting Denies urinary frequency, Denies dysuria and Denies urinary urgency Musc Denies arthralgias, Denies joint swelling, Denies numbness and Denies tingling Skin/Breast Reports other (right forearm skin tear-dressing intact) Neuro Denies Abnormal speech present, Reports behavioral changes (noted slight decline in mentation), Denies vertigo, Denies dizziness, Denies headache(s), Denies loss of vision, Denies memory loss, Denies numbness and Denies tingling Psych Denies anxiety, Reports behavioral changes (noted slight decline in mentation), Denies depression, Denies memory loss and Denies panic attacks Branden/Lymph Denies easy bleeding and Denies easy bruising Aller/Immun Denies wheezing Physical exam (Primary Care) Vital Signs: Last Vital Signs Temp 97.3 F 02/09/25 13:42 Pulse 65 02/09/25 13:42 BP 110/60 02/09/25 13:42 Pulse Ox 95 02/09/25 13:42 Oxygen Delivery Method Room Air 02/09/25 13:42 BMI result Body Mass Index 14.6 Tobacco/Smoking Status: Tobacco use Status Tobacco use date assessed 02/09/25 02/09/25 13:49 Patient Tobacco Use Status Never used Tobacco 02/09/25 13:49 e-Cigarette/Vaping Use Never Used 02/09/25 13:49 PHQ-9: PHQ-9 Score PHQ-9: Total score 8 02/09/25 14:08 Depression Screening Interpretation: Positive Thrive Assessment: Date of Thrive Assessment Date Thrive assessed 12/16/24 02/09/25 13:49 Currently or been in a relationship where the following occur: No concerns reported Const General: healthy appearing, no acute distress, alert and awake Nutritional Appearance: well nourished Orientation/consciousness: oriented to person, oriented to place and oriented to time HENMT Ears: TM's normal bilaterally General nose exam: Normal nasal mucous membranes and turbinates present Mouth: Normal oral and palatal mucosa present Throat: Yes posterior oropharynx normal Eyes Conjunctivae: conjunctivae normal Sclerae: sclerae normal Pupils: Equal, round and reactive pupils present Neck Neck: Yes no lymphadenopathy and Yes no JVD Thyroid: Thyroid normal Carotids: no bruits Resp Effort & Inspection: normal respiratory effort and not tachypneic Auscultation: no crackles, no rales, no rhonchi and no wheezes Cardio Rate: regular rate Rhythm: abnormal rhythm regularly irregular Heart sounds: no murmurs and normal S1 and S2 GI Palpation (GI): Soft to palpation, nontender, no hepatomegaly and no splenomegaly Auscultation: normal bowel sounds Skin General skin exam: dry skin Lesions: other (right forearm skin tear steri strips in place, no s/sx of infection) Neuro General: oriented to person, oriented to place and oriented to time Cranial nerves: Yes Equal, round and reactive pupils present Speech: No Abnormal speech present Gait exam (Neuro): Normal gait present Motor exam (neuro): no tremor noted Extrem Right upper extremity: full ROM Left upper extremity: full ROM Right lower extremity: full ROM; no edema Left lower extremity: full ROM; no edema Psych Mental Status: mental status grossly normal Speech and movement: Normal speech and movement present Affect: normal affect Attitude: cooperative Thought process: Normal thought process present Coding Level of Care Code Est Pt Level 4 (31345) Diagnoses Status post fall Z91.81 Poor appetite R63.0 Poor fluid intake R63.8 Skin tear of upper extremity S41.119A CHF due to valvular disease I50.9; I38 Stage 3a chronic kidney disease N18.31 Chronic kidney disease stage 3 subtype: stage 3a (GFR 45-59) Chronic atrial fibrillation I48.20 Time Spent (min) 42 Assessment & Plan Assessment & Plan (1) Status post fall: Code(s): Z91.81 - History of falling Category: Medical (2) Poor appetite: Code(s): R63.0 - Anorexia Category: Medical (3) Poor fluid intake: Code(s): R63.8 - Other symptoms and signs concerning food and fluid intake Category: Medical (4) Skin tear of upper extremity: Code(s): S41.119A - Laceration without foreign body of unspecified upper arm, initial encounter Category: Medical (5) CHF due to valvular disease: Code(s): I50.9 - Heart failure, unspecified; I38 - Endocarditis, valve unspecified Category: Medical (6) Chronic kidney disease (CKD), stage III (moderate): Code(s): N18.30 - Chronic kidney disease, stage 3 unspecified Category: Medical Qualifiers: Chronic kidney disease stage 3 subtype: stage 3a (GFR 45-59) Qualified Code(s): N18.31 - Chronic kidney disease, stage 3a (7) Chronic atrial fibrillation: Code(s): I48.20 - Chronic atrial fibrillation, unspecified Category: Medical Plan I discussed the management of the patient's current health concerns, including the poor wound healing associated with her decreased appetite and dehydration risk from furosemide use. I advised withholding the diuretic until her fluid intake improves. We explored dietary strategies, including increased protein intake, to foster wound healing. I emphasized the importance of maintaining adequate hydration and encouraged increased intake of electrolyte-rich fluids. Regarding her upcoming dental appointment, I recommended clarifying the necessity of prophylactic antibiotics, given her recent antibiotic regimen. The caregiver expressed understanding and agreement with this plan. I also stressed the importance of monitoring for leg swelling or respiratory difficulty, which would warrant reconsideration of the furosemide. I provided reassurance about potential adjustments to her treatment plan and referenced coordination with her dental care provider about her medical needs.
[2025-02-09 13:42] VITALS: BP 110/60; PULSE 65; TEMP 36.3; O2SAT 95; BMI 14.6
--- OUTSIDE RECORDS SUMMARY | 2025-02-09 15:11 | XMS_ITS ---
Author Organization [facility] Address [address] [place] [address] Care Team Providers Care Claims Associate Name Role Phone Hitesh CRENSHAW [place] Primary Care Provider Patti Arellano Unavailable [phone] Allergies Allergen (clinical drug ingredient) Drug/Non Drug [...] Active Encounters Encounter Location Date Provider Diagnosis [facility] [address] [place] [address] 10/17/2024 Patti Andrade Plan Of Treatment Next Appt Details Provider Name:Patti ponce, 04/01/2025 09:30:00 AM, [address] [place], [address], Progress Notes * Sandra HERRERA ADOB: [birth year] (84 yo F)Acc No.[id number]:10/17/2024 Progress Note Patient:?Sandra HERRERA Provider:?Patti Andrade DPM :1940???Age:84 Y???Sex:Female D ate:10/17/2024 Address:[address] [place] [address] [id number] Pcp:Darrian Proctor MD Subjective: * Chief Complaints: [...] Andrade DPM Date:? Generated for Bella interiano/Svetlana/Ozitting on:?02/09/2025 03:10 PM EDT
== END 2025-02-09 14:21 | disposition home or self-care (01) ==
LOC: HO.HMCH 13:38
PROVIDERS: PCP Internal Medicine
DX: I50.9 Heart failure, unspecified (principal); N18.31 Chronic kidney disease, stage 3a; I48.20 Chronic atrial fibrillation, unspecified; Z91.81 History of falling; R63.0 Anorexia; R63.8 Other symptoms and signs concerning food and fluid intake; S41.119A Laceration without foreign body of unspecified upper arm, initial encounter; I38 Endocarditis, valve unspecified

== ENCOUNTER → 2025-02-09 13:37 | Outpatient (BNVA) | payer MEDICARE, SELFPAY | PROVIDERS: PCP Internal Medicine | DX: N18.31 Chronic kidney disease, stage 3a (principal); I48.91 Unspecified atrial fibrillation; R63.0 Anorexia; R63.8 Other symptoms and signs concerning food and fluid intake; I50.9 Heart failure, unspecified; I38 Endocarditis, valve unspecified; I48.20 Chronic atrial fibrillation, unspecified; S51.811D Laceration without foreign body of right forearm, subsequent encounter; W18.11XD Fall from or off toilet without subsequent striking against object, subsequent encounter; Z91.81 History of falling; Z79.01 Long term (current) use of anticoagulants | CPT/HCPCS: 96127; 99212 ==

== ENCOUNTER 2025-03-30 09:46 | Outpatient (REF) | payer MEDICARE, SELFPAY ==
--- OUTSIDE RECORDS SUMMARY | 2024-10-17 10:00 | XMS_ITS ---
Author Organization [facility] Address [address] [place] [address] Care Team Providers Care Food And Nutrition Teacher Name Role Phone Hitesh CRENSHAW [place] Primary Care Provider Patti Arellano Unavailable [phone] Allergies Allergen (clinical drug ingredient) Drug/Non Drug [...] Active Encounters Encounter Location Date Provider Diagnosis [facility] [address] [place] [address] 10/17/2024 Patti Andrade Plan Of Treatment Next Appt Details Provider Name:Patti ponce, 04/01/2025 09:30:00 AM, [address] [place], [address], Progress Notes * Sandra HERRERA ADOB: [birth year] (84 yo F)Acc No.[id number]:10/17/2024 Progress Note Patient: Sandra CHAMPAGNE Provider: Anton Andrade DPM :1940 A ge:84 Y S ex:Female Date:10/17/2024 Address:[address] [place] [address] [place] Pcp:Darrian Proctor MD Subjective: * Chief Complaints: [...] Pending * Provider: Anton Andrade DPM Date: 10/17/2024 Generated for Bella interiano/Svetlana/Ozitting on: 0 03/30/2025 10:21 AM EDT
--- OUTSIDE RECORDS SUMMARY | 2025-03-30 10:21 | XMS_ITS | Patient Health Record ---
Author Organization [facility] Address [address] [place] [address] Care Team Providers Care Collections Associate Name Role Phone Hitesh CRENSHAW, Darrian Primary Care Provider Alex Acosta Jr Unavailable [phone] Allergies Allergen (clinical drug ingredient) Drug/Non Drug Allergy documented on EMR Reaction Allergy Type Onset Date Status Sulfa Unknown Drug Allergy Active ciprofloxacin Cipro Unknown Drug Allergy Act fortino Shellfish (FN) scallops (uncoded) Unknown Allergy Active Reason For Referral No Information Medications Medication SIG (Take, Route, Frequency, Duration) Notes Start Date End Date Status Levothyroxine Sodium 25 MCG 1 tablet Ora lly Once a day Active Aspir-81 81 MG 1 tablet Orally Once a day Active Vitamin B Complex Orally Ac tive Simvastatin 20 MG 1 tablet in the even ing Orally Once a day Active Vitamin D3 1000 UNIT 1 capsule Orally On ce a day Active Caltrate 600+D Plus Minerals 600-800 MG-UNIT 1 tablet Orally Twice a day Active Social History Tobacco Use: Social History Observation Description Date Details (start date - stop date) Never Smoker NA - NA Tobacco Use/Smoking Question Answer Notes Patient is a nonsmoker Alcohol Screen Question Answer Notes Did you have a drink containing alcohol in the p ast year? Yes Points 0 Interpretation Negative Problems Problem Type SNOMED Code ICD Code Onset Dates Problem Status W/U Status Risk Notes Problem [id number] Irritable bowel syndrome without diarrhea (K58.9) Active confirmed Plan Of Treatment No Information Insurance Providers Payer Name Payer Address Payer Phone Subscriber Number Group Number Insured Name Patient Relationship to Insured Coverage Start Date Coverage End Date [facility] [address] [place] [address] [id number] JAY MENDOZA Self - patient is the insured Medical (General) History Medical History History ICD Code colonoscopy 12-25-2008 colon polyp elevated cholesterol hypothyroidism mitral valve prolapse osteopenia breast cancer with mastectomy Denies IN,DM,CVA,Lung disease,renal dise ase Surgical History Surgery Date(Month/Year) tubal ligation 1970 mastectomy 1998 right knee arthroscopy 1994
--- OUTSIDE RECORDS SUMMARY | 2025-03-30 10:22 | XMS_ITS ---
Author Name [facility] Organization Unknown Encounters Encounter Type Encounter Reason Primary Diagnosis Location Date Ambulatory [facility]. ([facility]) 07/22/2024
[2025-03-30 13:02] LABS: Appearance Urine Turbid; Glucose Urine UA Negative (Negative); PH 5.5 (5.0-9.0); Specific Gravity - Urine 1.025 (1.005-1.025); UMIC TRIGGER UACC YES
[2025-03-30 13:31] LABS: UACC Culture Trigger YES
[2025-03-30 13:36] LABS: MANUAL DIFF FLAG NO
[2025-03-30 13:45] LABS: Hematocrit 40.4 % (37.0-47.0); Hemoglobin 12.7 g/dl (12.0-16.0); Imm Gran Abs Auto 0.02 X10*3/uL (0.00-0.03); Imm Gran Pct Auto 0.4 % (0.0-0.4); Lymphocytes Absolute Auto 1.1 X10*3/uL (1.2-4.9); Mean Corpuscular HGB Conc 31.4 g/dl (31.0-35.0); Mean Corpuscular Hemoglobin 31.8 pg (27.0-33.0); Mean Corpuscular Volume 101.3 fL (80.0-98.0); NRBC Abs Auto 0.000 X10*3/uL (0.0-0.012); NRBC Pct Auto 0.0 /100WBC (0.0-0.2); Platelet Count 186 X10*3/uL (160-400); Red Blood Count 3.99 X10*6/uL (4.20-5.50); White Blood Count 5.0 X10*3/uL (4.8-10.8)
[2025-03-30 14:00] LABS: Alanine Aminotransferase 26 U/L (0-31); Albumin Level 4.2 g/dL (3.5-5.0); Alkaline Phosphatase 118 U/L (39-117); Anion Gap 13 (12-20); Aspartate Amino Transferase 45 U/L (5-31); Blood Urea Nitrogen 41 mg/dL (9-16); Calcium 9.1 mg/dL (8.4-10.2); Carbon Dioxide 26 mmol/L (22-29); Chloride 108 mmol/L (96-108); Cholesterol 188 mg/dL (<200); Estimated Glomerular Filt Rate 29; HDL Cholesterol 66 mg/dL (>40); Potassium 5.0 mmol/L (3.3-5.1); Sodium 142 mmol/L (135-145); Total Protein 7.2 g/dL (6.5-8.0); Triglycerides 99 mg/dL (<150)
[2025-03-30 14:09] LABS: Free T4 (Free Thyroxine) 1.41 ng/dL (0.71-1.85); Thyroid Stimulating Hormone 2.57 uIU/mL (0.32-4.0)
== END 2025-03-30 09:47 | disposition home or self-care (01) ==
LOC: HO.HMGCLDS 09:46
PROVIDERS: PCP Internal Medicine; Visit Provider Internal Medicine
DX: D64.9 Anemia, unspecified (principal); E55.9 Vitamin D deficiency, unspecified; E78.00 Pure hypercholesterolemia, unspecified; E03.9 Hypothyroidism, unspecified
CPT/HCPCS: 36415; 80053; 80061; 81001; 81003; 82306; 84439; 84443; 85025; 87086

== ENCOUNTER 2025-04-07 09:47 | Outpatient (AMB) | payer MEDICARE, SELFPAY ==
--- OUTSIDE RECORDS SUMMARY | 2024-10-17 10:00 | XMS_ITS ---
Author Organization [facility] Address [address] [place] [address] Care Team Providers Care Block Making Machine Operator Name Role Phone Hitesh CRENSHAW [place] Primary Care Provider Patti Arellano Unavailable [phone] Allergies Allergen (clinical drug ingredient) Drug/Non Drug [...] Active Encounters Encounter Location Date Provider Diagnosis [facility] [address] [place] [address] 10/17/2024 Patti Andrade Plan Of Treatment Next Appt Details Provider Name:Patti ponce, 07/07/2025 10:00:00 AM, [address] [place], [address], Progress Notes * Sandra HERRERA ADOB: [birth year] (84 yo F)Acc No.[id number]:10/17/2024 Progress Note Patient: Sandra CHAMPAGNE Provider: Anton Andrade DPM :1940 A ge:84 Y S ex:Female Date:10/17/2024 Address:[address] [place] [address] [place] Pcp:Darrian Proctor MD Subjective: * Chief Complaints: [...] 10/17/2024 Generated for Bella interiano/Svetlana/Ozitting on: 0 04/07/2025 10:32 AM EDT
[2025-04-07 10:08] VITALS: BP 122/80; BMI 15.5
--- NOTE | 2025-04-07 10:08 | AM.OFFVISMDC ---
Intake Vital Signs 04/07/25 10:08 Height 5 ft 1 in Weight 82 lb 2 oz BMI 15.5 BP 122/80 Blood Pressure Location Lt brachial Position Sitting Pulse Source Pulse Oximeter Oxygen Delivery Method Room Air Intake Visit Reasons: SAWV Broaching Machine Set Up Operator Required: No Accompanied by: Self / Same As Patient Allergies Sulfa (Sulfonamide Antibiotics) (Sulfa (Sulfonamides)) Allergy (Mild, Verified 04/07/25 10:50) RASH ciprofloxacin (Cipro) Allergy (Unknown, Verified 04/07/25 10:50) rash scallops Allergy (Unknown, Verified 04/07/25 10:50) Sick to the stomach Medication List - Last Reconciled 04/07/25 by Darrian Proctor MD apixaban (Eliquis) 2.5 mg PO BID 90 days cholecalciferol (vitamin D3) 25 mcg PO DAILY 90 days donepezil 10 mg PO BEDTIME furosemide 20 mg PO DAILY PRN levothyroxine 75 mcg PO DAILY@0600 90 days metoprolol succinate ER 100 mg PO DAILY 90 days vitamin B complex 1 tab PO DAILY Do you need a note to return to daycare/school/sports/work: No HPI SAWV HPI Details Patient comes in today for her Medicare Annual Wellness Exam AND follow up visit - she is accompanied as usual by her daughter, who also acts as her HCP Patient states that she feels well She denies any headaches or dizziness; denies any fever or chills Denies any chest pains, no increased SOB No nausea/vomiting, no abdominal pain No change in bowel habits noted She denies any acute urinary symptoms and denies any flank pains Needs a couple of her Rx refilled She had her follow up labs done last week - to discuss her results At her age, she does not need to continue with any of the recommended routine cancer screenings [place] of care was reviewed and updated today Patient has a healthcare proxy and MOLST form in place and on file - no changes were made today IPPE/AWV: c/o of Annual Wellness Visit, subsequent visit. Medical / Social History Reviewed Past Medical History Yes . [place] of Care / Care Team list updated Yes . Surgical/Hospitalization History Yes . Current Medications (including OTC and supplements) Yes . Family History Yes . Tobacco Control form Yes . AUDIT-C (Alcohol use) form Yes . Illicit drug use in Social History Yes . Current diagnosis of depression? No Appropriate PHQ2/PHQ9 completed Yes . Data entered by Extractive Metallurgist and reviewed by provider Home Safety Throw rugs? No Grab bars? No Raised toilet seats? No Working smoke detectors? Yes Working carbon monoxide detectors? Yes Data entered by Extractive Metallurgist and reviewed by provider Activities of Daily Living (ADLs) Difficulty bathing or showering? No Difficulty dressing? No Difficulty using the toilet? No Difficulty getting in and out of bed? No Difficulty walking? No Receives help from another person with any of the above tasks? No Instrumental Activities of Daily Living (IADLs) Uses the telephone without help Gets to places out of walking distance without help Goes shopping for groceries without help Prepares own meals without help Does own minor home maintenance without help Does own laundry without help Does own housework without help Manages own money without help Currently takes medications? Yes Takes medication without help End-of-Life Planning Discussed advance directive Yes Advance directive on file Discussed wishes expressed in advance directive agreed to following patient's wishes Fall Risk: Fall History Have you had any falls with injury in the past year? No . Have you had two or more falls in the past year? No . Fall Risk Assessment: No falls in the past year . HRA filled out by the patient, reviewed by Provider and scanned. [facility] Medical History Mitral regurgitation Cataract of both eyes Anticoagulated on Coumadin Petechial rash Petechial rash Enlarged RV (right ventricle) Tricuspid regurgitation Alzheimer's disease Irritable bowel syndrome (IBS) Osteoporosis Chronic kidney disease (CKD), stage III (moderate) Pure hypercholesterolemia Hypothyroidism Chronic atrial fibrillation CHF due to valvular disease Surgical History Status post implantation of mitral valve leaflet clip (~06/16/20) Hx of tubal ligation Hx of left mastectomy Family History Father Hx of blood clots Mother Hx of blood clots Social History (Reviewed 04/07/25 @ 10:09 by JACEK Smith Household Members: Other Household Members Other:: Sherwin Johnson Housing: House Do you presently have visiting nurse or other home services: No Alcohol intake: never Patient Tobacco Use Status: Never used Tobacco e-Cigarette/Vaping Use: Never Used Second Hand Smoke Exposure: No Advance Directives Date on File: 08/11/22 service: No Current occupational status: retired Cognitive needs: No Hearing needs: No Vision needs: Yes Questionnaire Medicare Wellness Checkup What is your age?: 79 or older What gender do you identify with?: female During the past 4 weeks, how much have you been bothered by emotional problems such as feeling anxious, depressed, irritable, sad or downhearted, and blue?: not at all During the past 4 weeks, has your physical & emotional health limited your social activities with family, friends, neighbors, or groups?: moderately During the past 4 weeks, how much bodily pain have you generally had?: no pain During the past 4 weeks, was someone available to help you if you needed & wanted help?: yes, as much as I wanted During the past 4 weeks, what was the hardest physical activity you could do for at least 2 minutes?: light Can you get to places out of walking distance without help? (For eg., can you travel alone on buses, taxis or drive your car?): No Can you go shopping for groceries or clothes without someone's help?: No Can you prepare your own meals?: No Can you do your housework without help?: No Because of any health problems, do you need the help of another person with your personal care needs such as eating, bathing, dressing or getting around the house?: No Can you handle your own money without help?: No During the past 4 weeks, how would you rate your health in general?: fair During the past 4 weeks how have things been going for you?: pretty well Are you having difficulties driving your car?: not applicable, I don't use a car Do you always fasten your seat belt when you are in a car?: yes, usually During past 4 weeks, have you been bothered by the following: never: Sexual problems?, Teeth or denture problems? and Problems using the telephone?, seldom: Falling or dizzy when standing up, sometimes: Trouble eating well? and often: Tiredness or fatigue? Have you fallen 2 or more times in the past year?: Yes Are you afraid of falling?: Yes Are you a smoker?: no During the past 4 weeks, how many drinks of wine, beer, or other alcoholic beverages did you have?: no alcohol at all Do you exercise for about 20 minutes 3 or more times a week?: no, I usually do not exercise this much Have you been given information to help with the following?: yes: Hazards in your house that might hurt you? and yes: Keeping track of your medications? How often do you have trouble taking medicines the way you have been told to take them?: I always take medicine as prescribed (with help ) How confident are you that you can control & manage most of your health problems?: somewhat confident What is your race?: White Mini Mental State Exam (MMSE) Orientation Where are we (state) (county) (town or city) (hospital) (floor)?: state, town or city, hospital/clinic and floor Score Score: 4 Activity of Daily Living Bathing - sponge bath, tub bath or shower: receives no assistance (gets in/out by self, if usual bathing means Dressing - getting clothes from closets & drawers, including inner/outer garments & fasteners.: gets clothes & gets completely dressed without help Toileting - going to the 'toilet room' for urine/bowel elimination & cleaning self/arranging clothes: goes to toilet room, cleans self, arranges clothes without help Transfer: moves in & out of bed and chair without help (may use support object) Continence: controls urination/bowel movements completely by self Feeding: feeds self without help Total Score: 0 Information obtained from: patient Using telephone: independent Traveling: dependent Shopping: needs assistance Preparing meals: needs assistance Housework: needs assistance Taking medicine: needs assistance Managing money: dependent PHQ-9 Over the last 2 weeks, how often have you been bothered by any of the following problems? 1. Little interest or pleasure in doing things: not at all 2. Feeling down, depressed, or hopeless: not at all 3. Trouble falling or staying asleep, or sleeping too much: several days 4. Feeling tired or having little energy: nearly every day 5. Poor appetite or overeating: more than half the days 6. Feeling bad about yourself - or that you are a failure or have let yourself or your family down: not at all 7. Trouble concentrating on things, such as reading the newspaper or watching television: nearly every day 8. Moving or speaking so slowly that other people could have noticed. Or the opposite - being so fidgety or restless that you have been moving around a lot more than usual: not at all 9. Thoughts that you would be better off or of hurting yourself in some way: not at all Total score: 9 Depression Screening Interpretation: Positive Depression Screening Follow-up: Follow-up Visit Requested Depression Screening Done: Yes [id number] - PHQ-9 Billing: Yes Source: Developed by Drs. Freedom Yung, Radha Herrera, Adi Anand and colleagues, with an educational alejandro from [employer]. PHQ-2/PHQ-9 PHQ-2 Over the last 2 weeks, how often have you been bothered by any of the following problems? 1. Little interest or pleasure in doing things: not at all 2. Feeling down, depressed, or hopeless: not at all Total score: 0 If score is 3 or greater, continue 3. Trouble falling or staying asleep, or sleeping too much: several days 4. Feeling tired or having little energy: nearly every day 5. Poor appetite or overeating: more than half the days 6. Feeling bad about yourself - or that you are a failure or have let yourself or your family down: not at all 7. Trouble concentrating on things, such as reading the newspaper or watching television: nearly every day 8. Moving or speaking so slowly that other people could have noticed. Or the opposite - being so fidgety or restless that you have been moving around a lot more than usual: not at all 9. Thoughts that you would be better off or of hurting yourself in some way: not at all Total score: 9 0-4 None-Minimal, 5-9 Mild, 10-14 Moderate, 15-19 Moderately Severe, 20-27 Severe Source: Developed by Drs. Freedom Yung, Radha Herrera, Adi Anand and colleagues, with an educational alejandro from [employer]. Thrive Questionnaire Date Thrive assessed: 08/12/25 I am a: Parent/Caregiver What is your living situation today?: I have a steady place to live Within the past 12 months, did the food you bought not last and you didn't have the money to get more?: Never true Within the past 12 months, did you worry whether your food would run out before you got money to buy more?: Never true Do you have trouble paying for medicines?: No Do you have trouble getting transportation to medical appointments?: No Do you have trouble paying your heating and electricity bill?: No Do you have trouble taking care of your child, family member or friend?: No Do you have trouble with day-to-day activities such as bathing, preparing meals, shopping, managing finances, etc.?: Yes Are you currently unemployed and looking for a job?: No Are you interested in more education?: No Please select the resources that you would like help with: None Currently or been in a relationship where the following occur: No concerns reported THRIVE Score: 0 ALTON-7 AMB Questionnaire ALTON-7 Date ALTON - 7 assessed: 04/07/25 Feeling nervous, anxious, or on edge: 0 = Not at all Not being able to stop or control worryin = Not at all Worrying too much about different things: 0 = Not at all Trouble relaxin = Not at all Being so restless that it is hard to sit still: 0 = Not at all Becoming easily annoyed or irritable: 1 = Several days Feeling afraid as if something awful might happen: 0 = Not at all Total ALTON-7 score (0-4 normal; 5-9 mild; 10-14 moderate; 15-21 severe): 1 Source: Developed by Drs. Freedom Yung, Radha Herrera, Adi Anand and colleagues, with an educational alejandro from [employer]. Review of Systems Const Denies chills, Denies difficulty sleeping, Reports fatigue (improving), Denies fever(s) and Denies headache(s) ENT Denies dysphagia, Denies dizziness, Denies otalgia, Denies headache(s), Denies neck pain, Denies odynophagia and Denies sore throat Card Denies chest pain, Denies palpitations and Denies dyspnea Resp Denies chest congestion, Denies cough and Denies dyspnea GI Denies abdominal pain, Denies constipation, Denies dysphagia, Denies heartburn, Denies diarrhea, Denies nausea, Denies odynophagia and Denies vomiting Denies difficulty voiding, Denies nocturia, Denies dysuria and Denies urinary urgency Musc Denies back pain and Denies neck pain Skin/Breast Denies rash Neuro Reports confusion, Denies dizziness, Denies headache(s) and Reports memory loss (stable) Psych Reports confusion and Reports memory loss (stable) Endo Reports fatigue (improving) and Denies palpitations Physical Exam Vital Signs: Last Vital Signs BP 122/80 04/07/25 10:08 Oxygen Delivery Method Room Air 04/07/25 10:08 BMI result Body Mass Index 15.5 IPPE/AWV: Balance Romberg Yes . Tandem walk Yes . Walk and Turn Yes . Rise from sit to stand Yes . Vision Corrective lens No Vision screen pass Hearing Whisper test pass . Urinary incont. no. EKG Not clinically necessary. Const General: no acute distress and confusion Orientation/consciousness: oriented to person, oriented to place (partially) and confusion HEENT Ears: TM's normal bilaterally and EAC's normal Throat: Yes posterior oropharynx normal and Yes tonsils normal (no TP congestion noted) Neck Neck: Yes supple and No lymphadenopathy Thyroid: Thyroid normal Resp Auscultation: clear to auscultation bilaterally, no rales and no wheezes Cardio Rate: regular rate Rhythm: abnormal rhythm irregularly irregular Heart sounds: Murmur heart sound present systolic III/, at the apex and at the left sternal border GI Palpation (GI): Soft to palpation and nontender Auscultation: normal bowel sounds General: Yes no CVA tenderness Back/Spine/Pelvis Back: no CVA tenderness Thoracic/Lumbar Spine: No lumbar spinal tenderness Skin Rashes: no rashes Neuro General: oriented to person, oriented to place (partially) and confusion Extrem General: Yes no clubbing, cyanosis or edema Results Reviewed Results Reviewed: Laboratory Tests 03/30/25 03/30/25 07:00 09:52 WBC 5.0 Hgb 12.7 Hct 40.4 Plt Count 186 Sodium 142 Potassium 5.0 Creatinine 1.68 H Estimated GFR 29 Fasting Glucose 100 H Calcium 9.1 AST 45 H ALT 26 Triglycerides 99 Cholesterol 188 LDL Cholesterol, Calc 103 H HDL Cholesterol 66 25-OH Vitamin D Total 87.8 TSH 2.57 Free T4 1.41 Ur Specific [place] 1.025 Urine Protein 100 (2+) H Urine Glucose (UA) Negative Urine Blood Moderate (2+) H Urine Nitrite Negative Ur Leukocyte Esterase Small (1+) H Granular Casts Present Assessment & Plan Assessment & Plan (1) Medicare annual wellness visit, subsequent: Code(s): Z00.00 - Encounter for general adult medical examination without abnormal findings Plan: HRA form discussed/reviewed and completed with patient and her daughter; form will be scanned into patient's chart YOBANI updated (2) Hydronephrosis: Comment: moderate hydronephrosis of the left kidney Code(s): N13.30 - Unspecified hydronephrosis Qualifiers: Hydronephrosis type: unspecified Qualified Code(s): N13.30 - Unspecified hydronephrosis Plan: (+) moderate hydronephrosis of the left kidney seen on abdominal/pelvic CT done at [facility] [place] in November 2024 She was seen by urology back on 01/20/2025 and as she did not have any acute symptoms at the time, recommended conservative management and yearly follow up/surveillance As her recent labs showed findings of a significant decline in her renal function as well as the presence if granular casts in her urinalysis, will send her for renal US PADMINI for further evaluation Will also have patient recheck her labs (renal function) in 1 month for follow up (3) Chronic atrial fibrillation: Code(s): I48.20 - Chronic atrial fibrillation, unspecified Plan: Patient currently remains rate-controlled on Metoprolol ER 100 mg QD (Rx refilled) Continue long-term anticoagulation with Apixaban 2.5 mg BID (4) CHF due to valvular disease: Code(s): I50.9 - Heart failure, unspecified; I38 - Endocarditis, valve unspecified Plan: Her symptoms have improved a lot since her MitraClip procedure back in May 2020 Reinforced fluid restriction Continue Furosemide 20 mg QD PRN but with her recent renal function decline, have advised her to take this only when really needed for now Echocardiogram done a few years ago (prior to her MitraClip procedure) showed ejection fraction to be between 60-65% but with severe mitral regurgitation, severe tricuspid regurgitation and biatrial enlargement Repeat echocardiogram done in July 2023 revealed normal left ventricular systolic function, with the visually estimated ejection fraction to be between 55-60%. There is severe biatrial enlargement and atrial septal defect with left to right shunt and gradient of 17mmHg. There is also mild to moderate mitral valve regurgitation. Mitraclip is in place. Mean gradient of 7mmHg at 70/min. There is moderate tricuspid valve regurgitation. Mild pulmonary hypertension is present Her most recent echocardiogram done last month (October 2024) revealed (+) low normal left ventricular systolic function, with the calculated ejection fraction at 54% by the biplane method. The right ventricular cavity size is severely increased, with severe biatrial enlargement and (+) atrial septal defect with [id number] shunting is noted by color doppler. There is mild to moderate mitral valve regurgitation, with a Mitraclip in place. There is severe tricuspid valve regurgitation as well, with severe pulmonary hypertension now present Follow up with cardiology as scheduled (5) Mitral regurgitation: Comment: Status post MitraClip Code(s): I34.0 - Nonrheumatic mitral (valve) insufficiency Qualifiers: Cardiac valve disease etiology: nonrheumatic Qualified Code(s): I34.0 - Nonrheumatic mitral (valve) insufficiency Plan: S/P MitraClip procedure at [facility] on 06/16/2020, followed by cardiac rehab, which patient states helped a lot Follow-up with cardiology as scheduled (6) Hypothyroidism: Code(s): E03.9 - Hypothyroidism, unspecified Qualifiers: Hypothyroidism type: acquired Qualified Code(s): E03.9 - Hypothyroidism, unspecified Plan: Patient's TFTs were normal on her labs done last week Continue Levothyroxine 75 mcg once a day - Rx refilled Will recheck her TFTs in 4 months for follow up (7) Pure hypercholesterolemia: Code(s): E78.00 - Pure hypercholesterolemia, unspecified Plan: Results of her labs done last week reviewed and discussed with patient - her cholesterol numbers are acceptable on her recent labs Reinforced low cholesterol diet Patient was on Simvastatin in the past but this was discontinued during her hospitalization earlier this year and she prefers not to go back on it if possible Will continue to monitor her fasting lipid profile and labs regularly and recheck her labs and fasting lipids in 4 months for follow-up (8) Chronic kidney disease (CKD), stage III (moderate): Code(s): N18.30 - Chronic kidney disease, stage 3 unspecified Qualifiers: Chronic kidney disease stage 3 subtype: stage 3a (GFR 45-59) Qualified Code(s): N18.31 - Chronic kidney disease, stage 3a Plan: Patient suffered JOLYNN with her hospital admission back in November 2024 but her renal function have mostly subsequently recovered but it seems to have declined again on her labs done last week - may be prerenal in etiology Will have patient recheck her renal function in a month for follow up and will continue to monitor her renal function regularly (9) Osteoporosis: Code(s): M81.0 - Age-related osteoporosis without current pathological fracture Qualifiers: Osteoporosis type: age-related Presence of current pathological fracture: without current pathological fracture Qualified Code(s): M81.0 - Age-related osteoporosis without current pathological fracture Plan: Her repeat BMD back in July 2016 showed a -16% decline in BMD compared to her numbers in 2013 Patient was referred to and seen by Endocrinology recently and recommended starting on Prolia but patient decided against taking any Rx due to their potential side effects Continue Caltrate 600+ D tablet chewable, 600-400 mg - unit 1 tablet twice a day Her most recent BMD done in 01/2021 revealed (+) osteoporosis based on the lowest T-score value of -3.2 in the lumbar spine Her BMD here in both the AP spine and femur have declined by 10% or more from her previous BMD In 2016 Follow-up with endocrinology as scheduled (10) Irritable bowel syndrome (IBS): Code(s): K58.9 - Irritable bowel syndrome, unspecified Qualifiers: Irritable bowel syndrome type: unspecified Qualified Code(s): K58.9 - Irritable bowel syndrome without diarrhea Plan: Patient has been taking Align (as recommended by Dr. Tolliver) and states that the medication helps a lot States that Dr. Tolliver recommended no further intervention -? last colonoscopy in 2008 was normal Follow up with GI (Dr. Tolliver)? as scheduled (11) Elevated LFTs: Code(s): R79.89 - Other specified abnormal findings of blood chemistry Plan: Patient's serum AST was again slightly elevated on her recent labs; ALT was normal She currently denies any acute GI symptoms Will just continue to monitor her LFTs for now and if her LFT elevation persists or gets worse, will consider sending her for abdominal US for further evaluation Patient is advised to call PADMINI if she starts experiencing any unusual and persistent GI symptoms at any time (12) Alzheimer's disease: Code(s): G30.9 - Alzheimer's disease, unspecified; F02.80 - Dementia in other diseases classified elsewhere, unspecified severity, without behavioral disturbance, psychotic disturbance, mood disturbance, and anxiety Plan: Continue Donepezil 10 mg once a day at bedtime Follow-up with Neurology as scheduled Plan Follow up in 4 months Orders: Orders Comprehensive Met. Panel 1 Month N28.9 - Disorder of kidney and ureter, unspecified Microalbumin, Random (w Creat) 1 Month N28.9 - Disorder of kidney and ureter, unspecified Complete Blood Count Auto Diff 4 Months D64.9 - Anemia, unspecified Comprehensive [place]. Panel Fast 4 Months E78.00 - Pure hypercholesterolemia, unspecified Lipid Panel 4 Months E78.00 - Pure hypercholesterolemia, unspecified Free T4 (Free Thyroxine) 4 Months E03.9 - Hypothyroidism, unspecified UA CC w/rflx Micro + Cult 4 Months R30.0 - Dysuria Vitamin B12 and Folate 4 Months E53.8 - Deficiency of other specified B group vitamins Vitamin D 25-OH Total 4 Months E55.9 - Vitamin D deficiency, unspecified UA CC w/rflx Micro + Cult 1 Month N28.9 - Disorder of kidney and ureter, unspecified US renal BI Today N13.30 - Unspecified hydronephrosis, N17.9 - Acute kidney failure, unspecified, N18.31 - Chronic kidney disease, stage 3a Microalbumin, Random (w Creat) 4 Months E11.9 - Type 2 diabetes mellitus without complications Thyroid Stimulating Hormone 4 Months E03.9 - Hypothyroidism, unspecified B Type Natriuretic Peptide 4 Months I50.9 - Heart failure, unspecified Medications: Refilled levothyroxine 75 mcg PO DAILY@0600 90 tabs 3RF 90 days metoprolol succinate ER 100 mg PO DAILY 90 tabs 3RF 90 days I48.20 - Chronic atrial fibrillation, unspecified Quality Reporting (2019) Depression/Bipolar (159/160/161/177) PHQ-9: Total score: 9 Coding Level of Care Code Medicare Subsequent (G0439) Est Pt Level 4 (41774) Diagnoses Medicare annual wellness visit, subsequent Z00.00 Hydronephrosis, unspecified hydronephrosis type N13.30 Hydronephrosis type: unspecified Chronic atrial fibrillation I48.20 CHF due to valvular disease I50.9; I38 Nonrheumatic mitral valve regurgitation I34.0 Cardiac valve disease etiology: nonrheumatic Acquired hypothyroidism E03.9 Hypothyroidism type: acquired Pure hypercholesterolemia E78.00 Stage 3a chronic kidney disease N18.31 Chronic kidney disease stage 3 subtype: stage 3a (GFR 45-59) Age-related osteoporosis without current pathological fracture M81.0 Osteoporosis type: age-related Presence of current pathological fracture: without current pathological fracture Irritable bowel syndrome, unspecified type K58.9 Irritable bowel syndrome type: unspecified Elevated LFTs R79.89 Alzheimer's disease G30.9; F02.80 CPT Codes Advance Care Planning - Time spent: 1-15 minutes, on File ([id number]) Advance Care Planning - Advance Care Planning discussion: On file, no changes ([id number]) Additional Codes PHQ-9 - [id number] - PHQ-9 Billing: Yes ([id number]) Advance Care Planning Advance Care Planning discussion: On file, no changes (has both HCP and MOLST forms on file) Date of discussion: 04/07/25 Who was present: patient, HCP, PCP Time spent: 1-15 minutes, on File
--- OUTSIDE RECORDS SUMMARY | 2025-04-07 10:32 | XMS_ITS | Patient Health Record ---
Author Organization [facility] Address [address] [place] [address] Care Team Providers Care Milieu Manager Name Role Phone Hitesh CRENSHAW, Darrian Primary Care Provider Alex Acosta Jr Unavailable Allergies Allergen (clinical drug ingredient) Drug/Non Drug [...] Problem Status W/U Status Risk Notes Problem [id number] Irritable bowel syndrome without diarrhea (K58.9) Active confirmed Plan Of Treatment No Information Insurance Providers Payer Name Payer Address Payer Phone Subscriber Number Group Number Insured Name Patient Relationship to Insured Coverage Start Date Coverage End Date [facility] [address] [place] [address] [phone] [id number] JAY MENDOZA Self - patient is the insured Medical (General) History Medical History History ICD Code colonoscopy 12-25-2008 colon polyp elevated cholesterol hypothyroidism mitral valve prolapse osteopenia breast cancer with mastectomy Denies [place],DM,CVA,Lung disease,renal dise ase Surgical History Surgery Date(Month/Year) tubal ligation 1970 mastectomy 1998 right knee arthroscopy 1994
== END 2025-04-07 11:22 | disposition home or self-care (01) ==
LOC: HO.HMCH 09:48
PROVIDERS: PCP Internal Medicine; Visit Provider Internal Medicine
DX: Z00.00 Encounter for general adult medical examination without abnormal findings (principal); I48.20 Chronic atrial fibrillation, unspecified; I50.9 Heart failure, unspecified; N18.31 Chronic kidney disease, stage 3a; G30.9 Alzheimer's disease, unspecified; F02.80 Dementia in other diseases classified elsewhere, unspecified severity, without behavioral disturbance, psychotic disturbance, mood disturbance, and anxiety; N13.30 Unspecified hydronephrosis; I38 Endocarditis, valve unspecified; I34.0 Nonrheumatic mitral (valve) insufficiency; E03.9 Hypothyroidism, unspecified; E78.00 Pure hypercholesterolemia, unspecified; M81.0 Age-related osteoporosis without current pathological fracture

== ENCOUNTER → 2025-04-07 09:47 | Outpatient (BNVA) | payer MEDICARE, SELFPAY | PROVIDERS: PCP Internal Medicine; Visit Provider Internal Medicine | DX: Z00.00 Encounter for general adult medical examination without abnormal findings (principal); N13.30 Unspecified hydronephrosis; I48.20 Chronic atrial fibrillation, unspecified; I50.9 Heart failure, unspecified; I34.0 Nonrheumatic mitral (valve) insufficiency; E03.9 Hypothyroidism, unspecified; E78.00 Pure hypercholesterolemia, unspecified; N18.30 Chronic kidney disease, stage 3 unspecified; N18.31 Chronic kidney disease, stage 3a; M81.0 Age-related osteoporosis without current pathological fracture; K58.9 Irritable bowel syndrome, unspecified; R79.89 Other specified abnormal findings of blood chemistry; G30.9 Alzheimer's disease, unspecified; F02.80 Dementia in other diseases classified elsewhere, unspecified severity, without behavioral disturbance, psychotic disturbance, mood disturbance, and anxiety | CPT/HCPCS: 96127; 99212 ==

== ENCOUNTER 2025-04-08 09:08 | Outpatient (AMB) | payer MEDICARE, SELFPAY ==
--- OUTSIDE RECORDS SUMMARY | 2024-10-17 10:00 | XMS_ITS ---
Author Organization [facility] Address [address] [place] [address] Care Team Providers Care Chair Inspector Name Role Phone Hitesh CRENSHAW [place] Primary Care Provider Patti Arellano Unavailable [phone] Allergies Allergen (clinical drug ingredient) Drug/Non Drug [...] Active Encounters Encounter Location Date Provider Diagnosis [facility] [address] [place] [address] 10/17/2024 Patti Andrade Plan Of Treatment Next Appt Details Provider Name:Patti ponce, 07/07/2025 10:00:00 AM, [address] [place], [address], Progress Notes * Sandra HERRERA ADOB: [birth year] (84 yo F)Acc No.[id number]:10/17/2024 Progress Note Patient: Sandra CHAMPAGNE Provider: Anton Andrade DPM :1940 A ge:84 Y S ex:Female Date:10/17/2024 Address:[address] [place] [address] [place] Pcp:Darrian Proctor MD Subjective: * Chief Complaints: [...] 10/17/2024 Generated for Bella interiano/Svetlana/Ozitting on: 0 04/08/2025 09:32 AM EDT
--- NOTE | 2025-04-08 09:25 | MHC.OFFVIS ---
Vital Signs 04/08/25 09:25 Height 5 ft 1 in Intake Visit Reasons: 6 month f/u Accompanied by: Daughter Allergies Sulfa (Sulfonamide Antibiotics) (Sulfa (Sulfonamides)) Allergy (Mild, Verified 04/08/25 09:28) RASH ciprofloxacin (Cipro) Allergy (Unknown, Verified 04/08/25 09:28) rash scallops Allergy (Unknown, Verified 04/08/25 09:28) Sick to the stomach Medication List - Last Reconciled 04/08/25 by Jacinta Schwab CNP apixaban (Eliquis) 2.5 mg PO BID 90 days cholecalciferol (vitamin D3) 25 mcg PO DAILY 90 days donepezil 10 mg PO BEDTIME furosemide 20 mg PO DAILY PRN levothyroxine 75 mcg PO DAILY@0600 90 days metoprolol succinate ER 100 mg PO DAILY 90 days vitamin B complex 1 tab PO DAILY HPI Comments Details: 84 y/o woman with dementia. She was doing okay. Memory may be declining some, short-term memory was not so good and more forgetful. She had one fall at end of 12/2024 with skin tear to R forearm and [place] [facility] [place] No further falls. She was still doing some housework and cleaning. Mood was okay. Sleep was okay. [facility] Medical History Mitral regurgitation Cataract of both eyes Anticoagulated on Coumadin Petechial rash Petechial rash Enlarged RV (right ventricle) Tricuspid regurgitation Alzheimer's disease Irritable bowel syndrome (IBS) Osteoporosis Chronic kidney disease (CKD), stage III (moderate) Pure hypercholesterolemia Hypothyroidism Chronic atrial fibrillation CHF due to valvular disease Surgical History Status post implantation of mitral valve leaflet clip (~06/16/20) Hx of tubal ligation Hx of left mastectomy Family History Father Hx of blood clots Mother Hx of blood clots Social History Household Members: Other Household Members Other:: Son Alex Housing: House Do you presently have visiting nurse or other home services: No Alcohol intake: never Patient Tobacco Use Status: Never used Tobacco e-Cigarette/Vaping Use: Never Used Second Hand Smoke Exposure: No Advance Directives Date on File: 08/11/22 service: No Current occupational status: retired Cognitive needs: No Hearing needs: No Vision needs: Yes Review of Systems Const Denies chills, Denies daytime sleepiness, Denies difficulty sleeping, Denies fatigue, Denies fever(s), Denies frequent falls, Denies headache(s), Denies increased appetite, Denies poor appetite, Denies snoring, Denies weakness, Denies weight gain and Denies weight loss Eyes Denies loss of vision ENT Denies vertigo, Denies dizziness and Denies headache(s) Card Denies chest pain at rest, Denies chest pain with activity, Denies syncope, Denies leg edema and Denies palpitations Resp Denies snoring GI Denies constipation, Denies heartburn, Denies diarrhea and Denies nausea Denies urinary frequency, Denies urinary incontinence and Denies urinary urgency Musc Denies abnormal gait, Denies numbness and Denies tingling Skin/Breast Denies dry skin and Denies rash Neuro Denies abnormal gait, Denies vertigo, Denies dizziness, Denies syncope, Denies frequent falls, Denies headache(s), Denies lack of coordination, Denies loss of vision, Reports memory loss, Denies numbness, Denies restless legs, Denies seizure-like activity, Denies tingling, Denies paresthesias, Denies tremor(s) and Denies weakness Psych Denies anxiety, Denies depression, Denies auditory hallucinations, Reports memory loss, Denies visual hallucinations and Denies suicidal ideation Endo Denies fatigue and Denies palpitations Physical Exam Const Other: General Appearance:? normal, in no acute distress. Skin:? no rashes, no significant birthmarks. Heart:? S1, S2 normal, no murmurs. Lungs:? clear anteriorly and posteriorly. Extremities:? no edema. Psych:? alert, cooperative with exam. Neuro Other: Mental Status:?Normal attention and affect. She was able to name her 8 children in order from oldest to youngest. She was unable to tell me the year, month, or season.? Cranial Nerves:?Pupils are equal, round and reactive to light. External occular muscles are intact. Visual sanchez are full. Face is symmetrical. Facial sensations are normal. Tongue is midline. Palate elevates symmetrically. Shoulder shrugging is normal. Hearing to bedside conversation is slightly decreased. Sensory Exam:?....? Coordination:?No ataxia,?no titubation.? Gait Exam: In wheelchair. Cerebellar Signs:?[id number] is okay. Extrapyramidal System:?No tremor, rigidity with normal facial expressions.? Pronator Drift:?Not present.? Involuntary Movements:?Mild b/l hand tremor. Speech:?Normal.? Assessment & Plan Assessment & Plan (1) Alzheimer's disease: Code(s): G30.9 - Alzheimer's disease, unspecified; F02.80 - Dementia in other diseases classified elsewhere, unspecified severity, without behavioral disturbance, psychotic disturbance, mood disturbance, and anxiety Category: Medical Plan: Continue donepezil 10mg 1 tablet at bedtime. She was here with her daughter. They were educated on this condition and its progression. Stay physically and socially active. Medications: Changed From donepezil 10 mg PO BEDTIME To donepezil 10 mg PO BEDTIME 90 tabs 1RF 90 days Coding Level of Care Code Est Pt Level 4 (37857) Diagnoses Alzheimer's disease G30.9; F02.80
== END 2025-04-08 09:50 | disposition home or self-care (01) ==
LOC: HO.HSM 09:09
PROVIDERS: PCP Internal Medicine; Referring Provider Internal Medicine; Visit Provider Registered Nurse
DX: G30.9 Alzheimer's disease, unspecified (principal); F02.80 Dementia in other diseases classified elsewhere, unspecified severity, without behavioral disturbance, psychotic disturbance, mood disturbance, and anxiety
CPT/HCPCS: 99214

== ENCOUNTER → 2025-04-08 09:08 | Outpatient (BNVA) | payer MEDICARE, SELFPAY | PROVIDERS: PCP Internal Medicine; Referring Provider Internal Medicine; Visit Provider Registered Nurse | DX: G30.9 Alzheimer's disease, unspecified (principal); F02.80 Dementia in other diseases classified elsewhere, unspecified severity, without behavioral disturbance, psychotic disturbance, mood disturbance, and anxiety | CPT/HCPCS: 99212 ==

== ENCOUNTER 2025-05-11 10:13 | Outpatient (REF) | payer MEDICARE, SELFPAY ==
--- OUTSIDE RECORDS SUMMARY | 2024-10-17 10:00 | XMS_ITS ---
Author Organization [facility] Address [address] [place] [address] Care Team Providers Care Assembling Inspector Name Role Phone Hitesh CRENSHAW [place] Primary Care Provider Patti Arellano Unavailable [phone] Allergies Allergen (clinical drug ingredient) Drug/Non Drug [...] Active Encounters Encounter Location Date Provider Diagnosis [facility] [address] [place] [address] 10/17/2024 Patti Andrade Plan Of Treatment Next Appt Details Provider Name:Patti ponce, 07/07/2025 10:00:00 AM, [address] [place], [address], Progress Notes * Sandra HERRERA ADOB: [birth year] (85 yo F)Acc No.[id number]:10/17/2024 Progress Note Patient: Sandra CHAMPAGNE Provider: Anton Andrade DPM :1940 A ge:84 Y S ex:Female Date:10/17/2024 Address:[address] [place] [address] [place] Pcp:Darrian Proctor MD Subjective: * Chief Complaints: [...] 10/17/2024 Generated for Bella interiano/Svetlana/Ozitting on: 0 05/11/2025 12:57 PM EDT
--- OUTSIDE RECORDS SUMMARY | 2025-05-11 12:58 | XMS_ITS | Patient Health Record ---
Author Organization [facility] Address [address] [place] [address] Care Team Providers Care City Clerk Name Role Phone Darrian Proctor MD Primary Care Provider Unareno ilPatti Donald Unavailable [phone] Allergies Allergen (clinical drug ingredient) Drug/Non Drug [...] Referring Provider Last Name Hitesh [facility] Referred Provider Patti Andrade Referred Address [address] [facility] [facility],[place], [place],[address], Referred Provider Specialty Podiatry Referral Priority Routine Medications Medication SIG (Take, Route, Frequency, Duration) Notes Start Date End Date Status Vitamin C Active Eliquis 2.5 MG as directed Orally Active B-Complex Active Vitamin D Active Furosemide 20 MG Oral; Duration: 90 Days Active Levothyroxine Sodium 75 MCG Oral; Duration: 90 Days Active Metoprolol Succinate ER 100 MG Oral; Duration: 90 Days Active Donepezil HCl 10 MG Oral; Duration: 90 Active Warfarin Sodium 10 MG 1 tablet Orally On ce a day; Duration: 48 days Not-Takin g Immunizations Vaccine Route Administration Date Status Comme nts Influenza Unknown 04/27/2024 Administered Social History Tobacco Use: Social History Observation [...] Are you an other tobacco user? No AUDIT-C (Standard) Question Answer Notes Did you have a drink containing alcohol in the p ast year? No Points 0 Interpretation Negative Problems Problem Type SNOMED Code ICD Code Onset Dates Problem Status W/U Status Risk Notes Problem Acquired hammer toe of right foot ([id number]) Other hammer toe(s) (acquired), right foot (M20.41) Active confirmed Problem Acquired hammer toe of left foot ([id number]) Other hammer toe(s) (acquired), left foot (M20.42) Active confirmed Problem Bilateral atherosclerosis of arteries of lower limbs (disorder) ([id number] ) Atherosclerosis of [place] artery of both lower extremities, with unspecified presence of clinical manifestation (I70.203) Active confirmed Vital Signs Blood pressure diastolic 75 mm Hg 04/01/2025 Height 5 ft 2 in in 04/01/2025 Blood pressure systolic 122 mm Hg 04/01/2025 Weight 78 lbs 04/01/2025 BMI 14.26 kg/m2 04/01/2025 Encounters Encounter Location Date Provider Diagnosis [facility] [address] [address] 05/16/2024 Patti Andrade Atherosclerosis of [place] artery of both lower extremities, with unspecified presence of clinical manifestation I70.203 ; Tinea unguium B35.1 ; Pain in right toe(s) M79.674 and Pain in left toe(s) M79.[address] [facility] [address] 08/01/2024 Patti Perica Atherosclerosis of [place] artery of both lower extremities, with unspecified presence of clinical manifestation I70.203 ; Tinea unguium B35.1 ; Pain in right toe(s) M79.674 and Pain in left toe(s) M79.[address] [address] 12/31/2024 Patti Perica Atherosclerosis of [place] artery of both lower extremities, with unspecified presence of clinical manifestation I70.203 ; Tinea unguium B35.1 ; Pain in right toe(s) M79.674 ; Pain in left toe(s) M79.675 and Ingrown nail L60.[address] [address] 04/01/2025 Patti Perica Atherosclerosis of [place] artery of both lower extremities, with unspecified presence of clinical manifestation I70.203 ; Tinea unguium B35.1 ; Pain in right toe(s) M79.674 and Pain in left toe(s) M79.675 Assessments Encounter Date Diagnosis (ICD Code) Assessment Notes Treatment Notes Treatment Clinical Notes Section Notes 05/16/2024 Tinea unguium (ICD-10 - B35.1) 05/16/2024 Atherosclerosis of [place] artery of both lower extremities, with unspecified presence of clinical manifestation (ICD-10 - I70.203) 12/31/2024 Tinea unguium (ICD-10 - B35.1) 12/31/2024 Atherosclerosis of [place] artery of both lower extremities, with unspecified presence of clinical manifestation (ICD-10 - I70.203) 04/01/2025 Tinea unguium (ICD-10 - B35.1) 04/01/2025 Atherosclerosis of [place] artery of both lower extremities, with unspecified presence of clinical manifestation (ICD-10 - I70.203) 08/01/2024 Tinea unguium (ICD-10 - B35.1) 08/01/2024 Atherosclerosis of [place] artery of both lower extremities, with unspecified presence of clinical manifestation (ICD-10 - I70.203) 08/01/2024 Pain in right toe(s) (ICD-10 - M79.674) 05/16/2024 Pain in right toe(s) (ICD-10 - M79.674) 04/01/2025 Pain in right toe(s) (ICD-10 - M79.674) 12/31/2024 Pain in right toe(s) (ICD-10 - M79.674) 04/01/2025 Pain in left toe(s) (ICD-10 - M79.675) 12/31/2024 Pain in left toe(s) (ICD-10 - M79.675) 05/16/2024 Pain in left toe(s) (ICD-10 - M79.675) 08/01/2024 Pain in left toe(s) (ICD-10 - M79.675) 12/31/2024 Ingrown nail (ICD-10 - L60.0) Plan Of Treatment Next Appt Details Provider Name:Patti ponce, 07/07/2025 10:00:00 AM, [address] [place], [address], Insurance Providers Payer Name Payer Address Payer Phone Subscriber Number Group Number Insured Name Patient Relationship to Insured Coverage Start Date Coverage End Date [facility] Medicare Preferred [address] [place] [address] [phone] [id number] Sandra Herrera Self - patient is the insured Medical (General) History Medical History History ICD Code Cancer covid-19 Dementia Chicken pox thyroid congestive heart failure Surgical History Surgery Date(Month/Year) tubal ligation 1970 mastectomy 1998 torn knee ligament 1994 3 micro clips attached to mitral valve 1 Hospitalization History Reason Date(Month/Year) C- UTI 11/2024 [facility] [place] Right hand infection 05/01-05/04
--- OUTSIDE RECORDS SUMMARY | 2025-05-11 12:58 | XMS_ITS | Patient Health Record ---
Author Organization [facility] Address [address] [place] [address] Care Team Providers Care Reporting Analyst Name Role Phone Hitesh CRENSHAW, Darrian Primary Care Provider Alex Acosta Jr Unavailable [phone] Allergies Allergen (clinical drug ingredient) Drug/Non Drug [...] Problem Status W/U Status Risk Notes Problem [id number] Irritable bowel syndrome without diarrhea (K58.9) Active confirmed Plan Of Treatment No Information Insurance Providers Payer Name Payer Address Payer Phone Subscriber Number Group Number Insured Name Patient Relationship to Insured Coverage Start Date Coverage End Date [facility] [address] [place] [address] [id number] JAY MENDOZA Self - patient is the insured Medical (General) History Medical History History ICD Code colonoscopy 12-25-2008 colon polyp elevated cholesterol hypothyroidism mitral valve prolapse osteopenia breast cancer with mastectomy Denies [place],DM,CVA,Lung disease,renal dise ase Surgical History Surgery Date(Month/Year) tubal ligation 1970 mastectomy 1998 right knee arthroscopy 1994
[2025-05-11 13:51] LABS: Alanine Aminotransferase 27 U/L (0-31); Albumin Level 4.1 g/dL (3.5-5.0); Alkaline Phosphatase 125 U/L (39-117); Anion Gap 13 (12-20); Aspartate Amino Transferase 44 U/L (5-31); Blood Urea Nitrogen 39 mg/dL (9-16); Calcium 9.1 mg/dL (8.4-10.2); Carbon Dioxide 28 mmol/L (22-29); Chloride 106 mmol/L (96-108); Estimated Glomerular Filt Rate 28; Potassium 4.5 mmol/L (3.3-5.1); Sodium 142 mmol/L (135-145); Total Protein 7.1 g/dL (6.5-8.0)
== END 2025-05-11 10:14 | disposition home or self-care (01) ==
LOC: HO.HMGCLDS 10:13
PROVIDERS: PCP Internal Medicine; Visit Provider Internal Medicine
DX: N28.9 Disorder of kidney and ureter, unspecified (principal)
CPT/HCPCS: 36415; 80053

== ENCOUNTER 2025-05-14 09:28 | Outpatient (AMB) | payer MEDICARE, SELFPAY ==
--- OUTSIDE RECORDS SUMMARY | 2024-10-17 10:00 | XMS_ITS ---
Author Organization [facility] Address [address] [place] [address] Care Team Providers Care Sales Representative Uniforms Name Role Phone Hitesh CRENSHAW [place] Primary Care Provider Patti Arellano Unavailable [phone] Allergies Allergen (clinical drug ingredient) Drug/Non Drug [...] Active Encounters Encounter Location Date Provider Diagnosis [facility] [address] [place] [address] 10/17/2024 Patti Andrade Plan Of Treatment Next Appt Details Provider Name:Patti ponce, 07/07/2025 10:00:00 AM, [address] [place], [address], Progress Notes * Sandra HERRERA ADOB: [birth year] (85 yo F)Acc No.[id number]:10/17/2024 Progress Note Patient: Sandra CHAMPAGNE Provider: Anton Andrade DPM :1940 A ge:84 Y S ex:Female Date:10/17/2024 Address:[address] [place] [address] [place] Pcp:Darrian Proctor MD Subjective: * Chief Complaints: [...] 10/17/2024 Generated for Bella interiano/Svetlana/Ozitting on: 0 05/14/2025 11:05 AM EDT
--- NOTE | 2025-05-14 09:41 | A.OFFVIS_ITS ---
Vital Signs 05/14/25 09:42 Height 5 ft 1 in Weight 86 lb 13.794 oz BMI 16.4 BP 114/62 Blood Pressure Location Lt brachial Pulse 64 Pulse Source Palpation Intake Visit Reasons: 6 mth f/up Intake Note: 6 Month F/U Accompanied by: Daughter Allergies Sulfa (Sulfonamide Antibiotics) (Sulfa (Sulfonamides)) Allergy (Mild, Verified 05/14/25 09:45) RASH ciprofloxacin (Cipro) Allergy (Unknown, Verified 05/14/25 09:45) rash scallops Allergy (Unknown, Verified 05/14/25 09:45) Sick to the stomach Medication List - Last Reconciled 05/14/25 by Mikey Rodriguez MD apixaban (Eliquis) 2.5 mg PO BID 90 days cholecalciferol (vitamin D3) 25 mcg PO DAILY 90 days donepezil 10 mg PO BEDTIME 90 days furosemide 20 mg PO DAILY PRN levothyroxine 75 mcg PO DAILY@0600 90 days metoprolol succinate ER 100 mg PO DAILY 90 days vitamin B complex 1 tab PO DAILY HPI Comments Details: Sandra comes for follow-up, accompanied by her daughter. She has been overall doing well. She had a fall few months ago but since then has been doing well. She uses Lasix as need be. Recently noted a creatinine to be going up. She is awaiting some further testing from kidney perspective. She has not had any lightheadedness, syncope. Does not drink much fluid. Denies any prolonged palpitation irregular heartbeat. Denies lightheadedness, syncope. No orthopnea, PND, leg edema. Takes Lasix about once a week as per the daughter when the leg is edematous [facility] Medical History Mitral regurgitation Cataract of both eyes Anticoagulated on Coumadin Petechial rash Petechial rash Enlarged RV (right ventricle) Tricuspid regurgitation Alzheimer's disease Irritable bowel syndrome (IBS) Osteoporosis Chronic kidney disease (CKD), stage III (moderate) Pure hypercholesterolemia Hypothyroidism Chronic atrial fibrillation CHF due to valvular disease Surgical History Status post implantation of mitral valve leaflet clip (~06/16/20) Hx of tubal ligation Hx of left mastectomy Family History Father Hx of blood clots Mother Hx of blood clots Social History Household Members: Other Household Members Other:: Son Alex Housing: House Do you presently have visiting nurse or other home services: No Alcohol intake: never Patient Tobacco Use Status: Never used Tobacco e-Cigarette/Vaping Use: Never Used Second Hand Smoke Exposure: No Advance Directives Date on File: 08/11/22 service: No Current occupational status: retired Cognitive needs: No Hearing needs: No Vision needs: Yes Review of Systems Const Denies daytime sleepiness, Denies difficulty sleeping, Denies snoring, Denies stops breathing during sleep and Denies weakness Card Denies chest pain, Denies rapid heart rate, Denies irregular heart rhythm, D enies claudication, Denies leg edema, Denies lightheadedness, Denies palpitations, Denies dyspnea, Denies dyspnea on exertion, Denies orthopnea, Denies paroxysmal nocturnal dyspnea and Denies slow heart rate Resp Denies cough, Denies dyspnea, Denies dyspnea on exertion and Denies snoring GI Reports no additional complaints, Denies hematochezia, Denies change in stool character and Denies dyspepsia Musc Denies abnormal gait, Denies muscle weakness and Denies numbness Neuro Denies abnormal gait, Denies numbness and Denies weakness Endo Denies palpitations Physical Exam Vital Signs: Last Vital Signs Pulse 64 05/14/25 09:42 BP 114/62 05/14/25 09:42 BMI result Body Mass Index 16.4 Const General: cooperative, comfortable, no acute distress, alert, awake, Physically active and well groomed Nutritional Appearance: thin, underweight and other (Frail elderly woman) Orientation/consciousness: patient oriented x3 Limitations: no limitations Neck Neck: Yes trachea midline, Yes supple and Yes no JVD (Prominent V-waves) Resp Effort & Inspection: normal respiratory effort Auscultation: clear to auscultation bilaterally Cardio Jugular venous distension: other (Pulsatile V-wave consistent with severe tricuspid regurgitation) Palpation: abnormal PMI displaced PMI and heave (Right ventricular) Rhythm: abnormal rhythm irregularly irregular Heart sounds: S1 normal heart sound present, S2 normal heart sound present, no click and Murmur heart sound present systolic holo and at the right sternal border GI Auscultation: normal bowel sounds Skin General skin exam: no rashes or lesions noted Neuro General: patient oriented x3 and no focal motor deficits Extrem General: No clubbing, No cyanosis and Yes edema (Right greater than left, both lower extremity in compression stocking) Psych Appearance: grossly normal Assessment & Plan Assessment & Plan (1) CHF due to valvular disease: Code(s): I50.9 - Heart failure, unspecified; I38 - Endocarditis, valve unspecified Category: Medical Plan: Patient with congestive heart failure secondary to prior severe mitral valve regurgitation with normal LV EF but now has severe secondary tricuspid regurgitation that is severe pulmonary hypertension. Clinically appears to be euvolemic. She does have worsening kidney functions which could be related to cardiorenal syndrome. However does not appear to be in florid heart failure at this point time. Continue current. On diuretic use. Advised to maintain adequate hydration. Daily weight monitoring avoidance salt loading was discussed. Symptoms of progressive congestive heart failure were discussed with her and her daughter. Advised to maintain activity level as tolerated. (2) Status post implantation of mitral valve leaflet clip: Onset Date: ~06/16/20 Comment: May 2020. Three Aks TR MitraClips were placed for severe mitral regurgitation with reduction mitral regurgitation to mild range. Procedure was done for primary mitral regurgitation secondary to mitral valve prolapse with congestive heart failure. Code(s): Z98.890 - Other specified postprocedural states; Z95.818 - Presence of other cardiac implants and grafts Category: Surgical Plan: Severe mitral regurgitation status post mitral clip in his done better since then and has had no hospitalization related to progressive heart failure syndrome. This has led to a good outcome in the intermediate term for her. Currently on full oral anticoagulation with Eliquis and will continue the same. SBE prophylaxis as per ACC/aha guidelines. (3) Chronic atrial fibrillation: Code(s): I48.20 - Chronic atrial fibrillation, unspecified Category: Medical Plan: Chronic rate control atrial fibrillation with significant biatrial enlargement. Unlikely to pursue rhythm control approach this preceded even prior to MitraClip placement. Continue metoprolol therapy for rate control. Continue current oral anticoagulation therapy with Eliquis. This may be a concern given her rising creatinine as well as her body weight in her age. This will need to be followed closely. Will follow up in the clinic in 6 months time, sooner PRN. Thank you for allowing me to partake in her care Coding Level of Care Code Est Pt Level 4 (58443) Complex EM visit Add On G2211 Diagnoses CHF due to valvular disease I50.9; I38 Status post implantation of mitral valve leaflet clip Z98.890; Z95.818 Chronic atrial fibrillation I48.20
[2025-05-14 09:42] VITALS: BP 114/62; PULSE 64; BMI 16.4
--- OUTSIDE RECORDS SUMMARY | 2025-05-14 11:06 | XMS_ITS | Patient Health Record ---
Author Organization [facility] Address [address] [place] [address] Care Team Providers Care Clerical Methods Analyst Name Role Phone Hitesh CRENSHAW, Darrian [...] Problem Status W/U Status Risk Notes Problem [id number] Irritable bowel syndrome without diarrhea (K58.9) Active confirmed Plan Of Treatment No Information Insurance Providers Payer Name Payer Address Payer Phone Subscriber Number Group Number Insured Name Patient Relationship to Insured Coverage Start Date Coverage End Date [facility] [address] [place] [address] [id number] JAY MENDOZA Self - patient is the insured Medical (General) History Medical History History ICD Code colonoscopy 12-25-2008 colon polyp elevated cholesterol hypothyroidism mitral valve prolapse osteopenia breast cancer with mastectomy Denies [place],DM,CVA,Lung disease,renal dise ase Surgical History Surgery Date(Month/Year) tubal ligation 1970 mastectomy 1998 right knee arthroscopy 1994
--- OUTSIDE RECORDS SUMMARY | 2025-05-14 11:06 | XMS_ITS | Patient Health Record ---
Author Organization [facility] Zari chanel [place] Address [address] [place] [address] Care Team Providers Care Meter Supervisor Name Role Phone Darrian Proctor MD Primary Care Provider Unareno ilPatti Donald Unavailable [phone] Allergies Allergen (clinical drug ingredient) Drug/Non Drug [...] Referring Provider Last Name Hitesh [facility] Referred Provider Patti Andrade Referred Address [address] [facility],[place], [place],[address], Referred Provider Specialty Podiatry Referral Priority Routine [...] Problem Acquired hammer toe of right foot ([id number]) Other hammer toe(s) (acquired), right foot (M20.41) Active confirmed Problem Acquired hammer toe of left foot (5678129830214281) Other hammer toe(s) (acquired), left foot (M20.42) Active confirmed Problem Bilateral atherosclerosis of arteries of lower limbs (disorder) ([id number] ) Atherosclerosis of comanche artery of both lower extremities, with unspecified presence of clinical manifestation (I70.203) Active confirmed Vital Signs Blood pressure diastolic 75 mm Hg 04/01/2025 Height 5 ft 2 in in 04/01/2025 Blood pressure systolic 122 mm Hg 04/01/2025 Weight 78 lbs 04/01/2025 BMI 14.26 kg/m2 04/01/2025 Encounters Encounter Location Date Provider Diagnosis [facility] [address] [address] 05/16/2024 Patti Andrade Atherosclerosis of comanche artery of both lower extremities, with unspecified presence of clinical manifestation I70.203 ; Tinea unguium B35.1 ; Pain in right toe(s) M79.674 and Pain in left toe(s) M79.[address] [facility] [address] 08/01/2024 Patti Perica Atherosclerosis of comanche artery of both lower extremities, with unspecified presence of clinical manifestation I70.203 ; Tinea unguium B35.1 ; Pain in right toe(s) M79.674 and Pain in left toe(s) M79.[address] [address] 12/31/2024 Patti Perica Atherosclerosis of comanche artery of both lower extremities, with unspecified presence of clinical manifestation I70.203 ; Tinea unguium B35.1 ; Pain in right toe(s) M79.674 ; Pain in left toe(s) M79.675 and Ingrown nail L60.[address] [address] 04/01/2025 Patti Perica Atherosclerosis of comanche artery of both lower extremities, with unspecified presence of clinical manifestation I70.203 ; Tinea unguium B35.1 ; Pain in right toe(s) M79.674 and Pain in left toe(s) M79.675 Assessments Encounter Date Diagnosis (ICD Code) Assessment Notes Treatment Notes Treatment Clinical Notes Section Notes 05/16/2024 Tinea unguium (ICD-10 - B35.1) 05/16/2024 Atherosclerosis of comanche artery of both lower extremities, with unspecified presence of clinical manifestation (ICD-10 - I70.203) 08/01/2024 Tinea unguium (ICD-10 - B35.1) 08/01/2024 Atherosclerosis of comanche artery of both lower extremities, with unspecified presence of clinical manifestation (ICD-10 - I70.203) 12/31/2024 Tinea unguium (ICD-10 - B35.1) 12/31/2024 Atherosclerosis of comanche artery of both lower extremities, with unspecified presence of clinical manifestation (ICD-10 - I70.203) 04/01/2025 Tinea unguium (ICD-10 - B35.1) 04/01/2025 Atherosclerosis of comanche artery of both lower extremities, with unspecified presence of clinical manifestation (ICD-10 - I70.203) 04/01/2025 Pain in right toe(s) (ICD-10 - M79.674) 12/31/2024 Pain in right toe(s) (ICD-10 - M79.674) 05/16/2024 Pain in right toe(s) (ICD-10 - M79.674) 08/01/2024 Pain in right toe(s) (ICD-10 - M79.674) 12/31/2024 Pain in left toe(s) (ICD-10 - M79.675) 08/01/2024 Pain in left toe(s) (ICD-10 - M79.675) 05/16/2024 Pain in left toe(s) (ICD-10 - M79.675) 04/01/2025 Pain in left toe(s) (ICD-10 - M79.675) 12/31/2024 Ingrown nail (ICD-10 - L60.0) Plan Of Treatment Next Appt Details Provider Name:Patti ponce, 07/07/2025 10:00:00 AM, [address] [place], [address], Insurance Providers Payer Name Payer Address Payer Phone Subscriber Number Group Number Insured Name Patient Relationship to Insured Coverage Start Date Coverage End Date [facility] 65 Medicare Preferred [address] [place] [address] [id number] Sandra Herrera Self - patient is the insured Medical (General) History Medical History History ICD Code Cancer covid-19 Dementia Chicken pox thyroid congestive heart failure Surgical History Surgery Date(Month/Year) tubal ligation 1970 mastectomy 1998 torn knee ligament 1994 3 micro clips attached to mitral valve 1 Hospitalization History Reason Date(Month/Year) C- UTI 11/2024 [facility] Right hand infection 05/01-05/04
== END 2025-05-14 10:32 | disposition home or self-care (01) ==
LOC: HO.HCS 09:29
PROVIDERS: PCP Internal Medicine; Visit Provider Internal Medicine Cardiovascular Disease
DX: I50.9 Heart failure, unspecified (principal); I38 Endocarditis, valve unspecified; Z98.890 Other specified postprocedural states; Z95.818 Presence of other cardiac implants and grafts; I48.20 Chronic atrial fibrillation, unspecified
CPT/HCPCS: 99214; G2211

== ENCOUNTER → 2025-05-14 09:28 | Outpatient (BNVA) | payer MEDICARE, SELFPAY | PROVIDERS: PCP Internal Medicine; Visit Provider Internal Medicine Cardiovascular Disease | DX: I50.9 Heart failure, unspecified (principal); I38 Endocarditis, valve unspecified; I48.20 Chronic atrial fibrillation, unspecified; Z98.890 Other specified postprocedural states; Z95.818 Presence of other cardiac implants and grafts | CPT/HCPCS: 99212 ==

== ENCOUNTER 2025-05-18 13:43 | Outpatient (REF) | payer MEDICARE, SELFPAY ==
--- NOTE | ~2025-05-18 | US_ITS ---
CLINICAL HISTORY: N18.31 - Chronic kidney disease, stage 3a --- Additional Notes or Special Instructions: (+) granular casts on urinalysis; GFR and serum creatinine have both Exam: Renal ultrasound Comparison: CT/SR - CT ABDOMEN PELVIS WO IV CON - 11/28/24 19:07 EDT Findings: Bilateral kidneys are not well seen. Right kidney is normal in size and grossly normal in echogenicity, 10.6 cm in length, no calculus or hydronephrosis, simple cyst 2.1 cm in the upper pole, indeterminate heterogeneously hypoechoic mass in the central portion of the upper pole, peripheral punctate echogenic foci may reflect calcification, minimal internal vascular flow, not seen on prior noncontrast CT. Left kidney is normal in size 9.3 cm in length, diffuse cortical thinning, persistent moderate to severe hydronephrosis with markedly dilated extrarenal pelvis, scattered echogenic foci of the left kidney may reflect calculi or vascular calcification, difficult to tell. Impression: 1. Persistent left moderate to severe hydronephrosis, scattered punctate renal calculi versus vascular calcifications. 2. Right renal indeterminate hypoechoic mass in the upper pole, recommend renal CT or MRI for further evaluation. This document has been electronically signed by: Meredith Rodriguez MD on 05/19/2025 13:05:12
== END 2025-05-18 13:44 | disposition home or self-care (01) ==
LOC: HO.HMGCX 13:43
PROVIDERS: PCP Internal Medicine; Visit Provider Internal Medicine
DX: N18.31 Chronic kidney disease, stage 3a (principal); N17.9 Acute kidney failure, unspecified; N13.30 Unspecified hydronephrosis
CPT/HCPCS: 76775

== ENCOUNTER → 2025-05-18 13:47 | Outpatient (BNV) | payer MEDICARE, SELFPAY | PROVIDERS: PCP Internal Medicine; Visit Provider Radiology Diagnostic Radiology | DX: N13.30 Unspecified hydronephrosis (principal); N28.89 Other specified disorders of kidney and ureter | CPT/HCPCS: 76775 ==

== ENCOUNTER → 2025-06-02 10:18 | Outpatient (REF) | payer MEDICARE, SELFPAY ==
--- OUTSIDE RECORDS SUMMARY | 2024-10-17 10:00 | XMS_ITS ---
Author Organization [facility] Address [address] [place] [address] Care Team Providers Care Director Perioperative Name Role Phone Hitesh CRENSHAW [place] Primary Care Provider Patti Arellano Unavailable [phone] Allergies Allergen (clinical drug ingredient) Drug/Non Drug [...] Active Encounters Encounter Location Date Provider Diagnosis [facility] [address] [place] [address] 10/17/2024 Patti Andrade Plan Of Treatment Next Appt Details Provider Name:Patti ponce, 07/07/2025 10:00:00 AM, [address] [place], [address], Progress Notes * Sandra HERRERA ADOB: [birth year] (85 yo F)Acc No.[id number]:10/17/2024 Progress Note Patient: Sandra CHAMPAGNE Provider: Anton Andrade DPM :1940 A ge:84 Y S ex:Female Date:10/17/2024 Address:[address] [place] [address] [place] Pcp:Darrian Proctor MD Subjective: * Chief Complaints: [...] DPM Date: 0 10/17/2024 Generated for Bella interiano/Svetlana/Ozitting on: 12:17 PM EDT
--- NOTE | ~2025-06-02 | NM_ITS ---
EXAMINATION: NM KIDNEY FLOW FUNCTION WITH RX HISTORY: N13.30 - Unspecified hydronephrosis. TECHNIQUE: A renogram and renal scan were performed following intravenous administration of 10.0 mCi technetium 99m-DTPA. The patient received 80 mg IV Lasix over 30 minutes approximately 30 minutes after injection of the radiopharmaceutical. COMPARISON: Correlation is made with a renal ultrasound dated 05/18/[address] of the abdomen and pelvis without contrast dated 11/28/2024. FINDINGS: Early images demonstrate mildly decreased perfusion to the left kidney. The right kidney demonstrates normal uptake and excretion of the radiopharmaceutical. There is normal washout from the right renal pelvis after the administration of intravenous Lasix. On the left, there is mild uptake of the radiopharmaceutical. The split function is approximately 31.6% on the left and 68.4% on the right. No excretion is seen on the left during the course of the study. Findings are compatible with obstruction. NM/NM renal flow w pharm int IMPRESSION: Findings compatible with left-sided obstruction as described. Electronically signed by: Freedom Espinoza MD 06/02/2025 02:57 PM EDT
--- OUTSIDE RECORDS SUMMARY | 2025-06-02 12:17 | XMS_ITS | Patient Health Record ---
Author Organization [facility] Zari chanel [place] Address [address] [place] [address] Care Team Providers Care Roustabout Supervisor Name Role Phone Darrian Proctor MD Primary Care Provider Unareno ilPatti Donald Unavailable [phone] Allergies Allergen (clinical drug ingredient) Drug/Non Drug [...] Referring Provider Last Name Hitesh [facility] Referred Provider Patti Andrade Referred Address [address] [facility],[place],[address], Referred Provider Specialty Podiatry Referral Priority Routine [...] Problem Acquired hammer toe of right foot ([id number]) Other hammer toe(s) (acquired), right foot (M20.41) Active confirmed Problem Acquired hammer toe of left foot (2485204797387045) Other hammer toe(s) (acquired), left foot (M20.42) Active confirmed Problem Bilateral atherosclerosis of arteries of lower limbs (disorder) ([id number] ) Atherosclerosis of alturas artery of both lower extremities, with unspecified presence of clinical manifestation (I70.203) Active confirmed Vital Signs Blood pressure diastolic 75 mm Hg 04/01/2025 Height 5 ft 2 in in 04/01/2025 Blood pressure systolic 122 mm Hg 04/01/2025 Weight 78 lbs 04/01/2025 BMI 14.26 kg/m2 04/01/2025 Encounters Encounter Location Date Provider Diagnosis [facility] [address] [address] 08/01/2024 Patti Andrade Atherosclerosis of alturas artery of both lower extremities, with unspecified presence of clinical manifestation I70.203 ; Tinea unguium B35.1 ; Pain in right toe(s) M79.674 and Pain in left toe(s) M79.[address] [facility] [address] 12/31/2024 Patti Perica Atherosclerosis of alturas artery of both lower extremities, with unspecified presence of clinical manifestation I70.203 ; Tinea unguium B35.1 ; Pain in right toe(s) M79.674 ; Pain in left toe(s) M79.675 and Ingrown nail L60.0 [facility] [place] [address] [place] [address] 04/01/2025 Patti Perica Atherosclerosis of alturas artery of both lower extremities, with unspecified presence of clinical manifestation I70.203 ; Tinea unguium B35.1 ; Pain in right toe(s) M79.674 and Pain in left toe(s) M79.675 Assessments Encounter Date Diagnosis (ICD Code) Assessment Notes Treatment Notes Treatment Clinical Notes Section Notes 08/01/2024 Tinea unguium (ICD-10 - B35.1) 08/01/2024 Atherosclerosis of alturas artery of both lower extremities, with unspecified presence of clinical manifestation (ICD-10 - I70.203) 12/31/2024 Tinea unguium (ICD-10 - B35.1) 12/31/2024 Atherosclerosis of alturas artery of both lower extremities, with unspecified presence of clinical manifestation (ICD-10 - I70.203) 04/01/2025 Tinea unguium (ICD-10 - B35.1) 04/01/2025 Atherosclerosis of alturas artery of both lower extremities, with unspecified [...] Provider Name:Patti ponce, 07/07/2025 10:00:00 AM, [address] [facility], [place], [address], Insurance Providers Payer Name Payer Address Payer Phone Subscriber Number Group Number Insured Name Patient Relationship to Insured Coverage Start Date Coverage End Date [facility] 65 Medicare Preferred [address] [place] [address] [phone] [id number] Sandra Herrera Self - patient is the insured Medical (General) History Medical History History ICD Code Cancer covid-19 Dementia Chicken pox thyroid congestive heart failure Surgical History Surgery Date(Month/Year) tubal ligation 1970 mastectomy 1998 torn knee ligament 1994 3 micro clips attached to mitral valve 1 Hospitalization History Reason Date(Month/Year) [facility] 11/2024 [facility]- Right hand infection 05/01-05/04
--- OUTSIDE RECORDS SUMMARY | 2025-06-02 12:17 | XMS_ITS | Patient Health Record ---
Author Organization [facility] Address [address] [place] [address] Care Team Providers Care Thiokol Operator Name Role Phone Hitesh CRENSHAW, Darrian Primary Care Provider Alex Acosta Jr Unavailable [phone] Allergies Allergen (clinical drug ingredient) Drug/Non Drug [...] Problem Status W/U Status Risk Notes Problem [id number] Irritable bowel syndrome without diarrhea (K58.9) Active confirmed Plan Of Treatment No Information Insurance Providers Payer Name Payer Address Payer Phone Subscriber Number Group Number Insured Name Patient Relationship to Insured Coverage Start Date Coverage End Date [facility] [address] [place] [address] [phone] [id number] JAY MENDOZA Self - patient is the insured Medical (General) History Medical History History ICD Code colonoscopy 12-25-2008 colon polyp elevated cholesterol hypothyroidism mitral valve prolapse osteopenia breast cancer with mastectomy Denies DC,DM,CVA,Lung disease,renal dise ase Surgical History Surgery Date(Month/Year) tubal ligation 1970 mastectomy 1998 right knee arthroscopy 1994
== END ==
LOC: HO.NUCMED 10:18
PROVIDERS: PCP Internal Medicine; Visit Provider Urology
DX: N18.31 Chronic kidney disease, stage 3a (principal); N13.30 Unspecified hydronephrosis
CPT/HCPCS: 78708; A9539; J1938

== ENCOUNTER → 2025-06-02 10:19 | Outpatient (BNV) | payer MEDICARE, SELFPAY | PROVIDERS: PCP Internal Medicine; Visit Provider Radiology Diagnostic Radiology | DX: N13.2 Hydronephrosis with renal and ureteral calculous obstruction (principal) | CPT/HCPCS: 78708 ==

== ENCOUNTER 2025-07-14 10:30 | Outpatient (AMB) | payer MEDICARE, SELFPAY ==
--- NOTE | 2025-07-14 10:59 | A.OFFVIS_ITS ---
Intake Visit Reasons: hydronephrosis/renogram Intake Note: Patient presents today for a follow up/JOLYNN deny urinary sx today Imaging : Renal Ultrasound 05/19/25, NM Renal Scan 06/02/25 Urology Medication:None Blood Thinner:Apixaban Antibiotic Allergies:sulfa,ciprofloxacin Director Safety Council Required: No Accompanied by: Daughter Allergies Sulfa (Sulfonamide Antibiotics) (Sulfa (Sulfonamides)) Allergy (Mild, Verified 07/14/25 11:00) RASH ciprofloxacin (Cipro) Allergy (Unknown, Verified 07/14/25 11:00) rash scallops Allergy (Unknown, Verified 07/14/25 11:00) Sick to the stomach HPI Comments Details: Sandra is a very pleasant female. Accompanied by her daughter. She is a patient of Dr. Proctor. She is seen for the following urologic conditions - urinary tract infection - left renal obstruction Imaging The right kidney demonstrates normal uptake and excretion of the radiopharmaceutical. There is normal washout from the right renal pelvis after the administration of intravenous Lasix. On the left, there is mild uptake of the radiopharmaceutical. The split function is approximately 31.6% on the left and 68.4% on the right. No excretion is seen on the left during the course of the study. Findings are compatible with obstruction. Discussed findings with daughter At this stage would not intervene Continue with vitamin-C and add methenamine Six-month follow-up Urinary tract infection Significant urinary tract infection in hospital Creatinine resolved from 2.3 to 1.0 which is baseline Urine growth negative in prior visit Baseline dementia, CKD 3, malnutrition with BMI reported at 15 Imaging - Moderate hydronephrosis of the left kidney. Severe infiltration of left-sided perinephric fat. Consider pyelonephritis. The degree of infiltration within the retroperitoneum also raises the possibility of urine extravasation or hemorrhage of uncertain source. Encouraged vitamin-C and cranberry capsules [facility] Medical History Mitral regurgitation Cataract of both eyes Anticoagulated on Coumadin Petechial rash Petechial rash Enlarged RV (right ventricle) Tricuspid regurgitation Alzheimer's disease Irritable bowel syndrome (IBS) Osteoporosis Chronic kidney disease (CKD), stage III (moderate) Pure hypercholesterolemia Hypothyroidism Chronic atrial fibrillation CHF due to valvular disease Surgical History Status post implantation of mitral valve leaflet clip (~06/16/20) Hx of tubal ligation Hx of left mastectomy Family History Father Hx of blood clots Mother Hx of blood clots Social History Household Members: Other Household Members Other:: Son Alex Housing: House Do you presently have visiting nurse or other home services: No Alcohol intake: never Patient Tobacco Use Status: Never used Tobacco e-Cigarette/Vaping Use: Never Used Second Hand Smoke Exposure: No Advance Directives Date on File: 08/11/22 service: No Current occupational status: retired Cognitive needs: No Hearing needs: No Vision needs: Yes Review of Systems Const Denies chills and Denies fever(s) Card Reports no additional complaints and Denies syncope Resp Denies cough GI Denies abdominal pain and Denies heartburn Reports as per HPI and Denies change in libido Neuro Denies syncope Psych Denies change in libido Endo Denies change in libido Physical Exam Const General: cooperative, healthy appearing, comfortable and no acute distress Orientation/consciousness: patient oriented x3 HEENT Face and sinus: Yes normal facial exam Mouth: moist mucous membranes Neck Neck: Yes normal visual inspection, Yes full ROM and Yes trachea midline Chest Chest palpation & inspection: normal inspection of the chest Resp Effort & Inspection: normal respiratory effort, able to speak in complete sentences and no respiratory distress GI Inspection: Yes normal to inspection Back/Spine/Pelvis Cervical Spine: normal cervical lordosis Thoracic/Lumbar Spine: thoracic and lumbar spine normal to inspection Skin General skin exam: no rashes or lesions noted Neuro General: patient oriented x3, gait normal, tone normal and moves all extremities Extrem General: Yes normal to inspection and Yes capillary refill normal Assessment & Plan Assessment & Plan (1) Hydronephrosis of left kidney: Code(s): N13.30 - Unspecified hydronephrosis Category: Medical (2) Recurrent UTI: Code(s): N39.0 - Urinary tract infection, site not specified Category: Medical Plan Six-month follow-up Medications: New terazosin 1 mg PO BEDTIME 30 caps 1RF 30 days N39.0 - Urinary tract infection, site not specified methenamine hippurate 1 g PO DAILY 90 tabs 1RF 90 days N39.0 - Urinary tract infection, site not specified Patient Instructions: This note is constructed using voice recognition software. While every effort argueta s been made to ensure accuracy conduit worker errors may have been included. Imaging studies, laboratory and physical exam results were discussed and reviewed in detail. No major barriers to patient understanding were identified. An opportunity to ask questions regarding the treatment plan was provided. All questions were answered. The patient expressed understanding and agreement with the above treatment plan. The patient is aware they should contact our office by phone for worsening of their current condition or the appearance of new urologic symptoms. Compliance is encouraged with any medications and followup testing that is ordered. It is a privilege to participate in the urologic care of your patient. If you have any questions or concerns regarding treatment for the above conditions, or other urologic issues, please do not hesitate to contact me. The office telephone contact is [phone]. Sincerely, Dr Neftali Paula MD, [facility] - Urology Compassionate Specialist Care for the Genitourinary System Coding Level of Care Code Est Pt Level 4 (75221) Diagnoses Hydronephrosis of left kidney N13.30 Recurrent UTI N39.0
== END 2025-07-14 11:20 | disposition home or self-care (01) ==
LOC: HO.HUSH 10:30
PROVIDERS: PCP Internal Medicine; Visit Provider Urology
DX: N13.30 Unspecified hydronephrosis (principal); N39.0 Urinary tract infection, site not specified
CPT/HCPCS: 99214

== ENCOUNTER 2025-07-14 15:28 | Outpatient (REF) | payer MEDICARE, SELFPAY ==
--- NOTE | ~2025-07-14 | CT_ITS ---
EXAMINATION: CT ABDOMEN WITHOUT IV CONTRAST HISTORY: N28.89 - Other specified disorders of kidney and ureter. Evaluate right upper pole mass seen by ultrasound COMPARISON: Previous CT of the abdomen and pelvis most recent November 2024, renal ultrasound April 2025 and nuclear medicine renal scan May 2025 TECHNIQUE: CT scan of the abdomen and pelvis was performed without contrast using standard departmental protocol. Coronal and sagittal reformatted images were generated and reviewed. This CT exam was performed with one or more of the following dose reduction techniques: automated exposure control, adjustment of the mA and/or kV according to patient size, use of iterative reconstruction technique. DLP: 80 mGy-cm FINDINGS: LOWER CHEST: The visualized lung bases are clear. There is no pleural effusion. CARDIOVASCULATURE: The heart is very enlarged similar to prior exam. There are 3 adjacent medical devices adjacent to the AV valve/ mitral valve that appear unchanged. No pericardial effusion. LIVER: The liver is normal in size and contour. Prominent intrahepatic IVC and hepatic veins suggestive of right heart compromise. The liver otherwise has an unremarkable unenhanced appearance. GALLBLADDER / BILE DUCTS: The gallbladder is unremarkable. There is no intra or extrahepatic biliary ductal dilatation. SPLEEN: The spleen is normal in size and has an unremarkable unenhanced appearance. PANCREAS: The pancreas has an unremarkable unenhanced appearance. ADRENAL GLANDS: Unremarkable. KIDNEYS/RETROPERITONEUM: 1.4 x 2.3 x 2 cm low-attenuation lesion exophytic to the upper pole of the right kidney. Hounsfield units measure between 13 and 22. This may represent a minimally complex cyst. This is similar to November 2024 exam. There is a 0.8 x 1.5 x 1 cm low-attenuation lesion exophytic to the posterior lateral mid left kidney. This probably represents a cyst as well and is similar to prior CT. This is similar to prior CT from November 2024. There is severe left hydronephrosis unchanged. The left ureter does not appear dilated. There are multiple left renal stones, largest measuring 2 x 7 mm in the lower pole. No right renal stone or hydronephrosis. LYMPH NODES: No retroperitoneal lymphadenopathy is identified in the abdomen or pelvis. VASCULATURE: Severe atherosclerotic disease. No aneurysm. Dilated intrahepatic IVC and hepatic veins suggestive of right heart compromise. MESENTERY/PERITONEUM: No free fluid. No masses. There is no free intraperitoneal gas. STOMACH: Underdistended and not well evaluated. Difficult to exclude mild circumferential gastric wall thickening. SMALL BOWEL: The small bowel is normal in caliber. COLON: Diverticulosis of the colon and constipation. APPENDIX: Normal. BONES / SOFT TISSUES: Nonspecific sclerotic densities in the sacrum and right iliac bone unchanged from November 2024. Degenerative changes of the spine. CT/CT abdomen wo IV con IMPRESSION: Stable appearing 2 x 2.3 cm low-attenuation lesion exophytic to the upper pole of the right kidney from November 2024 CT. This is not completely characterized without IV contrast but may represent a complex cyst. This could be better characterized with CT or MRI according to renal mass protocol with and without IV contrast if clinically warranted. Otherwise this is a well seen by ultrasound and could be followed with follow-up renal ultrasound in 6-12 months. Smaller probable left renal cyst. Severe left hydronephrosis similar to prior exam and left renal stones. The left ureter is not dilated and this may represent a UPJ obstruction. Electronically signed by: Sherlyn Marti MD 07/14/2025 05:27 PM EST
== END 2025-07-14 15:29 | disposition home or self-care (01) ==
LOC: HO.CT 15:28
PROVIDERS: PCP Internal Medicine; Visit Provider Internal Medicine
DX: N28.89 Other specified disorders of kidney and ureter (principal); N13.30 Unspecified hydronephrosis; N39.0 Urinary tract infection, site not specified
CPT/HCPCS: 74150; 99212

== ENCOUNTER → 2025-07-14 15:30 | Outpatient (BNV) | payer MEDICARE, SELFPAY | PROVIDERS: PCP Internal Medicine; Visit Provider Radiology Diagnostic Radiology | DX: N28.9 Disorder of kidney and ureter, unspecified (principal); N13.30 Unspecified hydronephrosis | CPT/HCPCS: 74150 ==

== ENCOUNTER 2025-08-07 08:39 | Outpatient (REF) | payer MEDICARE, SELFPAY ==
[2025-08-07 13:54] LABS: MANUAL DIFF FLAG NO
[2025-08-07 13:58] LABS: Hematocrit 39.1 % (37.0-47.0); Hemoglobin 12.2 g/dl (12.0-16.0); Imm Gran Abs Auto 0.01 X10*3/uL (0.00-0.03); Imm Gran Pct Auto 0.2 % (0.0-0.4); Lymphocytes Absolute Auto 0.9 X10*3/uL (1.2-4.9); Mean Corpuscular HGB Conc 31.2 g/dl (31.0-35.0); Mean Corpuscular Hemoglobin 31.7 pg (27.0-33.0); Mean Corpuscular Volume 101.6 fL (80.0-98.0); NRBC Abs Auto 0.000 X10*3/uL (0.0-0.012); NRBC Pct Auto 0.0 /100WBC (0.0-0.2); Platelet Count 165 X10*3/uL (160-400); Red Blood Count 3.85 X10*6/uL (4.20-5.50); White Blood Count 4.4 X10*3/uL (4.8-10.8)
[2025-08-07 14:21] LABS: Appearance Urine Cloudy; Glucose Urine UA Negative (Negative); PH 6.5 (5.0-9.0); Specific Gravity - Urine 1.020 (1.005-1.025); UMIC TRIGGER UACC YES
[2025-08-07 14:33] LABS: UACC Culture Trigger YES
[2025-08-07 14:38] LABS: Alanine Aminotransferase 18 U/L (0-31); Albumin Level 4.0 g/dL (3.5-5.0); Alkaline Phosphatase 96 U/L (39-117); Anion Gap 13 (12-20); Aspartate Amino Transferase 32 U/L (5-31); Blood Urea Nitrogen 53 mg/dL (9-16); Calcium 9.1 mg/dL (8.4-10.2); Carbon Dioxide 28 mmol/L (22-29); Chloride 105 mmol/L (96-108); Cholesterol 198 mg/dL (<200); Estimated Glomerular Filt Rate 27; HDL Cholesterol 65 mg/dL (>40); Potassium 4.5 mmol/L (3.3-5.1); Sodium 141 mmol/L (135-145); Total Protein 6.9 g/dL (6.5-8.0); Triglycerides 102 mg/dL (<150)
[2025-08-07 14:44] LABS: Free T4 (Free Thyroxine) 1.38 ng/dL (0.71-1.85); Thyroid Stimulating Hormone 2.94 uIU/mL (0.32-4.0)
[2025-08-07 15:05] LABS: Microalbum/Creatinine Ratio Ur 358.0 ug/mg cr (<30)
[2025-08-07 15:13] LABS: Folate 13.9 ng/mL (> or = 4.0); Vitamin B12 681 pg/mL (200-900)
== END 2025-08-07 08:40 | disposition home or self-care (01) ==
LOC: HO.HMGCLDS 08:39
PROVIDERS: PCP Internal Medicine; Visit Provider Internal Medicine
DX: E11.9 Type 2 diabetes mellitus without complications (principal); D64.9 Anemia, unspecified; E53.8 Deficiency of other specified B group vitamins; E78.00 Pure hypercholesterolemia, unspecified; E03.9 Hypothyroidism, unspecified; E55.9 Vitamin D deficiency, unspecified; R30.0 Dysuria
CPT/HCPCS: 36415; 80053; 80061; 81001; 81003; 82043; 82306; 82570; 82607; 82746; 84439; 84443; 85025; 87086

== ENCOUNTER 2025-08-12 09:37 | Outpatient (AMB) | payer MEDICARE, SELFPAY ==
--- OUTSIDE RECORDS SUMMARY | 2024-03-11 06:15 | XMS_ITS ---
Author Organization [facility] Address [address] [place] [address] Care Team Providers Care Youth Agent Name Role Phone Darrian Proctor MD Primary Care Provider Unava ilPatti Donald [phone] Encounters Encounter Location Date Provider Diagnosis [facility] [address] [place] [address] 03/11/2024 Patti Andrade Plan Of Treatment Next Appt Details Provider Name:Patti ponce, 10/13/2025 10:00:00 AM, [address] [place], [address], Progress Notes * Sandra HERRERA ADOB: [birth year] (85 yo F)Acc No.[id number]:03/11/2024 Progress Note Patient: Sandra CHAMPAGNE Provider: Anton Andrade DPM :1940 A ge:83 Y S ex:Female Date:03/11/2024 Address:[address] [place] [address] godfrey [id number] Pcp:Darrian Proctor MD Subjective: * Chief Complaints: * * Medical History: Objective: * Vitals: Assessment: Plan: * Treatment: * Images: * The named appointment provid er may or may not be the originator of this progress note, and it is not deemed complete until electronically signed by the appointment provider. Sign off status: Pending * Provider: Anton Andrade, MOHAN Date: 0 03/11/2024 Generated for Bella interiano/Svetlana/Valerie on: 1 10/13/2024 11:09 AM EST
--- OUTSIDE RECORDS SUMMARY | 2024-10-17 09:00 | XMS_ITS ---
Author Organization [facility] Address [address] [place] [address] Care Team Providers Care Referral Rn Name Role Phone Hitesh CRENSHAW [place] Primary Care Provider Patti Arellano Unavailable [phone] Allergies Allergen (clinical drug ingredient) Drug/Non Drug Allergy documented on EMR Reaction Allergy Type Onset Date Status sulfamethoxazole / trimethoprim Bactrim Unknown Drug Allergy Active ciprofloxacin Cipro Unknown Drug Allergy Act fortino Shrimp Flavor Unknown Drug Allergy Act fortino Medications Medication SIG (Take, Route, Frequency, Duration) Notes Start Date End Date Status Metoprolol Succinate ER 100 MG Oral; Duration: 90 Days Active Levothyroxine Sodium 75 MCG Oral; Duration: 90 Days Active Furosemide 20 MG Oral; Duration: 90 Days Active Warfarin Sodium 10 MG 1 tablet Orally On ce a day; Duration: 48 days Not-Takin g Donepezil HCl 10 MG Oral; Duration: 90 Active Vitamin D Active B-Complex Active Eliquis 2.5 MG as directed Orally Active Encounters Encounter Location Date Provider Diagnosis [facility] [address] [place] [address] 10/17/2024 Patti Andrade Plan Of Treatment Next Appt Details Provider Name:Patti ponce, 10/13/2025 10:00:00 AM, [address] [place], [address], Progress Notes * Sandra HERRERA ADOB: [birth year] (85 yo F)Acc No.[id number]:10/17/2024 Progress Note Patient: Sandra CHAMPAGNE Provider: Anton Andrade DPM :1940 A ge:84 Y S ex:Female Date:10/17/2024 Address:[address] [place] [address] [place] Pcp:Darrian Proctor MD Subjective: * Chief Complaints: * * Medical History: C ancer, Covid-19, Dementia, Chicken pox, Thyroid, Congestive heart failure. * Medications: T aking Eliquis 2.5 MG Tablet as directed Orally , Taking B-Complex , Taking Vitamin D , Taking Furosemide 20 MG Tablet Oral , Taking Levothyroxine Sodium 75 MCG Tablet Oral , Taking Metoprolol Succinate ER 100 MG Tablet Extended Release 24 Hour Oral , Taking Donepezil HCl 10 MG Tablet Oral , Not-Taking/PRN Warfarin Sodium 10 MG Tablet 1 tablet Orally Once a day * Allergies: C ipro, Bactrim, Shrimp Flavor. Objective: * Vitals: Assessment: Plan: * Treatment: * Images: * The named appointment provid er may or may not be the originator of this progress note, and it is not deemed complete until electronically signed by the appointment provider. Sign off status: Pending * Provider: Anton Andrade DPM Date: 0 10/17/2024 Generated for Bella interiano/Svetlana/zOitting on: 10/13/2024 11:10 AM EST
--- NOTE | 2025-08-12 09:43 | A.OFFPC_ITS ---
Vital Signs 08/12/25 09:45 Height 5 ft 1 in Weight 85 lb 2 oz BMI 16.1 BP 130/70 Blood Pressure Location Rt brachial Position Sitting Temp 96.9 F Temp Source Temporal Artery Scan Intake Visit Reasons: 4mth f/u Intake Note: Patient is here to follow up on CKD, CAFib, Hypercholesterolemia. Telesales Specialist Required: No Police Records Clerk: Present Accompanied by: Daughter Allergies Sulfa (Sulfonamide Antibiotics) (Sulfa (Sulfonamides)) Allergy (Mild, Verified 08/12/25 09:59) RASH ciprofloxacin (Cipro) Allergy (Unknown, Verified 08/12/25 09:59) rash scallops Allergy (Unknown, Verified 08/12/25 09:59) Sick to the stomach terazosin Adverse Reaction (Intermediate, Verified 08/12/25 09:59) tremors Medication List - Last Reconciled 08/12/25 by Darrian Proctor MD apixaban (Eliquis) 2.5 mg PO BID 90 days cholecalciferol (vitamin D3) 25 mcg PO DAILY 90 days donepezil 10 mg PO BEDTIME 90 days furosemide 20 mg PO DAILY PRN levothyroxine 75 mcg PO DAILY@0600 90 days methenamine hippurate 1 g PO DAILY 90 days metoprolol succinate ER 100 mg PO DAILY 90 days vitamin B complex 1 tab PO DAILY Tobacco use date assessed: 08/12/25 Fall risk assessment: 1 Fall in past year Last assessed Fall Risk: 08/12/25 Dental Screening Dental Screen Date: 12/16/24 HPI 4mth f/u HPI Details Patient comes in today for her follow up visit - she is accompanied as usual by her daughter, who also acts as her HCP, as patient has dementia/cognitive decline She was recently diagnosed with a complete obstruction and non-functioning left kidney which explains her persistent left hydronephrosis that was seen consistently on imaging studies done over the past year She was seen for this by urology and after discussion with patient's daughter, the decision was made for NO intervention at this time, given patient's age and comorbidities Patient states that she feels okay She denies any headaches or dizziness Denies any chest pains, no increased SOB No nausea/vomiting, no abdominal pain No change in bowel habits noted She denies any acute urinary symptoms and denies any flank pains She had her follow up labs done last week - to discuss her results [facility] Medical History (Updated 08/12/25 @ 10:37 by Darrian Proctor MD) Chronic kidney disease, stage 4 (severe) Mitral regurgitation Cataract of both eyes Anticoagulated on Coumadin Petechial rash Petechial rash Enlarged RV (right ventricle) Tricuspid regurgitation Alzheimer's disease Irritable bowel syndrome (IBS) Osteoporosis Chronic kidney disease (CKD), stage III (moderate) Pure hypercholesterolemia Hypothyroidism Chronic atrial fibrillation CHF due to valvular disease Surgical History Status post implantation of mitral valve leaflet clip (~06/16/20) Hx of tubal ligation Hx of left mastectomy Family History Father Hx of blood clots Mother Hx of blood clots Social History Household Members: Other Household Members Other:: Son Alex Housing: House Do you presently have visiting nurse or other home services: No Alcohol intake: never Patient Tobacco Use Status: Never used Tobacco e-Cigarette/Vaping Use: Never Used Second Hand Smoke Exposure: No Advance Directives Date on File: 08/11/22 service: No Current occupational status: retired Cognitive needs: No Hearing needs: No Vision needs: Yes Questionnaire Thrive Questionnaire Date Thrive assessed: 02/09/25 I am a: Parent/Caregiver What is your living situation today?: I have a steady place to live Within the past 12 months, did the food you bought not last and you didn't have the money to get more?: Never true Within the past 12 months, did you worry whether your food would run out before you got money to buy more?: Never true Do you have trouble paying for medicines?: No Do you have trouble getting transportation to medical appointments?: No Do you have trouble paying your heating and electricity bill?: No Do you have trouble taking care of your child, family member or friend?: No Do you have trouble with day-to-day activities such as bathing, preparing meals, shopping, managing finances, etc.?: Yes Are you currently unemployed and looking for a job?: No Are you interested in more education?: No Please select the resources that you would like help with: None Currently or been in a relationship where the following occur: No concerns reported THRIVE Score: 0 ALTON-7 AMB Questionnaire ALTON-7 Date ALTON - 7 assessed: 04/07/25 Source: Developed by Drs. Freedom Yung, Radha Herrera, Adi Anand and colleagues, with an educational alejandro from [employer]. Review of Systems Const Denies chills, Denies difficulty sleeping, Reports fatigue (on and off), Denies fever(s) and Denies headache(s) ENT Denies dysphagia, Denies dizziness, Denies otalgia, Denies headache(s), Denies neck pain, Denies odynophagia and Denies sore throat Card Denies chest pain, Denies palpitations and Reports dyspnea on exertion (mild) Resp Denies chest congestion, Denies cough and Reports dyspnea on exertion (mild) GI Denies abdominal pain, Denies constipation, Denies dysphagia, Denies heartburn, Denies diarrhea, Denies nausea, Denies odynophagia and Denies vomiting Denies difficulty voiding, Denies nocturia, Denies dysuria and Denies urinary urgency Musc Denies back pain and Denies neck pain Skin/Breast Denies rash Neuro Reports confusion, Denies dizziness, Denies headache(s) and Reports memory loss (stable) Psych Reports confusion and Reports memory loss (stable) Endo Reports fatigue (on and off) and Denies palpitations Physical exam (Primary Care) Vital Signs: Last Vital Signs Temp 96.9 F 08/12/25 09:45 BP 130/70 08/12/25 09:45 BMI result Body Mass Index 16.1 Tobacco/Smoking Status: Tobacco use Status Tobacco use date assessed 08/12/25 08/12/25 09:52 Patient Tobacco Use Status Never used Tobacco 08/12/25 09:52 e-Cigarette/Vaping Use Never Used 08/12/25 09:52 Thrive Assessment: Date of Thrive Assessment Date Thrive assessed 02/09/25 08/12/25 09:52 Currently or been in a relationship where the following occur: No concerns reported Const General: confusion Orientation/consciousness: confusion HENMT Throat: Yes posterior oropharynx normal and Yes tonsils normal (no TP congestion noted) Neck Neck: Yes supple and No lymphadenopathy Thyroid: Thyroid normal Resp Auscultation: clear to auscultation bilaterally, no rales and no wheezes Cardio Rate: regular rate Rhythm: abnormal rhythm irregularly irregular Heart sounds: Murmur heart sound present systolic III/, at the apex and at the left sternal border GI Palpation (GI): Soft to palpation and nontender Auscultation: normal bowel sounds General: Yes no CVA tenderness Back/Spine/Pelvis Back: no CVA tenderness Skin Rashes: no rashes Neuro General: confusion Extrem General: Yes no clubbing, cyanosis or edema Results Reviewed Results Reviewed: Laboratory Tests 08/07/25 08/07/25 08/07/25 07:30 07:50 09:40 WBC 4.4 L Hgb 12.2 Hct 39.1 Plt Count 165 Sodium 141 Potassium 4.5 Creatinine 1.80 H Estimated GFR 27 Fasting Glucose 91 Calcium 9.1 AST 32 H ALT 18 Triglycerides 102 Cholesterol 198 LDL Cholesterol, Calc 113 H HDL Cholesterol 65 Vitamin B12 681 25-OH Vitamin D Total 64.9 TSH 2.94 Free T4 1.38 Ur Specific [place] 1.020 Urine Protein 100 (2+) H Urine Glucose (UA) Negative Urine Blood Large (3+) H Urine Nitrite Negative Ur Leukocyte Esterase Trace H Microalb/Creat Ratio 358.0 H Coding Level of Care Code Est Pt Level 4 (28306) Diagnoses Hydronephrosis, unspecified hydronephrosis type N13.30 Hydronephrosis type: unspecified Chronic atrial fibrillation I48.20 CHF due to valvular disease I50.9; I38 Nonrheumatic mitral valve regurgitation I34.0 Cardiac valve disease etiology: nonrheumatic Acquired hypothyroidism E03.9 Hypothyroidism type: acquired Pure hypercholesterolemia E78.00 Chronic kidney disease, stage 4 (severe) N18.4 Age-related osteoporosis without current pathological fracture M81.0 Osteoporosis type: age-related Presence of current pathological fracture: without current pathological fracture Irritable bowel syndrome, unspecified type K58.9 Irritable bowel syndrome type: unspecified Elevated LFTs R79.89 Alzheimer's disease G30.9; F02.80 Assessment & Plan Assessment & Plan (1) Hydronephrosis: Comment: severe hydronephrosis of the left kidney Code(s): N13.30 - Unspecified hydronephrosis Category: Medical Qualifiers: Hydronephrosis type: unspecified Qualified Code(s): N13.30 - Unspecified hydronephrosis Plan: (+) moderate hydronephrosis of the left kidney seen on abdominal/pelvic CT done at [facility] in November 2024 She was seen by urology back on 01/20/2025 and as she did not have any acute symptoms at the time, recommended conservative management and yearly follow up/surveillance As her recent labs showed findings of a significant decline in her renal function as well as the presence if granular casts in her urinalysis, so she was sent for renal US for further evaluation, which revealed a persistent left moderate to severe hydronephrosis, scattered punctate renal calculi versus vascular calcifications. Right renal indeterminate hypoechoic mass in the upper pole, recommend renal CT or MRI for further evaluation CT done in June 2025 revealed (+) Stable appearing 2 x 2.3 cm low- attenuation lesion exophytic to the upper pole of the right kidney from November 2024 CT. This is not completely characterized without IV contrast but may represent a complex cyst. This could be better characterized with CT or MRI according to renal mass protocol with and without IV contrast if clinically warranted. Otherwise this is a well seen by ultrasound and could be followed with follow-up renal ultrasound in 6-12 months. Smaller probable left renal cyst. Severe left hydronephrosis similar to prior exam and left renal stones. The left ureter is not dilated and this may represe nt a UPJ obstruction She was seen for this again recently by urology and after discussion with patient's daughter, the decision was made for NO intervention at this time, given patient's age and comorbidities She could not tolerate a trial of Terazosin (had tremors while on the Rx) Follow up with urology as scheduled for continuing observation/surveillance (2) Chronic atrial fibrillation: Code(s): I48.20 - Chronic atrial fibrillation, unspecified Category: Medical Plan: Patient currently remains rate-controlled on Metoprolol ER 100 mg QD Continue long-term anticoagulation with Apixaban 2.5 mg BID (3) CHF due to valvular disease: Code(s): I50.9 - Heart failure, unspecified; I38 - Endocarditis, valve unspecified Category: Medical Plan: Her symptoms have improved a lot since her MitraClip procedure back in May 2020 Reinforced fluid restriction Continue Furosemide 20 mg QD PRN but with her recent renal function decline, have advised her to take this only when really needed Echocardiogram done a few years ago (prior to her MitraClip procedure) showed ejection fraction to be between 60-65% but with severe mitral regurgitation, severe tricuspid regurgitation and biatrial enlargement Repeat echocardiogram done in July 2023 revealed normal left ventricular systolic function, with the visually estimated ejection fraction to be between 55-60%. There is severe biatrial enlargement and atrial septal defect with left to right shunt and gradient of 17mmHg. There is also mild to moderate mitral valve regurgitation. Mitraclip is in place. Mean gradient of 7mmHg at 70/min. There is moderate tricuspid valve regurgitation. Mild pulmonary hypertension is present Her most recent echocardiogram done last month (October 2024) revealed (+) low normal left ventricular systolic function, with the calculated ejection fraction at 54% by the biplane method. The right ventricular cavity size is severely increased, with severe biatrial enlargement and (+) atrial septal defect with [id number] shunting is noted by color doppler. There is mild to moderate mitral valve regurgitation, with a Mitraclip in place. There is severe tricuspid valve regurgitation as well, with severe pulmonary hypertension now present Follow up with cardiology as scheduled (4) Mitral regurgitation: Comment: Status post MitraClip Code(s): I34.0 - Nonrheumatic mitral (valve) insufficiency Category: Medical Qualifiers: Cardiac valve disease etiology: nonrheumatic Qualified Code(s): I34.0 - Nonrheumatic mitral (valve) insufficiency Plan: S/P MitraClip procedure at [facility] on 06/16/2020, followed by cardiac rehab, which patient states helped a lot back then Follow-up with cardiology as scheduled (5) Hypothyroidism: Code(s): E03.9 - Hypothyroidism, unspecified Category: Medical Qualifiers: Hypothyroidism type: acquired Qualified Code(s): E03.9 - Hypothyroidism, unspecified Plan: Patient's TFTs were normal on her labs done last week Continue Levothyroxine 75 mcg once a day Will recheck her TFTs in 4 months for follow up (6) Pure hypercholesterolemia: Code(s): E78.00 - Pure hypercholesterolemia, unspecified Category: Medical Plan: Results of her labs done last week reviewed and discussed with patient - her cholesterol numbers are acceptable on her recent labs Reinforced low cholesterol diet Patient was on Simvastatin in the past but this was discontinued during her hospitalization earlier this year and she prefers not to go back on it if possible Will recheck her labs and fasting lipids in 4 months for follow-up (7) Chronic kidney disease, stage 4 (severe): Code(s): N18.4 - Chronic kidney disease, stage 4 (severe) Category: Medical Plan: Patient suffered an JOLYNN with her hospital admission back in November 2024 but her renal function have subsequently recovered although she is now in early stage 4 CKD - her recent left hydronephrosis and currently non-functioning left kidney likely contributed to her slight decline in her renal function lately although this appears to have stabilized now Will continue to monitor her renal function closely (8) Osteoporosis: Code(s): M81.0 - Age-related osteoporosis without current pathological fracture Category: Medical Qualifiers: Osteoporosis type: age-related Presence of current pathological fracture: without current pathological fracture Qualified Code(s): M81.0 - Age- related osteoporosis without current pathological fracture Plan: Her repeat BMD back in July 2016 showed a -16% decline in BMD compared to h er numbers in 2013 Patient was referred to and seen by Endocrinology recently and recommended starting on Prolia but patient decided against taking any Rx due to their potential side effects Continue Caltrate 600+ D tablet chewable, 600-400 mg - unit 1 tablet twice a day Her most recent BMD done in 01/2021 revealed (+) osteoporosis based on the lowest T-score value of -3.2 in the lumbar spine Her BMD here in both the AP spine and femur have declined by 10% or more from her previous BMD In 2016 Follow-up with endocrinology as scheduled (9) Irritable bowel syndrome (IBS): Code(s): K58.9 - Irritable bowel syndrome, unspecified Category: Medical Qualifiers: Irritable bowel syndrome type: unspecified Qualified Code(s): K58.9 - Irritable bowel syndrome without diarrhea Plan: Patient has been taking Align (as recommended by Dr. Tolliver) and states that the medication helps a lot States that Dr. Tolliver recommended no further intervention -? last colonoscopy in 2008 was normal Follow up with GI (Dr. Tolliver)? as scheduled (10) Elevated LFTs: Code(s): R79.89 - Other specified abnormal findings of blood chemistry Category: Medical Plan: Patient's serum AST was again slightly elevated on her recent labs; ALT was normal She currently denies any acute GI symptoms Will just continue to monitor her LFTs for now and if her LFT elevation persists or gets worse, will consider sending her for abdominal US for further evaluation (11) Alzheimer's disease: Code(s): G30.9 - Alzheimer's disease, unspecified; F02.80 - Dementia in other diseases classified elsewhere, unspecified severity, without behavioral disturbance, psychotic disturbance, mood disturbance, and anxiety Category: Medical Plan: Continue Donepezil 10 mg once a day at bedtime Follow-up with Neurology as scheduled Plan Follow up in 4 months Orders: Orders Complete Blood Count Auto Diff 4 Months D64.9 - Anemia, unspecified Comprehensive [place]. Panel Fast 4 Months E78.00 - Pure hypercholesterolemia, unspecified Thyroid Stimulating Hormone 4 Months E03.9 - Hypothyroidism, unspecified UA CC w/rflx Micro + Cult 4 Months R30.0 - Dysuria Vitamin D 25-OH Total 4 Months E55.9 - Vitamin D deficiency, unspecified Lipid Panel 4 Months E78.00 - Pure hypercholesterolemia, unspecified Free T4 (Free Thyroxine) 4 Months E03.9 - Hypothyroidism, unspecified Vitamin B12 and Folate 4 Months E53.8 - Deficiency of other specified B group vitamins
[2025-08-12 09:45] VITALS: BP 130/70; TEMP 36.1; BMI 16.1
--- OUTSIDE RECORDS SUMMARY | 2025-08-12 11:12 | XMS_ITS | Patient Health Record ---
Author Organization [facility] Address [address] [place] [address] Care Team Providers Care Dye Beck Reel Operator Name Role Phone Hitesh CRENSHAW, Darrian Primary Care Provider Alex Acosta Jr Unavailable Allergies Allergen (clinical drug ingredient) Drug/Non Drug Allergy documented on EMR Reaction Allergy Type Onset Date Status scallops (uncoded) Unknown Allergy A ctive ciprofloxacin Cipro Unknown Drug Allergy Act fortino Sulfa Unknown Drug Allergy Active Reason For Referral No Information Medications Medication SIG (Take, Route, Frequency, Duration) Notes Start Date End Date Status Levothyroxine Sodium 25 MCG Tablet 1 tablet Orally Once a day Active Aspir-81 81 MG Tablet Delayed Release 1 tablet Orally Once a day Active Vitamin B Complex Tablet Orally Active Simvastatin 20 MG Tablet 1 tablet in the evening Orally Once a day Active Vitamin D3 1000 UNIT Capsule 1 capsule O rally Once a day Active Caltrate 600+D Plus Minerals 600-800 MG-UNIT Tablet Chewable 1 tablet Orally Twice a day Active Social History Social History Additional Details Category Social Info Options Details Miscellaneous: Marital status: Occupation: retired Problems Problem Type SNOMED Code ICD Code Onset Dates Problem Status W/U Status Risk Notes Problem Irritable bowel syndrome ([id number]) Irritable bowel syndrome without diarrhea (K58.9) Active confirmed Plan Of Treatment No Information Insurance Providers Payer Name Payer Address Payer Phone Subscriber Number Group Number Insured Name Patient Relationship to Insured Coverage Start Date Coverage End Date [facility] [employer] [address] [place] [address] [phone] [id number] JAY MENDOZA Self - patient is the insured Medical (General) History Medical History History ICD Code colonoscopy 12-25-2008 colon polyp elevated cholesterol hypothyroidism mitral valve prolapse osteopenia breast cancer with mastectomy Denies ME,DM,CVA,Lung disease,renal dise ase Surgical History Surgery Date(Month/Year) tubal ligation 1970 mastectomy 1998 right knee arthroscopy 1994
--- OUTSIDE RECORDS SUMMARY | 2025-08-12 11:12 | XMS_ITS | Patient Health Record ---
Author Organization [facility] Zari chanel [place] Address [address] [place] [address] Care Team Providers Care Senior Bioinformatics Specialist Name Role Phone Darrian Proctor MD Primary Care Provider Unareno ilPatti Donald Unavailable [phone] Allergies Allergen (clinical drug ingredient) Drug/Non Drug [...] Referring Provider Last Name Hitesh [facility] [place] Referred Provider Patti Andrade Referred Address [address] [facility],[place], [place],[address], Referred Provider Specialty Podiatry Referral Priority Routine Medications Medication SIG (Take, Route, Frequency, Duration) Notes Start Date End Date Status Vitamin C Active Vitamin D Active Furosemide 20 MG Oral; Duration: 90 Days Active Eliquis 2.5 MG as directed Orally Active B-Complex Active Donepezil HCl 10 MG Oral; Duration: 90 Active Warfarin Sodium 10 MG 1 tablet Orally On ce a day; Duration: 48 days Not-Takin g Levothyroxine Sodium 75 MCG Oral; Duration: 90 Days Active Metoprolol Succinate ER 100 MG Oral; Duration: 90 Days Active Immunizations Vaccine Route Administration Date Status Comme nts Influenza Unknown 04/27/2024 Administered Influenza Unknown 05/29/2025 Administered Social History Tobacco Use: Social History Observation Description Date Details (start date - stop date) Never Smoker NA - NA Tobacco use other than smoking: Question Answer Notes Are you an other tobacco user? No Tobacco Control (Standard) Question Answer Notes Tobacco use: Nonsmoker Additional Findings: Tobacco non-user Current no nsmoker AUDIT-C (Standard) Question Answer Notes Did you have a drink containing alcohol in the p ast year? No Points 0 Interpretation Negative Problems Problem Type SNOMED Code ICD Code Onset Dates Problem Status W/U Status Risk Notes Problem Acquired hammer toe of right foot (4581970515253463) Other hammer toe(s) (acquired), right foot (M20.41) Active confirmed Problem Acquired hammer toe of left foot (0633162162604345) Other hammer toe(s) (acquired), left foot (M20.42) Active confirmed Problem Bilateral atherosclerosis of arteries of lower limbs (disorder) (89851351450140791 ) Atherosclerosis of pala artery of both lower extremities, with unspecified presence of clinical manifestation (I70.203) Active confirmed Vital Signs Blood pressure diastolic 65 mm Hg 07/07/2025 Height 5 ft 2 in in 07/07/2025 Blood pressure systolic 128 mm Hg 07/07/2025 Weight 78 lbs 07/07/2025 BMI 14.26 kg/m2 07/07/2025 Encounters Encounter Location Date Provider Diagnosis [facility] [address] 12/31/2024 Patti Perica Atherosclerosis of pala artery of both lower extremities, with unspecified presence of clinical manifestation I70.203 ; Tinea unguium B35.1 ; Pain in right toe(s) M79.674 ; Pain in left toe(s) M79.675 and Ingrown [facility] L60.[facility] [address] 04/01/2025 Patti Perica Atherosclerosis of pala artery of both lower extremities, with unspecified presence of clinical manifestation I70.203 ; Tinea unguium B35.1 ; Pain in right toe(s) M79.674 and Pain in left toe(s) M79.675 [facility] [address] [place] [address] 07/07/2025 Patti Andrade Atherosclerosis of pala artery of both lower extremities, with unspecified presence of clinical manifestation I70.203 ; Tinea unguium B35.1 ; Pain in right toe(s) M79.674 ; Pain in left toe(s) M79.675 and Ingrown nail L60.0 Assessments Encounter Date Diagnosis (ICD Code) Assessment Notes Treatment Notes Treatment Clinical Notes Section Notes 12/31/2024 Tinea unguium (ICD-10 - B35.1) 12/31/2024 Atherosclerosis of pala artery of both lower extremities, with unspecified presence of clinical manifestation (ICD-10 - I70.203) 04/01/2025 Tinea unguium (ICD-10 - B35.1) 04/01/2025 Atherosclerosis of pala artery of both lower extremities, with unspecified presence of clinical manifestation (ICD-10 - I70.203) 07/07/2025 Atherosclerosis of pala artery of both lower extremities, with unspecified presence of clinical manifestation (ICD-10 - I70.203) 04/01/2025 Pain in right toe(s) (ICD-10 - M79.674) 07/07/2025 Tinea unguium (ICD-10 - B35.1) 07/07/2025 Pain in right toe(s) (ICD-10 - M79.674) 12/31/2024 Pain in right toe(s) (ICD-10 - M79.674) 12/31/2024 Pain in left toe(s) (ICD-10 - M79.675) 04/01/2025 Pain in left toe(s) (ICD-10 - M79.675) 07/07/2025 Pain in left toe(s) (ICD-10 - M79.675) 07/07/2025 Ingrown nail (ICD-10 - L60.0) 12/31/2024 Ingrown nail (ICD-10 - L60.0) Plan Of Treatment Next Appt Details Provider Name:Patti Mell ponce, 10/13/2025 10:00:00 AM, [address] [facility], [place], [address], Insurance Providers Payer Name Payer Address Payer Phone Subscriber Number Group Number Insured Name Patient Relationship to Insured Coverage Start Date Coverage End Date [facility] 64 Medicare Preferred [address] [place] [address] [id number] Sandra Herrera Self - patient is the insured Medical (General) History Medical History History ICD Code Cancer covid-19 Dementia Chicken pox thyroid congestive heart failure Surgical History Surgery Date(Month/Year) tubal ligation 1970 mastectomy 1998 torn knee ligament 1994 3 micro clips attached to mitral valve 1 Hospitalization History Reason Date(Month/[place] [facility] [place] [facility] [place]2024
== END 2025-08-12 10:16 | disposition home or self-care (01) ==
LOC: HO.HMCH 09:38
PROVIDERS: PCP Internal Medicine; Visit Provider Internal Medicine
DX: I48.20 Chronic atrial fibrillation, unspecified (principal); I50.9 Heart failure, unspecified; N18.4 Chronic kidney disease, stage 4 (severe); G30.9 Alzheimer's disease, unspecified; F02.80 Dementia in other diseases classified elsewhere, unspecified severity, without behavioral disturbance, psychotic disturbance, mood disturbance, and anxiety; N13.30 Unspecified hydronephrosis; I38 Endocarditis, valve unspecified; E03.9 Hypothyroidism, unspecified; I34.0 Nonrheumatic mitral (valve) insufficiency; E78.00 Pure hypercholesterolemia, unspecified; M81.0 Age-related osteoporosis without current pathological fracture; K58.9 Irritable bowel syndrome, unspecified; R79.89 Other specified abnormal findings of blood chemistry

== ENCOUNTER → 2025-08-12 09:37 | Outpatient (BNVA) | payer MEDICARE, SELFPAY | PROVIDERS: PCP Internal Medicine; Visit Provider Internal Medicine | DX: N18.4 Chronic kidney disease, stage 4 (severe) (principal); I48.20 Chronic atrial fibrillation, unspecified; N13.30 Unspecified hydronephrosis; I50.9 Heart failure, unspecified; I38 Endocarditis, valve unspecified; I34.0 Nonrheumatic mitral (valve) insufficiency; E03.9 Hypothyroidism, unspecified; E78.00 Pure hypercholesterolemia, unspecified; M81.0 Age-related osteoporosis without current pathological fracture; K58.9 Irritable bowel syndrome, unspecified; R79.89 Other specified abnormal findings of blood chemistry; G30.9 Alzheimer's disease, unspecified; F02.80 Dementia in other diseases classified elsewhere, unspecified severity, without behavioral disturbance, psychotic disturbance, mood disturbance, and anxiety | CPT/HCPCS: 99212 ==